=== PATIENT | female | born 1940 | race Two or more races ===

== ENCOUNTER 2024-11-29 17:12 | Inpatient (IN) | payer MEDICARE, MEDICAID, SELFPAY ==
[2024-11-29] VITALS (10 sets, daily range): BP systolic 155–179; BP diastolic 71–113; PULSE 87–95; RESP 18–97; TEMP 36.7–37; O2SAT 98–100; BMI 23.0; BMI 24.7
--- NOTE | 2024-11-29 17:26 | XR_ITS ---
Examination: Shoulder,right, 3 views Technique: Shoulder AP internal rotation, AP external rotation, Y view shoulder, 3 views Exam date and time :November 29, 2024 at 1801 hours INDICATIONS: Ground-level fall today with injury to the shoulder, shoulder pain. FINDINGS: Acute mildly impacted fracture fracture humeral neck Fractures, comminuted through the humeral head greater tuberosity No shoulder dislocation IMPRESSION: Acute fractures humeral head and neck
--- NOTE | 2024-11-29 17:26 | XR_ITS ---
Examination: CT brain head without contrast. 2-D sagittal coronal reconstructions Date and time of exam:November 29, 2024 1845 hours COMPARISON: September 04, 2019 INDICATIONS: Ground-level fall today images of the head, patient is anticoagulated CTDI: vol (mGy):48.8 DLP: (mGycm):896 Technique: Multiple CT axial sections of the brain have been obtained, 5 mm slice thickness. Contrast has not been administered. 2-D sagittal, coronal reconstructions have been obtained Low dose protocols were performed. One or more of the following dose reduction techniques were used; automated exposure control, adjustment of the mA and/or KV according to patient size, use of iterative reconstruction technique. Findings: No significant ventricular enlargement. Intra-axial or extra-axial hemorrhage density is not seen. No mass effect or midline shift Basal cisterns are not remarkable. Fourth ventricle is midline. Cranial vault intact. Impression: Negative for acute hemorrhage, mass effect or midline shift
--- NOTE | 2024-11-29 17:26 | XR_ITS ---
Examination: CT cervical spine without contrast 2-D sagittal reconstructions 2-D coronal reconstructions 3-D reconstructions. Exam date and time:November 29, 2024 1845 hours INDICATIONS: Ground-level fall today with injury to the neck, neck pain CTDI:vol (mGy) 7.6 DLP: (mGycm) 152 Technique: Multiple 2 mm axial sections of the cervical spine have been obtained. The coronal and sagittal reconstructions have been obtained. 3-D reconstructions have been obtained. Low dose protocols were performed. One or more of the following dose reduction techniques were used; automated exposure control, adjustment of the mA and/or KV according to patient size, use of iterative reconstruction technique. Findings: Axial sections demonstrate intact base of the skull. C1 exhibit satisfactory relationship to the odontoid. No acute cervical vertebral body fracture seen. Alignment posterior spinous processes satisfactory. Impression: No acute cervical fracture.
--- NOTE | 2024-11-29 17:26 | XR_ITS ---
Examination: Humerus 2 views right Technique: Humerus, AP lateral 2 views Date and time of exam: November 29, 2024 1808 hours INDICATIONS: Ground-level fall today with injury to the right arm, right arm pain. FINDINGS: Acute impacted fracture right humeral neck Comminuted fracture is humeral head through the greater tuberosity Shaft of the humerus mid and distal intact IMPRESSION: Acute fractures humeral head and neck
--- NOTE | 2024-11-29 17:26 | XR_ITS ---
Examination: AP chest single view Technique one AP portable semiupright chest single view Exam date and time: November 29, 2024 1759 hours INDICATIONS: Ground-level fall today with image of the chest, chest pain FINDINGS: Mildly larger and cardiac contour. Mild elevation right hemidiaphragm. No pneumothorax. Clavicles and ribs appear intact Partial visualization right humerus fractures IMPRESSION: No pneumothorax Please see the right humerus report
--- NOTE | 2024-11-29 17:35 | PC.NURSE ---
SLIP AND FALL LANDING O RIGHT SIDE BODY. C/O PAIN TO RIGHT ARM/SHOULDER AND ALL OF RIGHT LEG
--- NOTE | 2024-11-29 17:36 | PD.EDADULT ---
ED General RME/HPI General Chief complaint: Fall Stated complaint: FALL Time Seen by Provider: 11/29/24 17:25 Arrival date/time: 11/29/24 17:12 CC: Right shoulder/upper arm, right hip pain HPI patient slipped while attempting to put on her slippers while getting up from a sofa falling directly onto a tile floor. Falling onto her right side states minor strike for her head. Patient denies LOC or ALOC. Patient presents to the ER via EMS who report pain a 10 out of 10, no loss of consciousness the fall was not witnessed. Please note patient is visiting here from [place]. Related Data Home Medications ?Medication ?Instructions ?Recorded ?Confirmed ergocalciferol (vitamin D2) 1,250 50,000 unit PO QWEEK #0 caps 11/17/13 09/04/19 mcg (50,000 unit) capsule (Vitamin D2) omega-3 fatty acids 1,000 mg 1 cap PO DAILY ##0 11/17/13 09/04/19 capsule (Fish Oil Concentrate) albuterol sulfate 90 mcg/actuation 2 puff inhalation QID PRN sob 08/01/19 09/04/19 aerosol inhaler (Ventolin HFA) alendronate 70 mg tablet (Fosamax) 70 mg PO QWEEK 08/01/19 09/04/19 hydralazine 25 mg tablet 25 mg PO TID 08/01/19 09/04/19 losartan 50 mg tablet 50 mg PO QDAY 08/01/19 09/04/19 multivitamin-ferrous 1 tab PO QDAY 08/01/19 09/04/19 fumarate-folic acid 18 mg-400 mcg tablet (Centrum) prednisone 20 mg tablet 20 mg PO DAILY 08/01/19 09/04/19 calcium ER 600 mg (as carb,cit)-D3 1 tab PO BID 08/13/19 09/04/19 12.5 mcg (500 unit) tablet, ext.rel (Citracal-D3 Slow Release) omeprazole 40 mg capsule,delayed 40 mg PO DAILY 08/13/19 09/04/19 release atorvastatin 40 mg tablet 40 mg PO QDAY 08/15/19 09/04/19 prednisone 10 mg tablet 10 mg PO HS 09/02/19 09/04/19 acetaminophen 500 mg capsule 1,000 mg PO Q6H PRN Pain 09/04/19 09/04/19 Previous Rx's ?Medication ?Instructions ?Recorded clopidogrel 75 mg tablet (Plavix) 75 mg PO QDAY #30 tabs 09/24/15 fluticasone 250 mcg-salmeterol 50 1 inh inhalation BID #0 ea 08/17/19 mcg/dose blistr powdr for inhalation (Advair Diskus) folic acid 1 mg tablet 1 mg PO QDAY #30 tabs 08/17/19 ondansetron HCl 4 mg tablet 4 mg PO Q8H PRN nausea and 09/04/19 (Zofran) vomiting #20 tabs Allergies Allergy/AdvReac Type Severity Reaction Status Date / Time shrimp Allergy Severe Wheezing Verified 09/02/19 08:54 NSAIDS (Non-Steroidal Allergy Intermediate Swelling Verified 08/13/19 09:41 Anti-Inflamma Penicillins Allergy Intermediate Rash Verified 08/13/19 09:41 Review of Systems Review of Systems Narrative Review of Systems: GEN: No fever, no chills, no weight loss EYES: No discharge, no visual changes, no pain HEENT: No ear pain, no congestion, no sore throat PULM: No shortness of breath, no cough, no congestion CV: No chest pain, no dyspnea on exertion, no palpitations GI: No nausea, no vomiting, no diarrhea, no pain, no constipation : No frequency, no urgency, no dysuria MUSC/SKEL: No joint pain, specifically right shoulder upper arm, right hip. No back pain SKIN: No rash PSYCH: No hallucinations, no depression HEME/LYMPH: No easy bleeding or bruising tendencies NEURO: No weakness, no headache ED Exam Narrative Physical exam: [General: In moderate discomfort but not in any acute distress Head normocephalic no step-offs hematomas induration ulcerations or depressions. HEENT: Eyes pupils are PERRLA EOMs intact mouth pink moist membranes uvula is midline swallow symmetrical phonation is normal. Patient has dentures therefore there is unable to assess where there is a step-off but no tenderness to palpation of the upper and lower mandible. No pops or clicks with palpation of the TMJ with mastication. Swallow symmetrical phonation is normal. No otorrhea no rhinorrhea no raccoon's eyes or Colmenares sign. Neck is supple nontender, full range of motion flexion extension rotation limited to in a semi-Fowlers position with a high bed back. Chest equal chest rise nontender to palpation Respiratory: Clear to auscultation no wheezes crackles or rubs CV: Rate rhythm is regular no murmurs rubs or clicks Abdomen is distended secondary to body habitus soft nontender no masses positive bowel sounds all 4 quadrants Skin: Intact no petechiae rash induration ulceration or crepitus Extremities: Decreased range of motion of the right shoulder secondary to pain. Decreased range of motion of the right elbow secondary to pain in the shoulder. Full range of motion of the wrist and digits cap refill less than 2 seconds neurosensory intact. Significant pain with lateral or medial rotation of the right lower extremity pain elicited in the upper thigh. Unable to flex or extend knee. Left lower extremity full range of motion including flexion extension of the knee ankle and digits. Cap refill in the lower digits less than 2 seconds neurosensory intact Neuro: Awake alert oriented x3 Glascow coma 15 no focal deficits] Course Quality Measures none Orders Category Date Time Status EKG (ED ONLY) *Do not use* NOW Care 11/29/24 17:27 Completed Saline [Insert IV] NOW Care 11/29/24 17:26 Active Consult to Cardiology Stat Cons 11/29/24 18:53 Ordered Consult to Nephrology Stat Cons 11/29/24 18:52 Ordered CA echo doppler complete Stat Exams 11/29/24 19:[address] cervical spine wo con Stat Exams 11/29/24 17:[address] head/brain wo con Stat Exams 11/29/24 17:[address] pelvis wo con Stat Exams 11/29/24 18:29 Completed EKG (ED Only) Stat Exams 11/29/24 17:27 Ordered XR chest 1V Stat Exams 11/29/24 17:26 Completed XR hip LT w pelvis 2-3V Stat Exams 11/29/24 17:26 Taken XR hip RT w pelvis 2-3V Stat Exams 11/29/24 18:06 Completed XR humerus RT min 2V Stat Exams 11/29/24 17:26 Completed XR shoulder RT min 2V Stat Exams 11/29/24 17:26 Completed B-Type Natriuretic Peptide Stat Lab 11/29/24 17:47 Completed CBC Stat Lab 11/29/24 17:47 Completed Comprehensive Metabolic Panel Stat Lab 11/29/24 17:47 Completed Drug Screen,Urine Stat Lab 11/29/24 17:27 Ordered LDH (Lactate Dehydrogenase) Stat Lab 11/29/24 17:47 Completed Magnesium Stat Lab 11/29/24 17:47 Completed Partial Thromboplastin Time Stat Lab 11/29/24 17:47 Completed Prothrombin Time with INR Stat Lab 11/29/24 17:47 Completed Troponin I Stat Lab 11/29/24 17:47 Completed Urinalysis Stat Lab 11/29/24 17:27 Ordered Morphine Inj Med 11/29/24 18:28 Discontinued 2 mg IVP X1 ONE Morphine Inj Med 11/29/24 18:26 Discontinued 4 mg IVP X1 ONE Ondansetron Inj [Zofran Inj] Med 11/29/24 17:26 Discontinued 4 mg IV X1 ONE Sodium Chloride 0.9% 1000 ml [Ns] 1,000 ml Med 11/29/24 17:28 Active IV 85 mls/hr fentaNYL INJ [Sublimaze Inj] Med 11/29/24 17:26 Discontinued 50 mcg IV X1 ONE fentaNYL INJ [Sublimaze Inj] Med 11/29/24 18:11 Discontinued 50 mcg IV X1 ONE Vital Signs Vital signs: Vital Signs Temperature 98.0 F 11/29/24 17:16 Pulse Rate 94 11/29/24 17:16 Respiratory Rate 18 11/29/24 17:16 Blood Pressure 179/81 H 11/29/24 17:16 Pulse Oximetry (%) 100 11/29/24 17:16 Oxygen Delivery Method Room Air 11/29/24 17:16 [facility] Patient data External records reviewed:: [facility] previous records and EMS form Clinical information provided by:: patient and EMS Social determinants that could affect healthcare access:: none Patient has the following chronic illnesses:: Peritoneal dialysis How is presenting disease/condition affected by chronic disease/condition?: uneffected by Evaluation data The following diagnostics were reviewed and interpreted by me:: lab results, radiology exam(s) and EKG tracing(s) Lab and/or radiology exams considered but not ordered:: CBC shows a leukocytosis of 16.1 H&H of 9.3 and 27.2 no there are no recent old labs to compare to. Coags within acceptable limits CMP shows sodium 133 potassium 3.6 chloride 93 CO2 23.6 gap of 16 BUN of 28 creatinine of 7.0 GFR of 5 glucose of 113. No T. bili elevation, AST at 48 ALT at 58 LDH of 291 Troponin at 0.[address] and x-ray of the pelvis show an impacted subcapital fracture of the right femoral neck X-ray of the arm shows an humeral neck fracture as well. CT head and C-spine is interpreted by me read by radiology as negative for any acute finding Interpretation Summary: Minimally displaced right humeral neck fracture, right femoral neck fracture. Patient's case discussed with Dr.'s Sally Vargas who agrees to accept the patient for orthopedics, Dr. Womack, tungsten refiner, was consulted regarding peritoneal dialysis and laboratory findings. Dr. Olivares was consulted for cardiac consult. Medications Medications considered but not ordered:: None Medication administrations:: Medication Administration History Sodium Chloride (Ns) 1,000 mls @ 85 mls/hr IV .[id number] SABRINA Stop: 12/29/24 17:27 Last Admin: 11/29/24 17:47 Dose: 85 mls/hr Documented By: JUAN RAMON Discontinued Medications Fentanyl Citrate (Fentanyl Cit Inj 50 Mcg/Ml Amp 2ml) 50 mcg IV X1 ONE Stop: 11/29/24 17:27 Last Admin: 11/29/24 17:49 Dose: 50 mcg Documented By: JUAN RAMON Fentanyl Citrate (Fentanyl Cit Inj 50 Mcg/Ml Amp 2ml) 50 mcg IV X1 ONE Stop: 11/29/24 18:12 Last Admin: 11/29/24 18:18 Dose: 50 mcg Documented By: JUAN RAMON Morphine Sulfate (Morphine Sulf Inj 10 Mg/Ml Vial) 4 mg IVP X1 ONE Stop: 11/29/24 18:27 Last Admin: 11/29/24 19:23 Dose: Not Given Documented By: BATSHEVA Non-Admin Reason: Discontinued Morphine Sulfate (Morphine Sulf Inj 10 Mg/Ml Vial) 2 mg IVP X1 ONE Stop: 11/29/24 18:29 Last Admin: 11/29/24 19:20 Dose: 2 mg Documented By: BATSHEVA Ondansetron HCl (Ondansetron Inj 2 Mg/Ml Inj 2 Ml) 4 mg IV X1 ONE; Protocol Stop: 11/29/24 17:27 Last Admin: 11/29/24 17:47 Dose: 4 mg Documented By: JUAN RAMON None Consultations Consultation(s) initiated? (list below): Yes Consultation #1 (Physician, Specialty, Details): Luna Time: 19:00 Consultation #2 (Physician, Specialty, Details): Anumandla Time: 19:30 Diagnosis Differential Diagnosis ED Complaint MDM: Arm fracture hip fracture leg fracture Most likely diagnosis given after review of the tests above:: Humerus fracture femoral neck fracture Admission Indicated Admission indicated?: indicated Explain why admission is indicated or not indicated:: Require surgical management Admission Request Was there a request for admission?: No Disposition Plan Disposition Plan: Admit Medical Decision Making Differential Diagnosis Differential Diagnosis: Arm fracture hip fracture leg fracture Lab Data 11/29/24 17:47 11/29/24 17:47 Labs: Lab Results 11/29/24 Range/Units 17:47 WBC 16.1 H (3.6-11.0) Thou/mm3 RBC 3.03 L (4.00-5.20) Miln/mm3 Hgb 9.3 L (12.0-16.0) g/dL Hct 27.2 L (36.0-46.0) % MCV 90 (80-100) fL MCH 30.7 (25.0-35.0) pg MCHC 34.2 (31.0-37.0) g/dl RDW Std Deviation 48.1 H (36.4-46.3) fL Plt Count 390 (140-440) Thou/mm3 Neut % (Auto) 76 (37-80) % Lymph % (Auto) 16 (10-50) % [place] % (Auto) 6 (0-12) % Eos % (Auto) 1 (0-10) % Baso % (Auto) 0 (0-2.5) % Neut # (Auto) 12.2 H (1.8-7.7) Thou/mm3 Lymph # (Auto) 2.5 (1.0-4.8) Thou/mm3 [place] # (Auto) 1.0 H (0.0-0.8) Thou/mm3 Eos # (Auto) 0.2 (0.0-0.5) Thou/mm3 Baso # (Auto) 0.1 (0.0-0.2) Thou/mm3 Immature Gran # (Auto) 0.11 H (0.00-0.00) Thou/mm3 Absolute Nucleated RBC 0.00 (0.00-0.00) Thou/mm3 Immature Gran % 1 H (0-0) % Nucleated RBC % 0 (0) /100 WBC PT 11.1 (9.0-12.2) Seconds INR 1.0 (0.9-1.3) APTT 28.7 (22.0-36.0) Seconds Sodium 133 L (136-145) mMol/L Potassium 3.6 (3.4-5.1) mMol/L Chloride 93 L (98-107) mMol/L Carbon Dioxide 23.6 (20.0-31.0) mMol/L Anion Gap 16 (7-16) BUN 28 H (9-23) mg/dL Creatinine 7.0 H* (0.6-1.3) mg/dL Estim Creat Clear Calc 4.2 L (>60) mL/min eGFR 5 L* (60 - ) See Note BUN/Creatinine Ratio 4 L (12-20) Ratio Glucose 113 H (74-106) mg/dL Calculated Osmolality 272 L (275-295) Calcium 9.0 (8.3-10.6) mg/dL Corrected Calcium 9.4 (8.5-10.1) mg/dL Magnesium 1.6 (1.6-2.6) mg/dL Total Bilirubin 0.3 (0.3-1.2) mg/dL AST 48 H (0-34) U/L ALT 58 H (10-49) U/L Alkaline Phosphatase 83 (46-116) U/L Lactate Dehydrogenase 291 H (120-246) U/L Troponin I 0.039 (0.0-0.045) ng/mL B-Natriuretic Peptide 653 H* (0-100) pg/mL Total Protein 6.4 (5.7-8.2) gm/dL Albumin 3.5 (3.4-4.8) gm/dL Globulin 2.9 (2.3-3.5) gm/dL Albumin/Globulin Ratio 1.2 (1.2-2.2) Discharge Plan Plan Patient Disposition: Other Care w/in Hosp ([facility]) Patient condition on transfer: Stable Prescriptions/Referrals Prescriptions/Med Rec: No Action omega-3 fatty acids [Fish Oil Concentrate] 1 CAP capsule 1 cap PO DAILY Qty: 0 ergocalciferol (vitamin D2) [Vitamin D2] 50,000 UNIT capsule 50,000 unit PO QWEEK Qty: 0 Rx Instructions: MONDAYS clopidogrel [Plavix] 75 MG tablet 75 mg PO QDAY Qty: 30 0RF losartan 50 mg Tablet 50 mg PO QDAY alendronate [Fosamax] 70 mg Tablet 70 mg PO QWEEK Rx Instructions: MONDAYS prednisone 20 mg Tablet 20 mg PO DAILY hydralazine 25 mg Tablet 25 mg PO TID Centrum 18-400 mg-mcg Tablet 1 tab PO QDAY albuterol sulfate [Ventolin HFA] 90 mcg/actuation Hfa Aerosol Inhaler 2 puff INHALATION QID PRN (Reason: sob) prednisone 10 mg Tablet 10 mg PO HS ondansetron HCl [Zofran] 4 mg tablet 4 mg PO Q8H PRN (Reason: nausea and vomiting) Qty: 20 0RF acetaminophen 500 mg Capsule 1,000 mg PO Q6H PRN (Reason: Pain) omeprazole 40 mg Capsule,Delayed Release(Dr/Ec) 40 mg PO DAILY calcium carb, citrate-vit D3 [Citracal-D3 Slow Release] 600 mg calcium- 500 unit Tablet Extended Release 1 tab PO BID atorvastatin 40 mg Tablet 40 mg PO QDAY folic acid 1 mg Tablet 1 mg PO QDAY Qty: 30 0RF fluticasone propion-salmeterol [Advair Diskus] 250-50 mcg/dose Blister With Device 1 inh INHALATION BID Qty: 0 0RF Referrals: No Primary/Family,Physician [Primary Care Provider] - In 1 week Problem List Clinical Impression: Closed fracture of neck of right femur, Closed fracture of neck of right humerus, Fall from ground level Patient/Caregiver Discharge Instructions Print Language: Greenlandic Stand Alone Forms: Saranya Award Info., Patient Portal Info Letter PA/LIVE HANGER Supervising Physician PA/LIVE HANGER Supervising Physician: George Obrien ENP
[2024-11-29] MEDS: ONDANSETRON INJ 2 MG/ML INJ 2 ML 4 MG IV ×2 (17:47→22:09)
[2024-11-29] MEDS: SODIUM CHLORIDE 0.9% 1000 ML 1,000 ML 85 ML IV (17:47)
[2024-11-29] MEDS: fentaNYL CIT INJ 50 mCg/ML AMP 2ML IV ×2 (17:49→18:18)
[2024-11-29 17:59] LABS: Basophils # (Auto) 0.1 Thou/mm3 (0.0-0.2); Basophils % (Auto) 0 % (0-2.5); Eosinophils # (Auto) 0.2 Thou/mm3 (0.0-0.5); Eosinophils % (Auto) 1 % (0-10); Hematocrit 27.2 % (36.0-46.0); Hemoglobin 9.3 g/dL (12.0-16.0); Immature Granulocytes % (Auto) 1 % (0-0); Immature Granulocytes Auto 0.11 Thou/mm3 (0.00-0.00); Lymphocytes # (Auto) 2.5 Thou/mm3 (1.0-4.8); Lymphocytes % (Auto) 16 % (10-50); Mean Corpuscular HGB Conc 34.2 g/dl (31.0-37.0); Mean Corpuscular Hemoglobin 30.7 pg (25.0-35.0); Mean Corpuscular Volume 90 fL (80-100); Monocytes % (Auto) 6 % (0-12); Neutrophils # (Auto) 12.2 Thou/mm3 (1.8-7.7); Neutrophils % (Auto) 76 % (37-80); Nucleated Red Blood Cell % 0 /100 WBC (0); Platelet Count 390 Thou/mm3 (140-440); RDW Standard Deviation 48.1 fL (36.4-46.3); Red Blood Count 3.03 Miln/mm3 (4.00-5.20); White Blood Count 16.1 Thou/mm3 (3.6-11.0)
--- NOTE | 2024-11-29 18:06 | XR_ITS ---
Examination:Right hip AP, lateral, AP pelvis 3 views Technique: Hip AP lateral, AP pelvis, 3 views Exam date and time:November 29, 2024 1809 hours INDICATIONS: Patient fell today with injury the right hip, right hip pain. FINDINGS: Acute impacted right subcapital hip fracture Left hip bones of the pelvis is intact IMPRESSION: Acute impacted right subcapital fracture.
[2024-11-29 18:20] LABS: Alanine Aminotransferase 58 U/L (10-49); Albumin, Serum 3.5 gm/dL (3.4-4.8); Albumin/Globulin Ratio 1.2 (1.2-2.2); Alkaline Phosphatase 83 U/L (46-116); Anion Gap 16 (7-16); Aspartate Amino Transferase 48 U/L (0-34); BUN/Creatinine Ratio 4 Ratio (12-20); Bilirubin,Total 0.3 mg/dL (0.3-1.2); Blood Urea Nitrogen 28 mg/dL (9-23); Calcium (Corrected) 9.4 mg/dL (8.5-10.1); Carbon Dioxide 23.6 mMol/L (20.0-31.0); Chloride 93 mMol/L (98-107); Estimated Creatinine Clearance 4.2 mL/min (>60); Globulin 2.9 gm/dL (2.3-3.5); Glucose 113 mg/dL (74-106); LDH (Lactate Dehydrogenase) 291 U/L (120-246); Magnesium 1.6 mg/dL (1.6-2.6); Osmolality,Calculated 272 (275-295); Potassium 3.6 mMol/L (3.4-5.1); Sodium 133 mMol/L (136-145); Total Protein 6.4 gm/dL (5.7-8.2); Troponin I 0.039 ng/mL (0.0-0.045); eGFR 5 See Note
[2024-11-29 18:27] LABS: Partial Thromboplastin Time 28.7 Seconds (22.0-36.0); Prothrombin Time 11.1 Seconds (9.0-12.2)
[2024-11-29 18:28] LABS: B-Type Natriuretic Peptide 653 pg/mL (0-100)
--- NOTE | 2024-11-29 18:29 | XR_ITS ---
Examination: CT pelvis without intravenous contrast. 2-D sagittal and coronal reconstructions. Date and time of exam:November 29, 2024 at 1849 hours INDICATIONS: Patient fell today with injury to the right hip, right hip pain CTDI: vol (mGy) :5.18 DLP: (mGycm) : 161 Technique: Multiple 3 mm axial sections of the pelvis have been obtained with the 64 slice high resolution scanner. 2-D sagittal and coronal reconstructions. Low dose protocols were performed. One or more of the following dose reduction techniques were used; automated exposure control, adjustment of the mA and/or KV according to patient size, use of iterative reconstruction technique. Findings: Moderate osteopenia Sacral segments, iliac bones, acetabular regions appear intact Acute impacted right subcapital hip fracture No active dislocation IMPRESSION: Acute impacted right subcapital hip fracture
[2024-11-29] MEDS: MORPHINE SULF INJ 10 MG/ML VIAL 2 MG IVP (19:20)
--- NOTE | 2024-11-29 20:02 | EVENTNT_ITS ---
Documentation for date of: 11/29/24 Event Note Event Note: An 84-year-old female presented to the ER with the chief complaint of right- sided hip and shoulder pain following a mechanical fall. The patient reports that while sitting on the sofa holding a cup of tea, she attempted to stand to get something to eat. As she tried to slip her feet into her home slippers on the tile yovani, her feet became entangled, resulting in a fall onto her right side. She did not lose consciousness but did hit her head. She experienced significant pain on her right side, particularly in the shoulder, and was unable to get up. Her grandson, who had just returned from school, heard her cries and alerted her daughter, who returned home shortly after and called EMS. The patient was transported to the hospital via ambulance. She reports decreased appetite over several days preceding the fall. The patient has a history of HTN, CKD on peritoneal dialysis for 3?4 years, HLD, CVA, and asthma. Current medications include Calcitriol, Metoprolol, Atorvastatin, Plavix, Pantoprazole, and Lorazepam. Social history is negative for smoking, alcohol, and recreational drug use. She resides in [place] but is currently staying with her daughter temporarily due to her son's travel. She is non-ambulatory and dependent for care. In the ER, vital signs recorded as temp 98.0 F, HR 94, RR 18, BP 179/81 mmHg. Labs revealed WBC 16.1 , Hb 9.3 , Plt 390, Na 130 , K 3.6, BUN 28, Cr 7, Glucose 113, BNP [address] demonstrated an acute impacted right subcapital hip fracture. X-ray revealed acute fractures of the right humeral head and neck. Head CT was negative for acute hemorrhage, mass effect, or midline shift. Ortho was consulted; cardiology clearance is needed. Patient was admitted. Right Hip Fracture (Acute impacted right subcapital fracture) Right Shoulder Fracture (Acute humeral head and neck fracture) #Assessment: - Mechanical fall, inability to ambulate, localized right hip pain - Imaging: CT confirming acute impacted right subcapital fracture, X-ray confirming acute humeral head and neck fracture - Elderly, non-ambulatory, multiple comorbidities #Plan: - Ortho consult obtained; awaiting cardiology clearance - Pain management with scheduled acetaminophen and opioids as needed - Immobilization with sling or shoulder immobilizer - DVT prophylaxis - Fall risk precautions, initiate PT/OT post-operatively - Hold plavix now Hypertension #Assessment: - Elevated BP on admission (179/81 mmHg), chronic history of HTN - On Metoprolol #Plan: - Continue home antihypertensive regimen - Monitor BP Chronic Kidney Disease on Peritoneal Dialysis #Assessment: - ESRD on peritoneal dialysis x 3?4 years - Labs: Cr 7, BUN 28, Na 130, K 3.6 #Plan: - Coordinate with nephrology for dialysis schedule around surgery - Monitor electrolytes and volume status - Avoid nephrotoxic medications; dose-adjust meds as needed - Renal-safe pain control plan Anemia #Assessment: - Hb 9.3 g/dL, likely multifactorial #Plan: - Monitor CBC daily - Evaluate for iron studies, B12, folate Leukocytosis #Assessment: - WBC 16.1; unclear if stress response, occult infection, or other etiology - No fever; no localizing signs of infection #Plan: - Monitor WBC trend - Check procalcitonin
--- NOTE | 2024-11-29 21:54 | PD.RESHP ---
Documentation for date of: 11/29/24 HPI History of Present Illness Chief complaint: Fall down History of present illness: HPI:An 84-year-old female patient with past medical history of ESRD and peritoneal dialysis following up with a machinist supervisor outside in [place]'s name is Dr. Virk, hypertension, hyperlipidemia, asthma presented to the ED after she fell down at her home. Patient reported that she was attempting to stand up from a sofa however she lost her balance and slipped and hit the right side of her body. She denied any loss of consciousness, and she mentions that she remember the incidents clearly. Patient reported mild trauma to her head however denied any loss of consciousness or abnormal movement. She called her daughter who came and picked her up and called EMS. Patient reported that she originally lives in [place] however she come to visit her son here in [place]. She has been here for the past 1 month and a half and she has not established a care with machinist supervisor outside in [facility] so far. ED course:In the ER, vital signs recorded as temp 98.0 F, HR 94, RR 18, BP 179/81 mmHg. Labs revealed WBC 16.1 , Hb 9.3 , Plt 390, Na 130 , K 3.6, BUN 28, Cr 7, Glucose 113, BNP 6[address] demonstrated an acute impacted right subcapital hip fracture. X-ray revealed acute fractures of the right humeral head and neck. Head CT was negative for acute hemorrhage, mass effect, or midline shift. Ortho was consulted; cardiology clearance is needed. Patient was admitted. PMH: As above Social hx: Alcohol: Denied Tobacco: Denied Illicit drugs: Denied Allergies: NSAIDs, penicillins Review of Systems Review of Systems Systems Reviewed: All systems reviewed, normal except as documented Exam Vital Signs Temp Pulse Resp BP Pulse Ox O2 Del Method 98.1 F 94 18 172/109 H 100 Room Air 11/29/24 20:05 11/29/24 20:05 11/29/24 20:05 11/29/24 20:05 11/29/24 20:05 11/29/24 20:05 Narrative Exam GEN: AOx3, able to speak full sentences however patient was in pain, HEENT: NC/AC, oral mucosa moist, neck supple CVS: RRR, S1-S2 present, no murmurs appreciated RESP: CTAB GI: soft,non distended, non tender, NBS MSK: Right shoulder and right hip has limited mobility, severe tenderness. SKIN: warm and dry CAR SALTER: CN II-XII and Sensation grossly intact. Results: Labs 11/30/24 07:05 11/30/24 04:46 Labs: Short CBC 11/29/24 Range/Units 17:47 WBC 16.1 H (3.6-11.0) Thou/mm3 Hgb 9.3 L (12.0-16.0) g/dL Hct 27.2 L (36.0-46.0) % Plt Count 390 (140-440) Thou/mm3 BMP 11/29/24 17:47 Sodium 133 L Potassium 3.6 Chloride 93 L Carbon Dioxide 23.6 BUN 28 H Creatinine 7.0 H* Glucose 113 H Calcium 9.0 Cardiac Enzymes 11/29/24 Range/Units 17:47 Troponin I 0.039 (0.0-0.045) ng/mL Liver Function 11/29/24 Range/Units 17:47 Total Bilirubin 0.3 (0.3-1.2) mg/dL AST 48 H (0-34) U/L ALT 58 H (10-49) U/L Alkaline Phosphatase 83 (46-116) U/L Albumin 3.5 (3.4-4.8) gm/dL Quality Measures Quality Measures none Advance care planning discussed with:: patient Medications Home Medications and Allergies Home Medications ?Medication ?Instructions ?Recorded ?Confirmed ?Type ergocalciferol (vitamin D2) 1,250 50,000 unit PO QWEEK #0 caps 11/17/13 11/30/24 History mcg (50,000 unit) capsule (Vitamin D2) omega-3 fatty acids 1,000 mg 1 cap PO DAILY ##0 11/17/13 11/30/24 History capsule (Fish Oil Concentrate) albuterol sulfate 90 mcg/actuation 2 puff inhalation QID PRN sob 08/01/19 11/30/24 History aerosol inhaler (Ventolin HFA) alendronate 70 mg tablet (Fosamax) 70 mg PO QWEEK 08/01/19 11/30/24 History hydralazine 25 mg tablet 25 mg PO TID 08/01/19 11/30/24 History losartan 50 mg tablet 50 mg PO QDAY 08/01/19 11/30/24 History multivitamin-ferrous 1 tab PO QDAY 08/01/19 11/30/24 History fumarate-folic acid 18 mg-400 mcg tablet (Centrum) prednisone 20 mg tablet 20 mg PO DAILY 08/01/19 11/30/24 History calcium ER 600 mg (as carb,cit)-D3 1 tab PO BID 08/13/19 11/30/24 History 12.5 mcg (500 unit) tablet, ext.rel (Citracal-D3 Slow Release) omeprazole 40 mg capsule,delayed 40 mg PO DAILY 08/13/19 11/30/24 History release atorvastatin 40 mg tablet 40 mg PO QDAY 08/15/19 11/30/24 History prednisone 10 mg tablet 10 mg PO HS 09/02/19 11/30/24 History acetaminophen 500 mg capsule 1,000 mg PO Q6H PRN Pain 09/04/19 11/30/24 History calcitriol 0.25 mcg capsule 0.25 mcg PO QDAY 11/30/24 11/30/24 History metoprolol tartrate 25 mg tablet mg 11/30/24 History pantoprazole 40 mg tablet,delayed mg PO 11/30/24 History release Allergies Allergy/AdvReac Type Severity Reaction Status Date / Time shrimp Allergy Severe Wheezing Verified 09/02/19 08:54 NSAIDS (Non-Steroidal Allergy Intermediate Swelling Verified 08/13/19 09:41 Anti-Inflamma Penicillins Allergy Intermediate Rash Verified 08/13/19 09:41 Visit Medications Acetaminophen (Acetaminophen 325 Mg Tablet) 650 mg PO Q6H PRN PRN Reason: Fever >100.5 and mild pain 1-3 Stop: 12/29/24 21:27 Albuterol/Ipratropium (Albuterol/Ipratropium (Duoneb) Rt Annika 3 Ml Nebu) 3 ml INH Q6HRRT SABRINA Stop: 12/30/24 00:59 Budesonide (Budesonide Rt 0.25 Mg/2 Ml Nebu) 0.25 mg INH BIDRT SABRINA Stop: 12/29/24 21:44 Hydromorphone HCl (Hydromorphone Inj 2 Mg/Ml Vial) 0.5 mg IVP Q3H PRN PRN Reason: Pain 7-10 Stop: 12/04/24 21:32 Sodium Chloride (Ns) 1,000 mls @ 40 mls/hr IV .Q24H SABRINA Stop: 12/29/24 21:36 Labetalol HCl (Labetalol Inj 5 Mg/Ml Vial 20 Ml) 10 mg IVP Q3H PRN PRN Reason: SBP >180mmHg Stop: 12/29/24 21:41 Metoprolol Tartrate (Metoprolol Tartrate 25 Mg Tablet) 12.5 mg PO BID [facility] Stop: 12/29/24 21:44 Ondansetron HCl (Ondansetron Inj 2 Mg/Ml Inj 2 Ml) 4 mg IV Q6H PRN; Protocol PRN Reason: NAUSEA OR VOMITING Stop: 12/29/24 21:32 Oxycodone/Acetaminophen (Oxycodone/Apap 5/325 Tablet) 1 tab PO Q6H PRN PRN Reason: PAIN SCALE 4-6 (Moderate Stop: 12/04/24 21:32 Pantoprazole Sodium (Pantoprazole 40 Mg Tablet) 40 mg PO QDAY [facility] Stop: 12/30/24 08:59 Pharmacy Consult (Pharmacy Renal Dose Adjustment 1 Ea) 1 each XX PRN PRN PRN Reason: CONSULT Stop: 12/29/24 21:46 Discontinued Medications Cyclobenzaprine HCl (Cyclobenzaprine 5 Mg Tablet) 2.5 mg PO X1 ONE Stop: 11/29/24 21:48 Fentanyl Citrate (Fentanyl Cit Inj 50 Mcg/Ml Amp 2ml) 50 mcg IV X1 ONE Stop: 11/29/24 17:27 Last Admin: 11/29/24 17:49 Dose: 50 mcg Fentanyl Citrate (Fentanyl Cit Inj 50 Mcg/Ml Amp 2ml) 50 mcg IV X1 ONE Stop: 11/29/24 18:12 Last Admin: 11/29/24 18:18 Dose: 50 mcg Sodium Chloride (Ns) 1,000 mls @ 85 mls/hr IV .[id number] [facility] Stop: 12/29/24 17:27 Last Admin: 11/29/24 17:47 Dose: 85 mls/hr Labetalol HCl (Labetalol Inj 5 Mg/Ml Vial 20 Ml) 10 mg IVP Q3H PRN PRN Reason: SBP >180mmHg Stop: 12/29/24 21:41 Morphine Sulfate (Morphine Sulf Inj 10 Mg/Ml Vial) 4 mg IVP X1 ONE Stop: 11/29/24 18:27 Last Admin: 11/29/24 19:23 Dose: Not Given Morphine Sulfate (Morphine Sulf Inj 10 Mg/Ml Vial) 2 mg IVP X1 ONE Stop: 11/29/24 18:29 Last Admin: 11/29/24 19:20 Dose: 2 mg Ondansetron HCl (Ondansetron Inj 2 Mg/Ml Inj 2 Ml) 4 mg IV X1 ONE; Protocol Stop: 11/29/24 17:27 Last Admin: 11/29/24 17:47 Dose: 4 mg Assessment & Plan Plan Summary:An 84-year-old female patient with past medical history of ESRD and peritoneal dialysis following up with a machinist supervisor outside in [place]'s name is Dr. Virk, hypertension, hyperlipidemia, asthma presented to the ED after she fell down at her home. Patient reported that she was attempting to stand up from a sofa however she lost her balance and slipped and hit the right side of her body. Patient was admitted for management of acute hip and shoulder fractures. #Right Hip Fracture (Acute impacted right subcapital fracture) #Right Shoulder Fracture (Acute humeral head and neck fracture) - Mechanical fall, inability to ambulate, localized right hip pain - Imaging: CT confirming acute impacted right subcapital fracture, X-ray confirming acute humeral head and neck fracture - Elderly, non-ambulatory, multiple comorbidities Plan: - Ortho consult obtained to Dr. Lee; awaiting cardiology clearance - Pain management with acetaminophen and opioids as needed - Immobilization with sling or shoulder immobilizer - DVT prophylaxis with SCDs - Fall risk precautions, initiate PT/OT post-operatively - Hold plavix now ? Muscle relaxant Flexeril 2.5 mg p.o. x 1 #Hypertension - Elevated BP on admission (179/81 mmHg), chronic history of HTN, at home on Metoprolol Plan: -Resume metoprolol tartrate 12.5 mg p.o. twice daily - Monitor BP #Chronic Kidney Disease on Peritoneal Dialysis - ESRD on peritoneal dialysis x 3?4 years - Labs: Cr 7, BUN 28, Na 130, K 3.6 ?Patient is following up with a machinist supervisor outside Dr. Virk in [place] ? Has not established care with a machinist supervisor outside in [facility] as the patient is only visiting her son for the past 1 month and a half Plan: -Nephrology was consulted, follow-up with recommendations - Monitor electrolytes and volume status - Avoid nephrotoxic medications; dose-adjust meds as needed - Renal-safe pain control plan #Anemia - Hb 9.3 g/dL, likely multifactorial Plan: - Monitor CBC daily - Evaluate for iron studies, B12, folate if needed ? Consider blood transfusion before surgery if needed #Leukocytosis most likely reactive - WBC 16.1; unclear if stress response, occult infection, or other etiology, - No fever; no localizing signs of infection Plan: - Monitor WBC trend - Check procalcitonin Hospital Maintenance: FEN: Renal diet DVT ppx: SCD GI ppx: Protonix IV lines: PIV Valdovinos: Pure wick Code status: Full code Dispo: Med/tele Patient's plan and care discussed with my attending, Dr. Teddy Salcido MD Internal Medicine PGY-2 Attending Provider Attestation/Addendum Pt was evaluated and plan formulated together with the housestaff team. I have reviewed the residents note above and agree with most of its content. Please refer to the residents note for additional details.
[2024-11-29] MEDS: CYCLObenzaPRINE 5 MG TABLET 2.5 MG PO (22:07)
[2024-11-29] MEDS: METOPROLOL TARTRATE 25 MG TABLET 12.5 MG PO (22:07)
[2024-11-29] MEDS: HYDROmorphone INJ 2 MG/ML VIAL 0.5 MG IVP (22:08)
[2024-11-29] MEDS: BUDESONIDE RT 0.25 MG/2 ML NEBU INH (22:17)
[2024-11-29] MEDS: SODIUM CHLORIDE 0.9% 1000 ML 1,000 ML 40 ML IV (22:24)
[2024-11-29 22:33] LABS: Procalcitonin 0.31 ng/ml (0.0-0.49)
[2024-11-30] VITALS (14 sets, daily range): BP systolic 130–162; BP diastolic 68–103; PULSE 77–120; RESP 11–22; TEMP 36.1–36.9; O2SAT 88–100
[2024-11-30] MEDS: ALBUTEROL/IPRATROPIUM (Duoneb) RT SOL 3 ML NEBU INH ×4 (00:57→19:09)
[2024-11-30] MEDS: HYDROmorphone INJ 2 MG/ML VIAL 0.5 MG IVP ×4 (03:47→20:12)
[2024-11-30 06:14] LABS: Alanine Aminotransferase 51 U/L (10-49); Albumin, Serum 3.6 gm/dL (3.4-4.8); Albumin/Globulin Ratio 1.2 (1.2-2.2); Alkaline Phosphatase 90 U/L (46-116); Anion Gap 16 (7-16); Aspartate Amino Transferase 37 U/L (0-34); BUN/Creatinine Ratio 4 Ratio (12-20); Bilirubin,Total 0.3 mg/dL (0.3-1.2); Blood Urea Nitrogen 31 mg/dL (9-23); Calcium (Corrected) 9.3 mg/dL (8.5-10.1); Carbon Dioxide 23.5 mMol/L (20.0-31.0); Chloride 94 mMol/L (98-107); Creatinine (Component) 7.6 mg/dL (0.6-1.3); Estimated Creatinine Clearance 4.3 mL/min (>60); Globulin 2.9 gm/dL (2.3-3.5); Glucose 124 mg/dL (74-106); Magnesium 1.7 mg/dL (1.6-2.6); Osmolality,Calculated 273 (275-295); Phosphorous 6.3 mg/dL (2.4-5.1); Potassium 4.4 mMol/L (3.4-5.1); Sodium 133 mMol/L (136-145); Total Protein 6.5 gm/dL (5.7-8.2); eGFR 5 See Note
[2024-11-30] MEDS: BUDESONIDE RT 0.25 MG/2 ML NEBU INH ×2 (06:22→19:09)
[2024-11-30 07:56] LABS: Thyroid Stimulating Hormone 0.41 uIU/mL (0.55-4.78)
[2024-11-30 08:03] LABS: Basophils % (Auto) 0 % (0-2.5); Eosinophils % (Auto) 0 % (0-10); Hematocrit 25.5 % (36.0-46.0); Immature Granulocytes % (Auto) 1 % (0-0); Immature Granulocytes Auto 0.08 Thou/mm3 (0.00-0.00); Lymphocytes # (Auto) 1.3 Thou/mm3 (1.0-4.8); Lymphocytes % (Auto) 8 % (10-50); Mean Corpuscular HGB Conc 33.7 g/dl (31.0-37.0); Mean Corpuscular Hemoglobin 30.7 pg (25.0-35.0); Mean Corpuscular Volume 91 fL (80-100); Monocytes # (Auto) 0.7 Thou/mm3 (0.0-0.8); Monocytes % (Auto) 4 % (0-12); Neutrophils % (Auto) 87 % (37-80); Nucleated Red Blood Cell % 0 /100 WBC (0); Platelet Count 341 Thou/mm3 (140-440); RDW Standard Deviation 49.1 fL (36.4-46.3); White Blood Count 16.1 Thou/mm3 (3.6-11.0)
[2024-11-30] MEDS: METOPROLOL TARTRATE 25 MG TABLET 12.5 MG PO ×2 (08:09→20:15)
[2024-11-30] MEDS: PANTOPRAZOLE 40 MG TABLET PO (08:09)
[2024-11-30 09:02] LABS: Hepatitis A Antibody IgM Non Reactive (Non React); Hepatitis B Core Antibody IgM Non Reactive (Non React); Hepatitis B Surface Ab NonReact(Not Immune) (Immune); Hepatitis B Surface Antigen Non Reactive (Non React); Hepatitis C Antibody Non Reactive (Non React)
--- NOTE | 2024-11-30 09:22 | PD.RESCONSUL ---
HPI Data of Consult Patient: new to practice Consult date: 11/30/24 Requesting Physician: Joseph Hernandez MD Admitting Provider: Leo Espinal MD Attending Provider: Joseph Hernandez MD Primary Care Provider: Physician No Primary/Family Consult Narrative Reason for consult: Preoperative cardiac risk assessment History of present illness: Ms. Lee is a 84-year-old female with past medical history of diastolic heart failure, hyperlipidemia, hypertension, end-stage renal disease on peritoneal dialysis, CVA 15 years ago, asthma and osteoarthritis who presented to [facility] emergency department on 11/29/2024 with a chief complaint of status post mechanical fall. Patient reported that she walks using a walker at home and she tripped on her slipper causing her to fall down and hit the right side of her body. Patient denied any dizziness, presyncope, loss of consciousness and mentions that she remembers the incident clearly. Patient originally lives in [place], was visiting her daughter here in [place], reports that she has limited mobility, feels short of breath after about 50-60 steps, is independent in ADLs uses a walker but feels mildly short of breath during ADLs. Patient does report history of valve problems in the past reports was hospitalized in [place] for heart problems. ED Course: ED Vitals: On presentation in ED blood pressure 179/81, heart rate 94, respiratory 18, temp 98, O2 sat 100 on room air ED Labs: ED labs significant for WBC 16.1, hemoglobin 9.3, hematocrit 27.2, RBC 3.03, platelet 390 sodium 133, potassium 3.6, chloride 93, venous CO2 23.6, BUN 28, creatinine 7.0, GFR 5, glucose 113, calcium 9.0, magnesium 1.6, bilirubin 0.3, AST 48, ALT 58, LDH 291, BNP 653 trop rapid during the cath today onin negative 0.039 ED Imaging: Cervical spine CT showed no acute cervical fracture, Chest x-ray negative for pneumothorax, CT negative for acute hemorrhage, mass effect or midline shift, Humerus x-ray shows acute fractures humeral head and neck (comminuted fracture and humeral head through greater tuberosity) Shoulder x-ray acute fracture of humeral head and neck Pelvis CT shows acute impacted right subcapital hip fracture ED Treatment:Orthopedics was consulted, recommended cardiology clearance cc:: cc: Joseph Hernandez MD Review of Systems Review of Systems Narrative Review of Systems: ROS: -CONSTITUTIONAL: Denies weight loss, fever and chills. -HEENT: Denies changes in vision and hearing. -RESPIRATORY: Positive for SOB and denies cough. -CV: Denies palpitations and Chest Pain. -GI: Denies abdominal pain, nausea, vomiting,constipation and diarrhea. -: Denies dysuria and urinary frequency. -MSK: Positive for right hip pain, right shoulder pain. -SKIN: Denies rash and pruritus. -NEUROLOGICAL: Denies headache and syncope. -PSYCHIATRIC: Denies recent changes in mood. Denies anxiety and depression. 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 Exam Vital Signs Temp Pulse Resp BP Pulse Ox O2 Del Method O2 Flow Rate 97.1 F 88 17 131/78 H 94 L Nasal Cannula 1 11/30/24 08:00 11/30/24 08:09 11/30/24 08:00 11/30/24 08:09 11/30/24 08:00 11/30/24 08:00 11/30/24 08:00 Narrative Exam Physical Exam General: Awake and in no acute distress. Conversational and non-toxic appearing. HEENT: Normocephalic, atraumatic, mucous membranes moist. Heart: Regular rate and rhythm, positive murmur in aortic area, pulmonic area and mitral area. Lungs: Clear to auscultation with no wheezing or crackles. Abdomen: Soft, nondistended, nontender, positive bowel sounds. ?No guarding or rebound tenderness. Neurologic: Alert and oriented x3, no gross neurological deficit, and patient able to move all 4 extremities. Extremities: Right arm in sling, right leg shorter than left, externally rotated. Skin: No rash or ecchymoses. Results Labs 11/30/24 07:05 11/30/24 04:46 Labs: Short CBC 11/29/24 11/30/24 Range/Units 17:47 07:05 WBC 16.1 H 16.1 H (3.6-11.0) Thou/mm3 Hgb 9.3 L (12.0-16.0) g/dL Hct 27.2 L 25.5 L (36.0-46.0) % Plt Count 390 341 D (140-440) Thou/mm3 BMP 11/29/24 11/30/24 17:47 04:46 Sodium 133 L 133 L Potassium 3.6 4.4 D Chloride 93 L 94 L Carbon Dioxide 23.6 23.5 BUN 28 H 31 H Creatinine 7.0 H* 7.6 H* D Glucose 113 H 124 H Calcium 9.0 9.0 Cardiac Enzymes 11/29/24 Range/Units 17:47 Troponin I 0.039 (0.0-0.045) ng/mL Liver Function 11/29/24 11/30/24 Range/Units 17:47 04:46 Total Bilirubin 0.3 0.3 (0.3-1.2) mg/dL AST 48 H 37 H (0-34) U/L ALT 58 H 51 H (10-49) U/L Alkaline Phosphatase 83 90 (46-116) U/L Albumin 3.5 3.6 (3.4-4.8) gm/dL Quality Measures Quality Measures none Advance care planning discussed with:: patient Medications Home Medications and Allergies Home Medications ?Medication ?Instructions ?Recorded ?Confirmed ?Type ergocalciferol (vitamin D2) 1,250 50,000 unit PO QWEEK #0 caps 11/17/13 11/30/24 History mcg (50,000 unit) capsule (Vitamin D2) omega-3 fatty acids 1,000 mg 1 cap PO DAILY ##0 11/17/13 11/30/24 History capsule (Fish Oil Concentrate) albuterol sulfate 90 mcg/actuation 2 puff inhalation QID PRN sob 08/01/19 11/30/24 History aerosol inhaler (Ventolin HFA) alendronate 70 mg tablet (Fosamax) 70 mg PO QWEEK 08/01/19 11/30/24 History hydralazine 25 mg tablet 25 mg PO TID 08/01/19 11/30/24 History losartan 50 mg tablet 50 mg PO QDAY 08/01/19 11/30/24 History multivitamin-ferrous 1 tab PO QDAY 08/01/19 11/30/24 History fumarate-folic acid 18 mg-400 mcg tablet (Centrum) prednisone 20 mg tablet 20 mg PO DAILY 08/01/19 11/30/24 History calcium ER 600 mg (as carb,cit)-D3 1 tab PO BID 08/13/19 11/30/24 History 12.5 mcg (500 unit) tablet, ext.rel (Citracal-D3 Slow Release) omeprazole 40 mg capsule,delayed 40 mg PO DAILY 08/13/19 11/30/24 History release atorvastatin 40 mg tablet 40 mg PO QDAY 08/15/19 11/30/24 History prednisone 10 mg tablet 10 mg PO HS 09/02/19 11/30/24 History acetaminophen 500 mg capsule 1,000 mg PO Q6H PRN Pain 09/04/19 11/30/24 History calcitriol 0.25 mcg capsule 0.25 mcg PO QDAY 11/30/24 11/30/24 History metoprolol tartrate 25 mg tablet mg 11/30/24 History pantoprazole 40 mg tablet,delayed mg PO 11/30/24 History release Allergies Allergy/AdvReac Type Severity Reaction Status Date / Time shrimp Allergy Severe Wheezing Verified 09/02/19 08:54 NSAIDS (Non-Steroidal Allergy Intermediate Swelling Verified 08/13/19 09:41 Anti-Inflamma Penicillins Allergy Intermediate Rash Verified 08/13/19 09:41 Visit Medications Acetaminophen (Acetaminophen 325 Mg Tablet) 650 mg PO Q6H PRN PRN Reason: Fever >100.5 and mild pain 1-3 Stop: 12/29/24 21:27 Albuterol/Ipratropium (Albuterol/Ipratropium (Duoneb) Rt Annika 3 Ml Nebu) 3 ml INH Q6HRRT SABRINA Stop: 12/30/24 00:59 Last Admin: 11/30/24 06:22 Dose: 3 ml Budesonide (Budesonide Rt 0.25 Mg/2 Ml Nebu) 0.25 mg INH BIDRT SABRINA Stop: 12/29/24 21:44 Last Admin: 11/30/24 06:22 Dose: 0.25 mg Hydromorphone HCl (Hydromorphone Inj 2 Mg/Ml Vial) 0.5 mg IVP Q3H PRN PRN Reason: Pain 7-10 Stop: 12/04/24 21:32 Last Admin: 11/30/24 08:12 Dose: 0.5 mg Sodium Chloride (Ns) 1,000 mls @ 40 mls/hr IV .Q24H [facility] Stop: 12/29/24 21:36 Last Admin: 11/29/24 22:24 Dose: 40 mls/hr Magnesium Sulfate (Magnesium Sulfate Ivpb) 4 gm in 50 mls @ 12.5 mls/hr IV X1 ONE Stop: 11/30/24 13:03 Labetalol HCl (Labetalol Inj 5 Mg/Ml Vial 20 Ml) 10 mg IVP Q3H PRN PRN Reason: SBP >180mmHg Stop: 12/29/24 21:41 Metoprolol Tartrate (Metoprolol Tartrate 25 Mg Tablet) 12.5 mg PO BID [facility] Stop: 12/29/24 21:44 Last Admin: 11/30/24 08:09 Dose: 12.5 mg Ondansetron HCl (Ondansetron Inj 2 Mg/Ml Inj 2 Ml) 4 mg IV Q6H PRN; Protocol PRN Reason: NAUSEA OR VOMITING Stop: 12/29/24 21:32 Last Admin: 11/29/24 22:09 Dose: 4 mg Oxycodone/Acetaminophen (Oxycodone/Apap 5/325 Tablet) 1 tab PO Q6H PRN PRN Reason: PAIN SCALE 4-6 (Moderate Stop: 12/04/24 21:32 Pantoprazole Sodium (Pantoprazole 40 Mg Tablet) 40 mg PO QDAY [facility] Stop: 12/30/24 08:59 Last Admin: 11/30/24 08:09 Dose: 40 mg Pharmacy Consult (Pharmacy Renal Dose Adjustment 1 Ea) 1 each XX PRN PRN PRN Reason: CONSULT Stop: 12/29/24 21:46 Discontinued Medications Cyclobenzaprine HCl (Cyclobenzaprine 5 Mg Tablet) 2.5 mg PO X1 ONE Stop: 11/29/24 21:48 Last Admin: 11/29/24 22:07 Dose: 2.5 mg Fentanyl Citrate (Fentanyl Cit Inj 50 Mcg/Ml Amp 2ml) 50 mcg IV X1 ONE Stop: 11/29/24 17:27 Last Admin: 11/29/24 17:49 Dose: 50 mcg Fentanyl Citrate (Fentanyl Cit Inj 50 Mcg/Ml Amp 2ml) 50 mcg IV X1 ONE Stop: 11/29/24 18:12 Last Admin: 11/29/24 18:18 Dose: 50 mcg Sodium Chloride (Ns) 1,000 mls @ 85 mls/hr IV .[id number] SABRINA Stop: 12/29/24 17:27 Last Infusion: 11/29/24 22:24 Dose: 0 mls/hr Labetalol HCl (Labetalol Inj 5 Mg/Ml Vial 20 Ml) 10 mg IVP Q3H PRN PRN Reason: SBP >180mmHg Stop: 12/29/24 21:41 Morphine Sulfate (Morphine Sulf Inj 10 Mg/Ml Vial) 4 mg IVP X1 ONE Stop: 11/29/24 18:27 Last Admin: 11/29/24 19:23 Dose: Not Given Morphine Sulfate (Morphine Sulf Inj 10 Mg/Ml Vial) 2 mg IVP X1 ONE Stop: 11/29/24 18:29 Last Admin: 11/29/24 19:20 Dose: 2 mg Ondansetron HCl (Ondansetron Inj 2 Mg/Ml Inj 2 Ml) 4 mg IV X1 ONE; Protocol Stop: 11/29/24 17:27 Last Admin: 11/29/24 17:47 Dose: 4 mg Assessment & Plan Plan Assessment and plan: Summary: Ms. Lee is a 84-year-old female with past medical history of diastolic heart failure, hyperlipidemia, hypertension, end-stage renal disease on peritoneal dialysis, CVA 15 years ago, asthma and osteoarthritis who presented to [facility] emergency department on 11/29/2024 with a chief complaint of status post mechanical fall. #Preoperative cardiac risk assessment #Diastolic heart failure, EF 60%, 2019, NHYA class III Patient presented status post ground-level mechanical fall, has right hip and right shoulder fracture, orthopedics consulted for cardiology clearance. Patient denied any dizziness, presyncope, loss of consciousness and mentions that she remembers the incident clearly. Patient does have murmur in aortic area, mitral area. Otherwise patient is on peritoneal dialysis, does have history of diastolic heart failure, was admitted to the hospital previously for CHF exacerbation. Patient does have shortness of breath on mild exertion, independent ADLs, walks using a walker at baseline, does have shortness of breath on activities of daily living, reports is able to walk about 50-60 steps without shortness of breath. Patient METS less than 4, RCRI Score 2 points, 10.1% risk of major cardiac event Patient is high risk for surgery, pending echocardiogram Echo 2019: Normal left ventricular size and function.Approximate ejection fraction is 60%. Mild to moderate aortic regurgitation with mild aortic stenosis. Moderate mitral regurgitation with mild posterior MAC. Moderate tricuspid regurgitation Mild PHTN. Recommendations: -Patient is high risk for surgery, cleared for surgery. -Will follow echocardiogram -Patient is euvolemic currently, continue peritoneal dialysis. -Will need close outpatient follow-up, follow-up in clinic 1 to 2 weeks after discharge #Status post ground-level mechanical fall #Right Hip Fracture (Acute impacted right subcapital fracture) #Right Shoulder Fracture (Acute humeral head and neck fracture) Patient presented status post ground-level mechanical fall, has right hip and right shoulder fracture, orthopedics consulted for cardiology clearance. Patient denied any dizziness, presyncope, loss of consciousness and mentions that she remembers the incident clearly. Humerus x-ray shows acute fractures humeral head and neck (comminuted fracture and humeral head through greater tuberosity) Shoulder x-ray acute fracture of humeral head and neck Pelvis CT shows acute impacted right subcapital hip fracture -Orthopedic surgery consulted following case #Hyperlipidemia Follow lipid panel #Hypertension Patient on metoprolol tartrate at home for blood pressure management, resumed by primary team #Asthma On DuoNeb breathing treatment, resumed budesonide #End-stage renal disease on peritoneal dialysis Nephrology consult following patient closely #History of CVA, 15 years ago #Osteoarthritis Thank you for the consult and allowing to participate in the care of the patient. Cardiology will continue to follow. Case discussed with Attending Dr. Olivares. Misha Mcgowan PGY1 Disclaimer: This note was dictated by speech recognition. Minor errors in security screener may be present due to voice recognition software. Attending Provider Attestation/Addendum I have personally seen and examined the patient separately on the above date of service and discussed the plan of care with the resident. I reviewed the resident Dr. Misha Mcgowan consultation progress note and agree with the resident findings and plan in the note above and have also edited the documentation to reflect my findings and plan. Mrs. 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 Patient was apparently using a walker at home and was trying to get on to her slippers and fell down. Mechanical fall and no evidence of any syncope or dizziness prior to the fall. Patient fell to her right side and then hurt her right hip as well as her right shoulder. Otherwise denies any chest pain chest pressure or leg swelling or PAD or palpitations dizziness or lightheadedness or syncope. Patient does complain of shortness of breath even with walking up to 50-60 steps at home. She walks with the help of walker and able to move around the house but cannot walk much outside. The shortness of breath has been worsening over the last year or so. Patient denies any other previous cardiac history and other cardiac procedures and she did not have any major surgeries except for dental procedures as well as some peritoneal dialysis catheter placement. She did not have any other orthopedic surgeries to she does complain of some pain in her joints. Patient is mildly dependent on the ADLs but completely dependent on IADLs. Lives in [facility] partly and along with her son in [place] and her daughter and Dr. Patel here in [place]. Patient has been followed up with sales service executive in [facility] and also in [place] and was told that she had valve leakage which patient is unsure at the present point of time we did tease any valvular stenosis or tight valve. Orthopedic surgery requested cardiology consultation for further preoperative cardiac risk evaluation. Assessment and plan: 1. Preoperative cardiac risk evaluation 2. Status post mechanical fall 3. Right hip fracture and acute impacted right subcapital fracture 4. Acute humeral head and neck fracture 5. Antonia's granulomatosis diagnosed 25 years ago 6. End-stage renal disease on peritoneal dialysis secondary to Antonia's for the past 3 to 4 years 7. 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 Diastolic congestive heart failure 9. HTN 10. chronic asthma on inhalers, hyperlipidemia, osteoarthritis, osteoporosis, GERD Patient scheduled for surgery for acute impacted right subcapital fracture of the right femoral neck which is intermediate risk surgery. Will require general anesthesia for the procedure. Baseline functional status presently since recent injury is less than 4 METS Patient does not have any unstable or active arrhythmias. Patient does not have any history of any CAD does not have any acute ischemic heart disease symptoms or signs at the present point of time.? Patient does not have any history of diastoic heart failure and is not in overt heart failure at the present point of time No history of any diabetes mellitus requiring insulin Patient does have history of ESRD on PD with baseline creatinine greater than 2. Patient also has history of stroke with remote more than 15 years. As noted above, patient does not have any active cardiac conditions and his RCRI risk score is 0 with with a low risk of 3.9% risk of major adverse cardiac events EKG done today showed NSR with acute ST-T changes history of ischemia. Echocardiogram performed 11/30/2024 showed Normal LV size and function. EF 55-60%. Diastolic dysfunction present but cannot be graded. Normal RV size and function. Estimated RVSP moderately elevated RVSP 55 mm hg. Moderate to Severe . AV vmax 3.8 m/s, Mean PG 38 mm hg. LATRICE 0.5 sq cm. Severe posterior mac AND moderate anterior MAC with mild mitral stenosis mean PG 5 mm hg. Moderate to sevre MR. moderate TR and mild to moderate AI. As noted above patient has moderate to severe aortic stenosis with a valve area of 0.5 cm? by the V-max is only 3.8 m/s and mean PG 38 mmHg along with a history of moderate PAH, mild mitral stenosis, moderate to severe MR, moderate TR which makes her high risk for the above surgery but not a primary diuresis as patient does not have critical aortic stenosis and the V-max is still 4 m/s with normal LVEF. Her overall EF is normal at 55 to 60% with normal RV function RVSP is only estimated to be in moderately increased at 55 mmHg. Discussed with orthopedic surgeon Dr. Ramirez as well as the anesthesiologist Dr. Mendes and the patient's daughter Dr. Patel about the high cardiac risk for the surgery and the she will need further evaluation of her valvular heart disease but cannot be done in emergently as she is not a surgical AVR candidate and will need complete evaluation for TAVR as outpatient, The patient needs an orthopedic surgery which is considered urgent and emergent for her at present point of time -should proceed with surgery as long as the patient, family as well as the surgeon agreed that she is at high risk of the surgery with higher incidence of complications given her age and comorbidities including end-stage renal disease and heart disease, diastolic heart failure Reviewed all vital signs and labs which appears to be stable except for mildly elevated blood pressures which is most likely secondary to the pain from the fracture. Recommend to proceed to the surgery without any further cardiac work-up. Recommend to avoid severe hypoxemia or hypercapnia or acidosis or hypothermia during the procedure. Recommend goal-directed fluid and volume therapy with hemodynamic monitoring intraoperatively given her history of severe . Recommend euvolemia as both hypovolemic and hypervolemic states should be avoided for the patient intraoperatively. Fall is mechanical and no evidence of any prodromal symptoms or any dizziness or syncope. Management of rest of the medical conditions as per primary team and other consultants. Thank you for the consult and allowing me to participate in the care of the patient. Cardiology will continue to follow. Jori Olivares M.D. Interventional Cardiology
[2024-11-30] MEDS: Magnesium Sulfate 4 GM Ivpb 4 GM/50 ML BAG IV (10:15)
[2024-11-30 10:50] LABS: Hemoglobin 8.6 g/dL (12.0-16.0)
[2024-11-30] MEDS: SEVELAMER CARBONATE 800 MG TABLET PO ×2 (12:24→17:51)
--- NOTE | 2024-11-30 13:10 | PD.RESCONSUL ---
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 Patient [place] been in [place] for about month and half visiting family. She stated that while trying to get up from [employer], she lost her balance and fell on her right side. Patient denies any dizziness, no history of recurrent falls. No major trauma to head. Family arrived to assist patient up. Patient reports severe pain in hip and shoulder with minor movement. Work up in ED confirmed fractures of the right humeral head and neck. CT demonstrated an acute impacted right subcapital hip fracture. Hb 9.3, sodium 130, potassium 3.6, Cr 7, GFR 5. Nephrology consulted for ESRD. PMH: as above Social: denies drinking, smoking, lives in [place] Allergies: shrimp, NSAIDS, penicillin Meds: albuterol, alendronate, atorvastatin, calcitriol, calcium carb, Plavix, hydralazine, losartan, omeprazole (med rec pending) cc:: cc: Joseph Hernandez MD Review of Systems Review of Systems Systems Reviewed: All systems reviewed, normal except as documented Exam Vital Signs Temp Pulse Resp BP Pulse Ox O2 Del Method O2 Flow Rate 97.0 F 89 18 130/68 99 Nasal Cannula 1 11/30/24 12:11/30/24 12:11/30/24 12:11/30/24 12:11/30/24 12:11/30/24 12:11/30/24 12:00 Narrative Exam GEN: AOx3, able to speak full sentences however patient was in pain, HEENT: NC/AC, oral mucosa moist, neck supple CVS: RRR, S1-S2 present, no murmurs appreciated RESP: CTAB GI: soft,non distended, non tender, NBS MSK: Right shoulder and right hip has limited mobility, severe tenderness, right arm sling SKIN: warm and dry 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 Results Labs 11/30/24 07:05 11/30/24 04:46 Labs: Short CBC 11/29/24 11/30/24 Range/Units 17:47 07:05 WBC 16.1 H 16.1 H (3.6-11.0) Thou/mm3 Hgb 9.3 L 8.6 L (12.0-16.0) g/dL Hct 27.2 L 25.5 L (36.0-46.0) % Plt Count 390 341 D (140-440) Thou/mm3 BMP 11/29/24 11/30/24 17:47 04:46 Sodium 133 L 133 L Potassium 3.6 4.4 D Chloride 93 L 94 L Carbon Dioxide 23.6 23.5 BUN 28 H 31 H Creatinine 7.0 H* 7.6 H* D Glucose 113 H 124 H Calcium 9.0 9.0 Cardiac Enzymes 11/29/24 Range/Units 17:47 Troponin I 0.039 (0.0-0.045) ng/mL Liver Function 11/29/24 11/30/24 Range/Units 17:47 04:46 Total Bilirubin 0.3 0.3 (0.3-1.2) mg/dL AST 48 H 37 H (0-34) U/L ALT 58 H 51 H (10-49) U/L Alkaline Phosphatase 83 90 (46-116) U/L Albumin 3.5 3.6 (3.4-4.8) gm/dL Quality Measures Quality Measures none Advance care planning discussed with:: other Medications Home Medications and Allergies Home Medications ?Medication ?Instructions ?Recorded ?Confirmed ?Type ergocalciferol (vitamin D2) 1,250 50,000 unit PO QWEEK #0 caps 11/17/13 11/30/24 History mcg (50,000 unit) capsule (Vitamin D2) omega-3 fatty acids 1,000 mg 1 cap PO DAILY ##0 11/17/13 11/30/24 History capsule (Fish Oil Concentrate) albuterol sulfate 90 mcg/actuation 2 puff inhalation QID PRN sob 08/01/19 11/30/24 History aerosol inhaler (Ventolin HFA) alendronate 70 mg tablet (Fosamax) 70 mg PO QWEEK 08/01/19 11/30/24 History hydralazine 25 mg tablet 25 mg PO TID 08/01/19 11/30/24 History losartan 50 mg tablet 50 mg PO QDAY 08/01/19 11/30/24 History multivitamin-ferrous 1 tab PO QDAY 08/01/19 11/30/24 History fumarate-folic acid 18 mg-400 mcg tablet (Centrum) prednisone 20 mg tablet 20 mg PO DAILY 08/01/19 11/30/24 History calcium ER 600 mg (as carb,cit)-D3 1 tab PO BID 08/13/19 11/30/24 History 12.5 mcg (500 unit) tablet, ext.rel (Citracal-D3 Slow Release) omeprazole 40 mg capsule,delayed 40 mg PO DAILY 08/13/19 11/30/24 History release atorvastatin 40 mg tablet 40 mg PO QDAY 08/15/19 11/30/24 History prednisone 10 mg tablet 10 mg PO HS 09/02/19 11/30/24 History acetaminophen 500 mg capsule 1,000 mg PO Q6H PRN Pain 09/04/19 11/30/24 History calcitriol 0.25 mcg capsule 0.25 mcg PO QDAY 11/30/24 11/30/24 History metoprolol tartrate 25 mg tablet mg 11/30/24 History pantoprazole 40 mg tablet,delayed mg PO 11/30/24 History release Allergies Allergy/AdvReac Type Severity Reaction Status Date / Time shrimp Allergy Severe Wheezing Verified 09/02/19 08:54 NSAIDS (Non-Steroidal Allergy Intermediate Swelling Verified 08/13/19 09:41 Anti-Inflamma Penicillins Allergy Intermediate Rash Verified 08/13/19 09:41 Visit Medications Acetaminophen (Acetaminophen 325 Mg Tablet) 650 mg PO Q6H PRN PRN Reason: Fever >100.5 and mild pain 1-3 Stop: 12/29/24 21:27 Albuterol/Ipratropium (Albuterol/Ipratropium (Duoneb) Rt Annika 3 Ml Nebu) 3 ml INH Q6HRRT [facility] Stop: 12/30/24 00:59 Last Admin: 11/30/24 12:21 Dose: 3 ml Budesonide (Budesonide Rt 0.25 Mg/2 Ml Nebu) 0.25 mg INH BIDRT SABRINA Stop: 12/29/24 21:44 Last Admin: 11/30/24 06:22 Dose: 0.25 mg Hydromorphone HCl (Hydromorphone Inj 2 Mg/Ml Vial) 0.5 mg IVP Q3H PRN PRN Reason: Pain 7-10 Stop: 12/04/24 21:32 Last Admin: 11/30/24 08:12 Dose: 0.5 mg Sodium Chloride (Ns) 1,000 mls @ 40 mls/hr IV .Q24H [facility] Stop: 12/29/24 21:36 Last Admin: 11/29/24 22:24 Dose: 40 mls/hr Labetalol HCl (Labetalol Inj 5 Mg/Ml Vial 20 Ml) 10 mg IVP Q3H PRN PRN Reason: SBP >180mmHg Stop: 12/29/24 21:41 Lidocaine (Lidocaine 5% 1 Patch) 1 patch TOP UD PRN; Protocol PRN Reason: PAIN Stop: 12/31/24 08:59 Metoprolol Tartrate (Metoprolol Tartrate 25 Mg Tablet) 12.5 mg PO BID [facility] Stop: 12/29/24 21:44 Last Admin: 11/30/24 08:09 Dose: 12.5 mg Ondansetron HCl (Ondansetron Inj 2 Mg/Ml Inj 2 Ml) 4 mg IV Q6H PRN; Protocol PRN Reason: NAUSEA OR VOMITING Stop: 12/29/24 21:32 Last Admin: 11/29/24 22:09 Dose: 4 mg Oxycodone/Acetaminophen (Oxycodone/Apap 5/325 Tablet) 1 tab PO Q6H PRN PRN Reason: PAIN SCALE 4-6 (Moderate Stop: 12/04/24 21:32 Pantoprazole Sodium (Pantoprazole 40 Mg Tablet) 40 mg PO QDAY [facility] Stop: 12/30/24 08:59 Last Admin: 11/30/24 08:09 Dose: 40 mg Pharmacy Consult (Pharmacy Renal Dose Adjustment 1 Ea) 1 each XX PRN PRN PRN Reason: CONSULT Stop: 12/29/24 21:46 Sevelamer Carbonate (Sevelamer Carbonate 800 Mg Tablet) 800 mg PO TIDWM [facility] Stop: 12/30/24 17:29 Discontinued Medications Cyclobenzaprine HCl (Cyclobenzaprine 5 Mg Tablet) 2.5 mg PO X1 ONE Stop: 11/29/24 21:48 Last Admin: 11/29/24 22:07 Dose: 2.5 mg Fentanyl Citrate (Fentanyl Cit Inj 50 Mcg/Ml Amp 2ml) 50 mcg IV X1 ONE Stop: 11/29/24 17:27 Last Admin: 11/29/24 17:49 Dose: 50 mcg Fentanyl Citrate (Fentanyl Cit Inj 50 Mcg/Ml Amp 2ml) 50 mcg IV X1 ONE Stop: 11/29/24 18:12 Last Admin: 11/29/24 18:18 Dose: 50 mcg Sodium Chloride (Ns) 1,000 mls @ 85 mls/hr IV .[id number] SABRINA Stop: 12/29/24 17:27 Last Infusion: 11/29/24 22:24 Dose: 0 mls/hr Magnesium Sulfate (Magnesium Sulfate Ivpb) 4 gm in 50 mls @ 12.5 mls/hr IV X1 ONE Stop: 11/30/24 13:03 Last Admin: 11/30/24 10:15 Dose: 12.5 mls/hr Labetalol HCl (Labetalol Inj 5 Mg/Ml Vial 20 Ml) 10 mg IVP Q3H PRN PRN Reason: SBP >180mmHg Stop: 12/29/24 21:41 Lidocaine (Lidocaine 5% 1 Patch) 1 patch TOP X1 ONE Stop: 11/30/24 11:03 Morphine Sulfate (Morphine Sulf Inj 10 Mg/Ml Vial) 4 mg IVP X1 ONE Stop: 11/29/24 18:27 Last Admin: 11/29/24 19:23 Dose: Not Given Morphine Sulfate (Morphine Sulf Inj 10 Mg/Ml Vial) 2 mg IVP X1 ONE Stop: 11/29/24 18:29 Last Admin: 11/29/24 19:20 Dose: 2 mg Ondansetron HCl (Ondansetron Inj 2 Mg/Ml Inj 2 Ml) 4 mg IV X1 ONE; Protocol Stop: 11/29/24 17:27 Last Admin: 11/29/24 17:47 Dose: 4 mg Sevelamer Carbonate (Sevelamer Carbonate 800 Mg Tablet) 800 mg PO X1 ONE Stop: 11/30/24 10:04 Last Admin: 11/30/24 12:24 Dose: 800 mg Assessment & Plan Plan Tho Lee is 84 yr female with PMH of hypertension, ESRD on peritoneal dialysis, hyperlipidemia, previous stroke, asthma, suspected diastolic dysfunction with ejection fraction 60%, 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 Nephrology consulted for ESRD. #ESRD on Peritoneal Dialysis ESRD on peritoneal dialysis since past ~ 3?4 years. Admission labs Cr 7, BUN 28, GFR 5, Na 130, K 3., Po4 6.3.. 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 -sevelemer 800mg TID -plan for peritoneal dialysis session tonight - Monitor electrolytes and volume status - Avoid nephrotoxic medications; dose-adjust meds as needed -dilaudid for pain control #Right Hip Fracture (Acute impacted right subcapital fracture) #Right Shoulder Fracture (Acute humeral head and neck fracture) #Hypertension #Anemia #Leukocytosis most likely reactive The patient's management plan was discussed with my attending physician Dr. Amezcua. Edna Hsu, PGY-1 Attending Provider Attestation/Addendum Pt seen and examined. Labs and radiology reviewed. Agree with assessment and plan and findings by resident. Temo Amezcua MD
--- NOTE | 2024-11-30 14:38 | PC.SS ---
Addendum entered by TASNEEM Ruiz 11/30/24 14:40: Rounding note: patient scheduled for surgery tomorrow. Pending cardiology consult. Original Note: Late entry: attempted to complete initial assessment. Left a voicemail for patient's daughter requesting call back.
--- NOTE | 2024-11-30 16:43 | PC.SS ---
Addendum entered by Jo Junior 12/06/24 12:46: SS Original Note: Initial assessment: this is 84 year old female admitted for hip fracture. Patient resides with her daughter, Ame. Patient uses a walker to assist with ambulation. Patient followed by Dr. Amezcua. Patient comes from out of [facility] and has insurance in different county.. Patient's daughter is requesting SNF placement for the patient. Primarily in the [facility], not [place]. Patient's daughter informs no history of mental health or psych medications being taken by the patient. Discharge plan is SNF. D/c plan: SNF Next of kin: daughterAme
--- NOTE | 2024-11-30 16:50 | PD.RESPRO ---
Documentation for date of: 11/30/24 Subjective Subjective Interval history: Patient seen and examined this morning. Admitted overnight for right hip fracture and right shoulder fracture, pending cardiac clearance for surgical repair with ortho. She is having severe pain in right hip that is responsive to dilaudid. Her back is also aching, will try lidocaine patch for that. Vitals stable, chem panel consistent with ESRD. Appreciate nephro recommendations. Exam Vital Signs Temp Pulse Resp BP Pulse Ox O2 Del Method O2 Flow Rate 97.0 F 81 18 130/68 99 Nasal Cannula 1 11/30/24 12:00 11/30/24 16:45 11/30/24 12:24 11/30/24 12:00 11/30/24 12:24 11/30/24 12:00 11/30/24 12:00 Narrative Exam Gen: AAOx3, in significant distress due to pain HEENT: NCAT, PERRLA, EOMI, MMM, no LAD appreciated CVS: normal S1, S2. RRR. Systolic murmur at R 2nd ICS Resp: CTA B/L. No rhonchi, rales, crackles or wheezing Abd: soft, non-tender, non-distended. BS+ in all 4 quadrants MSK: Dec ROM in R extremities; R leg TTP at hip; R arm in sling Neuro: CN II-XII grossly intact but not formally tested Objective Labs 12/01/24 07:10 12/01/24 07:10 Labs: Laboratory Results - last 24 hr 11/29/24 11/30/24 11/30/24 17:47 04:46 07:05 WBC 16.1 H 16.1 H RBC 3.03 L 2.80 L Hgb 9.3 L 8.6 L Hct 27.2 L 25.5 L MCV 90 91 MCH 30.7 30.7 MCHC 34.2 33.7 RDW Std Deviation 48.1 H 49.1 H Plt Count 390 341 D Neut % (Auto) 76 87 H Lymph % (Auto) 16 8 L [place] % (Auto) 6 4 Eos % (Auto) 1 0 Baso % (Auto) 0 0 Neut # (Auto) 12.2 H 14.0 H Lymph # (Auto) 2.5 1.3 [place] # (Auto) 1.0 H 0.7 Eos # (Auto) 0.2 0.0 Baso # (Auto) 0.1 0.0 Immature Gran # (Auto) 0.11 H 0.08 H Absolute Nucleated RBC 0.00 0.00 Immature Gran % 1 H 1 H Nucleated RBC % 0 0 PT 11.1 INR 1.0 APTT 28.7 Sodium 133 L 133 L Potassium 3.6 4.4 D Chloride 93 L 94 L Carbon Dioxide 23.6 23.5 Anion Gap 16 16 BUN 28 H 31 H Creatinine 7.0 H* 7.6 H* D Estim Creat Clear Calc 4.2 L 4.3 L eGFR 5 L* 5 L* BUN/Creatinine Ratio 4 L 4 L Glucose 113 H 124 H Calculated Osmolality 272 L 273 L Calcium 9.0 9.0 Corrected Calcium 9.4 9.3 Phosphorus 6.3 H Magnesium 1.6 1.7 Total Bilirubin 0.3 0.3 AST 48 H 37 H ALT 58 H 51 H Alkaline Phosphatase 83 90 Lactate Dehydrogenase 291 H Troponin I 0.039 B-Natriuretic Peptide 653 H* Total Protein 6.4 6.5 Albumin 3.5 3.6 Globulin 2.9 2.9 Albumin/Globulin Ratio 1.2 1.2 Procalcitonin 0.31 TSH 0.41 L Hepatitis A IgM Ab Non Reactive Hep Bs Antigen Non Reactive Hep Bs Antibody NonReact(Not Immune) L Hep B Core IgM Ab Non Reactive Hepatitis C Antibody Non Reactive Blood Type Antibody Screen Crossmatch Blood Bank Wristband ID 11/30/24 14:55 WBC RBC Hgb Hct MCV MCH MCHC RDW Std Deviation Plt Count Neut % (Auto) Lymph % (Auto) [place] % (Auto) Eos % (Auto) Baso % (Auto) Neut # (Auto) Lymph # (Auto) [place] # (Auto) Eos # (Auto) Baso # (Auto) Immature Gran # (Auto) Absolute Nucleated RBC Immature Gran % Nucleated RBC % PT INR APTT Sodium Potassium Chloride Carbon Dioxide Anion Gap BUN Creatinine Estim Creat Clear Calc eGFR BUN/Creatinine Ratio Glucose Calculated Osmolality Calcium Corrected Calcium Phosphorus Magnesium Total Bilirubin AST ALT Alkaline Phosphatase Lactate Dehydrogenase Troponin I B-Natriuretic Peptide Total Protein Albumin Globulin Albumin/Globulin Ratio Procalcitonin TSH Hepatitis A IgM Ab Hep Bs Antigen Hep Bs Antibody Hep B Core IgM Ab Hepatitis C Antibody Blood Type AB Positive Antibody Screen POSITIVE Crossmatch See Detail Blood Bank Wristband ID Yes Quality Measures Quality Measures VTE prophylaxis (SCDs) Advance care planning discussed with:: patient Assessment & Plan Assessment Current Active Medications: Generic Name Dose Route Start Last Admin Trade Name Koleq PRN Reason Stop Dose Admin Acetaminophen 650 mg 11/29/24 21:28 Acetaminophen 325 Mg Tablet PO 12/29/24 21:27 Q6H PRN Fever >100.5 and mild pain 1-3 Albuterol/Ipratropium 3 ml 11/30/24 01:00 11/30/24 12:21 Albuterol/Ipratropium (Duoneb) Rt Annika 3 Ml Nebu INH 12/30/24 00:59 3 ml Q6HRRT SABRINA Administration Budesonide 0.25 mg 11/29/24 21:45 11/30/24 06:22 Budesonide Rt 0.25 Mg/2 Ml Nebu INH 12/29/24 21:44 0.25 mg BIDRT SABRINA Administration Hydromorphone HCl 0.5 mg 11/29/24 21:33 11/30/24 13:24 Hydromorphone Inj 2 Mg/Ml Vial IVP 12/04/24 21:32 0.5 mg Q3H PRN Administration Pain 7-10 Sodium Chloride 1,000 mls @ 40 mls/hr 11/29/24 21:38 11/29/24 22:24 Ns IV 12/29/24 21:36 40 mls/hr .Q24H SABRINA Administration Labetalol HCl 10 mg 11/29/24 21:46 Labetalol Inj 5 Mg/Ml Vial 20 Ml IVP 12/29/24 21:41 Q3H PRN SBP >180mmHg Lidocaine 1 patch 12/01/24 09:00 Lidocaine 5% 1 Patch TOP 12/31/24 08:59 UD PRN PAIN Protocol Metoprolol Tartrate 12.5 mg 11/29/24 21:45 11/30/24 08:09 Metoprolol Tartrate 25 Mg Tablet PO 12/29/24 21:44 12.5 mg BID SABRINA Administration Ondansetron HCl 4 mg 11/29/24 21:33 11/29/24 22:09 Ondansetron Inj 2 Mg/Ml Inj 2 Ml IV 12/29/24 21:32 4 mg Q6H PRN Administration NAUSEA OR VOMITING Protocol Oxycodone/Acetaminophen 1 tab 11/29/24 21:33 Oxycodone/Apap 5/325 Tablet PO 12/04/24 21:32 Q6H PRN PAIN SCALE 4-6 (Moderate Pantoprazole Sodium 40 mg 11/30/24 09:00 11/30/24 08:09 Pantoprazole 40 Mg Tablet PO 12/30/24 08:59 40 mg QDAY SABRINA Administration Pharmacy Consult 1 each 11/29/24 21:47 Pharmacy Renal Dose Adjustment 1 Ea XX 12/29/24 21:46 PRN PRN CONSULT Sevelamer Carbonate 800 mg 11/30/24 17:30 Sevelamer Carbonate 800 Mg Tablet PO 12/30/24 17:29 TIDWM SABRINA Plan Patient is an 84-year-old female with HTN, HLD, HFpEF (EF 60% in 2019), ESRD on peritoneal dialysis, history of CVA who was admitted after a GLF in which she sustained a right hip fracture and right shoulder fracture. She is pending surgical repair with orthopedics for right hip fracture, and requires cardiac clearance. Nephrology consulted for inpatient peritoneal dialysis. #Right hip fracture #Right shoulder fracture GLF after tripping on her slippers while at daughter's home. No LOC. Patient is visiting from [place]. Head CT was negative for acute pathology. Hip x-ray & pelvis CT revealed acute impacted right subcapital hip fracture Shoulder and humerus x-ray revealed acute fractures of the humeral head and neck Shoulder fracture placed in sling Orthopedics consulted for surgical repair of right hip fracture; n.p.o. at midnight Cardiology consulted for clearance: METS <4, RCRI 2 points Echo: Normal LV & RV size and function. EF 55-60%. Diastolic dysfunction present but cannot be graded. Moderately elevated RVSP 55 mmHg. Moderate to severe aortic stenosis with a V-max 3.8 m/s. Severe posterior MAC and moderate anterior MAC with mild mitral stenosis. Moderate to severe MR. Moderate TR. Mild to moderate AI. Moderately dilated LA LA and mildly dilated RA Pain control with Dilaudid 0.5 mg every 3 hours as needed Percocet 5 every 6 hours as needed PT referral postop Will start DVT prophylaxis postop #HTN #HFpEF (EF 55-60%), not in acute exacerbation SBP fairly normal for patient's age, with pain likely contributing to elevation Continue with pain management Resumed patient's home metoprolol to prevent rebound tachycardia See echo results above Cardiology following, appreciate recs #ESRD on PD Labs consistent with ESRD Nephro consulted, appreciate recommendations: Peritoneal dialysis session tonight Sevelamer 800 mg 3 times daily for hyperphosphatemia Avoid nephrotoxic medications when possible and renally dose medication #History of CVA #HLD Will resume home atorvastatin Dispo: Admitted for surgical repair of right hip fracture; needs inpatient peritoneal dialysis GI PPx: Protonix DVT PPx: SCDs. Will start DVT PPx approximately 6 to 12 hours after surgical procedure Diet: Renal. N.p.o. after midnight CODE STATUS: Full code Patient seen and care discussed with my attending Dr. Hernandez. Leandra Burgess MD PGY-3 Attending Provider Attestation/Addendum I reviewed labs, imaging, EKG, home medications and prior available records. Face to face evaluation was performed by me. I have personally examined the patient and discussed assessment and plan with the IM team. I reviewed the resident note and agree with the plan with exceptions as below. Impacted right subcapital hip fracture ESRD on peritoneal dialysis Essential hypertension Leukocytosis Consulted orthopedic surgery. N.p.o. after midnight 4 OR on 12/01 Management of pain as needed PT evaluation after OR Trend WBC Consulted nephrology for dialysis recommendations Resumed home metoprolol. Monitor BP
--- NOTE | 2024-11-30 17:03 | PC.SS ---
SS follow up: left a voicemail for financial counselor Gloria about reaching out to the family regarding county insurance.
--- NOTE | 2024-11-30 19:19 | ECHO_ITS ---
Transthoracic Echo Report Ht (in): 59 Wt (lb): 122 Exam Location: Portable Status: Inpatient Librarian Specialist: GUNJAN Pryor^^^^ Indications: Procedure Performed: BP: 119 / 78 HR: 92 Rhythm: PACs Technical Quality: Fair MEASUREMENTS (Male / Female) Normal Values 2D ECHO LV Diastolic Diameter PLAX 4.4 cm 4.2 - 5.9 / 3.9 - 5.3 cm LV Systolic Diameter PLAX 3.0 cm IVS Diastolic Thickness 1.0 cm 0.6 - 1.0 / 0.6 - 0.9 cm LVPW Diastolic Thickness 0.8 cm 0.6 - 1.0 / 0.6 - 0.9 cm LV Relative Wall Thickness 0.4 LVOT Diameter 1.4 cm Aortic Root Diameter 2.5 cm LA Systolic Diameter LX 4.4 cm 3.0 - 4.0 / 2.7 - 3.8 cm LA Volume Index 53.7 cm?/m? 16 - 28 cm?/m? Ascending Aorta Diameter 2.6 cm DOPPLER AV Peak Velocity 365.0 cm/s AV Peak Gradient 53.3 mmHg AV Mean Gradient 36.0 mmHg AV Velocity Time Integral 84.6 cm AI Peak Velocity 451.0 cm/s AI Peak Gradient 81.4 mmHg AI Pressure Half Time 301.0 ms LVOT Peak Velocity 99.7 cm/s LVOT Peak Gradient 4.0 mmHg LVOT Velocity Time Integral 22.6 cm LVOT Cardiac Index 2091.3 cm?/min?m? AV Area Cont Eq vti 0.4 cm? AV Area Cont Eq pk 0.4 cm? MV Peak Velocity 155.0 cm/s MV Peak Gradient 9.6 mmHg MV Mean Velocity 119.0 cm/s MV Mean Gradient 6.0 mmHg MV Area PHT 5.5 cm? MR Peak Velocity 646.3 cm/s MR Peak Gradient 167.1 mmHg Mitral E Point Velocity 182.0 cm/s Mitral A Point Velocity 156.0 cm/s Mitral E to A Ratio 1.2 TR Peak Velocity 362.0 cm/s TR Peak Gradient 52.4 mmHg PV Peak Velocity 71.0 cm/s PV Peak Gradient 2.0 mmHg RVOT Peak Velocity 44.3 cm/s FINDINGS Left Ventricle Normal left ventricular size, wall thickness, systolic function with no obvious regional wall motion abnormalities. There is grade III diastolic dysfunction of the left ventricle (restrictive filling pattern). The left ventricular ejection fraction is normal, estimated at 55-60%. Right Ventricle The right ventricle is normal in size and systolic function. The estimated right ventricular systolic pressureis moderately elevated, 53 mmHg. Left Atrium Moderately increased left atrial volume 53.7 mL/m?. Right Atrium The right atrial cavity size is mildly increased. Atrial Septum The interatrial septum appears normal with no evidence of a shunt. Aorta The aorta is normal by two-dimensional, color flow and Doppler interrogation. Mitral Valve Severe mitral regurgitation. Severe thickening of the mitral valve leaflets. Severe mitral annular calcification. Aortic Valve Severe aortic valve stenosis, mean gradient 36 mmHg, LATRICE 0.41 cm?. [id number] aortic valve regurgitation. Tricuspid Valve There is moderate to severe tricuspid valve regurgitation. Pulmonic Valve Trivial pulmonic valve regurgitation. Vessels The pulmonary artery appears normal. The inferior vena cava pulmonary and hepatic veins appear normal. Pericardium The pericardium is normal by two-dimensional imaging. There is no significant pericardial effusion. CONCLUSIONS Indication: Preop cardiac risk assessment Normal LV size and function. EF 55-60%. Diastolic dysfunction present but cannot be graded. Normal RV size and function. Estimated RVSP moderately elevated RVSP 55 mm hg. Moderate to Severe . AV vmax 3.8 m/s, Mean PG 38 mm hg. LATRICE 0.5 sq cm. Severe posterior mac AND moderate anterior MAC with mild mitral stenosis mean PG 5 mm hg. Moderate to sevre MR. moderate TR and mild to moderate AI. Moderately dilated LA and mildly dilated RA. Jori Olivares (Electronically Signed) Final Date: 30 November 2024 16:41
--- NOTE | 2024-11-30 20:13 | XR_ITS ---
Examination: AP chest single view Technique an AP portable upright chest single view Exam date and time: November 30, 2024 at 2027 hours INDICATIONS: Shortness of breath today. FINDINGS: Mild heart failure. Mild enlargement left ventricle Mitral valvular calcification. Prominent vascular congestion. No lobar pneumonia IMPRESSION: Early heart failure Fracture deformity right shoulder, please see the shoulder report November 29, 2024
[2024-11-30] MEDS: ONDANSETRON INJ 2 MG/ML INJ 2 ML 4 MG IV (20:15)
[2024-12-01] VITALS (21 sets, daily range): BP systolic 116–167; BP diastolic 64–101; PULSE 70–112; RESP 15–28; TEMP 36–37; O2SAT 94–100; BMI 24.6
[2024-12-01] MEDS: ALBUTEROL/IPRATROPIUM (Duoneb) RT SOL 3 ML NEBU INH ×3 (00:47→15:45)
--- NOTE | 2024-12-01 03:42 | PC.NURSE ---
Patient's daughter was concerned regarding patient's increase of breathing. Nurse contacted Dr. Logan regarding daughters concern and per Dr. Logan he would come up to come see the patient. Patient's daughter also wanted nurse to contact the corn lab technician due to the dialysis machine beeping and the daughter thinking that the machine is not working. Nurse called charge nurse and have her notified regarding patient's daughter concern. Per charge nurse, nurse would have to call supervisor [place] to contact the religious education teacher corn lab technician regarding the machine. Per house detective, nurse would have to contact the hospitalist in order to contact the corn lab technician. Nurse was able to obtain the dialysis techs contact information and notified corn lab technician regarding the patient's daughter concerns. [employer] tech arrived and checked the machine. residential gas heat technician educated patient's daugther regarding the machine.
[2024-12-01] MEDS: BUDESONIDE RT 0.25 MG/2 ML NEBU INH ×2 (06:36→18:21)
[2024-12-01] MEDS: HYDROmorphone INJ 2 MG/ML VIAL 0.5 MG IVP ×2 (06:43→19:22)
[2024-12-01 07:40] LABS: Basophils % (Auto) 0 % (0-2.5); Eosinophils % (Auto) 0 % (0-10); Hematocrit 23.5 % (36.0-46.0); Immature Granulocytes % (Auto) 1 % (0-0); Immature Granulocytes Auto 0.15 Thou/mm3 (0.00-0.00); Lymphocytes # (Auto) 2.2 Thou/mm3 (1.0-4.8); Lymphocytes % (Auto) 12 % (10-50); Mean Corpuscular HGB Conc 33.6 g/dl (31.0-37.0); Mean Corpuscular Hemoglobin 30.4 pg (25.0-35.0); Mean Corpuscular Volume 90 fL (80-100); Monocytes # (Auto) 1.5 Thou/mm3 (0.0-0.8); Monocytes % (Auto) 8 % (0-12); Neutrophils # (Auto) 14.5 Thou/mm3 (1.8-7.7); Neutrophils % (Auto) 79 % (37-80); Nucleated Red Blood Cell % 0 /100 WBC (0); Platelet Count 365 Thou/mm3 (140-440); RDW Standard Deviation 48.6 fL (36.4-46.3); White Blood Count 18.3 Thou/mm3 (3.6-11.0)
[2024-12-01 07:47] LABS: Hemoglobin 7.9 g/dL (12.0-16.0)
--- NOTE | 2024-12-01 07:58 | PC.NURSE ---
RN called MD to ask if they want the Am PO meds given. Pt is scheduled for surgery today, surgery time is unknown as of now. MD ordered to hold AM meds
[2024-12-01 08:00] LABS: Alanine Aminotransferase 33 U/L (10-49); Albumin, Serum 3.4 gm/dL (3.4-4.8); Albumin/Globulin Ratio 1.2 (1.2-2.2); Alkaline Phosphatase 78 U/L (46-116); Anion Gap 14 (7-16); Aspartate Amino Transferase 23 U/L (0-34); BUN/Creatinine Ratio 5 Ratio (12-20); Bilirubin,Total 0.2 mg/dL (0.3-1.2); Blood Urea Nitrogen 34 mg/dL (9-23); Calcium 9.1 mg/dL (8.3-10.6); Calcium (Corrected) 9.6 mg/dL (8.5-10.1); Carbon Dioxide 24.6 mMol/L (20.0-31.0); Chloride 93 mMol/L (98-107); Creatinine (Component) 7.2 mg/dL (0.6-1.3); Estimated Creatinine Clearance 4.5 mL/min (>60); Globulin 2.8 gm/dL (2.3-3.5); Glucose 122 mg/dL (74-106); Magnesium 2.8 mg/dL (1.6-2.6); Osmolality,Calculated 273 (275-295); Phosphorous 5.6 mg/dL (2.4-5.1); Potassium 3.7 mMol/L (3.4-5.1); Prothrombin Time 11.3 Seconds (9.0-12.2); Sodium 132 mMol/L (136-145); Total Protein 6.2 gm/dL (5.7-8.2); eGFR 5 See Note
[2024-12-01 08:26] LABS: Free T4 (Free Thyroxine) 1.29 ng/dL (0.89-1.76)
--- NOTE | 2024-12-01 08:46 | PD.RESPRO ---
Documentation for date of: 12/01/24 Subjective Subjective Interval history: Patient seen and examined at bedside, vitals and labs reviewed. Patient received dialysis yesterday, is n.p.o. currently. Patient is scheduled for surgery today. Echocardiogram yesterday showed: Normal LV size and function. EF 55-60%. Diastolic dysfunction present but cannot be graded. Normal RV size and function. Estimated RVSP moderately elevated RVSP 55 mm hg. Moderate to Severe . AV vmax 3.8 m/s, Mean PG 38 mm hg. LATRICE 0.5 sq cm. Severe posterior mac AND moderate anterior MAC with mild mitral stenosis mean PG 5 mm hg. Moderate to sevre MR. moderate TR and mild to moderate AI. Moderately dilated LA and mildly dilated RA. Considering patient's moderate to severe aortic stenosis, case was discussed with orthopedics and anesthesia regarding her high risk for surgery. Exam Vital Signs Temp Pulse Resp BP Pulse Ox O2 Del Method O2 Flow Rate 98.1 F 112 H 20 116/76 100 Nasal Cannula 2 12/01/24 04:00 12/01/24 08:00 12/01/24 06:40 12/01/24 04:00 12/01/24 06:40 11/30/24 16:00 11/30/24 19:09 Narrative Exam Physical Exam General: Awake and in no acute distress. Conversational and non-toxic appearing. HEENT: Normocephalic, atraumatic, mucous membranes moist. Heart: Regular rate and rhythm, positive murmur in aortic area, pulmonic area and mitral area. Lungs: Clear to auscultation with no wheezing or crackles. Abdomen: Soft, nondistended, nontender, positive bowel sounds. ?No guarding or rebound tenderness. Neurologic: Alert and oriented x3, no gross neurological deficit, and patient able to move all 4 extremities. Extremities: Right arm in sling, right leg shorter than left, externally rotated. Skin: No rash or ecchymoses. Objective Labs 12/02/24 05:20 12/02/24 05:20 Labs: Laboratory Results - last 24 hr 11/30/24 11/30/24 12/01/24 07:05 14:55 07:10 WBC 18.3 H RBC 2.60 L Hgb 8.6 L 7.9 L Hct 23.5 L MCV 90 MCH 30.4 MCHC 33.6 RDW Std Deviation 48.6 H Plt Count 365 Neut % (Auto) 79 Lymph % (Auto) 12 [place] % (Auto) 8 Eos % (Auto) 0 Baso % (Auto) 0 Neut # (Auto) 14.5 H Lymph # (Auto) 2.2 [place] # (Auto) 1.5 H Eos # (Auto) 0.0 Baso # (Auto) 0.0 Immature Gran # (Auto) 0.15 H Absolute Nucleated RBC 0.00 Immature Gran % 1 H Nucleated RBC % 0 PT 11.3 INR 1.0 Sodium 132 L Potassium 3.7 D Chloride 93 L Carbon Dioxide 24.6 Anion Gap 14 BUN 34 H Creatinine 7.2 H* Estim Creat Clear Calc 4.5 L eGFR 5 L* BUN/Creatinine Ratio 5 L Glucose 122 H Calculated Osmolality 273 L Calcium 9.1 Corrected Calcium 9.6 Phosphorus 5.6 H Magnesium 2.8 H Total Bilirubin 0.2 L AST 23 ALT 33 Alkaline Phosphatase 78 Total Protein 6.2 Albumin 3.4 Globulin 2.8 Albumin/Globulin Ratio 1.2 Free T4 1.29 Hepatitis A IgM Ab Non Reactive Hep Bs Antigen Non Reactive Hep Bs Antibody NonReact(Not Immune) L Hep B Core IgM Ab Non Reactive Hepatitis C Antibody Non Reactive Blood Type AB Positive Antibody Screen NEGATIVE Antibody Identification Cancelled Crossmatch See Detail Blood Bank Wristband ID Yes Quality Measures Quality Measures VTE prophylaxis (SCDs) Advance care planning discussed with:: patient and child Assessment & Plan Assessment Current Active Medications: Generic Name Dose Route Start Last Admin Trade Name Freq PRN Reason Stop Dose Admin Acetaminophen 650 mg 11/29/24 21:28 Acetaminophen 325 Mg Tablet PO 12/29/24 21:27 Q6H PRN Fever >100.5 and mild pain 1-3 Albuterol/Ipratropium 3 ml 11/30/24 01:00 12/01/24 06:36 Albuterol/Ipratropium (Duoneb) Rt Annika 3 Ml Nebu INH 12/30/24 00:59 3 ml Q6HRRT SABRINA Administration Budesonide 0.25 mg 11/29/24 21:45 12/01/24 06:36 Budesonide Rt 0.25 Mg/2 Ml Nebu INH 12/29/24 21:44 0.25 mg BIDRT SABRINA Administration Hydromorphone HCl 0.5 mg 11/29/24 21:33 12/01/24 06:43 Hydromorphone Inj 2 Mg/Ml Vial IVP 12/04/24 21:32 0.5 mg Q3H PRN Administration Pain 7-10 Labetalol HCl 10 mg 11/29/24 21:46 Labetalol Inj 5 Mg/Ml Vial 20 Ml IVP 12/29/24 21:41 Q3H PRN SBP >180mmHg Lidocaine 1 patch 12/01/24 09:00 Lidocaine 5% 1 Patch TOP 12/31/24 08:59 UD PRN PAIN Protocol Metoprolol Tartrate 12.5 mg 11/29/24 21:45 12/01/24 08:05 Metoprolol Tartrate 25 Mg Tablet PO 12/29/24 21:44 Not Given BID [facility] Ondansetron HCl 4 mg 11/29/24 21:33 11/30/24 20:15 Ondansetron Inj 2 Mg/Ml Inj 2 Ml IV 12/29/24 21:32 4 mg Q6H PRN Administration NAUSEA OR VOMITING Protocol Oxycodone/Acetaminophen 1 tab 11/29/24 21:33 Oxycodone/Apap 5/325 Tablet PO 12/04/24 21:32 Q6H PRN PAIN SCALE 4-6 (Moderate Pantoprazole Sodium 40 mg 11/30/24 09:00 12/01/24 08:05 Pantoprazole 40 Mg Tablet PO 12/30/24 08:59 Not Given QDAY [facility] Pharmacy Consult 1 each 11/29/24 21:47 Pharmacy Renal Dose Adjustment 1 Ea XX 12/29/24 21:46 PRN PRN CONSULT Sevelamer Carbonate 800 mg 11/30/24 17:30 12/01/24 08:05 Sevelamer Carbonate 800 Mg Tablet PO 12/30/24 17:29 Not Given TIDWM [facility] Plan Assessment and plan: Summary: Ms. 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 #Preoperative cardiac risk assessment #Diastolic heart failure, EF 60%, 2019, NHYA class III Patient presented status post ground-level mechanical fall, has right hip and right shoulder fracture, orthopedics consulted for cardiology clearance. Patient denied any dizziness, presyncope, loss of consciousness and mentions that she remembers the incident clearly. Patient does have murmur in aortic area, mitral area. Otherwise patient is on peritoneal dialysis, does have history of diastolic heart failure, was admitted to the hospital previously for CHF exacerbation. Patient does have shortness of breath on mild exertion, independent ADLs, walks using a walker at baseline, does have shortness of breath on activities of daily living, reports is able to walk about 50-60 steps without shortness of breath. Patient baseline METS less than 4 per history. EKG showed NSR with acute ST-T changes history of ischemia. Patient does not have any unstable or active arrhythmias. Patient does not have any history of any CAD does not have any acute ischemic heart disease symptoms or signs at the present point of time.? Patient does have history of diastoic heart failure and is not in overt heart failure at the present point of time No history of any diabetes mellitus requiring insulin Patient does have history of ESRD on PD with baseline creatinine greater than 2. Patient also has history of stroke with remote more than 15 years. As noted above, patient does not have any active cardiac conditions and his RCRI risk score is 0 with with a low risk of 3.9% risk of major adverse cardiac events Echo 11/30/2024: Normal LV size and function. EF 55-60%. Diastolic dysfunction present but cannot be graded. Normal RV size and function. Estimated RVSP moderately elevated RVSP 55 mm hg. Moderate to Severe . AV vmax 3.8 m/s, Mean PG 38 mm hg. LATRICE 0.5 sq cm. Severe posterior mac AND moderate anterior MAC with mild mitral stenosis mean PG 5 mm hg. Moderate to sevre MR. moderate TR and mild to moderate AI. Moderately dilated LA and mildly dilated RA. As noted above patient has moderate to severe aortic stenosis with a valve area of 0.5 cm? by the V-max is only 3.8 m/s and mean PG 38 mmHg along with a history of moderate PAH, mild mitral stenosis, moderate to severe MR, moderate TR which makes her high risk for the above surgery but not a primary diuresis as patient does not have critical aortic stenosis and the V-max is still 4 m/s with normal LVEF. Her overall EF is normal at 55 to 60% with normal RV function RVSP is only estimated to be in moderately increased at 55 mmHg. Discussed with orthopedic surgeon Dr. Ramirez as well as the anesthesiologist Dr. Mendes and the patient's daughter Jorge about the high cardiac risk for the surgery and the she will need further evaluation of her valvular heart disease but cannot be done in emergently as she is not a surgical AVR candidate and will need complete evaluation for TAVR as outpatient, The patient needs an orthopedic surgery which is considered urgent and emergent for her at present point of time -should proceed with surgery as long as the patient, family as well as the surgeon agreed that she is at high risk of the surgery with higher incidence of complications given her age and comorbidities including end-stage renal disease and heart disease, diastolic heart failure Recommendations: -Scheduled for surgery later today in afternoon. -Avoid severe hypoxemia or hypercapnia or acidosis or hypothermia during the procedure. -Goal-directed fluid and volume therapy with hemodynamic monitoring intraoperatively given her history of severe , nephrology following, continue dialysis per recs. -Recommend euvolemia as both hypovolemic and hypervolemic states should be avoided for the patient intraoperatively. -Will need close outpatient follow-up, follow-up in clinic 1 to 2 weeks after discharge #Status post ground-level mechanical fall #Right Hip Fracture (Acute impacted right subcapital fracture) #Right Shoulder Fracture (Acute humeral head and neck fracture) Patient presented status post ground-level mechanical fall, has right hip and right shoulder fracture, orthopedics consulted for cardiology clearance. Patient denied any dizziness, presyncope, loss of consciousness and mentions that she remembers the incident clearly. Humerus x-ray shows acute fractures humeral head and neck (comminuted fracture and humeral head through greater tuberosity) Shoulder x-ray acute fracture of humeral head and neck Pelvis CT shows acute impacted right subcapital hip fracture -Orthopedic surgery consulted following case #Hyperlipidemia Follow lipid panel #Hypertension Patient on metoprolol tartrate at home for blood pressure management, resumed by primary team #Asthma On DuoNeb breathing treatment, resumed budesonide #End-stage renal disease on peritoneal dialysis #Donna's Granulomatosis, diagnosed 25 years ago End-stage renal disease on peritoneal dialysis secondary to Antonia's for the past 3 to 4 years Nephrology consult following patient closely #History of CVA, 15 years ago #Osteoarthritis, Osteoporosis #GERD Thank you for the consult and allowing to participate in the care of the patient. Cardiology will continue to follow. Case discussed with Attending Dr. Olivares. Misha Mcgowan PGY1 Disclaimer: This note was dictated by speech recognition. Minor errors in conservation science teacher may be present due to voice recognition software. Attending Provider Attestation/Addendum I have personally seen and examined the patient separately on the above date of service and discussed the plan of care with the resident. I reviewed the resident Dr. Misha Mcgowan consultation progress note and agree with the resident findings and plan in the note above and have also edited the documentation to reflect my findings and plan. Jori Olivares M.D. Interventional Cardiology
--- NOTE | 2024-12-01 11:37 | ESPR_ITS ---
Documentation for date of: 12/01/24 Subjective Subjective Interval history: Patient seen and examined this morning with daughter at bedside. Overnight there was concern for shortness of breath as patient desaturated to 80s and required oxygen. This may have been due to fluid overload state as patient was on IV fluids at 40 cc/h, versus receiving 2 L peritoneal dialysis via cycler, as patient's daughter states they do about 1.5 L at home. Will discuss with nephro. CXR was obtained which does show vascular congestion and decreased lung volumes, possible atelectasis from shallow breathing secondary to pain & positioning. IS ordered, and will encourage to use post-procedure as well. Per daughter, patient had CT chest & labwork (+ANCA) done in [place], and will try to get reports, as SOB has been worsening over several months without relief from ventolin. She is pending surgical repair with Ortho for hip fracture. Right arm remains in sling. Her pain is controlled with dilaudid however it leads to nausea/vomiting; will discuss with RN to give Zofran approximate 30 minutes prior to Dilaudid. Will follow-up with Ortho for further recs, and start diet/AC postprocedure. PT eval ordered. Exam Vital Signs Temp Pulse Resp BP Pulse Ox O2 Del Method O2 Flow Rate 98.4 F 112 H 17 149/64 H 94 L Room Air 2 12/01/24 08:00 12/01/24 08:00 12/01/24 08:00 12/01/24 08:00 12/01/24 08:00 12/01/24 08:00 11/30/24 19:09 Narrative Exam Gen: AAOx3, in significant distress due to pain HEENT: NCAT, PERRLA, EOMI, MMM, no LAD appreciated CVS: normal S1, S2. RRR. Systolic murmur at R 2nd ICS Resp: CTA B/L. No rhonchi, rales, crackles or wheezing Abd: soft, non-tender, non-distended. BS+ in all 4 quadrants MSK: Dec ROM in R extremities; R leg TTP at hip; R arm in sling Neuro: CN II-XII grossly intact but not formally tested Objective Labs 12/02/24 05:20 12/02/24 05:20 Labs: Laboratory Results - last 24 hr 11/30/24 12/01/24 14:55 07:10 WBC 18.3 H RBC 2.60 L Hgb 7.9 L Hct 23.5 L MCV 90 MCH 30.4 MCHC 33.6 RDW Std Deviation 48.6 H Plt Count 365 Neut % (Auto) 79 Lymph % (Auto) 12 [place] % (Auto) 8 Eos % (Auto) 0 Baso % (Auto) 0 Neut # (Auto) 14.5 H Lymph # (Auto) 2.2 [place] # (Auto) 1.5 H Eos # (Auto) 0.0 Baso # (Auto) 0.0 Immature Gran # (Auto) 0.15 H Absolute Nucleated RBC 0.00 Immature Gran % 1 H Nucleated RBC % 0 PT 11.3 INR 1.0 Sodium 132 L Potassium 3.7 D Chloride 93 L Carbon Dioxide 24.6 Anion Gap 14 BUN 34 H Creatinine 7.2 H* Estim Creat Clear Calc 4.5 L eGFR 5 L* BUN/Creatinine Ratio 5 L Glucose 122 H Calculated Osmolality 273 L Calcium 9.1 Corrected Calcium 9.6 Phosphorus 5.6 H Magnesium 2.8 H Total Bilirubin 0.2 L AST 23 ALT 33 Alkaline Phosphatase 78 Total Protein 6.2 Albumin 3.4 Globulin 2.8 Albumin/Globulin Ratio 1.2 Free T4 1.29 Blood Type AB Positive Antibody Screen NEGATIVE Antibody Identification Cancelled Crossmatch See Detail Blood Bank Wristband ID Yes Quality Measures Quality Measures VTE prophylaxis (SCDs) Advance care planning discussed with:: patient and child Assessment & Plan Assessment Current Active Medications: Generic Name Dose Route Start Last Admin Trade Name Freq PRN Reason Stop Dose Admin Acetaminophen 650 mg 11/29/24 21:28 Acetaminophen 325 Mg Tablet PO 12/29/24 21:27 Q6H PRN Fever >100.5 and mild pain 1-3 Albuterol/Ipratropium 3 ml 11/30/24 01:00 12/01/24 06:36 Albuterol/Ipratropium (Duoneb) Rt Annika 3 Ml Nebu INH 12/30/24 00:59 3 ml Q6HRRT SABRINA Administration Budesonide 0.25 mg 11/29/24 21:45 12/01/24 06:36 Budesonide Rt 0.25 Mg/2 Ml Nebu INH 12/29/24 21:44 0.25 mg BIDRT SABRINA Administration Hydromorphone HCl 0.5 mg 11/29/24 21:33 12/01/24 06:43 Hydromorphone Inj 2 Mg/Ml Vial IVP 12/04/24 21:32 0.5 mg Q3H PRN Administration Pain 7-10 Labetalol HCl 10 mg 11/29/24 21:46 Labetalol Inj 5 Mg/Ml Vial 20 Ml IVP 12/29/24 21:41 Q3H PRN SBP >180mmHg Lidocaine 1 patch 12/01/24 09:00 Lidocaine 5% 1 Patch TOP 12/31/24 08:59 UD PRN PAIN Protocol Metoprolol Tartrate 12.5 mg 11/29/24 21:45 12/01/24 08:05 Metoprolol Tartrate 25 Mg Tablet PO 12/29/24 21:44 Not Given BID [facility] Ondansetron HCl 4 mg 11/29/24 21:33 11/30/24 20:15 Ondansetron Inj 2 Mg/Ml Inj 2 Ml IV 12/29/24 21:32 4 mg Q6H PRN Administration NAUSEA OR VOMITING Protocol Oxycodone/Acetaminophen 1 tab 11/29/24 21:33 Oxycodone/Apap 5/325 Tablet PO 12/04/24 21:32 Q6H PRN PAIN SCALE 4-6 (Moderate Pantoprazole Sodium 40 mg 11/30/24 09:00 12/01/24 08:05 Pantoprazole 40 Mg Tablet PO 12/30/24 08:59 Not Given QDAY [facility] Pharmacy Consult 1 each 11/29/24 21:47 Pharmacy Renal Dose Adjustment 1 Ea XX 12/29/24 21:46 PRN PRN CONSULT Sevelamer Carbonate 800 mg 11/30/24 17:30 12/01/24 08:05 Sevelamer Carbonate 800 Mg Tablet PO 12/30/24 17:29 Not Given TIDWM [facility] Plan Patient is an 84-year-old female with HTN, HLD, HFpEF (EF 60% in 2019), ESRD on peritoneal dialysis, history of CVA who was admitted after a GLF in which she sustained a right hip fracture and right shoulder fracture. She is pending surgical repair with orthopedics for right hip fracture, and requires cardiac clearance. Nephrology consulted for inpatient peritoneal dialysis. #Right hip fracture #Right shoulder fracture GLF after tripping on her slippers while at daughter's home. No LOC. Patient is visiting from [place]. Head CT was negative for acute pathology. Hip x-ray & pelvis CT revealed acute impacted right subcapital hip fracture Shoulder and humerus x-ray revealed acute fractures of the humeral head and neck Shoulder fracture placed in sling Orthopedics consulted for surgical repair of right hip fracture Cardiology consulted for clearance: METS <4, RCRI 0 points => high risk surgery with cardiology follow up Echo: Normal LV & RV size and function. EF 55-60%. Diastolic dysfunction present but cannot be graded. Moderately elevated RVSP 55 mmHg. Moderate to severe aortic stenosis with a V-max 3.8 m/s. Severe posterior MAC and moderate anterior MAC with mild mitral stenosis. Moderate to severe MR. Moderate TR. Mild to moderate AI. Moderately dilated LA LA and mildly dilated RA -Pain control with Dilaudid 0.5 mg every 3 hours as needed Percocet 5 every 6 hours as needed; zofran 30mins prior to dilaudid to prevent opioid-associated nausea -PT referral postop -Will start DVT prophylaxis postop #SOB, improved Overnight became SOB, desatted into 80s with improvement on NC and after PD CXR consistent with vascular congestion, mild CHF picture. DDx: Fluid overload state from IV fluids vs 2L PD cycler (family uses 1.5L at home) vs progression of Antonia's CT chest & ANCA+ in [place]; will see if we can get the results via patient portal from patient's son -Will likely need outpatient pulm follow up #HTN #?HFpEF (EF 55-60%), not in acute exacerbation SBP fairly normal for patient's age, with pain likely contributing to elevation Continue with pain management See echo results above Cardiology following, appreciate recs -Resumed patient's home metoprolol to prevent rebound tachycardia; prn labetalol #Aortic stenosis, moderate-severe Murmur appreciated; and seen on echo Cardiology following; maintain euvolemic state Recomend to have cardiology follow up outpatient #ESRD on PD #Antonia's granulomatosis Labs consistent with ESRD Nephro consulted, appreciate recommendations: Peritoneal dialysis session - 1.5L wash via cycler Sevelamer 800 mg 3 times daily for hyperphosphatemia Avoid nephrotoxic medications when possible and renally dose medication #History of CVA #HLD Will resume home atorvastatin Dispo: Admitted for surgical repair of right hip fracture; needs inpatient peritoneal dialysis; likely Home health with PT on discharge when stable GI PPx: Protonix DVT PPx: SCDs. Will start DVT PPx approximately 6 to 12 hours after surgical procedure Diet: NPO for surgical procedure; Renal diet when able to tolerate CODE STATUS: Full code Patient seen and care discussed with my attending Dr. Hernandez. Leandra Burgess MD PGY-3 Attending Provider Attestation/Addendum I reviewed labs, imaging, EKG, home medications and prior available records. Face to face evaluation was performed by me. I have personally examined the patient and discussed assessment and plan with the IM team. I reviewed the resident note and agree with the plan with exceptions as below. Impacted right subcapital hip fracture Right shoulder fracture ESRD on peritoneal dialysis Essential hypertension Leukocytosis Consulted orthopedic surgery. N.p.o. after midnight for OR on 12/01 Management of pain as needed PT evaluation after OR Right shoulder sling. No surgical intervention needed Trend WBC: Downtrending Consulted nephrology for dialysis recommendations: Start peritoneal dialysis Resumed home metoprolol. Monitor BP
--- NOTE | 2024-12-01 12:31 | XR_ITS ---
Examination: Right hip 2 views Fluoroscopy Examination date and time: December 01, 2024 1443 hours INDICATIONS: Acute right subcapital hip fracture November 29, 2024, postop reduction internal fixation hip fracture today TECHNIQUE AND FINDINGS: Operative reduction internal fixation right subcapital hip fracture Satisfactory alignment Orthopedic hardware satisfactory position Fluoroscopy 77 seconds 2 spot fluoroscopic films radiation dose 3.83 milligray IMPRESSION: Operative reduction internal fixation right hip fracture with satisfactory alignment
--- NOTE | 2024-12-01 12:56 | PC.SS ---
SS contacted Gloria the financial counselor patient is establish with medicare. Gloria will follow up with patient's daughter in regards to applying for medical.
--- NOTE | 2024-12-01 14:51 | XR_ITS ---
Examination:Right hip AP, lateral, AP pelvis 3 views Technique: Hip AP lateral, AP pelvis, 3 views Exam date and time:November 23, 2024 1519 hours Comparison November 29, 2024 INDICATIONS: Acute right subcapital hip fracture November 29, 2024, postop reduction internal fixation hip fracture today FINDINGS: Postop reduction internal fixation right subcapital hip fracture Satisfactory alignment Orthopedic hardware satisfactory position IMPRESSION: Postop reduction internal fixation right subcapital hip fracture with satisfactory alignment.
--- NOTE | 2024-12-01 15:02 | PC.SS ---
SS follow up note; SS followed up with patient's daughter, Rosa in regards to SNF choices, she reported that they want to hold off on discharge plan at the time, patient might possibly discharge home with HH. Daughter would like for SS to follow up when it gets closer to discharge. SS will stand by for further needs.
--- NOTE | 2024-12-01 15:19 | PD.SUROPNT ---
Date of Procedure 12/01/24 Pre Op Diagnosis 1.Very minimally displaced subcapital fracture right hip 2. Fracture neck and head of the right humerus Post Op Diagnosis Same Procedure 1. Femoral neck system for right hip fracture. Synthes implant. Size 85 mm with 2 hole plates 2 closed treatment of the fracture of the neck and the head of the right humerus Findings Refer dictation Procedure Description Patient was given a spinal anesthesia. Patient was also given a right shoulder block. Once satisfactory anesthesia achieved patient was put on fracture table. The fracture was checked under C arm in both AP and lateral position and found to be good Part was thoroughly prepped and draped. Intravenous antibiotics was given at the time of anesthesia. Under C-arm guidance a skin incision was made over the lateral aspect of the upper thigh. Deeper dissection was carried out. The tensor fascia ana was incised in the line of his skin incision. The muscle was reflected from the bone. C-arm guidance a guidepin was passed into the neck of the femur up to the subchondral portion of the head of the femur Length of the screw to be used was measured. Decision was made to use size 85 mm long screw. The above size screw was mounted over the plate and then was advanced after drilling the neck of the femur and the subchondral portion of the head of the femur Following that the screw and the plate was mounted over the lateral aspect of the femur. Once satisfactory position was achieved then a guidewire was passed through the anterior rotation hole. The length was measured and another 85 mm long screw was placed. Following that the jig was placed onto the lateral side for the placement of the 2 screws. After drilling appropriate size screws were placed. Position was repeatedly checked under C arm in both AP and lateral Wound was irrigated with antibiotic solution every 4 to 5 minutes Closure was done with the help of 2-0 Vicryl in an interrupted fashion. The skin was closed with kris Patient tolerated procedure well. Estimated blood loss 50 mL Prognosis in this case is fair to good. Further management patient is allowed to be full weight-bear. Anesthesia spinal and other Pathology / specimen None Estimated Blood Loss 50 Surgeon Kian Lee MD Surgical Staff Operation Date: 12/01/24 12:00 Case Staff Anesthesiologist: Vasu Mendes RNit applications developer: Alison Broderick
--- NOTE | 2024-12-01 16:37 | ESCONSULT_ITS ---
RE: WHIT TITUS : 1940 DATE OF CONSULTATION: 11/30/2024 Thank you, for asking me to consult the patient whom I saw on 11/30/2024. HISTORY OF PRESENT ILLNESS: As per history available, the patient fell at home and injured her right side of the body. The patient was unable to get up. The patient called her daughter, who brought her to the emergency room. X-ray of the right hip revealed subcapital fracture of the right hip, which was very, very minimally displaced. The patient also sustained fracture of the neck and head of the humerus. The patient was admitted for further management. PAST MEDICAL HISTORY: The patient has end-stage renal disease and is on peritoneal dialysis. Besides that, the patient has a history of high blood pressure. The patient also has kidney disease for which she is being treated. No history of diabetes mellitus, asthma, or seizure. The patient has had a stroke about 18 years back on the right side. PAST SURGICAL HISTORY: Nil available. DRUG HISTORY: The patient is on metoprolol, pantoprazole. The patient is also on peritoneal dialysis. The patient also has past medical history of diastolic heart failure. PHYSICAL EXAMINATION: GENERAL: Alert and oriented lady. When I was seeing the patient, her daughter was present and it was okay with the patient. VITAL SIGNS: Pulse was 88 per minute. Blood pressure 122/78. NECK: Soft, supple. No mass felt. Trachea is centrally placed. CARDIOVASCULAR SYSTEM: First and second heart sounds normal. RESPIRATORY SYSTEM: Bilateral vascular breath sounds, chest clear. EXTREMITIES: Right lower limb examination revealed tenderness. Dorsalis pedis artery is palpable. Right shoulder examination reveals swelling. There is ecchymosis and bruise. There is tenderness. Range of motion last tested. DIAGNOSTIC DATA: X-ray of the right hip confirmed subscapular fracture of the right hip. X-ray of the right shoulder revealed head and neck fracture of the right humerus. The patient was explained the diagnosis and prognosis. I explained that the patient needs surgical fixation. Plate and screws will be put on. The other option is to go ahead with the 3 cannulated screws. However, after discussing at length with the patient and the daughter, the patient wanted to proceed with plate and screws. Risks with anesthesia was explained and that includes, but not limited to reaction to anesthetic agents, cardiac arrest, or rarely it might be fatal. The risks with operations include infection and if that happens the patient may need further surgical procedure. Other risks include delayed healing with dehiscence etc. I also explained the risk of avascular necrosis of the head of the femur. Detailed discussion took place. I also explained that if she does end up with avascular necrosis of the head of the femur, then she may need further surgical procedure. That includes removal of the plate and screw and converting it into bipolar hip or total hip. Since the patient has too many medical problems, bipolar hip may be preferred in case the patient ends with avascular necrosis of the head of the right femur. Detailed discussion took place. I also talked to Dr. Jori Gutierrez, the crystalizer operator, and he explained to me that the patient is high risk. I believe Dr. Gutierrez also talked to Dr. Patel, the patient's daughter, and explained the risks, benefits, etc. I also talked to Dr. Mendes, the anesthesiologist. Detailed discussion took place with crystalizer operator and anesthesiologist. I believe crystalizer operator and anesthesiologist also talked to the patient's daughter in detail. Accordingly, the surgery is booked for 12/01/2024. Appropriate lab work is being done. DT: 15:19:25 TT: 16:00:00 Ref: [id number] - TID: [id number]
[2024-12-01] MEDS: ONDANSETRON INJ 2 MG/ML INJ 2 ML 4 MG IV (17:11)
[2024-12-01] MEDS: SEVELAMER CARBONATE 800 MG TABLET PO (17:12)
[2024-12-01] MEDS: ceFAZolin/D5W 1 GM IVPB 1 GM/50 ML BAG IV (17:19)
--- NOTE | 2024-12-01 17:23 | SUR.PHASEI ---
1453: Pt received in [facility] via hospital bed with trapeze attached. Report from Sam JOSÉ and Dr. Mendes. Pt groggy but awake. Resp even, unlabored, but pt has exaggerated exspiratory grunt. Lung sound clear bilaterally. Anesthesia stated to just continue 02 at 6L/min. VS stable. Dressing to right lateral hip dry, clean, intact. Bilateral pedal pulses strong, regular. Pt has sensation to entire right leg/foot. No c/o pain, discomfort. PRBC infusing. 1514: [facility] here to do ordered x-rays. Pt tolerated procedure with no compliants voiced. 1545: Pt very anxious and is requesting her albuterol nebulizer treatment. Spoke with Dr. Mendes and he stated to give her the treatment. 1600: Albuterol nebulizer treatment complete. Pt more relaxed and expiratory grunt has stopped. 1615: PRBC infusion complete. Pt tolerated infusion with no untoward effects. 1630: Report to 3rd floor. 1645: [facility].
--- NOTE | 2024-12-01 18:48 | ESPR_ITS ---
Documentation for date of: 12/01/24 Subjective Subjective Interval history: Patient examined at bedside. She is having nausea with the dilaudid. Therefore experiencing poor pain control. She had periteoneal dialysis session yesterday. Daughter was at bedside who stated that patient started experiencing SOB while undergoing dialysis. Daughter failed to previously mention that peritoneal fill volume at home is 1500mL. Patient ended up receiving 2000mL yesterday. Dialysis nurse was contacted to change fill volume to 1500mL for session today. Cr today downtrended to 7.2, GFR 5. Will continue to closely monitor. Exam Vital Signs Temp Pulse Resp BP Pulse Ox O2 Del Method O2 Flow Rate 98.6 F 95 20 154/81 H 99 Room Air 1 12/01/24 16:15 12/01/24 18:26 12/01/24 18:26 12/01/24 16:15 12/01/24 18:26 12/01/24 12:00 12/01/24 18:26 Narrative Exam GEN: AOx3, able to speak full sentences however patient was in pain, HEENT: NC/AC, oral mucosa moist, neck supple CVS: RRR, S1-S2 present, no murmurs appreciated RESP: CTAB GI: soft,non distended, non tender, NBS MSK: Right shoulder and right hip has limited mobility, severe tenderness, right arm sling SKIN: warm and dry COMMERCIAL GLAZIER: CN II-XII and Sensation grossly intact. Objective Labs 12/02/24 05:20 12/02/24 05:20 Labs: Laboratory Results - last 24 hr 11/30/24 12/01/24 14:55 07:10 WBC 18.3 H RBC 2.60 L Hgb 7.9 L Hct 23.5 L MCV 90 MCH 30.4 MCHC 33.6 RDW Std Deviation 48.6 H Plt Count 365 Neut % (Auto) 79 Lymph % (Auto) 12 Lagrange % (Auto) 8 Eos % (Auto) 0 Baso % (Auto) 0 Neut # (Auto) 14.5 H Lymph # (Auto) 2.2 Lagrange # (Auto) 1.5 H Eos # (Auto) 0.0 Baso # (Auto) 0.0 Immature Gran # (Auto) 0.15 H Absolute Nucleated RBC 0.00 Immature Gran % 1 H Nucleated RBC % 0 PT 11.3 INR 1.0 Sodium 132 L Potassium 3.7 D Chloride 93 L Carbon Dioxide 24.6 Anion Gap 14 BUN 34 H Creatinine 7.2 H* Estim Creat Clear Calc 4.5 L eGFR 5 L* BUN/Creatinine Ratio 5 L Glucose 122 H Calculated Osmolality 273 L Calcium 9.1 Corrected Calcium 9.6 Phosphorus 5.6 H Magnesium 2.8 H Total Bilirubin 0.2 L AST 23 ALT 33 Alkaline Phosphatase 78 Total Protein 6.2 Albumin 3.4 Globulin 2.8 Albumin/Globulin Ratio 1.2 Free T4 1.29 Blood Type AB Positive Antibody Screen NEGATIVE Antibody Identification Cancelled Crossmatch See Detail Blood Bank Wristband ID Yes Quality Measures Quality Measures VTE prophylaxis (SCDs) Advance care planning discussed with:: other Assessment & Plan Assessment Current Active Medications: Generic Name Dose Route Start Last Admin Trade Name Freq PRN Reason Stop Dose Admin Acetaminophen 650 mg 11/29/24 21:28 Acetaminophen 325 Mg Tablet PO 12/29/24 21:27 Q6H PRN Fever >100.5 and mild pain 1-3 Albuterol/Ipratropium 3 ml 11/30/24 01:00 12/01/24 15:45 Albuterol/Ipratropium (Duoneb) Rt Annika 3 Ml Nebu INH 12/30/24 00:59 3 ml Q6HRRT SABRINA Administration Budesonide 0.25 mg 11/29/24 21:45 12/01/24 18:21 Budesonide Rt 0.25 Mg/2 Ml Nebu INH 12/29/24 21:44 0.25 mg BIDRT SABRINA Administration Hydromorphone HCl 0.5 mg 11/29/24 21:33 12/01/24 06:43 Hydromorphone Inj 2 Mg/Ml Vial IVP 12/04/24 21:32 0.5 mg Q3H PRN Administration Pain 7-10 Cefazolin Sodium/Dextrose 1 gm in 50 mls @ 50 mls/hr 12/01/24 17:07 12/01/24 17:19 Ancef Ivpb IV 12/02/24 02:06 50 mls/hr Q8H SABRINA Administration Labetalol HCl 10 mg 11/29/24 21:46 Labetalol Inj 5 Mg/Ml Vial 20 Ml IVP 12/29/24 21:41 Q3H PRN SBP >180mmHg Lidocaine 1 patch 12/01/24 09:00 Lidocaine 5% 1 Patch TOP 12/31/24 08:59 UD PRN PAIN Protocol Metoprolol Tartrate 12.5 mg 11/29/24 21:45 12/01/24 08:05 Metoprolol Tartrate 25 Mg Tablet PO 12/29/24 21:44 Not Given BID COUNT INCLUDES THE [facility] Metoprolol Tartrate 1 mg 12/01/24 14:41 Metoprolol Tartrate Inj 1 Mg/Ml Amp 5 Ml IVP Q5MIN PRN TACHYCARDIA Midazolam HCl 1 mg 12/01/24 14:39 Midazolam Inj 1 Mg/Ml Vial 2 Ml IV 12/02/24 14:38 Q5MIN PRN ANXIETY Ondansetron HCl 4 mg 11/29/24 21:33 12/01/24 17:11 Ondansetron Inj 2 Mg/Ml Inj 2 Ml IV 12/29/24 21:32 4 mg Q6H PRN Administration NAUSEA OR VOMITING Protocol Ondansetron HCl 4 mg 12/01/24 17:07 Ondansetron Inj 2 Mg/Ml Inj 2 Ml IV 12/31/24 17:06 Q6HR PRN NAUSEA OR VOMITING Oxycodone/Acetaminophen 1 tab 11/29/24 21:33 Oxycodone/Apap 5/325 Tablet PO 12/04/24 21:32 Q6H PRN PAIN SCALE 4-6 (Moderate Pantoprazole Sodium 40 mg 11/30/24 09:00 12/01/24 08:05 Pantoprazole 40 Mg Tablet PO 12/30/24 08:59 Not Given QDAY COUNT INCLUDES THE [facility] Pharmacy Consult 1 each 11/29/24 21:47 Pharmacy Renal Dose Adjustment 1 Ea XX 12/29/24 21:46 PRN PRN CONSULT Sevelamer Carbonate 800 mg 11/30/24 17:30 12/01/24 17:12 Sevelamer Carbonate 800 Mg Tablet PO 12/30/24 17:29 800 mg TIDWM COUNT INCLUDES THE [facility] Administration Plan Tho Lee is 84 yr female with PMH of hypertension, ESRD on peritoneal dialysis, hyperlipidemia, previous stroke, asthma, suspected diastolic dysfunction with ejection fraction 60%, 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 Nephrology consulted for ESRD. #ESRD on Peritoneal Dialysis ESRD on peritoneal dialysis since past ~ 3?4 years. Admission labs Cr 7, BUN 28, GFR 5, Na 130, K 3., Po4 6.3.. Patient follows with a instructional developer Dr. Virk in [place]. -sevelemer 800mg TID -plan for another peritoneal dialysis session tonight with 1500mL - Monitor electrolytes and volume status - Avoid nephrotoxic medications; dose-adjust meds as needed -dilaudid for pain control and zofran #Right Hip Fracture (Acute impacted right subcapital fracture) #Right Shoulder Fracture (Acute humeral head and neck fracture) #Hypertension #Anemia #Leukocytosis most likely reactive The patient's management plan was discussed with my attending physician Dr. Amezcua. Edna Hsu, PGY-1 Attending Provider Attestation/Addendum Pt seen and examined. Labs and radiology reviewed. Agree with assessment and plan and findings by resident. Temo Amezcua MD
--- NOTE | 2024-12-01 19:16 | PC.NURSE ---
MD moreira made aware of pt having 6 beats of PVC, no new order made at this time.
--- NOTE | 2024-12-01 20:28 | ESPR_ITS ---
Documentation for date of: 12/01/24 ANESTHESIA NOTE: Patient had spinal anesthesia (without intrathecal Duramorph) and R interscalene nerve block for R hip repair earlier today. Pre-op, I saw her with her family including Dr Patel and Mr [place] Patel. She was alert, c/o R UE and hip pain as she has R humerus and hip Fxs that the s urgeon was aware. She has significant hx including ESRD on PD, HTN, Antonia's granulomatosis, h/o chronic back pain. Her echo showed significant valvular abnormalities and elevated pulmonary pressure and her case and high risk was discussed with the surgeon, the grinder operator automatic, the patient and the family and all agreed to proceed. Per family, her last dose of Plavix was two days ago and we discussed risk of spinal hematoma, but decided to proceed with it to avoid GETA give her cardiac valvular abnormalities. Her pre-op CXR showed vascular congestion. She did well intra-op under spinal and mild sedation; spinal was placed easily, and I gave her the R UE nerve block for analgesia. She was started on 1 unit of RBC intra-op slowly and she received about 100 cc from the bag and the rest was continued post op. And she received about 250 cc of NS intra-op. She is anuric per family. At the end, she did well in PACU, vitals were stable, O2 sat was 99-100% throughout intra-op and in PACU. She did feel short of breath and I discussed with her and the daughter that interscalene block can sometimes make patient feel short of breath (due to ipsilateral phrenic nerve involvement and diaphragmatic paresis) but it's temporary and usually self resolves as the block wears off and she can be provided supportive treatment including supplemental O2, re-assurance and even mild sedation if needed. However, given her condition, other etiology of shortness of breath should also be considered especially pulmonary edema in her. I also educated the daughter about to watch for symptoms of spinal hematoma including LE numbness, weakness and incontinence. She was later transferred to the floor, where I just saw her briefly in 366 around 20:25 and she was alert in bed, head elevated, on 1 l/min NC O2. She c/o shortness of breath as before and I educated and re-assured her. Otherwise she denied pain and was comfortable and thankful. Will defer further management to the floor team. Vasu Mendes MD Anesthesia Progress Note Progress Note Most recent Vital Signs: Last Vital Signs Temp 98.2 F 12/01/24 20:00 Pulse 106 H 12/01/24 20:00 Resp 19 12/01/24 20:00 BP 163/77 H 12/01/24 20:00 Pulse Ox 97 12/01/24 20:00 O2 Del Method Room Air 12/01/24 20:00 O2 Flow Rate 1 12/01/24 18:26
[2024-12-01] MEDS: METOPROLOL TARTRATE 25 MG TABLET 12.5 MG PO (20:46)
[2024-12-01] MEDS: oxyCODONE/APAP 5/325 TABLET 1 TAB PO (22:48)
[2024-12-02] VITALS (14 sets, daily range): BP systolic 127–166; BP diastolic 60–79; PULSE 83–98; RESP 18–25; TEMP 36.2–36.9; O2SAT 94–100; BMI 12.0
[2024-12-02] MEDS: ALBUTEROL/IPRATROPIUM (Duoneb) RT SOL 3 ML NEBU INH ×4 (00:10→18:26)
[2024-12-02] MEDS: ceFAZolin/D5W 1 GM IVPB 1 GM/50 ML BAG IV (01:05)
[2024-12-02] MEDS: ONDANSETRON INJ 2 MG/ML INJ 2 ML 4 MG IV ×2 (02:37→20:42)
[2024-12-02 05:54] LABS: Basophils % (Auto) 0 % (0-2.5); Eosinophils % (Auto) 0 % (0-10); Hematocrit 28.3 % (36.0-46.0); Hemoglobin 9.3 g/dL (12.0-16.0); Immature Granulocytes % (Auto) 1 % (0-0); Immature Granulocytes Auto 0.11 Thou/mm3 (0.00-0.00); Lymphocytes # (Auto) 0.9 Thou/mm3 (1.0-4.8); Lymphocytes % (Auto) 6 % (10-50); Mean Corpuscular HGB Conc 32.9 g/dl (31.0-37.0); Mean Corpuscular Hemoglobin 29.9 pg (25.0-35.0); Mean Corpuscular Volume 91 fL (80-100); Monocytes # (Auto) 0.8 Thou/mm3 (0.0-0.8); Monocytes % (Auto) 5 % (0-12); Neutrophils # (Auto) 13.6 Thou/mm3 (1.8-7.7); Neutrophils % (Auto) 88 % (37-80); Nucleated Red Blood Cell % 0 /100 WBC (0); Platelet Count 335 Thou/mm3 (140-440); RDW Standard Deviation 54.1 fL (36.4-46.3); Red Blood Count 3.11 Miln/mm3 (4.00-5.20); White Blood Count 15.4 Thou/mm3 (3.6-11.0)
[2024-12-02 06:32] LABS: Glucose Estimated Average 103 mg/dL (80-131); Hemoglobin A1C 5.2 % Hgb (4.8-6.0)
[2024-12-02] MEDS: BUDESONIDE RT 0.25 MG/2 ML NEBU INH ×2 (06:37→18:26)
[2024-12-02 06:49] LABS: Alanine Aminotransferase 17 U/L (10-49); Albumin, Serum 3.6 gm/dL (3.4-4.8); Albumin/Globulin Ratio 1.2 (1.2-2.2); Alkaline Phosphatase 81 U/L (46-116); Anion Gap 15 (7-16); Aspartate Amino Transferase 22 U/L (0-34); BUN/Creatinine Ratio 5 Ratio (12-20); Bilirubin,Total 0.2 mg/dL (0.3-1.2); Blood Urea Nitrogen 39 mg/dL (9-23); Calcium 9.3 mg/dL (8.3-10.6); Calcium (Corrected) 9.6 mg/dL (8.5-10.1); Carbon Dioxide 25.7 mMol/L (20.0-31.0); Cardiac Risk Estimate 3.2 RATIO (3.7-5.6); Chloride 95 mMol/L (98-107); Cholesterol 138 mg/dL (132-200); Creatinine (Component) 7.4 mg/dL (0.6-1.3); Estimated Creatinine Clearance 4.4 mL/min (>60); Glucose 160 mg/dL (74-106); HDL Cholesterol 43 mg/dL (40-60); LDL Cholesterol,Calculated 83 mg/dL (0-130); Magnesium 2.8 mg/dL (1.6-2.6); Osmolality,Calculated 284 (275-295); Phosphorous 6.3 mg/dL (2.4-5.1); Potassium 3.7 mMol/L (3.4-5.1); Sodium 136 mMol/L (136-145); Total Protein 6.6 gm/dL (5.7-8.2); Triglycerides 58 mg/dL (30-150); eGFR 5 See Note
--- NOTE | 2024-12-02 08:14 | PD.RESPRO ---
Documentation for date of: 12/02/24 Subjective Subjective Interval history: Patient seen and examined at bedside this morning. POD1. No acute overnight events. She is s/p femoral neck system for hip fracture & closed reduction and internal fixation of shoulder with orthopedics. Patient will be started on Eliquis 2.5 mg twice daily for DVT prophylaxis. Vitals are stable, she is off oxygen and denies SOB. Labs reviewed and leukocytosis downtrending; CHEM panel consistent with ESRD labs. At bedside, patient complains of pain in hip and shoulder when touched/repositioned, and Dilaudid has been giving her nausea. We will adjust pain regimen and give oxycodone for pain control 4?10, with Dilaudid as breakthrough pain, or prior to physical therapy. Will ask RN to give Zofran 30 minutes prior to Dilaudid. There was consideration of starting an NSAID, however we will hold off due to patient's allergies/ESRD/poor clearance, and the increased risk of bleeding while simultaneously receiving Eliquis. Additionally, patient has not had a bowel movement and typically has an aggressive bowel regimen at home, therefore will add scheduled senna twice daily, MiraLAX, and Maalox for gastritis. Exam Vital Signs Temp Pulse Resp BP Pulse Ox O2 Del Method O2 Flow Rate 97.9 F 98 24 H 166/79 H 100 Room Air 1 12/02/24 04:00 12/02/24 06:37 12/02/24 06:37 12/02/24 04:00 12/02/24 06:37 12/02/24 04:00 12/02/24 06:37 Narrative Exam Gen: AAOx3, in significant distress due to pain; pleasant to speak with and answers all questions appropriately HEENT: NCAT, MMM, no LAD appreciated CVS: normal S1, S2. RRR. Systolic murmur at R 2nd ICS Resp: CTA B/L. No rhonchi, rales, crackles or wheezing Abd: soft, non-tender, non-distended. BS+ in all 4 quadrants MSK: Dec ROM in R extremities; R leg TTP at hip; R arm in sling Neuro: CN II-XII grossly intact but not formally tested Objective Labs 12/03/24 05:34 12/03/24 05:34 Labs: Laboratory Results - last 24 hr 11/30/24 12/01/2425 14:55 07:10 05:20 WBC 15.4 H RBC 3.11 L Hgb 9.3 L Hct 28.3 L MCV 91 MCH 29.9 MCHC 32.9 RDW Std Deviation 54.1 H Plt Count 335 D Neut % (Auto) 88 H Lymph % (Auto) 6 L [place] % (Auto) 5 Eos % (Auto) 0 Baso % (Auto) 0 Neut # (Auto) 13.6 H Lymph # (Auto) 0.9 L [place] # (Auto) 0.8 Eos # (Auto) 0.0 Baso # (Auto) 0.0 Immature Gran # (Auto) 0.11 H Absolute Nucleated RBC 0.00 Immature Gran % 1 H Nucleated RBC % 0 Sodium 132 L 136 Potassium 3.7 D 3.7 Chloride 93 L 95 L Carbon Dioxide 24.6 25.7 Anion Gap 14 15 BUN 34 H 39 H Creatinine 7.2 H* 7.4 H* Estim Creat Clear Calc 4.5 L 4.4 L eGFR 5 L* 5 L* BUN/Creatinine Ratio 5 L 5 L Glucose [address] Glu mg/dL 103 Hemoglobin A1c 5.2 Calculated Osmolality 273 L 284 Calcium 9.1 9.3 Corrected Calcium 9.6 9.6 Phosphorus 5.6 H 6.3 H Magnesium 2.8 H 2.8 H Total Bilirubin 0.2 L 0.2 L AST 23 22 ALT 33 17 Alkaline Phosphatase 78 81 Total Protein 6.2 6.6 Albumin 3.4 3.6 Globulin 2.8 3.0 Albumin/Globulin Ratio 1.2 1.2 Triglycerides 58 Cholesterol 138 LDL Cholesterol, Calc 83 HDL Cholesterol 43 Cholesterol/HDL Ratio 3.2 L Free T4 1.29 Blood Type AB Positive Antibody Screen NEGATIVE Antibody Identification Cancelled Crossmatch See Detail Blood Bank Wristband ID Yes Quality Measures Quality Measures VTE prophylaxis Advance care planning discussed with:: patient and child Assessment & Plan Assessment Current Active Medications: Generic Name Dose Route Start Last Admin Trade Name Freq PRN Reason Stop Dose Admin Acetaminophen 650 mg 11/29/24 21:28 Acetaminophen 325 Mg Tablet PO 12/29/24 21:27 Q6H PRN Fever >100.5 and mild pain 1-3 Albuterol/Ipratropium 3 ml 11/30/24 01:00 12/02/24 06:37 Albuterol/Ipratropium (Duoneb) Rt Annika 3 Ml Nebu INH 12/30/24 00:59 3 ml Q6HRRT SABRINA Administration Apixaban 2.5 mg 12/02/24 09:00 Apixaban 2.5 Mg Tablet PO 01/01/25 08:59 BID SABRINA Budesonide 0.25 mg 11/29/24 21:45 12/02/24 06:37 Budesonide Rt 0.25 Mg/2 Ml Nebu INH 12/29/24 21:44 0.25 mg BIDRT SABRINA Administration Hydromorphone HCl 0.5 mg 11/29/24 21:33 12/01/24 19:22 Hydromorphone Inj 2 Mg/Ml Vial IVP 12/04/24 21:32 0.5 mg Q3H PRN Administration Pain 7-10 Labetalol HCl 10 mg 11/29/24 21:46 Labetalol Inj 5 Mg/Ml Vial 20 Ml IVP 12/29/24 21:41 Q3H PRN SBP >180mmHg Lidocaine 1 patch 12/01/24 09:00 Lidocaine 5% 1 Patch TOP 12/31/24 08:59 UD PRN PAIN Protocol Metoprolol Tartrate 12.5 mg 11/29/24 21:45 12/01/24 20:46 Metoprolol Tartrate 25 Mg Tablet PO 12/29/24 21:44 12.5 mg BID SABRINA Administration Metoprolol Tartrate 1 mg 12/01/24 14:41 Metoprolol Tartrate Inj 1 Mg/Ml Amp 5 Ml IVP Q5MIN PRN TACHYCARDIA Midazolam HCl 1 mg 12/01/24 14:39 Midazolam Inj 1 Mg/Ml Vial 2 Ml IV 12/02/24 14:38 Q5MIN PRN ANXIETY Ondansetron HCl 4 mg 12/01/24 17:07 Ondansetron Inj 2 Mg/Ml Inj 2 Ml IV 12/31/24 17:06 Q6HR PRN NAUSEA OR VOMITING Oxycodone/Acetaminophen 1 tab 11/29/24 21:33 12/01/24 22:48 Oxycodone/Apap 5/325 Tablet PO 12/04/24 21:32 1 tab Q6H PRN Administration PAIN SCALE 4-6 (Moderate Pantoprazole Sodium 40 mg 11/30/24 09:00 12/01/24 08:05 Pantoprazole 40 Mg Tablet PO 12/30/24 08:59 Not Given QDAY [facility] Pharmacy Consult 1 each 11/29/24 21:47 Pharmacy Renal Dose Adjustment 1 Ea XX 12/29/24 21:46 PRN PRN CONSULT Sevelamer Carbonate 800 mg 11/30/24 17:30 12/01/24 17:12 Sevelamer Carbonate 800 Mg Tablet PO 12/30/24 17:29 800 mg TIDWM [facility] Administration Plan Patient is an 84-year-old female with HTN, HLD, HFpEF (EF 60% in 2019), ESRD on peritoneal dialysis, history of CVA who was admitted after a GLF in which she sustained a right hip fracture and right shoulder fracture. She is pending surgical repair with orthopedics for right hip fracture, and requires cardiac clearance. Nephrology consulted for inpatient peritoneal dialysis. #Right hip fracture, s/p FNS on 12/01, POD1 #Right shoulder fracture, s/p CRIF on 12/01 GLF after tripping on her slippers while at daughter's home. No LOC. Patient is visiting from [place]. Head CT was negative for acute pathology. Hip x-ray & pelvis CT revealed acute impacted right subcapital hip fracture Shoulder and humerus x-ray revealed acute fractures of the humeral head and neck Shoulder fracture placed in sling Orthopedics consulted for surgical repair of right hip fracture Cardiology consulted for clearance: METS <4, RCRI 0 points => high risk surgery with cardiology follow up Echo: Normal LV & RV size and function. EF 55-60%. Diastolic dysfunction present but cannot be graded. Moderately elevated RVSP 55 mmHg. Moderate to severe aortic stenosis with a V-max 3.8 m/s. Severe posterior MAC and moderate anterior MAC with mild mitral stenosis. Moderate to severe MR. Moderate TR. Mild to moderate AI. Moderately dilated LA LA and mildly dilated RA -Pain control with acetaminophen and oxycodone; Dilaudid for breakthrough pain or prior to physical therapy?will give Zofran prior to Dilaudid -Physical therapy ordered -Eliquis 2.5 mg twice daily for DVT prophylaxis -Encouraged to use IS to prevent post-op atelectasis #Constipation #Gastritis Started aggressive bowel regimen with scheduled senna twice daily, MiraLAX daily Maalox as needed 4 times daily for gastritis #SOB, resolved, off oxygen Overnight (11/30) patient became SOB, desatted into 80s with improvement on NC and after PD CXR consistent with vascular congestion, mild CHF picture. DDx: Fluid overload state from IV fluids vs 2L PD cycler (family uses 1.5L at home) vs progression of Antonia's CT chest & ANCA+ in [place]; will see if we can get the results via patient portal from patient's son -Will likely need outpatient pulm follow up #HTN #?HFpEF (EF 55-60%), not in acute exacerbation SBP fairly normal for patient's age, with pain likely contributing to elevation Continue with pain management See echo results above Cardiology following, appreciate recs -Resumed patient's home metoprolol to prevent rebound tachycardia; prn labetalol #Aortic stenosis, moderate-severe Murmur appreciated; and seen on echo Cardiology following; maintain euvolemic state Recomend to have cardiology follow up outpatient #ESRD on PD #Antonia's granulomatosis Labs consistent with ESRD Nephro consulted, appreciate recommendations: Peritoneal dialysis session - 1.5L wash via cycler Sevelamer 800 mg 3 times daily for hyperphosphatemia Avoid nephrotoxic medications when possible and renally dose medication #History of CVA #HLD Will resume home atorvastatin Dispo: S/p hip fracture repair/reduction of shoulder fracture; starting physical therapy; continue PD per nephro; likely Home health with PT on discharge when stable GI PPx: Protonix, as needed Maalox DVT PPx: Eliquis 2.5 mg twice daily Diet: Renal, Nepro CODE STATUS: Full code Patient seen and care discussed with my attending Dr. Hernandez. Leandra Burgess MD PGY-3 Attending Provider Attestation/Addendum I reviewed labs, imaging, EKG, home medications and prior available records. Face to face evaluation was performed by me. I have personally examined the patient and discussed assessment and plan with the IM team. I reviewed the resident note and agree with the plan with exceptions as below. Impacted right subcapital hip fracture Right shoulder fracture ESRD on peritoneal dialysis Essential hypertension Leukocytosis Consulted orthopedic surgery. N.p.o. after midnight for OR on 12/01 Management of pain as needed Started Eliquis 2.5 mg twice daily PT evaluation after OR: Recommended home with home health Right shoulder sling. No surgical intervention needed Trend WBC: Downtrending Consulted nephrology for dialysis recommendations: Start closeed peritoneal dialysis Resumed home metoprolol. Monitor BP
[2024-12-02] MEDS: SEVELAMER CARBONATE 800 MG TABLET PO ×3 (09:05→17:00)
[2024-12-02] MEDS: METOPROLOL TARTRATE 25 MG TABLET 12.5 MG PO ×2 (09:05→20:24)
[2024-12-02] MEDS: APIXABAN 2.5 MG TABLET PO ×2 (09:05→20:24)
[2024-12-02] MEDS: PANTOPRAZOLE 40 MG TABLET PO (09:05)
[2024-12-02] MEDS: oxyCODONE/APAP 5/325 TABLET 1 TAB PO (09:25)
--- NOTE | 2024-12-02 09:42 | PD.RESPRO ---
Documentation for date of: 12/02/24 Subjective Subjective Interval history: Patient seen and examined at bedside. Patient's labs and vitals reviewed Patient is postop day 1 status post Synthes implant femoral neck right hip fracture with 2 hole plate and closed treatment of fracture of neck and head of right humerus by orthopedics. Patient had the procedure without any complications. Patient's dialysis fill volume was changed to 1500 cc by managing editor. Patient started on Eliquis 2.5 twice daily for DVT prophylaxis postop. Patient starting physical therapy today, complains of some nausea on and off due to pain medication. Has no chest pain, improved shortness of breath, dizziness, stable from cardiac perspective Exam Vital Signs Temp Pulse Resp BP Pulse Ox O2 Del Method O2 Flow Rate 97.3 F 92 20 143/68 H 100 Nasal Cannula 1 12/02/24 08:00 12/02/24 09:05 12/02/24 08:00 12/02/24 09:05 12/02/24 08:00 12/02/24 08:00 12/02/24 08:00 Narrative Exam Physical Exam General: Awake and in no acute distress. Conversational and non-toxic appearing. HEENT: Normocephalic, atraumatic, mucous membranes moist. Heart: Regular rate and rhythm, positive murmur in aortic area, pulmonic area and mitral area. Lungs: Clear to auscultation with no wheezing or crackles. Abdomen: Soft, nondistended, nontender, positive bowel sounds. ?No guarding or rebound tenderness. Neurologic: Alert and oriented x3, no gross neurological deficit, and patient able to move all 4 extremities. Extremities: Right arm in sling, right leg shorter than left, externally rotated. Skin: No rash or ecchymoses. Objective Labs 12/02/24 05:20 12/02/24 05:20 Labs: Laboratory Results - last 24 hr 11/30/24 12/02/24 14:55 05:20 WBC 15.4 H RBC 3.11 L Hgb 9.3 L Hct 28.3 L MCV 91 MCH 29.9 MCHC 32.9 RDW Std Deviation 54.1 H Plt Count 335 D Neut % (Auto) 88 H Lymph % (Auto) 6 L [place] % (Auto) 5 Eos % (Auto) 0 Baso % (Auto) 0 Neut # (Auto) 13.6 H Lymph # (Auto) 0.9 L [place] # (Auto) 0.8 Eos # (Auto) 0.0 Baso # (Auto) 0.0 Immature Gran # (Auto) 0.11 H Absolute Nucleated RBC 0.00 Immature Gran % 1 H Nucleated RBC % 0 Sodium 136 Potassium 3.7 Chloride 95 L Carbon Dioxide 25.7 Anion Gap 15 BUN 39 H Creatinine 7.4 H* Estim Creat Clear Calc 4.4 L eGFR 5 L* BUN/Creatinine Ratio 5 L Glucose [address] Glu mg/dL 103 Hemoglobin A1c 5.2 Calculated Osmolality 284 Calcium 9.3 Corrected Calcium 9.6 Phosphorus 6.3 H Magnesium 2.8 H Total Bilirubin 0.2 L AST 22 ALT 17 Alkaline Phosphatase 81 Total Protein 6.6 Albumin 3.6 Globulin 3.0 Albumin/Globulin Ratio 1.2 Triglycerides 58 Cholesterol 138 LDL Cholesterol, Calc 83 HDL Cholesterol 43 Cholesterol/HDL Ratio 3.2 L Blood Type AB Positive Antibody Screen NEGATIVE Antibody Identification Cancelled Crossmatch See Detail Blood Bank Wristband ID Yes Quality Measures Quality Measures VTE prophylaxis (SCDs) Advance care planning discussed with:: patient Assessment & Plan Assessment Current Active Medications: Generic Name Dose Route Start Last Admin Trade Name Freq PRN Reason Stop Dose Admin Acetaminophen 650 mg 11/29/24 21:28 Acetaminophen 325 Mg Tablet PO 12/29/24 21:27 Q6H PRN Fever >100.5 and mild pain 1-3 Albuterol/Ipratropium 3 ml 11/30/24 01:00 12/02/24 06:37 Albuterol/Ipratropium (Duoneb) Rt Annika 3 Ml Nebu INH 12/30/24 00:59 3 ml Q6HRRT SABRINA Administration Apixaban 2.5 mg 12/02/24 09:00 12/02/24 09:05 Apixaban 2.5 Mg Tablet PO 01/01/25 08:59 2.5 mg BID SABRINA Administration Budesonide 0.25 mg 11/29/24 21:45 12/02/24 06:37 Budesonide Rt 0.25 Mg/2 Ml Nebu INH 12/29/24 21:44 0.25 mg BIDRT SABRINA Administration Hydromorphone HCl 0.5 mg 11/29/24 21:33 12/01/24 19:22 Hydromorphone Inj 2 Mg/Ml Vial IVP 12/04/24 21:32 0.5 mg Q3H PRN Administration Pain 7-10 Labetalol HCl 10 mg 11/29/24 21:46 Labetalol Inj 5 Mg/Ml Vial 20 Ml IVP 12/29/24 21:41 Q3H PRN SBP >180mmHg Lidocaine 1 patch 12/01/24 09:00 Lidocaine 5% 1 Patch TOP 12/31/24 08:59 UD PRN PAIN Protocol Metoprolol Tartrate 12.5 mg 11/29/24 21:45 12/02/24 09:05 Metoprolol Tartrate 25 Mg Tablet PO 12/29/24 21:44 12.5 mg BID SABRINA Administration Metoprolol Tartrate 1 mg 12/01/24 14:41 Metoprolol Tartrate Inj 1 Mg/Ml Amp 5 Ml IVP Q5MIN PRN TACHYCARDIA Midazolam HCl 1 mg 12/01/24 14:39 Midazolam Inj 1 Mg/Ml Vial 2 Ml IV 12/02/24 14:38 Q5MIN PRN ANXIETY Ondansetron HCl 4 mg 12/01/24 17:07 Ondansetron Inj 2 Mg/Ml Inj 2 Ml IV 12/31/24 17:06 Q6HR PRN NAUSEA OR VOMITING Oxycodone/Acetaminophen 1 tab 11/29/24 21:33 12/02/24 09:25 Oxycodone/Apap 5/325 Tablet PO 12/04/24 21:32 1 tab Q6H PRN Administration PAIN SCALE 4-6 (Moderate Pantoprazole Sodium 40 mg 11/30/24 09:00 12/02/24 09:05 Pantoprazole 40 Mg Tablet PO 12/30/24 08:59 40 mg QDAY SABRINA Administration Pharmacy Consult 1 each 11/29/24 21:47 Pharmacy Renal Dose Adjustment 1 Ea XX 12/29/24 21:46 PRN PRN CONSULT Sevelamer Carbonate 800 mg 11/30/24 17:30 12/02/24 09:05 Sevelamer Carbonate 800 Mg Tablet PO 12/30/24 17:29 800 mg TIDWM [facility] Administration Plan Assessment and plan: Summary: Ms. 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 #Preoperative cardiac risk assessment #Diastolic heart failure, EF 60%, 2019, NHYA class III #Moderate to severe aortic stenosis Patient presented status post ground-level mechanical fall, has right hip and right shoulder fracture, orthopedics consulted for cardiology clearance. Patient denied any dizziness, presyncope, loss of consciousness and mentions that she remembers the incident clearly. Patient does have murmur in aortic area, mitral area. Otherwise patient is on peritoneal dialysis, does have history of diastolic heart failure, was admitted to the hospital previously for CHF exacerbation. Patient does have shortness of breath on mild exertion, independent ADLs, walks using a walker at baseline, does have shortness of breath on activities of daily living, reports is able to walk about 50-60 steps without shortness of breath. Patient baseline METS less than 4 per history. EKG showed NSR with acute ST-T changes history of ischemia. Cholesterol 138, LDL 83, HDL 43, Triglycerides 58; Hemoglobin A1c 5.2%; TSH 0.41, free t4 1.29 Patient does not have any unstable or active arrhythmias. Patient does not have any history of any CAD does not have any acute ischemic heart disease symptoms or signs at the present point of time.? Patient does have history of diastoic heart failure and is not in overt heart failure at the present point of time No history of any diabetes mellitus requiring insulin Patient does have history of ESRD on PD with baseline creatinine greater than 2. Patient also has history of stroke with remote more than 15 years. As noted above, patient does not have any active cardiac conditions and his RCRI risk score is 0 with with a low risk of 3.9% risk of major adverse cardiac events Echo 11/30/2024: Normal LV size and function. EF 55-60%. Diastolic dysfunction present but cannot be graded. Normal RV size and function. Estimated RVSP moderately elevated RVSP 55 mm hg. Moderate to Severe . AV vmax 3.8 m/s, Mean PG 38 mm hg. LATRICE 0.5 sq cm. Severe posterior mac AND moderate anterior MAC with mild mitral stenosis mean PG 5 mm hg. Moderate to sevre MR. moderate TR and mild to moderate AI. Moderately dilated LA and mildly dilated RA. As noted above patient has moderate to severe aortic stenosis with a valve area of 0.5 cm? by the V-max is only 3.8 m/s and mean PG 38 mmHg along with a history of moderate PAH, mild mitral stenosis, moderate to severe MR, moderate TR which makes her high risk for the above surgery but not a primary diuresis as patient does not have critical aortic stenosis and the V-max is still 4 m/s with normal LVEF. Her overall EF is normal at 55 to 60% with normal RV function RVSP is only estimated to be in moderately increased at 55 mmHg. Discussed with orthopedic surgeon Dr. Ramirez as well as the anesthesiologist Dr. Mendes and the patient's daughter Jorge about the high cardiac risk for the surgery and the she will need further evaluation of her valvular heart disease but cannot be done in emergently as she is not a surgical AVR candidate and will need complete evaluation for TAVR as outpatient, The patient needs an orthopedic surgery which is considered urgent and emergent for her at present point of time -should proceed with surgery as long as the patient, family as well as the surgeon agreed that she is at high risk of the surgery with higher incidence of complications given her age and comorbidities including end-stage renal disease and heart disease, diastolic heart failure Recommendations: -Patient is status post surgery without any cardiac applications., will continue to monitor -Will need close outpatient follow-up, follow-up in clinic 1 to 2 weeks after discharge #Right Hip Fracture (Acute impacted right subcapital fracture) status post Synthes implant, 2 hole plate 12/01/2024 #Right Shoulder Fracture (Acute humeral head and neck fracture) status post closed reduction treatment 12/01/2024 #Status post ground-level mechanical fall Patient presented status post ground-level mechanical fall, has right hip and right shoulder fracture, orthopedics consulted for cardiology clearance. Patient denied any dizziness, presyncope, loss of consciousness and mentions that she remembers the incident clearly. Humerus x-ray shows acute fractures humeral head and neck (comminuted fracture and humeral head through greater tuberosity) Shoulder x-ray acute fracture of humeral head and neck Pelvis CT shows acute impacted right subcapital hip fracture Patient is postop day 1 status post Synthes implant femoral neck right hip fracture with 2 hole plate and closed treatment of fracture of neck and head of right humerus by orthopedics. Patient had the procedure without any complications. -Patient on Eliquis 2.5 twice daily for DVT prophylaxis #Hyperlipidemia Lipid panel shows cholesterol 138, LDL 83, HDL 43, triglycerides 58 -Consider resuming home dose atorvastatin 40 mg daily #Hypertension Patient on metoprolol tartrate at home for blood pressure management, resumed by primary team. #Asthma On DuoNeb breathing treatment, resumed budesonide #End-stage renal disease on peritoneal dialysis #Donna's Granulomatosis, diagnosed 25 years ago End-stage renal disease on peritoneal dialysis secondary to Antonia's for the past 3 to 4 years Nephrology consult following patient closely #History of CVA, 15 years ago #Osteoarthritis, Osteoporosis #GERD Thank you for the consult and allowing to participate in the care of the patient. Cardiology will continue to follow. Case discussed with Attending Dr. Olivares. Misha Mcgowan PGY1 Disclaimer: This note was dictated by speech recognition. Minor errors in lmft may be present due to voice recognition software. Attending Provider Attestation/Addendum I have personally seen and examined the patient separately on the above date of service and discussed the plan of care with the resident. I reviewed the resident Dr. Misha Mcgowan consultation progress note and agree with the resident findings and plan in the note above and have also edited the documentation to reflect my findings and plan. Jori Olivares M.D. Interventional Cardiology
[2024-12-02] MEDS: SENNA TABLET 1 TAB PO ×2 (11:20→20:24)
[2024-12-02] MEDS: POLYETHYLENE GLYCOL 17 GM PACKET PO (11:21)
[2024-12-03] VITALS (14 sets, daily range): BP systolic 105–145; BP diastolic 58–69; PULSE 76–95; RESP 17–26; TEMP 36.1–36.6; O2SAT 96–100
[2024-12-03] MEDS: ALBUTEROL/IPRATROPIUM (Duoneb) RT SOL 3 ML NEBU INH ×4 (00:04→19:54)
[2024-12-03 06:02] LABS: Basophils % (Auto) 0 % (0-2.5); Eosinophils # (Auto) 0.1 Thou/mm3 (0.0-0.5); Eosinophils % (Auto) 1 % (0-10); Hematocrit 24.5 % (36.0-46.0); Immature Granulocytes % (Auto) 1 % (0-0); Immature Granulocytes Auto 0.06 Thou/mm3 (0.00-0.00); Lymphocytes # (Auto) 1.8 Thou/mm3 (1.0-4.8); Lymphocytes % (Auto) 14 % (10-50); Mean Corpuscular HGB Conc 34.7 g/dl (31.0-37.0); Mean Corpuscular Volume 87 fL (80-100); Monocytes % (Auto) 8 % (0-12); Neutrophils % (Auto) 77 % (37-80); Nucleated Red Blood Cell % 0 /100 WBC (0); Platelet Count 333 Thou/mm3 (140-440); RDW Standard Deviation 49.1 fL (36.4-46.3); Red Blood Count 2.83 Miln/mm3 (4.00-5.20)
[2024-12-03 06:21] LABS: Hemoglobin 8.5 g/dL (12.0-16.0)
[2024-12-03] MEDS: BUDESONIDE RT 0.25 MG/2 ML NEBU INH ×2 (06:23→19:54)
[2024-12-03 06:36] LABS: Albumin, Serum 3.2 gm/dL (3.4-4.8); Anion Gap 12 (7-16); BUN/Creatinine Ratio 7 Ratio (12-20); Blood Urea Nitrogen 44 mg/dL (9-23); Calcium (Corrected) 9.6 mg/dL (8.5-10.1); Carbon Dioxide 26.6 mMol/L (20.0-31.0); Chloride 95 mMol/L (98-107); Creatinine (Component) 6.7 mg/dL (0.6-1.3); Estimated Creatinine Clearance 4.8 mL/min (>60); Glucose 133 mg/dL (74-106); Osmolality,Calculated 281 (275-295); Potassium 3.2 mMol/L (3.4-5.1); Sodium 134 mMol/L (136-145); eGFR 6 See Note
[2024-12-03] MEDS: PANTOPRAZOLE 40 MG TABLET PO (08:00)
[2024-12-03] MEDS: SENNA TABLET 1 TAB PO ×2 (08:00→21:14)
[2024-12-03] MEDS: METOPROLOL TARTRATE 25 MG TABLET 12.5 MG PO ×2 (08:00→21:14)
[2024-12-03] MEDS: POLYETHYLENE GLYCOL 17 GM PACKET PO (08:00)
[2024-12-03] MEDS: APIXABAN 2.5 MG TABLET PO ×2 (08:00→21:14)
[2024-12-03] MEDS: SEVELAMER CARBONATE 800 MG TABLET PO ×3 (08:00→16:44)
[2024-12-03] MEDS: ONDANSETRON INJ 2 MG/ML INJ 2 ML 4 MG IV ×2 (09:41→16:51)
[2024-12-03] MEDS: HYDROmorphone INJ 2 MG/ML VIAL 0.5 MG IVP ×2 (09:41→16:58)
--- NOTE | 2024-12-03 10:12 | PC.SS ---
WheelChairs Patients diagnosis creates mobility limitations that significantly impairs ability to participate in the patient?s activities of daily living either in their entirety, or in a reasonable time frame in the home and the patient?s mobility limitations cannot be sufficiently resolved with an appropriately fitted cane or walker. Also the use of a manual wheelchair will sufficiently improve patient?s ability to participate in the activities of daily living in the home and the patient is willing to use the wheelchair that is provided in the home. The patient has some one in the home that is available, willing and able to provide assistance with the wheelchair. Hospital Bed Patient has (dx) a medical condition which requires positioning of the body in ways not feasible with an ordinary bed due to . Patient requires positioning of the body in ways not feasible with an ordinary bed in order to alleviate pain due to . Patient requires positioning of the head or upper body to be elevated more than 30 degrees most of the time due to? (pt dx: COPD, CHF, pulmonary disease). The use of pillows and wedges have been considered and ruled out. Patient diagnosis requires positioning of the head or upper body to be elevated more than 30 degrees. Also the diagnosis requires positioning in order to alleviate pain and if the patient requires frequent changes in the body positioning and/or has an immediate need for change in the body position. Pillows and wedges have been considered and ruled out. Bedside Commode Patient is physically incapable of utilizing regular toilet facilities because his or her diagnosis confines the patient to a single room. Patient is confined to a single level, and there is no toilet on that level; patient cannot access the toilet facilities in a timely manner due to lack of ambulation. Trapeze Bar Patient requires the use of a trapeze bar to help the patient sit up because of a respiratory condition or to change the body position or to get in and out of bed.
--- NOTE | 2024-12-03 10:22 | PC.SS ---
SS follow up note; SS spoke to patients daughter, Justin in regards to discharge plan, [facility] and is requesting, Wheelchair, hospital bed, 3 in 1 commode and trapeze, SS sent to [facility] [place] through [facility], however agency is closed today.
--- NOTE | 2024-12-03 10:27 | ESPR_ITS ---
Documentation for date of: 12/03/24 Subjective Subjective Interval history: Patient seen and examined at bedside. Vitals and labs reviewed. Patient today has no current complaints, is status postop day 2. Patient's blood pressure well-controlled on metoprolol tartrate twice daily. Patient complaining of intermittent episodes of nausea/vomiting due to pain medication. Participating in physical therapy, had first session yesterday is scheduled for physical therapy later today. Patient is stable from cardiac perspective, has no current cardiac applications. Exam Vital Signs Temp Pulse Resp BP Pulse Ox O2 Del Method O2 Flow Rate 97.6 F 82 19 131/65 H 97 Room Air 1 12/03/24 08:23 12/03/24 08:23 12/03/24 08:23 12/03/24 08:00 12/03/24 08:00 12/03/24 08:00 12/02/24 08:00 Narrative Exam Physical Exam General: Awake and in no acute distress. Conversational and non-toxic appearing. HEENT: Normocephalic, atraumatic, mucous membranes moist. Heart: Regular rate and rhythm, positive murmur in aortic area, pulmonic area and mitral area. Lungs: Clear to auscultation with no wheezing or crackles. Abdomen: Soft, nondistended, nontender, positive bowel sounds. ?No guarding or rebound tenderness. Neurologic: Alert and oriented x3, no gross neurological deficit, and patient able to move all 4 extremities. Extremities: Right arm in sling, dressing intact right leg, no redness/swelling noted. Skin: No rash or ecchymoses. Objective Labs 12/05/24 05:32 12/05/24 05:32 Labs: Laboratory Results - last 24 hr 12/03/24 05:34 WBC 13.0 H RBC 2.83 L Hgb 8.5 L Hct 24.5 L MCV 87 MCH 30.0 MCHC 34.7 RDW Std Deviation 49.1 H Plt Count 333 Neut % (Auto) 77 Lymph % (Auto) 14 [place] % (Auto) 8 Eos % (Auto) 1 Baso % (Auto) 0 Neut # (Auto) 10.0 H Lymph # (Auto) 1.8 [place] # (Auto) 1.0 H Eos # (Auto) 0.1 Baso # (Auto) 0.0 Immature Gran # (Auto) 0.06 H Absolute Nucleated RBC 0.00 Immature Gran % 1 H Nucleated RBC % 0 Sodium 134 L Potassium 3.2 L D Chloride 95 L Carbon Dioxide 26.6 Anion Gap 12 BUN 44 H Creatinine 6.7 H* D Estim Creat Clear Calc 4.8 L eGFR 6 L* BUN/Creatinine Ratio 7 L Glucose 133 H Calculated Osmolality 281 Calcium 9.0 Corrected Calcium 9.6 Phosphorus 5.0 Albumin 3.2 L Quality Measures Quality Measures VTE prophylaxis Advance care planning discussed with:: patient Assessment & Plan Assessment Current Active Medications: Generic Name Dose Route Start Last Admin Trade Name Freq PRN Reason Stop Dose Admin Acetaminophen 650 mg 11/29/24 21:28 Acetaminophen 325 Mg Tablet PO 12/29/24 21:27 Q6H PRN Fever >100.5 and mild pain 1-3 Al Hydrox/Mg Hydrox/Simethicone 30 ml 12/02/24 10:33 Mg Hyd/Al Hyd/Ramon (Maalox Reg) Susp 30 Ml Udc PO 01/01/25 10:32 Q4HR PRN UPSET STOMACH/INDIGESTION Albuterol/Ipratropium 3 ml 11/30/24 01:00 12/03/24 06:23 Albuterol/Ipratropium (Duoneb) Rt Annika 3 Ml Nebu INH 12/30/24 00:59 3 ml Q6HRRT SABRINA Administration Apixaban 2.5 mg 12/02/24 09:00 12/03/24 08:00 Apixaban 2.5 Mg Tablet PO 01/01/25 08:59 2.5 mg BID SABRINA Administration Budesonide 0.25 mg 11/29/24 21:45 12/03/24 06:23 Budesonide Rt 0.25 Mg/2 Ml Nebu INH 12/29/24 21:44 0.25 mg BIDRT SABRINA Administration Hydromorphone HCl 0.5 mg 12/02/24 11:40 12/03/24 09:41 Hydromorphone Inj 2 Mg/Ml Vial IVP 12/04/24 21:32 0.5 mg Q3H PRN Administration Breakthrough, or prior to PT Labetalol HCl 10 mg 11/29/24 21:46 Labetalol Inj 5 Mg/Ml Vial 20 Ml IVP 12/29/24 21:41 Q3H PRN SBP >180mmHg Lidocaine 1 patch 12/01/24 09:00 Lidocaine 5% 1 Patch TOP 12/31/24 08:59 UD PRN PAIN Protocol Metoprolol Tartrate 12.5 mg 11/29/24 21:45 12/03/24 08:00 Metoprolol Tartrate 25 Mg Tablet PO 12/29/24 21:44 12.5 mg BID SABRINA Administration Metoprolol Tartrate 1 mg 12/01/24 14:41 Metoprolol Tartrate Inj 1 Mg/Ml Amp 5 Ml IVP Q5MIN PRN TACHYCARDIA Ondansetron HCl 4 mg 12/01/24 17:07 12/03/24 09:41 Ondansetron Inj 2 Mg/Ml Inj 2 Ml IV 12/31/24 17:06 4 mg Q6HR PRN Administration NAUSEA OR VOMITING Oxycodone/Acetaminophen 1 tab 12/02/24 11:40 Oxycodone/Apap 5/325 Tablet PO 12/04/24 21:32 Q4H PRN PAIN SCALE 4-10(Mod-Sev Pantoprazole Sodium 40 mg 11/30/24 09:00 12/03/24 08:00 Pantoprazole 40 Mg Tablet PO 12/30/24 08:59 40 mg QDAY SABRINA Administration Pharmacy Consult 1 each 11/29/24 21:47 Pharmacy Renal Dose Adjustment 1 Ea XX 12/29/24 21:46 PRN PRN CONSULT Polyethylene Glycol 17 gm 12/02/24 10:45 12/03/24 08:00 Polyethylene Glycol 17 Gm Packet PO 01/01/25 10:44 17 gm QDAY SABRINA Administration Sennosides 1 tab 12/02/24 10:45 12/03/24 08:00 Senna Tablet PO 01/01/25 10:44 1 tab BID SABRINA Administration Protocol Sevelamer Carbonate 800 mg 11/30/24 17:30 12/03/24 08:00 Sevelamer Carbonate 800 Mg Tablet PO 12/30/24 17:29 800 mg TIDWM SABRINA Administration Plan Assessment and plan: Summary: Ms. 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 #Preoperative cardiac risk assessment #Diastolic heart failure, EF 60%, 2019, NHYA class III #Moderate to severe aortic stenosis Patient presented status post ground-level mechanical fall, has right hip and right shoulder fracture, orthopedics consulted for cardiology clearance. Patient denied any dizziness, presyncope, loss of consciousness and mentions that she remembers the incident clearly. Patient does have murmur in aortic area, mitral area. Otherwise patient is on peritoneal dialysis, does have history of diastolic heart failure, was admitted to the hospital previously for CHF exacerbation. Patient does have shortness of breath on mild exertion, independent ADLs, walks using a walker at baseline, does have shortness of breath on activities of daily living, reports is able to walk about 50-60 steps without shortness of breath. Patient baseline METS less than 4 per history. EKG showed NSR with acute ST-T changes history of ischemia. Cholesterol 138, LDL 83, HDL 43, Triglycerides 58; Hemoglobin A1c 5.2%; TSH 0.41, free t4 1.29 Patient does not have any unstable or active arrhythmias. Patient does not have any history of any CAD does not have any acute ischemic heart disease symptoms or signs at the present point of time.? Patient does have history of diastoic heart failure and is not in overt heart failure at the present point of time No history of any diabetes mellitus requiring insulin Patient does have history of ESRD on PD with baseline creatinine greater than 2. Patient also has history of stroke with remote more than 15 years. As noted above, patient does not have any active cardiac conditions and his RCRI risk score is 0 with with a low risk of 3.9% risk of major adverse cardiac events Echo 11/30/2024: Normal LV size and function. EF 55-60%. Diastolic dysfunction present but cannot be graded. Normal RV size and function. Estimated RVSP moderately elevated RVSP 55 mm hg. Moderate to Severe . AV vmax 3.8 m/s, Mean PG 38 mm hg. LATRICE 0.5 sq cm. Severe posterior mac AND moderate anterior MAC with mild mitral stenosis mean PG 5 mm hg. Moderate to sevre MR. moderate TR and mild to moderate AI. Moderately dilated LA and mildly dilated RA. As noted above patient has moderate to severe aortic stenosis with a valve area of 0.5 cm? by the V-max is only 3.8 m/s and mean PG 38 mmHg along with a history of moderate PAH, mild mitral stenosis, moderate to severe MR, moderate TR which makes her high risk for the above surgery but not a primary diuresis as patient does not have critical aortic stenosis and the V-max is still 4 m/s with normal LVEF. Her overall EF is normal at 55 to 60% with normal RV function RVSP is only estimated to be in moderately increased at 55 mmHg. Discussed with orthopedic surgeon Dr. Ramirez as well as the anesthesiologist Dr. Mendes and the patient's daughter Jorge about the high cardiac risk for the surgery and the she will need further evaluation of her valvular heart disease but cannot be done in emergently as she is not a surgical AVR candidate and will need complete evaluation for TAVR as outpatient, The patient needs an orthopedic surgery which is considered urgent and emergent for her at present point of time -should proceed with surgery as long as the patient, family as well as the surgeon agreed that she is at high risk of the surgery with higher incidence of complications given her age and comorbidities including end-stage renal disease and heart disease, diastolic heart failure Recommendations: -Patient is status post surgery without any cardiac applications., will continue to monitor -Will need close outpatient follow-up, follow-up in clinic 1 to 2 weeks after discharge #Right Hip Fracture (Acute impacted right subcapital fracture) status post Synthes implant, 2 hole plate 12/01/2024 #Right Shoulder Fracture (Acute humeral head and neck fracture) status post closed reduction treatment 12/01/2024 #Status post ground-level mechanical fall Patient presented status post ground-level mechanical fall, has right hip and right shoulder fracture, orthopedics consulted for cardiology clearance. Patient denied any dizziness, presyncope, loss of consciousness and mentions that she remembers the incident clearly. Humerus x-ray shows acute fractures humeral head and neck (comminuted fracture and humeral head through greater tuberosity) Shoulder x-ray acute fracture of humeral head and neck Pelvis CT shows acute impacted right subcapital hip fracture Patient is postop day 1 status post Synthes implant femoral neck right hip fracture with 2 hole plate and closed treatment of fracture of neck and head of right humerus by orthopedics. Patient had the procedure without any complications. -Patient on Eliquis 2.5 twice daily for DVT prophylaxis #Hyperlipidemia Lipid panel shows cholesterol 138, LDL 83, HDL 43, triglycerides 58 -Consider resuming home dose atorvastatin 40 mg daily #Hypertension Patient on metoprolol tartrate at home for blood pressure management, resumed by primary team. #Asthma On DuoNeb breathing treatment, resumed budesonide. Patient complaining of mild shortness of breath is on Ventolin and Breztri inhaler at home. #End-stage renal disease on peritoneal dialysis #Donna's Granulomatosis, diagnosed 25 years ago End-stage renal disease on peritoneal dialysis secondary to Antonia's for the past 3 to 4 years Nephrology consult following patient closely #History of CVA, 15 years ago #Osteoarthritis, Osteoporosis #GERD Thank you for the consult and allowing to participate in the care of the patient. Cardiology will continue to follow. Case discussed with Attending Dr. Olivares. Misha Mcgowan PGY1 Disclaimer: This note was dictated by speech recognition. Minor errors in motion picture set up worker may be present due to voice recognition software. Attending Provider Attestation/Addendum I have personally seen and examined the patient separately on the above date of service and discussed the plan of care with the resident. I reviewed the resident Dr. Misha Mcgowan consultation progress note and agree with the resident findings and plan in the note above and have also edited the documentation to reflect my findings and plan. Jori Olivares M.D. Interventional Cardiology
--- NOTE | 2024-12-03 10:40 | PD.RESPRO ---
Documentation for date of: 12/03/24 Subjective Subjective Interval history: Patient seen and examined at bedside this morning. She is postop day 2. No acute overnight events. Encouraging patient to participate in PT, as she continues to have significant pain at both hip and shoulder fracture sites. Discussed with PT and RN regarding adequate antinausea/pain control prior to PT. Patient also has not had a bowel movement, will add Movantik. She underwent PD with 1.5 L via cycler, which was much better tolerated. She feels occasional SOB and would like a breathing treatment regimen similar to her home Breztri. Will adjust breathing treatments and additionally add as needed treatments. Vitals, labs reviewed. Sats 99% on room air WBC downtrending, mild decrease in hemoglobin however no obvious bleed noted. CHEM panel consistent with ESRD labs. Patient will need home health PT on discharge. Exam Vital Signs Temp Pulse Resp BP Pulse Ox O2 Del Method O2 Flow Rate 97.6 F 82 19 131/65 H 97 Room Air 1 12/03/24 08:23 12/03/24 08:23 12/03/24 08:23 12/03/24 08:00 12/03/24 08:00 12/03/24 08:00 12/02/24 08:00 Narrative Exam Gen: AAOx3, in significant distress due to pain; pleasant to speak with and answers all questions appropriately HEENT: NCAT, MMM, no LAD appreciated CVS: normal S1, S2. RRR. Systolic murmur at R 2nd ICS Resp: CTA B/L. No rhonchi, rales, crackles or wheezing Abd: soft, non-tender, non-distended. BS+ in all 4 quadrants MSK: Dec ROM in R extremities; R leg TTP at hip, dressing clean without erythema or bleed; R arm in sling Neuro: CN II-XII grossly intact but not formally tested; no sensory loss in RLE, able to move toes Objective Labs 12/04/24 04:20 12/04/24 04:20 Labs: Laboratory Results - last 24 hr 12/03/24 05:34 WBC 13.0 H RBC 2.83 L Hgb 8.5 L Hct 24.5 L MCV 87 MCH 30.0 MCHC 34.7 RDW Std Deviation 49.1 H Plt Count 333 Neut % (Auto) 77 Lymph % (Auto) 14 [place] % (Auto) 8 Eos % (Auto) 1 Baso % (Auto) 0 Neut # (Auto) 10.0 H Lymph # (Auto) 1.8 [place] # (Auto) 1.0 H Eos # (Auto) 0.1 Baso # (Auto) 0.0 Immature Gran # (Auto) 0.06 H Absolute Nucleated RBC 0.00 Immature Gran % 1 H Nucleated RBC % 0 Sodium 134 L Potassium 3.2 L D Chloride 95 L Carbon Dioxide 26.6 Anion Gap 12 BUN 44 H Creatinine 6.7 H* D Estim Creat Clear Calc 4.8 L eGFR 6 L* BUN/Creatinine Ratio 7 L Glucose 133 H Calculated Osmolality 281 Calcium 9.0 Corrected Calcium 9.6 Phosphorus 5.0 Albumin 3.2 L Quality Measures Quality Measures VTE prophylaxis Advance care planning discussed with:: patient and child Assessment & Plan Assessment Current Active Medications: Generic Name Dose Route Start Last Admin Trade Name Freq PRN Reason Stop Dose Admin Acetaminophen 650 mg 11/29/24 21:28 Acetaminophen 325 Mg Tablet PO 12/29/24 21:27 Q6H PRN Fever >100.5 and mild pain 1-3 Al Hydrox/Mg Hydrox/Simethicone 30 ml 12/02/24 10:33 Mg Hyd/Al Hyd/Ramon (Maalox Reg) Susp 30 Ml Udc PO 01/01/25 10:32 Q4HR PRN UPSET STOMACH/INDIGESTION Albuterol/Ipratropium 3 ml 11/30/24 01:00 12/03/24 06:23 Albuterol/Ipratropium (Duoneb) Rt Annika 3 Ml Nebu INH 12/30/24 00:59 3 ml Q6HRRT SABRINA Administration Apixaban 2.5 mg 12/02/24 09:00 12/03/24 08:00 Apixaban 2.5 Mg Tablet PO 01/01/25 08:59 2.5 mg BID SABRINA Administration Budesonide 0.25 mg 11/29/24 21:45 12/03/24 06:23 Budesonide Rt 0.25 Mg/2 Ml Nebu INH 12/29/24 21:44 0.25 mg BIDRT SABRINA Administration Hydromorphone HCl 0.5 mg 12/02/24 11:40 12/03/24 09:41 Hydromorphone Inj 2 Mg/Ml Vial IVP 12/04/24 21:32 0.5 mg Q3H PRN Administration Breakthrough, or prior to PT Labetalol HCl 10 mg 11/29/24 21:46 Labetalol Inj 5 Mg/Ml Vial 20 Ml IVP 12/29/24 21:41 Q3H PRN SBP >180mmHg Lidocaine 1 patch 12/01/24 09:00 Lidocaine 5% 1 Patch TOP 12/31/24 08:59 UD PRN PAIN Protocol Metoprolol Tartrate 12.5 mg 11/29/24 21:45 12/03/24 08:00 Metoprolol Tartrate 25 Mg Tablet PO 12/29/24 21:44 12.5 mg BID SABRINA Administration Metoprolol Tartrate 1 mg 12/01/24 14:41 Metoprolol Tartrate Inj 1 Mg/Ml Amp 5 Ml IVP Q5MIN PRN TACHYCARDIA Ondansetron HCl 4 mg 12/01/24 17:07 12/03/24 09:41 Ondansetron Inj 2 Mg/Ml Inj 2 Ml IV 12/31/24 17:06 4 mg Q6HR PRN Administration NAUSEA OR VOMITING Oxycodone/Acetaminophen 1 tab 12/02/24 11:40 Oxycodone/Apap 5/325 Tablet PO 12/04/24 21:32 Q4H PRN PAIN SCALE 4-10(Mod-Sev Pantoprazole Sodium 40 mg 11/30/24 09:00 12/03/24 08:00 Pantoprazole 40 Mg Tablet PO 12/30/24 08:59 40 mg QDAY SABRINA Administration Pharmacy Consult 1 each 11/29/24 21:47 Pharmacy Renal Dose Adjustment 1 Ea XX 12/29/24 21:46 PRN PRN CONSULT Polyethylene Glycol 17 gm 12/02/24 10:45 12/03/24 08:00 Polyethylene Glycol 17 Gm Packet PO 01/01/25 10:44 17 gm QDAY SABRINA Administration Sennosides 1 tab 12/02/24 10:45 12/03/24 08:00 Senna Tablet PO 01/01/25 10:44 1 tab BID SABRINA Administration Protocol Sevelamer Carbonate 800 mg 11/30/24 17:30 12/03/24 08:00 Sevelamer Carbonate 800 Mg Tablet PO 12/30/24 17:29 800 mg TIDWM SABRINA Administration Plan Patient is an 84-year-old female with HTN, HLD, HFpEF (EF 60% in 2019), ESRD on peritoneal dialysis, history of CVA who was admitted after a GLF in which she sustained a right hip fracture and right shoulder fracture. She is pending surgical repair with orthopedics for right hip fracture, and requires cardiac clearance. Nephrology consulted for inpatient peritoneal dialysis. #Right hip fracture, s/p FNS on 12/01, POD2 #Right shoulder fracture, s/p CRIF on 12/01 GLF after tripping on her slippers while at daughter's home. No LOC. Patient is visiting from [place]. Head CT was negative for acute pathology. Hip x-ray & pelvis CT revealed acute impacted right subcapital hip fracture Shoulder and humerus x-ray revealed acute fractures of the humeral head and neck Shoulder fracture placed in sling; =>CRIF Orthopedics consulted for surgical repair of right hip fracture Cardiology consulted for clearance: METS <4, RCRI 0 points => high risk surgery with cardiology follow up Echo: Normal LV & RV size and function. EF 55-60%. Diastolic dysfunction present but cannot be graded. Moderately elevated RVSP 55 mmHg. Moderate to severe aortic stenosis with a V-max 3.8 m/s. Severe posterior MAC and moderate anterior MAC with mild mitral stenosis. Moderate to severe MR. Moderate TR. Mild to moderate AI. Moderately dilated LA LA and mildly dilated RA -Pain control with acetaminophen and oxycodone; Dilaudid for breakthrough pain or prior to physical therapy?will give Zofran prior to Dilaudid -Physical therapy ordered; home health with PT on DC -Eliquis 2.5 mg twice daily for DVT prophylaxis -Encouraged to use IS to prevent post-op atelectasis #Constipation #Gastritis Started aggressive bowel regimen with scheduled senna twice daily, MiraLAX daily; added Movantik to prevent opioid induced constipation Maalox as needed 4 times daily for gastritis #SOB, resolved, off oxygen Overnight (11/30-) patient became SOB, desatted into 80s with improvement on NC and after PD CXR consistent with vascular congestion, mild CHF picture. DDx: Fluid overload state from IV fluids vs 2L PD cycler (family uses 1.5L at home) vs progression of Antonia's CT chest & ANCA+ in [place]; will see if we can get the results via patient portal from patient's son -Will likely need outpatient pulm follow up -Will adjust breathing treatments to match home Breztri inhaler #HTN #?HFpEF (EF 55-60%), not in acute exacerbation SBP fairly normal for patient's age, with pain likely contributing to elevation Continue with pain management See echo results above Cardiology following, appreciate recs -Resumed patient's home metoprolol to prevent rebound tachycardia; prn labetalol #Aortic stenosis, moderate-severe Murmur appreciated; and seen on echo Cardiology following; maintain euvolemic state Recommend to have cardiology follow up outpatient #ESRD on PD #Antonia's granulomatosis Labs consistent with ESRD Nephro consulted, appreciate recommendations: Peritoneal dialysis session - 1.5L wash via cycler Sevelamer 800 mg 3 times daily for hyperphosphatemia Avoid nephrotoxic medications when possible and renally dose medication #History of CVA #HLD Will resume home atorvastatin Dispo: POD2, S/p hip fracture repair/reduction of shoulder fracture; starting physical therapy; continue PD per nephro; Home health with PT on discharge when stable GI PPx: Protonix, as needed Maalox DVT PPx: Eliquis 2.5 mg twice daily Diet: Renal, Nepro CODE STATUS: Full code Patient seen and care discussed with my attending Dr. Hernandez. Leandra Burgess MD PGY-3 Attending Provider Attestation/Addendum I reviewed labs, imaging, EKG, home medications and prior available records. Face to face evaluation was performed by me. I have personally examined the patient and discussed assessment and plan with the IM team. I reviewed the resident note and agree with the plan with exceptions as below. Impacted right subcapital hip fracture Right shoulder fracture ESRD on peritoneal dialysis Essential hypertension Leukocytosis Status post internal fixation on 12/01 Management of pain as needed: She has significant side effects (nausea/vomiting) from Dilaudid but has allergy to NSAIDs. Discussed with daughter who is a physician and was okay with trying celecoxib after discussion of risks versus benefits. See event note Started Eliquis 2.5 mg twice daily PT evaluation after OR: Recommended home with home health Ordered hospital bed, wheelchair, and bedside commode. Discussed with protective services social worker Ordered home health Right shoulder sling. No surgical intervention needed Trend WBC: Downtrending Consulted nephrology for dialysis recommendations: Started peritoneal dialysis. Will transition to [facility] in [place] Resumed home metoprolol. Monitor BP Constipation management with senna and MiraLAX
--- NOTE | 2024-12-03 11:07 | PC.SS ---
Addendum entered by Jo Junior 12/03/24 11:43: SS follow up note; Patient's daughter reported that patient will need to be established with outpatient Dialysis, however is established with [facility] and would like for [facility] to continue following patient. SS will need to contact [facility] [place] office to virify if they are able to transfer all records to [facility] in [place]. Original Note: SS follow up note; SS contacted patient's daughter in regards to patient not being established with a primary Dr. SS will contact [facility] tomorrow to schedule an appointment that way HH agency could follow patient, SS contacted Adelita and informed her that will schedule patient an appointment at the [facility]. SS will contact patient's daughter to update her.
[2024-12-03] MEDS: NALOXEGOL OXALATE 25 MG TABLET (NON-FORMULARY) 12.5 MG PO (11:25)
--- NOTE | 2024-12-03 12:37 | PC.CM ---
Patient does not have a PCP. As per SS, patient will be moving to this area to be with family. nutritional services cook will [facility] is [facility]. We should send referal to [facility] because they have worked with us in the past with patients that have not been established with a PCP. nutritional services cook is aware of discharge plan.
--- NOTE | 2024-12-03 17:52 | PD.RESEVENT ---
Documentation for date of: 12/03/24 Event Note Event Note: Updated patient's daughter on patient's condition/progress, as she was not able to leave work today and visit her mother. We also discussed multimodal pain management options, including Tylenol, Percocet and Dilaudid, especially as Dilaudid has been making the patient vomit/feel nauseous. Patient's daughter requested for a Armstrong 2 inhibitor (Celebrex) as an intermediate option, if Tylenol is not working, without having to use a controlled substance (Percocet). We discussed the risks and benefits of Celebrex, such as the risk of a bleed/hematoma in the setting of ESRD on peritoneal dialysis & using Eliquis for VTE prophylaxis post surgical repair. Additionally, patient has had swelling when receiving NSAIDs in the past. Daughter states that patient has taken NSAIDs in the past as well without any allergic reaction. We discussed the possibility of trying Celebrex while the patient is admitted under a controlled environment, with rescue options available. Discussed risks and benefits with inpatient pharmacy, and at this time, we will plan for 100 mg capsule of Celebrex on 12/04 morning. We will have epinephrine and Solu-Medrol as PRNs, in case patient develops an allergic reaction. Type/screen ordered in the event patient develops a bleed, and requires transfusion. We will also discuss risks and benefits with the patient, who ultimately will make the final decision. Patient care discussed with my attending Dr. Hernandez. Leandra Burgess MD PGY-3
--- NOTE | 2024-12-03 19:46 | PD.RESPRO ---
Documentation for date of: 12/03/24 Subjective Subjective Interval history: Patient examined at bedside. Post op day 2. She continues to have severe pain in shoulder. Hip pain is bearable. She is tolerating PD well after changing fill from 2L to 1.5L. Patient denies any SOB. Will continue with PD nightly. Labs reviwed. Sodium 134, potassium 3.2, Improvement in Cr to 6.7, GFR 6. Continue with PD nightly. Will continue to closely monitor. Exam Vital Signs Temp Pulse Resp BP Pulse Ox O2 Del Method O2 Flow Rate 97.0 F 90 18 143/64 H 97 Room Air 1 12/03/24 16:00 12/03/24 16:00 12/03/24 16:00 12/03/24 16:12/03/24 16:12/03/24 16:12/02/24 08:00 Narrative Exam GEN: AOx3, able to speak full sentences however patient was in pain, HEENT: NC/AC, oral mucosa moist, neck supple CVS: RRR, S1-S2 present, positive murmur in aortic area, pulmonic area and mitral area. RESP: cannot assess, patient not able to move GI: soft,non distended, non tender, NBS MSK: Right shoulder and right hip has limited mobility, severe tenderness, right arm sling SKIN: warm and dry OUTER DIAMETER GRINDER TOOL: CN II-XII and Sensation grossly intact. Objective Labs 12/06/24 04:35 12/06/24 04:35 Labs: Laboratory Results - last 24 hr 11/30/24 12/03/24 12/03/24 14:55 05:34 17:50 WBC 13.0 H RBC 2.83 L Hgb 8.5 L Hct 24.5 L MCV 87 MCH 30.0 MCHC 34.7 RDW Std Deviation 49.1 H Plt Count 333 Neut % (Auto) 77 Lymph % (Auto) 14 [place] % (Auto) 8 Eos % (Auto) 1 Baso % (Auto) 0 Neut # (Auto) 10.0 H Lymph # (Auto) 1.8 [place] # (Auto) 1.0 H Eos # (Auto) 0.1 Baso # (Auto) 0.0 Immature Gran # (Auto) 0.06 H Absolute Nucleated RBC 0.00 Immature Gran % 1 H Nucleated RBC % 0 Sodium 134 L Potassium 3.2 L D Chloride 95 L Carbon Dioxide 26.6 Anion Gap 12 BUN 44 H Creatinine 6.7 H* D Estim Creat Clear Calc 4.8 L eGFR 6 L* BUN/Creatinine Ratio 7 L Glucose 133 H Calculated Osmolality 281 Calcium 9.0 Corrected Calcium 9.6 Phosphorus 5.0 Albumin 3.2 L Blood Type AB Positive Antibody Screen NEGATIVE Crossmatch See Detail Blood Bank Wristband ID Yes Quality Measures Quality Measures VTE prophylaxis Advance care planning discussed with:: other Assessment & Plan Assessment Current Active Medications: Generic Name Dose Route Start Last Admin Trade Name Freq PRN Reason Stop Dose Admin Acetaminophen 650 mg 11/29/24 21:28 Acetaminophen 325 Mg Tablet PO 12/29/24 21:27 Q6H PRN Fever >100.5 and mild pain 1-3 Al Hydrox/Mg Hydrox/Simethicone 30 ml 12/02/24 10:33 Mg Hyd/Al Hyd/Ramon (Maalox Reg) Susp 30 Ml Udc PO 01/01/25 10:32 Q4HR PRN UPSET STOMACH/INDIGESTION Albuterol/Ipratropium 3 ml 11/30/24 01:00 12/03/24 12:46 Albuterol/Ipratropium (Duoneb) Rt Annika 3 Ml Nebu INH 12/30/24 00:59 3 ml Q6HRRT SABRINA Administration Apixaban 2.5 mg 12/02/24 09:00 12/03/24 08:00 Apixaban 2.5 Mg Tablet PO 01/01/25 08:59 2.5 mg BID SABRINA Administration Budesonide 0.25 mg 11/29/24 21:45 12/03/24 06:23 Budesonide Rt 0.25 Mg/2 Ml Nebu INH 12/29/24 21:44 0.25 mg BIDRT SABRINA Administration Celecoxib 100 mg 12/04/24 09:00 Celecoxib 100 Mg Capsule PO 12/05/24 08:59 X1 PRN SEE COMMENTS Hydromorphone HCl 0.5 mg 12/02/24 11:40 12/03/24 16:58 Hydromorphone Inj 2 Mg/Ml Vial IVP 12/04/24 21:32 0.5 mg Q3H PRN Administration Breakthrough, or prior to PT Labetalol HCl 10 mg 11/29/24 21:46 Labetalol Inj 5 Mg/Ml Vial 20 Ml IVP 12/29/24 21:41 Q3H PRN SBP >180mmHg Lidocaine 1 patch 12/01/24 09:00 Lidocaine 5% 1 Patch TOP 12/31/24 08:59 UD PRN PAIN Protocol Metoprolol Tartrate 12.5 mg 11/29/24 21:45 12/03/24 08:00 Metoprolol Tartrate 25 Mg Tablet PO 12/29/24 21:44 12.5 mg BID SABRINA Administration Metoprolol Tartrate 1 mg 12/01/24 14:41 Metoprolol Tartrate Inj 1 Mg/Ml Amp 5 Ml IVP Q5MIN PRN TACHYCARDIA Naloxegol 12.5 mg 12/03/24 10:45 12/03/24 11:25 Naloxegol Oxalate 25 Mg Tablet (Non-Formulary) PO 01/02/25 10:44 12.5 mg QDAY SABRINA Administration Ondansetron HCl 4 mg 12/01/24 17:07 12/03/24 16:51 Ondansetron Inj 2 Mg/Ml Inj 2 Ml IV 12/31/24 17:06 4 mg Q6HR PRN Administration NAUSEA OR VOMITING Oxycodone/Acetaminophen 1 tab 12/02/24 11:40 Oxycodone/Apap 5/325 Tablet PO 12/04/24 21:32 Q4H PRN PAIN SCALE 4-10(Mod-Sev Pantoprazole Sodium 40 mg 11/30/24 09:00 12/03/24 08:00 Pantoprazole 40 Mg Tablet PO 12/30/24 08:59 40 mg QDAY SABRINA Administration Pharmacy Consult 1 each 11/29/24 21:47 Pharmacy Renal Dose Adjustment 1 Ea XX 12/29/24 21:46 PRN PRN CONSULT Polyethylene Glycol 17 gm 12/02/24 10:45 12/03/24 08:00 Polyethylene Glycol 17 Gm Packet PO 01/01/25 10:44 17 gm QDAY SABRINA Administration Sennosides 1 tab 12/02/24 10:45 12/03/24 08:00 Senna Tablet PO 01/01/25 10:44 1 tab BID SABRINA Administration Protocol Sevelamer Carbonate 800 mg 11/30/24 17:30 12/03/24 16:44 Sevelamer Carbonate 800 Mg Tablet PO 12/30/24 17:29 800 mg TIDWM SABRINA Administration Plan Tho Lee is 84 yr female with PMH of hypertension, ESRD on peritoneal dialysis, hyperlipidemia, previous stroke, asthma, suspected diastolic dysfunction with ejection fraction 60%, 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 Nephrology consulted for ESRD. #ESRD on Peritoneal Dialysis ESRD on peritoneal dialysis since past ~ 3?4 years. Admission labs Cr 7, BUN 28, GFR 5, Na 130, K 3., Po4 6.3.. Patient follows with a campus security officer Dr. Virk in [place]. -sevelemer 800mg TID -peritoneal dialysis nightly with 1500mL - Monitor electrolytes and volume status - Avoid nephrotoxic medications; dose-adjust meds as needed -dilaudid/Tylenol for pain control with zofran #Right Hip Fracture (Acute impacted right subcapital fracture) #Right Shoulder Fracture (Acute humeral head and neck fracture) #Hypertension #Anemia #Leukocytosis most likely reactive The patient's management plan was discussed with my attending physician Dr. Amezcua. Edna Hsu, PGY-1 Attending Provider Attestation/Addendum Pt is seen and examined. Lans and other investigations reviewed. Agree with assessment and plan and finding by resident. Temo Amezcua MD
[2024-12-04] VITALS (18 sets, daily range): BP systolic 124–168; BP diastolic 69–90; PULSE 78–103; RESP 12–98; TEMP 36.1–36.7; O2SAT 95–100; BMI 12.0
[2024-12-04] MEDS: ALBUTEROL/IPRATROPIUM (Duoneb) RT SOL 3 ML NEBU INH ×4 (01:06→18:55)
[2024-12-04 05:41] LABS: Basophils % (Auto) 0 % (0-2.5); Eosinophils # (Auto) 0.3 Thou/mm3 (0.0-0.5); Eosinophils % (Auto) 2 % (0-10); Hematocrit 23.4 % (36.0-46.0); Immature Granulocytes % (Auto) 1 % (0-0); Immature Granulocytes Auto 0.09 Thou/mm3 (0.00-0.00); Lymphocytes # (Auto) 2.1 Thou/mm3 (1.0-4.8); Lymphocytes % (Auto) 18 % (10-50); Mean Corpuscular HGB Conc 33.8 g/dl (31.0-37.0); Mean Corpuscular Hemoglobin 30.2 pg (25.0-35.0); Mean Corpuscular Volume 89 fL (80-100); Monocytes % (Auto) 9 % (0-12); Neutrophils # (Auto) 8.1 Thou/mm3 (1.8-7.7); Neutrophils % (Auto) 70 % (37-80); Nucleated Red Blood Cell % 0 /100 WBC (0); Platelet Count 316 Thou/mm3 (140-440); RDW Standard Deviation 49.1 fL (36.4-46.3); Red Blood Count 2.62 Miln/mm3 (4.00-5.20); White Blood Count 11.5 Thou/mm3 (3.6-11.0)
[2024-12-04 05:51] LABS: Hemoglobin 7.9 g/dL (12.0-16.0)
[2024-12-04 06:22] LABS: Albumin, Serum 3.1 gm/dL (3.4-4.8); Anion Gap 14 (7-16); BUN/Creatinine Ratio 8 Ratio (12-20); Blood Urea Nitrogen 46 mg/dL (9-23); Calcium 9.2 mg/dL (8.3-10.6); Calcium (Corrected) 9.9 mg/dL (8.5-10.1); Carbon Dioxide 24.7 mMol/L (20.0-31.0); Chloride 92 mMol/L (98-107); Creatinine (Component) 6.1 mg/dL (0.6-1.3); Estimated Creatinine Clearance 5.3 mL/min (>60); Glucose 108 mg/dL (74-106); Osmolality,Calculated 275 (275-295); Phosphorous 3.6 mg/dL (2.4-5.1); Potassium 3.3 mMol/L (3.4-5.1); Sodium 131 mMol/L (136-145); eGFR 6 See Note
[2024-12-04] MEDS: BUDESONIDE RT 0.25 MG/2 ML NEBU INH ×2 (06:47→18:55)
--- NOTE | 2024-12-04 08:02 | ESPR_ITS ---
Documentation for date of: 12/04/24 Subjective Subjective Interval history: Patient seen and examined at bedside this morning. No acute overnight events. POD3. Vitals stable, labs reviewed. WBC downtrending. Chem panel unremarkable. Patient endorses tolerating her diet much better. She also endorses improved nausea from dilaudid, as zofran is helping. Her pain is minimal when she is not moving or being touched at R shoulder/R hip, however does have severe pain when mobilizing/PT. Will continue PT and give dilaudid/zofran prior. Encouraged her to use IS for occasional SOB, which has improved with breathing treatments. There was a discussion regarding celebrex trial while inpatient, however patient refused celebrex, therefore will DC order, and continue oxycodone on discharge for pain control. Additionally, patient has not had a BM during admission, and is on senna BID/miralax/movantik, will add mineral oil enema. Patient & son-in-law at bedside were updated on the plan, and all questions were answered to their satisfaction. Exam Vital Signs Temp Pulse Resp BP Pulse Ox O2 Del Method O2 Flow Rate 97.7 F 85 18 153/72 H 99 Room Air 1 12/04/24 07:43 12/04/24 07:43 12/04/24 07:43 12/04/24 07:43 12/04/24 07:43 12/04/24 07:43 12/02/24 08:00 Narrative Exam Gen: AAOx3, in significant distress due to pain; pleasant to speak with and answers all questions appropriately HEENT: NCAT, MMM, no LAD appreciated CVS: normal S1, S2. RRR. Systolic murmur at R 2nd ICS Resp: CTA B/L. No rhonchi, rales, crackles or wheezing Abd: soft, non-tender, non-distended. BS+ in all 4 quadrants MSK: Dec ROM in R extremities; R leg TTP at hip, dressing clean without erythema or bleed; R arm in sling Neuro: CN II-XII grossly intact but not formally tested; no sensory loss in RLE, able to move toes Objective Labs 12/05/24 05:32 12/05/24 05:32 Labs: Laboratory Results - last 24 hr 11/30/24 12/03/24 12/04/24 14:55 17:50 04:20 WBC 11.5 H RBC 2.62 L Hgb 7.9 L Hct 23.4 L MCV 89 MCH 30.2 MCHC 33.8 RDW Std Deviation 49.1 H Plt Count 316 Neut % (Auto) 70 Lymph % (Auto) 18 [place] % (Auto) 9 Eos % (Auto) 2 Baso % (Auto) 0 Neut # (Auto) 8.1 H Lymph # (Auto) 2.1 [place] # (Auto) 1.0 H Eos # (Auto) 0.3 Baso # (Auto) 0.0 Immature Gran # (Auto) 0.09 H Absolute Nucleated RBC 0.00 Immature Gran % 1 H Nucleated RBC % 0 Sodium 131 L Potassium 3.3 L Chloride 92 L Carbon Dioxide 24.7 Anion Gap 14 BUN 46 H Creatinine 6.1 H* D Estim Creat Clear Calc 5.3 L eGFR 6 L* BUN/Creatinine Ratio 8 L Glucose 108 H Calculated Osmolality 275 Calcium 9.2 Corrected Calcium 9.9 Phosphorus 3.6 Albumin 3.1 L Blood Type AB Positive Antibody Screen NEGATIVE Crossmatch See Detail Blood Bank Wristband ID Yes Quality Measures Quality Measures VTE prophylaxis Advance care planning discussed with:: patient and child Assessment & Plan Assessment Current Active Medications: Generic Name Dose Route Start Last Admin Trade Name Freq PRN Reason Stop Dose Admin Acetaminophen 650 mg 11/29/24 21:28 Acetaminophen 325 Mg Tablet PO 12/29/24 21:27 Q6H PRN Fever >100.5 and mild pain 1-3 Al Hydrox/Mg Hydrox/Simethicone 30 ml 12/02/24 10:33 Mg Hyd/Al Hyd/Ramon (Maalox Reg) Susp 30 Ml Udc PO 01/01/25 10:32 Q4HR PRN UPSET STOMACH/INDIGESTION Albuterol/Ipratropium 3 ml 11/30/24 01:00 12/04/24 06:47 Albuterol/Ipratropium (Duoneb) Rt Annika 3 Ml Nebu INH 12/30/24 00:59 3 ml Q6HRRT SABRINA Administration Apixaban 2.5 mg 12/02/24 09:00 12/03/24 21:14 Apixaban 2.5 Mg Tablet PO 01/01/25 08:59 2.5 mg BID SABRINA Administration Budesonide 0.25 mg 11/29/24 21:45 12/04/24 06:47 Budesonide Rt 0.25 Mg/2 Ml Nebu INH 12/29/24 21:44 0.25 mg BIDRT SABRINA Administration Celecoxib 100 mg 12/04/24 09:00 Celecoxib 100 Mg Capsule PO 12/05/24 08:59 X1 PRN SEE COMMENTS Diphenhydramine HCl 25 mg 12/04/24 07:53 Diphenhydramine Inj 50 Mg/Ml Vial IVP X1 PRN ALLERGY Protocol Epinephrine HCl 0.5 mg 12/04/24 07:53 Epinephrine Inj 1 Mg/Ml Amp IM Q5MIN PRN ALLERGY Protocol Hydromorphone HCl 0.5 mg 12/02/24 11:40 12/03/24 16:58 Hydromorphone Inj 2 Mg/Ml Vial IVP 12/04/24 21:32 0.5 mg Q3H PRN Administration Breakthrough, or prior to PT Labetalol HCl 10 mg 11/29/24 21:46 Labetalol Inj 5 Mg/Ml Vial 20 Ml IVP 12/29/24 21:41 Q3H PRN SBP >180mmHg Lidocaine 1 patch 12/01/24 09:00 Lidocaine 5% 1 Patch TOP 12/31/24 08:59 UD PRN PAIN Protocol Methylprednisolone Sodium Succinate 60 mg 12/04/24 07:53 Methylprednisolone Sod Succ 40 Mg Vial IVP X1 PRN ALLERGY Protocol Metoprolol Tartrate 12.5 mg 11/29/24 21:45 12/03/24 21:14 Metoprolol Tartrate 25 Mg Tablet PO 12/29/24 21:44 12.5 mg BID SABRINA Administration Metoprolol Tartrate 1 mg 12/01/24 14:41 Metoprolol Tartrate Inj 1 Mg/Ml Amp 5 Ml IVP Q5MIN PRN TACHYCARDIA Naloxegol 12.5 mg 12/03/24 10:45 12/03/24 11:25 Naloxegol Oxalate 25 Mg Tablet (Non-Formulary) PO 01/02/25 10:44 12.5 mg QDAY SABRINA Administration Ondansetron HCl 4 mg 12/01/24 17:07 12/03/24 16:51 Ondansetron Inj 2 Mg/Ml Inj 2 Ml IV 12/31/24 17:06 4 mg Q6HR PRN Administration NAUSEA OR VOMITING Oxycodone/Acetaminophen 1 tab 12/02/24 11:40 Oxycodone/Apap 5/325 Tablet PO 12/04/24 21:32 Q4H PRN PAIN SCALE 4-10(Mod-Sev Pantoprazole Sodium 40 mg 11/30/24 09:00 12/03/24 08:00 Pantoprazole 40 Mg Tablet PO 12/30/24 08:59 40 mg QDAY SABRINA Administration Pharmacy Consult 1 each 11/29/24 21:47 Pharmacy Renal Dose Adjustment 1 Ea XX 12/29/24 21:46 PRN PRN CONSULT Polyethylene Glycol 17 gm 12/02/24 10:45 12/03/24 08:00 Polyethylene Glycol 17 Gm Packet PO 01/01/25 10:44 17 gm QDAY SABRINA Administration Sennosides 1 tab 12/02/24 10:45 12/03/24 21:14 Senna Tablet PO 01/01/25 10:44 1 tab BID SABRINA Administration Protocol Sevelamer Carbonate 800 mg 11/30/24 17:30 12/03/24 16:44 Sevelamer Carbonate 800 Mg Tablet PO 12/30/24 17:29 800 mg TIDWM SABRINA Administration Plan Patient is an 84-year-old female with HTN, HLD, HFpEF (EF 60% in 2019), ESRD on peritoneal dialysis, history of CVA who was admitted after a GLF in which she sustained a right hip fracture and right shoulder fracture. She is pending surgical repair with orthopedics for right hip fracture, and requires cardiac clearance. Nephrology consulted for inpatient peritoneal dialysis. #Right hip fracture, s/p FNS on 12/01, POD3 #Right shoulder fracture, s/p CRIF on 12/01 GLF after tripping on her slippers while at daughter's home. No LOC. Patient is visiting from [place]. Head CT was negative for acute pathology. Hip x-ray & pelvis CT revealed acute impacted right subcapital hip fracture Shoulder and humerus x-ray revealed acute fractures of the humeral head and neck Shoulder fracture placed in sling; =>CRIF Orthopedics consulted for surgical repair of right hip fracture Cardiology consulted for clearance: METS <4, RCRI 0 points => high risk surgery with cardiology follow up Echo: Normal LV & RV size and function. EF 55-60%. Diastolic dysfunction present but cannot be graded. Moderately elevated RVSP 55 mmHg. Moderate to severe aortic stenosis with a V-max 3.8 m/s. Severe posterior MAC and moderate anterior MAC with mild mitral stenosis. Moderate to severe MR. Moderate TR. Mild to moderate AI. Moderately dilated LA LA and mildly dilated RA -Pain control with acetaminophen and oxycodone; Dilaudid for breakthrough pain or prior to physical therapy?will give Zofran prior to Dilaudid -Physical therapy ordered; home health with PT on DC -Eliquis 2.5 mg twice daily for DVT prophylaxis -Encouraged to use IS to prevent post-op atelectasis #Constipation #Gastritis Started aggressive bowel regimen with scheduled senna twice daily, MiraLAX daily; added Movantik to prevent opioid induced constipation Maalox as needed 4 times daily for gastritis -Added mineral oil enema #SOB, resolved, off oxygen Overnight (11/30-) patient became SOB, desatted into 80s with improvement on NC and after PD CXR consistent with vascular congestion, mild CHF picture. DDx: Fluid overload state from IV fluids vs 2L PD cycler (family uses 1.5L at home) vs progression of Antonia's CT chest & ANCA+ in [place]; will see if we can get the results via patient portal from patient's son -Will likely need outpatient pulm follow up -Will adjust breathing treatments to match home Breztri inhaler #HTN #?HFpEF (EF 55-60%), not in acute exacerbation SBP fairly normal for patient's age, with pain likely contributing to elevation Continue with pain management See echo results above Cardiology following, appreciate recs -Resumed patient's home metoprolol to prevent rebound tachycardia; prn labetalol #Aortic stenosis, moderate-severe Murmur appreciated; and seen on echo Cardiology following; maintain euvolemic state Recommend to have cardiology follow up outpatient #ESRD on PD #Antonia's granulomatosis Labs consistent with ESRD Nephro consulted, appreciate recommendations: Peritoneal dialysis session - 1.5L wash via cycler Sevelamer 800 mg 3 times daily for hyperphosphatemia Avoid nephrotoxic medications when possible and renally dose medication #History of CVA #HLD Will resume home atorvastatin Dispo: POD3, S/p hip fracture repair/reduction of shoulder fracture; starting physical therapy; continue PD per nephro; Home health with PT on discharge when stable GI PPx: Protonix, as needed Maalox DVT PPx: Eliquis 2.5 mg twice daily Diet: Renal, Nepro CODE STATUS: Full code Patient seen and care discussed with my attending Dr. Hernandez. Leandra Burgess MD PGY-3 Attending Provider Attestation/Addendum I reviewed labs, imaging, EKG, home medications and prior available records. Face to face evaluation was performed by me. I have personally examined the patient and discussed assessment and plan with the IM team. I reviewed the resident note and agree with the plan with exceptions as below. Impacted right subcapital hip fracture Right shoulder fracture ESRD on peritoneal dialysis Essential hypertension Leukocytosis Status post internal fixation on 12/01 Management of pain as needed: Will use oral oxycodone 5 mg and increase the dose to 10 mg with breakthrough pain Started Eliquis 2.5 mg twice daily PT evaluation after OR: Recommended home with home health Ordered hospital bed, wheelchair, and bedside commode. Discussed with social research assistant Ordered home health Right shoulder sling. No surgical intervention needed Trend WBC: Downtrending Consulted nephrology for dialysis recommendations: Started peritoneal dialysis. Will transition to [facility] in [place] however will need the results of the hepatitis B and TB prior to approval Resumed home metoprolol. Monitor BP Constipation management with senna and MiraLAX
[2024-12-04] MEDS: PANTOPRAZOLE 40 MG TABLET PO (08:47)
[2024-12-04] MEDS: SENNA TABLET 1 TAB PO ×2 (08:47→20:24)
[2024-12-04] MEDS: SEVELAMER CARBONATE 800 MG TABLET PO ×2 (08:47→12:53)
[2024-12-04] MEDS: METOPROLOL TARTRATE 25 MG TABLET 12.5 MG PO ×2 (08:48→20:24)
[2024-12-04] MEDS: APIXABAN 2.5 MG TABLET PO ×2 (08:48→20:24)
[2024-12-04] MEDS: NALOXEGOL OXALATE 25 MG TABLET (NON-FORMULARY) 12.5 MG PO ×2 (08:49→13:48)
[2024-12-04] MEDS: POLYETHYLENE GLYCOL 17 GM PACKET PO (08:50)
--- NOTE | 2024-12-04 09:00 | PD.RESPRO ---
Documentation for date of: 12/04/24 Subjective Subjective Interval history: Patient seen and examined at bedside. Labs and vitals reviewed. Patient reports improved pain today, reports was able to sleep well yesterday night. Patient actively participating with physical therapy. Case discussed with son-in-law at bedside, reports they prefer discharge home with home health. Primary team will obtain authorization for home health. Otherwise patient is stable from cardiac perspective, we will continue to monitor. Exam Vital Signs Temp Pulse Resp BP Pulse Ox O2 Del Method O2 Flow Rate 97.7 F 85 18 153/72 H 99 Room Air 1 12/04/24 07:43 12/04/24 08:48 12/04/24 07:43 12/04/24 08:48 12/04/24 07:43 12/04/24 07:43 12/02/24 08:00 Narrative Exam Physical Exam General: Awake and in no acute distress. Conversational and non-toxic appearing. HEENT: Normocephalic, atraumatic, mucous membranes moist. Heart: Regular rate and rhythm, positive murmur in aortic area, pulmonic area and mitral area. Lungs: Clear to auscultation with no wheezing or crackles. Abdomen: Soft, nondistended, nontender, positive bowel sounds. ?No guarding or rebound tenderness. Neurologic: Alert and oriented x3, no gross neurological deficit, and patient able to move all 4 extremities. Extremities: Right arm in sling, dressing intact right leg, no redness/swelling noted. Skin: No rash or ecchymoses. Objective Labs 12/05/24 05:32 12/05/24 05:32 Labs: Laboratory Results - last 24 hr 11/30/24 12/03/24 12/04/24 14:55 17:50 04:20 WBC 11.5 H RBC 2.62 L Hgb 7.9 L Hct 23.4 L MCV 89 MCH 30.2 MCHC 33.8 RDW Std Deviation 49.1 H Plt Count 316 Neut % (Auto) 70 Lymph % (Auto) 18 [place] % (Auto) 9 Eos % (Auto) 2 Baso % (Auto) 0 Neut # (Auto) 8.1 H Lymph # (Auto) 2.1 [place] # (Auto) 1.0 H Eos # (Auto) 0.3 Baso # (Auto) 0.0 Immature Gran # (Auto) 0.09 H Absolute Nucleated RBC 0.00 Immature Gran % 1 H Nucleated RBC % 0 Sodium 131 L Potassium 3.3 L Chloride 92 L Carbon Dioxide 24.7 Anion Gap 14 BUN 46 H Creatinine 6.1 H* D Estim Creat Clear Calc 5.3 L eGFR 6 L* BUN/Creatinine Ratio 8 L Glucose 108 H Calculated Osmolality 275 Calcium 9.2 Corrected Calcium 9.9 Phosphorus 3.6 Albumin 3.1 L Blood Type AB Positive Antibody Screen NEGATIVE Crossmatch See Detail Blood Bank Wristband ID Yes Quality Measures Quality Measures VTE prophylaxis Advance care planning discussed with:: patient Assessment & Plan Assessment Current Active Medications: Generic Name Dose Route Start Last Admin Trade Name Freq PRN Reason Stop Dose Admin Acetaminophen 650 mg 11/29/24 21:28 Acetaminophen 325 Mg Tablet PO 12/29/24 21:27 Q6H PRN Fever >100.5 and mild pain 1-3 Al Hydrox/Mg Hydrox/Simethicone 30 ml 12/02/24 10:33 Mg Hyd/Al Hyd/Ramon (Maalox Reg) Susp 30 Ml Udc PO 01/01/25 10:32 Q4HR PRN UPSET STOMACH/INDIGESTION Albuterol/Ipratropium 3 ml 11/30/24 01:00 12/04/24 06:47 Albuterol/Ipratropium (Duoneb) Rt Annika 3 Ml Nebu INH 12/30/24 00:59 3 ml Q6HRRT SABRINA Administration Apixaban 2.5 mg 12/02/24 09:00 12/04/24 08:48 Apixaban 2.5 Mg Tablet PO 01/01/25 08:59 2.5 mg BID SABRINA Administration Budesonide 0.25 mg 11/29/24 21:45 12/04/24 06:47 Budesonide Rt 0.25 Mg/2 Ml Nebu INH 12/29/24 21:44 0.25 mg BIDRT SABRINA Administration Hydromorphone HCl 0.5 mg 12/02/24 11:40 12/03/24 16:58 Hydromorphone Inj 2 Mg/Ml Vial IVP 12/04/24 21:32 0.5 mg Q3H PRN Administration Breakthrough, or prior to PT Labetalol HCl 10 mg 11/29/24 21:46 Labetalol Inj 5 Mg/Ml Vial 20 Ml IVP 12/29/24 21:41 Q3H PRN SBP >180mmHg Lidocaine 1 patch 12/01/24 09:00 Lidocaine 5% 1 Patch TOP 12/31/24 08:59 UD PRN PAIN Protocol Metoprolol Tartrate 12.5 mg 11/29/24 21:45 12/04/24 08:48 Metoprolol Tartrate 25 Mg Tablet PO 12/29/24 21:44 12.5 mg BID SABRINA Administration Metoprolol Tartrate 1 mg 12/01/24 14:41 Metoprolol Tartrate Inj 1 Mg/Ml Amp 5 Ml IVP Q5MIN PRN TACHYCARDIA Naloxegol 12.5 mg 12/03/24 10:45 12/04/24 08:49 Naloxegol Oxalate 25 Mg Tablet (Non-Formulary) PO 01/02/25 10:44 12.5 mg QDAY SABRINA Administration Ondansetron HCl 4 mg 12/01/24 17:07 12/03/24 16:51 Ondansetron Inj 2 Mg/Ml Inj 2 Ml IV 12/31/24 17:06 4 mg Q6HR PRN Administration NAUSEA OR VOMITING Oxycodone/Acetaminophen 1 tab 12/02/24 11:40 Oxycodone/Apap 5/325 Tablet PO 12/04/24 21:32 Q4H PRN PAIN SCALE 4-10(Mod-Sev Pantoprazole Sodium 40 mg 11/30/24 09:00 12/04/24 08:47 Pantoprazole 40 Mg Tablet PO 12/30/24 08:59 40 mg QDAY SABRINA Administration Pharmacy Consult 1 each 11/29/24 21:47 Pharmacy Renal Dose Adjustment 1 Ea XX 12/29/24 21:46 PRN PRN CONSULT Polyethylene Glycol 17 gm 12/02/24 10:45 12/04/24 08:50 Polyethylene Glycol 17 Gm Packet PO 01/01/25 10:44 17 gm QDAY SABRINA Administration Sennosides 1 tab 12/02/24 10:45 12/04/24 08:47 Senna Tablet PO 01/01/25 10:44 1 tab BID SABRINA Administration Protocol Sevelamer Carbonate 800 mg 11/30/24 17:30 12/04/24 08:47 Sevelamer Carbonate 800 Mg Tablet PO 12/30/24 17:29 800 mg TIDWM SABRINA Administration Plan Assessment and plan: Summary: Ms. 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 #Preoperative cardiac risk assessment #Diastolic heart failure, EF 60%, 2019, NHYA class III #Moderate to severe aortic stenosis Patient presented status post ground-level mechanical fall, has right hip and right shoulder fracture, orthopedics consulted for cardiology clearance. Patient denied any dizziness, presyncope, loss of consciousness and mentions that she remembers the incident clearly. Patient does have murmur in aortic area, mitral area. Otherwise patient is on peritoneal dialysis, does have history of diastolic heart failure, was admitted to the hospital previously for CHF exacerbation. Patient does have shortness of breath on mild exertion, independent ADLs, walks using a walker at baseline, does have shortness of breath on activities of daily living, reports is able to walk about 50-60 steps without shortness of breath. Patient baseline METS less than 4 per history. EKG showed NSR with acute ST-T changes history of ischemia. Cholesterol 138, LDL 83, HDL 43, Triglycerides 58; Hemoglobin A1c 5.2%; TSH 0.41, free t4 1.29 Patient does not have any unstable or active arrhythmias. Patient does not have any history of any CAD does not have any acute ischemic heart disease symptoms or signs at the present point of time.? Patient does have history of diastoic heart failure and is not in overt heart failure at the present point of time No history of any diabetes mellitus requiring insulin Patient does have history of ESRD on PD with baseline creatinine greater than 2. Patient also has history of stroke with remote more than 15 years. As noted above, patient does not have any active cardiac conditions and his RCRI risk score is 0 with with a low risk of 3.9% risk of major adverse cardiac events Echo 11/30/2024: Normal LV size and function. EF 55-60%. Diastolic dysfunction present but cannot be graded. Normal RV size and function. Estimated RVSP moderately elevated RVSP 55 mm hg. Moderate to Severe . AV vmax 3.8 m/s, Mean PG 38 mm hg. LATRICE 0.5 sq cm. Severe posterior mac AND moderate anterior MAC with mild mitral stenosis mean PG 5 mm hg. Moderate to sevre MR. moderate TR and mild to moderate AI. Moderately dilated LA and mildly dilated RA. As noted above patient has moderate to severe aortic stenosis with a valve area of 0.5 cm? by the V-max is only 3.8 m/s and mean PG 38 mmHg along with a history of moderate PAH, mild mitral stenosis, moderate to severe MR, moderate TR which makes her high risk for the above surgery but not a primary diuresis as patient does not have critical aortic stenosis and the V-max is still 4 m/s with normal LVEF. Her overall EF is normal at 55 to 60% with normal RV function RVSP is only estimated to be in moderately increased at 55 mmHg. Discussed with orthopedic surgeon Dr. Ramirez as well as the anesthesiologist Dr. Mendes and the patient's daughter Jorge about the high cardiac risk for the surgery and the she will need further evaluation of her valvular heart disease but cannot be done in emergently as she is not a surgical AVR candidate and will need complete evaluation for TAVR as outpatient, The patient needs an orthopedic surgery which is considered urgent and emergent for her at present point of time -should proceed with surgery as long as the patient, family as well as the surgeon agreed that she is at high risk of the surgery with higher incidence of complications given her age and comorbidities including end-stage renal disease and heart disease, diastolic heart failure Recommendations: -Patient is status post surgery without any cardiac applications., will continue to monitor -Will need close outpatient follow-up, follow-up in clinic 1 to 2 weeks after discharge #Right Hip Fracture (Acute impacted right subcapital fracture) status post Synthes implant, 2 hole plate 12/01/2024 #Right Shoulder Fracture (Acute humeral head and neck fracture) status post closed reduction treatment 12/01/2024 #Status post ground-level mechanical fall Patient presented status post ground-level mechanical fall, has right hip and right shoulder fracture, orthopedics consulted for cardiology clearance. Patient denied any dizziness, presyncope, loss of consciousness and mentions that she remembers the incident clearly. Humerus x-ray shows acute fractures humeral head and neck (comminuted fracture and humeral head through greater tuberosity) Shoulder x-ray acute fracture of humeral head and neck Pelvis CT shows acute impacted right subcapital hip fracture Patient is postop day 1 status post Synthes implant femoral neck right hip fracture with 2 hole plate and closed treatment of fracture of neck and head of right humerus by orthopedics. Patient had the procedure without any complications. -Patient on Eliquis 2.5 twice daily for DVT prophylaxis #Hyperlipidemia Lipid panel shows cholesterol 138, LDL 83, HDL 43, triglycerides 58 -Consider resuming home dose atorvastatin 40 mg daily #Hypertension Patient on metoprolol tartrate at home for blood pressure management, resumed by primary team. #Asthma On DuoNeb breathing treatment, resumed budesonide. Patient complaining of mild shortness of breath is on Ventolin and Breztri inhaler at home. #End-stage renal disease on peritoneal dialysis #Odnna's Granulomatosis, diagnosed 25 years ago End-stage renal disease on peritoneal dialysis secondary to Antonia's for the past 3 to 4 years Nephrology consult following patient closely #History of CVA, 15 years ago #Osteoarthritis, Osteoporosis #GERD Thank you for the consult and allowing to participate in the care of the patient. Cardiology will continue to follow. Case discussed with Attending Dr. Olivares. Misha Mcgowan PGY1 Disclaimer: This note was dictated by speech recognition. Minor errors in printed circuit boards plasma etcher may be present due to voice recognition software. Attending Provider Attestation/Addendum I have personally seen and examined the patient separately on the above date of service and discussed the plan of care with the resident. I reviewed the resident Dr. Misha Mcgowan consultation progress note and agree with the resident findings and plan in the note above and have also edited the documentation to reflect my findings and plan. Jori Olivares M.D. Interventional Cardiology
--- NOTE | 2024-12-04 09:29 | PC.SS ---
Addendum entered by Jo Junior 12/04/24 14:51: SS follow up note; SS confirmed with [facility]] office that patient needs new TB results abd HEP core pannels, Discharge plan is Home with HH with labs needed are established. Addendum entered by Jo Junior 12/04/24 12:47: SS contacted [facility] and they informed SS that they are pending Hep B Core Antibody and Surface antibody, Hep B Core IGM included with Hep B Core IGG core, and TB testing, SS informed DR Govea. Original Note: SS follow up note; SS Submitted transfer from [facility] to [facility] in [place]. SS Spoke to Ame and she informed SS that patient will discharge home and will follow up with [facility] that way Zuleyka could follow patient.
[2024-12-04] MEDS: ONDANSETRON INJ 2 MG/ML INJ 2 ML 4 MG IV (10:43)
[2024-12-04] MEDS: HYDROmorphone INJ 2 MG/ML VIAL 0.5 MG IVP ×2 (10:46→20:23)
[2024-12-04] MEDS: LACTULOSE SYRUP 20 GM/30 ML UDC PO (13:47)
[2024-12-04 13:48] LABS: Hepatitis A Antibody IgM Non Reactive (Non React); Hepatitis B Core Antibody IgM Non Reactive (Non React); Hepatitis B Surface Antigen Non Reactive (Non React); Hepatitis C Antibody Non Reactive (Non React)
[2024-12-04] MEDS: EPOETIN ALFA-EPBX INJ 10,000 UNIT/ML VIAL (ESRD) 10000 UNIT SC (20:33)
[2024-12-04] MEDS: TUBERCULIN PPD INJ 5 UNIT/0.1 ML DOSE ID (20:39)
[2024-12-05] VITALS (17 sets, daily range): BP systolic 120–153; BP diastolic 56–78; PULSE 68–102; RESP 17–23; TEMP 36.2–37.2; O2SAT 98–100; BMI 12.0
[2024-12-05] MEDS: ALBUTEROL/IPRATROPIUM (Duoneb) RT SOL 3 ML NEBU INH ×4 (00:40→18:46)
[2024-12-05 06:02] LABS: Quantiferon-TB* See Sep Rpt
[2024-12-05 06:26] LABS: Basophils % (Auto) 0 % (0-2.5); Eosinophils # (Auto) 0.4 Thou/mm3 (0.0-0.5); Eosinophils % (Auto) 4 % (0-10); Hematocrit 23.1 % (36.0-46.0); Immature Granulocytes % (Auto) 1 % (0-0); Immature Granulocytes Auto 0.13 Thou/mm3 (0.00-0.00); Lymphocytes # (Auto) 1.5 Thou/mm3 (1.0-4.8); Lymphocytes % (Auto) 13 % (10-50); Mean Corpuscular HGB Conc 33.3 g/dl (31.0-37.0); Mean Corpuscular Hemoglobin 30.1 pg (25.0-35.0); Mean Corpuscular Volume 90 fL (80-100); Monocytes # (Auto) 0.9 Thou/mm3 (0.0-0.8); Monocytes % (Auto) 8 % (0-12); Neutrophils # (Auto) 8.2 Thou/mm3 (1.8-7.7); Neutrophils % (Auto) 74 % (37-80); Nucleated Red Blood Cell % 0 /100 WBC (0); Platelet Count 348 Thou/mm3 (140-440); RDW Standard Deviation 49.4 fL (36.4-46.3); Red Blood Count 2.56 Miln/mm3 (4.00-5.20); White Blood Count 11.2 Thou/mm3 (3.6-11.0)
[2024-12-05] MEDS: BUDESONIDE RT 0.25 MG/2 ML NEBU INH ×2 (06:27→18:46)
[2024-12-05 06:35] LABS: Hemoglobin 7.7 g/dL (12.0-16.0)
[2024-12-05 07:04] LABS: Albumin, Serum 3.1 gm/dL (3.4-4.8); Anion Gap 11 (7-16); BUN/Creatinine Ratio 7 Ratio (12-20); Blood Urea Nitrogen 42 mg/dL (9-23); Calcium 8.8 mg/dL (8.3-10.6); Calcium (Corrected) 9.5 mg/dL (8.5-10.1); Carbon Dioxide 26.4 mMol/L (20.0-31.0); Chloride 94 mMol/L (98-107); Creatinine (Component) 6.3 mg/dL (0.6-1.3); Estimated Creatinine Clearance 5.1 mL/min (>60); Glucose 130 mg/dL (74-106); Magnesium 2.4 mg/dL (1.6-2.6); Osmolality,Calculated 275 (275-295); Phosphorous 4.1 mg/dL (2.4-5.1); Potassium 3.4 mMol/L (3.4-5.1); Sodium 131 mMol/L (136-145); eGFR 6 See Note
[2024-12-05] MEDS: oxyCODONE/APAP 5/325 TABLET 1 TAB PO (08:48)
[2024-12-05] MEDS: NALOXEGOL OXALATE 25 MG TABLET (NON-FORMULARY) PO (08:48)
[2024-12-05] MEDS: APIXABAN 2.5 MG TABLET PO ×2 (08:49→21:03)
[2024-12-05] MEDS: SEVELAMER CARBONATE 800 MG TABLET PO ×2 (08:49→17:56)
[2024-12-05] MEDS: PANTOPRAZOLE 40 MG TABLET PO (08:49)
[2024-12-05] MEDS: SENNA TABLET 1 TAB PO ×2 (08:49→21:03)
[2024-12-05] MEDS: METOPROLOL TARTRATE 25 MG TABLET 12.5 MG PO ×2 (08:50→21:03)
--- NOTE | 2024-12-05 15:18 | PC.SS ---
SS follow up note: Patient is pending TB results and Hep pannels.
--- NOTE | 2024-12-05 16:00 | PD.RESPRO ---
Documentation for date of: 12/05/24 Subjective Subjective Interval history: Patient is feeling well today, alert and talkative. She denies any chest pain, shortness of breath, dizziness, headaches, or palpitations at this time. She states that she has been trying to make herself eat more, lately does not have much appetite but had oatmeal and more chicken today. Patient shared that she was seeing a Paper Final Inspector back in [place], and that she was initially intended to have only a 1 month stay here. Due to the fracture, she anticipates delaying her trip back to [place]. Labs and vitals were reviewed. BP over last day ranged from 137/61 to 168/90.?HR in the 70-90s. No further complaints at this time. patient will be Review of systems otherwise negative except what is mentioned above. Exam Vital Signs Temp Pulse Resp BP Pulse Ox O2 Del Method O2 Flow Rate 97.3 F 81 18 144/70 H 99 Room Air 1 12/05/24 12:00 12/05/24 13:59 12/05/24 13:59 12/05/24 12:00 12/05/24 13:59 12/05/24 12:00 12/02/24 08:00 FiO2 1 12/04/24 23:18 Narrative Exam Physical Exam General: Awake and in no acute distress. Conversational and non-toxic appearing. HEENT: Normocephalic, atraumatic, mucous membranes moist. Heart: Regular rate and rhythm, positive murmur in aortic area, pulmonic area and mitral area. Lungs: Clear to auscultation with no wheezing or crackles. Abdomen: Soft, nondistended, nontender, positive bowel sounds. ?No guarding or rebound tenderness. Neurologic: Alert and oriented x3, no gross neurological deficit, and patient able to move all 4 extremities. Extremities: Right arm in sling, dressing intact right leg, no redness/swelling noted. Skin: No rash or ecchymoses. Objective Labs 12/06/24 04:35 12/06/24 04:35 Labs: Laboratory Results - last 24 hr 12/05/24 05:32 WBC 11.2 H RBC 2.56 L Hgb 7.7 L Hct 23.1 L MCV 90 MCH 30.1 MCHC 33.3 RDW Std Deviation 49.4 H Plt Count 348 D Neut % (Auto) 74 Lymph % (Auto) 13 [place] % (Auto) 8 Eos % (Auto) 4 Baso % (Auto) 0 Neut # (Auto) 8.2 H Lymph # (Auto) 1.5 [place] # (Auto) 0.9 H Eos # (Auto) 0.4 Baso # (Auto) 0.0 Immature Gran # (Auto) 0.13 H Absolute Nucleated RBC 0.00 Immature Gran % 1 H Nucleated RBC % 0 Sodium 131 L Potassium 3.4 Chloride 94 L Carbon Dioxide 26.4 Anion Gap 11 BUN 42 H Creatinine 6.3 H* Estim Creat Clear Calc 5.1 L eGFR 6 L* BUN/Creatinine Ratio 7 L Glucose 130 H Calculated Osmolality 275 Calcium 8.8 Corrected Calcium 9.5 Phosphorus 4.1 Magnesium 2.4 Albumin 3.1 L Quality Measures Quality Measures VTE prophylaxis Advance care planning discussed with:: patient Assessment & Plan Assessment Current Active Medications: Generic Name Dose Route Start Last Admin Trade Name Freq PRN Reason Stop Dose Admin Acetaminophen 650 mg 11/29/24 21:28 Acetaminophen 325 Mg Tablet PO 12/29/24 21:27 Q6H PRN Fever >100.5 and mild pain 1-3 Al Hydrox/Mg Hydrox/Simethicone 30 ml 12/02/24 10:33 Mg Hyd/Al Hyd/Ramon (Maalox Reg) Susp 30 Ml Udc PO 01/01/25 10:32 Q4HR PRN UPSET STOMACH/INDIGESTION Albuterol/Ipratropium 3 ml 11/30/24 01:00 12/05/24 13:56 Albuterol/Ipratropium (Duoneb) Rt Annika 3 Ml Nebu INH 12/30/24 00:59 3 ml Q6HRRT SABRINA Administration Apixaban 2.5 mg 12/02/24 09:00 12/05/24 08:49 Apixaban 2.5 Mg Tablet PO 01/01/25 08:59 2.5 mg BID SABRINA Administration Budesonide 0.25 mg 11/29/24 21:45 12/05/24 06:27 Budesonide Rt 0.25 Mg/2 Ml Nebu INH 12/29/24 21:44 0.25 mg BIDRT SABRINA Administration Hydromorphone HCl 0.5 mg 12/04/24 22:00 Hydromorphone Inj 2 Mg/Ml Vial IVP 12/09/24 21:59 Q3HR PRN Breakthrough pain, & before PT Labetalol HCl 10 mg 11/29/24 21:46 Labetalol Inj 5 Mg/Ml Vial 20 Ml IVP 12/29/24 21:41 Q3H PRN SBP >180mmHg Lidocaine 1 patch 12/01/24 09:00 Lidocaine 5% 1 Patch TOP 12/31/24 08:59 UD PRN PAIN Protocol Metoprolol Tartrate 12.5 mg 11/29/24 21:45 12/05/24 08:50 Metoprolol Tartrate 25 Mg Tablet PO 12/29/24 21:44 12.5 mg BID SABRINA Administration Naloxegol 25 mg 12/05/24 09:00 12/05/24 08:48 Naloxegol Oxalate 25 Mg Tablet (Non-Formulary) PO 01/04/25 08:59 25 mg QDAY SABRINA Administration Ondansetron HCl 4 mg 12/01/24 17:07 12/04/24 10:43 Ondansetron Inj 2 Mg/Ml Inj 2 Ml IV 12/31/24 17:06 4 mg Q6HR PRN Administration NAUSEA OR VOMITING Oxycodone/Acetaminophen 1 tab 12/04/24 22:00 12/05/24 08:48 Oxycodone/Apap 5/325 Tablet PO 12/09/24 21:59 1 tab Q6HR PRN Administration PAIN SCALE 4-10(Mod-Sev Pantoprazole Sodium 40 mg 11/30/24 09:00 12/05/24 08:49 Pantoprazole 40 Mg Tablet PO 12/30/24 08:59 40 mg QDAY SABRINA Administration Pharmacy Consult 1 each 11/29/24 21:47 Pharmacy Renal Dose Adjustment 1 Ea XX 12/29/24 21:46 PRN PRN CONSULT Polyethylene Glycol 17 gm 12/02/24 10:45 12/04/24 08:50 Polyethylene Glycol 17 Gm Packet PO 01/01/25 10:44 17 gm QDAY SABRINA Administration Sennosides 1 tab 12/02/24 10:45 12/05/24 08:49 Senna Tablet PO 01/01/25 10:44 1 tab BID SABRINA Administration Protocol Sevelamer Carbonate 800 mg 11/30/24 17:30 12/05/24 08:49 Sevelamer Carbonate 800 Mg Tablet PO 12/30/24 17:29 800 mg TIDWM SABRINA Administration Plan Assessment and plan: Summary: Ms. 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 #Diastolic heart failure, EF 60%, 2019, NHYA class III #Moderate to severe aortic stenosis #Preoperative cardiac risk assessment - completed Patient presented status post ground-level mechanical fall, has right hip and right shoulder fracture, orthopedics consulted for cardiology clearance. Patient denied any dizziness, presyncope, loss of consciousness and mentions that she remembers the incident clearly. Patient does have murmur in aortic area, mitral area. Otherwise patient is on peritoneal dialysis, does have history of diastolic heart failure, was admitted to the hospital previously for CHF exacerbation. Patient does have shortness of breath on mild exertion, independent ADLs, walks using a walker at baseline, does have shortness of breath on activities of daily living, reports is able to walk about 50-60 steps without shortness of breath. Patient baseline METS less than 4 per history. EKG showed NSR with acute ST-T changes history of ischemia. Cholesterol 138, LDL 83, HDL 43, Triglycerides 58; Hemoglobin A1c 5.2%; TSH 0.41, free t4 1.29 Patient does not have any unstable or active arrhythmias. Patient does not have any history of any CAD does not have any acute ischemic heart disease symptoms or signs at the present point of time.? Patient does have history of diastoic heart failure and is not in overt heart failure at the present point of time No history of any diabetes mellitus requiring insulin Patient does have history of ESRD on PD with baseline creatinine greater than 2. Patient also has history of stroke with remote more than 15 years. As noted above, patient does not have any active cardiac conditions and his RCRI risk score is 0 with with a low risk of 3.9% risk of major adverse cardiac events Echo 11/30/2024: Normal LV size and function. EF 55-60%. Diastolic dysfunction present but cannot be graded. Normal RV size and function. Estimated RVSP moderately elevated RVSP 55 mm hg. Moderate to Severe . AV vmax 3.8 m/s, Mean PG 38 mm hg. LATRICE 0.5 sq cm. Severe posterior mac AND moderate anterior MAC with mild mitral stenosis mean PG 5 mm hg. Moderate to sevre MR. moderate TR and mild to moderate AI. Moderately dilated LA and mildly dilated RA. As noted above patient has moderate to severe aortic stenosis with a valve area of 0.5 cm? by the V-max is only 3.8 m/s and mean PG 38 mmHg along with a history of moderate PAH, mild mitral stenosis, moderate to severe MR, moderate TR which makes her high risk for the above surgery but not a primary diuresis as patient does not have critical aortic stenosis and the V-max is still 4 m/s with normal LVEF. Her overall EF is normal at 55 to 60% with normal RV function RVSP is only estimated to be in moderately increased at 55 mmHg. Discussed with orthopedic surgeon Dr. Ramirez as well as the anesthesiologist Dr. Mendes and the patient's daughter Dr. Patel about the high cardiac risk for the surgery and the she will need further evaluation of her valvular heart disease but cannot be done in emergently as she is not a surgical AVR candidate and will need complete evaluation for TAVR as outpatient, The patient needs an orthopedic surgery which is considered urgent and emergent for her at present point of time -should proceed with surgery as long as the patient, family as well as the surgeon agreed that she is at high risk of the surgery with higher incidence of complications given her age and comorbidities including end-stage renal disease and heart disease, diastolic heart failure Recommendations: -Patient is status post surgery without any cardiac complications, will continue to monitor -Will need close outpatient follow-up, follow-up in clinic 1 to 2 weeks after discharge #Right Hip Fracture (Acute impacted right subcapital fracture) status post Synthes implant, 2 hole plate 12/01/2024 #Right Shoulder Fracture (Acute humeral head and neck fracture) status post closed reduction treatment 12/01/2024 #Status post ground-level mechanical fall Patient presented status post ground-level mechanical fall, has right hip and right shoulder fracture, orthopedics consulted for cardiology clearance. Patient denied any dizziness, presyncope, loss of consciousness and mentions that she remembers the incident clearly. Humerus x-ray shows acute fractures humeral head and neck (comminuted fracture and humeral head through greater tuberosity) Shoulder x-ray acute fracture of humeral head and neck Pelvis CT shows acute impacted right subcapital hip fracture Patient is postop day 1 status post Synthes implant femoral neck right hip fracture with 2 hole plate and closed treatment of fracture of neck and head of right humerus by orthopedics. Patient had the procedure without any complications. -Patient on Eliquis 2.5 twice daily for DVT prophylaxis #Hyperlipidemia Lipid panel shows cholesterol 138, LDL 83, HDL 43, triglycerides 58 -Continue home dose atorvastatin 40 mg daily #Hypertension Patient on metoprolol tartrate at home for blood pressure management, resumed by primary team. #Asthma On DuoNeb breathing treatment, resumed budesonide. Patient complaining of mild shortness of breath is on Ventolin and Breztri inhaler at home. #End-stage renal disease on peritoneal dialysis #Donna's Granulomatosis, diagnosed 25 years ago End-stage renal disease on peritoneal dialysis secondary to Antonia's for the past 3 to 4 years Nephrology consult following patient closely #History of CVA, 15 years ago #Osteoarthritis, Osteoporosis #GERD Thank you for the consult and allowing to participate in the care of the patient. Cardiology will continue to follow. Patient plan of care was discussed with the attending physician, Dr. Olivares. Lucy Holguin, PGY-2 Attending Provider Attestation/Addendum I have personally seen and examined the patient separately on the above date of service and discussed the plan of care with the resident. I reviewed the resident Dr. Lucy Holguin consultation progress note and agree with the resident findings and plan in the note above and have also edited the documentation to reflect my findings and plan. Jori Olivares M.D. Interventional Cardiology
--- NOTE | 2024-12-05 16:31 | ESPR_ITS ---
Documentation for date of: 12/05/24 Subjective Subjective Interval history: Patient is seen and examined at bedside. No acute overnight events. Still complaining of pain at the site of fractures Physical therapy is following up with the patient Vitals are stable. On physical examination, severe tenderness noted at the sites of fracture Labs showed hemoglobin of 7.7, WBC 11.2, sodium 131, BUN 42, creatinine 6.3 Hepatitis B core IgM antibody and TB QuantiFERON test is still pending Physical therapy is following the patient Patient will be discharged to home with home health once the pending results come back Exam Vital Signs Temp Pulse Resp BP Pulse Ox O2 Del Method O2 Flow Rate 97.3 F 81 18 144/70 H 99 Room Air 1 12/05/24 12:00 12/05/24 13:59 12/05/24 13:59 12/05/24 12:00 12/05/24 13:59 12/05/24 12:00 12/02/24 08:00 FiO2 1 12/04/24 23:18 Narrative Exam General: Awake. HEENT: Normocephalic, atraumatic, mucous membranes moist. Heart: Regular rate and rhythm, ejection systolic murmur heard in all areas, best heard at at the aortic area-4/6 Lungs: Clear to auscultation with no wheezing or crackles. Abdomen: Soft, nondistended, nontender, positive bowel sounds. ?No guarding or rebound tenderness. Neurologic: Alert and oriented x3, no gross neurological deficit, and patient able to move all 4 extremities. Extremities: Severe tenderness at the site of both fractures. Surgical site at the right hip looks clean Skin: No rash or ecchymoses. Objective Labs 12/06/24 04:35 12/06/24 04:35 Labs: Laboratory Results - last 24 hr 12/05/24 05:32 WBC 11.2 H RBC 2.56 L Hgb 7.7 L Hct 23.1 L MCV 90 MCH 30.1 MCHC 33.3 RDW Std Deviation 49.4 H Plt Count 348 D Neut % (Auto) 74 Lymph % (Auto) 13 [place] % (Auto) 8 Eos % (Auto) 4 Baso % (Auto) 0 Neut # (Auto) 8.2 H Lymph # (Auto) 1.5 [place] # (Auto) 0.9 H Eos # (Auto) 0.4 Baso # (Auto) 0.0 Immature Gran # (Auto) 0.13 H Absolute Nucleated RBC 0.00 Immature Gran % 1 H Nucleated RBC % 0 Sodium 131 L Potassium 3.4 Chloride 94 L Carbon Dioxide 26.4 Anion Gap 11 BUN 42 H Creatinine 6.3 H* Estim Creat Clear Calc 5.1 L eGFR 6 L* BUN/Creatinine Ratio 7 L Glucose 130 H Calculated Osmolality 275 Calcium 8.8 Corrected Calcium 9.5 Phosphorus 4.1 Magnesium 2.4 Albumin 3.1 L Quality Measures Quality Measures VTE prophylaxis Advance care planning discussed with:: patient Assessment & Plan Assessment Current Active Medications: Generic Name Dose Route Start Last Admin Trade Name Freq PRN Reason Stop Dose Admin Acetaminophen 650 mg 11/29/24 21:28 Acetaminophen 325 Mg Tablet PO 12/29/24 21:27 Q6H PRN Fever >100.5 and mild pain 1-3 Al Hydrox/Mg Hydrox/Simethicone 30 ml 12/02/24 10:33 Mg Hyd/Al Hyd/Ramon (Maalox Reg) Susp 30 Ml Udc PO 01/01/25 10:32 Q4HR PRN UPSET STOMACH/INDIGESTION Albuterol/Ipratropium 3 ml 11/30/24 01:00 12/05/24 13:56 Albuterol/Ipratropium (Duoneb) Rt Annika 3 Ml Nebu INH 12/30/24 00:59 3 ml Q6HRRT SABRINA Administration Apixaban 2.5 mg 12/02/24 09:00 12/05/24 08:49 Apixaban 2.5 Mg Tablet PO 01/01/25 08:59 2.5 mg BID SABRINA Administration Budesonide 0.25 mg 11/29/24 21:45 12/05/24 06:27 Budesonide Rt 0.25 Mg/2 Ml Nebu INH 12/29/24 21:44 0.25 mg BIDRT SABRINA Administration Hydromorphone HCl 0.5 mg 12/04/24 22:00 Hydromorphone Inj 2 Mg/Ml Vial IVP 12/09/24 21:59 Q3HR PRN Breakthrough pain, & before PT Labetalol HCl 10 mg 11/29/24 21:46 Labetalol Inj 5 Mg/Ml Vial 20 Ml IVP 12/29/24 21:41 Q3H PRN SBP >180mmHg Lidocaine 1 patch 12/01/24 09:00 Lidocaine 5% 1 Patch TOP 12/31/24 08:59 UD PRN PAIN Protocol Metoprolol Tartrate 12.5 mg 11/29/24 21:45 12/05/24 08:50 Metoprolol Tartrate 25 Mg Tablet PO 12/29/24 21:44 12.5 mg BID SABRINA Administration Naloxegol 25 mg 12/05/24 09:00 12/05/24 08:48 Naloxegol Oxalate 25 Mg Tablet (Non-Formulary) PO 01/04/25 08:59 25 mg QDAY SABRINA Administration Ondansetron HCl 4 mg 12/01/24 17:07 12/04/24 10:43 Ondansetron Inj 2 Mg/Ml Inj 2 Ml IV 12/31/24 17:06 4 mg Q6HR PRN Administration NAUSEA OR VOMITING Oxycodone/Acetaminophen 1 tab 12/04/24 22:00 12/05/24 08:48 Oxycodone/Apap 5/325 Tablet PO 12/09/24 21:59 1 tab Q6HR PRN Administration PAIN SCALE 4-10(Mod-Sev Pantoprazole Sodium 40 mg 11/30/24 09:00 12/05/24 08:49 Pantoprazole 40 Mg Tablet PO 12/30/24 08:59 40 mg QDAY SABRINA Administration Pharmacy Consult 1 each 11/29/24 21:47 Pharmacy Renal Dose Adjustment 1 Ea XX 12/29/24 21:46 PRN PRN CONSULT Polyethylene Glycol 17 gm 12/02/24 10:45 12/04/24 08:50 Polyethylene Glycol 17 Gm Packet PO 01/01/25 10:44 17 gm QDAY SABRINA Administration Sennosides 1 tab 12/02/24 10:45 12/05/24 08:49 Senna Tablet PO 01/01/25 10:44 1 tab BID SABRINA Administration Protocol Sevelamer Carbonate 800 mg 11/30/24 17:30 12/05/24 12:00 Sevelamer Carbonate 800 Mg Tablet PO 12/30/24 17:29 Not Given TIDWM SABRINA Plan Patient is an 84-year-old female with HTN, HLD, HFpEF (EF 60% in 2019), ESRD on peritoneal dialysis, history of CVA who was admitted after a GLF in which she sustained a right hip fracture and right shoulder fracture. She is pending surgical repair with orthopedics for right hip fracture, and requires cardiac clearance. Nephrology consulted for inpatient peritoneal dialysis. #Right hip fracture, s/p FNS on 12/01, POD4 #Right shoulder fracture, s/p CRIF on 12/01 GLF after tripping on her slippers while at daughter's home. No LOC. Patient is visiting from [place]. Head CT was negative for acute pathology. Hip x-ray & pelvis CT revealed acute impacted right subcapital hip fracture Shoulder and humerus x-ray revealed acute fractures of the humeral head and neck Shoulder fracture placed in sling; =>CRIF Orthopedics consulted for surgical repair of right hip fracture Cardiology consulted for clearance: METS <4, RCRI 0 points => high risk surgery with cardiology follow up Echo: Normal LV & RV size and function. EF 55-60%. Moderate to severe aortic stenosis with a V-max 3.8 m/s. Severe posterior MAC and moderate anterior MAC with mild mitral stenosis. Moderate to severe MR. Moderate TR. Mild to moderate AI. Moderately dilated LA LA and mildly dilated RA -Pain control with acetaminophen and oxycodone; Dilaudid for breakthrough pain or prior to physical therapy?will give Zofran prior to Dilaudid -Physical therapy ordered; home health with PT on DC -Eliquis 2.5 mg twice daily for DVT prophylaxis -Encouraged to use IS to prevent post-op atelectasis #Constipation #Gastritis Started aggressive bowel regimen with scheduled senna twice daily, MiraLAX daily; added Movantik to prevent opioid induced constipation Maalox as needed 4 times daily for gastritis -Added mineral oil enema #SOB, resolved, off oxygen Overnight (11/30-) patient became SOB, desatted into 80s with improvement on NC and after PD CXR consistent with vascular congestion, mild CHF picture. DDx: Fluid overload state from IV fluids vs 2L PD cycler (family uses 1.5L at home) vs progression of Antonia's CT chest & ANCA+ in [place]; will see if we can get the results via patient portal from patient's son -Will likely need outpatient pulm follow up -Will adjust breathing treatments to match home Breztri inhaler #HTN #?HFpEF (EF 55-60%), not in acute exacerbation SBP fairly normal for patient's age, with pain likely contributing to elevation Continue with pain management See echo results above Cardiology following, appreciate recs -Resumed patient's home metoprolol to prevent rebound tachycardia; prn labetalol #Aortic stenosis, moderate-severe Murmur appreciated; and seen on echo Cardiology following; maintain euvolemic state Recommend to have cardiology follow up outpatient #ESRD on PD #Antonia's granulomatosis Labs consistent with ESRD Nephro consulted, appreciate recommendations: Peritoneal dialysis session - 1.5L wash via cycler Sevelamer 800 mg 3 times daily for hyperphosphatemia Avoid nephrotoxic medications when possible and renally dose medication #History of CVA #HLD Resumed her home atorvastatin Dispo: POD4, S/p hip fracture repair/reduction of shoulder fracture; starting physical therapy; continue PD per nephro; Home health with PT on discharge when stable GI PPx: Protonix, as needed Maalox DVT PPx: Eliquis 2.5 mg twice daily Diet: Renal, Nepro CODE STATUS: Full code Patient plan of care was discussed with the attending physician, Dr. Hernandez and senior resident Dr. Damian Hsu, PGY1 Attending Provider Attestation/Addendum I reviewed labs, imaging, EKG, home medications and prior available records. Face to face evaluation was performed by me. I have personally examined the patient and discussed assessment and plan with the IM team. I reviewed the resident note and agree with the plan with exceptions as below. Impacted right subcapital hip fracture Right shoulder fracture ESRD on peritoneal dialysis Essential hypertension Leukocytosis Status post internal fixation on 12/01 Management of pain as needed: Will use oral oxycodone 5 mg and increase the dose to 10 mg with breakthrough pain Started Eliquis 2.5 mg twice daily PT evaluation after OR: Recommended home with home health Ordered hospital bed, wheelchair, and bedside commode. Discussed with hospital social worker Ordered home health Right shoulder sling. No surgical intervention needed Trend WBC: Downtrending Consulted nephrology for dialysis recommendations: Started peritoneal dialysis. Will transition to [facility] in [place] however will need the results of the hepatitis B and TB prior to approval Resumed home metoprolol. Monitor BP Constipation management with senna and MiraLAX
[2024-12-05] MEDS: ACETAMINOPHEN 325 MG TABLET 650 MG PO (18:01)
[2024-12-05] MEDS: ATORVASTATIN CALCIUM 20 MG TABLET 40 MG PO (21:02)
[2024-12-06] VITALS (15 sets, daily range): BP systolic 125–153; BP diastolic 53–83; PULSE 76–88; RESP 18–24; TEMP 36.1–36.7; O2SAT 98–100; BMI 24.6; BMI 12.0
[2024-12-06] MEDS: ALBUTEROL/IPRATROPIUM (Duoneb) RT SOL 3 ML NEBU INH ×4 (00:37→19:00)
[2024-12-06 05:22] LABS: Basophils # (Auto) 0.1 Thou/mm3 (0.0-0.2); Basophils % (Auto) 0 % (0-2.5); Eosinophils # (Auto) 0.4 Thou/mm3 (0.0-0.5); Eosinophils % (Auto) 3 % (0-10); Hematocrit 22.9 % (36.0-46.0); Immature Granulocytes % (Auto) 2 % (0-0); Immature Granulocytes Auto 0.32 Thou/mm3 (0.00-0.00); Lymphocytes # (Auto) 1.7 Thou/mm3 (1.0-4.8); Lymphocytes % (Auto) 12 % (10-50); Mean Corpuscular HGB Conc 33.2 g/dl (31.0-37.0); Mean Corpuscular Hemoglobin 29.9 pg (25.0-35.0); Mean Corpuscular Volume 90 fL (80-100); Monocytes # (Auto) 0.9 Thou/mm3 (0.0-0.8); Monocytes % (Auto) 6 % (0-12); Neutrophils # (Auto) 11.1 Thou/mm3 (1.8-7.7); Neutrophils % (Auto) 77 % (37-80); Nucleated Red Blood Cell # 0.02 Thou/mm3 (0.00-0.00); Nucleated Red Blood Cell % 0 /100 WBC (0); Platelet Count 332 Thou/mm3 (140-440); RDW Standard Deviation 49.1 fL (36.4-46.3); Red Blood Count 2.54 Miln/mm3 (4.00-5.20); White Blood Count 14.5 Thou/mm3 (3.6-11.0)
[2024-12-06 05:39] LABS: Hemoglobin 7.6 g/dL (12.0-16.0)
[2024-12-06 05:44] LABS: Albumin, Serum 3.1 gm/dL (3.4-4.8); Anion Gap 12 (7-16); BUN/Creatinine Ratio 7 Ratio (12-20); Blood Urea Nitrogen 47 mg/dL (9-23); Calcium 8.7 mg/dL (8.3-10.6); Calcium (Corrected) 9.4 mg/dL (8.5-10.1); Carbon Dioxide 25.9 mMol/L (20.0-31.0); Chloride 94 mMol/L (98-107); Creatinine (Component) 6.4 mg/dL (0.6-1.3); Estimated Creatinine Clearance 5.1 mL/min (>60); Glucose 155 mg/dL (74-106); Osmolality,Calculated 279 (275-295); Phosphorous 3.6 mg/dL (2.4-5.1); Sodium 132 mMol/L (136-145); eGFR 6 See Note
[2024-12-06] MEDS: BUDESONIDE RT 0.25 MG/2 ML NEBU INH ×2 (06:38→19:00)
[2024-12-06] MEDS: SEVELAMER CARBONATE 800 MG TABLET PO ×3 (07:29→16:55)
[2024-12-06] MEDS: APIXABAN 2.5 MG TABLET PO ×2 (09:10→20:55)
[2024-12-06] MEDS: PANTOPRAZOLE 40 MG TABLET PO (09:11)
[2024-12-06] MEDS: ACETAMINOPHEN 325 MG TABLET 650 MG PO ×2 (09:11→21:13)
[2024-12-06] MEDS: SENNA TABLET 1 TAB PO ×2 (09:11→20:55)
[2024-12-06] MEDS: METOPROLOL TARTRATE 25 MG TABLET 12.5 MG PO ×2 (09:12→20:52)
[2024-12-06] MEDS: oxyCODONE/APAP 5/325 TABLET 1 TAB PO (09:26)
--- NOTE | 2024-12-06 10:11 | PC.SS ---
Addendum entered by Jo Junior 12/06/24 14:40: SS contacted patient's daughter, Ame and provided appointment for tomorrow with [facility] at 3PM. also provided [facility]'s contact number. Daughter requested for SS to leave information at Bedside. SS will sent out TB results tomorrow morning through [employer] Portal. SS will stand by for further needs. Addendum entered by Jo Junior 12/06/24 12:53: SS has attempted to contact the [facility] for follow up appointment however could not get through to have patient scheduled, SS emailed [facility] however they have not contacted patient's daughter, in order for patient to be followed by Melina they must be seen at the [facility]. Patient's daughter also informed SS that patient would need a virtual appointment, SS informed her that SS does not have that control in regards to being seen via Virtual appointment Addendum entered by Jo Junior 12/06/24 12:00: SS follow up note; SS was contacted by patient's nurse, Kyra and she confirmed with Infection control nurse that patient has to wait until 8PM to get TB read. Original Note: SS follow up note: [facility] sent message through Portal, reporting they were able to obtain the HepBcAb from previous [facility], however TB results are still pending in order for patient to discharge, SS followed up with patient's nurse Kyra and she informed SS that Results won't be read until later this night, Kyra infomred SS she would follow up with Charge nurse, Safia in regards to getting it read sooner. SS will stand by for further needs.
--- NOTE | 2024-12-06 12:41 | PD.RESPRO ---
Documentation for date of: 12/06/24 Subjective Subjective Interval history: No acute overnight events. Seen and examined at bedside with daughter at bedside. Spoke to social work case manager and infectious disease nurse who stated that patient will require PPD skin testing read at 2048 prior to being authorized for outpatient dialysis materials. Additionally, patient will require formal PCP visit in order to get home health physical therapy and plan to follow-up at [facility] in order for this to happen. Noted that patient will require ambulance pickup given that she has a broken hip to be transported back home. Patient states that she is willing to leave tomorrow after working with physical therapy. Exam Vital Signs Temp Pulse Resp BP Pulse Ox O2 Del Method O2 Flow Rate 96.9 F 79 18 125/53 L 100 Room Air 1 12/06/24 11:53 12/06/24 12:08 12/06/24 12:08 12/06/24 11:53 12/06/24 12:08 12/06/24 11:53 12/06/24 04:00 FiO2 1 12/06/24 04:00 Narrative Exam General: AOx3, in mild distress due to pain, able to speak full sentences HEENT: NC/AT, mucous membranes moist, bilateral sclera anicteric Cardiovascular: systolic murmur appreciated in aortic and pulmonic regions, S1/S2 present, no murmurs appreciated Pulmonary: clear to auscultation bilaterally, no rales/rhonchi/wheezes Abdominal: soft, non-tender, non-distended, no rebound/guarding, normal bowel sounds present Musculoskeletal: right arm in sling with limited ROM, dressing intact right leg with limited ROM, no redness/swelling noted Skin: warm and dry, intact, no rashes Neuro: CN II-XII intact, no focal deficits Objective Labs 12/07/24 04:47 12/07/24 04:47 Labs: Laboratory Results - last 24 hr 12/06/24 04:35 WBC 14.5 H RBC 2.54 L Hgb 7.6 L Hct 22.9 L MCV 90 MCH 29.9 MCHC 33.2 RDW Std Deviation 49.1 H Plt Count 332 Neut % (Auto) 77 Lymph % (Auto) 12 Real % (Auto) 6 Eos % (Auto) 3 Baso % (Auto) 0 Neut # (Auto) 11.1 H Lymph # (Auto) 1.7 Real # (Auto) 0.9 H Eos # (Auto) 0.4 Baso # (Auto) 0.1 Immature Gran # (Auto) 0.32 H Absolute Nucleated RBC 0.02 H Immature Gran % 2 H Nucleated RBC % 0 Sodium 132 L Potassium 3.0 L Chloride 94 L Carbon Dioxide 25.9 Anion Gap 12 BUN 47 H Creatinine 6.4 H* Estim Creat Clear Calc 5.1 L eGFR 6 L* BUN/Creatinine Ratio 7 L Glucose 155 H Calculated Osmolality 279 Calcium 8.7 Corrected Calcium 9.4 Phosphorus 3.6 Albumin 3.1 L Quality Measures Quality Measures VTE prophylaxis Advance care planning discussed with:: patient and child Assessment & Plan Assessment Current Active Medications: Generic Name Dose Route Start Last Admin Trade Name Freq PRN Reason Stop Dose Admin Acetaminophen 650 mg 11/29/24 21:28 12/06/24 09:11 Acetaminophen 325 Mg Tablet PO 12/29/24 21:27 650 mg Q6H PRN Administration Fever >100.5 and mild pain 1-3 Al Hydrox/Mg Hydrox/Simethicone 30 ml 12/02/24 10:33 Mg Hyd/Al Hyd/Ramon (Maalox Reg) Susp 30 Ml Udc PO 01/01/25 10:32 Q4HR PRN UPSET STOMACH/INDIGESTION Albuterol/Ipratropium 3 ml 11/30/24 01:00 12/06/24 12:04 Albuterol/Ipratropium (Duoneb) Rt Annika 3 Ml Nebu INH 12/30/24 00:59 3 ml Q6HRRT SABRINA Administration Apixaban 2.5 mg 12/02/24 09:00 12/06/24 09:10 Apixaban 2.5 Mg Tablet PO 01/01/25 08:59 2.5 mg BID SABRINA Administration Atorvastatin Calcium 40 mg 12/05/24 21:00 12/05/24 21:02 Atorvastatin Calcium 20 Mg Tablet PO 01/04/25 20:59 40 mg HS SABRINA Administration Budesonide 0.25 mg 11/29/24 21:45 12/06/24 06:38 Budesonide Rt 0.25 Mg/2 Ml Nebu INH 12/29/24 21:44 0.25 mg BIDRT SABRINA Administration Hydromorphone HCl 0.5 mg 12/04/24 22:00 Hydromorphone Inj 2 Mg/Ml Vial IVP 12/09/24 21:59 Q3HR PRN Breakthrough pain, & before PT Labetalol HCl 10 mg 11/29/24 21:46 Labetalol Inj 5 Mg/Ml Vial 20 Ml IVP 12/29/24 21:41 Q3H PRN SBP >180mmHg Lidocaine 1 patch 12/01/24 09:00 Lidocaine 5% 1 Patch TOP 12/31/24 08:59 UD PRN PAIN Protocol Metoprolol Tartrate 12.5 mg 11/29/24 21:45 12/06/24 09:12 Metoprolol Tartrate 25 Mg Tablet PO 12/29/24 21:44 12.5 mg BID SABRINA Administration Naloxegol 25 mg 12/05/24 09:00 12/06/24 09:17 Naloxegol Oxalate 25 Mg Tablet (Non-Formulary) PO 01/04/25 08:59 Not Given QDAY SABRINA Ondansetron HCl 4 mg 12/01/24 17:07 12/04/24 10:43 Ondansetron Inj 2 Mg/Ml Inj 2 Ml IV 12/31/24 17:06 4 mg Q6HR PRN Administration NAUSEA OR VOMITING Oxycodone/Acetaminophen 1 tab 12/04/24 22:00 12/06/24 09:26 Oxycodone/Apap 5/325 Tablet PO 12/09/24 21:59 1 tab Q6HR PRN Administration PAIN SCALE 4-10(Mod-Sev Pantoprazole Sodium 40 mg 11/30/24 09:00 12/06/24 09:11 Pantoprazole 40 Mg Tablet PO 12/30/24 08:59 40 mg QDAY SABRINA Administration Pharmacy Consult 1 each 11/29/24 21:47 Pharmacy Renal Dose Adjustment 1 Ea XX 12/29/24 21:46 PRN PRN CONSULT Polyethylene Glycol 17 gm 12/02/24 10:45 12/06/24 09:27 Polyethylene Glycol 17 Gm Packet PO 01/01/25 10:44 Not Given QDAY SABRIAN Sennosides 1 tab 12/02/24 10:45 12/06/24 09:11 Senna Tablet PO 01/01/25 10:44 1 tab BID SABRINA Administration Protocol Sevelamer Carbonate 800 mg 11/30/24 17:30 12/06/24 11:38 Sevelamer Carbonate 800 Mg Tablet PO 12/30/24 17:29 800 mg TIDWM SABRINA Administration Plan Tho Lee is an 84-year-old female with HTN, HLD, HFpEF (EF 60% in 2019), ESRD on peritoneal dialysis, history of CVA who was admitted after a GLF in which she sustained a right hip fracture and right shoulder fracture. She is pending surgical repair with orthopedics for right hip fracture, and requires cardiac clearance. Nephrology consulted for inpatient peritoneal dialysis. #Right hip fracture, s/p FNS on 12/01, POD4 #Right shoulder fracture, s/p CRIF on 12/01 GLF after tripping on slippers while at daughter's home. No LOC. Patient is visiting from [place]. Head CT (-). Hip XR & CT pelvis revealed acute impacted right subcapital hip fracture. Shoulder and humerus XR revealed acute fractures of humeral head and neck. Shoulder fracture placed in sling; => CRIF Orthopedics consulted for surgical repair of right hip fracture Cardiology consulted for clearance: METS < 4, RCRI 0 points => high risk surgery with cardiology follow-up Echo: Normal LV & RV size and function. EF 55-60%. Moderate to severe with V-max 3.8 m/s. Severe posterior MAC and moderate anterior MAC with mild mitral stenosis. Moderate to severe MR. Moderate TR. Mild to moderate AI. Moderately dilated LA LA and mildly dilated RA. ? Orthopedics consulted, status post surgical repair of right hip fracture ? Physical therapy: Home health physical therapy on discharge ? Eliquis 2.5 mg twice daily for DVT prophylaxis ? Pain management: acetaminophen and oxycodone; Dilaudid for breakthrough pain or prior to PT (give Zofran prior to Dilaudid) ? Encouraged to use IS to prevent post-op atelectasis #ESRD on PD #Antonia's granulomatosis Labs consistent with ESRD Daughter states that family has materials for peritoneal dialysis for approximately 10 to 14 days as of 12/06. ? Nephro consulted, appreciate recommendations: Peritoneal dialysis session - 1.5 L wash via cycler ? Sevelamer 800 mg 3 times daily for hyperphosphatemia ? Avoid nephrotoxic medications when possible and renally dose medication ? Pending PPD read at 2048 on 12/06 ? Pending auth for [facility] for peritoneal dialysis materials #Constipation #Gastritis Started aggressive bowel regimen with scheduled senna twice daily, MiraLAX daily; added Movantik to prevent opioid induced constipation Maalox as needed 4 times daily for gastritis ? Added mineral oil enema #SOB, resolved, off oxygen Overnight (11/30-) patient became SOB, desatted into 80s with improvement on NC and after PD CXR consistent with vascular congestion, mild CHF picture. DDx: Fluid overload state from IV fluids vs 2L PD cycler (family uses 1.5L at home) vs progression of Antonia's CT chest & ANCA+ in [place]; will see if we can get the results via patient portal from patient's son ? Will likely need outpatient pulm follow up ? Will adjust breathing treatments to match home Breztri inhaler #HTN #? HFpEF (EF 55-60%), not in acute exacerbation SBP fairly normal for patient's age, with pain likely contributing to elevation ? Continue with pain management ? See echo results above ? Cardiology following, appreciate recs ? Resumed patient's home metoprolol to prevent rebound tachycardia; prn labetalol #Aortic stenosis, moderate-severe Murmur appreciated; and seen on echo ? Cardiology following; maintain euvolemic state ? Recommend to have cardiology follow up outpatient #History of CVA #HLD ? Resumed her home atorvastatin Hospital management: Disposition: POD4, s/p hip fracture repair/reduction of shoulder fracture; starting PT; continue PD per nephro; HH-PT on DC Fluids: none Diet: renal, nepro Lines: PIV DVT prophylaxis: eliquis 2.5 mg BID GI prophylaxis: protonix, as needed maalox CODE STATUS: full code ----- Plan discussed with attending physician Dr. David Brewer MD PGY-1 Internal Medicine Attending Provider Attestation/Addendum I reviewed labs, imaging, EKG, home medications and prior available records. Face to face evaluation was performed by me. I have personally examined the patient and discussed assessment and plan with the IM team. I reviewed the resident note and agree with the plan with exceptions as below. Impacted right subcapital hip fracture Right shoulder fracture ESRD on peritoneal dialysis Essential hypertension Leukocytosis Status post internal fixation on 12/01 Management of pain as needed: Will use oral oxycodone 5 mg and increase the dose to 10 mg with breakthrough pain Started Eliquis 2.5 mg twice daily PT evaluation after OR: Recommended home with home health Ordered hospital bed, wheelchair, and bedside commode. Discussed with social work case manager Ordered home health Right shoulder sling. No surgical intervention needed Trend WBC: Downtrending Consulted nephrology for dialysis recommendations: Started peritoneal dialysis. Will transition to peritoneal dialysis in [place] however will need the results of the hepatitis B and TB prior to approval Resumed home metoprolol. Monitor BP Constipation management with senna and MiraLAX. Daughter wants Movantik prescription on discharge Likely discharge tomorrow 12/07. Follow-up with social work case manager. Update daughter who is a raw mill operator
--- NOTE | 2024-12-06 14:15 | PD.RESPRO ---
Documentation for date of: 12/06/24 Subjective Subjective Interval history: No acute events overnight.?Patient seen and examined at bedside this AM.?Patient reported difficulty sleeping last night due to noise and alarms by the bed. She also reported difficulty breathing which was not relieved by the breathing treatment. Later it subsided and she denies shortness of breath this morning. Labs and vitals were reviewed. 24-hour telemetry reviewed. HR remained in the 80s, no events. BP is controlled ranging 125/53 to 153/72. Patient is saturating 100% on room air. Labs showed WBC 14.5, Hgb 7.6, Na 132, K 3.0, Cl 94, BUN 47, creatinine 6.4, GFR 6.?Daughter updated via phone and recommended to follow up in Dr. Olivares's cardiology clinic. No further complaints at this time. Awaiting discharge per primary team. Review of systems otherwise negative except what is mentioned above. Exam Vital Signs Temp Pulse Resp BP Pulse Ox O2 Del Method O2 Flow Rate 96.9 F 79 18 125/53 L 100 Room Air 1 12/06/24 11:53 12/06/24 12:08 12/06/24 12:08 12/06/24 11:53 12/06/24 12:08 12/06/24 11:53 12/06/24 04:00 FiO2 1 12/06/24 04:00 Narrative Exam Physical Exam General: Awake and in no acute distress. Conversational and non-toxic appearing. HEENT: Normocephalic, atraumatic, mucous membranes moist. Heart: Regular rate and rhythm, positive murmur in aortic area, pulmonic area and mitral area. Lungs: Clear to auscultation with no wheezing or crackles. Abdomen: Soft, nondistended, nontender, positive bowel sounds. ?No guarding or rebound tenderness. Neurologic: Alert and oriented x3, no gross neurological deficit, and patient able to move all 4 extremities. Extremities: Right arm in sling, dressing intact right leg, no redness/swelling noted. Skin: No rash or ecchymoses. Objective Labs 12/06/24 04:35 12/06/24 04:35 Labs: Laboratory Results - last 24 hr 12/06/24 04:35 WBC 14.5 H RBC 2.54 L Hgb 7.6 L Hct 22.9 L MCV 90 MCH 29.9 MCHC 33.2 RDW Std Deviation 49.1 H Plt Count 332 Neut % (Auto) 77 Lymph % (Auto) 12 [place] % (Auto) 6 Eos % (Auto) 3 Baso % (Auto) 0 Neut # (Auto) 11.1 H Lymph # (Auto) 1.7 [place] # (Auto) 0.9 H Eos # (Auto) 0.4 Baso # (Auto) 0.1 Immature Gran # (Auto) 0.32 H Absolute Nucleated RBC 0.02 H Immature Gran % 2 H Nucleated RBC % 0 Sodium 132 L Potassium 3.0 L Chloride 94 L Carbon Dioxide 25.9 Anion Gap 12 BUN 47 H Creatinine 6.4 H* Estim Creat Clear Calc 5.1 L eGFR 6 L* BUN/Creatinine Ratio 7 L Glucose 155 H Calculated Osmolality 279 Calcium 8.7 Corrected Calcium 9.4 Phosphorus 3.6 Albumin 3.1 L Quality Measures Quality Measures VTE prophylaxis Advance care planning discussed with:: patient Assessment & Plan Assessment Current Active Medications: Generic Name Dose Route Start Last Admin Trade Name Freq PRN Reason Stop Dose Admin Acetaminophen 650 mg 11/29/24 21:28 12/06/24 09:11 Acetaminophen 325 Mg Tablet PO 12/29/24 21:27 650 mg Q6H PRN Administration Fever >100.5 and mild pain 1-3 Al Hydrox/Mg Hydrox/Simethicone 30 ml 12/02/24 10:33 Mg Hyd/Al Hyd/Ramon (Maalox Reg) Susp 30 Ml Udc PO 01/01/25 10:32 Q4HR PRN UPSET STOMACH/INDIGESTION Albuterol/Ipratropium 3 ml 11/30/24 01:00 12/06/24 12:04 Albuterol/Ipratropium (Duoneb) Rt Annika 3 Ml Nebu INH 12/30/24 00:59 3 ml Q6HRRT SABRINA Administration Apixaban 2.5 mg 12/02/24 09:00 12/06/24 09:10 Apixaban 2.5 Mg Tablet PO 01/01/25 08:59 2.5 mg BID SABRINA Administration Atorvastatin Calcium 40 mg 12/05/24 21:00 12/05/24 21:02 Atorvastatin Calcium 20 Mg Tablet PO 01/04/25 20:59 40 mg HS SABRINA Administration Budesonide 0.25 mg 11/29/24 21:45 12/06/24 06:38 Budesonide Rt 0.25 Mg/2 Ml Nebu INH 12/29/24 21:44 0.25 mg BIDRT SABRINA Administration Hydromorphone HCl 0.5 mg 12/04/24 22:00 Hydromorphone Inj 2 Mg/Ml Vial IVP 12/09/24 21:59 Q3HR PRN Breakthrough pain, & before PT Labetalol HCl 10 mg 11/29/24 21:46 Labetalol Inj 5 Mg/Ml Vial 20 Ml IVP 12/29/24 21:41 Q3H PRN SBP >180mmHg Lidocaine 1 patch 12/01/24 09:00 Lidocaine 5% 1 Patch TOP 12/31/24 08:59 UD PRN PAIN Protocol Metoprolol Tartrate 12.5 mg 11/29/24 21:45 12/06/24 09:12 Metoprolol Tartrate 25 Mg Tablet PO 12/29/24 21:44 12.5 mg BID SABRINA Administration Naloxegol 25 mg 12/05/24 09:00 12/06/24 09:17 Naloxegol Oxalate 25 Mg Tablet (Non-Formulary) PO 01/04/25 08:59 Not Given QDAY SABRINA Ondansetron HCl 4 mg 12/01/24 17:07 12/04/24 10:43 Ondansetron Inj 2 Mg/Ml Inj 2 Ml IV 12/31/24 17:06 4 mg Q6HR PRN Administration NAUSEA OR VOMITING Oxycodone/Acetaminophen 1 tab 12/04/24 22:00 12/06/24 09:26 Oxycodone/Apap 5/325 Tablet PO 12/09/24 21:59 1 tab Q6HR PRN Administration PAIN SCALE 4-10(Mod-Sev Pantoprazole Sodium 40 mg 11/30/24 09:00 12/06/24 09:11 Pantoprazole 40 Mg Tablet PO 12/30/24 08:59 40 mg QDAY SABRINA Administration Pharmacy Consult 1 each 11/29/24 21:47 Pharmacy Renal Dose Adjustment 1 Ea XX 12/29/24 21:46 PRN PRN CONSULT Polyethylene Glycol 17 gm 12/02/24 10:45 12/06/24 09:27 Polyethylene Glycol 17 Gm Packet PO 01/01/25 10:44 Not Given QDAY SABRINA Sennosides 1 tab 12/02/24 10:45 12/06/24 09:11 Senna Tablet PO 01/01/25 10:44 1 tab BID SABRINA Administration Protocol Sevelamer Carbonate 800 mg 11/30/24 17:30 12/06/24 11:38 Sevelamer Carbonate 800 Mg Tablet PO 12/30/24 17:29 800 mg TIDWM SABRINA Administration Plan Assessment and plan: Summary: Ms. 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 #Diastolic heart failure, EF 60%, 2019, NHYA class III #Moderate to severe aortic stenosis #Preoperative cardiac risk assessment - completed Patient presented status post ground-level mechanical fall, has right hip and right shoulder fracture, orthopedics consulted for cardiology clearance. Patient denied any dizziness, presyncope, loss of consciousness and mentions that she remembers the incident clearly. Patient does have murmur in aortic area, mitral area. Otherwise patient is on peritoneal dialysis, does have history of diastolic heart failure, was admitted to the hospital previously for CHF exacerbation. Patient does have shortness of breath on mild exertion, independent ADLs, walks using a walker at baseline, does have shortness of breath on activities of daily living, reports is able to walk about 50-60 steps without shortness of breath. Patient baseline METS less than 4 per history. EKG showed NSR with acute ST-T changes history of ischemia. Cholesterol 138, LDL 83, HDL 43, Triglycerides 58; Hemoglobin A1c 5.2%; TSH 0.41, free t4 1.29 Patient does not have any unstable or active arrhythmias. Patient does not have any history of any CAD does not have any acute ischemic heart disease symptoms or signs at the present point of time.? Patient does have history of diastolic heart failure and is not in overt heart failure at the present point of time No history of any diabetes mellitus requiring insulin Patient does have history of ESRD on PD with baseline creatinine greater than 2. Patient also has history of stroke with remote more than 15 years. As noted above, patient does not have any active cardiac conditions and his RCRI risk score is 0 with with a low risk of 3.9% risk of major adverse cardiac events Echo 11/30/2024: Normal LV size and function. EF 55-60%. Diastolic dysfunction present but cannot be graded. Normal RV size and function. Estimated RVSP moderately elevated RVSP 55 mm hg. Moderate to Severe . AV vmax 3.8 m/s, Mean PG 38 mm hg. LATRICE 0.5 sq cm. Severe posterior mac AND moderate anterior MAC with mild mitral stenosis mean PG 5 mm hg. Moderate to sevre MR. moderate TR and mild to moderate AI. Moderately dilated LA and mildly dilated RA. As noted above patient has moderate to severe aortic stenosis with a valve area of 0.5 cm? by the V-max is only 3.8 m/s and mean PG 38 mmHg along with a history of moderate PAH, mild mitral stenosis, moderate to severe MR, moderate TR which makes her high risk for the above surgery but not a primary diuresis as patient does not have critical aortic stenosis and the V-max is still 4 m/s with normal LVEF. Her overall EF is normal at 55 to 60% with normal RV function RVSP is only estimated to be in moderately increased at 55 mmHg. Discussed with orthopedic surgeon Dr. Ramirez as well as the anesthesiologist Dr. Mendes and the patient's daughter Dr. Patel about the high cardiac risk for the surgery and the she will need further evaluation of her valvular heart disease but cannot be done in emergently as she is not a surgical AVR candidate and will need complete evaluation for TAVR as outpatient, The patient needs an orthopedic surgery which is considered urgent and emergent for her at present point of time -should proceed with surgery as long as the patient, family as well as the surgeon agreed that she is at high risk of the surgery with higher incidence of complications given her age and comorbidities including end-stage renal disease and heart disease, diastolic heart failure Recommendations: -Patient is status post surgery without any cardiac complications, will continue to monitor -Will need close outpatient follow-up for further evaluation of the severe aortic stenosis, follow-up in clinic 1 to 2 weeks after discharge #Right Hip Fracture (Acute impacted right subcapital fracture) status post Synthes implant, 2 hole plate 12/01/2024 #Right Shoulder Fracture (Acute humeral head and neck fracture) status post closed reduction treatment 12/01/2024 #Status post ground-level mechanical fall Patient presented status post ground-level mechanical fall, has right hip and right shoulder fracture, orthopedics consulted for cardiology clearance. Patient denied any dizziness, presyncope, loss of consciousness and mentions that she remembers the incident clearly. Humerus x-ray shows acute fractures humeral head and neck (comminuted fracture and humeral head through greater tuberosity) Shoulder x-ray acute fracture of humeral head and neck Pelvis CT shows acute impacted right subcapital hip fracture Patient is postop day 1 status post Synthes implant femoral neck right hip fracture with 2 hole plate and closed treatment of fracture of neck and head of right humerus by orthopedics. Patient had the procedure without any complications. -Patient on Eliquis 2.5 twice daily for DVT prophylaxis #Hyperlipidemia Lipid panel shows cholesterol 138, LDL 83, HDL 43, triglycerides 58 -Continue home dose atorvastatin 40 mg daily #Hypertension Patient on metoprolol tartrate at home for blood pressure management, resumed by primary team. #Asthma On DuoNeb breathing treatment, resumed budesonide. Patient complaining of mild shortness of breath is on Ventolin and Breztri inhaler at home. #End-stage renal disease on peritoneal dialysis #Donna's Granulomatosis, diagnosed 25 years ago End-stage renal disease on peritoneal dialysis secondary to Antonia's for the past 3 to 4 years Nephrology consult following patient closely #History of CVA, 15 years ago #Osteoarthritis, Osteoporosis #GERD Thank you for the consult and allowing to participate in the care of the patient. Cardiology will continue to follow. Patient plan of care was discussed with the attending physician, Dr. Olivares. Lucy Holguin, PGY-2 Attending Provider Attestation/Addendum I have personally seen and examined the patient separately on the above date of service and discussed the plan of care with the resident. I reviewed the resident Dr. Jeannie Holguin consultation progress note and agree with the resident findings and plan in the note above and have also edited the documentation to reflect my findings and plan. Patient to be discharged today and recommended to follow-up with me in the office in the next 1 to 2 weeks to continue further evaluation of the severe aortic stenosis as outpatient. Patient will be going home with home PT. Patient right now on metoprolol tartrate 12.5 mg twice daily and will need to be on afterload reducing agents like losartan if the blood pressure continues to be high. Discussed with the patient's daughter Dr. Patel in detail regarding the plan of care Jori Olivares M.D. Interventional Cardiology
--- NOTE | 2024-12-06 14:40 | PC.CC ---
Jo informed me that pt will have virtual appointment tomorrow at 1500 with [facility] for establishing PCP. Possible dc tomorrow.
--- NOTE | 2024-12-06 15:10 | PC.SS ---
SS update: patient is pending TB test to fax to [facility]. patient to return home upon d/c and follow up with the [facility], to get established with [facility] as [place] and does not have current local PCP.
[2024-12-06] MEDS: ATORVASTATIN CALCIUM 20 MG TABLET 40 MG PO (20:54)
[2024-12-07] VITALS (12 sets, daily range): BP systolic 115–142; BP diastolic 54–69; PULSE 73–97; RESP 17–99; TEMP 36.5–37.2; O2SAT 96–100; BMI 12.0
[2024-12-07] MEDS: ALBUTEROL/IPRATROPIUM (Duoneb) RT SOL 3 ML NEBU INH ×4 (04:02→18:08)
--- NOTE | 2024-12-07 04:02 | PC.RT ---
pt called for tx c/o sob. 0100 tx given now. see notes for more info.
[2024-12-07 05:57] LABS: Basophils % (Auto) 0 % (0-2.5); Eosinophils # (Auto) 0.5 Thou/mm3 (0.0-0.5); Eosinophils % (Auto) 3 % (0-10); Hematocrit 25.2 % (36.0-46.0); Immature Granulocytes % (Auto) 3 % (0-0); Immature Granulocytes Auto 0.44 Thou/mm3 (0.00-0.00); Lymphocytes # (Auto) 2.2 Thou/mm3 (1.0-4.8); Lymphocytes % (Auto) 13 % (10-50); Mean Corpuscular HGB Conc 32.9 g/dl (31.0-37.0); Mean Corpuscular Hemoglobin 30.2 pg (25.0-35.0); Mean Corpuscular Volume 92 fL (80-100); Monocytes # (Auto) 1.1 Thou/mm3 (0.0-0.8); Monocytes % (Auto) 6 % (0-12); Neutrophils % (Auto) 75 % (37-80); Nucleated Red Blood Cell # 0.05 Thou/mm3 (0.00-0.00); Nucleated Red Blood Cell % 0 /100 WBC (0); Platelet Count 363 Thou/mm3 (140-440); RDW Standard Deviation 49.6 fL (36.4-46.3); Red Blood Count 2.75 Miln/mm3 (4.00-5.20); White Blood Count 17.3 Thou/mm3 (3.6-11.0)
[2024-12-07 06:04] LABS: Hemoglobin 8.3 g/dL (12.0-16.0)
[2024-12-07] MEDS: BUDESONIDE RT 0.25 MG/2 ML NEBU INH ×2 (06:11→18:08)
[2024-12-07 06:31] LABS: Albumin, Serum 3.4 gm/dL (3.4-4.8); Anion Gap 16 (7-16); BUN/Creatinine Ratio 9 Ratio (12-20); Blood Urea Nitrogen 57 mg/dL (9-23); Calcium 9.6 mg/dL (8.3-10.6); Calcium (Corrected) 10.1 mg/dL (8.5-10.1); Carbon Dioxide 26.1 mMol/L (20.0-31.0); Chloride 90 mMol/L (98-107); Creatinine (Component) 6.4 mg/dL (0.6-1.3); Estimated Creatinine Clearance 5.1 mL/min (>60); Glucose 121 mg/dL (74-106); Osmolality,Calculated 281 (275-295); Phosphorous 2.8 mg/dL (2.4-5.1); Potassium 3.5 mMol/L (3.4-5.1); Sodium 132 mMol/L (136-145); eGFR 6 See Note
--- NOTE | 2024-12-07 08:45 | PC.NURSE ---
Updated dr Patel (pts daughter) in regards to plan for first dressing change today and physical therapy to forward with DC orders. Contacted Dr Avery for a possibility to contact Dr Ramirez in regards to dressing order change.
--- NOTE | 2024-12-07 09:07 | PC.SS ---
Addendum entered by TASNEEM Ruiz 12/07/24 16:38: bed side nurse informs ETA with [facility] 6:15pm. Addendum entered by TASNEEM Ruiz 12/07/24 15:24: Patient's daughter Ame aware of financial responsibility and was provided with contact number to [facility] to provide payment over the phone for gurney transportation. Addendum entered by TASNEEM Ruiz 12/07/24 15:12: Spoke with patient's daughter Ame who is informs patient has medical coverage; verified with Gloria pablo financial counselor who confirms patient does not possess medical coverage. Left a voicemail for daughter to return call back to present transportation choices. Addendum entered by TASNEEM Ruiz 12/07/24 14:58: Attempted contact with patient's daughter, Ame regarding her request for transport. Left a voicemail for her to return call as patient does not possess coverage for transportation. Addendum entered by TASNEEM Ruiz 12/07/24 13:29: Notified patient's daughter Ame about patient's appointments with dialysis and [facility]. She is aware she has to follow up with [facility] to get established for services. Daughter informs she will assist with transporting patient home today. Addendum entered by TASNEEM Ruiz 12/07/24 13:19: ?[facility] has provided clinical clearance and gave HD establishment with [facility] for PD services. First appointment is 12/11 at 1:00 PM. Notified medical team, informed them to input Home health orders. Patient to follow up with [facility] follow up appointment and contact [facility] home health services to get established. Addendum entered by TASNEEM Ruiz 12/07/24 10:40: [facility] confirms records for PPD test were received. They inform they will forward them over to the clinic to confirm clinical clearance. Pending response. Original Note: SS follow up: sent out TB results through [facility]. Pending response from [facility]. Patient to follow up with [facility] to get established with [facility] home health services upon discharge home.
[2024-12-07] MEDS: POLYETHYLENE GLYCOL 17 GM PACKET PO (09:15)
[2024-12-07] MEDS: SEVELAMER CARBONATE 800 MG TABLET PO ×2 (09:15→13:01)
[2024-12-07] MEDS: SENNA TABLET 1 TAB PO (09:16)
[2024-12-07] MEDS: METOPROLOL TARTRATE 25 MG TABLET 12.5 MG PO (09:16)
[2024-12-07] MEDS: NALOXEGOL OXALATE 25 MG TABLET (NON-FORMULARY) PO (09:16)
[2024-12-07] MEDS: PANTOPRAZOLE 40 MG TABLET PO (09:16)
[2024-12-07] MEDS: APIXABAN 2.5 MG TABLET PO (09:16)
[2024-12-07] MEDS: HYDROmorphone INJ 2 MG/ML VIAL 0.5 MG IVP ×2 (09:17→15:20)
--- NOTE | 2024-12-07 10:00 | PD.IMPROG ---
Documentation for date of: 12/07/24 Subjective Subjective Interval history: Patient seen and examined at the bedside. No new complaints including any cardiac complaints. Patient is still mildly short of breath which is her baseline. Patient does have severe aortic stenosis and discussed with the daughter to follow-up in my clinic in 7 days and will continue to follow workup for the severe including TAVR evaluation as outpatient. Only on metoprolol tartrate 12.5 mg twice daily for now for hypertension. Will need afterload reduction with losartan if blood pressure is high Rest of the labs and vitals were stable except that the WBC 17.3 and elevated mostly reactive leukocytosis. Hemoglobin is stable around 8.3. Patient should be iron replacement if she is not too constipated. Patient will continue peritoneal dialysis and BUN is 57 creatinine 6.4. Primary team to plan to discharge patient with home with home physical therapy Exam Vital Signs Temp Pulse Resp BP Pulse Ox O2 Del Method O2 Flow Rate 98.9 F 88 18 115/67 100 Room Air 1 12/07/24 16:00 12/07/24 18:08 12/07/24 18:08 12/07/24 16:00 12/07/24 18:08 12/07/24 16:00 12/06/24 04:00 FiO2 1 12/06/24 04:00 Narrative Exam General: Awake and in no acute distress. Conversational and non-toxic appearing. HEENT: Normocephalic, atraumatic, mucous membranes moist. Heart: Regular rate and rhythm,4/6 ESM in aortic area raditing to carotids, PSM mitral area. Lungs: Clear to auscultation with no wheezing or crackles. Abdomen: Soft, nondistended, nontender, positive bowel sounds. ?No guarding or rebound tenderness. Neurologic: Alert and oriented x3, no gross neurological deficit, and patient able to move all 4 extremities. Extremities: Right arm in sling, dressing intact right leg, no redness/swelling noted. Skin: No rash or ecchymoses. Objective Labs 12/07/24 04:47 12/07/24 04:47 Labs: Laboratory Results - last 24 hr 12/05/24 12/07/24 05:32 04:47 WBC 17.3 H RBC 2.75 L Hgb 8.3 L Hct 25.2 L MCV 92 MCH 30.2 MCHC 32.9 RDW Std Deviation 49.6 H Plt Count 363 D Neut % (Auto) 75 Lymph % (Auto) 13 [place] % (Auto) 6 Eos % (Auto) 3 Baso % (Auto) 0 Neut # (Auto) 13.0 H Lymph # (Auto) 2.2 [place] # (Auto) 1.1 H Eos # (Auto) 0.5 Baso # (Auto) 0.0 Immature Gran # (Auto) 0.44 H Absolute Nucleated RBC 0.05 H Immature Gran % 3 H Nucleated RBC % 0 Sodium 132 L Potassium 3.5 D Chloride 90 L Carbon Dioxide 26.1 Anion Gap 16 BUN 57 H Creatinine 6.4 H* Estim Creat Clear Calc 5.1 L eGFR 6 L* BUN/Creatinine Ratio 9 L Glucose 121 H Calculated Osmolality 281 Calcium 9.6 Corrected Calcium 10.1 Phosphorus 2.8 Albumin 3.4 TB Test (QFT) See May Rpt Assessment & Plan A&P Narrative Ms. 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 #Diastolic heart failure, EF 60%, 2019, NHYA class III #Moderate to severe aortic stenosis #Preoperative cardiac risk assessment - completed 12/01/2024 Patient presented status post ground-level mechanical fall, has right hip and right shoulder fracture, orthopedics consulted for cardiology clearance. Patient denied any dizziness, presyncope, loss of consciousness and mentions that she remembers the incident clearly. Patient does have murmur in aortic area, mitral area. Otherwise patient is on peritoneal dialysis, does have history of diastolic heart failure, was admitted to the hospital previously for CHF exacerbation. Patient does have shortness of breath on mild exertion, independent ADLs, walks using a walker at baseline, does have shortness of breath on activities of daily living, reports is able to walk about 50-60 steps without shortness of breath. Patient baseline METS less than 4 per history. EKG showed NSR with acute ST-T changes history of ischemia. Cholesterol 138, LDL 83, HDL 43, Triglycerides 58; Hemoglobin A1c 5.2%; TSH 0.41, free t4 1.29 Echo 11/30/2024: Normal LV size and function. EF 55-60%. Diastolic dysfunction present but cannot be graded. Normal RV size and function. Estimated RVSP moderately elevated RVSP 55 mm hg. Moderate to Severe . AV vmax 3.8 m/s, Mean PG 38 mm hg. LATRICE 0.5 sq cm. Severe posterior mac AND moderate anterior MAC with mild mitral stenosis mean PG 5 mm hg. Moderate to sevre MR. moderate TR and mild to moderate AI. Moderately dilated LA and mildly dilated RA. As noted above patient has moderate to severe aortic stenosis with a valve area of 0.5 cm? by the V-max is only 3.8 m/s and mean PG 38 mmHg along with a history of moderate PAH, mild mitral stenosis, moderate to severe MR, moderate TR which makes her high risk for the above surgery but not a primary diuresis as patient does not have critical aortic stenosis and the V-max is still 4 m/s with normal LVEF. Her overall EF is normal at 55 to 60% with normal RV function RVSP is only estimated to be in moderately increased at 55 mmHg. Discussed with orthopedic surgeon Dr. Ramirez as well as the anesthesiologist Dr. Mendes and the patient's daughter Dr. Patel about the high cardiac risk for the surgery and the she will need further evaluation of her valvular heart disease but cannot be done in emergently as she is not a surgical AVR candidate and will need complete evaluation for TAVR as outpatient, The patient needs an orthopedic surgery which is considered urgent and emergent for her at present point of time -should proceed with surgery as long as the patient, family as well as the surgeon agreed that she is at high risk of the surgery with higher incidence of complications given her age and comorbidities including end-stage renal disease and heart disease, diastolic heart failure Recommendations: -Patient is status post surgery without any cardiac complications, will continue to monitor -Will need close outpatient follow-up for further evaluation of the severe aortic stenosis, follow-up in clinic 1 to 2 weeks after discharge Patient is still mildly short of breath which is her baseline. Patient does have severe aortic stenosis and discussed with the daughter to follow-up in my clinic in 7 days and will continue to follow workup for the severe including TAVR evaluation as outpatient. Only on metoprolol tartrate 12.5 mg twice daily for now for hypertension. Will need afterload reduction with losartan if blood pressure is high Rest of the labs and vitals were stable except that the WBC 17.3 and elevated mostly reactive leukocytosis. Hemoglobin is stable around 8.3. Patient should be iron replacement if she is not too constipated. Patient will continue peritoneal dialysis and BUN is 57 creatinine 6.4. Primary team to plan to discharge patient with home with home physical therapy #Right Hip Fracture (Acute impacted right subcapital fracture) status post Synthes implant, 2 hole plate 12/01/2024 #Right Shoulder Fracture (Acute humeral head and neck fracture) status post closed reduction treatment 12/01/2024 #Status post ground-level mechanical fall Patient presented status post ground-level mechanical fall, has right hip and right shoulder fracture, orthopedics consulted for cardiology clearance. Patient denied any dizziness, presyncope, loss of consciousness and mentions that she remembers the incident clearly. Humerus x-ray shows acute fractures humeral head and neck (comminuted fracture and humeral head through greater tuberosity) Shoulder x-ray acute fracture of humeral head and neck Pelvis CT shows acute impacted right subcapital hip fracture Patient is postop day 1 status post Synthes implant femoral neck right hip fracture with 2 hole plate and closed treatment of fracture of neck and head of right humerus by orthopedics. Patient had the procedure without any complications. -Patient on Eliquis 2.5 twice daily for DVT prophylaxis #Hyperlipidemia Lipid panel shows cholesterol 138, LDL 83, HDL 43, triglycerides 58 -Continue home dose atorvastatin 40 mg daily #Hypertension Patient on metoprolol tartrate at home for blood pressure management, resumed by primary team. #Asthma On DuoNeb breathing treatment, resumed budesonide. Patient complaining of mild shortness of breath is on Ventolin and Breztri inhaler at home. #End-stage renal disease on peritoneal dialysis #Donna's Granulomatosis, diagnosed 25 years ago End-stage renal disease on peritoneal dialysis secondary to Antonia's for the past 3 to 4 years Nephrology consult following patient closely #History of CVA, 15 years ago #Osteoarthritis, Osteoporosis #GERD Management of rest of the medical conditions as per primary team and other consultants. Thank you for the consult and allowing me to participate in the care of the patient. Cardiology will continue to follow. Jori Olivares M.D. Interventional Cardiology Time Spent With Patient Time: Total time spent is greater than 50% in coordination of care (as documented) at patient's floor/unit and/or counseling patient:
--- NOTE | 2024-12-07 13:16 | PC.CM ---
Addendum entered by Adelita Cordova RN 12/08/24 08:32: [facility] accepted patient and start of care date set for 12/09. Original Note: I spoke to Kriss and I let her know to make sure patient understands [facility] can see her once she is established with the [facility]. Kriss states she will let know to put in orders and she will give the information to patient .
--- NOTE | 2024-12-07 14:47 | PC.NURSE ---
Made MD sanchez aware of pts daughter ( Jorge) wish to set up DC transport via [facility] and update on dressing change to forward with DC. MD wise on the floor attempting to obtain a wound order. Also attempt to contact Dr Ramirez no answer voicemail left.
--- NOTE | 2024-12-07 14:53 | PD.RESDS ---
Planned Discharge Date 12/07/24 DS: Providers Provider Date of admission: 11/29/24 20:25 Primary care physician: Physician No Primary/Family Admitting Provider: Kian Lee MD Attending Provider on Admission: Pasquale Hoyos MD Consults: 11/29/24 18:52 Consult to Nephrology Stat Comment: Consulting Provider: Temo Amezcua 11/29/24 18:53 Consult to Cardiology Stat Comment: Consulting Provider: Jori Olivares 11/29/24 21:40 Consult to Orthopedic Stat Comment: Shoulder and Hip fracture of the right side Consulting Provider: Kian Lee 11/29/24 21:43 Referral Physical Therapy Routine Comment: Physician Instructions: 12/01/24 17:07 Referral Physical Therapy Routine Comment: Gait Training. Both legs full weight bear Physician Instructions: Attending Provider on DC: Kevin Brewer MD Discharging Provider: Kevin Brewer MD DS: Diagnosis Problem List Completed Was Problem List Reviewed/Reconciled?: Yes Hospital Course Hospital Course Hospital course: Tho Lee is an 84-year-old female with PMHx of ESRD on peritoneal dialysis, hypertension, hyperlipidemia, and asthma who presented to the ED after she fell down at her home. Patient reported that she was attempting to stand up from a sofa, lost her balance, slipped and fell onto the right side of her body. She denied any loss of consciousness, stating that she remembers the incidents clearly. Patient reported mild trauma to her head, but denied any loss of consciousness thereafter. She called her daughter who came and picked her up and called EMS. Of note, she comes from [place] to visit her children here in [place]. She has been here for the past 1.5 months and has not established care with drain tile machine operator. Imaging revealed acute right subcapital hip fracture, as well as humeral head and neck fracture. Ortho consulted and recommended cardiac clearance. Echo showed moderate to severe aortic stenosis, which was discussed with orthopedics and anesthesia regarding high risk for surgery. Cardio recommended to maintain euvolemic state intraoperatively for but clearance granted. On 12/01, underwent successful femoral neck system for hip fracture and closed reduction and internal fixation of shoulder and started Eliquis 2.5 mg twice daily for DVT prophylaxis. Physical therapy ordered and worked with patient daily. Nephrology also consulted given the patient is on peritoneal dialysis and underwent PD nightly. Otherwise, patient medically cleared for discharge but given that patient is visiting from [place] and undergoes peritoneal dialysis, she will require establishment with dialysis center here. Eventually was able to get accepted at [facility] [place] with first appointment on 12/11. Additionally, patient will not be discharging to SNF and and instead will be discharged with home health physical therapy. However, patient has not been established with PCP so appointment was set up at [facility] for HH-PT referral, which was completed on 12/07. Family states that they have enough dialysate for another ~10 days, which will suffice until their first appointment in 4 days time. She is to follow-up with both cardiology and orthopedics within two weeks of discharge, complete one more week of eliquis 2.5 mg BID for DVT prophylaxis and resume physical therapy via home health. Diagnoses during admission: #Right hip fracture, s/p FNS on 12/01 #Right shoulder fracture, s/p CRIF on 12/01 #ESRD on PD #Antonia's granulomatosis #Constipation #Gastritis #SOB, resolved, off oxygen #HTN #? HFpEF (EF 55-60%), not in acute exacerbation #Aortic stenosis, moderate-severe #History of CVA #HLD Discharge instructions: - Continue Movantik 12.5 mg as needed for opioid-related constipation - Continue eliquis 2.5 mg twice daily for one more week for DVT prophylaxis - Take percocet 5-325 mg as needed every 6 hours for pain - Follow-up at [facility] to establish care and obtain home health referral for physical therapy - Follow-up at [facility] [place] in [place] regarding needs for peritoneal dialysis, with first appointment on 12/11 - Follow-up with day haul or farm charter bus driver, Dr. Olivares, outpatient within 2 weeks of discharge - Follow-up with orthopedic surgeon, Dr. Lee, outpatient within 2 weeks of discharge - Continue all other home medications as prescribed - Return to the ED if symptoms worsen or recur ----- Plan discussed with attending physician Dr. Romain Brewer MD PGY-1 Internal Medicine Time Spent with Patient Time attestation: Total time spent providing and/or coordinating discharge services: Quality: Stroke Pt Provided Written Stroke Discharge Instructions: No Home Health Home Health Referral Orders: 12/06/24 10:28 Home Health Referral Routine Reason For Exam: Home PT Home-Bound The patient must either because of illness or injury, need the aid of supportive devices such as crutches, canes, wheelchairs, and walkers; the use of special transportation; or the assistance of another person in order to leave their place of residence; OR have a condition such that leaving his or her home is medically contraindicated. In addition, the patient also meets the following criteria: patient is normally unable to leave the home and leaving home requires considerable taxing effort. Addendum to Home Health Certification Practitioner's Certification: I certify that the patient has been under my care in the hospital and the care of attending physician (see below). We had a mqlu-oq-adxf encounter on (see date below). My clinical findings indicate that the patient is home bound per the above criteria and the Home Health Services noted in these orders are medically necessary. The primary reason for the arcn-tw-gzgf encounter is related to the fact that the patient requires home health services. Date Certifying Qiqv-rb-Latx Physician Encounter: 12/03/24 Physician's Name who will Assume Oversight for HH Services: Physician No Primary/Family FIELD SERVICER - Community Resources: Yes PT to Evaluate: Yes PT to evaluate and provide a treatmnet plan to increase patient's mobility and strength. Wound Care: No IV Therapy: No RN Safety Evaluation: Yes RN to evaluate and create a plan of care that will produce positive outcomes. Palliative Treatment: No Palliative treatment and evaluate the need for hospice. Home Health Aide - Personal Care: Yes Home Health Aide to assist with any ADL's. 12/07/24 13:39 Home Health Referral Routine Reason For Exam: Right hip arthroplasty- dressing changes, PT, RN Home-Bound The patient must either because of illness or injury, need the aid of supportive devices such as crutches, canes, wheelchairs, and walkers; the use of special transportation; or the assistance of another person in order to leave their place of residence; OR have a condition such that leaving his or her home is medically contraindicated. In addition, the patient also meets the following criteria: patient is normally unable to leave the home and leaving home requires considerable taxing effort. Addendum to Home Health Certification Practitioner's Certification: I certify that the patient has been under my care in the hospital and the care of attending physician (see below). We had a hilm-hz-tzve encounter on (see date below). My clinical findings indicate that the patient is home bound per the above criteria and the Home Health Services noted in these orders are medically necessary. The primary reason for the agio-gh-sufu encounter is related to the fact that the patient requires home health services. Date Certifying Cqhu-yn-Orch Physician Encounter: 12/03/24 Physician's Name who will Assume Oversight for HH Services: Physician No Primary/Family FIELD SERVICER - Community Resources: No PT to Evaluate: Yes PT to evaluate and provide a treatmnet plan to increase patient's mobility and strength. Wound Care: No IV Therapy: No RN Safety Evaluation: Yes RN to evaluate and create a plan of care that will produce positive outcomes. Palliative Treatment: No Palliative treatment and evaluate the need for hospice. Home Health Aide - Personal Care: Yes Home Health Aide to assist with any ADL's. Exam Vital Signs Temp Pulse Resp BP Pulse Ox O2 Del Method O2 Flow Rate 97.7 F 73 18 116/54 L 99 Room Air 1 12/07/24 11:44 12/07/24 13:18 12/07/24 13:18 12/07/24 11:44 12/07/24 13:18 12/07/24 11:44 12/06/24 04:00 FiO2 1 12/06/24 04:00 Narrative Exam General: AOx3, in mild distress due to pain, able to speak full sentences HEENT: NC/AT, mucous membranes moist, bilateral sclera anicteric Cardiovascular: systolic murmur appreciated in aortic and pulmonic regions, regular rate and rhythm, S1/S2 present Pulmonary: clear to auscultation bilaterally, no rales/rhonchi/wheezes Abdominal: soft, non-tender, non-distended, no rebound/guarding, normal bowel sounds present Musculoskeletal: right arm in sling with limited ROM, dressing intact right leg with limited ROM, no redness/swelling noted Skin: warm and dry, intact, no rashes Neuro: CN II-XII intact, no focal deficits Discharge Plan Plan Patient Disposition: Home w/HOME HEALTH Patient condition on transfer: Stable Care Plan Goals: - Continue Movantik 12.5 mg as needed for opioid-related constipation - Continue eliquis 2.5 mg twice daily for one more week for DVT prophylaxis - Take percocet 5-325 mg as needed every 6 hours for pain - Follow-up at [facility] to establish care and obtain home health referral for physical therapy - Follow-up at [facility] [place] in [place] regarding needs for peritoneal dialysis, with first appointment on 12/11 - Follow-up with day haul or farm charter bus driver, Dr. Olivares, outpatient within 2 weeks of discharge - Follow-up with orthopedic surgeon, Dr. Lee, outpatient within 2 weeks of discharge - Continue all other home medications as prescribed - Return to the ED if symptoms worsen or recur Prescriptions/Referrals Prescriptions/Med Rec: New Movantik 12.5 mg tablet 12.5 mg PO QAM PRN (Reason: constipation) Qty: 20 0RF Rx Instructions: must be taken on empty stomach; no food 1 hr after or 2-3 hrs before dose oxycodone-acetaminophen 5-325 mg tablet 1 tab PO Q6H MDD 4 PRN (Reason: pain) Qty: 14 0RF Eliquis 2.5 mg Tablet 2.5 mg PO BID 7 Days Qty: 14 0RF Continued omega-3 fatty acids [Fish Oil Concentrate] 1 CAP capsule 1 cap PO DAILY Qty: 0 ergocalciferol (vitamin D2) [Vitamin D2] 50,000 UNIT capsule 50,000 unit PO QWEEK Qty: 0 Rx Instructions: MONDAYS clopidogrel [Plavix] 75 MG tablet 75 mg PO QDAY Qty: 30 0RF alendronate [Fosamax] 70 mg Tablet 70 mg PO QWEEK Rx Instructions: MONDAYS albuterol sulfate [Ventolin HFA] 90 mcg/actuation Hfa Aerosol Inhaler 2 puff INHALATION QID PRN (Reason: sob) ondansetron HCl [Zofran] 4 mg tablet 4 mg PO Q8H PRN (Reason: nausea and vomiting) Qty: 20 0RF acetaminophen 500 mg Capsule 1,000 mg PO Q6H PRN (Reason: Pain) omeprazole 40 mg Capsule,Delayed Release(Dr/Ec) 40 mg PO DAILY calcium carb, citrate-vit D3 [Citracal-D3 Slow Release] 600 mg calcium- 500 unit Tablet Extended Release 1 tab PO BID atorvastatin 40 mg Tablet 40 mg PO QDAY folic acid 1 mg Tablet 1 mg PO QDAY Qty: 30 0RF fluticasone propion-salmeterol [Advair Diskus] 250-50 mcg/dose Blister With Device 1 inh INHALATION BID Qty: 0 0RF pantoprazole 40 mg tablet,delayed release (DR/EC) PO calcitriol 0.25 mcg capsule 0.25 mcg PO QDAY metoprolol tartrate 25 mg tablet Patient Comments: TAKE 1/2 TABLET WITH FOOD ORALLY TWICE A DAY 90 DAYS Discontinued losartan 50 mg Tablet 50 mg PO QDAY prednisone 20 mg Tablet 20 mg PO DAILY hydralazine 25 mg Tablet 25 mg PO TID Centrum 18-400 mg-mcg Tablet 1 tab PO QDAY prednisone 10 mg Tablet 10 mg PO HS Referrals: Jori Olivares MD [Physician] - (New Address [address] [place] [address]) No Primary/Family,Physician [Primary Care Provider] - Patient/Caregiver Discharge Instructions Education Materials: Understanding Hip Fractures, Fx Hip Surg Hospital After, Fx Hip Surg Home Recovery Print Language: [place] Stand Alone Forms: Saranya Award Info., Patient Portal Info Letter Discharge Order Discharge Orders: Discharge (Routine); Ordered 12/07/24 Ordered By: Kevin Brewer Quality Discharge Quality Measures VTE prophylaxis Attestestation Attestation Face to face evaluation was performed by me. I have personally seen and examined the patient. I discussed the assessment and plan with the entire medicine team. I reviewed available medical records, imaging studies, laboratory results. I agree with the above subjective data, objective findings, assessment and plan except as corrected by me or noted below R hip fr R shoulder fx leukocytosis R hip pain due to above ESRD on PD Antonia's granulomatosis -Patient improved, plan to discharge home with home health, mild leukocytosis could be atelectasis. Right hip wound dressing to be changed our team reached out to surgeon He was out of town, but permission for nurse to change the dressing, patient to follow-up with surgery and PCP after discharge.Sri- More than > 30 minutes spent on the encounter
--- NOTE | 2024-12-07 16:01 | PC.NURSE ---
Dressing change done st per shannon Ramirez's order entered by dr BREWER. Dressing done at bedside with dr Brewer for incision assessment. Gilby intact no s/s of infection. pt tolerated fairy..
--- NOTE | 2024-12-07 16:04 | PC.NURSE ---
Transportation time pending to be set up by dr Patel pts daughter.
--- NOTE | 2024-12-07 17:31 | PC.NURSE ---
Discharge instructions given to Dr Patel (daughter) via telephone.
[2024-12-08 06:38] LABS: Hepatitis B Core Ab,Total* NONREACTIVE
--- NOTE | 2024-12-11 13:15 | PC.NURSE ---
HEMODIALYSIS PRE ASSESSMENT UNDONE D/T ERROR IN SELECTING THIS ITEM ADDED TO THE WORKLIST, THIS PATIENT IS A PERITONEAL DIALYSIS PATIENT.
== END 2024-12-07 18:25 | disposition home health service (06) | DRG 480 ==
LOC: SERX 20:01 → SERHOLD 20:48 → S3NX 23:02
PROVIDERS: Internal Medicine; Registered Nurse General Practice; Student in an Organized Health Care Education/Training Program; Admitting Provider Orthopaedic Surgery; Emergency Provider Emergency Medicine; Visit Provider Internal Medicine
DX: S72.011A Unspecified intracapsular fracture of right femur, initial encounter for closed fracture (principal); N18.6 End stage renal disease; S42.211A Unspecified displaced fracture of surgical neck of right humerus, initial encounter for closed fracture; I50.32 Chronic diastolic (congestive) heart failure; I13.2 Hypertensive heart and chronic kidney disease with heart failure and with stage 5 chronic kidney disease, or end stage renal disease; I69.351 Hemiplegia and hemiparesis following cerebral infarction affecting right dominant side; M31.30 Wegener's granulomatosis without renal involvement; J45.909 Unspecified asthma, uncomplicated; E78.5 Hyperlipidemia, unspecified; Z99.2 Dependence on renal dialysis; K29.70 Gastritis, unspecified, without bleeding; D63.1 Anemia in chronic kidney disease; S72.001A Fracture of unspecified part of neck of right femur, initial encounter for closed fracture; K21.9 Gastro-esophageal reflux disease without esophagitis; K59.03 Drug induced constipation; T40.2X5A Adverse effect of other opioids, initial encounter; E83.39 Other disorders of phosphorus metabolism; W01.0XXA Fall on same level from slipping, tripping and stumbling without subsequent striking against object, initial encounter; Y92.009 Unspecified place in unspecified non-institutional (private) residence as the place of occurrence of the external cause; Z79.899 Other long term (current) drug therapy; Z79.83 Long term (current) use of bisphosphonates; I08.3 Combined rheumatic disorders of mitral, aortic and tricuspid valves; D72.829 Elevated white blood cell count, unspecified; M81.0 Age-related osteoporosis without current pathological fracture
CPT/HCPCS: 36415; 70450; 71045; 72125; 72192; 73030; 73060; 73502; 76000; 80053; 80061; 80069; 80074; 83036; 83615; 83735; 83880; 84100; 84145; 84439; 84443; 84484; 85025; 85610; 85730; 86480; 86580; 86704; 86706; 86850; 86870; 86900; 86901; 86923; 87081; 93005; 93225; 93306; 94640; 96361; 96374; 97162; 97163; 99285; A4217; A4565; A4649; A9270; C1713; J0689; J0690; J1100; J2250; J2270; J2405; J2704; J2795; J3010; J3371; J3475; J3490; J7030; P9016; Q5105; J2598

== ENCOUNTER 2024-12-07 15:25 | Outpatient (AMB) | payer MEDICARE, MEDICAID, SELFPAY ==
--- NOTE | 2024-12-07 13:41 | PD.RESCLINIC ---
Allergies/Meds Allergies & Medications Allergies shrimp Allergy (Severe, Verified 12/07/24 15:31) Wheezing NSAIDS (Non-Steroidal Anti-Inflamma Allergy (Intermediate, Verified 12/07/24 15:31) Swelling Penicillins Allergy (Intermediate, Verified 12/07/24 15:31) Rash Medication Reconciliation ergocalciferol (vitamin D2) 1,250 mcg (50,000 unit) capsule (Vitamin D2) 50,000 unit PO QWEEK #0 caps 11/17/13 [History Confirmed 12/07/24] omega-3 fatty acids 1,000 mg capsule (Fish Oil Concentrate) 1 cap PO DAILY ##0 11/17/13 [History Confirmed 12/07/24] clopidogrel 75 mg tablet (Plavix) 75 mg PO QDAY #30 tabs 09/24/15 [Rx Confirmed 12/07/24] albuterol sulfate 90 mcg/actuation aerosol inhaler (Ventolin HFA) 2 puff inhalation QID PRN sob 08/01/19 [History Confirmed 12/07/24] alendronate 70 mg tablet (Fosamax) 70 mg PO QWEEK 08/01/19 [History Confirmed 12/07/24] calcium ER 600 mg (as carb,cit)-D3 12.5 mcg (500 unit) tablet, ext.rel (Citracal-D3 Slow Release) 1 tab PO BID 08/13/19 [History Confirmed 12/07/24] omeprazole 40 mg capsule,delayed release 40 mg PO DAILY 08/13/19 [History Confirmed 12/07/24] atorvastatin 40 mg tablet 40 mg PO QDAY 08/15/19 [History Confirmed 12/07/24] fluticasone 250 mcg-salmeterol 50 mcg/dose blistr powdr for inhalation (Advair Diskus) 1 inh inhalation BID #0 ea 08/17/19 [Rx Confirmed 12/07/24] folic acid 1 mg tablet 1 mg PO QDAY #30 tabs 08/17/19 [Rx Confirmed 12/07/24] acetaminophen 500 mg capsule 1,000 mg PO Q6H PRN Pain 09/04/19 [History Confirmed 12/07/24] ondansetron HCl 4 mg tablet (Zofran) 4 mg PO Q8H PRN nausea and vomiting #20 tabs 09/04/19 [Rx Confirmed 12/07/24] calcitriol 0.25 mcg capsule 0.25 mcg PO QDAY 11/30/24 [History Confirmed 12/07/24] metoprolol tartrate 25 mg tablet mg 11/30/24 [History Confirmed 12/07/24] pantoprazole 40 mg tablet,delayed release mg PO 11/30/24 [History Confirmed 12/07/24] apixaban 2.5 mg tablet (Eliquis) 2.5 mg PO BID 7 days #14 tabs 12/07/24 [Rx Confirmed 12/07/24] naloxegol 12.5 mg tablet (Movantik) 12.5 mg PO QAM PRN constipation #20 tabs 12/07/24 [Rx Confirmed 12/07/24] oxycodone-acetaminophen 5 mg-325 mg tablet 1 tab PO Q6H PRN pain #14 tabs 12/07/24 [Rx Confirmed 12/07/24] RAZIA Intake Visit Data Collection New Patient or Established: Established Patient (seen at [facility] within 3 years) Seen by Clinical Staff ONLY (RN/RAZIA): No Pain Present Currently: No Pain scale:: 0 Pain Scale Used: [place] D[employer] Required: No PCP or OBGYN visit in last 3 months: No Hx Now: No Do You Feel Safe at Home: Yes Authorities Contacted: N/A Smoking Status Smoking Status: Never smoker For Televisit only Telemed Video/Phone Visit: Yes Verbal consent obtained for Telemed visit?: Yes Verbal Consent witness name: andre murguia ma Telemed Video/Phone visit w/Clinical Staff: 21-30 min Immunization / Flu Flu Vaccine in the Last 12 Months: No Flu Vaccine Exclusion Criteria: No Exclusion Criteria Past Medical History Past Medical History NEUROLOGIC: Positive Neurological Disorders and Cerebrovascular Accident CARDIAC: Positive Cardiac Disorders, Hypercholesterolemia, Edema and Hypertension; Negative Congestive Heart Failure RESPIRATORY: Positive Asthma; Negative Chronic Obstructive Pulmonary Disease (COPD) GASTROINTESTINAL: Positive Gastrointestinal Disorders and Gastroesophageal Reflux Disease GENITOURINARY: Positive Genitourinary Disorders, Renal Disease and Dialysis REPRODUCTIVE: Positive Previous Pregnancies MUSCULOSKELETAL: Positive Osteoporosis ENT: Positive Cataracts (aaron.) ENDOCRINE: Negative Diabetes Mellitus Type 1 or Diabetes Mellitus Type 2 HEMATOLOGIC: Positive Anemia OTHER HISTORY: Positive Hospitalization, Shingles and Chicken Pox; Negative Autoimmune Disease Family History FAMILY HISTORY: Positive Family Respiratory Disorders, Family Cardiac Disorders, Family Cancer and Family Surgery; Negative Family Psychiatric Problems, Family Gastrointestinal Problems or Family Anesthesia Reaction Social History SMOKING STATUS: Smoking status: Never smoker ALCOHOL: Alcohol Intake: Never HOUSING: Housing: House LIVES WITH: Lives With: Children Patient Portal Questionaires Social History Living Situation History Housing: House Tobacco History Smoking Status: Never smoker Alcohol History Alcohol Intake: Never Domestic Abuse History Do You Feel Safe at Home: Yes Review of Systems Report any current symptoms Only answer those that you have currently: Past Medical History Past Medical History Have you ever been diagnosed with any of the following: Neurological Problems Cerebrovascular Accident (CVA): Yes Cardiology Problems Hypercholesterolemia: Yes Congestive Heart Failure: No Edema: Yes Hypertension: Yes Respiratory Problems Chronic Obstructive Pulmonary Disease (COPD): No Asthma: Yes Stomache/Intestinal Problems Gastroesophageal Reflux Disease: Yes Genital/Urinary Problems Renal Disease: Yes Dialysis: Yes Reproductive Problems Previous Pregnancies: Yes Musculoskeletal Problems Osteoporosis: Yes Head,Eye,Nose,Throat Problems Cataracts: Yes (aaron.) Endocrine Problems Diabetes Mellitus Type 1: No Diabetes Mellitus Type 2: No Blood Problems Anemia: Yes Other Problems Hospitalization: Yes Autoimmune Disease: No Shingles: Yes Chicken Pox: Yes History of Present Illness HPI Narrative Patient is a 84 years old female with past medical history of ESRD on peritoneal dialysis following up with a presidential support specialist in [place]'s name is Dr. Virk, hypertension, hyperlipidemia, asthma had tele-medicine appointment to establish primary care. Kay is being discharged today after admission for right hip and humerus fractures after ground level fall. Visit was conducted via telemedicine however patient is followed by me in hospital and was evaluated today. She continues to have moderate pain in her right hip. She is otherwise fine, denies any fever, chills, SOB, chest pain, abdominal pain, nausea, vomiting, diarrhea. She reports constipation likely due to opioid analgesics. Review of Systems Review of Systems Systems Reviewed: All systems reviewed, normal except as documented Objective/Exam Narrative Physical exam: *Physical exam was performed by me in hospital. Gen: Well-developed and well-nourished elderly female. HEENT: NCAT, PERRLA, EOMI, MMM, anicteric conjunctivae. CVS: normal S1 and S2. RRR. No M/R/G. Resp: CTA B/L. No rhonchi, rales, crackles or wheezing. Abd: soft, non-tender, non-distended. BS+ in all 4 quadrants. MSK: RUE in sling, dressing is clean, mildly tender to touch; right hip dressing is clean, tender to touch and ROM. No edema or rash. Neuro: CN II-XII grossly intact. Alert and oriented x3. Psych: appropriate mood and affect. Assessment & Plan Diagnosis / Problem List (1) Closed fracture of neck of right femur: Status: Acute Assessment & Plan: Patient underwent FNS on 12/01. Plan: Follow up with orthopedic surgery as scheduled. Follow instructions provided by orthopedic team. Pain control as needed ordered by hospital team. Take percocet 5-325 mg as needed every 6 hours for pain. Home health referral sent today for wound care. (2) Closed fracture of neck of right humerus: Status: Acute Assessment & Plan: Patient underwent CRIF on 12/01. Plan: Follow up with orthopedic surgery Dr. Lee as scheduled. Follow instructions provided by orthopedic team. Pain control as needed ordered by hospital team. Take percocet 5-325 mg as needed every 6 hours for pain. Home health referral sent today for home physical therapy. Continue Eliquis 2.5 mg twice daily for DVT prophylaxis. (3) Chronic kidney insufficiency: Status: Acute Assessment & Plan: Patient has ESRD and is PD, has enough supplies for 1 month. She is followed by presidential support specialist in [place] Dr. Virk. Plan: Follow-up at [facility] regarding needs for peritoneal dialysis, with first appointment on 12/11. (4) CHF (congestive heart failure): Status: Acute Assessment & Plan: Echo from 11/30 showed EF 55-60% with diastolic dysfunction. Plan: Follow-up with grain roaster, Dr. Olivares, outpatient within 2 weeks of discharge. Continue home medications as prescribed. (5) Constipation due to opioid therapy: Status: Acute Assessment & Plan: Patient is on Percocet for pain control. Plan: Continue Movantik 12.5 mg as needed for opioid-related constipation. Plan Plan of care discussed with attending Dr. Mcqueen. Pedro Salgado MD, PGY 2. Disclaimer: This note was dictated by speech recognition. Minor errors in brassiere cup mold cutter may be present due to voice recognition software. Advanced Care Planning Advance care planning discussed with:: patient and child Office Procedures [facility] Level of Care Nursing/Assessment Patient Status: Established Patient Nursing Assessment/Reassessment: Medication Reconciliation and Update PMH in EMR Coordination of Care: Complex Care and Chronic Disease 1-5, Consent,records obtained, informed consent, Education Simp Pt/Fam, Ref for ancillary service and Staff clarify orders Established Patient Charge Established Patient Point Assignment: 90 Established Patient Point Charge: EP Level 3 (80-115)
--- NOTE | 2024-12-11 16:23 | AM.PHNO ---
Nursing Note I have received a call from patient's daughter stating that patient developed vomiting while on Percocet. Decision was made to switch Percocet to [place] to try different pain control. She also requested of Zofran refill and Protonix to change it to twice daily. I was asked about weightbearing physical therapy for the patient and discussed it with orthopedic surgeon Dr. Lee who will provide this information to home health staff. The daughter also mentioned that patient had some bloody streaks in the emesis but no major bleeding and was recommended to continue Eliquis, she was counseled on possible GI bleeding symptoms, was recommended to stop Eliquis immediately and take patient to ER if major bleeding develops. Plan of care discussed with attending Dr. Orr. Pedro Salgado MD, PGY 2. Disclaimer: This note was dictated by speech recognition. Minor errors in medical instrument technician may be present due to voice recognition software. *[facility] Office Visit complete [facility] Offive Visit Complete [facility] Visit Complete?: No
--- NOTE | 2024-12-13 08:24 | AM.PHNO ---
Nursing Note I have received phone call from patient's daughter requesting new antinausea medication and changing her Zofran to disintegrating tablets. Daughter also reported that patient is having poor appetite and asked if I can give her appetite stimulant. Daughter reported no bloody emesis but patient continues to vomit especially after pain control medications, her pain is mild to moderate and she does not want to try of her pain control medications at this moment. Will prescribe her promethazine in addition to Zofran and monitor patient. Plan of care discussed with attending Dr. Orr. Pedro Salgado MD, PGY 2. Disclaimer: This note was dictated by speech recognition. Minor errors in landfill attendant may be present due to voice recognition software. *[facility] Office Visit complete [facility] Offive Visit Complete [facility] Visit Complete?: No
== END 2024-12-07 16:00 | disposition home or self-care (01) ==
LOC: HODAHC 15:25
PROVIDERS: Supervising Provider Internal Medicine; Visit Provider Student in an Organized Health Care Education/Training Program
DX: S72.001D Fracture of unspecified part of neck of right femur, subsequent encounter for closed fracture with routine healing (principal); W18.30XD Fall on same level, unspecified, subsequent encounter; I12.0 Hypertensive chronic kidney disease with stage 5 chronic kidney disease or end stage renal disease; N18.6 End stage renal disease; I50.9 Heart failure, unspecified; K59.03 Drug induced constipation; T40.2X5D Adverse effect of other opioids, subsequent encounter; Z99.2 Dependence on renal dialysis
CPT/HCPCS: 99213; G0463

== ENCOUNTER 2024-12-24 10:07 | Inpatient (IN) | payer MEDICARE, MEDICAID, SELFPAY ==
[2024-12-24] VITALS (26 sets, daily range): BP systolic 127–172; BP diastolic 65–107; PULSE 86–124; RESP 16–100; TEMP 36.7–37.4; O2SAT 2–100; BMI 24.2; BMI 25.0
--- NOTE | 2024-12-24 10:15 | EDNOTE_ITS ---
ED SOB =RME/HPI General Chief Complaint: Shortness of Breath/Dyspnea Stated Complaint: SOB XWK Time Seen by Provider: 12/24/24 10:12 Arrival date/time: 12/24/24 10:07 Limitations: no limitations RME / HPI RME / HPI Narrative: DR. HOLLINS MAIN ED EVALUATION: 84 year old female presents to the Emergency Department with complaint of shortness of breath. Per daughter, who is a pediatrist, thinks it could be related to fluid overload. Movement and laying flat exacerbate her shortness of breath. Per daughter, patient was on Plavix after her surgery and discontinued it after she had streaks of blood in her vomit 1-2 weeks ago, but not back on it. Patient had nausea and vomiting after discharge but not anymore. Patient was recently admitted for a closed fracture of neck of right femur and discharged on 12/07/24; had a surgical fixation of the right hip on 12/01/24 due to subcapital fracture of the right hip by Dr. Lee. 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 Leo, hypertension, hyperlipidemia, diastolic heart failure, diastolic heart failure, CVA 15 years ago, asthma, and osteoarthritis. Social Hx: No tobacco, alcohol, or substance use. Related Data Home Medications ?Medication ?Instructions ?Recorded ?Confirmed ergocalciferol (vitamin D2) 1,250 50,000 unit PO QWEEK #0 caps 11/17/13 12/07/24 mcg (50,000 unit) capsule (Vitamin D2) omega-3 fatty acids 1,000 mg 1 cap PO DAILY ##0 12/07/24 capsule (Fish Oil Concentrate) albuterol sulfate 90 mcg/actuation 2 puff inhalation Q ID PRN sob 08/01/19 12/07/24 aerosol inhaler (Ventolin HFA) alendronate 70 mg tablet (Fosamax) 70 mg PO QWEEK 07/0812/07/24 calcium ER 600 mg (as carb,cit)-D3 1 tab PO BID 12/07/24 12.5 mcg (500 unit) tablet, ext.rel (Citracal-D3 Slow Release) atorvastatin 40 mg tablet 40 mg PO QDAY 08/15/1912/07 acetaminophen 500 mg capsule 1,000 mg PO Q6H PRN Pain 09/04/19 12/07/24 calcitriol 0.25 mcg capsule 0.25 mcg PO QDAY 11/30/24 12/07/24 metoprolol tartrate 25 mg tablet mg 11/30/24 12/07/24 Previous Rx's ?Medication ?Instructions ?Recorded clopidogrel 75 mg tablet (Plavix) 75 mg PO QDAY #30 ta bs 09/24/15 fluticasone 250 mcg-salmeterol 50 1 inh inhalation BID #0 ea 08/17/19 mcg/dose blistr powdr for inhalation (Advair Diskus) folic acid 1 mg tablet 1 mg PO QDAY #30 tabs naloxegol 12.5 mg tablet (Movantik) 12.5 mg PO QAM PRN constipation 12/07/24 #20 tabs hydrocodone 5 mg-acetaminophen 325 1 tab PO Q6H PRN pa in #20 tabs 12/11/24 mg tablet megestrol 400 mg/10 mL (40 mg/mL) 40 mg PO QDAY #240 m L 12/13/24 oral suspension ondansetron 4 mg disintegrating 4 mg PO Q6H PRN nausea and 12/13/24 tablet vomiting #30 tabs pantoprazole 20 mg tablet,delayed 20 mg PO BID #60 tab s 12/13/24 release (Protonix) promethazine 25 mg tablet 25 mg PO TID PRN nausea and 12/13/24 vomiting #60 tabs Allergies Allergy/AdvReac Type Severity Reaction Status Date / Time shrimp Allergy Severe Wheezing Verified 12/24/24 10:09 NSAIDS (Non-Steroidal Allergy Intermediate Swelling Verified 12/24/24 10:09 Anti-Inflamma Penicillins Allergy Intermediate Rash Verified 12/24/24 10:09 Review of Systems Review of Systems Systems Reviewed: All systems reviewed, normal except as documented Narrative Review of Systems: GEN: No fever, no chills, no weight loss EYES: No discharge, no visual changes, no pain HEENT: No ear pain, no congestion, no sore throat PULM: + shortness of breath, no cough, no congestion CV: No chest pain, no dyspnea on exertion, no palpitations GI: No nausea, no vomiting, no diarrhea, no pain, no constipation : No frequency, no urgency and no dysuria MUSC/SKEL: No joint pain, no back pain SKIN: No rash PSYCH: No hallucinations, no depression HEME/LYMPH: No easy bleeding or bruising tendencies NEURO: No weakness, no headache Past Medical History Past Medical History NEUROLOGIC: Positive Neurological Disorders and Cerebrovascular Accident CARDIAC: Positive Cardiac Disorders, Hypercholesterolemia, Edema and Hypertension RESPIRATORY: Positive Asthma GASTROINTESTINAL: Positive Gastrointestinal Disorders and Gastroesophageal Reflux Disease GENITOURINARY: Positive Genitourinary Disorders, Renal Disease and Dialysis REPRODUCTIVE: Positive Previous Pregnancies MUSCULOSKELETAL: Positive Musculoskeletal Disorders and Osteoporosis ENT: Positive Cataracts (aaron.) HEMATOLOGIC: Positive Anemia OTHER HISTORY: Positive Hospitalization, Shingles and Chicken Pox Family History FAMILY HISTORY: Positive Family Respiratory Disorders, Family Cardiac Disorders, Family Cancer and Family Surgery Social History SMOKING STATUS: Never smoker SUBSTANCE USE: does not use ALCOHOL: Never ED Exam General Limitations: Present no limitations General appearance: Present alert, anxious and other (tachypneic) Head Head exam: Present atraumatic, normocephalic and normal inspection Eye Eye exam: Present normal appearance, PERRL and EOMI ENT ENT exam: Present normal exam, normal oropharynx and mucous membranes moist Neck Neck exam: Present full ROM and trachea midline Expanded Neck Exam Neck exam focused ED: Present JVD (1-2 cm JVD at 30 degrees) Chest Chest inspection: Present normal inspection (anterior is clear) and symmetric chest wall rise Respiratory Respiratory exam: Present normal lung sounds bilaterally and respiratory distress (tachypneic) Cardiovascular Cardiovascular exam: Present other (3-4 murmur aortic stenosis auscultated at left lower chest) Abdominal Exam Abdominal exam: Present soft, distention (slight distention) and normal bowel sounds; Absent mass, pulsatile mass or hernia Extremities Exam Extremities exam: Present full ROM and pedal edema (1-2+ pitting edema bilaterally) Back Exam Back exam: Present normal inspection and full ROM Neurological Exam Neurological exam: Present alert, oriented X3, CN II-XII intact, normal gait and reflexes normal; Absent motor sensory deficit Psychiatric Psychiatric exam: Present normal affect and normal mood Skin Skin exam: Present warm, dry, intact and normal color Course Quality Measures none Orders Category Date Time Status COVID-19 Screening Questionnaire NOW Care 12/24/24 13:[address] Screening NOW [facility] 12/24/24 10:54 Active Absorber Operator NOW [facility] 12/24/24 10:44 Active Continuous Pulse Oximetry NOW Care 12/24/24 10:44 Completed Decision to Admit X1 Care 12/24/24 13:32 Active EKG (ED ONLY) *Do not use* NOW [facility] 12/24/24 10:23 Completed Insert IV NOW [facility] 12/24/24 10:44 Active Intake and Output Routine Care 12/24/24 10:44 Ordered Transfuse,blood/blood products NOW Care 12/24/24 11:39 Active Consult to Nephrology Stat Cons 12/24/24 13:[address] angio chest Stat Exams 12/24/24 10:53 Completed CXRP [XR chest 1V portable] Stat Exams 12/24/24 10:53 Completed EKG (ED Only) Stat Exams 12/24/24 10:23 Draft B-Type Natriuretic Peptide Stat Lab 12/24/24 10:58 Completed BMP [Basic Metabolic Panel] Stat Lab 12/24/24 13:15 Completed CBC Stat Lab 12/24/24 10:58 Completed Comprehensive Metabolic Panel Stat Lab 12/24/24 10:58 Completed INR [Prothrombin Time with INR] Stat Lab 12/24/24 10:58 Completed PTT [Partial Thromboplastin Time] Stat Lab 12/24/24 10:58 Completed Troponin I Stat Lab 12/24/24 10:58 Completed Troponin I Stat Lab 12/24/24 13:15 Completed Type and Screen Stat Lab 12/24/24 12:00 Results prbc [Red Blood Cells] Stat Lab 12/24/24 12:00 Results Diltiazem Inj [Cardizem Inj] Med 12/24/24 10:55 Discontinued 15 mg IV X1 ONE DiphenhydrAMINE INJ [Benadryl Inj] Med 12/24/24 12:13 Discontinued 25 mg IVP X1 ONE Famotidine Inj [Pepcid Inj] Med 12/24/24 12:13 Discontinued 20 mg IVP X1 ONE MethylPREDNISolone.* [SoluMEDROL Inj] Med 12/24/24 12:13 Discontinued 125 mg IVP X1 ONE Sodium Chloride 0.9% 1000 ml [Ns] 1,000 ml Med 12/24/24 10:44 Active IV 100 mls/hr Oxygen Delivery NOW RT 12/24/24 10:44 Active Vital Signs Vital signs: Vital Signs Pulse Rate 124 H 12/24/24 10:15 Respiratory Rate 24 H 12/24/24 10:15 Blood Pressure 164/86 H 04/20/25 10:15 Pulse Oximetry (%) 97 12/24/24 10:15 Oxygen Delivery Method Room Air 12/24/24 10:15 Shortness of Breath / Dyspnea MDM Narrative MDM Narrative:: I, Leonora Shepherd, am scribing for and in the presence of Dr. Hollins. 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 Leo, hypertension, hyperlipidemia, diastolic heart failure, diastolic heart failure, CVA 15 years ago, asthma, and osteoarthritis. Patient was recently admitted for a closed fracture of neck of right femur and discharged on 12/07/24; had a surgical fixation of the right hip on 12/01/24 due to subcapital fracture of the right hip by Dr. Lee. How is presenting disease/condition affected by chronic disease/condition?: exacerbated by Evaluation data The following diagnostics were reviewed and interpreted by me:: lab results, radiology exam(s) and EKG tracing(s) Lab and/or radiology exams considered but not ordered:: none Interpretation Summary: EKG#1: EKG at 1026 hours. Interpreted by me: atrial fibrillation with RVR, 131 BMP, incomplete right bundle branch block, left anterior fascicular block, LVH, nonspecific ST-T wave changes, WA interval blank ms, QRS 117 ms, QT/QTc 354/431, P-R-T axis blank, -45, and 75 Chest x-ray: my interpretation shows mild CHF, prominent vascular congestion Hgb 6.6, anemic. Will transfuse 2 units of blood. Potassium is 3.0, hypokalemia. RADIOLOGY Procedure(s): XR chest 1V portable Accession Number(s): [id number] cc: Iglesia Hollins MD; Henok Mary MD; MIKE OLIVA~ Examination: AP chest single view Technique: AP portable semiupright chest single view Exam date and time: December 24, 2024, 11:10 AM Comparison November 30, 2024 Indications: Shortness of breath today Findings: Mild CHF Mild to moderate enlargement left ventricle. Prominent vascular congestion including central vascular engorgement Early septal edema Prominent osteopenia Acute/subacute fractures humeral neck on the right Impression: Mild CHF Dictated By: Henok Mary MD Procedure(s): CT angio chest Accession Number(s): [id number] cc: Iglesia Hollins MD; Henok Mary MD; MIKE OLIVA~ Examination: CTA chest with intravenous contrast 2-D reconstructions 3-D reconstructions, vascular Date and time of exam: December 24, 2024 1202 hours Indications: Chest pain shortness of breath today CTDI: vol (mGy) 11.8 DLP: (mGycm) 404 Technique: Multiple axial sections of the thorax have been obtained. 3 mm slice thickness, from below the hemidiaphragms to above the apices of the lungs. Mediastinal and lung density settings have been obtained. 2-D sagittal and coronal reconstructions. 3-D angiographic renderings, 3-D volume renderings, 3D post processing, vascular maximum intensity projections obtained. Contrast administered is 100 cc Isovue-370. Low dose protocols were performed. One or more of the following dose reduction techniques were used; automated exposure control, adjustment of the mA and/or KV according to patient size, use of iterative reconstruction technique. Findings: No thoracic aortic aneurysm dilatation or dissection No pulmonary artery emboli 8mm pulmonary nodule right upper lobe 12 mm pulmonary nodule lingular segment Prominent vascular congestion Septal pulmonary edema Enlarged thyroid lobes with poorly defined nodules Tiny air droplets beneath right hemidiaphragm coronal image 30 axial image 93 Significant osteopenia Impression: Negative for pulmonary artery emboli Noncalcified pulmonary nodules as above, with this study as baseline recommend 6 month follow-up CT chest without contrast Suspicious for tiny air droplet beneath right hemidiaphragm, recommend CT scan abdomen pelvis follow-up Dictated By: Henok Mayr MD Medications / Prescriptions Medications or Prescriptions considered but not ordered:: none Medication administrations:: Medication Administration History Sodium Chloride (Ns) 1,000 mls @ 100 mls/hr IV .Q10H ONE Stop: 12/24/24 20:43 Discontinued Medications Diltiazem HCl (Diltiazem Inj 5 Mg/Ml Vial 5 Ml) 15 mg IV X1 ONE Stop: 12/24/24 10:56 Last Admin: 12/24/24 13:26 Dose: 15 mg Documented By: LEODAN Diphenhydramine HCl (Diphenhydramine Inj 50 Mg/Ml Vial) 25 mg IVP X1 ONE Stop: 12/24/24 12:14 Last Admin: 12/24/24 12:29 Dose: 25 mg Documented By: LEODAN Famotidine (Famotidine Inj 10 Mg/Ml Vial 2 Ml) 20 mg IVP X1 ONE Stop: 12/24/24 12:14 Last Admin: 12/24/24 12:29 Dose: 20 mg Documented By: LEODAN Methylprednisolone Sodium Succinate (Methylprednisolone Sod Succ 62.5 Mg/Ml 2ml Vial) 125 mg IVP X1 ONE Stop: 12/24/24 12:14 Last Admin: 12/24/24 12:29 Dose: 125 mg Documented By: see above Consultations Consultation(s) initiated? (list below): Yes Consultation #1 (Physician, Specialty, Details): Discussed test HPI, PMHx, lab, radiology results and/or management with hospital ist. Will admit for further evaluation and management. Accepts patient for admission. Time: 13:27 Diagnosis Shortness of Breath Differential Diagnosis: acute exacerbation of chronic obstructive airways disease, congestive heart failure, community acquired pneumonia, asthma with exacerbation and pulmonary embolism Most likely diagnosis given after review of the tests above:: New onset atrial fibrillation CHF Renal disease Peritoneal dialysis Tachypnea Anemia Hypokalemia Admission Indicated Admission indicated?: indicated Admission Request Was there a request for admission?: Yes Admission Attestation Admission request attestation: Discussed case with [] from Hospitalist service regarding admission. Discussed patients ED course, exam findings, labs, and radiology results. The Hospitalist [agrees,declines] to accept the patient for admission. Disposition Plan Disposition Plan: Admit Discharge Plan Plan Patient Disposition: Admit Acute Care w/in Hospital Prescriptions/Referrals Prescriptions/Med Rec: No Action hydrocodone-acetaminophen 5-325 mg tablet 1 tab PO Q6H MDD 20 mg PRN (Reason: pain) Qty: 20 0RF pantoprazole [Protonix] 20 mg tablet,delayed release (DR/EC) 20 mg PO BID Qty: 60 0RF megestrol 400 mg/10 mL (40 mg/mL) suspension 40 mg PO QDAY Qty: 240 0RF promethazine 25 mg tablet 25 mg PO TID PRN (Reason: nausea and vomiting) Qty: 60 0RF ondansetron 4 mg tablet,disintegrating 4 mg PO Q6H PRN (Reason: nausea and vomiting) Qty: 30 0RF Rx Instructions: disintegrating tablet omega-3 fatty acids [Fish Oil Concentrate] 1 CAP capsule 1 cap PO DAILY Qty: 0 ergocalciferol (vitamin D2) [Vitamin D2] 50,000 UNIT capsule 50,000 unit PO QWEEK Qty: 0 Rx Instructions: MONDAYS clopidogrel [Plavix] 75 MG tablet 75 mg PO QDAY Qty: 30 0RF alendronate [Fosamax] 70 mg Tablet 70 mg PO QWEEK Rx Instructions: MONDAYS albuterol sulfate [Ventolin HFA] 90 mcg/actuation Hfa Aerosol Inhaler 2 puff INHALATION QID PRN (Reason: sob) acetaminophen 500 mg Capsule 1,000 mg PO Q6H PRN (Reason: Pain) calcium carb, citrate-vit D3 [Citracal-D3 Slow Release] 600 mg calcium- 500 unit Tablet Extended Release 1 tab PO BID atorvastatin 40 mg Tablet 40 mg PO QDAY folic acid 1 mg Tablet 1 mg PO QDAY Qty: 30 0RF fluticasone propion-salmeterol [Advair Diskus] 250-50 mcg/dose Blister With Device 1 inh INHALATION BID Qty: 0 0RF calcitriol 0.25 mcg capsule 0.25 mcg PO QDAY metoprolol tartrate 25 mg tablet Patient Comments: TAKE 1/2 TABLET WITH FOOD ORALLY TWICE A DAY 90 DAYS Movantik 12.5 mg tablet 12.5 mg PO QAM PRN (Reason: constipation) Qty: 20 0RF Rx Instructions: must be taken on empty stomach; no food 1 hr after or 2-3 hrs before dose Problem List Clinical Impression: New onset atrial fibrillation, CHF (congestive heart failure), Renal disease, Peritoneal dialysis catheter in place, Tachypnea, Anemia, Hypokalemia Patient/Caregiver Discharge Instructions Print Language: Trinidadian Stand Alone Forms: Saranya Award Info., Patient Portal Info Letter
--- NOTE | 2024-12-24 10:23 | EKG_ITS ---
[facility] Test Date: 2024-12-24 Pat Name: WHIT TITUS Department: Room: - Gender: Female Manager Willow: : 1940 Requested By: Hank Beckett (TECHNICIAN [employer]) Order Number: [id number] Reading MD: Hank Beckett (TECHNIC[employer]) Measurements Intervals [place] Rate: 131 P: MA: QRS: -45 QRSD: 117 T: 75 QT: 354 QTc: 523 Interpretive Statements ATRIAL FIBRILLATION WITH RAPID VENTRICULAR RESPONSE INCOMPLETE RIGHT BUNDLE BRANCH BLOCK [90+ ms QRS DURATION, TERMINAL R IN V1/V2, 40+ ms S IN I/aVL/V4/V5/V6] LEFT ANTERIOR FASCICULAR BLOCK [QRS AXIS <= -45, QR IN I, RS IN II] POSSIBLE LEFT VENTRICULAR HYPERTROPHY [VOLTAGE CRITERIA PLUS LAE OR QRS WIDENING] NONSPECIFIC ST & T-WAVE ABNORMALITY Compared to ECG 09/02/2019 23:01:54 Left anterior fascicular block now present T-wave abnormality now present Sinus rhythm no longer present /store/S0/[id number].pdf
--- NOTE | 2024-12-24 10:53 | XR_ITS ---
Examination: AP chest single view Technique: AP portable semiupright chest single view Exam date and time: December 24, 2024, 11:10 AM Comparison November 30, 2024 Indications: Shortness of breath today Findings: Mild CHF Mild to moderate enlargement left ventricle. Prominent vascular congestion including central vascular engorgement Early septal edema Prominent osteopenia Acute/subacute fractures humeral neck on the right Impression: Mild CHF
--- NOTE | 2024-12-24 10:53 | XR_ITS ---
Examination: CTA chest with intravenous contrast 2-D reconstructions 3-D reconstructions, vascular Date and time of exam: December 24, 2024 1202 hours Indications: Chest pain shortness of breath today CTDI: vol (mGy) 11.8 DLP: (mGycm) 404 Technique: Multiple axial sections of the thorax have been obtained. 3 mm slice thickness, from below the hemidiaphragms to above the apices of the lungs. Mediastinal and lung density settings have been obtained. 2-D sagittal and coronal reconstructions. 3-D angiographic renderings, 3-D volume renderings, 3D post processing, vascular maximum intensity projections obtained. Contrast administered is 100 cc Isovue-370. Low dose protocols were performed. One or more of the following dose reduction techniques were used; automated exposure control, adjustment of the mA and/or KV according to patient size, use of iterative reconstruction technique. Findings: No thoracic aortic aneurysm dilatation or dissection No pulmonary artery emboli 8mm pulmonary nodule right upper lobe 12 mm pulmonary nodule lingular segment Prominent vascular congestion Septal pulmonary edema Enlarged thyroid lobes with poorly defined nodules Tiny air droplets beneath right hemidiaphragm coronal image 30 axial image 93 Significant osteopenia Impression: Negative for pulmonary artery emboli Noncalcified pulmonary nodules as above, with this study as baseline recommend 6 month follow-up CT chest without contrast Suspicious for tiny air droplet beneath right hemidiaphragm, recommend CT scan abdomen pelvis follow-up
[2024-12-24 11:08] LABS: Basophils % (Auto) 0 % (0-2.5); Eosinophils # (Auto) 0.2 Thou/mm3 (0.0-0.5); Eosinophils % (Auto) 2 % (0-10); Immature Granulocytes % (Auto) 1 % (0-0); Immature Granulocytes Auto 0.14 Thou/mm3 (0.00-0.00); Lymphocytes # (Auto) 1.6 Thou/mm3 (1.0-4.8); Lymphocytes % (Auto) 15 % (10-50); Mean Corpuscular Hemoglobin 29.9 pg (25.0-35.0); Mean Corpuscular Volume 91 fL (80-100); Monocytes # (Auto) 1.1 Thou/mm3 (0.0-0.8); Monocytes % (Auto) 11 % (0-12); Neutrophils # (Auto) 7.5 Thou/mm3 (1.8-7.7); Neutrophils % (Auto) 71 % (37-80); Nucleated Red Blood Cell # 0.02 Thou/mm3 (0.00-0.00); Nucleated Red Blood Cell % 0 /100 WBC (0); Platelet Count 486 Thou/mm3 (140-440); RDW Standard Deviation 52.1 fL (36.4-46.3); Red Blood Count 2.21 Miln/mm3 (4.00-5.20); White Blood Count 10.5 Thou/mm3 (3.6-11.0)
[2024-12-24 11:31] LABS: Hemoglobin 6.6 g/dL (12.0-16.0)
[2024-12-24 11:34] LABS: B-Type Natriuretic Peptide 1691 pg/mL (0-100)
[2024-12-24 11:37] LABS: Alanine Aminotransferase 28 U/L (10-49); Albumin, Serum 3.2 gm/dL (3.4-4.8); Albumin/Globulin Ratio 1.2 (1.2-2.2); Alkaline Phosphatase 88 U/L (46-116); Anion Gap 11 (7-16); Aspartate Amino Transferase 45 U/L (0-34); BUN/Creatinine Ratio 9 Ratio (12-20); Bilirubin,Total 0.6 mg/dL (0.3-1.2); Blood Urea Nitrogen 61 mg/dL (9-23); Calcium 8.5 mg/dL (8.3-10.6); Calcium (Corrected) 9.1 mg/dL (8.5-10.1); Carbon Dioxide 30.4 mMol/L (20.0-31.0); Chloride 96 mMol/L (98-107); Creatinine (Component) 6.6 mg/dL (0.6-1.3); Estimated Creatinine Clearance 4.9 mL/min (>60); Globulin 2.7 gm/dL (2.3-3.5); Glucose 104 mg/dL (74-106); Osmolality,Calculated 291 (275-295); Sodium 137 mMol/L (136-145); Total Protein 5.9 gm/dL (5.7-8.2); eGFR 6 See Note
[2024-12-24 11:40] LABS: Troponin I 0.144 ng/mL (0.0-0.045)
[2024-12-24 11:45] LABS: INR 1.1 (0.9-1.3); Partial Thromboplastin Time 26.5 Seconds (22.0-36.0); Prothrombin Time 11.9 Seconds (9.0-12.2)
[2024-12-24] MEDS: DiphenhydrAMINE INJ 50 MG/ML VIAL 25 MG IVP (12:29)
[2024-12-24] MEDS: FAMOTIDINE INJ 10 MG/ML VIAL 2 ML 20 MG IVP (12:29)
[2024-12-24] MEDS: MethylPREDNISolone SOD SUCC 62.5 MG/ML 2ML VIAL 125 MG IVP (12:29)
[2024-12-24] MEDS: DILTIAZEM INJ 5 MG/ML VIAL 5 ML 15 MG IV (13:26)
[2024-12-24 14:18] LABS: Anion Gap 11 (7-16); BUN/Creatinine Ratio 9 Ratio (12-20); Blood Urea Nitrogen 62 mg/dL (9-23); Calcium 8.2 mg/dL (8.3-10.6); Carbon Dioxide 30.2 mMol/L (20.0-31.0); Chloride 94 mMol/L (98-107); Creatinine (Component) 6.6 mg/dL (0.6-1.3); Estimated Creatinine Clearance 4.9 mL/min (>60); Glucose 98 mg/dL (74-106); Osmolality,Calculated 287 (275-295); Potassium 3.1 mMol/L (3.4-5.1); Sodium 135 mMol/L (136-145); eGFR 6 See Note
[2024-12-24 14:19] LABS: Troponin I 0.139 ng/mL (0.0-0.045)
--- NOTE | 2024-12-24 15:55 | ESHP_ITS ---
Documentation for date of: 12/24/24 [facility] History of Present Illness Chief complaint: Shortness of breath History of present illness: Mr. 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 Patient is significantly short of breath, unable to talk in complete sentences, unable to provide most of the history. Patient's daughter was able to provide history, patient was recently discharged from the hospital on December 07, 2024 status post hip fracture repair. Per daughter patient has been getting increasingly short of breath, does report having difficulty with peritoneal dialysis at home, reported that patient is unable to tolerate dialysis while lying flat, hence was tolerating dialysis while sitting. Patient was discharged on Eliquis 2.5 twice daily, which the patient took for about 12 to 14 days post discharge, did have an episode of bloody emesis and transition to Plavix. Patient was unable to follow-up with cardiology outpatient, has been working with physical therapy, unable to mobilize much due to significant pain and shortness of breath. Patient also does have significant underlying moderate to severe aortic stenosis as evidenced on previous echocardiogram and follows cardiology outpatient. Patient is established with Dr. Leo corporate controller in [place]. Patient otherwise denies any blood in stool or any other episodes of blood in vomit, denies any chest pain headache, syncope, dizziness or presyncopal episodes. ED course: On presentation in ED blood pressure 164/86, heart rate 124, respiratory 24, temp 98.9, O2 sat 97 on room air. ED labs significant for hemoglobin 6.6, RBC 2.21, platelet count 486, sodium 135, potassium 3.1, chloride 94, BUN 62, creatinine 6.6, GFR 6, calcium 9.1, AST 45, troponin 0.144, BNP 1691. Chest CTA in ED was negative for pulmonary embolism and chest x-ray showed mild congestive heart failure Patient was given methylprednisolone 125 x 1, famotidine 20 g IV x 1, Benadryl 25 IV x 1, Dilt 15 mg IV x 1 in the emergency department. Review of Systems Review of Systems Narrative Review of Systems: ROS: -CONSTITUTIONAL: Denies weight loss, fever and chills. -HEENT: Denies changes in vision and hearing. -RESPIRATORY: Positive for SOB and denies cough. -CV: Denies palpitations and Chest Pain. -GI: Denies abdominal pain, nausea, vomiting,constipation and diarrhea. -: Denies dysuria and urinary frequency. -MSK: Denies myalgia and joint pain. -SKIN: Denies rash and pruritus. -NEUROLOGICAL: Denies headache and syncope. -PSYCHIATRIC: Denies recent changes in mood. Denies anxiety and depression. 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 Exam Vital Signs Temp Pulse Resp BP Pulse Ox O2 Del Method O2 Flow Rate 98.1 F 87 22 H 164/90 H 2 L Nasal Cannula 3 12/24/24 15:40 12/24/24 15:40 12/24/24 15:40 12/24/24 15:40 12/24/24 15:26 12/24/24 15:26 12/24/24 15:06 Narrative Exam General: AOx3, moderate respiratory distress, speaks in 2-3 word sentences HEENT: NC/AT, mucous membranes moist Cardiovascular: irregular rhythm,,4/6 ESM in aortic area raditing to carotids, PSM mitral area. Pulmonary: on 2 L NC, moderate respiratory distress, crackles auscultated bilaterally, speaks in short sentences, accessory muscle use noted Abdominal: soft, non-tender, non-distended, no rebound/guarding, normal bowel sounds present Musculoskeletal: 3+ pitting bilateral lower extremity edema Skin: warm and dry, intact, no rashes Neuro: CN II-XII intact, no focal deficits Results: Labs 12/25/24 05:15 12/25/24 05:15 Labs: Short CBC 12/24/24 Range/Units 10:58 WBC 10.5 (3.6-11.0) Thou/mm3 Hgb 6.6 L* (12.0-16.0) g/dL Hct 20.0 L* (36.0-46.0) % Plt Count 486 H D (140-440) Thou/mm3 BMP 12/24/24 12/24/24 10:58 13:15 Sodium 137 135 L Potassium 3.0 L 3.1 L Chloride 96 L 94 L Carbon Dioxide 30.4 30.2 BUN 61 H 62 H Creatinine 6.6 H* 6.6 H* Glucose 104 98 Calcium 8.5 8.2 L Cardiac Enzymes 12/24/24 12/24/24 Range/Units 10:58 13:15 Troponin I 0.144 H* 0.139 H* (0.0-0.045) ng/mL Liver Function 12/24/24 Range/Units 10:58 Total Bilirubin 0.6 (0.3-1.2) mg/dL AST 45 H (0-34) U/L ALT 28 (10-49) U/L Alkaline Phosphatase 88 (46-116) U/L Albumin 3.2 L (3.4-4.8) gm/dL Quality Measures Quality Measures none Advance care planning discussed with:: patient and child Medications Home Medications and Allergies Home Medications ?Medication ?Instructions ?Recorded ?Confirmed ?Type ergocalciferol (vitamin D2) 1,250 50,000 unit PO QWEEK #0 caps 11/17/13 12/07/24 History mcg (50,000 unit) capsule (Vitamin D2) omega-3 fatty acids 1,000 mg 1 cap PO DAILY ##0 12/07/24 History capsule (Fish Oil Concentrate) albuterol sulfate 90 mcg/actuation 2 puff inhalation Q ID PRN sob 08/01/19 12/07/24 History aerosol inhaler (Ventolin HFA) alendronate 70 mg tablet (Fosamax) 70 mg PO QWEEK 07/0812/07/24 History calcium ER 600 mg (as carb,cit)-D3 1 tab PO BID 12/07/24 History 12.5 mcg (500 unit) tablet, ext.rel (Citracal-D3 Slow Release) atorvastatin 40 mg tablet 40 mg PO QDAY 12/10/19 04/03 /25 History acetaminophen 500 mg capsule 1,000 mg PO Q6H PRN Pain 09/04/19 12/07/24 History calcitriol 0.25 mcg capsule 0.25 mcg PO QDAY 11/30/24 12/07/24 History metoprolol tartrate 25 mg tablet mg 11/30/24 12/07/24 History Allergies Allergy/AdvReac Type Severity Reaction Status Date / Time shrimp Allergy Severe Wheezing Verified 12/24/24 10:09 NSAIDS (Non-Steroidal Allergy Intermediate Swelling Verified 12/24/24 10:09 Anti-Inflamma Penicillins Allergy Intermediate Rash Verified 12/24/24 10:09 Visit Medications Acetaminophen (Acetaminophen 325 Mg Tablet) 650 mg PO Q6H PRN PRN Reason: Pain (1-3) & Fever >100.3 Stop: 01/23/25 14:40 Hydromorphone HCl (Hydromorphone Inj 2 Mg/Ml Vial) 0.25 mg IVP Q2H PRN PRN Reason: PAIN SCALE 7-10 (Severe Stop: 12/29/24 14:40 Sodium Chloride (Ns) 1,000 mls @ 100 mls/hr IV .Q10H ONE Stop: 12/24/24 20:43 Ondansetron HCl (Ondansetron Inj 2 Mg/Ml Inj 2 Ml) 4 mg IV Q6H PRN; Protocol PRN Reason: NAUSEA OR VOMITING Stop: 01/23/25 14:40 Oxycodone/Acetaminophen (Oxycodone/Apap 5/325 Tablet) 1 tab PO Q6H PRN PRN Reason: PAIN SCALE 4-6 (Moderate Stop: 12/29/24 14:40 Pantoprazole Sodium (Pantoprazole Inj 40 Mg Vial) 40 mg IVP Q12HR SABRINA Stop: 01/23/25 20:59 Sennosides (Senna Tablet) 1 tab PO BID SABRINA; Protocol Stop: 01/23/25 20:59 Discontinued Medications Albuterol/Ipratropium (Albuterol/Ipratropium (Duoneb) Rt Annika 3 Ml Nebu) 3 ml INH Q2HR PRN PRN Reason: SHORTNESS OF BREATH OR WHEEZE Stop: 01/23/25 14:40 Albuterol/Ipratropium (Albuterol/Ipratropium (Duoneb) Rt Annika 3 Ml Nebu) 3 ml INH X1 ONE Stop: 12/24/24 15:53 Diltiazem HCl (Diltiazem Inj 5 Mg/Ml Vial 5 Ml) 15 mg IV X1 ONE Stop: 12/24/24 10:56 Last Admin: 12/24/24 13:26 Dose: 15 mg Diphenhydramine HCl (Diphenhydramine Inj 50 Mg/Ml Vial) 25 mg IVP X1 ONE Stop: 12/24/24 12:14 Last Admin: 12/24/24 12:29 Dose: 25 mg Famotidine (Famotidine Inj 10 Mg/Ml Vial 2 Ml) 20 mg IVP X1 ONE Stop: 12/24/24 12:14 Last Admin: 12/24/24 12:29 Dose: 20 mg Iron Sucrose (Iron Sucrose Cplx Inj 20 Mg/Ml Vial 5 Ml) 100 mg IVP X1 ONE Stop: 12/24/24 15:17 Methylprednisolone Sodium Succinate (Methylprednisolone Sod Succ 62.5 Mg/Ml 2ml Vial) 125 mg IVP X1 ONE Stop: 12/24/24 12:14 Last Admin: 12/24/24 12:29 Dose: 125 mg Assessment & Plan Plan Assessment and plan: Summary: Mr. 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 Patient admitted to the hospital for fluid overload, CHF exacerbation management. 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 On presentation was satting well on room air, eventually needed supplemental oxygen to maintain saturation more than 92, BNP on presentation 1691, CTA negative for PE chest x-ray showed mild CHF. Bilateral crackles heard on physical exam, 3+ bilateral lower extremity pitting edema. Echocardiogram on 11/30/2024: Normal LV size and function. EF 55-60%. Diastolic dysfunction present but cannot be graded. Normal RV size and function. Estimated RVSP moderately elevated RVSP 55 mmHg. Moderate-severe . AV Vmax 3.8 m/s, mean PG 38 mmHg. LATRICE 0.5 cm^2. Severe posterior MAC and moderate anterior MAC with mild mitral stenosis. Mean PG 5 mmHg. Moderate-severe MR. Moderate TR and mild to moderate AI. Moderately dilated LA and mildly dilated RA. Plan: - Nephrology consulted, patient will be scheduled for emergent peritoneal dialysis. - Strict intake and output - Fluid restriction - Monitor daily weights - Cardiology consulted, appreciate recommendations #Acute on chronic normocytic normochromic anemia Multifactorial reason, does have CKD, transfused 1 unit PRBC in ED Plan: - Follow iron panel, B12 folate and LDH - Follow reticulocyte count - Transfuse 1 unit PRBC post dialysis #? MAT vs new onset atrial fibrillation with RVR vs frequent PACs Patient presents with shortness of breath and found to have abnormal EKG that showed irregular, sinus rhythm with multiple PACs, incomplete RBBB, and QTc 523. EKG also showing multiple different P wave morphologies. Of note, patient has moderately dilated LA as seen on echo on 11/30/2024 in setting of moderate-severe aortic stenosis. Thus, with multiple P wave morphologies, likely patient has MAT rather than new onset atrial fibrillation with RVR. Additionally, K noted to be low at 3.1 and hemoglobin also low at 6.6 that may be contributing/aggravating factors. [id number] score of 7 and HAS-BLED score of 5. Given recent history of blood- tinged emesis as well as hemoglobin of 6.6, recommend to hold off on AC if A- fib. Of note, patient noted to have home Rx of clopidogrel 75 mg, recommend to hold as well. ? Started on metoprolol succinate 25 mg daily ? Elevated monitoring #GERD #Gastritis #? GI bleed Patient did have an episode of hematemesis outpatient, 14 days postdischarge from hospital, was switched from Eliquis to Plavix. Hemoglobin on presentation was 6.6, was transfused 1 unit PRBC. Patient on Tums 4 times a day at home - Started on Protonix 40 IV twice daily #Hyperlipidemia Lipid panel from previous admission: cholesterol 138, LDL 83, HDL 43, triglycerides 58 ? Continue home dose atorvastatin 40 mg daily #Hypertension Patient on metoprolol tartrate at home for blood pressure management ? Recommend metoprolol succinate 25 mg daily as above #Asthma Longstanding history of asthma, uses inhalers at home - DuoNeb as needed #History of CVA Hold Plavix, suspicion of GI bleed #Right hip fracture, s/p FNS on 12/01 #Right shoulder fracture, s/p CRIF on 12/01 #Osteoarthritis Consulted physical therapy #Antonia's granulomatosis Stable currently, was on rituximab in the past DVT prophylaxis: No DVT prophylaxis in setting of suspected GI bleed and anemia GI prophylaxis: IV Protonix twice daily Diet: Clear liquid diet Lines: Peripheral IV Code status: Full code Case discussed with Attending Dr. Samm Mcgowan PGY1 Disclaimer: This note was dictated by speech recognition. 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 Attending Provider Attestation/Addendum I have discussed and was present for the essential components of the history, physical examination, diagnosis, and treatment plan with the resident. I agree with the patient's care as documented by the resident and amended herein by me. Messi Quijano DO. Patient seen and evaluated in the emergency department. In short, 84-year-old female with a significant past medical history of ESRD on peritoneal dialysis, heart failure, granulomatosis with polyangiitis diagnosed 25 years ago, previously treated on rituximab, hypertension, hyperlipidemia, CVA approximately 15 years ago, asthma and osteoarthritis, presented to the ED for worsening shortness of breath since her last discharge. Patient subsequently admitted for fluid overload in setting of ESRD on PD. Of note, the patient was recently discharged from the hospital on 07 December 2024 status post hip fracture repair. Parent was discharged on Eliquis 2.5 twice daily at that time however was discontinued approximately 2 weeks later due to an episode of hematemesis. Patient denies any hematochezia. Patient was also on Plavix for stroke prophylaxis which was also held. On arrival, patient was visibly short of breath, BP 137/67 mmHg, patient was on 2 L nasal cannula, SpO2 94% at time of arrival, respiratory rate 27. Significant labs included a WBC of 10.5, hemoglobin 6.6, platelet count 46, potassium 3.1, sodium 135, chloride 94, bicarb 30, normal BUN/creatinine. Troponin slightly elevated however down trended to 0.136 however patient is ESRD. BNP elevated at 1691. EKG demonstrated what appeared to be multifocal atrial tachycardia with PVCs. Chest x-ray demonstrated mild CHF. Of note, the patient did have an echocardiogram performed on 11/30/2024 which demonstrated normal LV size and function, EF 55%, diastolic function was present but could not be graded, RVSP 55, moderate to severe AAS, moderate to severe MR and moderate TR and mild to moderate AI. Moderate LA dilated LA and moderately dilated RA was also noted. A CTA chest was performed which demonstrated no pulmonary emboli, it was suspicious for tiny air droplet beneath right hemidiaphragm and which we will follow-up with additional imaging. Patient will be admitted to acute telemetry, nephrology consulted, will restart peritoneal dialysis today. Optimally, a temporary dialysis catheter will be placed however the family refused placement as we did not have IR at the time and they did not want any other staff to perform the procedure. Cardiology is also been consulted, Dr. Leisa Ortega who the patient had follow-up with in the past. Will hold anticoagulations at this time in setting of possible GI bleed, FOBT was ordered and is pending. Will also order iron studies for anemia workup, appreciate specialist recommendations. Although this document has been carefully reviewed, there may still be some phonetic and other typographical errors. These errors are purely grammatical due to imperfections in the software program and should not be construed in any way to compromise the substance of the patient's medical care during this visit.
[2024-12-24] MEDS: ALBUTEROL/IPRATROPIUM (Duoneb) RT SOL 3 ML NEBU INH ×3 (16:08→22:07)
--- NOTE | 2024-12-24 16:52 | PD.RESCONSUL ---
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 Of note, she was recently discharged from [facility] on 12/07/2024 after GLF causing right hip and humoral head and neck fracture and is s/p FNS on 12/01/2024. At that time she was discharged with home health PT and was to follow-up with Dr. Olivares outpatient as echo revealed moderate-seveve aortic stenosis as well as moderate-severe mitral regurgitation. Patient states that she has been feeling short of breath for the last few months but has started to progress and prompted visit to ED. Endorses associated orthopnea, paroxysmal nocturnal dyspnea, and bilateral lower extremity edema but denies any chest pain. Of note, patient was also discharged with eliquis 2.5 mg PO BID as part of post-surgical DVT prophylaxis for two weeks but was found to have streaks of blood in emesis and has since been stopped. She denies having dark stools or hematochezia. In the ED, initial vitals showed BP 164/86, HR 124, RR 24, saturating 97% on 2 L NC. CBC showed hemoglobin 6.6 (baseline 8.5-9.0), hematocrit 20, platelet 486. BNP 1690, troponin 0.144 -> 0.139, sodium 135, K 3.1, BUN 62, creatinine 6.6, GFR 6. EKG showed irregular, sinus rhythm with multiple PACs, incomplete RBBB, QTc 523. CTA chest: Prominent vascular congestion/pulmonary edema, negative for PE, 8 mm pulmonary nodule in RUL, 12 mm in pulmonary nodule in lingula. CXR showed vascular congestion. Given methylprednisolone 125 mg x 1, famotidine, diphenhydramine, diltiazem, DuoNebs, and 1 unit pRBC. Cardiology consulted due to history of aortic stenosis, new onset afib, and CHF exacerbation. 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 Patel) PSHx: FNS of femur on 11/23/2024, CRIF humoral neck fracture 11/23/2024 cc:: cc: Hansel Quijano DO Review of Systems Review of Systems Systems Reviewed: All systems reviewed, normal except as documented Exam Vital Signs Temp Pulse Resp BP Pulse Ox O2 Del Method O2 Flow Rate 98.6 F 89 16 168/98 H 97 Nasal Cannula 3 12/24/24 16:23 12/24/24 16:23 12/24/24 16:23 12/24/24 16:23 12/24/24 16:23 12/24/24 15:26 12/24/24 16:08 Narrative Exam General: AOx3, moderate respiratory distress, speaks in 2-3 word sentences HEENT: NC/AT, mucous membranes moist Cardiovascular: irregular rhythm, systolic murmur along left sternal border, S1/S2 present Pulmonary: on 2 L NC, moderate respiratory distress, clear to auscultation bilaterally (s/p breathing treatment) Abdominal: soft, non-tender, non-distended, no rebound/guarding, normal bowel sounds present Musculoskeletal: 2+ pitting bilateral lower extremity edema Skin: warm and dry, intact, no rashes Neuro: CN II-XII intact, no focal deficits Results Labs 12/24/24 17:45 12/24/24 13:15 Labs: Short CBC 12/24/24 Range/Units 10:58 WBC 10.5 (3.6-11.0) Thou/mm3 Hgb 6.6 L* (12.0-16.0) g/dL Hct 20.0 L* (36.0-46.0) % Plt Count 486 H D (140-440) Thou/mm3 BMP 12/24/24 12/24/24 10:58 13:15 Sodium 137 135 L Potassium 3.0 L 3.1 L Chloride 96 L 94 L Carbon Dioxide 30.4 30.2 BUN 61 H 62 H Creatinine 6.6 H* 6.6 H* Glucose 104 98 Calcium 8.5 8.2 L Cardiac Enzymes 12/24/24 12/24/24 Range/Units 10:58 13:15 Troponin I 0.144 H* 0.139 H* (0.0-0.045) ng/mL Liver Function 12/24/24 Range/Units 10:58 Total Bilirubin 0.6 (0.3-1.2) mg/dL AST 45 H (0-34) U/L ALT 28 (10-49) U/L Alkaline Phosphatase 88 (46-116) U/L Albumin 3.2 L (3.4-4.8) gm/dL Quality Measures Quality Measures none Advance care planning discussed with:: patient Medications Home Medications and Allergies Home Medications ?Medication ?Instructions ?Recorded ?Confirmed ?Type ergocalciferol (vitamin D2) 1,250 50,000 unit PO QWEEK #0 caps 11/17/13 12/07/24 History mcg (50,000 unit) capsule (Vitamin D2) omega-3 fatty acids 1,000 mg 1 cap PO DAILY ##0 11/17/13 12/07/24 History capsule (Fish Oil Concentrate) albuterol sulfate 90 mcg/actuation 2 puff inhalation QID PRN sob 08/01/19 12/07/24 History aerosol inhaler (Ventolin HFA) alendronate 70 mg tablet (Fosamax) 70 mg PO QWEEK 08/01/19 12/07/24 History calcium ER 600 mg (as carb,cit)-D3 1 tab PO BID 08/13/19 12/07/24 History 12.5 mcg (500 unit) tablet, ext.rel (Citracal-D3 Slow Release) atorvastatin 40 mg tablet 40 mg PO QDAY 08/15/19 12/07/24 History acetaminophen 500 mg capsule 1,000 mg PO Q6H PRN Pain 09/04/19 12/07/24 History calcitriol 0.25 mcg capsule 0.25 mcg PO QDAY 11/30/24 12/07/24 History metoprolol tartrate 25 mg tablet mg 11/30/24 12/07/24 History Allergies Allergy/AdvReac Type Severity Reaction Status Date / Time shrimp Allergy Severe Wheezing Verified 12/24/24 10:09 NSAIDS (Non-Steroidal Allergy Intermediate Swelling Verified 12/24/24 10:09 Anti-Inflamma Penicillins Allergy Intermediate Rash Verified 12/24/24 10:09 Visit Medications Acetaminophen (Acetaminophen 325 Mg Tablet) 650 mg PO Q6H PRN PRN Reason: Pain (1-3) & Fever >100.3 Stop: 01/23/25 14:40 Sodium Chloride (Ns) 1,000 mls @ 100 mls/hr IV .Q10H ONE Stop: 12/24/24 20:43 Last Admin: 12/24/24 16:19 Dose: Not Given Ondansetron HCl (Ondansetron Inj 2 Mg/Ml Inj 2 Ml) 4 mg IV Q6H PRN; Protocol PRN Reason: NAUSEA OR VOMITING Stop: 01/23/25 14:40 Pantoprazole Sodium (Pantoprazole Inj 40 Mg Vial) 40 mg IVP Q12HR SABRINA Stop: 01/23/25 20:59 Sennosides (Senna Tablet) 1 tab PO BID SABRINA; Protocol Stop: 01/23/25 20:59 Discontinued Medications Albuterol/Ipratropium (Albuterol/Ipratropium (Duoneb) Rt Annika 3 Ml Nebu) 3 ml INH Q2HR PRN PRN Reason: SHORTNESS OF BREATH OR WHEEZE Stop: 01/23/25 14:40 Albuterol/Ipratropium (Albuterol/Ipratropium (Duoneb) Rt Annika 3 Ml Nebu) 3 ml INH X1 ONE Stop: 12/24/24 15:53 Last Admin: 12/24/24 16:08 Dose: 3 ml Diltiazem HCl (Diltiazem Inj 5 Mg/Ml Vial 5 Ml) 15 mg IV X1 ONE Stop: 12/24/24 10:56 Last Admin: 12/24/24 13:26 Dose: 15 mg Diphenhydramine HCl (Diphenhydramine Inj 50 Mg/Ml Vial) 25 mg IVP X1 ONE Stop: 12/24/24 12:14 Last Admin: 12/24/24 12:29 Dose: 25 mg Famotidine (Famotidine Inj 10 Mg/Ml Vial 2 Ml) 20 mg IVP X1 ONE Stop: 12/24/24 12:14 Last Admin: 12/24/24 12:29 Dose: 20 mg Hydromorphone HCl (Hydromorphone Inj 2 Mg/Ml Vial) 0.25 mg IVP Q2H PRN PRN Reason: PAIN SCALE 7-10 (Severe Stop: 12/29/24 14:40 Iron Sucrose (Iron Sucrose Cplx Inj 20 Mg/Ml Vial 5 Ml) 100 mg IVP X1 ONE Stop: 12/24/24 15:17 Last Admin: 12/24/24 16:26 Dose: Not Given Methylprednisolone Sodium Succinate (Methylprednisolone Sod Succ 62.5 Mg/Ml 2ml Vial) 125 mg IVP X1 ONE Stop: 12/24/24 12:14 Last Admin: 12/24/24 12:29 Dose: 125 mg Oxycodone/Acetaminophen (Oxycodone/Apap 5/325 Tablet) 1 tab PO Q6H PRN PRN Reason: PAIN SCALE 4-6 (Moderate Stop: 12/29/24 14:40 Assessment & Plan Plan Tho Lee is an 84-year-old female with a past medical history of Antonia's granulomatosis diagnosed 25 years ago, 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 Cardiology consulted due to history of aortic stenosis, new onset afib, and CHF exacerbation. #Acute hypoxic respiratory failure Presents with shortness of breath, orthopnea, PND, and bilateral lower extremity edema. Suspect that AHRF is multifactorial, with acute CHF exacerbation being a component but patient also noted to have irregular EKG, anemia of 6.6, and history of moderate-severe aortic stenosis. CTA chest showed pulmonary edema and vascular congestion, consistent with acute CHF exacerbation and negative for PE. See rest of A&P below for further assessment and recommendations. #? MAT vs new onset atrial fibrillation with RVR vs frequent PACs Patient presents with shortness of breath and found to have abnormal EKG that showed irregular, sinus rhythm with multiple PACs, incomplete RBBB, and QTc 523. EKG also showing multiple different P wave morphologies. Of note, patient has moderately dilated LA as seen on echo on 11/30/2024 in setting of moderate-severe aortic stenosis. Thus, with multiple P wave morphologies, likely patient has MAT rather than new onset atrial fibrillation with RVR. Additionally, K noted to be low at 3.1 and hemoglobin also low at 6.6 that may be contributing/aggravating factors. [id number] score of 7 and HAS-BLED score of 5. Given recent history of blood-tinged emesis as well as hemoglobin of 6.6, recommend to hold off on AC if A-fib. Of note, patient noted to have home Rx of clopidogrel 75 mg, recommend to hold as well. ? Recommend metoprolol succinate 25 mg daily ? Treat underlying cause, aortic stenosis vs hypokalemia vs anemia #Acute CHF exacerbation #History of HFpEF (EF 55-60% 11/2024) #NSTEMI type II/demand ischemia In addition to shortness of breath patient also endorses orthopnea, PND, and bilateral lower extremity edema. BNP 1691 and troponin peaked at 0.144. Suspect demand ischemia secondary to acute CHF exacerbation in addition to history of moderate-severe aortic stenosis and low intravascular volume (acute on chronic anemia with initial hemoglobin of 6.6), leading to decreased tissue oxygenation/perfusion. ? Given that patient is anuric, will not be able to diurese and Sette will have to remove fluid via peritoneal dialysis ? Nephrology following, appreciate recommendations ? Strict I's and O's ? Fluid restrictions ? Daily weights #Acute on chronic normocytic anemia Has baseline anemia with hemoglobin of 8.5-9.0, but presents with hemoglobin 6.6. Was noted to be on eliquis 2.5 mg PO BID for post-surgical DVT prophylaxis as well as home rx of clopidogrel. Apparently, patient also had blood-tinged emesis but denies melena and hematochezia. Recommend full anemia work-up and transfusion of total of 2 units pRBC. #Moderate-severe aortic stenosis #Moderate-severe mitral regurgitation Echo on 11/30/2024: Normal LV size and function. EF 55-60%. Diastolic dysfunction present but cannot be graded. Normal RV size and function. Estimated RVSP moderately elevated RVSP 55 mmHg. Moderate-severe . AV Vmax 3.8 m/s, mean PG 38 mmHg. LATRICE 0.5 cm^2. Severe posterior MAC and moderate anterior MAC with mild mitral stenosis. Mean PG 5 mmHg. Moderate-severe MR. Moderate TR and mild to moderate AI. Moderately dilated LA and mildly dilated RA. ? Follow-up outpatient for further TAVR evaluation #Hyperlipidemia Lipid panel from previous admission: cholesterol 138, LDL 83, HDL 43, triglycerides 58 ? Continue home dose atorvastatin 40 mg daily #Hypertension Patient on metoprolol tartrate at home for blood pressure management ? Recommend metoprolol succinate 25 mg daily as above #Right hip fracture, s/p FNS on 12/01 #Right shoulder fracture, s/p CRIF on 12/01 #ESRD on PD #Antonia's granulomatosis #GERD #Gastritis #History of CVA #Asthma #Osteoarthritis ? Management of above conditions per primary team and other consultants ----- Plan discussed with attending physician Dr. Elise Brewer MD PGY-1 Internal Medicine Attending Provider Attestation/Addendum Mrs. 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 Patient was recently discharged from the hospital after recent fall status post right femur fracture and repair in November 2024. During this admission patient was diagnosed with moderate to severe moderate to severe MR and mild MS on diastolic dysfunction by the echo. Patient was discharged home with home PT and also on Eliquis 2.5 mg twice daily for anticoagulation for DVT prophylaxis. Patient apparently developed some streaks of blood in the cough and the Eliquis was stopped. Patient continued to have worsening shortness of breath since the time of discharge and only progressed to the level that now she has orthopnea PND as well as significant shortness of breath at rest. Patient not able to speak in full sentences. On examination patient also does have at least 2+ edema more on the dependent areas. Denies any Fever or chills or cough or sputum production. Denies any chest pain chest pressure or palpitations or dizziness or syncope or fall. Has not been ambulating much since her discharge. Initial EKG showed atrial fibrillation with RVR at around 131 bpm. Review of the telemetry now shows normal sinus rhythm with frequent PACs. Chest CTA was performed which showed significant vascular congestion along with septal pulmonary edema and no evidence of any PE and 8 mm, 12 known pulmonary nodules. Chest x-ray showed recent subacute fracture of the right humerus. Labs showed severe anemia with hemoglobin of 6.6 and platelets of 486 and WBC of 10.5 INR was 1.1. Sodium 137, potassium was 3.0 and chloride of 96 and BUN of 61 creatinine of 6.6 initial troponin was 0.144 and repeat was 0.139. BNP was 1691 and previous was only in the 300s LFTs were normal albumin was low at 3.2. Blood pressure was elevated on arrival at around 150-160 mmHg. Heart rate was 131 and now better controlled around 96 bpm. She is tachypneic around 25 to 30/min and saturations are 96% on 2 L oxygen via nasal cannula Assessment and plan: 1. Shortness of breath with orthopnea and PND - multifactorial mostly secondary to fluid overload from inadequate dialysis as well as moderate severe aortic stenosis, MR and severe anemia at 6.6 with component of pulmonary hypertension 2. End-stage renal disease on peritoneal dialysis secondary to Antonia's granulomatosis for the past 4 years 3. Moderate to severe carotid stenosis but valve area less than 1 cm? 4. Moderate to severe MR 5. Antonia's granulomatosis diagnosed 25 years ago 6. History of CVA or stroke 15 years ago with residual right hemiparesis 7. Diastolic congestive heart failure 8. Essential hypertension 9. Recent fall status post right femur fracture and repair, right humeral fracture with conservative treatment 10. Pulmonary hypertension-mild to moderate 11. hyperlipidemia 12. Chronic asthma on inhalers, chronic anemia osteoarthritis, osteoporosis, GERD Patient presented with acute hypoxic respiratory failure mostly secondary to fluid overload which is multifactorial secondary to inadequate dialysis from the peritoneal dialysis, moderate to severe aortic stenosis, moderate to severe MR, severe anemia with hemoglobin of 6.6 as well as a component of mild to moderate PAH. Recommend to transfuse 2 units of PRBC first unit now and second unit after the dialysis session. Urgent peritoneal dialysis as patient cannot be transitioned to hemodialysis catheter is no tunnel dialysis catheter could be placed today. Nephrology consulted by primary team. Recommend daily dialysis for the next couple of days as patient is fluid overloaded with a BNP elevated 6091 and previously was in the 300s. CTA was negative for PE and also any kind of pneumonia. Also recommended she had complete anemia workup from the labs sent earlier this morning and not the labs after the transfusion. Recommend to give iron transfusions if the patient has low or iron deficiency anemia. Patient presented with tachycardia and questionable atrial fibrillation. Patient does show significant P waves and patient possibly has multifocal atrial tachycardia versus atrial fibrillation but now already in the telemetry patient is in normal sinus rhythm with only PACs. Recommend only beta-pratik metoprolol XL 25 mg for now and hold off on anticoagulation given the severe anemia and also recent blood-tinged hemoptysis versus emesis. Will restart anticoagulation at a later date if atrial fibrillation is confirmed. Continue to monitor telemetry. Keep potassium between 4-5 and magnesium greater than 2.0 at all times. Her most recent echo as noted below and has moderate to severe aortic stenosis with a V-max of 3.8 m/s and mean PG of 38 mmHg and aortic valve area of 0.5 cm?, moderate to severe MR, mild mitral stenosis with mean PG of 5 mmHg, moderate TR as well as diastolic dysfunction. Patient needs to continue to workup further at SAVR versus TAVR as outpatient For which she was scheduled to see me in the office next week but will await for her to recover from the recent fall and the hip fracture s/p repair. Will expect the MR to improve after the aortic valve replacement for but overall given her age and dialysis and it is not ideal to do any repair for her mitral valve regurgitation or the mild MS. Management of rest of the medical conditions as per primary team and other consultants. Thank you for the consult and allowing me to participate in the care of the patient. Cardiology will continue to follow. Jori Olivares M.D. Interventional Cardiology
[2024-12-24 17:09] LABS: Path Review Blood Smear Sent to Pathologist
--- NOTE | 2024-12-24 18:00 | PC.NURSE ---
UNABLE TO COMPLETE ADMISSION ASSESSMENT. PT REFUSING TO ANSWER QUESTIONS DUE TO SOB AND NEED FOR NEBULIZER. RT NOTIFIED AND WILL COME ADMINSTER NEBULIZER.
[2024-12-24 18:16] LABS: Hemoglobin 8.8 g/dL (12.0-16.0)
[2024-12-24] MEDS: BUDESONIDE RT 0.5 MG/2 ML NEBU INH (18:24)
[2024-12-24 20:19] LABS: Iron 47 mcg/dL (50-170); LDH (Lactate Dehydrogenase) 453 U/L (120-246); Percent Iron Saturation 20 % (20-55); Total Iron Binding Capacity 225 mcg/dL (250-425); Unsaturated Iron Binding 178 (225-295)
[2024-12-24] MEDS: METOPROLOL SUCCINATE XL 25 MG TABCR PO (21:28)
[2024-12-24] MEDS: PANTOPRAZOLE INJ 40 MG VIAL IVP (21:29)
[2024-12-24] MEDS: SENNA TABLET 1 TAB PO (21:29)
[2024-12-24 22:19] LABS: Folate 10.05 ng/mL (>5.38); Vitamin B12 347 pg/mL (211-911)
[2024-12-24] MEDS: ALBUTEROL RT 2.5 MG/0.5 ML NEBU 10 MG INH (22:49)
[2024-12-24] MEDS: SODIUM CHLORIDE RT SOL 0.9% 3 ML NEBU INH (22:49)
[2024-12-25] VITALS (25 sets, daily range): BP systolic 129–188; BP diastolic 64–107; PULSE 24–134; RESP 12–100; TEMP 36.2–37.4; O2SAT 96–100; BMI 25.0
--- NOTE | 2024-12-25 00:39 | PD.EVENT ---
Documentation for date of: 12/25/24 Event Note Event Note: I was called to patient's bedside by ICU nurse. Patient noted to have respiratory rate in the high 30s, unable to speak in full sentences, and appears in distress. She states breathing treatments are not helping. Chest x-ray reviewed showing prominent vascular congestion including central vascular engorgement and early septal edema. We will give a trial of BiPAP and monitor patient's response closely. Continue peritoneal dialysis for fluid removal. Patient in agreement with the plan. Dr. Desmond MD
[2024-12-25] MEDS: hydrOXYzine HCL 25 MG TABLET 12.5 MG PO (01:32)
[2024-12-25] MEDS: ALBUTEROL/IPRATROPIUM (Duoneb) RT SOL 3 ML NEBU INH ×7 (02:52→22:10)
[2024-12-25] MEDS: MELATONIN 3 MG TABLET PO (04:52)
[2024-12-25] MEDS: BUDESONIDE RT 0.5 MG/2 ML NEBU INH (06:02)
[2024-12-25 06:26] LABS: Basophils % (Auto) 0 % (0-2.5); Eosinophils % (Auto) 0 % (0-10); Hematocrit 28.2 % (36.0-46.0); Hemoglobin 9.5 g/dL (12.0-16.0); Immature Granulocytes % (Auto) 2 % (0-0); Immature Granulocytes Auto 0.18 Thou/mm3 (0.00-0.00); Immature Reticulocyte Fraction 44.7 % (3.0-15.9); Lymphocytes # (Auto) 0.5 Thou/mm3 (1.0-4.8); Lymphocytes % (Auto) 5 % (10-50); Mean Corpuscular HGB Conc 33.7 g/dl (31.0-37.0); Mean Corpuscular Hemoglobin 29.3 pg (25.0-35.0); Mean Corpuscular Volume 87 fL (80-100); Monocytes # (Auto) 0.4 Thou/mm3 (0.0-0.8); Monocytes % (Auto) 4 % (0-12); Neutrophils # (Auto) 8.5 Thou/mm3 (1.8-7.7); Neutrophils % (Auto) 88 % (37-80); Nucleated Red Blood Cell # 0.03 Thou/mm3 (0.00-0.00); Nucleated Red Blood Cell % 0 /100 WBC (0); Platelet Count 417 Thou/mm3 (140-440); RDW Standard Deviation 56.9 fL (36.4-46.3); Red Blood Count 3.24 Miln/mm3 (4.00-5.20); Reticulocyte % (Auto) 4.1 % (0.5-1.5); Reticulocyte Absolute Auto 132.2 Biln/L (25.0-75.0); Reticulocyte Hgb Content 30.4 pg (28.0-35.0); White Blood Count 9.6 Thou/mm3 (3.6-11.0)
[2024-12-25 06:46] LABS: Alanine Aminotransferase 31 U/L (10-49); Albumin, Serum 3.9 gm/dL (3.4-4.8); Albumin/Globulin Ratio 1.1 (1.2-2.2); Alkaline Phosphatase 99 U/L (46-116); Anion Gap 18 (7-16); Aspartate Amino Transferase 45 U/L (0-34); BUN/Creatinine Ratio 10 Ratio (12-20); Bilirubin,Total 0.4 mg/dL (0.3-1.2); Blood Urea Nitrogen 59 mg/dL (9-23); Calcium 8.9 mg/dL (8.3-10.6); Carbon Dioxide 25.4 mMol/L (20.0-31.0); Chloride 91 mMol/L (98-107); Creatinine (Component) 6.2 mg/dL (0.6-1.3); Estimated Creatinine Clearance 4.9 mL/min (>60); Globulin 3.4 gm/dL (2.3-3.5); Glucose 183 mg/dL (74-106); Magnesium 1.8 mg/dL (1.6-2.6); Osmolality,Calculated 289 (275-295); Phosphorous 3.4 mg/dL (2.4-5.1); Potassium 2.8 mMol/L (3.4-5.1); Sodium 134 mMol/L (136-145); Total Protein 7.3 gm/dL (5.7-8.2); eGFR 6 See Note
[2024-12-25 07:00] LABS: INR 1.1 (0.9-1.3); Prothrombin Time 11.9 Seconds (9.0-12.2)
[2024-12-25] MEDS: METOPROLOL SUCCINATE XL 25 MG TABCR PO (08:42)
[2024-12-25] MEDS: PANTOPRAZOLE INJ 40 MG VIAL IVP ×2 (08:42→20:37)
[2024-12-25] MEDS: SENNA TABLET 1 TAB PO (08:42)
[2024-12-25] MEDS: POTASSIUM CHLORIDE 10% 20 MEQ/15 ML UDC 40 MEQ PO ×2 (08:45→11:31)
--- NOTE | 2024-12-25 09:59 | XR_ITS ---
Examination: Abdomen AP single view Technique: AP portable supine abdomen, single view Exam date and time: December 25, 2024 1054 hours INDICATIONS: Abdominal pain today FINDINGS: Peritoneal dialysis catheter coiled in the pelvis Nonobstructive bowel gas pattern No free air detected Severe osteopenia IMPRESSION: Nonobstructive bowel gas pattern
--- NOTE | 2024-12-25 13:01 | ESPR_ITS ---
<Statement entered by Kem Seay MD - 12/26/24 08:05> I discussed with and supervised the inclusion intern physician involved in the care of this patient. Patient assessment and plan was discussed with entire medicine team, including my attending. I agree with the assessment and plan as documented by inclusion intern doctor. Patient care was discussed with my attending physician Dr. Samm Seay, PGY-2 Documentation for date of: 12/25/24 Subjective Subjective Interval history: Patient seen and examined at bedside. Patient received peritoneal dialysis overnight, nephrology was consulted, about 1.4 L. Patient continues to have tachycardia, cardiology is following, potassium was low in a.m. was replaced. Will hold off on second unit of PRBC, hemoglobin stable this morning. Patient will receive another session of peritoneal dialysis later today. Ordered KUB, CTA chest showed concern of free air under diaphragm Will continue to monitor the patient. Exam Vital Signs Temp Pulse Resp BP Pulse Ox O2 Del Method O2 Flow Rate 99.4 F 103 H 22 H 156/88 H 100 Nasal Cannula 2 12/25/24 07:35 12/25/24 10:28 12/25/24 10:28 12/25/24 08:42 12/25/24 10:28 12/24/24 18:00 12/25/24 10:28 FiO2 30 12/25/24 02:53 Narrative Exam General: AOx3, moderate respiratory distress, speaks in 2-3 word sentences HEENT: NC/AT, mucous membranes moist Cardiovascular: irregular rhythm,,4/6 ESM in aortic area raditing to carotids, PSM mitral area. Pulmonary: on 2 L NC, mild respiratory distress, crackles auscultated bilaterally, speaks in short sentences, accessory muscle use noted Abdominal: soft, non-tender, non-distended, no rebound/guarding, normal bowel sounds present Musculoskeletal: 3+ pitting bilateral lower extremity edema Skin: warm and dry, intact, no rashes Neuro: CN II-XII intact, no focal deficits Objective Labs 12/25/24 05:15 12/25/24 05:15 Labs: Laboratory Results - last 24 hr 12/24/24 12/24/24 12/24/24 10:58 12:00 13:15 WBC RBC Hgb Hct MCV MCH MCHC RDW Std Deviation Plt Count Neut % (Auto) Lymph % (Auto) [place] % (Auto) Eos % (Auto) Baso % (Auto) Neut # (Auto) Lymph # (Auto) [place] # (Auto) Eos # (Auto) Baso # (Auto) Immature Gran # (Auto) Absolute Nucleated RBC Immature Gran % Nucleated RBC % Smear Path Review Sent to Pathologist Retic Count (auto) Absolute Retic Immature Retic Fraction Retic Hgb Content CHr PT INR APTT Sodium 135 L Potassium 3.1 L Chloride 94 L Carbon Dioxide 30.2 Anion Gap 11 BUN 62 H Creatinine 6.6 H* Estim Creat Clear Calc 4.9 L eGFR 6 L* BUN/Creatinine Ratio 9 L Glucose 98 Calculated Osmolality 287 Calcium 8.2 L Corrected Calcium Phosphorus Magnesium Iron TIBC Iron Saturation Unsat Iron Binding Total Bilirubin AST ALT Alkaline Phosphatase Lactate Dehydrogenase Troponin I 0.139 H* Total Protein Albumin Globulin Albumin/Globulin Ratio Vitamin B12 Folate Blood Type AB Positive Antibody Screen NEGATIVE Crossmatch See Detail Blood Bank Wristband ID Yes 12/24/24 12/25/24 17:45 05:15 WBC 9.6 RBC 3.24 L Hgb 8.8 L D 9.5 L Hct 26.0 L 28.2 L MCV 87 MCH 29.3 MCHC 33.7 RDW Std Deviation 56.9 H Plt Count 417 D Neut % (Auto) 88 H Lymph % (Auto) 5 L [place] % (Auto) 4 Eos % (Auto) 0 Baso % (Auto) 0 Neut # (Auto) 8.5 H Lymph # (Auto) 0.5 L [place] # (Auto) 0.4 Eos # (Auto) 0.0 Baso # (Auto) 0.0 Immature Gran # (Auto) 0.18 H Absolute Nucleated RBC 0.03 H Immature Gran % 2 H Nucleated RBC % 0 Smear Path Review Cancelled Retic Count (auto) 4.1 H Absolute Retic 132.2 H Immature Retic Fraction 44.7 H Retic Hgb Content CHr 30.4 PT 11.9 INR 1.1 APTT 20.0 L Sodium 134 L Potassium 2.8 L Chloride 91 L Carbon Dioxide 25.4 Anion Gap 18 H BUN 59 H Creatinine 6.2 H* Estim Creat Clear Calc 4.9 L eGFR 6 L* BUN/Creatinine Ratio 10 L Glucose 183 H D Calculated Osmolality 289 Calcium 8.9 Corrected Calcium 9.0 Phosphorus 3.4 Magnesium 1.8 Iron 47 L TIBC 225 L Iron Saturation 20 Unsat Iron Binding 178 L Total Bilirubin 0.4 AST 45 H ALT 31 Alkaline Phosphatase 99 Lactate Dehydrogenase 453 H Troponin I Total Protein 7.3 Albumin 3.9 D Globulin 3.4 Albumin/Globulin Ratio 1.1 L Vitamin B12 347 Folate 10.05 Blood Type Antibody Screen Crossmatch Blood Bank Wristband ID Quality Measures Quality Measures none Advance care planning discussed with:: patient and child Assessment & Plan Assessment Current Active Medications: Generic Name Dose Route Start Last Admin Trade Name Freq PRN Reason Stop Dose Admin Acetaminophen 650 mg 12/24/24 14:41 Acetaminophen 325 Mg Tablet PO 01/23/25 14:40 Q6H PRN Pain (1-3) & Fever >100.3 Albuterol/Ipratropium 3 ml 12/24/24 19:00 12/25/24 10:26 Albuterol/Ipratropium (Duoneb) Rt Annika 3 Ml Nebu INH 01/23/25 18:59 3 ml Q4HRRT SABRINA Administration Albuterol/Ipratropium 3 ml 12/24/24 22:36 12/25/24 05:11 Albuterol/Ipratropium (Duoneb) Rt Annika 3 Ml Nebu INH 01/23/25 22:35 3 ml Q2HR PRN Administration SHORTNESS OF BREATH OR WHEEZE Budesonide 0.5 mg 12/24/24 19:00 12/25/24 06:02 Budesonide Rt 0.5 Mg/2 Ml Nebu INH 01/23/25 18:59 0.5 mg BIDRT SABRINA Administration Metoprolol Succinate 25 mg 12/24/24 18:30 12/25/24 08:42 Metoprolol Succinate Xl 25 Mg Tabcr PO 01/23/25 18:29 25 mg QDAY SABRINA Administration Ondansetron HCl 4 mg 12/24/24 14:41 Ondansetron Inj 2 Mg/Ml Inj 2 Ml IV 01/23/25 14:40 Q6H PRN NAUSEA OR VOMITING Protocol Pantoprazole Sodium 40 mg 12/24/24 21:00 12/25/24 08:42 Pantoprazole Inj 40 Mg Vial IVP 01/23/25 20:59 40 mg Q12HR SABRINA Administration Sennosides 1 tab 12/24/24 21:00 12/25/24 08:42 Senna Tablet PO 01/23/25 20:59 1 tab BID SABRINA Administration Protocol Sodium Chloride 3 ml 12/24/24 22:40 12/24/24 22:49 Sodium Chloride Rt Annika 0.9% 3 Ml Nebu INH 01/23/25 22:39 3 ml PRN PRN Administration SOLN Plan Assessment and plan: Summary: Mr. 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 emergency department on with a chief complaint of shortness of breath. Patient admitted to the hospital for fluid overload, CHF exacerbation management. 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 On presentation was satting well on room air, eventually needed supplemental oxygen to maintain saturation more than 92, BNP on presentation 1691, CTA negative for PE chest x-ray showed mild CHF. Bilateral crackles heard on physical exam, 3+ bilateral lower extremity pitting edema. Echocardiogram on 11/30/2024: Normal LV size and function. EF 55-60%. Diastolic dysfunction present but cannot be graded. Normal RV size and function. Estimated RVSP moderately elevated RVSP 55 mmHg. Moderate-severe . AV Vmax 3.8 m/s, mean PG 38 mmHg. LATRICE 0.5 cm^2. Severe posterior MAC and moderate anterior MAC with mild mitral stenosis. Mean PG 5 mmHg. Moderate-severe MR. Moderate TR and mild to moderate AI. Moderately dilated LA and mildly dilated RA. Plan: - Nephrology consulted, patient will be scheduled for emergent peritoneal dialysis. - Strict intake and output - Fluid restriction - Monitor daily weights - Cardiology consulted, appreciate recommendations #Acute on chronic normocytic normochromic anemia Multifactorial reason, does have CKD, transfused 1 unit PRBC in ED Iron 47, TIBC 295, iron sat 20%, unsaturated iron binding 178, LDH 453, vitamin B12 347, folate 10.05 Reticulocyte count 4.1%, absolute reticulocyte 132.2, immature reticulocyte fraction 44.7 Plan: - Follow peripheral blood film - Follow fecal occult blood - Hold 1 unit PRBC, will transfuse if hemoglobin around 8 #? MAT vs new onset atrial fibrillation with RVR vs frequent PACs Patient presents with shortness of breath and found to have abnormal EKG that showed irregular, sinus rhythm with multiple PACs, incomplete RBBB, and QTc 523. EKG also showing multiple different P wave morphologies. Of note, patient has moderately dilated LA as seen on echo on 11/30/2024 in setting of moderate-severe aortic stenosis. Thus, with multiple P wave morphologies, likely patient has MAT rather than new onset atrial fibrillation with RVR. Additionally, K noted to be low at 3.1 and hemoglobin also low at 6.6 that may be contributing/aggravating factors. [id number] score of 7 and HAS-BLED score of 5. Given recent history of blood- tinged emesis as well as hemoglobin of 6.6, recommend to hold off on AC if A- fib. Of note, patient noted to have home Rx of clopidogrel 75 mg, recommend to hold as well. Plan: ? Started on metoprolol succinate 25 mg daily ? Telemetry monitoring #GERD #Gastritis #? GI bleed Patient did have an episode of hematemesis outpatient, 14 days postdischarge from hospital, was switched from Eliquis to Plavix. Hemoglobin on presentation was 6.6, was transfused 1 unit PRBC. Patient on Tums 4 times a day at home CTA chest showed suspicious finding of free air under diaphragm, will order KUB - Started on Protonix 40 IV twice daily - Follow fecal occult blood test - Follow KUB #Hyperlipidemia Lipid panel from previous admission: cholesterol 138, LDL 83, HDL 43, triglycerides 58 ? Continue home dose atorvastatin 40 mg daily #Hypertension Patient on metoprolol tartrate at home for blood pressure management ? Recommend metoprolol succinate 25 mg daily as above #Asthma Longstanding history of asthma, uses inhalers at home - DuoNeb as needed #History of CVA Hold Plavix, suspicion of GI bleed #Right hip fracture, s/p FNS on 12/01 #Right shoulder fracture, s/p CRIF on 12/01 #Osteoarthritis Consulted physical therapy #Antonia's granulomatosis Stable currently, was on rituximab in the past DVT prophylaxis: No DVT prophylaxis in setting of suspected GI bleed and anemia GI prophylaxis: IV Protonix twice daily Diet: Clear liquid diet Lines: Peripheral IV Code status: Full code Case discussed with Attending Dr. Quijano and my senior Dr Seay PGY2 Misha Mcgowan PGY1 Attending Provider Attestation/Addendum I have discussed and was present for the essential components of the history, physical examination, diagnosis, and treatment plan with the resident. I agree with the patient's care as documented by the resident and amended herein by me. Messi Quijano, DO. Patient seen and evaluated this AM. Vital signs stable, patient afebrile overnight, pulse 104, respiratory rate 31, patient on NC 1 L, SpO2 100%. Patient visibly improved today, smiling, in no respiratory distress. Blood glucose slightly elevated 183. Significant labs include a stable hemoglobin 9.5, potassium 2.8, chloride 91, creatinine 62 and BUN 59. Will continue peritoneal dialysis today, 1.4 L removed last night. FOBT has also been ordered for possible GI bleed although no visible blood present. KUB also ordered to determine any free air under the diaphragm however was negative. Will consider IV iron prior to discharge however will discuss with nephrology, cardiology also consulted, appreciate recommendations. Will continue metoprolol succinate 25 mg daily per their recommendations. Will continue to monitor closely while she is here, family was at bedside they were updated for the plan. Although this document has been carefully reviewed, there may still be some phonetic and other typographical errors. These errors are purely grammatical due to imperfections in the software program and should not be construed in any way to compromise the substance of the patient's medical care during this visit.
--- NOTE | 2024-12-25 14:30 | PD.RESPRO ---
Documentation for date of: 12/25/24 Subjective Subjective Interval history: No acute events overnight.?Patient seen and examined at bedside this AM in ICU as tele overflow.?Patient continues to feel significant shortness of breath. She reports that she is trying to eat more proteins to gain back her strength, despite having little appetite. Labs and vitals were reviewed.?BP ranged 137/64-164/87, HR 90-130s. She is saturating 98% on 1L NC but tachypneic in the 20-30s. Labs showed electrolyte imbalance with Na 134, K 2.8, Cl 91. Otherwise denies chest pain, palpitations, or dizziness. No further complaints at this time. Patient will continue to receive fluid removal through peritoneal dialysis. Review of systems otherwise negative except what is mentioned above. Exam Vital Signs Temp Pulse Resp BP Pulse Ox O2 Del Method O2 Flow Rate 97.6 F 96 23 H 148/77 H 100 Nasal Cannula 2 12/25/24 12:00 12/25/24 12:00 12/25/24 12:00 12/25/24 12:00 12/25/24 12:00 12/24/24 18:00 12/25/24 10:28 FiO2 30 12/25/24 02:53 Narrative Exam General: AOx3, mild respiratory distress, able to speak full sentences but breathless HEENT: NC/AT, mucous membranes moist Cardiovascular: irregular rhythm, systolic murmur along left sternal border, S1/S2 present Pulmonary: on 1L NC, moderate respiratory distress, clear to auscultation bilaterally (s/p breathing treatment) Abdominal: soft, non-tender, non-distended, no rebound/guarding, normal bowel sounds present Musculoskeletal: 1+ pitting bilateral lower extremity edema Skin: warm and dry, intact, no rashes Neuro: CN II-XII intact, no focal deficits Objective Labs 12/26/24 18:19 12/26/24 18:19 Labs: Laboratory Results - last 24 hr 12/24/24 12/24/24 12/24/24 10:58 12:00 17:45 WBC RBC Hgb 8.8 L D Hct 26.0 L MCV MCH MCHC RDW Std Deviation Plt Count Neut % (Auto) Lymph % (Auto) [place] % (Auto) Eos % (Auto) Baso % (Auto) Neut # (Auto) Lymph # (Auto) [place] # (Auto) Eos # (Auto) Baso # (Auto) Immature Gran # (Auto) Absolute Nucleated RBC Immature Gran % Nucleated RBC % Smear Path Review Sent to Pathologist Retic Count (auto) Absolute Retic Immature Retic Fraction Retic Hgb Content CHr PT INR APTT Sodium Potassium Chloride Carbon Dioxide Anion Gap BUN Creatinine Estim Creat Clear Calc eGFR BUN/Creatinine Ratio Glucose Calculated Osmolality Calcium Corrected Calcium Phosphorus Magnesium Iron 47 L TIBC 225 L Iron Saturation 20 Unsat Iron Binding 178 L Total Bilirubin AST ALT Alkaline Phosphatase Lactate Dehydrogenase 453 H Total Protein Albumin Globulin Albumin/Globulin Ratio Vitamin B12 347 Folate 10.05 Blood Type AB Positive Antibody Screen NEGATIVE Crossmatch See Detail Blood Bank Wristband ID Yes 12/25/24 05:15 WBC 9.6 RBC 3.24 L Hgb 9.5 L Hct 28.2 L MCV 87 MCH 29.3 MCHC 33.7 RDW Std Deviation 56.9 H Plt Count 417 D Neut % (Auto) 88 H Lymph % (Auto) 5 L [place] % (Auto) 4 Eos % (Auto) 0 Baso % (Auto) 0 Neut # (Auto) 8.5 H Lymph # (Auto) 0.5 L [place] # (Auto) 0.4 Eos # (Auto) 0.0 Baso # (Auto) 0.0 Immature Gran # (Auto) 0.18 H Absolute Nucleated RBC 0.03 H Immature Gran % 2 H Nucleated RBC % 0 Smear Path Review Cancelled Retic Count (auto) 4.1 H Absolute Retic 132.2 H Immature Retic Fraction 44.7 H Retic Hgb Content CHr 30.4 PT 11.9 INR 1.1 APTT 20.0 L Sodium 134 L Potassium 2.8 L Chloride 91 L Carbon Dioxide 25.4 Anion Gap 18 H BUN 59 H Creatinine 6.2 H* Estim Creat Clear Calc 4.9 L eGFR 6 L* BUN/Creatinine Ratio 10 L Glucose 183 H D Calculated Osmolality 289 Calcium 8.9 Corrected Calcium 9.0 Phosphorus 3.4 Magnesium 1.8 Iron TIBC Iron Saturation Unsat Iron Binding Total Bilirubin 0.4 AST 45 H ALT 31 Alkaline Phosphatase 99 Lactate Dehydrogenase Total Protein 7.3 Albumin 3.9 D Globulin 3.4 Albumin/Globulin Ratio 1.1 L Vitamin B12 Folate Blood Type Antibody Screen Crossmatch Blood Bank Wristband ID Quality Measures Quality Measures none Advance care planning discussed with:: patient Assessment & Plan Assessment Current Active Medications: Generic Name Dose Route Start Last Admin Trade Name Freq PRN Reason Stop Dose Admin Acetaminophen 650 mg 12/24/24 14:41 Acetaminophen 325 Mg Tablet PO 01/23/25 14:40 Q6H PRN Pain (1-3) & Fever >100.3 Albuterol/Ipratropium 3 ml 12/24/24 19:00 12/25/24 10:26 Albuterol/Ipratropium (Duoneb) Rt Annika 3 Ml Nebu INH 01/23/25 18:59 3 ml Q4HRRT SABRINA Administration Albuterol/Ipratropium 3 ml 12/24/24 22:36 12/25/24 05:11 Albuterol/Ipratropium (Duoneb) Rt Annika 3 Ml Nebu INH 01/23/25 22:35 3 ml Q2HR PRN Administration SHORTNESS OF BREATH OR WHEEZE Budesonide 0.5 mg 12/24/24 19:00 12/25/24 06:02 Budesonide Rt 0.5 Mg/2 Ml Nebu INH 01/23/25 18:59 0.5 mg BIDRT SABRINA Administration Metoprolol Succinate 25 mg 12/24/24 18:30 12/25/24 08:42 Metoprolol Succinate Xl 25 Mg Tabcr PO 01/23/25 18:29 25 mg QDAY SABRINA Administration Ondansetron HCl 4 mg 12/24/24 14:41 Ondansetron Inj 2 Mg/Ml Inj 2 Ml IV 01/23/25 14:40 Q6H PRN NAUSEA OR VOMITING Protocol Pantoprazole Sodium 40 mg 12/24/24 21:00 12/25/24 08:42 Pantoprazole Inj 40 Mg Vial IVP 01/23/25 20:59 40 mg Q12HR SABRINA Administration Sennosides 1 tab 12/24/24 21:00 12/25/24 08:42 Senna Tablet PO 01/23/25 20:59 1 tab BID SABRINA Administration Protocol Sodium Chloride 3 ml 12/24/24 22:40 12/24/24 22:49 Sodium Chloride Rt Annika 0.9% 3 Ml Nebu INH 01/23/25 22:39 3 ml PRN PRN Administration SOLN Plan Tho Lee is an 84-year-old female with a past medical history of Antonia's granulomatosis diagnosed 25 years ago, 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 Cardiology consulted due to history of aortic stenosis, new onset afib, and CHF exacerbation. #Acute hypoxic respiratory failure Presents with shortness of breath, orthopnea, PND, and bilateral lower extremity edema. Suspect that AHRF is multifactorial, with acute CHF exacerbation being a component but patient also noted to have irregular EKG, anemia of 6.6, and history of moderate-severe aortic stenosis. CTA chest showed pulmonary edema and vascular congestion, consistent with acute CHF exacerbation and negative for PE. See rest of A&P below for further assessment and recommendations. #? MAT vs new onset atrial fibrillation with RVR vs frequent PACs Patient presents with shortness of breath and found to have abnormal EKG that showed irregular, sinus rhythm with multiple PACs, incomplete RBBB, and QTc 523. EKG also showing multiple different P wave morphologies. Of note, patient has moderately dilated LA as seen on echo on 11/30/2024 in setting of moderate-severe aortic stenosis. Thus, with multiple P wave morphologies, likely patient has MAT rather than new onset atrial fibrillation with RVR. Additionally, K noted to be low at 3.1 and hemoglobin also low at 6.6 that may be contributing/aggravating factors. [id number] score of 7 and HAS-BLED score of 5. Given recent history of blood-tinged emesis as well as hemoglobin of 6.6, recommend to hold off on AC if A-fib. Of note, patient noted to have home Rx of clopidogrel 75 mg, recommend to hold as well. ? Recommend metoprolol succinate 25 mg daily ? Treat underlying cause, aortic stenosis vs hypokalemia vs anemia #Acute diastolic CHF exacerbation #History of HFpEF (EF 55-60% 11/2024) #NSTEMI type II/demand ischemia #Pulmonary hypertension, mild to moderate In addition to shortness of breath patient also endorses orthopnea, PND, and bilateral lower extremity edema. BNP 1691 and troponin peaked at 0.144. Suspect demand ischemia secondary to acute CHF exacerbation in addition to history of moderate-severe aortic stenosis and low intravascular volume (acute on chronic anemia with initial hemoglobin of 6.6), leading to decreased tissue oxygenation/perfusion. ? Given that patient is anuric, will not be able to diurese and Sette will have to remove fluid via peritoneal dialysis ? Nephrology following, appreciate recommendations ? Strict I's and O's ? Fluid restrictions ? Daily weights #Acute on chronic normocytic anemia Has baseline anemia with hemoglobin of 8.5-9.0, but presents with hemoglobin 6.6. Was noted to be on eliquis 2.5 mg PO BID for post-surgical DVT prophylaxis as well as home rx of clopidogrel. Apparently, patient also had blood-tinged emesis but denies melena and hematochezia. Recommend full anemia work-up and transfusion of total of 2 units pRBC. #Moderate-severe aortic stenosis #Moderate-severe mitral regurgitation Echo on 11/30/2024: Normal LV size and function. EF 55-60%. Diastolic dysfunction present but cannot be graded. Normal RV size and function. Estimated RVSP moderately elevated RVSP 55 mmHg. Moderate-severe . AV Vmax 3.8 m/s, mean PG 38 mmHg. LATRICE 0.5 cm^2. Severe posterior MAC and moderate anterior MAC with mild mitral stenosis. Mean PG 5 mmHg. Moderate-severe MR. Moderate TR and mild to moderate AI. Moderately dilated LA and mildly dilated RA. ? Follow-up outpatient for further TAVR evaluation #Hyperlipidemia Lipid panel from previous admission: cholesterol 138, LDL 83, HDL 43, triglycerides 58 ? Continue home dose atorvastatin 40 mg daily #Hypertension Patient on metoprolol tartrate at home for blood pressure management ? Recommend metoprolol succinate 25 mg daily as above #Right hip fracture, s/p FNS on 12/01 #Right shoulder fracture, s/p CRIF on 12/01 #ESRD on PD #Antonia's granulomatosis #GERD #Gastritis #History of CVA #Asthma #Osteoarthritis ? Management of above conditions per primary team and other consultants ----- Plan discussed with attending physician Dr. Elise Holguin PGY-2 Attending Provider Attestation/Addendum I have personally seen and examined the patient separately on the above date of service and discussed the plan of care with the resident. I reviewed the resident Dr. Jeannie Holguin consultation progress note and agree with the resident findings and plan in the note above and have also edited the documentation to reflect my findings and plan. Mrs. 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 Patient was recently discharged from the hospital after recent fall status post right femur fracture and repair in November 2024. During this admission patient was diagnosed with moderate to severe moderate to severe MR and mild MS on diastolic dysfunction by the echo. Patient was discharged home with home PT and also on Eliquis 2.5 mg twice daily for anticoagulation for DVT prophylaxis. Patient apparently developed some streaks of blood in the cough and the Eliquis was stopped. Patient continued to have worsening shortness of breath since the time of discharge and only progressed to the level that now she has orthopnea PND as well as significant shortness of breath at rest. Patient not able to speak in full sentences. On examination patient also does have at least 2+ edema more on the dependent areas. Denies any Fever or chills or cough or sputum production. Denies any chest pain chest pressure or palpitations or dizziness or syncope or fall. Has not been ambulating much since her discharge. Initial EKG showed atrial fibrillation with RVR at around 131 bpm. Review of the telemetry now shows normal sinus rhythm with frequent PACs. Chest CTA was performed which showed significant vascular congestion along with septal pulmonary edema and no evidence of any PE and 8 mm, 12 known pulmonary nodules. Chest x-ray showed recent subacute fracture of the right humerus. Labs showed severe anemia with hemoglobin of 6.6 and platelets of 486 and WBC of 10.5 INR was 1.1. Sodium 137, potassium was 3.0 and chloride of 96 and BUN of 61 creatinine of 6.6 initial troponin was 0.144 and repeat was 0.139. BNP was 1691 and previous was only in the 300s LFTs were normal albumin was low at 3.2. Blood pressure was elevated on arrival at around 150-160 mmHg. Heart rate was 131 and now better controlled around 96 bpm. She is tachypneic around 25 to 30/min and saturations are 96% on 2 L oxygen via nasal cannula Assessment and plan: 1. Shortness of breath with orthopnea and PND - multifactorial mostly secondary to fluid overload from inadequate dialysis as well as moderate severe aortic stenosis, MR and severe anemia at 6.6 with component of pulmonary hypertension 2. End-stage renal disease on peritoneal dialysis secondary to Antonia's granulomatosis for the past 4 years 3. Moderate to severe carotid stenosis but valve area less than 1 cm? 4. Moderate to severe MR 5. Antonia's granulomatosis diagnosed 25 years ago 6. History of CVA or stroke 15 years ago with residual right hemiparesis 7. Diastolic congestive heart failure 8. Essential hypertension 9. Recent fall status post right femur fracture and repair, right humeral fracture with conservative treatment 10. Pulmonary hypertension-mild to moderate 11. hyperlipidemia 12. Chronic asthma on inhalers, chronic anemia osteoarthritis, osteoporosis, GERD Patient presented with acute hypoxic respiratory failure mostly secondary to fluid overload which is multifactorial secondary to inadequate dialysis from the peritoneal dialysis, moderate to severe aortic stenosis, moderate to severe MR, severe anemia with hemoglobin of 6.6 as well as a component of mild to moderate PAH. Recommend to transfuse 2 units of PRBC first unit now and second unit after the dialysis session. Urgent peritoneal dialysis as patient cannot be transitioned to hemodialysis catheter is no tunnel dialysis catheter could be placed today. Nephrology consulted by primary team. Recommend daily dialysis for the next couple of days as patient is fluid overloaded with a BNP elevated 6091 and previously was in the 300s. CTA was negative for PE and also any kind of pneumonia. Also recommended she had complete anemia workup from the labs sent earlier this morning and not the labs after the transfusion. Recommend to give iron transfusions if the patient has low or iron deficiency anemia. Patient presented with tachycardia and questionable atrial fibrillation. Patient does show significant P waves and patient possibly has multifocal atrial tachycardia versus atrial fibrillation but now already in the telemetry patient is in normal sinus rhythm with only PACs. Recommend only beta-pratik metoprolol XL 25 mg for now and hold off on anticoagulation given the severe anemia and also recent blood-tinged hemoptysis versus emesis. Will restart anticoagulation at a later date if atrial fibrillation is confirmed. Continue to monitor telemetry. Keep potassium between 4-5 and magnesium greater than 2.0 at all times. Her most recent echo as noted below and has moderate to severe aortic stenosis with a V-max of 3.8 m/s and mean PG of 38 mmHg and aortic valve area of 0.5 cm?, moderate to severe MR, mild mitral stenosis with mean PG of 5 mmHg, moderate TR as well as diastolic dysfunction. Patient needs to continue to workup further at SAVR versus TAVR as outpatient For which she was scheduled to see me in the office next week but will await for her to recover from the recent fall and the hip fracture s/p repair. Will expect the MR to improve after the aortic valve replacement for but overall given her age and dialysis and it is not ideal to do any repair for her mitral valve regurgitation or the mild MS. 12/26/2024: Patient was seen and examined at the bedside. Patient shortness of breath is improved slightly and she is able to speak in full sentences but has some shortness of breath. Patient has been on peritoneal dialysis for more than 12 hours now and nephrology was consulted who recommended long sessions of peritoneal dialysis to remove additional fluid for the patient. Patient's oxygen requirements have been decreasing and has saturations at 98% on 1 to 2 L oxygen via nasal cannula. Overall rest of the labs and vitals appear to be stable at baseline. Beta-pratik can be started for MAT and frequent PACs if blood pressure is permissible. Discussed with the family at bedside in detail and they not want any hemodialysis at the present point of time and want to continue longer sessions of the PD dialysis for removal of the extra fluid. She will need to follow-up patient to continue the TAVR workup. Management of rest of the medical conditions as per primary team and other consultants. Thank you for the consult and allowing me to participate in the care of the patient. Cardiology will continue to follow. Jori Olivares M.D. Interventional Cardiology Jori Olivares M.D. Interventional Cardiology
--- NOTE | 2024-12-25 17:30 | PC.SS ---
SS update: pending cardiology consult.
[2024-12-25] MEDS: EPOETIN ALFA INJ 1,000 UNIT/0.05 ML UNIT 10000 UNIT SC (20:41)
--- NOTE | 2024-12-25 20:54 | ESCONSULT_ITS ---
RE: WHIT TITUS : 1940 DATE OF CONSULTATION: 12/25/2024 REASON FOR REFERRAL: ESRD management. REFERRING PHYSICIAN: Dr. Mcgowan. HISTORY OF PRESENT ILLNESS: This patient is an 84-year-old -[place] woman with past medical history significant for Antonia's granulomatosis 25 years ago, status post CVA, heart failure with preserved EF of 55%-60%, severe aortic stenosis, atrial fibrillation, ESRD, on peritoneal dialysis in the past 3-4 years in [place], who presented to emergency room on 12/24/2024 with increasing shortness of breath. The patient was also found volume overloaded with leg edema and chest x-ray showing vascular congestion. The patient was eventually admitted to ICU where we started doing CCPD with rapid exchanges using two 4.25% bags with 7 exchanges, 1.5 L per exchange for a total of 9 hours. This morning, patient has UF of around 1400 mL. However, patient continues to be short of breath, hypoxic, and still has some edema in both upper and lower extremities. According to her son, who is her caregiver, they only use red bags with rapid exchanges while in [place]. [employer] was able to deliver a sufficient amount of bags for their use while vacationing here in [place]. The patient not too long ago had a ground level fall and sustained a right hip fracture. She underwent a femoral neck system implant and CRIF on 11/23/2024. Her son told me that she can only use 4.25% to successfully remove fluids off her. It seems like the patient has ultrafiltration failure even before she arrived in [place]. Hemodialysis treatment was offered to the family; however, they would like me to try to do PD while she is in the hospital. The patient this morning has been feeling much better compared to how she was last night. Cardiology also saw her last night and it was deemed secondary to inability to remove fluids due to CCPD as a cause of her vascular congestion. The patient will be allowed to eat for the time being. Then, we will start CCPD again to remove as much fluid as possible. She denies chest pain and has less shortness of breath compared to yesterday. She continues to have some swelling, but less according to her. PAST MEDICAL HISTORY: As previously mentioned, Antonia's granulomatosis 25 years ago, CVA 15 years ago, asthma, osteoarthritis, GERD, heart failure with preserved ejection fraction, hyperlipidemia, and hypertension. SURGICAL HISTORY: Femoral neck system implant and CRIF of femoral neck fracture on 11/23/2024. CURRENT MEDICATIONS: 1. Acetaminophen 650 mg p.o. q.6. 2. Albuterol inhaler. 3. Budesonide. 4. Diltiazem 15 mg IV x1. 5. Diphenhydramine. 6. Famotidine 20 mg IV x1. 7. Hydroxyzine. 8. Iron. 9. Melatonin. 10. Methylprednisolone 1.5 mg p.o. x1. 11. Zofran. 12. Protonix 40 mg IV q.12. 13. Senokot. PHYSICAL EXAMINATION: GENERAL: She is awake, alert, and oriented. VITAL SIGNS: Heart rate of 97, temperature 98.1, blood pressure of 137/64, respiratory rate of 30, and O2 saturation of 99% on 2 L. HEENT: Anicteric sclerae. Normocephalic. NECK: Supple. No JVD. CHEST AND LUNGS: Symmetric expansion. Decreased breath sounds bilaterally. CARDIAC: Without murmur. ABDOMEN: Soft and nontender. EXTREMITIES: 2+ pedal pitting edema. LABORATORY DATA: Hemoglobin 9.5, WBC 9600, and platelet count 417,000. Sodium 134, potassium 2.8, chloride 91, BUN 59, creatinine 6.2, calcium 8.9, phosphorus 3.4, and magnesium 1.8. ASSESSMENT: 1. End-stage renal disease, secondary to Antonia's granulomatosis, currently on continuous cycling peritoneal dialysis. 2. Volume overload, secondary to ultrafiltration failure. 3. Anemia of chronic kidney disease. 4. History of hypertension. 5. History of right hip fracture, status post femoral neck system and closed reduction internal fixation. 6. Hypoxia, secondary to fluid overload. 7. Hypokalemia, secondary to intense peritoneal dialysis and poor intake. PLAN: At this point with the family consent, we will do 18 hours of peritoneal dialysis to remove fluids. I believe that the patient already has ultrafiltration failure given that even after using 2 bags of 4.25% solution, the patient only ultrafiltered 1400 mL. Hopefully, we will be able to augment peritoneal dialysis with icodextrin once in the outpatient setting. Family is not keen on doing hemodialysis at this point and would like to go back to [place] to talk it over with their laundry clerk. I will also start the patient on Retacrit 10,000 units 3 times a week. I will also check the potassium level as she has poor intake and is getting rapid exchanges of peritoneal dialysis, which may also cause hypokalemia. DT: 19:21:52 TT: 20:52:00 Ref: [id number] - TID: [id number] MTDD
[2024-12-25 21:12] LABS: Potassium 3.9 mMol/L (3.4-5.1)
[2024-12-25] MEDS: LORazepam 2 MG/ML VIAL 0.5 MG IVP (21:42)
[2024-12-26] VITALS (18 sets, daily range): BP systolic 115–161; BP diastolic 57–91; PULSE 32–121; RESP 12–37; TEMP 36.2–37.1; O2SAT 96–100; BMI 26.5
[2024-12-26] MEDS: ALBUTEROL/IPRATROPIUM (Duoneb) RT SOL 3 ML NEBU INH (02:14)
--- NOTE | 2024-12-26 02:40 | PC.NURSE ---
Called hospitalist, spoke to resident Dr. Clarke, made aware pt currently on Bipap due to increase work of breathing; however pt is anxious and does not want to keep Bipap on. No new orders received at this time. Per MD, will come see pt.
--- NOTE | 2024-12-26 02:40 | PC.NURSE ---
Called hospitalist, spoke to resident Dr. Clarke, made aware pt is anxious with increase rate of breathing 30-40s. No new orders received at this time. Per MD, will come see pt.
--- NOTE | 2024-12-26 02:55 | PC.NURSE ---
Dr. Copeland and Caroline RT at bedside, discuss the importance of the Bipap, pt agreed to leave Bipap on for now.
[2024-12-26] MEDS: ACETAMINOPHEN 325 MG TABLET 650 MG PO (03:15)
--- NOTE | 2024-12-26 03:45 | PC.NURSE ---
Pt removed Bipap, pt placed on 3L NC. Pt currently sitting on side of bed. RT Mamadou and Dr. Clarke aware.
--- NOTE | 2024-12-26 03:55 | PC.NURSE ---
Dr. Clarke and Mamadou RT at bedside. Pt now c/o nausea. Per Mamadou RT, hold off on Bipap due to nausea, pt at risk for aspiration if pt vomits. Per Mamadou RT, HiFlow may help pt, agreed.
[2024-12-26] MEDS: ONDANSETRON INJ 2 MG/ML INJ 2 ML 4 MG IV (03:58)
--- NOTE | 2024-12-26 04:18 | PC.NURSE ---
0415 Received call from daughter at this time. Per daughter, she spoke to day shift hospitalist regarding breathing treatments; requested to have albuterol to be changed to Xopenex. Per daughter, Albuterol makes pt anxious and makes HR increase. Noted albuterol is still active on NOV, no order for Xopenex. [id number] Called hospitalist, spoke to resident Dr. Marshall, made aware of pts daughter request. Per MD, will change breathing tx order to Xopenex.
[2024-12-26 06:13] LABS: Basophils % (Auto) 0 % (0-2.5); Eosinophils % (Auto) 0 % (0-10); Hematocrit 27.5 % (36.0-46.0); Hemoglobin 9.2 g/dL (12.0-16.0); Immature Granulocytes % (Auto) 1 % (0-0); Immature Granulocytes Auto 0.18 Thou/mm3 (0.00-0.00); Lymphocytes # (Auto) 0.9 Thou/mm3 (1.0-4.8); Lymphocytes % (Auto) 5 % (10-50); Mean Corpuscular HGB Conc 33.5 g/dl (31.0-37.0); Mean Corpuscular Hemoglobin 29.2 pg (25.0-35.0); Mean Corpuscular Volume 87 fL (80-100); Monocytes # (Auto) 1.6 Thou/mm3 (0.0-0.8); Monocytes % (Auto) 9 % (0-12); Neutrophils # (Auto) 14.5 Thou/mm3 (1.8-7.7); Neutrophils % (Auto) 84 % (37-80); Nucleated Red Blood Cell % 0 /100 WBC (0); Platelet Count 488 Thou/mm3 (140-440); RDW Standard Deviation 58.3 fL (36.4-46.3); Red Blood Count 3.15 Miln/mm3 (4.00-5.20); White Blood Count 17.2 Thou/mm3 (3.6-11.0)
[2024-12-26] MEDS: BUDESONIDE RT 0.5 MG/2 ML NEBU INH ×2 (06:32→19:16)
[2024-12-26 06:33] LABS: INR 1.1 (0.9-1.3); Prothrombin Time 12.2 Seconds (9.0-12.2)
[2024-12-26 07:03] LABS: Alanine Aminotransferase 25 U/L (10-49); Albumin, Serum 3.9 gm/dL (3.4-4.8); Albumin/Globulin Ratio 1.3 (1.2-2.2); Alkaline Phosphatase 100 U/L (46-116); Anion Gap 13 (7-16); Aspartate Amino Transferase 48 U/L (0-34); BUN/Creatinine Ratio 8 Ratio (12-20); Bilirubin,Total 0.4 mg/dL (0.3-1.2); Blood Urea Nitrogen 44 mg/dL (9-23); Calcium 9.2 mg/dL (8.3-10.6); Calcium (Corrected) 9.3 mg/dL (8.5-10.1); Carbon Dioxide 28.2 mMol/L (20.0-31.0); Chloride 100 mMol/L (98-107); Creatinine (Component) 5.4 mg/dL (0.6-1.3); Estimated Creatinine Clearance 5.7 mL/min (>60); Globulin 3.1 gm/dL (2.3-3.5); Glucose 196 mg/dL (74-106); Magnesium 1.7 mg/dL (1.6-2.6); Osmolality,Calculated 297 (275-295); Phosphorous 3.4 mg/dL (2.4-5.1); Sodium 141 mMol/L (136-145); eGFR 7 See Note
[2024-12-26] MEDS: LEVALBUTEROL RT 0.31 MG/3 ML NEBU INH ×2 (08:09→19:16)
[2024-12-26] MEDS: SODIUM CHLORIDE RT SOL 0.9% 3 ML NEBU INH (08:09)
--- NOTE | 2024-12-26 08:31 | XR_ITS ---
Examination: AP chest single view Technique one AP portable upright chest single view Exam date and time: December 26, 2024 0925 hours Comparison December 24, 2024 INDICATIONS: Shortness of breath today. FINDINGS: Mild heart failure Mild to moderate enlargement left ventricle Prominent vascular congestion with early septal edema Prominent osteopenia IMPRESSION: Mild heart failure
[2024-12-26] MEDS: SENNA TABLET 1 TAB PO (08:39)
[2024-12-26] MEDS: METOPROLOL SUCCINATE XL 25 MG TABCR PO (08:39)
[2024-12-26] MEDS: PANTOPRAZOLE INJ 40 MG VIAL IVP (08:39)
--- NOTE | 2024-12-26 08:43 | PC.SS ---
[employer] DEVELOPER fielded phone call from [facility] staff, Yesica; confirming that patient is aligned with [facility] (nursing and PT).
--- NOTE | 2024-12-26 08:44 | PC.SS ---
Update: Patient to receive dialysis today.
[2024-12-26 08:53] LABS: Base Excess 4 (-3-3); HCO3 29 mEq/L (20-26); Inspired Oxygen, FIO2 21 %; O2 Saturation 97 % (91-98); PCO2 44 mmHg (32.0-48.0); PO2 80 mmHg (83-108); pH, Arterial 7.42 (7.35-7.45)
[2024-12-26 08:56] LABS: Allen Test Performed/OK; Puncture Site Left Radial
--- NOTE | 2024-12-26 13:48 | ESPR_ITS ---
<Statement entered by Kem Seay MD - 12/27/24 08:56> I discussed with and supervised the wireless internet installer physician involved in the care of this patient. Patient assessment and plan was discussed with entire medicine team, including my attending. I agree with the assessment and plan as documented by wireless internet installer doctor. Patient care was discussed with my attending physician Dr. Jona Seay, PGY-2 Documentation for date of: 12/26/24 Subjective Subjective Interval history: Patient seen and examined at bedside. Patient has increased work of breathing, SpO2 within normal limits, was started on high flow nasal cannula to provide some positive pressure, ordered ABG which showed pH 7.42, pCO2 44. Repeat chest x-ray does show mild congestive heart failure, compared to chest x- ray from 2 days ago there is slight improvement. Patient's breathing treatments were changed to Xopenex and Pulmicort, will continue. Patient was seen by pigment making supervisor Dr. Coley, patient has about 4 L fluid removed throughout the hospitalization Patient's family at bedside, requesting further workup for granulomatosis with polyangiitis ordered ANCA screen, ESR CRP Patient's potassium 3.0, will give p.o. potassium. Cardiology is following the case closely Patient will be started on promethazine for insomnia and melatonin at 6 PM daily Exam Vital Signs Temp Pulse Resp BP Pulse Ox O2 Del Method O2 Flow Rate 97.2 F 98 24 H 115/91 H 100 Nasal Cannula 2 12/26/24 12:00 12/26/24 12:00 12/26/24 12:00 12/26/24 12:00 12/26/24 12:00 12/26/24 12:00 12/26/24 12:00 FiO2 24 12/26/24 12:00 Narrative Exam General: AOx3, moderate respiratory distress, speaks in 2-3 word sentences HEENT: NC/AT, mucous membranes moist Cardiovascular: irregular rhythm,,4/6 ESM in aortic area raditing to carotids, PSM mitral area. Pulmonary: on 2 L NC, mild respiratory distress, crackles auscultated bilaterally, speaks in short sentences, accessory muscle use noted Abdominal: soft, non-tender, non-distended, no rebound/guarding, normal bowel sounds present Musculoskeletal: 3+ pitting bilateral lower extremity edema Skin: warm and dry, intact, no rashes Neuro: CN II-XII intact, no focal deficits Objective Labs 12/26/24 05:31 12/26/24 05:31 Labs: Laboratory Results - last 24 hr 12/25/24 12/26/24 12/26/24 20:22 05:31 08:44 WBC 17.2 H D RBC 3.15 L Hgb 9.2 L Hct 27.5 L MCV 87 MCH 29.2 MCHC 33.5 RDW Std Deviation 58.3 H Plt Count 488 H D Neut % (Auto) 84 H Lymph % (Auto) 5 L [place] % (Auto) 9 Eos % (Auto) 0 Baso % (Auto) 0 Neut # (Auto) 14.5 H Lymph # (Auto) 0.9 L [place] # (Auto) 1.6 H Eos # (Auto) 0.0 Baso # (Auto) 0.0 Immature Gran # (Auto) 0.18 H Absolute Nucleated RBC 0.00 Immature Gran % 1 H Nucleated RBC % 0 PT 12.2 INR 1.1 Puncture Site Left Radial ABG pH 7.42 ABG pCO2 44 ABG pO2 80 L ABG HCO3 29 H ABG O2 Saturation 97 ABG Base Excess 4 H FiO2 21 Sodium 141 Potassium 3.9 D 3.0 L D Chloride 100 Carbon Dioxide 28.2 Anion Gap 13 BUN 44 H Creatinine 5.4 H* D Estim Creat Clear Calc 5.7 L eGFR 7 L* BUN/Creatinine Ratio 8 L Glucose 196 H Calculated Osmolality 297 H Calcium 9.2 Corrected Calcium 9.3 Phosphorus 3.4 Magnesium 1.7 Total Bilirubin 0.4 AST 48 H ALT 25 Alkaline Phosphatase 100 Total Protein 7.0 Albumin 3.9 Globulin 3.1 Albumin/Globulin Ratio 1.3 ABG Interpretation ABG results: 12/26/24 08:44 ABG pH 7.42 ABG pCO2 44 ABG pO2 80 L ABG HCO3 29 H ABG O2 Saturation 97 ABG Base Excess 4 H Quality Measures Quality Measures none Advance care planning discussed with:: patient and child Assessment & Plan Assessment Current Active Medications: Generic Name Dose Route Start Last Admin Trade Name Freq PRN Reason Stop Dose Admin Acetaminophen 650 mg 12/24/24 14:41 12/26/24 03:15 Acetaminophen 325 Mg Tablet PO 01/23/25 14:40 650 mg Q6H PRN Administration Pain (1-3) & Fever >100.3 Budesonide 0.5 mg 12/24/24 19:00 12/26/24 06:32 Budesonide Rt 0.5 Mg/2 Ml Nebu INH 01/23/25 18:59 0.5 mg BIDRT SABRINA Administration Levalbuterol HCl 0.31 mg 12/26/24 04:19 12/26/24 08:09 Levalbuterol Rt 0.31 Mg/3 Ml Nebu INH 01/25/25 04:18 0.31 mg Q4HR PRN Administration WHEEZING Metoprolol Succinate 25 mg 12/24/24 18:30 12/26/24 08:39 Metoprolol Succinate Xl 25 Mg Tabcr PO 01/23/25 18:29 25 mg QDAY SABRINA Administration Ondansetron HCl 4 mg 12/24/24 14:41 12/26/24 03:58 Ondansetron Inj 2 Mg/Ml Inj 2 Ml IV 01/23/25 14:40 4 mg Q6H PRN Administration NAUSEA OR VOMITING Protocol Pantoprazole Sodium 40 mg 12/27/24 09:00 Pantoprazole Inj 40 Mg Vial IVP 01/26/25 08:59 DAILY SABRINA Promethazine HCl 25 mg 12/26/24 13:17 Promethazine Hcl 25 Mg Tablet PO 01/25/25 13:16 HS PRN Insomia Sennosides 1 tab 12/24/24 21:00 12/26/24 08:39 Senna Tablet PO 01/23/25 20:59 1 tab BID SABRINA Administration Protocol Sodium Chloride 3 ml 12/24/24 22:40 12/26/24 08:09 Sodium Chloride Rt Annika 0.9% 3 Ml Nebu INH 01/23/25 22:39 3 ml PRN PRN Administration SOLN Plan Assessment and plan: Summary: Mr. 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 Patient admitted to the hospital for fluid overload, CHF exacerbation management. 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 On presentation was satting well on room air, eventually needed supplemental oxygen to maintain saturation more than 92, BNP on presentation 1691, CTA negative for PE chest x-ray showed mild CHF. Bilateral crackles heard on physical exam, 3+ bilateral lower extremity pitting edema. Echocardiogram on 11/30/2024: Normal LV size and function. EF 55-60%. Diastolic dysfunction present but cannot be graded. Normal RV size and function. Estimated RVSP moderately elevated RVSP 55 mmHg. Moderate-severe . AV Vmax 3.8 m/s, mean PG 38 mmHg. LATRICE 0.5 cm^2. Severe posterior MAC and moderate anterior MAC with mild mitral stenosis. Mean PG 5 mmHg. Moderate-severe MR. Moderate TR and mild to moderate AI. Moderately dilated LA and mildly dilated RA. Patient has had about 4 L removed net throughout hospitalization per nephrology. There is suspicion of ultrafiltration failure. Plan: - Nephrology consulted, continue peritoneal dialysis per nephrology. - Strict intake and output - Fluid restriction - Monitor daily weights - Cardiology consulted, appreciate recommendations - Patient has some insomnia, anxiety started on melatonin 3 mg at 6 PM and promethazine at bedtime as needed #Acute on chronic normocytic normochromic anemia Multifactorial reason, does have CKD, transfused 1 unit PRBC in ED Iron 47, TIBC 295, iron sat 20%, unsaturated iron binding 178, LDH 453, vitamin B12 347, folate 10.05 Reticulocyte count 4.1%, absolute reticulocyte 132.2, immature reticulocyte fraction 44.7 PBS shows severe normocytic normochromic anemia with anisocytosis. Mild thrombocytosis, unremarkable granulocytes. Pathology recommends ruling out acute/subacute bleed. Plan: - Follow fecal occult blood - Hold 1 unit PRBC, will transfuse if hemoglobin around 8 #? MAT vs new onset atrial fibrillation with RVR vs frequent PACs Patient presents with shortness of breath and found to have abnormal EKG that showed irregular, sinus rhythm with multiple PACs, incomplete RBBB, and QTc 523. EKG also showing multiple different P wave morphologies. Of note, patient has moderately dilated LA as seen on echo on 11/30/2024 in setting of moderate-severe aortic stenosis. Thus, with multiple P wave morphologies, likely patient has MAT rather than new onset atrial fibrillation with RVR. Additionally, K noted to be low at 3.1 and hemoglobin also low at 6.6 that may be contributing/aggravating factors. [id number] score of 7 and HAS-BLED score of 5. Given recent history of blood- tinged emesis as well as hemoglobin of 6.6, recommend to hold off on AC if A- fib. Of note, patient noted to have home Rx of clopidogrel 75 mg, recommend to hold as well. Plan: ? Continue metoprolol succinate 25 mg daily ? Telemetry monitoring #GERD #Gastritis #? GI bleed Patient did have an episode of hematemesis outpatient, 14 days postdischarge from hospital, was switched from Eliquis to Plavix. Hemoglobin on presentation was 6.6, was transfused 1 unit PRBC. Patient on Tums 4 times a day at home CTA chest showed suspicious finding of free air under diaphragm, KUB unremarkable. - Continue Protonix 40 mg IV daily - Follow fecal occult blood test #Hyperlipidemia Lipid panel from previous admission: cholesterol 138, LDL 83, HDL 43, triglycerides 58 ? Continue home dose atorvastatin 40 mg daily #Hypertension Patient on metoprolol tartrate at home for blood pressure management ? Continue metoprolol succinate 25 mg daily #Asthma Longstanding history of asthma, uses inhalers at home - Pulmicort twice daily - Xopenex every 4 hours as needed #History of CVA Hold Plavix, suspicion of GI bleed #Right hip fracture, s/p FNS on 12/01 #Right shoulder fracture, s/p CRIF on 12/01 #Osteoarthritis Consulted physical therapy #Antonia's granulomatosis Stable currently, was on rituximab in the past Family requested workup, ordered ANCA screen, ESR CRP DVT prophylaxis: No DVT prophylaxis in setting of suspected GI bleed and anemia GI prophylaxis: IV Protonix daily Diet: Renal, food restriction 1500 cc Lines: Peripheral IV Code status: Full code Case discussed with Attending Dr. Tenorio and my senior Dr Seay PGY2 Misha Mcgowan PGY1 Attending Provider Attestation/Addendum 84-year-old female with end-stage renal disease on peritoneal dialysis. Patient is admitted for fluid overload. She is tachypneic. She is on oxygen supplementation. The patient has severe aortic stenosis as well. She has diastolic heart failure. Patient has been serology service. She will continue on PD for now. Sepsis alert called this afternoon. To rule out SBP. The patient was started on empiric antibiotic. Discussed with housestaff.
[2024-12-26] MEDS: POTASSIUM CHLORIDE 10% 20 MEQ/15 ML UDC 40 MEQ PO (14:27)
--- NOTE | 2024-12-26 14:30 | ESPR_ITS ---
RE: WHIT TITUS : 1940 DATE OF SERVICE: 12/26/2024 HISTORY OF PRESENT ILLNESS: This 84-year-old -[place] woman with Antonia's granulomatosis 25 years ago, status post CVA, heart failure with preserved EF of 55-60%, severe aortic stenosis, atrial fibrillation, ESRD on peritoneal dialysis for the past 4 years in [place], who presented to the emergency room on 12/24/2024 with increasing shortness of breath. The patient was dialyzed through peritoneal dialysis aggressively for the past 2 days. The patient has been tachypneic since sales and service consultant; however, O2 sat is 97-100%. Chest x-ray has improved since admission and had about 2 liters off since last night. The patient is currently asleep, daughter and son by the bedside. CURRENT MEDICATIONS: 1. Acetaminophen. 2. Budesonide. 3. Epogen 1000 units x1. 4. Hydroxyzine 12.5 mg x1. 5. Levalbuterol. 6. Melatonin. 7. Ondansetron. 8. Protonix 40 mg IV daily. 9. Promethazine. 10. Senokot. PHYSICAL EXAMINATION: General: Asleep did not bother her. Vital Signs: Blood pressure is 115/91, heart rate of 98, respiratory rate of 24, O2 saturation 100% on 2 liters of oxygen via nasal cannula. HEENT: Anicteric sclerae. Normocephalic. Chest and Lungs: Symmetric expansion. Abdomen: Soft. Extremities: No edema on both lower extremities. LABORATORY DATA: Hemoglobin 9.2, WBC 17,200, platelet count 488,000. Sodium 141, potassium 3, chloride 100, CO2 of 28.2, BUN of 44, creatinine 5.4, glucose 196, calcium 9.2, phosphorus 3.4. AST 48, ALT 25, albumin 3.9. Chest x-ray, mild heart failure, prominent vascular congestion with early septal edema much better compared to her chest x-ray on 12/24/2024. ASSESSMENT: 1. 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 2. Volume overload secondary to ultrafiltration failure, now improving. 3. Anemia of chronic kidney disease. 4. History of hypertension. 5. Severe aortic stenosis. 6. History of right hip fracture, status post femoral neck system and closed reduction internal fixation. 7. Hypoxia secondary to fluid overload, now improved. 8. Hypokalemia secondary to intense peritoneal dialysis and poor intake. PLAN: Continue to replete potassium as she is hypokalemic. We will continue regular peritoneal dialysis today using 2 red bags, 5 exchanges, 1500 mL per exchange for a total of 10 hours. I suspect that patient has anxiety reaction. Continue supportive treatment. Make sure the patient also has DVT prophylaxis. DT: 13:37:41 TT: 14:28:00 Ref: [id number] - TID: [id number] MTDD
--- NOTE | 2024-12-26 14:51 | PC.SS ---
Rounding Note: Patient on high flow nasal cannula. Patient participates with peritoneal dialysis.
--- NOTE | 2024-12-26 15:59 | ESPR_ITS ---
Documentation for date of: 12/26/24 Subjective Subjective Interval history: Patient seen and examined in the AM. Patient seemed more confused today, she said she was at the spiritism. Family was able to redirect her. Patient denies any chest pain. Currently on HFNC. On PD dialysis. Exam Vital Signs Temp Pulse Resp BP Pulse Ox O2 Del Method O2 Flow Rate 97.2 F 98 16 115/91 H 100 Nasal Cannula 25 12/26/24 12:00 12/26/24 14:00 12/26/24 14:00 12/26/24 12:00 12/26/24 14:00 12/26/24 12:00 12/26/24 14:00 FiO2 30 12/26/24 14:00 Narrative Exam General: AOx3, moderate respiratory distress, speaks in 2-3 word sentences HEENT: NC/AT, mucous membranes moist Cardiovascular: irregular rhythm,,4/6 ESM in aortic area raditing to carotids, PSM mitral area. Pulmonary: on HFNC, mild respiratory distress, crackles auscultated bilaterally, speaks in short sentences, accessory muscle use noted Abdominal: soft, non-tender, non-distended, no rebound/guarding, normal bowel sounds present Musculoskeletal: 3+ pitting bilateral lower extremity edema Skin: warm and dry, intact, no rashes Neuro: CN II-XII intact, no focal deficits Objective Labs 12/26/24 18:19 12/26/24 18:19 Labs: Laboratory Results - last 24 hr 12/25/24 12/26/24 12/26/24 20:22 05:31 08:44 WBC 17.2 H D RBC 3.15 L Hgb 9.2 L Hct 27.5 L MCV 87 MCH 29.2 MCHC 33.5 RDW Std Deviation 58.3 H Plt Count 488 H D Neut % (Auto) 84 H Lymph % (Auto) 5 L [place] % (Auto) 9 Eos % (Auto) 0 Baso % (Auto) 0 Neut # (Auto) 14.5 H Lymph # (Auto) 0.9 L [place] # (Auto) 1.6 H Eos # (Auto) 0.0 Baso # (Auto) 0.0 Immature Gran # (Auto) 0.18 H Absolute Nucleated RBC 0.00 Immature Gran % 1 H Nucleated RBC % 0 PT 12.2 INR 1.1 Puncture Site Left Radial ABG pH 7.42 ABG pCO2 44 ABG pO2 80 L ABG HCO3 29 H ABG O2 Saturation 97 ABG Base Excess 4 H FiO2 21 Sodium 141 Potassium 3.9 D 3.0 L D Chloride 100 Carbon Dioxide 28.2 Anion Gap 13 BUN 44 H Creatinine 5.4 H* D Estim Creat Clear Calc 5.7 L eGFR 7 L* BUN/Creatinine Ratio 8 L Glucose 196 H Calculated Osmolality 297 H Calcium 9.2 Corrected Calcium 9.3 Phosphorus 3.4 Magnesium 1.7 Total Bilirubin 0.4 AST 48 H ALT 25 Alkaline Phosphatase 100 Total Protein 7.0 Albumin 3.9 Globulin 3.1 Albumin/Globulin Ratio 1.3 ABG Interpretation ABG results: 12/26/24 08:44 ABG pH 7.42 ABG pCO2 44 ABG pO2 80 L ABG HCO3 29 H ABG O2 Saturation 97 ABG Base Excess 4 H Quality Measures Quality Measures none Advance care planning discussed with:: child Assessment & Plan Assessment Current Active Medications: Generic Name Dose Route Start Last Admin Trade Name Freq PRN Reason Stop Dose Admin Acetaminophen 650 mg 12/24/24 14:41 12/26/24 03:15 Acetaminophen 325 Mg Tablet PO 01/23/25 14:40 650 mg Q6H PRN Administration Pain (1-3) & Fever >100.3 Budesonide 0.5 mg 12/24/24 19:00 12/26/24 06:32 Budesonide Rt 0.5 Mg/2 Ml Nebu INH 01/23/25 18:59 0.5 mg BIDRT SABRINA Administration Levalbuterol HCl 0.31 mg 12/26/24 04:19 12/26/24 08:09 Levalbuterol Rt 0.31 Mg/3 Ml Nebu INH 01/25/25 04:18 0.31 mg Q4HR PRN Administration WHEEZING Melatonin 3 mg 12/26/24 18:00 Melatonin 3 Mg Tablet PO 01/25/25 17:59 HS SABRINA Metoprolol Succinate 25 mg 12/24/24 18:30 12/26/24 08:39 Metoprolol Succinate Xl 25 Mg Tabcr PO 01/23/25 18:29 25 mg QDAY SABRINA Administration Ondansetron HCl 4 mg 12/24/24 14:41 12/26/24 03:58 Ondansetron Inj 2 Mg/Ml Inj 2 Ml IV 01/23/25 14:40 4 mg Q6H PRN Administration NAUSEA OR VOMITING Protocol Pantoprazole Sodium 40 mg 12/27/24 09:00 Pantoprazole Inj 40 Mg Vial IVP 01/26/25 08:59 DAILY SABRINA Promethazine HCl 25 mg 12/26/24 13:17 Promethazine Hcl 25 Mg Tablet PO 01/25/25 13:16 HS PRN Insomia Sennosides 1 tab 12/24/24 21:00 12/26/24 08:39 Senna Tablet PO 01/23/25 20:59 1 tab BID SABRINA Administration Protocol Sodium Chloride 3 ml 12/24/24 22:40 12/26/24 08:09 Sodium Chloride Rt Annika 0.9% 3 Ml Nebu INH 01/23/25 22:39 3 ml PRN PRN Administration SOLN Plan Tho Lee is an 84-year-old female with a past medical history of Antonia's granulomatosis diagnosed 25 years ago, 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 Cardiology consulted due to history of aortic stenosis, new onset afib, and CHF exacerbation. #Acute hypoxic respiratory failure Presents with shortness of breath, orthopnea, PND, and bilateral lower extremity edema. Suspect that AHRF is multifactorial, with acute CHF exacerbation being a component but patient also noted to have irregular EKG, anemia of 6.6, and history of moderate-severe aortic stenosis. CTA chest showed pulmonary edema and vascular congestion, consistent with acute CHF exacerbation and negative for PE. See rest of A&P below for further assessment and recommendations. #? MAT vs new onset atrial fibrillation with RVR vs frequent PACs Patient presents with shortness of breath and found to have abnormal EKG that showed irregular, sinus rhythm with multiple PACs, incomplete RBBB, and QTc 523. EKG also showing multiple different P wave morphologies. Of note, patient has moderately dilated LA as seen on echo on 11/30/2024 in setting of moderate- severe aortic stenosis. Thus, with multiple P wave morphologies, likely patient has MAT rather than new onset atrial fibrillation with RVR. Additionally, K noted to be low at 3.1 and hemoglobin also low at 6.6 that may be contributing/aggravating factors. [id number] score of 7 and HAS-BLED score of 5. Given recent history of blood- tinged emesis as well as hemoglobin of 6.6, recommend to hold off on AC if A- fib. Of note, patient noted to have home Rx of clopidogrel 75 mg, recommend to hold as well. ? Recommend metoprolol succinate 25 mg daily ? Treat underlying cause, aortic stenosis vs hypokalemia vs anemia #Acute diastolic CHF exacerbation #History of HFpEF (EF 55-60% 11/2024) #NSTEMI type II/demand ischemia #Pulmonary hypertension, mild to moderate In addition to shortness of breath patient also endorses orthopnea, PND, and bilateral lower extremity edema. BNP 1691 and troponin peaked at 0.144. Suspect demand ischemia secondary to acute CHF exacerbation in addition to history of moderate-severe aortic stenosis and low intravascular volume (acute on chronic anemia with initial hemoglobin of 6.6), leading to decreased tissue oxygenation/perfusion. ? Given that patient is anuric, will not be able to diurese and Sette will have to remove fluid via peritoneal dialysis ? Nephrology following, appreciate recommendations ? Strict I's and O's ? Fluid restrictions ? Daily weights - highly recommend to place patient in HD dialysis. #Acute on chronic normocytic anemia Has baseline anemia with hemoglobin of 8.5-9.0, but presents with hemoglobin 6.6. Was noted to be on eliquis 2.5 mg PO BID for post-surgical DVT prophylaxis as well as home rx of clopidogrel. Apparently, patient also had blood-tinged emesis but denies melena and hematochezia. Recommend full anemia work-up and transfusion of total of 2 units pRBC. #Moderate-severe aortic stenosis #Moderate-severe mitral regurgitation Echo on 11/30/2024: Normal LV size and function. EF 55-60%. Diastolic dysfunction present but cannot be graded. Normal RV size and function. Estimated RVSP moderately elevated RVSP 55 mmHg. Moderate-severe . AV Vmax 3.8 m/s, mean PG 38 mmHg. LATRICE 0.5 cm^2. Severe posterior MAC and moderate anterior MAC with mild mitral stenosis. Mean PG 5 mmHg. Moderate-severe MR. Moderate TR and mild to moderate AI. Moderately dilated LA and mildly dilated RA. ? Follow-up outpatient for further TAVR evaluation #Hyperlipidemia Lipid panel from previous admission: cholesterol 138, LDL 83, HDL 43, triglycerides 58 ? Continue home dose atorvastatin 40 mg daily #Hypertension Patient on metoprolol tartrate at home for blood pressure management ? Recommend metoprolol succinate 25 mg daily as above #Right hip fracture, s/p FNS on 12/01 #Right shoulder fracture, s/p CRIF on 12/01 #ESRD on PD #Antonia's granulomatosis #GERD #Gastritis #History of CVA #Asthma #Osteoarthritis ? Management of above conditions per primary team and other consultants ----- - Patient's care was discussed with my attending physician, Dr. Matt Osborne MD Internal Medicine PGY-3 Attending Provider Attestation/Addendum I have personally seen and examined the patient separately on the above date of service and discussed the plan of care with the resident. I reviewed the resident Dr. Jeannie Holguin consultation progress note and agree with the resident findings and plan in the note above and have also edited the documentation to reflect my findings and plan. Mrs. 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 Patient was recently discharged from the hospital after recent fall status post right femur fracture and repair in November 2024. During this admission patient was diagnosed with moderate to severe moderate to severe MR and mild MS on diastolic dysfunction by the echo. Patient was discharged home with home PT and also on Eliquis 2.5 mg twice daily for anticoagulation for DVT prophylaxis. Patient apparently developed some streaks of blood in the cough and the Eliquis was stopped. Patient continued to have worsening shortness of breath since the time of discharge and only progressed to the level that now she has orthopnea PND as well as significant shortness of breath at rest. Patient not able to speak in full sentences. On examination patient also does have at least 2+ edema more on the dependent areas. Denies any Fever or chills or cough or sputum production. Denies any chest pain chest pressure or palpitations or dizziness or syncope or fall. Has not been ambulating much since her discharge. Initial EKG showed atrial fibrillation with RVR at around 131 bpm. Review of the telemetry now shows normal sinus rhythm with frequent PACs. Chest CTA was performed which showed significant vascular congestion along with septal pulmonary edema and no evidence of any PE and 8 mm, 12 known pulmonary nodules. Chest x-ray showed recent subacute fracture of the right humerus. Labs showed severe anemia with hemoglobin of 6.6 and platelets of 486 and WBC of 10.5 INR was 1.1. Sodium 137, potassium was 3.0 and chloride of 96 and BUN of 61 creatinine of 6.6 initial troponin was 0.144 and repeat was 0.139. BNP was 1691 and previous was only in the 300s LFTs were normal albumin was low at 3.2. Blood pressure was elevated on arrival at around 150-160 mmHg. Heart rate was 131 and now better controlled around 96 bpm. She is tachypneic around 25 to 30/min and saturations are 96% on 2 L oxygen via nasal cannula Assessment and plan: 1. Shortness of breath with orthopnea and PND - multifactorial mostly secondary to fluid overload from inadequate dialysis as well as moderate severe aortic stenosis, MR and severe anemia at 6.6 with component of pulmonary hypertension 2. End-stage renal disease on peritoneal dialysis secondary to Antonia's granulomatosis for the past 4 years 3. Moderate to severe carotid stenosis but valve area less than 1 cm? 4. Moderate to severe MR 5. Antonia's granulomatosis diagnosed 25 years ago 6. History of CVA or stroke 15 years ago with residual right hemiparesis 7. Diastolic congestive heart failure 8. Essential hypertension 9. Recent fall status post right femur fracture and repair, right humeral fracture with conservative treatment 10. Pulmonary hypertension-mild to moderate 11. hyperlipidemia 12. Chronic asthma on inhalers, chronic anemia osteoarthritis, osteoporosis, GERD Patient presented with acute hypoxic respiratory failure mostly secondary to fluid overload which is multifactorial secondary to inadequate dialysis from the peritoneal dialysis, moderate to severe aortic stenosis, moderate to severe MR, severe anemia with hemoglobin of 6.6 as well as a component of mild to moderate PAH. Recommend to transfuse 2 units of PRBC first unit now and second unit after the dialysis session. Urgent peritoneal dialysis as patient cannot be transitioned to hemodialysis catheter is no tunnel dialysis catheter could be placed today. Nephrology consulted by primary team. Recommend daily dialysis for the next couple of days as patient is fluid overloaded with a BNP elevated 6091 and previously was in the 300s. CTA was negative for PE and also any kind of pneumonia. Also recommended she had complete anemia workup from the labs sent earlier this morning and not the labs after the transfusion. Recommend to give iron transfusions if the patient has low or iron deficiency anemia. Patient presented with tachycardia and questionable atrial fibrillation. Patient does show significant P waves and patient possibly has multifocal atrial tachycardia versus atrial fibrillation but now already in the telemetry patient is in normal sinus rhythm with only PACs. Recommend only beta-pratik metoprolol XL 25 mg for now and hold off on anticoagulation given the severe anemia and also recent blood-tinged hemoptysis versus emesis. Will restart anticoagulation at a later date if atrial fibrillation is confirmed. Continue to monitor telemetry. Keep potassium between 4-5 and magnesium greater than 2.0 at all times. Her most recent echo as noted below and has moderate to severe aortic stenosis with a V-max of 3.8 m/s and mean PG of 38 mmHg and aortic valve area of 0.5 cm?, moderate to severe MR, mild mitral stenosis with mean PG of 5 mmHg, moderate TR as well as diastolic dysfunction. Patient needs to continue to workup further at SAVR versus TAVR as outpatient For which she was scheduled to see me in the office next week but will await for her to recover from the recent fall and the hip fracture s/p repair. Will expect the MR to improve after the aortic valve replacement for but overall given her age and dialysis and it is not ideal to do any repair for her mitral valve regurgitation or the mild MS. 12/27/2024: Patient was seen and examined at the bedside. Patient is again severely short of breath today and tachypneic and cannot speak a few words. Patient did have 2 sessions of peritoneal dialysis for a total of up to 20 hours since admission. Unfortunately patient's oxygen requirements have been increasing this afternoon and primary team, nephrology apparently spoke to the patient's daughter regarding hemodialysis catheter is PD catheter might not be functioning well. Patient also complains of abdominal pain and nephrology recommended to get a cell count to rule out and kind of spontaneous bacterial peritonitis./SBP. Overall rest of the labs and vitals appear to be stable at baseline. Beta- pratik can be started for MAT and frequent PACs if blood pressure is permissible. Discussed with the family at bedside in detail for another half hour and they did not want hemodialysis but are considering now and will discuss with the family before making the final decision. She will need to follow-up patient to continue the TAVR workup. Management of rest of the medical conditions as per primary team and other consultants. Thank you for the consult and allowing me to participate in the care of the patient. Cardiology will continue to follow. Jori Olivares M.D. Interventional Cardiology
[2024-12-26 16:03] LABS: Base Excess 5 (-3-3); HCO3 30 mEq/L (20-26); Inspired Oxygen, FIO2 30 %; O2 Saturation 98 % (91-98); PCO2 43 mmHg (32.0-48.0); PO2 84 mmHg (83-108); pH, Arterial 7.46 (7.35-7.45)
[2024-12-26 16:04] LABS: Allen Test Performed/OK; Puncture Site Right Radial
--- NOTE | 2024-12-26 16:59 | PC.PT ---
PT mejia witheld, patient was transitioned to high flow this afternoon. Will try again tomorrow.
--- NOTE | 2024-12-26 17:59 | PD.RESEVENT ---
Documentation for date of: 12/26/24 Event Note Event Note: Rapid response called for the patient at about 1711, patient noted to be tachycardic, tachypneic and does have an elevated WBC count of 17.2 today, no fevers noted patient does have worsening mentation compared to yesterday, later in the evening patient did complain of abdominal pain as well. Patient has received 2 sessions of peritoneal dialysis, first session for about 10 hours and a second prolonged session for about 18 hours has had about 4 L fluid removed. Considering patient does meet SIRS criteria 3/4, decision was made to call sepsis alert. Case was discussed with adult secondary education instructor Dr. Coley regarding possible abdominal infection or peritonitis, adult secondary education instructor agreed with obtaining a cell count and starting patient on IV antibiotics prophylactically. Workup ordered for sepsis, will obtain CBC, CMP, VBG, lactate, Pro-Joe, blood cultures. Chest x-ray was obtained earlier this morning. Patient will be started on IV vancomycin and Zosyn and fluconazole, pharmacy consulted to assist with renal dosing Instructed respiratory therapist to start patient on BiPAP at night with a one-to-one sitter if she tolerates, if patient refuses BiPAP and is not tolerating it, switch back to high flow nasal cannula considering the underlying tachypnea to provide some pressure support. Will follow labs closely, will continue close monitoring. Case discussed with Attending Dr. Tenorio and Dr. Mitchell PGY3. Misha Mcgowan PGY1 Disclaimer: This note was dictated by speech recognition. Minor errors in arm rest builder may be present due to voice recognition software.
--- NOTE | 2024-12-26 18:00 | PC.SS ---
Rapid response initiated on the patient due to Sepsis. Family at bedside.
--- NOTE | 2024-12-26 18:11 | PC.NURSE ---
1710- patient stii tachypneic with sob patient is complaining of abdominal pain, here and said to called sepsis alert , called rapid response then sepsis alert at this time.
--- NOTE | 2024-12-26 18:26 | PC.NURSE ---
vancomycin iv, diflucan iv and zosyn iv were orderd and beed to [facility] as soon as pd culture obtain to be drawn by pd nurse.
[2024-12-26 18:34] LABS: Lactate (Lactic Acid) 1.9 mMol/L (0.4-2.0)
[2024-12-26 18:35] LABS: Base Excess, Venous 5 (-3-3); O2 Saturation, Venous 99 % (96-97); PCO2, Venous 39 mmHg (36-56); PO2, Venous 98 mmHg (15-58); pH, Venous 7.48 (7.33-7.66)
[2024-12-26 18:37] LABS: Basophils % (Auto) 0 % (0-2.5); Eosinophils # (Auto) 0.1 Thou/mm3 (0.0-0.5); Eosinophils % (Auto) 1 % (0-10); Immature Granulocytes % (Auto) 1 % (0-0); Lymphocytes # (Auto) 1.4 Thou/mm3 (1.0-4.8); Lymphocytes % (Auto) 11 % (10-50); Mean Corpuscular HGB Conc 33.8 g/dl (31.0-37.0); Mean Corpuscular Hemoglobin 29.6 pg (25.0-35.0); Mean Corpuscular Volume 88 fL (80-100); Monocytes # (Auto) 1.4 Thou/mm3 (0.0-0.8); Monocytes % (Auto) 10 % (0-12); Neutrophils # (Auto) 10.5 Thou/mm3 (1.8-7.7); Neutrophils % (Auto) 78 % (37-80); Nucleated Red Blood Cell % 0 /100 WBC (0); Platelet Count 425 Thou/mm3 (140-440); RDW Standard Deviation 57.9 fL (36.4-46.3); Red Blood Count 2.74 Miln/mm3 (4.00-5.20); White Blood Count 13.5 Thou/mm3 (3.6-11.0)
[2024-12-26 18:42] LABS: Hemoglobin 8.1 g/dL (12.0-16.0)
[2024-12-26 18:59] LABS: INR 1.1 (0.9-1.3); Partial Thromboplastin Time 25.7 Seconds (22.0-36.0); Prothrombin Time 11.8 Seconds (9.0-12.2)
[2024-12-26 19:05] LABS: Alanine Aminotransferase 30 U/L (10-49); Albumin, Serum 3.4 gm/dL (3.4-4.8); Albumin/Globulin Ratio 1.3 (1.2-2.2); Alkaline Phosphatase 86 U/L (46-116); Anion Gap 12 (7-16); Aspartate Amino Transferase 60 U/L (0-34); BUN/Creatinine Ratio 8 Ratio (12-20); Bilirubin,Total 0.3 mg/dL (0.3-1.2); Blood Urea Nitrogen 42 mg/dL (9-23); Calcium 8.8 mg/dL (8.3-10.6); Calcium (Corrected) 9.3 mg/dL (8.5-10.1); Chloride 98 mMol/L (98-107); Creatinine (Component) 5.4 mg/dL (0.6-1.3); Estimated Creatinine Clearance 5.7 mL/min (>60); Globulin 2.7 gm/dL (2.3-3.5); Glucose 116 mg/dL (74-106); Osmolality,Calculated 283 (275-295); Potassium 3.8 mMol/L (3.4-5.1); Sodium 136 mMol/L (136-145); Total Protein 6.1 gm/dL (5.7-8.2); eGFR 7 See Note
[2024-12-26] MEDS: PIPER/TAZO INJ 4.5 GM in SODIUM CHLORIDE 0.9% (POP) 100 ML IV (20:24)
[2024-12-26] MEDS: MELATONIN 3 MG TABLET PO (21:03)
[2024-12-26] MEDS: VANCOMYCIN/NS 1 GM IVPB 200 ML IV (21:03)
[2024-12-26] MEDS: FLUCONAZOLE/NS 400 MG IVPB 400 MG/200 ML BAG 200 MG IV (21:12)
[2024-12-26 21:19] LABS: Peritoneal Fluid Appearance Clear; Peritoneal Fluid Color Colorless; Peritoneal Fluid Mononuclear 75 %; Peritoneal Fluid Polynuclear 25 %; Peritoneal Fluid WBC 3 /cmm; RBC,Peritoneal Fluid 3 /cmm
[2024-12-27] VITALS (18 sets, daily range): BP systolic 122–156; BP diastolic 66–91; PULSE 66–95; RESP 15–36; TEMP 36.1–36.4; O2SAT 100; BMI 25.4
[2024-12-27] MEDS: LEVALBUTEROL RT 0.31 MG/3 ML NEBU INH ×4 (00:01→20:55)
--- NOTE | 2024-12-27 02:02 | PC.NURSE ---
PD MACHINE ALARMING, CAUTION: NEGATIVE UF . ARLENE, PD RN MADE AWARE. STATES SHE WILL COME IN TO FIX ALARM
--- NOTE | 2024-12-27 02:27 | PC.NURSE ---
Multiple drain alarms, dialysate input 6.0, efffluent out 5.9. Peritoneal dialysis stopped due to poor drain, attached 60 cc syringe to catheter able to onlly pull out [address] Coley called and informed of problems. She agreed to take pt off of PD.
--- NOTE | 2024-12-27 02:52 | PC.NURSE ---
DURING RN LUNCH BREAK, PD RN CAME AND DISCONNECTED PT FROM PD.
[2024-12-27] MEDS: ACETAMINOPHEN 325 MG TABLET 650 MG PO ×2 (04:36→16:33)
[2024-12-27] MEDS: PIPER/TAZO 2.25 GM 2.25 GM/50 ML BAG IV ×3 (05:03→21:11)
[2024-12-27 05:30] LABS: Base Excess 6 (-3-3); HCO3 30 mEq/L (20-26); Inspired Oxygen, FIO2 28 %; O2 Saturation 98 % (91-98); PCO2 46 mmHg (32.0-48.0); PO2 83 mmHg (83-108); pH, Arterial 7.43 (7.35-7.45)
[2024-12-27 05:32] LABS: Allen Test Performed/OK; Puncture Site Right Radial
[2024-12-27 06:47] LABS: INR 1.1 (0.9-1.3); Prothrombin Time 12.2 Seconds (9.0-12.2)
[2024-12-27] MEDS: BUDESONIDE RT 0.5 MG/2 ML NEBU INH ×2 (06:49→18:39)
[2024-12-27 07:34] LABS: Alanine Aminotransferase 25 U/L (10-49); Albumin, Serum 3.1 gm/dL (3.4-4.8); Albumin/Globulin Ratio 1.2 (1.2-2.2); Alkaline Phosphatase 81 U/L (46-116); Anion Gap 14 (7-16); Aspartate Amino Transferase 46 U/L (0-34); BUN/Creatinine Ratio 8 Ratio (12-20); Bilirubin,Total 0.4 mg/dL (0.3-1.2); Blood Urea Nitrogen 41 mg/dL (9-23); C-Reactive Protein 3.6 mg/dL (0.0-0.9); Calcium 8.4 mg/dL (8.3-10.6); Calcium (Corrected) 9.1 mg/dL (8.5-10.1); Carbon Dioxide 25.9 mMol/L (20.0-31.0); Chloride 100 mMol/L (98-107); Creatinine (Component) 5.4 mg/dL (0.6-1.3); Estimated Creatinine Clearance 5.6 mL/min (>60); Free T4 (Free Thyroxine) 1.57 ng/dL (0.89-1.76); Globulin 2.5 gm/dL (2.3-3.5); Glucose 98 mg/dL (74-106); Magnesium 1.6 mg/dL (1.6-2.6); Osmolality,Calculated 289 (275-295); Phosphorous 3.6 mg/dL (2.4-5.1); Potassium 4.2 mMol/L (3.4-5.1); Sodium 140 mMol/L (136-145); Thyroid Stimulating Hormone 0.35 uIU/mL (0.55-4.78); Total Protein 5.6 gm/dL (5.7-8.2); eGFR 7 See Note
--- NOTE | 2024-12-27 08:47 | PC.SS ---
FORMULA MAKER conducted bedside contact with the patient conduct initial assessment and to discuss discharge planning.? Patient currently on high flow oxygen.? At bedside with patient was daughter, Velia Rodriguez.? Information provided by patient?s daughter.? Patient resides at home with daughter.? Patient utilizes a wheelchair for mobility.? Patient does not utilize home oxygen.? Patient is able to complete ADL?s independently.? Patient?s medical surrogate decision maker is daughter, Velia Rodriguez.? Patient?s PCP is Dr. Woodruff ([place]).? Patient?s rework operator is Dr. Campa.? Patient is a peritoneal dialysis patient.? Followed by Dr. Coley.? Patient utilizes [facility] for medication services.? Patient aligned with [facility] will resume services upon discharge.? Plan is for the patient to return home.? Family will provide transportation on behalf of the patient.? Patient possesses following forms of DME: hospital bed, commode and wheelchair.? administrative services officer to follow patient?s need for possible home oxygen prior to discharge.? If oxygen required social work msw to submit referral. ?No further discharge needs identified by the patient?s daughter.? No further intervention required at this time, social work msw will be available to address any further concerns.? Next of Kin: Ame Michael D/C Plan: Home
[2024-12-27 09:08] LABS: Vancomycin,Random 19.8 mcg/mL
[2024-12-27 09:19] LABS: Basophils % (Auto) 0 % (0-2.5); Eosinophils # (Auto) 0.2 Thou/mm3 (0.0-0.5); Eosinophils % (Auto) 2 % (0-10); Hematocrit 23.4 % (36.0-46.0); Immature Granulocytes % (Auto) 1 % (0-0); Immature Granulocytes Auto 0.06 Thou/mm3 (0.00-0.00); Lymphocytes # (Auto) 1.8 Thou/mm3 (1.0-4.8); Lymphocytes % (Auto) 15 % (10-50); Mean Corpuscular HGB Conc 32.9 g/dl (31.0-37.0); Mean Corpuscular Hemoglobin 29.2 pg (25.0-35.0); Mean Corpuscular Volume 89 fL (80-100); Monocytes % (Auto) 9 % (0-12); Neutrophils # (Auto) 8.9 Thou/mm3 (1.8-7.7); Neutrophils % (Auto) 74 % (37-80); Nucleated Red Blood Cell # 0.02 Thou/mm3 (0.00-0.00); Nucleated Red Blood Cell % 0 /100 WBC (0); Platelet Count 407 Thou/mm3 (140-440); RDW Standard Deviation 57.1 fL (36.4-46.3); Red Blood Count 2.64 Miln/mm3 (4.00-5.20)
[2024-12-27 09:21] LABS: Hemoglobin 7.7 g/dL (12.0-16.0)
[2024-12-27] MEDS: METOPROLOL SUCCINATE XL 25 MG TABCR PO (09:23)
[2024-12-27] MEDS: SENNA TABLET 1 TAB PO (09:23)
[2024-12-27] MEDS: PANTOPRAZOLE INJ 40 MG VIAL IVP (09:24)
[2024-12-27] MEDS: HEPARIN SOD INJ 5000 UNIT/ML VIAL SC ×2 (09:40→20:32)
[2024-12-27 09:44] LABS: Sed Rate (ESR) 70 mm/hr (0-30)
--- NOTE | 2024-12-27 11:21 | PD.RESPRO ---
Documentation for date of: 12/27/24 Subjective Subjective Interval history: Patient seen and examined in the AM. Patient seemed improved mental status today. Family was able to redirect her. Patient denies any chest pain. Currently on HFNC. On PD dialysis. Exam Vital Signs Temp Pulse Resp BP Pulse Ox O2 Del Method O2 Flow Rate 97.0 F 89 24 H 152/89 H 100 High Flow Nasal Cannula 35 12/27/24 10:00 12/27/24 11:18 12/27/24 11:18 12/27/24 09:23 12/27/24 11:18 12/27/24 08:00 12/27/24 11:18 FiO2 25 12/27/24 11:18 Narrative Exam General: AOx3, moderate respiratory distress, speaks in 2-3 word sentences HEENT: NC/AT, mucous membranes moist Cardiovascular: irregular rhythm,,4/6 ESM in aortic area raditing to carotids, PSM mitral area. Pulmonary: on HFNC, mild respiratory distress, crackles auscultated bilaterally, speaks in short sentences, accessory muscle use noted Abdominal: soft, non-tender, non-distended, no rebound/guarding, normal bowel sounds present Musculoskeletal: 3+ pitting bilateral lower extremity edema Skin: warm and dry, intact, no rashes Neuro: CN II-XII intact, no focal deficits Objective Labs 12/28/24 05:56 12/28/24 05:56 Labs: Laboratory Results - last 24 hr 12/26/24 12/26/24 12/26/24 15:55 18:19 19:43 WBC 13.5 H RBC 2.74 L Hgb 8.1 L Hct 24.0 L MCV 88 MCH 29.6 MCHC 33.8 RDW Std Deviation 57.9 H Plt Count 425 D Neut % (Auto) 78 Lymph % (Auto) 11 [place] % (Auto) 10 Eos % (Auto) 1 Baso % (Auto) 0 Neut # (Auto) 10.5 H Lymph # (Auto) 1.4 [place] # (Auto) 1.4 H Eos # (Auto) 0.1 Baso # (Auto) 0.0 Immature Gran # (Auto) 0.10 H Absolute Nucleated RBC 0.00 Immature Gran % 1 H Nucleated RBC % 0 ESR PT 11.8 INR 1.1 APTT 25.7 Puncture Site Right Radial ABG pH 7.46 H ABG pCO2 43 ABG pO2 84 ABG HCO3 30 H ABG O2 Saturation 98 ABG Base Excess 5 H VBG pH 7.48 VBG pCO2 39 VBG pO2 98 H VBG O2 Sat (Tammie) 99 H VBG Base Excess 5 H FiO2 30 Sodium 136 Potassium 3.8 D Chloride 98 Carbon Dioxide 26.0 Anion Gap 12 BUN 42 H Creatinine 5.4 H* Estim Creat Clear Calc 5.7 L eGFR 7 L* BUN/Creatinine Ratio 8 L Glucose 116 H D Calculated Osmolality 283 Lactic Acid 1.9 Calcium 8.8 Corrected Calcium 9.3 Phosphorus Magnesium Total Bilirubin 0.3 AST 60 H ALT 30 Alkaline Phosphatase 86 C-Reactive Prot, Quant Total Protein 6.1 Albumin 3.4 D Globulin 2.7 Albumin/Globulin Ratio 1.3 Procalcitonin 0.60 H TSH Free T4 Peritoneal Color Colorless Peritoneal Appearance Clear Peritoneal WBC 3 Peritoneal RBC 3 Periton Polynucl WBCs 25 Periton Mononucl WBCs 75 Random Vancomycin 12/27/24 12/27/24 12/27/24 05:00 05:55 08:50 WBC 12.0 H RBC 2.64 L Hgb 7.7 L Hct 23.4 L MCV 89 MCH 29.2 MCHC 32.9 RDW Std Deviation 57.1 H Plt Count 407 Neut % (Auto) 74 Lymph % (Auto) 15 [place] % (Auto) 9 Eos % (Auto) 2 Baso % (Auto) 0 Neut # (Auto) 8.9 H Lymph # (Auto) 1.8 [place] # (Auto) 1.0 H Eos # (Auto) 0.2 Baso # (Auto) 0.0 Immature Gran # (Auto) 0.06 H Absolute Nucleated RBC 0.02 H Immature Gran % 1 H Nucleated RBC % 0 ESR 70 H PT 12.2 INR 1.1 APTT Puncture Site Right Radial ABG pH 7.43 ABG pCO2 46 ABG pO2 83 ABG HCO3 30 H ABG O2 Saturation 98 ABG Base Excess 6 H VBG pH VBG pCO2 VBG pO2 VBG O2 Sat (Tammie) VBG Base Excess FiO2 28 Sodium 140 Potassium 4.2 Chloride 100 Carbon Dioxide 25.9 Anion Gap 14 BUN 41 H Creatinine 5.4 H* Estim Creat Clear Calc 5.6 L eGFR 7 L* BUN/Creatinine Ratio 8 L Glucose 98 Calculated Osmolality 289 Lactic Acid Calcium 8.4 Corrected Calcium 9.1 Phosphorus 3.6 Magnesium 1.6 Total Bilirubin 0.4 AST 46 H ALT 25 Alkaline Phosphatase 81 C-Reactive Prot, Quant 3.6 H Total Protein 5.6 L Albumin 3.1 L Globulin 2.5 Albumin/Globulin Ratio 1.2 Procalcitonin TSH 0.35 L Free T4 1.57 Peritoneal Color Peritoneal Appearance Peritoneal WBC Peritoneal RBC Periton Polynucl WBCs Periton Mononucl WBCs Random Vancomycin 19.8 ABG Interpretation ABG results: 12/26/24 12/26/24 12/26/24 08:44 15:55 18:19 ABG pH 7.42 7.46 H ABG pCO2 44 43 ABG pO2 80 L 84 ABG HCO3 29 H 30 H ABG O2 Saturation 97 98 ABG Base Excess 4 H 5 H VBG pH 7.48 VBG pCO2 39 VBG pO2 98 H VBG Base Excess 5 H 12/27/24 05:00 ABG pH 7.43 ABG pCO2 46 ABG pO2 83 ABG HCO3 30 H ABG O2 Saturation 98 ABG Base Excess 6 H VBG pH VBG pCO2 VBG pO2 VBG Base Excess Quality Measures Quality Measures none Advance care planning discussed with:: patient and child Assessment & Plan Assessment Current Active Medications: Generic Name Dose Route Start Last Admin Trade Name Freq PRN Reason Stop Dose Admin Acetaminophen 650 mg 12/24/24 14:41 12/27/24 04:36 Acetaminophen 325 Mg Tablet PO 01/23/25 14:40 650 mg Q6H PRN Administration Pain (1-3) & Fever >100.3 Budesonide 0.5 mg 12/24/24 19:00 12/27/24 06:49 Budesonide Rt 0.5 Mg/2 Ml Nebu INH 01/23/25 18:59 0.5 mg BIDRT SABRINA Administration Heparin Sodium (Porcine) 5,000 unit 12/27/24 09:00 12/27/24 09:40 Heparin Sod Inj 5000 Unit/Ml Vial SC 01/10/25 08:59 5,000 unit Q12HR SABRINA Administration Fluconazole 200 mg in 100 mls @ 100 mls/hr 12/27/24 14:00 Diflucan/Ns Ivpb IV 01/03/25 13:59 QDAY@1400 SABRINA Piperacillin/Tazobactam/Dextrose 2.25 gm in 50 mls @ 12.5 mls/hr 12/26/24 22:00 12/27/24 05:03 Zosyn IV 01/02/25 21:59 12.5 mls/hr Q8HR SABRINA Administration Levalbuterol HCl 0.31 mg 12/26/24 04:19 12/27/24 11:18 Levalbuterol Rt 0.31 Mg/3 Ml Nebu INH 01/25/25 04:18 0.31 mg Q4HR PRN Administration WHEEZING Melatonin 3 mg 12/26/24 18:00 12/26/24 21:03 Melatonin 3 Mg Tablet PO 01/25/25 17:59 3 mg HS SABRINA Administration Metoprolol Succinate 25 mg 12/24/24 18:30 12/27/24 09:23 Metoprolol Succinate Xl 25 Mg Tabcr PO 01/23/25 18:29 25 mg QDAY SABRINA Administration Ondansetron HCl 4 mg 12/24/24 14:41 12/26/24 03:58 Ondansetron Inj 2 Mg/Ml Inj 2 Ml IV 01/23/25 14:40 4 mg Q6H PRN Administration NAUSEA OR VOMITING Protocol Pantoprazole Sodium 40 mg 12/27/24 09:00 12/27/24 09:24 Pantoprazole Inj 40 Mg Vial IVP 01/26/25 08:59 40 mg DAILY SABRINA Administration Pharmacy Consult 1 each 12/26/24 17:30 Vancomycin Pharmacy To Dose 1 Each Each IV 01/25/25 17:29 QDAY PRN PROTOCOL Promethazine HCl 25 mg 12/26/24 13:17 Promethazine Hcl 25 Mg Tablet PO 01/25/25 13:16 HS PRN Insomia Sennosides 1 tab 12/24/24 21:00 12/27/24 09:23 Senna Tablet PO 01/23/25 20:59 1 tab BID SABRINA Administration Protocol Sodium Chloride 3 ml 12/24/24 22:40 12/26/24 08:09 Sodium Chloride Rt Annika 0.9% 3 Ml Nebu INH 01/23/25 22:39 3 ml PRN PRN Administration SOLN Plan Tho Lee is an 84-year-old female with a past medical history of Antonia's granulomatosis diagnosed 25 years ago, 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 Cardiology consulted due to history of aortic stenosis, new onset afib, and CHF exacerbation. #? MAT vs new onset atrial fibrillation with RVR vs frequent PACs Patient presents with shortness of breath and found to have abnormal EKG that showed irregular, sinus rhythm with multiple PACs, incomplete RBBB, and QTc 523. EKG also showing multiple different P wave morphologies. Of note, patient has moderately dilated LA as seen on echo on 11/30/2024 in setting of moderate-severe aortic stenosis. Thus, with multiple P wave morphologies, likely patient has MAT rather than new onset atrial fibrillation with RVR. Additionally, K noted to be low at 3.1 and hemoglobin also low at 6.6 that may be contributing/aggravating factors. [id number] score of 7 and HAS-BLED score of 5. Given recent history of blood-tinged emesis as well as hemoglobin of 6.6, recommend to hold off on AC if A-fib. Of note, patient noted to have home Rx of clopidogrel 75 mg, recommend to hold as well. ? Recommend metoprolol succinate 25 mg daily ? Outpatient work up for TAVR once the patient is more stable #Acute diastolic CHF exacerbation #History of HFpEF (EF 55-60% 11/2024) #NSTEMI type II/demand ischemia #Pulmonary hypertension, mild to moderate In addition to shortness of breath patient also endorses orthopnea, PND, and bilateral lower extremity edema. BNP 1691 and troponin peaked at 0.144. Suspect demand ischemia secondary to acute CHF exacerbation in addition to history of moderate-severe aortic stenosis and low intravascular volume (acute on chronic anemia with initial hemoglobin of 6.6), leading to decreased tissue oxygenation/perfusion. ? Given that patient is anuric, will not be able to diurese and Sette will have to remove fluid via peritoneal dialysis ? Nephrology following, appreciate recommendations ? Strict I's and O's ? Fluid restrictions ? Daily weights - highly recommend to place patient in HD dialysis. #Acute on chronic normocytic anemia Has baseline anemia with hemoglobin of 8.5-9.0, but presents with hemoglobin 6.6. Was noted to be on eliquis 2.5 mg PO BID for post-surgical DVT prophylaxis as well as home rx of clopidogrel. Apparently, patient also had blood-tinged emesis but denies melena and hematochezia. Recommend full anemia work-up and transfusion of total of 2 units pRBC. #Moderate-severe aortic stenosis #Moderate-severe mitral regurgitation Echo on 11/30/2024: Normal LV size and function. EF 55-60%. Diastolic dysfunction present but cannot be graded. Normal RV size and function. Estimated RVSP moderately elevated RVSP 55 mmHg. Moderate-severe . AV Vmax 3.8 m/s, mean PG 38 mmHg. LATRICE 0.5 cm^2. Severe posterior MAC and moderate anterior MAC with mild mitral stenosis. Mean PG 5 mmHg. Moderate-severe MR. Moderate TR and mild to moderate AI. Moderately dilated LA and mildly dilated RA. ? Follow-up outpatient for further TAVR evaluation #Hyperlipidemia Lipid panel from previous admission: cholesterol 138, LDL 83, HDL 43, triglycerides 58 ? Continue home dose atorvastatin 40 mg daily #Hypertension Patient on metoprolol tartrate at home for blood pressure management ? Recommend metoprolol succinate 25 mg daily as above #Right hip fracture, s/p FNS on 12/01 #Right shoulder fracture, s/p CRIF on 12/01 #ESRD on PD #Antonia's granulomatosis #GERD #Gastritis #History of CVA #Asthma #Osteoarthritis ? Management of above conditions per primary team and other consultants ----- - Patient's care was discussed with my attending physician, Dr. Matt Osborne MD Internal Medicine PGY-3 Attending Provider Attestation/Addendum I have personally seen and examined the patient separately on the above date of service and discussed the plan of care with the resident. I reviewed the resident Mik Jules consultation progress note and agree with the resident findings and plan in the note above and have also edited the documentation to reflect my findings and plan. Mrs. 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 Patient was recently discharged from the hospital after recent fall status post right femur fracture and repair in November 2024. During this admission patient was diagnosed with moderate to severe moderate to severe MR and mild MS on diastolic dysfunction by the echo. Patient was discharged home with home PT and also on Eliquis 2.5 mg twice daily for anticoagulation for DVT prophylaxis. Patient apparently developed some streaks of blood in the cough and the Eliquis was stopped. Patient continued to have worsening shortness of breath since the time of discharge and only progressed to the level that now she has orthopnea PND as well as significant shortness of breath at rest. Patient not able to speak in full sentences. On examination patient also does have at least 2+ edema more on the dependent areas. Denies any Fever or chills or cough or sputum production. Denies any chest pain chest pressure or palpitations or dizziness or syncope or fall. Has not been ambulating much since her discharge. Initial EKG showed atrial fibrillation with RVR at around 131 bpm. Review of the telemetry now shows normal sinus rhythm with frequent PACs. Chest CTA was performed which showed significant vascular congestion along with septal pulmonary edema and no evidence of any PE and 8 mm, 12 known pulmonary nodules. Chest x-ray showed recent subacute fracture of the right humerus. Labs showed severe anemia with hemoglobin of 6.6 and platelets of 486 and WBC of 10.5 INR was 1.1. Sodium 137, potassium was 3.0 and chloride of 96 and BUN of 61 creatinine of 6.6 initial troponin was 0.144 and repeat was 0.139. BNP was 1691 and previous was only in the 300s LFTs were normal albumin was low at 3.2. Blood pressure was elevated on arrival at around 150-160 mmHg. Heart rate was 131 and now better controlled around 96 bpm. She is tachypneic around 25 to 30/min and saturations are 96% on 2 L oxygen via nasal cannula Assessment and plan: 1. Shortness of breath with orthopnea and PND - multifactorial mostly secondary to fluid overload from inadequate dialysis as well as moderate severe aortic stenosis, MR and severe anemia at 6.6 with component of pulmonary hypertension 2. End-stage renal disease on peritoneal dialysis secondary to Antonia's granulomatosis for the past 4 years 3. Moderate to severe carotid stenosis but valve area less than 1 cm? 4. Moderate to severe MR 5. Antonia's granulomatosis diagnosed 25 years ago 6. History of CVA or stroke 15 years ago with residual right hemiparesis 7. Diastolic congestive heart failure 8. Essential hypertension 9. Recent fall status post right femur fracture and repair, right humeral fracture with conservative treatment 10. Pulmonary hypertension-mild to moderate 11. hyperlipidemia 12. Chronic asthma on inhalers, chronic anemia osteoarthritis, osteoporosis, GERD Patient presented with acute hypoxic respiratory failure mostly secondary to fluid overload which is multifactorial secondary to inadequate dialysis from the peritoneal dialysis, moderate to severe aortic stenosis, moderate to severe MR, severe anemia with hemoglobin of 6.6 as well as a component of mild to moderate PAH. Recommend to transfuse 2 units of PRBC first unit now and second unit after the dialysis session. Urgent peritoneal dialysis as patient cannot be transitioned to hemodialysis catheter is no tunnel dialysis catheter could be placed today. Nephrology consulted by primary team. Recommend daily dialysis for the next couple of days as patient is fluid overloaded with a BNP elevated 6091 and previously was in the 300s. CTA was negative for PE and also any kind of pneumonia. Also recommended she had complete anemia workup from the labs sent earlier this morning and not the labs after the transfusion. Recommend to give iron transfusions if the patient has low or iron deficiency anemia. Patient presented with tachycardia and questionable atrial fibrillation. Patient does show significant P waves and patient possibly has multifocal atrial tachycardia versus atrial fibrillation but now already in the telemetry patient is in normal sinus rhythm with only PACs. Recommend only beta-pratik metoprolol XL 25 mg for now and hold off on anticoagulation given the severe anemia and also recent blood-tinged hemoptysis versus emesis. Will restart anticoagulation at a later date if atrial fibrillation is confirmed. Continue to monitor telemetry. Keep potassium between 4-5 and magnesium greater than 2.0 at all times. Her most recent echo as noted below and has moderate to severe aortic stenosis with a V-max of 3.8 m/s and mean PG of 38 mmHg and aortic valve area of 0.5 cm?, moderate to severe MR, mild mitral stenosis with mean PG of 5 mmHg, moderate TR as well as diastolic dysfunction. Patient needs to continue to workup further at SAVR versus TAVR as outpatient For which she was scheduled to see me in the office next week but will await for her to recover from the recent fall and the hip fracture s/p repair. Will expect the MR to improve after the aortic valve replacement for but overall given her age and dialysis and it is not ideal to do any repair for her mitral valve regurgitation or the mild MS. 12/27/2024: Patient was seen and examined at the bedside. Respiratory status appears to be better today but still is significantly short of breath. Overall on examination today patient appears to be not significantly fluid overloaded. She received total of up to 25 hours of peritoneal dialysis since admission. Peritoneal fluid cell count performed and there was no evidence of any elevated WBC and nephrology recommended to continue peritoneal dialysis as family has reservations regarding hemodialysis as her from complications with the hemodialysis. Still continues to have some abdominal pain. Patient oxygen requirement still continues to be high but this could be a secondary to have severe anxiety to her ABG did not show any significant hypercapnic respiratory acidosis. Will probably benefit from BiPAP given her increased work of breathing but patient unable to tolerate the same. On high flow oxygen. Will need further medications for what appears to be severe anxiety. Overall rest of the labs and vitals appear to be stable at baseline. Beta-pratik started for MAT and frequent PACs as blood pressure is permissible. Will need to reconsider beta-pratik usage for this patient as she may have underlying asthma can change to low-dose Cardizem. Discussed with the family at bedside in detail and she will need to follow-up patient to continue the TAVR workup. Management of rest of the medical conditions as per primary team and other consultants. Thank you for the consult and allowing me to participate in the care of the patient. Cardiology will continue to follow. Jori Olivares M.D. Interventional Cardiology
--- NOTE | 2024-12-27 11:23 | XR_ITS ---
Examination: AP chest single view Technique one AP portable upright chest single view Exam date and time: December 27, 2024 1145 hours INDICATIONS: Shortness of breath beginning one month ago. FINDINGS: Mild enlargement cardiac contour Moderate vascular congestion. No lobar pneumonia Prominent osteopenia IMPRESSION: Moderate vascular congestion
--- NOTE | 2024-12-27 11:47 | PC.SS ---
Follow up note: Pt is new peritoneal dialysis with Dr. Coley. On IV antibiotic. SS received call from Charleen from [facility] who is requesting inquiry be sent. Pt will return home upon dc.
[2024-12-27 12:15] LABS: Base Excess, Venous 3 (-3-3); O2 Saturation, Venous 98 % (96-97); PCO2, Venous 41 mmHg (36-56); PO2, Venous 89 mmHg (15-58); pH, Venous 7.43 (7.33-7.66)
[2024-12-27] MEDS: hydrOXYzine HCL 25 MG TABLET PO (12:44)
[2024-12-27] MEDS: FLUCONAZOLE/NS 200 MG IVPB 200 MG/100 ML BAG 100 MG IV (14:10)
--- NOTE | 2024-12-27 16:31 | PC.PT ---
PT approached patient at 1530. Noted to have (+) Dyspnea. This PT informed son-in-law at bedside that it will be best to check patient again tomorrow to initiate PT evaluation as patient is not stable to do PT today. He verbalized understanding.
--- NOTE | 2024-12-27 17:40 | ESPR_ITS ---
<Statement entered by Kem Seay MD - 12/28/24 14:28> I discussed with and supervised the engineer intern physician involved in the care of this patient. Patient assessment and plan was discussed with entire medicine team, including my attending. I agree with the assessment and plan as documented by engineer intern doctor. Patient care was discussed with my attending physician Dr. Jona Seay, PGY-2 Documentation for date of: 12/27/24 Subjective Subjective Interval history: Patient seen and examined at bedside, continues to have increased work of breathing. Patient scheduled for peritoneal dialysis again today, pending cultures, will continue IV antibiotics, ordered CT abdomen pelvis Patient was titrated off high flow nasal cannula, breathing improved. Later rapid response called for the patient in the morning for increased work of breathing, patient started back on high flow nasal cannula, ordered VBG which was normal, chest x-ray ordered showed improvement compared to the previous ones, moderate vascular congestion noted on chest x-ray. Patient started on hydroxyzine 25 twice daily for possible underlying anxiety, patient has severe shortness of breath when she receives peritoneal dialysis, will follow-up with [employer] regarding decreasing the volume of fluid per cycle. Will continue to monitor patient. Exam Vital Signs Temp Pulse Resp BP Pulse Ox O2 Del Method O2 Flow Rate 97.2 F 75 16 145/91 H 100 High Flow Nasal Cannula 30 12/27/24 12:00 12/27/24 15:12 12/27/24 15:12 12/27/24 12:00 12/27/24 15:12 12/27/24 12:00 12/27/24 15:12 FiO2 25 12/27/24 15:12 Narrative Exam General: AOx3, moderate respiratory distress, speaks in 2-3 word sentences HEENT: NC/AT, mucous membranes moist Cardiovascular: irregular rhythm,,4/6 ESM in aortic area raditing to carotids, PSM mitral area. Pulmonary: on HFNC, mild respiratory distress, crackles auscultated bilaterally, speaks in short sentences, accessory muscle use noted Abdominal: soft, non-tender, non-distended, no rebound/guarding, normal bowel sounds present Musculoskeletal: 3+ pitting bilateral lower extremity edema Skin: warm and dry, intact, no rashes Neuro: CN II-XII intact, no focal deficits Objective Labs 12/28/24 05:56 12/28/24 05:56 Labs: Laboratory Results - last 24 hr 12/24/24 12/26/24 12/26/24 12:00 18:19 19:43 WBC 13.5 H RBC 2.74 L Hgb 8.1 L Hct 24.0 L MCV 88 MCH 29.6 MCHC 33.8 RDW Std Deviation 57.9 H Plt Count 425 D Neut % (Auto) 78 Lymph % (Auto) 11 Tripp % (Auto) 10 Eos % (Auto) 1 Baso % (Auto) 0 Neut # (Auto) 10.5 H Lymph # (Auto) 1.4 Tripp # (Auto) 1.4 H Eos # (Auto) 0.1 Baso # (Auto) 0.0 Immature Gran # (Auto) 0.10 H Absolute Nucleated RBC 0.00 Immature Gran % 1 H Nucleated RBC % 0 ESR PT 11.8 INR 1.1 APTT 25.7 Puncture Site ABG pH ABG pCO2 ABG pO2 ABG HCO3 ABG O2 Saturation ABG Base Excess VBG pH 7.48 VBG pCO2 39 VBG pO2 98 H VBG O2 Sat (Tammie) 99 H VBG Base Excess 5 H FiO2 Sodium 136 Potassium 3.8 D Chloride 98 Carbon Dioxide 26.0 Anion Gap 12 BUN 42 H Creatinine 5.4 H* Estim Creat Clear Calc 5.7 L eGFR 7 L* BUN/Creatinine Ratio 8 L Glucose 116 H D Calculated Osmolality 283 Lactic Acid 1.9 Calcium 8.8 Corrected Calcium 9.3 Phosphorus Magnesium Total Bilirubin 0.3 AST 60 H ALT 30 Alkaline Phosphatase 86 C-Reactive Prot, Quant Total Protein 6.1 Albumin 3.4 D Globulin 2.7 Albumin/Globulin Ratio 1.3 Procalcitonin 0.60 H TSH Free T4 Peritoneal Color Colorless Peritoneal Appearance Clear Peritoneal WBC 3 Peritoneal RBC 3 Periton Polynucl WBCs 25 Periton Mononucl WBCs 75 Random Vancomycin Crossmatch See Detail 12/27/24 12/27/24 12/27/24 05:00 05:55 08:50 WBC 12.0 H RBC 2.64 L Hgb 7.7 L Hct 23.4 L MCV 89 MCH 29.2 MCHC 32.9 RDW Std Deviation 57.1 H Plt Count 407 Neut % (Auto) 74 Lymph % (Auto) 15 Tripp % (Auto) 9 Eos % (Auto) 2 Baso % (Auto) 0 Neut # (Auto) 8.9 H Lymph # (Auto) 1.8 Tripp # (Auto) 1.0 H Eos # (Auto) 0.2 Baso # (Auto) 0.0 Immature Gran # (Auto) 0.06 H Absolute Nucleated RBC 0.02 H Immature Gran % 1 H Nucleated RBC % 0 ESR 70 H PT 12.2 INR 1.1 APTT Puncture Site Right Radial ABG pH 7.43 ABG pCO2 46 ABG pO2 83 ABG HCO3 30 H ABG O2 Saturation 98 ABG Base Excess 6 H VBG pH VBG pCO2 VBG pO2 VBG O2 Sat (Tammie) VBG Base Excess FiO2 28 Sodium 140 Potassium 4.2 Chloride 100 Carbon Dioxide 25.9 Anion Gap 14 BUN 41 H Creatinine 5.4 H* Estim Creat Clear Calc 5.6 L eGFR 7 L* BUN/Creatinine Ratio 8 L Glucose 98 Calculated Osmolality 289 Lactic Acid Calcium 8.4 Corrected Calcium 9.1 Phosphorus 3.6 Magnesium 1.6 Total Bilirubin 0.4 AST 46 H ALT 25 Alkaline Phosphatase 81 C-Reactive Prot, Quant 3.6 H Total Protein 5.6 L Albumin 3.1 L Globulin 2.5 Albumin/Globulin Ratio 1.2 Procalcitonin TSH 0.35 L Free T4 1.57 Peritoneal Color Peritoneal Appearance Peritoneal WBC Peritoneal RBC Periton Polynucl WBCs Periton Mononucl WBCs Random Vancomycin 19.8 Crossmatch 12/27/24 12:03 WBC RBC Hgb Hct MCV MCH MCHC RDW Std Deviation Plt Count Neut % (Auto) Lymph % (Auto) Tripp % (Auto) Eos % (Auto) Baso % (Auto) Neut # (Auto) Lymph # (Auto) Tripp # (Auto) Eos # (Auto) Baso # (Auto) Immature Gran # (Auto) Absolute Nucleated RBC Immature Gran % Nucleated RBC % ESR PT INR APTT Puncture Site ABG pH ABG pCO2 ABG pO2 ABG HCO3 ABG O2 Saturation ABG Base Excess VBG pH 7.43 VBG pCO2 41 VBG pO2 89 H VBG O2 Sat (Tammie) 98 H VBG Base Excess 3 FiO2 Sodium Potassium Chloride Carbon Dioxide Anion Gap BUN Creatinine Estim Creat Clear Calc eGFR BUN/Creatinine Ratio Glucose Calculated Osmolality Lactic Acid Calcium Corrected Calcium Phosphorus Magnesium Total Bilirubin AST ALT Alkaline Phosphatase C-Reactive Prot, Quant Total Protein Albumin Globulin Albumin/Globulin Ratio Procalcitonin TSH Free T4 Peritoneal Color Peritoneal Appearance Peritoneal WBC Peritoneal RBC Periton Polynucl WBCs Periton Mononucl WBCs Random Vancomycin Crossmatch ABG Interpretation ABG results: 12/26/24 12/26/24 12/26/24 08:44 15:55 18:19 ABG pH 7.42 7.46 H ABG pCO2 44 43 ABG pO2 80 L 84 ABG HCO3 29 H 30 H ABG O2 Saturation 97 98 ABG Base Excess 4 H 5 H VBG pH 7.48 VBG pCO2 39 VBG pO2 98 H VBG Base Excess 5 H 12/27/24 12/27/24 05:00 12:03 ABG pH 7.43 ABG pCO2 46 ABG pO2 83 ABG HCO3 30 H ABG O2 Saturation 98 ABG Base Excess 6 H VBG pH 7.43 VBG pCO2 41 VBG pO2 89 H VBG Base Excess 3 Quality Measures Quality Measures none Advance care planning discussed with:: patient Assessment & Plan Assessment Current Active Medications: Generic Name Dose Route Start Last Admin Trade Name Freq PRN Reason Stop Dose Admin Acetaminophen 650 mg 12/24/24 14:41 12/27/24 16:33 Acetaminophen 325 Mg Tablet PO 01/23/25 14:40 650 mg Q6H PRN Administration Pain (1-3) & Fever >100.3 Budesonide 0.5 mg 12/24/24 19:00 12/27/24 06:49 Budesonide Rt 0.5 Mg/2 Ml Nebu INH 01/23/25 18:59 0.5 mg BIDRT SABRINA Administration Heparin Sodium (Porcine) 5,000 unit 12/27/24 09:00 12/27/24 09:40 Heparin Sod Inj 5000 Unit/Ml Vial SC 01/10/25 08:59 5,000 unit Q12HR SABRINA Administration Fluconazole 200 mg in 100 mls @ 100 mls/hr 12/27/24 14:00 12/27/24 14:10 Diflucan/Ns Ivpb IV 01/03/25 13:59 100 mls/hr QDAY@1400 SABRINA Administration Piperacillin/Tazobactam/Dextrose 2.25 gm in 50 mls @ 12.5 mls/hr 12/26/24 22:00 12/27/24 14:10 Zosyn IV 01/02/25 21:59 12.5 mls/hr Q8HR SABRINA Administration Levalbuterol HCl 0.31 mg 12/26/24 04:19 12/27/24 15:08 Levalbuterol Rt 0.31 Mg/3 Ml Nebu INH 01/25/25 04:18 0.31 mg Q4HR PRN Administration WHEEZING Melatonin 3 mg 12/26/24 18:00 12/26/24 21:03 Melatonin 3 Mg Tablet PO 01/25/25 17:59 3 mg HS SABRINA Administration Metoprolol Succinate 25 mg 12/24/24 18:30 12/27/24 09:23 Metoprolol Succinate Xl 25 Mg Tabcr PO 01/23/25 18:29 25 mg QDAY SABRINA Administration Ondansetron HCl 4 mg 12/24/24 14:41 12/26/24 03:58 Ondansetron Inj 2 Mg/Ml Inj 2 Ml IV 01/23/25 14:40 4 mg Q6H PRN Administration NAUSEA OR VOMITING Protocol Pantoprazole Sodium 40 mg 12/27/24 09:00 12/27/24 09:24 Pantoprazole Inj 40 Mg Vial IVP 01/26/25 08:59 40 mg DAILY SABRINA Administration Pharmacy Consult 1 each 12/26/24 17:30 Vancomycin Pharmacy To Dose 1 Each Each IV 01/25/25 17:29 QDAY PRN PROTOCOL Promethazine HCl 25 mg 12/26/24 13:17 Promethazine Hcl 25 Mg Tablet PO 01/25/25 13:16 HS PRN Insomia Sennosides 1 tab 12/24/24 21:00 12/27/24 09:23 Senna Tablet PO 01/23/25 20:59 1 tab BID SABRINA Administration Protocol Sodium Chloride 3 ml 12/24/24 22:40 12/26/24 08:09 Sodium Chloride Rt Annika 0.9% 3 Ml Nebu INH 01/23/25 22:39 3 ml PRN PRN Administration SOLN Plan Assessment and plan: Summary: Mr. 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 Patient admitted to the hospital for fluid overload, CHF exacerbation management. 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 On presentation was satting well on room air, eventually needed supplemental oxygen to maintain saturation more than 92, BNP on presentation 1691, CTA negative for PE chest x-ray showed mild CHF. Bilateral crackles heard on physical exam, 3+ bilateral lower extremity pitting edema. Echocardiogram on 11/30/2024: Normal LV size and function. EF 55-60%. Diastolic dysfunction present but cannot be graded. Normal RV size and function. Estimated RVSP moderately elevated RVSP 55 mmHg. Moderate-severe . AV Vmax 3.8 m/s, mean PG 38 mmHg. LATRICE 0.5 cm^2. Severe posterior MAC and moderate anterior MAC with mild mitral stenosis. Mean PG 5 mmHg. Moderate-severe MR. Moderate TR and mild to moderate AI. Moderately dilated LA and mildly dilated RA. Patient has had about 4 L removed net throughout hospitalization per nephrology. There is suspicion of ultrafiltration failure. Plan: - Nephrology consulted, continue peritoneal dialysis per nephrology. - Strict intake and output - Fluid restriction - Monitor daily weights - Cardiology consulted, appreciate recommendations - Patient has some insomnia, anxiety started on melatonin 3 mg at 6 PM - Hydroxyzine twice daily # Sepsis, SIRS +3/4, #? Peritonitis Patient noted to be tachycardic, tachypneic and does have an elevated WBC count of 17.2 today, no fevers noted patient does have worsening mentation compared to yesterday, later in the evening patient did complain of abdominal pain as well. Cell count from 8 on annual dialysis negative, pending cultures Follow cultures - Continue IV antibiotics and antifungal - Tylenol as needed for pain #Acute on chronic normocytic normochromic anemia Multifactorial reason, does have CKD, transfused 1 unit PRBC in ED Iron 47, TIBC 295, iron sat 20%, unsaturated iron binding 178, LDH 453, vitamin B12 347, folate 10.05 Reticulocyte count 4.1%, absolute reticulocyte 132.2, immature reticulocyte fraction 44.7 PBS shows severe normocytic normochromic anemia with anisocytosis. Mild thrombocytosis, unremarkable granulocytes. Pathology recommends ruling out acute/subacute bleed. Plan: - Follow fecal occult blood - Hold 1 unit PRBC, will transfuse if hemoglobin around 8 #? MAT vs new onset atrial fibrillation with RVR vs frequent PACs Patient presents with shortness of breath and found to have abnormal EKG that showed irregular, sinus rhythm with multiple PACs, incomplete RBBB, and QTc 523. EKG also showing multiple different P wave morphologies. Of note, patient has moderately dilated LA as seen on echo on 11/30/2024 in setting of moderate-severe aortic stenosis. Thus, with multiple P wave morphologies, likely patient has MAT rather than new onset atrial fibrillation with RVR. Additionally, K noted to be low at 3.1 and hemoglobin also low at 6.6 that may be contributing/aggravating factors. [id number] score of 7 and HAS-BLED score of 5. Given recent history of blood- tinged emesis as well as hemoglobin of 6.6, recommend to hold off on AC if A- fib. Of note, patient noted to have home Rx of clopidogrel 75 mg, recommend to hold as well. Plan: ? Continue metoprolol succinate 25 mg daily ? Telemetry monitoring #GERD #Gastritis #? GI bleed Patient did have an episode of hematemesis outpatient, 14 days postdischarge from hospital, was switched from Eliquis to Plavix. Hemoglobin on presentation was 6.6, was transfused 1 unit PRBC. Patient on Tums 4 times a day at home CTA chest showed suspicious finding of free air under diaphragm, KUB unremarkable. - Continue Protonix 40 mg IV daily - Follow fecal occult blood test #Hyperlipidemia Lipid panel from previous admission: cholesterol 138, LDL 83, HDL 43, triglycerides 58 ? Continue home dose atorvastatin 40 mg daily #Hypertension Patient on metoprolol tartrate at home for blood pressure management ? Continue metoprolol succinate 25 mg daily #Asthma Longstanding history of asthma, uses inhalers at home - Pulmicort twice daily - Xopenex every 4 hours as needed #History of CVA Hold Plavix, suspicion of GI bleed #Right hip fracture, s/p FNS on 12/01 #Right shoulder fracture, s/p CRIF on 12/01 #Osteoarthritis Consulted physical therapy #Antonia's granulomatosis Stable currently, was on rituximab in the past Family requested workup, ordered ANCA screen, ESR CRP DVT prophylaxis: No DVT prophylaxis in setting of suspected GI bleed and anemia GI prophylaxis: IV Protonix daily Diet: Renal, food restriction 1500 cc Lines: Peripheral IV Code status: Full code Case discussed with Attending Dr. Tenorio and my senior Dr Seay PGY2 Misha Mcgowan PGY1 Attending Provider Attestation/Addendum 84-year-old female with end-stage renal disease on PD, severe aortic stenosis, history of Antonia's granulomatosis. The patient became anxious and short of breath during CAPD today. Rapid response was called. Patient got breathing treatment. Dr Coley was notified of her symptoms during CAPD. Discussed with housestaff.
[2024-12-27] MEDS: MELATONIN 3 MG TABLET PO (20:32)
[2024-12-27] MEDS: hydrOXYzine HCL 25 MG TABLET 50 MG PO (20:32)
[2024-12-28] VITALS (18 sets, daily range): BP systolic 121–164; BP diastolic 67–86; PULSE 66–85; RESP 17–100; TEMP 36.1–36.4; O2SAT 94–100; BMI 25.4; BMI 12.0
[2024-12-28] MEDS: LEVALBUTEROL RT 0.31 MG/3 ML NEBU INH ×4 (05:40→18:19)
[2024-12-28] MEDS: ACETAMINOPHEN 325 MG TABLET 650 MG PO (05:53)
[2024-12-28] MEDS: PIPER/TAZO 2.25 GM 2.25 GM/50 ML BAG IV ×3 (05:53→22:44)
[2024-12-28 06:11] LABS: Basophils % (Auto) 0 % (0-2.5); Eosinophils # (Auto) 0.3 Thou/mm3 (0.0-0.5); Eosinophils % (Auto) 2 % (0-10); Hematocrit 26.2 % (36.0-46.0); Immature Granulocytes % (Auto) 1 % (0-0); Lymphocytes # (Auto) 1.8 Thou/mm3 (1.0-4.8); Lymphocytes % (Auto) 15 % (10-50); Mean Corpuscular HGB Conc 31.7 g/dl (31.0-37.0); Mean Corpuscular Hemoglobin 29.6 pg (25.0-35.0); Mean Corpuscular Volume 94 fL (80-100); Monocytes # (Auto) 0.9 Thou/mm3 (0.0-0.8); Monocytes % (Auto) 8 % (0-12); Neutrophils # (Auto) 8.9 Thou/mm3 (1.8-7.7); Neutrophils % (Auto) 75 % (37-80); Nucleated Red Blood Cell # 0.02 Thou/mm3 (0.00-0.00); Nucleated Red Blood Cell % 0 /100 WBC (0); Platelet Count 374 Thou/mm3 (140-440); RDW Standard Deviation 59.7 fL (36.4-46.3)
[2024-12-28 06:12] LABS: Hemoglobin 8.3 g/dL (12.0-16.0)
[2024-12-28] MEDS: BUDESONIDE RT 0.5 MG/2 ML NEBU INH ×2 (06:39→18:20)
[2024-12-28 06:40] LABS: Alanine Aminotransferase 20 U/L (10-49); Albumin, Serum 3.3 gm/dL (3.4-4.8); Albumin/Globulin Ratio 1.2 (1.2-2.2); Alkaline Phosphatase 87 U/L (46-116); Anion Gap 11 (7-16); Aspartate Amino Transferase 32 U/L (0-34); BUN/Creatinine Ratio 8 Ratio (12-20); Bilirubin,Total 0.5 mg/dL (0.3-1.2); Blood Urea Nitrogen 46 mg/dL (9-23); Calcium 8.8 mg/dL (8.3-10.6); Calcium (Corrected) 9.4 mg/dL (8.5-10.1); Carbon Dioxide 27.3 mMol/L (20.0-31.0); Chloride 100 mMol/L (98-107); Creatinine (Component) 5.6 mg/dL (0.6-1.3); Estimated Creatinine Clearance 5.4 mL/min (>60); Globulin 2.7 gm/dL (2.3-3.5); Glucose 98 mg/dL (74-106); Magnesium 1.4 mg/dL (1.6-2.6); Osmolality,Calculated 287 (275-295); Phosphorous 3.9 mg/dL (2.4-5.1); Potassium 3.7 mMol/L (3.4-5.1); Sodium 138 mMol/L (136-145); Vancomycin,Random 15.8 mcg/mL; eGFR 7 See Note
--- NOTE | 2024-12-28 08:34 | PC.SS ---
SS has faxed and sent dialysis information using [facility] to [facility] Dialysis with Dr. Escalera
[2024-12-28] MEDS: METOPROLOL SUCCINATE XL 25 MG TABCR PO (09:01)
[2024-12-28] MEDS: SENNA TABLET 1 TAB PO (09:01)
[2024-12-28] MEDS: VANCOMYCIN/NS 750 MG IVPB 750 MG/150 ML BAG 120 MG IV (09:02)
[2024-12-28] MEDS: PANTOPRAZOLE INJ 40 MG VIAL IVP (09:02)
[2024-12-28] MEDS: HEPARIN SOD INJ 5000 UNIT/ML VIAL SC ×2 (09:02→20:56)
[2024-12-28] MEDS: Magnesium Sulfate 2 GM Ivpb 2 GM/50 ML BAG IV (10:24)
--- NOTE | 2024-12-28 11:07 | XR_ITS ---
Examination: CT chest, without intravenous contrast. CT abdomen, without intravenous contrast. CT pelvis, without intravenous contrast. 2-D sagittal and coronal reconstructions. 3-D reconstructions. Date and time of exam:December 28, [address] chest December 24, 2024 INDICATIONS: Sepsis alert today CTDI vol (mgy) 10 DLP ([id number] Technique: Multiple CT images, 3.0 mm slice thickness, obtained chest, abdomen, pelvis, with the high-resolution 64 slice scanner.. Sagittal and coronal 2-D reconstructions are obtained. 3-D reconstructions Low dose protocols were performed. One or more of the following dose reduction techniques were used; automated exposure control, adjustment of the mA and/or KV according to patient size, use of iterative reconstruction technique. Findings: Bilateral poorly defined thyroid nodules Thoracic aortic calcification no aneurysmal dilatation Pulmonary artery segments are not enlarged Prominent coronary artery calcification as well as mitral valvular calcification 6 mm pulmonary nodule right upper lobe image 55, 10 mm pulmonary nodule lingular segment Prominent vascular congestion with early septal edema throughout the lungs and small bilateral pleural effusions No visualized liver lesion Contracted gallbladder No pancreatic or adrenal mass Atrophic kidneys with significant renal scarring No hydronephrosis Heavy abdominal aortic calcification 20 mm fat-containing umbilical hernia Normal appendix No bowel obstruction Peritoneal dialysis catheter with free fluid in the pelvis Contracted urinary bladder, mild contrast in the urinary bladder Severe osteopenia IMPRESSION: Noncalcified pulmonary nodules as above, recommend follow-up Mild heart failure with early septal edema in the lungs Atrophic [place] kidneys with significant renal scarring No abdominal or pelvic abscess Peritoneal dialysis catheter satisfactory position
[2024-12-28 11:29] LABS: B-Type Natriuretic Peptide 1100 pg/mL (0-100)
[2024-12-28] MEDS: EPOETIN ALFA INJ 1,000 UNIT/0.05 ML UNIT 10000 UNIT SC (12:45)
--- NOTE | 2024-12-28 14:02 | ESPR_ITS ---
<Statement entered by Kem Seay MD - 12/28/24 18:36> I discussed with and supervised the quality intern physician involved in the care of this patient. Patient assessment and plan was discussed with entire medicine team, including my attending. I agree with the assessment and plan as documented by quality intern doctor. Patient care was discussed with my attending physician Dr. Jona Seay, PGY-2 Documentation for date of: 12/28/24 Subjective Subjective Interval history: Patient seen and examined at bedside. Patient scheduled for CT chest abdomen pelvis today. Patient working with physical therapy, has improved work of breathing, weaned off of high flow nasal cannula. Will continue inpatient peritoneal dialysis, nephrology following. Exam Vital Signs Temp Pulse Resp BP Pulse Ox O2 Del Method O2 Flow Rate 97.4 F 79 17 137/71 H 97 Room Air 3 12/28/24 12:00 12/28/24 12:00 12/28/24 12:00 12/28/24 12:00 12/28/24 12:00 12/28/24 12:00 12/28/24 08:00 FiO2 25 12/27/24 18:40 Narrative Exam General: AOx3, moderate respiratory distress, shortness of breath noted on talking. HEENT: NC/AT, mucous membranes moist Cardiovascular: irregular rhythm,,4/6 ESM in aortic area raditing to carotids, PSM mitral area. Pulmonary: on HFNC, mild respiratory distress, crackles auscultated bilaterally, speaks in short sentences, accessory muscle use noted Abdominal: soft, non-tender, non-distended, no rebound/guarding, normal bowel sounds present Musculoskeletal: 3+ pitting bilateral lower extremity edema Skin: warm and dry, intact, no rashes Neuro: CN II-XII intact, no focal deficits Objective Labs 12/28/24 05:56 12/28/24 05:56 Labs: Laboratory Results - last 24 hr 12/28/24 05:56 WBC 12.0 H RBC 2.80 L Hgb 8.3 L Hct 26.2 L MCV 94 MCH 29.6 MCHC 31.7 RDW Std Deviation 59.7 H Plt Count 374 D Neut % (Auto) 75 Lymph % (Auto) 15 [place] % (Auto) 8 Eos % (Auto) 2 Baso % (Auto) 0 Neut # (Auto) 8.9 H Lymph # (Auto) 1.8 [place] # (Auto) 0.9 H Eos # (Auto) 0.3 Baso # (Auto) 0.0 Immature Gran # (Auto) 0.10 H Absolute Nucleated RBC 0.02 H Immature Gran % 1 H Nucleated RBC % 0 Sodium 138 Potassium 3.7 D Chloride 100 Carbon Dioxide 27.3 Anion Gap 11 BUN 46 H Creatinine 5.6 H* Estim Creat Clear Calc 5.4 L eGFR 7 L* BUN/Creatinine Ratio 8 L Glucose 98 Calculated Osmolality 287 Calcium 8.8 Corrected Calcium 9.4 Phosphorus 3.9 Magnesium 1.4 L Total Bilirubin 0.5 AST 32 ALT 20 Alkaline Phosphatase 87 B-Natriuretic Peptide 1100 H* Total Protein 6.0 Albumin 3.3 L Globulin 2.7 Albumin/Globulin Ratio 1.2 Random Vancomycin 15.8 ABG Interpretation ABG results: 12/26/24 12/26/24 12/26/24 08:44 15:55 18:19 ABG pH 7.42 7.46 H ABG pCO2 44 43 ABG pO2 80 L 84 ABG HCO3 29 H 30 H ABG O2 Saturation 97 98 ABG Base Excess 4 H 5 H VBG pH 7.48 VBG pCO2 39 VBG pO2 98 H VBG Base Excess 5 H 12/27/24 12/27/24 05:00 12:03 ABG pH 7.43 ABG pCO2 46 ABG pO2 83 ABG HCO3 30 H ABG O2 Saturation 98 ABG Base Excess 6 H VBG pH 7.43 VBG pCO2 41 VBG pO2 89 H VBG Base Excess 3 Quality Measures Quality Measures none Advance care planning discussed with:: patient Assessment & Plan Assessment Current Active Medications: Generic Name Dose Route Start Last Admin Trade Name Freq PRN Reason Stop Dose Admin Acetaminophen 650 mg 12/24/24 14:41 12/28/24 05:53 Acetaminophen 325 Mg Tablet PO 01/23/25 14:40 650 mg Q6H PRN Administration Pain (1-3) & Fever >100.3 Budesonide 0.5 mg 12/24/24 19:00 12/28/24 06:39 Budesonide Rt 0.5 Mg/2 Ml Nebu INH 01/23/25 18:59 0.5 mg BIDRT SABRINA Administration Diltiazem HCl 30 mg 12/28/24 14:00 Diltiazem 30 Mg Tablet PO 01/27/25 13:59 TID SABRINA Heparin Sodium (Porcine) 5,000 unit 12/27/24 09:00 12/28/24 09:02 Heparin Sod Inj 5000 Unit/Ml Vial SC 01/10/25 08:59 5,000 unit Q12HR SABRINA Administration Hydroxyzine HCl 50 mg 12/27/24 21:00 12/27/24 20:32 Hydroxyzine Hcl 25 Mg Tablet PO 01/26/25 20:59 50 mg HS SABRINA Administration Fluconazole 200 mg in 100 mls @ 100 mls/hr 12/27/24 14:00 12/27/24 14:10 Diflucan/Ns Ivpb IV 01/03/25 13:59 100 mls/hr QDAY@1400 SABRINA Administration Piperacillin/Tazobactam/Dextrose 2.25 gm in 50 mls @ 12.5 mls/hr 12/26/24 22:00 12/28/24 05:53 Zosyn IV 01/02/25 21:59 12.5 mls/hr Q8HR SABRINA Administration Levalbuterol HCl 0.31 mg 12/26/24 04:19 12/28/24 10:13 Levalbuterol Rt 0.31 Mg/3 Ml Nebu INH 01/25/25 04:18 0.31 mg Q4HR PRN Administration WHEEZING Melatonin 3 mg 12/26/24 18:00 12/27/24 20:32 Melatonin 3 Mg Tablet PO 01/25/25 17:59 3 mg HS SABRINA Administration Ondansetron HCl 4 mg 12/24/24 14:41 12/26/24 03:58 Ondansetron Inj 2 Mg/Ml Inj 2 Ml IV 01/23/25 14:40 4 mg Q6H PRN Administration NAUSEA OR VOMITING Protocol Pantoprazole Sodium 40 mg 12/27/24 09:00 12/28/24 09:02 Pantoprazole Inj 40 Mg Vial IVP 01/26/25 08:59 40 mg DAILY SABRINA Administration Pharmacy Consult 1 each 12/26/24 17:30 Vancomycin Pharmacy To Dose 1 Each Each IV 01/25/25 17:29 QDAY PRN PROTOCOL Sennosides 1 tab 12/24/24 21:00 12/28/24 09:01 Senna Tablet PO 01/23/25 20:59 1 tab BID SABRINA Administration Protocol Sodium Chloride 3 ml 12/24/24 22:40 12/26/24 08:09 Sodium Chloride Rt Annika 0.9% 3 Ml Nebu INH 01/23/25 22:39 3 ml PRN PRN Administration SOLN Plan Assessment and plan: Summary: Mr. 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 Patient admitted to the hospital for fluid overload, CHF exacerbation management. 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 On presentation was satting well on room air, eventually needed supplemental oxygen to maintain saturation more than 92, BNP on presentation 1691, CTA negative for PE chest x-ray showed mild CHF. Bilateral crackles heard on physical exam, 3+ bilateral lower extremity pitting edema. Echocardiogram on 11/30/2024: Normal LV size and function. EF 55-60%. Diastolic dysfunction present but cannot be graded. Normal RV size and function. Estimated RVSP moderately elevated RVSP 55 mmHg. Moderate-severe . AV Vmax 3.8 m/s, mean PG 38 mmHg. LATRICE 0.5 cm^2. Severe posterior MAC and moderate anterior MAC with mild mitral stenosis. Mean PG 5 mmHg. Moderate-severe MR. Moderate TR and mild to moderate AI. Moderately dilated LA and mildly dilated RA. Patient has had about 4 L removed net throughout hospitalization per nephrology. There is suspicion of ultrafiltration failure. Plan: - Nephrology consulted, continue peritoneal dialysis per nephrology. - Strict intake and output - Fluid restriction - Monitor daily weights - Cardiology consulted, appreciate recommendations - Patient has some insomnia, anxiety started on melatonin 3 mg at 6 PM - Hydroxyzine twice daily # Sepsis, SIRS +3/4, #? Peritonitis Patient noted to be tachycardic, tachypneic and does have an elevated WBC count of 17.2 today, no fevers noted patient does have worsening mentation compared to yesterday, later in the evening patient did complain of abdominal pain as well. Cell count from 8 on annual dialysis negative, pending cultures Follow cultures - Continue IV antibiotics - Tylenol as needed for pain - Follow CT chest abdomen pelvis. #Acute on chronic normocytic normochromic anemia Multifactorial reason, does have CKD, transfused 1 unit PRBC in ED Iron 47, TIBC 295, iron sat 20%, unsaturated iron binding 178, LDH 453, vitamin B12 347, folate 10.05 Reticulocyte count 4.1%, absolute reticulocyte 132.2, immature reticulocyte fraction 44.7 PBS shows severe normocytic normochromic anemia with anisocytosis. Mild thrombocytosis, unremarkable granulocytes. Pathology recommends ruling out acute/subacute bleed. Plan: - Follow fecal occult blood - Hold 1 unit PRBC, will transfuse if hemoglobin around 8 #? MAT vs new onset atrial fibrillation with RVR vs frequent PACs Patient presents with shortness of breath and found to have abnormal EKG that showed irregular, sinus rhythm with multiple PACs, incomplete RBBB, and QTc 523. EKG also showing multiple different P wave morphologies. Of note, patient has moderately dilated LA as seen on echo on 11/30/2024 in setting of moderate-severe aortic stenosis. Thus, with multiple P wave morphologies, likely patient has MAT rather than new onset atrial fibrillation with RVR. Additionally, K noted to be low at 3.1 and hemoglobin also low at 6.6 that may be contributing/aggravating factors. [id number] score of 7 and HAS-BLED score of 5. Given recent history of blood- tinged emesis as well as hemoglobin of 6.6, recommend to hold off on AC if A- fib. Of note, patient noted to have home Rx of clopidogrel 75 mg, recommend to hold as well. Plan: ? Continue metoprolol succinate 25 mg daily ? Telemetry monitoring #GERD #Gastritis #? GI bleed Patient did have an episode of hematemesis outpatient, 14 days postdischarge from hospital, was switched from Eliquis to Plavix. Hemoglobin on presentation was 6.6, was transfused 1 unit PRBC. Patient on Tums 4 times a day at home CTA chest showed suspicious finding of free air under diaphragm, KUB unremarkable. Fecal occult blood test negative - Continue Protonix 40 mg IV daily #Hyperlipidemia Lipid panel from previous admission: cholesterol 138, LDL 83, HDL 43, triglycerides 58 ? Continue home dose atorvastatin 40 mg daily #Hypertension Patient on metoprolol tartrate at home for blood pressure management ? Continue metoprolol succinate 25 mg daily #Asthma Longstanding history of asthma, uses inhalers at home - Pulmicort twice daily - Xopenex every 4 hours as needed #History of CVA Hold Plavix #Right hip fracture, s/p FNS on 12/01 #Right shoulder fracture, s/p CRIF on 12/01 #Osteoarthritis Consulted physical therapy #Antonia's granulomatosis Stable currently, was on rituximab in the past Family requested workup, ordered ANCA screen, ESR CRP DVT prophylaxis: Heparin every 12 hours GI prophylaxis: IV Protonix daily Diet: Renal, food restriction 1500 cc Lines: Peripheral IV Code status: Full code Case discussed with Attending Dr. Tenorio and my senior Dr Seay PGY2 Misha Mcgowan PGY1 Attending Provider Attestation/Addendum CT scan today showed pulmonary nodules and vascular congestion. The patient still tachypneic. I spoke with Dr. Olivares, he will talk to the family. Discussed with housestaff today
[2024-12-28] MEDS: FLUCONAZOLE/NS 200 MG IVPB 200 MG/100 ML BAG 100 MG IV (14:19)
[2024-12-28] MEDS: DILTIAZEM 30 MG TABLET PO ×2 (14:19→21:05)
--- NOTE | 2024-12-28 14:49 | ESPR_ITS ---
Documentation for date of: 12/28/24 Subjective Subjective Interval history: Patient seen and examined in the AM. No overngight events, mentation has not changed. Still having difficulty with breathing Exam Vital Signs Temp Pulse Resp BP Pulse Ox O2 Del Method O2 Flow Rate 97.4 F 82 22 H 164/76 H 100 Room Air 3 12/28/24 12:00 12/28/24 14:19 12/28/24 14:16 12/28/24 14:19 12/28/24 14:16 12/28/24 12:00 12/28/24 08:00 FiO2 12/27/24 18:40 Narrative Exam General: AOx3, moderate respiratory distress, speaks in 2-3 word sentences HEENT: NC/AT, mucous membranes moist Cardiovascular: irregular rhythm,,4/6 ESM in aortic area raditing to carotids, PSM mitral area. Pulmonary: on HFNC, mild respiratory distress, crackles auscultated bilaterally, speaks in short sentences, accessory muscle use noted Abdominal: soft, non-tender, non-distended, no rebound/guarding, normal bowel sounds present Musculoskeletal: 3+ pitting bilateral lower extremity edema Skin: warm and dry, intact, no rashes Neuro: CN II-XII intact, no focal deficits Objective Labs 12/28/24 05:56 12/28/24 05:56 Labs: Laboratory Results - last 24 hr 12/28/24 05:56 WBC 12.0 H RBC 2.80 L Hgb 8.3 L Hct 26.2 L MCV 94 MCH 29.6 MCHC 31.7 RDW Std Deviation 59.7 H Plt Count 374 D Neut % (Auto) 75 Lymph % (Auto) 15 Sibley % (Auto) 8 Eos % (Auto) 2 Baso % (Auto) 0 Neut # (Auto) 8.9 H Lymph # (Auto) 1.8 Sibley # (Auto) 0.9 H Eos # (Auto) 0.3 Baso # (Auto) 0.0 Immature Gran # (Auto) 0.10 H Absolute Nucleated RBC 0.02 H Immature Gran % 1 H Nucleated RBC % 0 Sodium 138 Potassium 3.7 D Chloride 100 Carbon Dioxide 27.3 Anion Gap 11 BUN 46 H Creatinine 5.6 H* Estim Creat Clear Calc 5.4 L eGFR 7 L* BUN/Creatinine Ratio 8 L Glucose 98 Calculated Osmolality 287 Calcium 8.8 Corrected Calcium 9.4 Phosphorus 3.9 Magnesium 1.4 L Total Bilirubin 0.5 AST 32 ALT 20 Alkaline Phosphatase 87 B-Natriuretic Peptide 1100 H* Total Protein 6.0 Albumin 3.3 L Globulin 2.7 Albumin/Globulin Ratio 1.2 Random Vancomycin 15.8 ABG Interpretation ABG results: 12/26/24 12/26/24 12/26/24 08:44 15:55 18:19 ABG pH 7.42 7.46 H ABG pCO2 44 43 ABG pO2 80 L 84 ABG HCO3 29 H 30 H ABG O2 Saturation 97 98 ABG Base Excess 4 H 5 H VBG pH 7.48 VBG pCO2 39 VBG pO2 98 H VBG Base Excess 5 H 12/27/24 12/27/24 05:00 12:03 ABG pH 7.43 ABG pCO2 46 ABG pO2 83 ABG HCO3 30 H ABG O2 Saturation 98 ABG Base Excess 6 H VBG pH 7.43 VBG pCO2 41 VBG pO2 89 H VBG Base Excess 3 Quality Measures Quality Measures none Advance care planning discussed with:: patient Assessment & Plan Assessment Current Active Medications: Generic Name Dose Route Start Last Admin Trade Name Freq PRN Reason Stop Dose Admin Acetaminophen 650 mg 12/24/24 14:41 12/28/24 05:53 Acetaminophen 325 Mg Tablet PO 01/23/25 14:40 650 mg Q6H PRN Administration Pain (1-3) & Fever >100.3 Budesonide 0.5 mg 12/24/24 19:00 12/28/24 06:39 Budesonide Rt 0.5 Mg/2 Ml Nebu INH 01/23/25 18:59 0.5 mg BIDRT SABRINA Administration Diltiazem HCl 30 mg 12/28/24 14:00 12/28/24 14:19 Diltiazem 30 Mg Tablet PO 01/27/25 13:59 30 mg TID SABRINA Administration Heparin Sodium (Porcine) 5,000 unit 12/27/24 09:00 12/28/24 09:02 Heparin Sod Inj 5000 Unit/Ml Vial SC 01/10/25 08:59 5,000 unit Q12HR SABRINA Administration Hydroxyzine HCl 50 mg 12/27/24 21:00 12/27/24 20:32 Hydroxyzine Hcl 25 Mg Tablet PO 01/26/25 20:59 50 mg HS SABRINA Administration Fluconazole 200 mg in 100 mls @ 100 mls/hr 12/27/24 14:00 12/28/24 14:19 Diflucan/Ns Ivpb IV 01/03/25 13:59 100 mls/hr QDAY@1400 SABRINA Administration Piperacillin/Tazobactam/Dextrose 2.25 gm in 50 mls @ 12.5 mls/hr 12/26/24 22:00 12/28/24 14:19 Zosyn IV 01/02/25 21:59 12.5 mls/hr Q8HR SABRINA Administration Levalbuterol HCl 0.31 mg 12/26/24 04:19 12/28/24 14:15 Levalbuterol Rt 0.31 Mg/3 Ml Nebu INH 01/25/25 04:18 0.31 mg Q4HR PRN Administration WHEEZING Melatonin 3 mg 12/26/24 18:00 12/27/24 20:32 Melatonin 3 Mg Tablet PO 01/25/25 17:59 3 mg HS SABRINA Administration Ondansetron HCl 4 mg 12/24/24 14:41 12/26/24 03:58 Ondansetron Inj 2 Mg/Ml Inj 2 Ml IV 01/23/25 14:40 4 mg Q6H PRN Administration NAUSEA OR VOMITING Protocol Pantoprazole Sodium 40 mg 12/27/24 09:00 12/28/24 09:02 Pantoprazole Inj 40 Mg Vial IVP 01/26/25 08:59 40 mg DAILY SABRINA Administration Pharmacy Consult 1 each 12/26/24 17:30 Vancomycin Pharmacy To Dose 1 Each Each IV 01/25/25 17:29 QDAY PRN PROTOCOL Sennosides 1 tab 12/24/24 21:00 12/28/24 09:01 Senna Tablet PO 01/23/25 20:59 1 tab BID SABRINA Administration Protocol Sodium Chloride 3 ml 12/24/24 22:40 12/26/24 08:09 Sodium Chloride Rt Annika 0.9% 3 Ml Nebu INH 01/23/25 22:39 3 ml PRN PRN Administration SOLN Plan Tho Lee is an 84-year-old female with a past medical history of Antonia's granulomatosis diagnosed 25 years ago, 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 Cardiology consulted due to history of aortic stenosis, new onset afib, and CHF exacerbation. #? MAT vs new onset atrial fibrillation with RVR vs frequent PACs Patient presents with shortness of breath and found to have abnormal EKG that showed irregular, sinus rhythm with multiple PACs, incomplete RBBB, and QTc 523. EKG also showing multiple different P wave morphologies. Of note, patient has moderately dilated LA as seen on echo on 11/30/2024 in setting of moderate- severe aortic stenosis. Thus, with multiple P wave morphologies, likely patient has MAT rather than new onset atrial fibrillation with RVR. Additionally, K noted to be low at 3.1 and hemoglobin also low at 6.6 that may be contributing/aggravating factors. [id number] score of 7 and HAS-BLED score of 5. Given recent history of blood- tinged emesis as well as hemoglobin of 6.6, recommend to hold off on AC if A- fib. Of note, patient noted to have home Rx of clopidogrel 75 mg, recommend to hold as well. ? DC metoprolol succinate 25 mg daily - start diltiazem 30mg TID ? Outpatient work up for TAVR once the patient is more stable #Acute diastolic CHF exacerbation #History of HFpEF (EF 55-60% 11/2024) #NSTEMI type II/demand ischemia #Pulmonary hypertension, mild to moderate In addition to shortness of breath patient also endorses orthopnea, PND, and bilateral lower extremity edema. BNP 1691 and troponin peaked at 0.144. Suspect demand ischemia secondary to acute CHF exacerbation in addition to history of moderate-severe aortic stenosis and low intravascular volume (acute on chronic anemia with initial hemoglobin of 6.6), leading to decreased tissue oxygenation/perfusion. ? Given that patient is anuric, will not be able to diurese and Sette will have to remove fluid via peritoneal dialysis ? Nephrology following, appreciate recommendations ? Strict I's and O's ? Fluid restrictions ? Daily weights - highly recommend to place patient in HD dialysis. #Acute on chronic normocytic anemia Has baseline anemia with hemoglobin of 8.5-9.0, but presents with hemoglobin 6.6. Was noted to be on eliquis 2.5 mg PO BID for post-surgical DVT prophylaxis as well as home rx of clopidogrel. Apparently, patient also had blood-tinged emesis but denies melena and hematochezia. Recommend full anemia work-up and transfusion of total of 2 units pRBC. #Moderate-severe aortic stenosis #Moderate-severe mitral regurgitation Echo on 11/30/2024: Normal LV size and function. EF 55-60%. Diastolic dysfunction present but cannot be graded. Normal RV size and function. Estimated RVSP moderately elevated RVSP 55 mmHg. Moderate-severe . AV Vmax 3.8 m/s, mean PG 38 mmHg. LATRICE 0.5 cm^2. Severe posterior MAC and moderate anterior MAC with mild mitral stenosis. Mean PG 5 mmHg. Moderate-severe MR. Moderate TR and mild to moderate AI. Moderately dilated LA and mildly dilated RA. ? Follow-up outpatient for further TAVR evaluation #Hyperlipidemia Lipid panel from previous admission: cholesterol 138, LDL 83, HDL 43, triglycerides 58 ? Continue home dose atorvastatin 40 mg daily #Hypertension Patient on metoprolol tartrate at home for blood pressure management ? Recommend metoprolol succinate 25 mg daily as above #Right hip fracture, s/p FNS on 12/01 #Right shoulder fracture, s/p CRIF on 12/01 #ESRD on PD #Antonia's granulomatosis #GERD #Gastritis #History of CVA #Asthma #Osteoarthritis ? Management of above conditions per primary team and other consultants ----- - Patient's care was discussed with my attending physician, Dr. Matt Osborne MD Internal Medicine PGY-3 Attending Provider Attestation/Addendum I have personally seen and examined the patient separately on the above date of service and discussed the plan of care with the resident. I reviewed the resident Mik Jules consultation progress note and agree with the resident findings and plan in the note above and have also edited the documentation to reflect my findings and plan. Mrs. 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 Patient was recently discharged from the hospital after recent fall status post right femur fracture and repair in November 2024. During this admission patient was diagnosed with moderate to severe moderate to severe MR and mild MS on diastolic dysfunction by the echo. Patient was discharged home with home PT and also on Eliquis 2.5 mg twice daily for anticoagulation for DVT prophylaxis. Patient apparently developed some streaks of blood in the cough and the Eliquis was stopped. Patient continued to have worsening shortness of breath since the time of discharge and only progressed to the level that now she has orthopnea PND as well as significant shortness of breath at rest. Patient not able to speak in full sentences. On examination patient also does have at least 2+ edema more on the dependent areas. Denies any Fever or chills or cough or sputum production. Denies any chest pain chest pressure or palpitations or dizziness or syncope or fall. Has not been ambulating much since her discharge. Initial EKG showed atrial fibrillation with RVR at around 131 bpm. Review of the telemetry now shows normal sinus rhythm with frequent PACs. Chest CTA was performed which showed significant vascular congestion along with septal pulmonary edema and no evidence of any PE and 8 mm, 12 known pulmonary nodules. Chest x-ray showed recent subacute fracture of the right humerus. Labs showed severe anemia with hemoglobin of 6.6 and platelets of 486 and WBC of 10.5 INR was 1.1. Sodium 137, potassium was 3.0 and chloride of 96 and BUN of 61 creatinine of 6.6 initial troponin was 0.144 and repeat was 0.139. BNP was 1691 and previous was only in the 300s LFTs were normal albumin was low at 3.2. Blood pressure was elevated on arrival at around 150-160 mmHg. Heart rate was 131 and now better controlled around 96 bpm. She is tachypneic around 25 to 30/min and saturations are 96% on 2 L oxygen via nasal cannula Assessment and plan: 1. Shortness of breath with orthopnea and PND - multifactorial mostly secondary to fluid overload from inadequate dialysis as well as moderate severe aortic stenosis, MR and severe anemia at 6.6 with component of pulmonary hypertension 2. End-stage renal disease on peritoneal dialysis secondary to Antonia's granulomatosis for the past 4 years 3. Moderate to severe carotid stenosis but valve area less than 1 cm? 4. Moderate to severe MR 5. Antonia's granulomatosis diagnosed 25 years ago 6. History of CVA or stroke 15 years ago with residual right hemiparesis 7. Diastolic congestive heart failure 8. Essential hypertension 9. Recent fall status post right femur fracture and repair, right humeral fracture with conservative treatment 10. Pulmonary hypertension-mild to moderate 11. hyperlipidemia 12. Chronic asthma on inhalers, chronic anemia osteoarthritis, osteoporosis, GERD Patient presented with acute hypoxic respiratory failure mostly secondary to fluid overload which is multifactorial secondary to inadequate dialysis from the peritoneal dialysis, moderate to severe aortic stenosis, moderate to severe MR, severe anemia with hemoglobin of 6.6 as well as a component of mild to moderate PAH. Recommend to transfuse 2 units of PRBC first unit now and second unit after the dialysis session. Urgent peritoneal dialysis as patient cannot be transitioned to hemodialysis catheter is no tunnel dialysis catheter could be placed today. Nephrology consulted by primary team. Recommend daily dialysis for the next couple of days as patient is fluid overloaded with a BNP elevated 6091 and previously was in the 300s. CTA was negative for PE and also any kind of pneumonia. Also recommended she had complete anemia workup from the labs sent earlier this morning and not the labs after the transfusion. Recommend to give iron transfusions if the patient has low or iron deficiency anemia. Patient presented with tachycardia and questionable atrial fibrillation. Patient does show significant P waves and patient possibly has multifocal atrial tachycardia versus atrial fibrillation but now already in the telemetry patient is in normal sinus rhythm with only PACs. Recommend only beta-pratik metoprolol XL 25 mg for now and hold off on anticoagulation given the severe anemia and also recent blood-tinged hemoptysis versus emesis. Will restart anticoagulation at a later date if atrial fibrillation is confirmed. Continue to monitor telemetry. Keep potassium between 4-5 and magnesium greater than 2.0 at all times. Her most recent echo as noted below and has moderate to severe aortic stenosis with a V-max of 3.8 m/s and mean PG of 38 mmHg and aortic valve area of 0.5 cm?, moderate to severe MR, mild mitral stenosis with mean PG of 5 mmHg, moderate TR as well as diastolic dysfunction. Patient needs to continue to workup further at SAVR versus TAVR as outpatient For which she was scheduled to see me in the office next week but will await for her to recover from the recent fall and the hip fracture s/p repair. Will expect the MR to improve after the aortic valve replacement for but overall given her age and dialysis and it is not ideal to do any repair for her mitral valve regurgitation or the mild MS. 12/28/2024: Patient was seen and examined at the bedside. Had a detailed discussion with the son and the daughter at the bedside today. Respiratory status appears to be better today but still is significantly short of breath. Overall on examination today patient appears to be not significantly fluid overloaded. She received total of up to 25 hours of peritoneal dialysis since admission. Peritoneal fluid cell count performed and there was no evidence of any elevated WBC and nephrology recommended to continue peritoneal dialysis as family has reservations regarding hemodialysis as her from complications with the hemodialysis. Still continues to have some abdominal pain. She is not on oxygen today but still not able to speak in full sentences. Recommended repeat CT scan of the chest and also repeat BNP. CT scan chest pelvis and abdomen is pending. Repeat BNP still in 1100 and previous was 1600. BMP improving but her baseline BNP is less than 300 which was during the last admission. Primary team discussed about possible cardiac catheterization for the patient given the continued shortness of breath but patient is unable to lie flat and also patient is not having any acute coronary syndrome and will not require cardiac catheterization at the present point of time. Right heart catheterization will only reveal that patient is fluid overloaded and recommend to continue dialysis for now. Hence no indication for any cardiac cath at the present moment Patient continues to be short of breath and given her history of asthma patient is on beta-pratik for the questionable mat versus A-fib and will stop the beta- pratik completely to avoid significant bronchospasm and started the patient on Cardizem 30 mg every 8 hours. Continue home inhalers along with Xopenex as well as Pulmicort. No albuterol for now. Patient continues to be in sinus rhythm on telemetry with heart rate of 70 to 80 bpm. Continue to keep potassium between 4 and 5 and magnesium greater than 2 at all times. Discussed with the family at bedside in detail and she will need to follow-up patient to continue the TAVR workup. Management of rest of the medical conditions as per primary team and other consultants. Thank you for the consult and allowing me to participate in the care of the patient. Cardiology will continue to follow. Jori Olivares M.D. Interventional Cardiology
--- NOTE | 2024-12-28 17:19 | PC.NURSE ---
peroteneal dialysis in progress at bedside.family member at bedside.
[2024-12-28] MEDS: hydrOXYzine HCL 25 MG TABLET 50 MG PO (20:56)
[2024-12-28] MEDS: MELATONIN 3 MG TABLET PO (20:56)
--- NOTE | 2024-12-28 23:13 | ESPR_ITS ---
RE: WHIT TITUS : 1940 DATE OF SERVICE: 12/28/2024 HISTORY OF PRESENT ILLNESS: This patient is an 84-year-old -[place] woman with Antonia's granulomatosis 25 years ago, status post CVA, heart failure with preserved EF of 55%-60%, severe aortic stenosis, atrial fibrillation, and ESRD, on peritoneal dialysis for the past 4 years in [place], who presented to the emergency room on 12/24/2024 with increasing shortness of breath. The patient was dialyzed through peritoneal dialysis aggressively since admission; however, we slowed down yesterday as patient became tachypneic. Her ABG showed respiratory alkalosis. Chest x-ray showed improvement and O2 sat revealed 95%-100% on room air. The patient just came back from CAT scan as family has concerned about slow drainage. CURRENT MEDICATIONS: 1. Acetaminophen. 2. Budesonide. 3. Diltiazem 30 mg p.o. t.i.d. 4. Epogen 10,000 units x1. 5. Fluconazole. 6. Heparin. 7. Hydroxyzine. 8. Levalbuterol. 9. Magnesium. 10. Ondansetron. PHYSICAL EXAMINATION: General: She is awake, alert, and oriented. Vital Signs: Blood pressure is 134/69, respiratory rate of 24, temperature 97.5, and O2 saturation of 100% on room air. HEENT: Anicteric sclerae. Normocephalic. Neck: Supple. No JVD. Chest and Lungs: Symmetric expansion. Clear breath sounds. Cardiac: Without murmur. Abdomen: Soft and nontender. Extremities: No edema. LABORATORY DATA: Hemoglobin 8.3, WBC 12,000, and platelet count 274,000. Sodium 138, potassium 3.7, chloride 100, CO2 is 27.3, BUN 46, creatinine 5.6, and glucose 98. BNP 1100 down from previous of 1691 upon admission. ASSESSMENT: 1. End-stage renal disease secondary to Antonia's granulomatosis, on peritoneal dialysis. 2. Volume overload secondary to ultrafiltration failure, now improved. 3. Anemia of chronic disease. 4. History of hypertension. 5. Severe aortic stenosis. 6. History of right hip fracture, status post femoral neck system and closed reduction internal fixation. 7. Hypoxia, now improved. 8. Hypomagnesemia. PLAN: We will continue current CCPD prescription. If patient continues to be stable, then patient can be discharged to home tomorrow. DT: 22:31:30 TT: 23:11:00 Ref: [id number] - TID: [id number] MTDD
[2024-12-29] VITALS (8 sets, daily range): BP systolic 122–149; BP diastolic 75–86; PULSE 60–79; RESP 14–99; TEMP 35.9–36.6; O2SAT 95–100; BMI 26.6; BMI 12.0
[2024-12-29] MEDS: PIPER/TAZO 2.25 GM 2.25 GM/50 ML BAG IV (05:56)
[2024-12-29] MEDS: DILTIAZEM 30 MG TABLET PO (05:58)
[2024-12-29] MEDS: LEVALBUTEROL RT 0.31 MG/3 ML NEBU INH ×2 (08:20→12:34)
[2024-12-29] MEDS: BUDESONIDE RT 0.5 MG/2 ML NEBU INH (08:21)
[2024-12-29 08:40] LABS: Basophils % (Auto) 0 % (0-2.5); Eosinophils # (Auto) 0.3 Thou/mm3 (0.0-0.5); Eosinophils % (Auto) 3 % (0-10); Hematocrit 23.2 % (36.0-46.0); Immature Granulocytes % (Auto) 1 % (0-0); Lymphocytes # (Auto) 1.8 Thou/mm3 (1.0-4.8); Lymphocytes % (Auto) 16 % (10-50); Mean Corpuscular HGB Conc 33.2 g/dl (31.0-37.0); Mean Corpuscular Hemoglobin 29.8 pg (25.0-35.0); Mean Corpuscular Volume 90 fL (80-100); Monocytes % (Auto) 9 % (0-12); Neutrophils # (Auto) 7.9 Thou/mm3 (1.8-7.7); Neutrophils % (Auto) 71 % (37-80); Nucleated Red Blood Cell # 0.03 Thou/mm3 (0.00-0.00); Nucleated Red Blood Cell % 0 /100 WBC (0); Platelet Count 364 Thou/mm3 (140-440); RDW Standard Deviation 56.2 fL (36.4-46.3); Red Blood Count 2.58 Miln/mm3 (4.00-5.20); White Blood Count 11.1 Thou/mm3 (3.6-11.0)
--- NOTE | 2024-12-29 08:51 | PC.SS ---
Follow up note: Dialysis today. SS followed up with Elton from [facility] with Dr. Coley who states they have insurance clearance. Pt is new to peritoneal dialysis.
[2024-12-29 08:54] LABS: Alanine Aminotransferase 16 U/L (10-49); Albumin, Serum 3.1 gm/dL (3.4-4.8); Albumin/Globulin Ratio 1.2 (1.2-2.2); Alkaline Phosphatase 78 U/L (46-116); Anion Gap 11 (7-16); Aspartate Amino Transferase 26 U/L (0-34); BUN/Creatinine Ratio 8 Ratio (12-20); Bilirubin,Total 0.4 mg/dL (0.3-1.2); Blood Urea Nitrogen 47 mg/dL (9-23); Calcium 8.4 mg/dL (8.3-10.6); Calcium (Corrected) 9.1 mg/dL (8.5-10.1); Carbon Dioxide 28.1 mMol/L (20.0-31.0); Chloride 96 mMol/L (98-107); Creatinine (Component) 6.1 mg/dL (0.6-1.3); Estimated Creatinine Clearance 5.1 mL/min (>60); Globulin 2.5 gm/dL (2.3-3.5); Glucose 94 mg/dL (74-106); Hemoglobin 7.7 g/dL (12.0-16.0); Magnesium 1.6 mg/dL (1.6-2.6); Osmolality,Calculated 282 (275-295); Phosphorous 3.8 mg/dL (2.4-5.1); Potassium 3.4 mMol/L (3.4-5.1); Sodium 135 mMol/L (136-145); Total Protein 5.6 gm/dL (5.7-8.2); eGFR 6 See Note
--- NOTE | 2024-12-29 08:54 | PC.SS ---
Addendum entered by Jen Arellano 12/29/24 15:13: Son is aware of patient's first dialysis session on Wednesday at 10am. Addendum entered by Jen Arellano 12/29/24 12:35: SS met with patient's Stacie ortez phone# [phone] at bedside who states pt has 2 weeks supplies at home for peritoneal dialysis. Charleen from [facility] who is aware and states for the 1st session pt must go to [facility] and then be transitioned to dialysis at home. Patient's 1st session is Wednesday01-01-25 at 10am. SS provided Stacie ortez with [facility] which contains dialysis time, date, address, and phone#. pt has equip. Son or Dr. Elena will provide transportation home. Original Note: Pt will return home upon dc.
[2024-12-29] MEDS: PANTOPRAZOLE INJ 40 MG VIAL IVP (08:55)
[2024-12-29] MEDS: HEPARIN SOD INJ 5000 UNIT/ML VIAL SC (08:55)
[2024-12-29 09:04] LABS: Vancomycin,Random 25.7 mcg/mL
[2024-12-29] MEDS: POTASSIUM CHLORIDE 10% 20 MEQ/15 ML UDC 40 MEQ GT (12:10)
--- NOTE | 2024-12-29 12:34 | ESDS_ITS ---
Planned Discharge Date 12/29/24 DS: Providers Provider Date of admission: 12/24/24 14:42 Primary care physician: Jori Woodruff Admitting Provider: Hansel Quijano DO Attending Provider on Admission: Deacon Tenorio MD Consults: 12/24/24 14:47 Consult to Cardiology Routine Comment: A Fib wth RVR, CHF Exacerbation Consulting Provider: Jori Olivares 12/24/24 16:17 Consult to Nephrology Stat Comment: Consulting Provider: Essence Coley 12/24/24 18:38 Referral Physical Therapy Routine Comment: Physician Instructions: 12/26/24 17:27 Referral Pharmacy Stat Comment: Medication Dosing Reason for Consult: Medication Dosing Attending Provider on DC: Deacon Tenorio MD Discharging Provider: Deacon Tenorio MD Anticipated date of discharge: 12/29/24 DS: Diagnosis Problem List Completed Was Problem List Reviewed/Reconciled?: Yes Hospital Course Hospital Course Hospital course: Hospital course: Ms Lee is a 84-year-old female with past medical history of diastolic heart failure, moderate to severe aortic stenosis, moderate to severe mitral regurgitation (follows Dr. 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 Patient was found to be fluid overloaded, was admitted to the hospital for further management of acute decompensated heart failure and fluid overload. Nephrology was consulted, patient had large-volume removal via peritoneal dialysis, patient received multiple sessions of peritoneal dialysis throughout the hospitalization and had significant amount of fluid removed. During the hospital course patient had episodes of increased work of breathing and accessory muscle use during peritoneal dialysis, nephrology eventually d ecreased the volume of peritoneal dialysis and patient was started on hydroxyzine for anxiety as multiple ABGs, chest x-ray and CT chest abdomen pelvis was unremarkable. Patient did complain of abdominal pain, cell count from PD fluid was negative, was covered empirically with Zosyn, vancomycin and fluconazole, which were eventually discontinued as no source of sepsis was identified and patient condition improved. Also during the course patient had tachycardia, per cardiology high suspicion of multifocal atrial tachycardia versus other tachyarrhythmias. Fecal occult blood was negative, no evidence of GI bleed and hemoglobin was stable. With the progression of hospital course patient condition improved, patient's family at bedside was kept informed throughout the course, eventually patient was deemed stable to be discharged. Further plan is to discharge patient home on diltiazem 30 mg p.o. 3 times daily with holding parameters of SBP less than 110, hydroxyzine 50 mg twice daily as needed, Protonix 20 mg twice daily and home inhalers. Patient to continue all other home medications and follow-up with nephrology and cardiology in 1 to 2 weeks. Patient will require workup outpatient for TAVR, patient is stable for discharge and patient responded well to hospital treatment. 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 Tenorio. Misha Mcgowan PGY1 Disclaimer: This note was dictated by speech recognition. Minor errors in residential real estate appraiser may be present due to voice recognition software. Status at Discharge Functional status at discharge: uses cane/walker Overall status at discharge: patient is progressing back to baseline Time Spent with Patient Time attestation: Total time spent providing and/or coordinating discharge services: Time spent: Greater than 30 minutes Exam Vital Signs Temp Pulse Resp BP Pulse Ox O2 Del Method O2 Flow Rate 97.2 F 69 21 H 141/75 H 95 Room Air 2 12/29/24 08:00 12/29/24 08:22 12/29/24 08:22 12/29/24 08:00 12/29/24 08:22 12/29/24 08:00 12/29/24 04:00 FiO2 25 12/28/24 20:00 Narrative Exam General: AOx3, moderate respiratory distress, shortness of breath noted on talking. HEENT: NC/AT, mucous membranes moist Cardiovascular: irregular rhythm,,4/6 ESM in aortic area raditing to carotids, PSM mitral area. Pulmonary: on HFNC, mild respiratory distress, crackles auscultated bilaterally, speaks in short sentences, accessory muscle use noted Abdominal: soft, non-tender, non-distended, no rebound/guarding, normal bowel sounds present Musculoskeletal: 3+ pitting bilateral lower extremity edema Skin: warm and dry, intact, no rashes Neuro: CN II-XII intact, no focal deficits Discharge Plan Plan Patient Disposition: HOME (Self Care) Patient condition on transfer: Stable Prescriptions/Referrals Prescriptions/Med Rec: New hydroxyzine HCl 25 mg Tablet 50 mg PO BID PRN (Reason: Anxiety) 30 Days Qty: 60 0RF Breztri Aerosphere 160-9-4.8 mcg/actuation HFA aerosol inhaler 2 inh inhalation BID Qty: 10.7 3RF pantoprazole 20 mg tablet,delayed release (DR/EC) 20 mg PO BID Qty: 60 0RF diltiazem HCl 30 mg Tablet 30 mg PO TID 30 Days Qty: 90 0RF Rx Instructions: Hold that particular dose if SBP less than 110 Continued megestrol 400 mg/10 mL (40 mg/mL) suspension 40 mg PO QDAY Qty: 240 0RF ondansetron 4 mg tablet,disintegrating 4 mg PO Q6H PRN (Reason: nausea and vomiting) Qty: 30 0RF Rx Instructions: disintegrating tablet clopidogrel [Plavix] 75 MG tablet 75 mg PO QDAY Qty: 30 0RF acetaminophen 500 mg Capsule 1,000 mg PO Q6H PRN (Reason: Pain) atorvastatin 40 mg Tablet 40 mg PO QDAY calcitriol 0.25 mcg capsule 0.25 mcg PO QDAY albuterol sulfate [Ventolin HFA] 90 mcg/actuation Hfa Aerosol Inhaler 2 puff INHALATION QID PRN (Reason: sob) 30 Days Qty: 2 0RF Discontinued pantoprazole 40 mg tablet,delayed release (DR/EC) 40 mg PO DAILY Patient Comments: TAKE 1 TABLET BY MOUTH EVERY DAY Referrals: Sukhdeep Leo MD [Physician] - Jori Olivares MD [Physician] - Jori Woodruff [Primary Care Provider] - Patient/Caregiver Discharge Instructions Discharge Activity: as per physical therapy Other Discharge Activity Instructions:: Use diltiazem 30 mg 3 times daily, hold that particular dose if SBP is less than 110 for tachycardia. Use Atarax as needed for anxiety, twice a day. Use Breztri and Ventolin as for asthma. Change Protonix 20 mg twice a day instead of Protonix daily. Continue all other home medications. Follow-up with supervisor cell efficiency by 01/04/2025, for TAVR workup outpatient, call supervisor cell efficiency office for appointment. Follow-up with primary care physician in 1-2 weeks. Continue outpatient peritoneal dialysis, follow-up with program evaluator in 1 to 2 weeks Return to emergency department if symptoms worsen. Other Discharge Diet Instructions: Renal diet, fluid restriction to less than 2 L in a day. Education Materials: Hemodialysis, Coping with Heart Failure, Heart Failure Dc Print Language: Cypriot Stand Alone Forms: Saranya Award Info., Patient Portal Info Letter Discharge Order Discharge Orders: Discharge (Routine); Ordered 12/29/24 Ordered By: Misha Mcgowan Quality Discharge Quality Measures VTE prophylaxis Attestestation Attestation I discussed with and supervised the resident physician who took care of this patient. I agree with the assessment and discharge plan as above.
--- NOTE | 2024-12-29 12:59 | ESPR_ITS ---
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 The patient was dialyzed through peritoneal dialysis aggressively since admission; however, we slowed down since two days ago as the patient became tachypneic and really dry. Her ABG showed respiratory alkalosis. Repeat BNP is around 1100 down from 1600 upon admission. Oxygen saturation is 100% on room air. CT of the abdomen and pelvis was also obtained to find out why there was slow drainage and nothing was found significant to cause slowing of drainage. CURRENT MEDICATIONS: 1. Acetaminophen. 2. Budesonide. 3. Diltiazem 30 mg TID . 3. Epogen. 4. Fluconazole. 5. Heparin. 6. Hydroxyzine. 7. Levalbuterol. 8. Magnesium. 9. Ondansetron. PHYSICAL EXAMINATION: General: She is asleep, son by the bedside. Vital Signs: Blood pressure 141/75. HEENT: Anicteric sclerae. Normocephalic. Neck: Supple. Extremities: No edema. LABORATORY DATA: Hemoglobin 7.7, WBC 11,000, platelet count 264,000. Sodium 135, potassium 3.4, chloride 96, CO2 of 28.1, BUN 47, creatinine 6.1, glucose 94, calcium 8.4. ASSESSMENT: 1. End-stage renal disease. 2. Volume overload secondary to ultrafiltration failure, now improved. 3. Anemia of chronic kidney disease. 4. History of hypertension. 5. Severe aortic stenosis. 6. History of right hip fracture, status post femoral neck system and closed reduction internal fixation. 7. Hypoxia, now improved. 8. Hypokalemia. PLAN: We will continue current CCPD prescription at home. The patient can be discharged. I instructed the son to do CCPD tonight using 2 red bags to increase ultrafiltration somehow. They will connect with the dialysis unit as soon as she is discharged. DT: 12:01:31 TT: 12:53:00 Ref: [id number] - TID: [id number] MTDD
--- NOTE | 2024-12-29 13:18 | ESPR_ITS ---
Documentation for date of: 12/29/24 Subjective Subjective Interval history: Patient seen and examined at the bedside. No new cardiac complaints. repeat chest abdominal pelvis CT was performed which showed mild heart failure with LV septal edema for the last and noncalcified pulmonary nodules along with atrophic paimiut kidneys and significant renal scarring. Adrenal dialysis catheter in satisfactory position and no abdominal or pelvic abscesses. A repeat EKG was done which showed possible multifocal atrial tachycardia and less likely atrial fibrillation. No need of any anticoagulation at the present moment. Patient had a questionable hemoptysis and hemoglobin is on the lower side between 7 and 8 and no need of any anticoagulation. Discussed with the primary team that the patient really needs to continue to have further evaluation dialysis sessions daily with additional fluid removal. Shortness of breath is noted previously is multifactorial. Has significant amount of anxiety for which the primary team did start her on hydroxyzine. Aggressive COPD treatment and to continue all antibiotics. Given her COPD patient recommended Cardizem 30 mg p.o. 3 times daily for now and no beta-pratik. [facility] for outpt TAVR work up. Exam Vital Signs Temp Pulse Resp BP Pulse Ox O2 Del Method O2 Flow Rate 97.8 F 66 14 149/83 H 99 Room Air 2 12/29/24 12:50 12/29/24 12:50 12/29/24 12:50 12/29/24 12:50 12/29/24 12:50 12/29/24 12:50 12/29/24 04:00 FiO2 25 12/28/24 20:00 Narrative Exam General: AOx3, moderate respiratory distress, speaks in 2-3 word sentences HEENT: NC/AT, mucous membranes moist Cardiovascular: irregular rhythm,,4/6 ESM in aortic area raditing to carotids, PSM mitral area. Pulmonary: on HFNC, mild respiratory distress, crackles auscultated bilaterally, speaks in short sentences, accessory muscle use noted Abdominal: soft, non-tender, non-distended, no rebound/guarding, normal bowel sounds present Musculoskeletal: 3+ pitting bilateral lower extremity edema Skin: warm and dry, intact, no rashes Neuro: CN II-XII intact, no focal deficits Objective Labs 12/29/24 07:37 12/29/24 07:37 ABG Interpretation ABG results: 12/26/24 12/26/24 12/26/24 08:44 15:55 18:19 ABG pH 7.42 7.46 H ABG pCO2 44 43 ABG pO2 80 L 84 ABG HCO3 29 H 30 H ABG O2 Saturation 97 98 ABG Base Excess 4 H 5 H VBG pH 7.48 VBG pCO2 39 VBG pO2 98 H VBG Base Excess 5 H 12/27/24 12/27/24 05:00 12:03 ABG pH 7.43 ABG pCO2 46 ABG pO2 83 ABG HCO3 30 H ABG O2 Saturation 98 ABG Base Excess 6 H VBG pH 7.43 VBG pCO2 41 VBG pO2 89 H VBG Base Excess 3 Assessment & Plan A&P Narrative Mrs. 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 Patient was recently discharged from the hospital after recent fall status post right femur fracture and repair in November 2024. During this admission patient was diagnosed with moderate to severe moderate to severe MR and mild MS on diastolic dysfunction by the echo. Patient was discharged home with home PT and also on Eliquis 2.5 mg twice daily for anticoagulation for DVT prophylaxis. Patient apparently developed some streaks of blood in the cough and the Eliquis was stopped. Patient continued to have worsening shortness of breath since the time of discharge and only progressed to the level that now she has orthopnea PND as well as significant shortness of breath at rest. Patient not able to speak in full sentences. On examination patient also does have at least 2+ edema more on the dependent areas. Denies any Fever or chills or cough or sputum production. Denies any chest pain chest pressure or palpitations or dizziness or syncope or fall. Has not been ambulating much since her discharge. Initial EKG showed atrial fibrillation with RVR at around 131 bpm. Review of the telemetry now shows normal sinus rhythm with frequent PACs. Chest CTA was performed which showed significant vascular congestion along with septal pulmonary edema and no evidence of any PE and 8 mm, 12 known pulmonary nodules. Chest x-ray showed recent subacute fracture of the right humerus. Labs showed severe anemia with hemoglobin of 6.6 and platelets of 486 and WBC of 10.5 INR was 1.1. Sodium 137, potassium was 3.0 and chloride of 96 and BUN of 61 creatinine of 6.6 initial troponin was 0.144 and repeat was 0.139. BNP was 1691 and previous was only in the 300s LFTs were normal albumin was low at 3.2. Blood pressure was elevated on arrival at around 150-160 mmHg. Heart rate was 131 and now better controlled around 96 bpm. She is tachypneic around 25 to 30/min and saturations are 96% on 2 L oxygen via nasal cannula Assessment and plan: 1. Shortness of breath with orthopnea and PND - multifactorial mostly secondary to fluid overload from inadequate dialysis as well as moderate severe aortic stenosis, MR and severe anemia at 6.6 with component of pulmonary hypertension 2. End-stage renal disease on peritoneal dialysis secondary to Antonia's granulomatosis for the past 4 years 3. Moderate to severe carotid stenosis but valve area less than 1 cm? 4. Moderate to severe MR 5. Antonia's granulomatosis diagnosed 25 years ago 6. History of CVA or stroke 15 years ago with residual right hemiparesis 7. Diastolic congestive heart failure 8. Essential hypertension 9. Recent fall status post right femur fracture and repair, right humeral fracture with conservative treatment 10. Pulmonary hypertension-mild to moderate 11. hyperlipidemia 12. Chronic asthma on inhalers, chronic anemia osteoarthritis, osteoporosis, GERD Patient presented with acute hypoxic respiratory failure mostly secondary to fluid overload which is multifactorial secondary to inadequate dialysis from the peritoneal dialysis, moderate to severe aortic stenosis, moderate to severe MR, severe anemia with hemoglobin of 6.6 as well as a component of mild to moderate PAH. Recommend to transfuse 2 units of PRBC first unit now and second unit after the dialysis session. Urgent peritoneal dialysis as patient cannot be transitioned to hemodialysis catheter is no tunnel dialysis catheter could be placed today. Nephrology consulted by primary team. Recommend daily dialysis for the next couple of days as patient is fluid overloaded with a BNP elevated 6091 and previously was in the 300s. CTA was negative for PE and also any kind of pneumonia. Also recommended she had complete anemia workup from the labs sent earlier this morning and not the labs after the transfusion. Recommend to give iron transfusions if the patient has low or iron deficiency anemia. Patient presented with tachycardia and questionable atrial fibrillation. Patient does show significant P waves and patient possibly has multifocal atrial tachycardia versus atrial fibrillation but now already in the telemetry patient is in normal sinus rhythm with only PACs. Recommend only beta-pratik metoprolol XL 25 mg for now and hold off on anticoagulation given the severe anemia and also recent blood-tinged hemoptysis versus emesis. Will restart anticoagulation at a later date if atrial fibrillation is confirmed. Continue to monitor telemetry. Keep potassium between 4-5 and magnesium greater than 2.0 at all times. Her most recent echo as noted below and has moderate to severe aortic stenosis with a V-max of 3.8 m/s and mean PG of 38 mmHg and aortic valve area of 0.5 cm?, moderate to severe MR, mild mitral stenosis with mean PG of 5 mmHg, moderate TR as well as diastolic dysfunction. Patient needs to continue to workup further at SAVR versus TAVR as outpatient For which she was scheduled to see me in the office next week but will await for her to recover from the recent fall and the hip fracture s/p repair. Will expect the MR to improve after the aortic valve replacement for but overall given her age and dialysis and it is not ideal to do any repair for her mitral valve regurgitation or the mild MS. 12/28/2024: Patient was seen and examined at the bedside. Had a detailed discussion with the son and the daughter at the bedside today. Respiratory status appears to be better today but still is significantly short of breath. Overall on examination today patient appears to be not significantly fluid overloaded. She received total of up to 25 hours of peritoneal dialysis since admission. Peritoneal fluid cell count performed and there was no evidence of any elevated WBC and nephrology recommended to continue peritoneal dialysis as family has reservations regarding hemodialysis as her from complications with the hemodialysis. Still continues to have some abdominal pain. She is not on oxygen today but still not able to speak in full sentences. Recommended repeat CT scan of the chest and also repeat BNP. CT scan chest pelvis and abdomen is pending. Repeat BNP still in 1100 and previous was 1600. BMP improving but her baseline BNP is less than 300 which was during the last admission. Primary team discussed about possible cardiac catheterization for the patient given the continued shortness of breath but patient is unable to lie flat and also patient is not having any acute coronary syndrome and will not require cardiac catheterization at the present point of time. Right heart catheterization will only reveal that patient is fluid overloaded and recommend to continue dialysis for now. Hence no indication for any cardiac cath at the present moment Patient continues to be short of breath and given her history of asthma patient is on beta-pratik for the questionable mat versus A-fib and will stop the beta- pratik completely to avoid significant bronchospasm and started the patient on Cardizem 30 mg every 8 hours. Continue home inhalers along with Xopenex as well as Pulmicort. No albuterol for now. Patient continues to be in sinus rhythm on telemetry with heart rate of 70 to 80 bpm. Continue to keep potassium between 4 and 5 and magnesium greater than 2 at all times. Discussed with the family at bedside in detail and she will need to follow-up patient to continue the TAVR workup. 12/28/24 repeat chest abdominal pelvis CT was performed which showed mild heart failure with LV septal edema for the last and noncalcified pulmonary nodules along with atrophic paimiut kidneys and significant renal scarring. Adrenal dialysis catheter in satisfactory position and no abdominal or pelvic abscesses. A repeat EKG was done which showed possible multifocal atrial tachycardia and less likely atrial fibrillation. No need of any anticoagulation at the present moment. Patient had a questionable hemoptysis and hemoglobin is on the lower side between 7 and 8 and no need of any anticoagulation. Discussed with the primary team that the patient really needs to continue to have further evaluation dialysis sessions daily with additional fluid removal. Shortness of breath is noted previously is multifactorial. Has significant amount of anxiety for which the primary team did start her on hydroxyzine. Aggressive COPD treatment and to continue all antibiotics. Given her COPD patient recommended Cardizem 30 mg p.o. 3 times daily for now and no beta-pratik. [facility] day for outpt TAVR work up. Management of rest of the medical conditions as per primary team and other consultants. Thank you for the consult and allowing me to participate in the care of the patient. Cardiology will continue to follow. Jori Olivares M.D. Interventional Cardiology Time Spent With Patient Time: Total time spent is greater than 50% in coordination of care (as documented) at patient's floor/unit and/or counseling patient:
--- NOTE | 2024-12-30 10:40 | PC.CC ---
called Dr. Tenorio and informd need HH orders for the pt.
--- NOTE | 2024-12-31 09:20 | PC.CM ---
Patient is opened to [facility]. They will open patient on 01/02.
--- NOTE | 2024-12-31 09:56 | PC.CM ---
[facility] accepted patient. Start of care date is 01/03.
[2025-01-02 06:21] LABS: ANCA Screen NEGATIVE (NEGATIVE); Myeloperoxidase Ab <1.0 AI (<1.0); Proteinase-3 Ab 3.2 AI (<1.0)
== END 2024-12-29 13:00 | disposition home or self-care (01) | DRG 291 ==
LOC: SERX 14:43 → SERHOLD 14:53 → S2SX 12-25 10:38 → S2NX 12-26 11:05 → S2SX 12-27 08:29
PROVIDERS: Internal Medicine Nephrology; Student in an Organized Health Care Education/Training Program; Admitting Provider Student in an Organized Health Care Education/Training Program; Emergency Provider Family Medicine; PCP Internal Medicine; Visit Provider Internal Medicine
DX: I11.0 Hypertensive heart disease with heart failure (principal); I50.33 Acute on chronic diastolic (congestive) heart failure; N18.6 End stage renal disease; J96.01 Acute respiratory failure with hypoxia; I69.351 Hemiplegia and hemiparesis following cerebral infarction affecting right dominant side; M31.31 Wegener's granulomatosis with renal involvement; E87.3 Alkalosis; K21.9 Gastro-esophageal reflux disease without esophagitis; I08.0 Rheumatic disorders of both mitral and aortic valves; M19.90 Unspecified osteoarthritis, unspecified site; D63.1 Anemia in chronic kidney disease; I65.29 Occlusion and stenosis of unspecified carotid artery; I27.20 Pulmonary hypertension, unspecified; E87.6 Hypokalemia; E78.5 Hyperlipidemia, unspecified; E83.42 Hypomagnesemia; I45.10 Unspecified right bundle-branch block; I48.91 Unspecified atrial fibrillation; J44.89 Other specified chronic obstructive pulmonary disease; G47.00 Insomnia, unspecified; M81.0 Age-related osteoporosis without current pathological fracture; F41.9 Anxiety disorder, unspecified; K29.70 Gastritis, unspecified, without bleeding; S72.001D Fracture of unspecified part of neck of right femur, subsequent encounter for closed fracture with routine healing; S42.91XD Fracture of right shoulder girdle, part unspecified, subsequent encounter for fracture with routine healing; Z87.19 Personal history of other diseases of the digestive system; Z99.2 Dependence on renal dialysis; Z79.02 Long term (current) use of antithrombotics/antiplatelets; Z79.899 Other long term (current) drug therapy; Z79.51 Long term (current) use of inhaled steroids; Z88.0 Allergy status to penicillin; W18.30XD Fall on same level, unspecified, subsequent encounter
CPT/HCPCS: 36415; 36430; 36600; 71045; 71250; 71275; 74018; 74176; 80048; 80053; 80069; 80202; 82607; 82746; 82803; 83540; 83550; 83605; 83615; 83735; 83880; 84100; 84132; 84145; 84439; 84443; 84484; 85014; 85018; 85025; 85046; 85610; 85652; 85730; 86021; 86036; 86140; 86850; 86900; 86901; 86923; 87040; 87081; 89051; 93005; 93225; 94640; 94644; 94660; 94664; 96374; 96375; 97163; 99285; A4649; A9270; J1200; J1450; J1643; J2060; J2405; J2470; J2543; J2919; J3370; J3475; J3490; P9016; Q4081; Q9967

== ENCOUNTER 2025-01-01 09:47 | Outpatient (AMB) | payer MEDICARE, MEDICAID, SELFPAY ==
--- NOTE | 2025-01-01 10:01 | PD.RESCLINIC ---
Allergies/Meds Allergies & Medications Allergies shrimp Allergy (Severe, Verified 01/01/25 10:01) Wheezing NSAIDS (Non-Steroidal Anti-Inflamma Allergy (Intermediate, Verified 01/01/25 10:01) Swelling Penicillins Allergy (Intermediate, Verified 01/01/25 10:01) Rash Medication Reconciliation clopidogrel 75 mg tablet (Plavix) 75 mg PO QDAY #30 tabs 09/24/15 [Rx Confirmed 01/01/25] atorvastatin 40 mg tablet 40 mg PO QDAY 08/15/19 [History Confirmed 01/01/25] acetaminophen 500 mg capsule 1,000 mg PO Q6H PRN Pain 09/04/19 [History Confirmed 01/01/25] calcitriol 0.25 mcg capsule 0.25 mcg PO QDAY 11/30/24 [History Confirmed 01/01/25] megestrol 400 mg/10 mL (40 mg/mL) oral suspension 40 mg PO QDAY #240 mL 12/13/24 [Rx Confirmed 01/01/25] ondansetron 4 mg disintegrating tablet 4 mg PO Q6H PRN nausea and vomiting #30 tabs 12/13/24 [Rx Confirmed 01/01/25] albuterol sulfate 90 mcg/actuation aerosol inhaler (Ventolin HFA) 2 puff inhalation QID PRN sob 30 days #2 device 12/29/24 [Rx Confirmed 01/01/25] budesonide 160 mcg-glycopyr 9 mcg-formot 4.8 mcg/actuation HFA inhaler (Breztri Aerosphere) 2 inh inhalation BID #10.7 grams 12/29/24 [Rx Confirmed 01/01/25] diltiazem HCl 30 mg tablet 30 mg PO TID 30 days #90 tabs 12/29/24 [Rx Confirmed 01/01/25] hydroxyzine HCl 25 mg tablet 50 mg (2 x 25 mg) PO BID PRN Anxiety 30 days #60 tabs 12/29/24 [Rx Confirmed 01/01/25] pantoprazole 20 mg tablet,delayed release 20 mg PO BID #60 tabs 12/29/24 [Rx Confirmed 01/01/25] MA Intake Visit Data Collection New Patient or Established: Established Patient (seen at [facility] within 3 years) Seen by Clinical Staff ONLY (RN/RAZIA): No Pain Present Currently: No Pain scale:: 0 Pain Scale Used: [place]/Numerical Satellite Specialist Required: No PCP or OBGYN visit in last 3 months: No Hx Now: No Do You Feel Safe at Home: Yes Authorities Contacted: N/A Smoking Status Smoking Status: Never smoker Are you interested in quitting?: No Would you like additional Smoking Cessation Counseling?: No For Televisit only Telemed Video/Phone Visit: Yes Verbal consent obtained for Telemed visit?: Yes Verbal Consent witness name: HERBIE JONES MA Telemed Video/Phone visit w/Clinical Staff: 21-30 min Immunization / Flu Flu Vaccine in the Last 12 Months: No Flu Vaccine Exclusion Criteria: Refused by Patient Past Medical History Past Medical History NEUROLOGIC: Positive Neurological Disorders and Cerebrovascular Accident CARDIAC: Positive Cardiac Disorders, Hypercholesterolemia, Edema and Hypertension; Negative Congestive Heart Failure RESPIRATORY: Positive Asthma; Negative Chronic Obstructive Pulmonary Disease (COPD) GASTROINTESTINAL: Positive Gastrointestinal Disorders and Gastroesophageal Reflux Disease GENITOURINARY: Positive Genitourinary Disorders, Renal Disease and Dialysis REPRODUCTIVE: Positive Previous Pregnancies MUSCULOSKELETAL: Positive Osteoporosis ENT: Positive Cataracts ENDOCRINE: Negative Diabetes Mellitus Type 1 or Diabetes Mellitus Type 2 HEMATOLOGIC: Positive Anemia; Negative Sickle Cell Disease OTHER HISTORY: Positive Hospitalization, Shingles and Chicken Pox; Negative Autoimmune Disease Family History FAMILY HISTORY: Positive Family Respiratory Disorders, Family Cardiac Disorders, Family Cancer and Family Surgery; Negative Family Psychiatric Problems, Family Gastrointestinal Problems or Family Anesthesia Reaction Social History SMOKING STATUS: Smoking status: Never smoker ALCOHOL: Alcohol Intake: Never HOUSING: Housing: House LIVES WITH: Lives With: Family Patient Portal Questionaires Social History Living Situation History Housing: House Tobacco History Smoking Status: Never smoker Alcohol History Alcohol Intake: Never Domestic Abuse History Do You Feel Safe at Home: Yes Review of Systems Report any current symptoms Only answer those that you have currently: Past Medical History Past Medical History Have you ever been diagnosed with any of the following: Neurological Problems Cerebrovascular Accident (CVA): Yes Cardiology Problems Hypercholesterolemia: Yes Congestive Heart Failure: No Edema: Yes Hypertension: Yes Respiratory Problems Chronic Obstructive Pulmonary Disease (COPD): No Asthma: Yes Stomache/Intestinal Problems Gastroesophageal Reflux Disease: Yes Genital/Urinary Problems Renal Disease: Yes Dialysis: Yes Reproductive Problems Previous Pregnancies: Yes Musculoskeletal Problems Osteoporosis: Yes Head,Eye,Nose,Throat Problems Cataracts: Yes Endocrine Problems Diabetes Mellitus Type 1: No Diabetes Mellitus Type 2: No Blood Problems Anemia: Yes Sickle Cell Disease: No Other Problems Hospitalization: Yes Autoimmune Disease: No Shingles: Yes Chicken Pox: Yes History of Present Illness HPI Narrative Tho Lee is 84 yr F with PMH of diastolic heart failure, moderate to severe aortic stenosis, moderate to severe mitral regurgitation (follows Dr. 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 Amezcua), hypertension, hyperlipidemia, CVA about 15 years ago, asthma and osteoarthritis who had tele visit today with clinic due to complaint of diarrhea. She was recently discharged from [facility] on 12/29/24 after a 5 day hospitalization receiving vancomycin, fluconazole, and Zosyn therapy for empiric SBP. Agents were discontinued early. Unsure of exact duration administered. Per daughter, patient has been having apprx 6 episodes of diarrhea in past 24hrs. Episodes had started sometime for dishcarge and still continued. Patient endorses good appetite still. Family has been giving her pedialyte. Daughter is requesting C diff testing and cholestyramine for control of symptoms. Review of Systems Review of Systems Systems Reviewed: All systems reviewed, normal except as documented Objective/Exam Narrative Physical exam: n/a, tele visit Assessment & Plan Diagnosis / Problem List (1) Clostridium difficile enterocolitis: Status: Acute Assessment & Plan: Per daughter, has been having about 6 episdoes of diarrhea in past 24 hrs. She was recently discharged from [facility] on 12/29/24 after a 5 day hospitalization receiving vancomycin, fluconazole, and Zosyn therapy for empiric SBP. Agents were discontinued early. Plan: -follow up with C dif PCR test -if negative, can start patient on cholestyramine as was recommended to family by GI. -keep hydrated and continue Pedialyte Advanced Care Planning Advance care planning discussed with:: patient Office Procedures [facility] Level of Care Nursing/Assessment Patient Status: Established Patient Nursing Assessment/Reassessment: Medication Reconciliation and Update PMH in EMR Coordination of Care: Complex Care and Chronic Disease 1-5, Consent,records obtained, informed consent, Education Simp Pt/Fam, Lab and Imaging orders and Staff clarify orders Established Patient Charge Established Patient Point Assignment: 85 Telehealth Telemed Phone/Video with patient at home & Dr,PA,MANAGER STATISTICS: Yes
== END 2025-01-01 10:20 | disposition home or self-care (01) ==
LOC: HODAHC 09:47
PROVIDERS: Supervising Provider Internal Medicine
DX: A04.72 Enterocolitis due to Clostridium difficile, not specified as recurrent (principal)
CPT/HCPCS: 99212; 99213; G0463

== ENCOUNTER 2025-03-09 07:32 | Inpatient (IN) | payer MEDICARE, MEDICAID, SELFPAY ==
[2025-03-09] VITALS (26 sets, daily range): BP systolic 92–183; BP diastolic 55–122; PULSE 99–141; RESP 12–88; TEMP 36.2–37.3; O2SAT 93–100; BMI 25.5
--- NOTE | 2025-03-09 07:46 | EKG_ITS ---
[facility] Test Date: 2025-03-09 Pat Name: WHIT TITUS Department: Room: - Gender: Female Manager Human Capital: : 1940 Requested By: Iglesia Jones Order Number: [id number] Reading MD: Iglesia Jones Measurements Intervals [place] Rate: 120 P: WI: QRS: -52 QRSD: 127 T: 35 QT: 350 QTc: 495 Interpretive Statements ATRIAL FIBRILLATION WITH RAPID VENTRICULAR RESPONSE RIGHT BUNDLE BRANCH BLOCK [120+ ms QRS DURATION, UPRIGHT V1, 40+ ms S IN I/aVL/V4/V5/V6] LEFT ANTERIOR FASCICULAR BLOCK [QRS AXIS <= -45, QR IN I, RS IN II] VOLTAGE CRITERIA FOR LVH [MEETS CRITERIA IN ONE OF: R(aVL), S(V1), R(V5), R(V5/V6)+S(V1)] ANTERIOR MYOCARDIAL INFARCTION , OF INDETERMINATE AGE [40+ ms Q WAVE AND/OR ST/T ABNORMALITY IN V3/V4] Compared to ECG 12/24/2024 10:26:26 Right bundle-branch block now present Myocardial infarct finding now present Incomplete right bundle-branch block no longer present T-wave abnormality no longer present /store/S0/[id number].pdf
--- NOTE | 2025-03-09 07:50 | XR_ITS ---
Examination: AP chest single view Technique one AP portable semiupright chest single view Date and time: March 09, 2025 0827 hrs. Comparison December 27, 2024 Indications: Shortness of breath today Findings: Mild chronic heart failure pattern Moderate enlargement cardiac contour with prominent vascular congestion No lobar pneumonia Impression: Mild chronic heart failure pattern.
--- NOTE | 2025-03-09 08:02 | EDNOTE_ITS ---
ED SOB =RME/HPI General Chief Complaint: Shortness of Breath/Dyspnea Stated Complaint: SOB Time Seen by Provider: 03/09/25 07:46 Arrival date/time: 03/09/25 07:32 Limitations: no limitations RME / HPI RME / HPI Narrative: DR. HOLLINS MAIN ED EVALUATION: 84 year old female presents to the Emergency Department [facility] with complaint of increased shortness of breath since yesterday. Per daughter, she has given prednisone but it irritated her stomach. Daughter also has given breathing treatment at home without any relief and patient wanted to come in. Associated symptoms include a cough. No fevers, chills, chest pain, or other symptoms at this time. PMHx: End-stage renal disease 2/2 Antonia's on peritoneal dialysis followed by general machine operator Dr. Leo, hypertension, hyperlipidemia, diastolic heart failure, diastolic heart failure, CVA 15 years ago, asthma, and osteoarthritis. Patient was recently admitted for a closed fracture of neck of right femur and discharged on 12/07/24; had a surgical fixation of the right hip on 12/01/24 due to subcapital fracture of the right hip by Dr. Lee. Social Hx: No tobacco, alcohol, or substance use. Related Data Home Medications ?Medication ?Instructions ?Recorded ?Confirmed atorvastatin 40 mg tablet 40 mg PO QDAY 08/15/1901/01 acetaminophen 500 mg capsule 1,000 mg PO Q6H PRN Pain 09/04/19 01/01/25 calcitriol 0.25 mcg capsule 0.25 mcg PO QDAY 11/30/24 01/01/25 Previous Rx's ?Medication ?Instructions ?Recorded clopidogrel 75 mg tablet (Plavix) 75 mg PO QDAY #30 ta bs 09/24/15 megestrol 400 mg/10 mL (40 mg/mL) 40 mg PO QDAY #240 m L 12/13/24 oral suspension ondansetron 4 mg disintegrating 4 mg PO Q6H PRN nausea and 12/13/24 tablet vomiting #30 tabs albuterol sulfate 90 mcg/actuation 2 puff inhalation Q ID PRN sob 30 12/29/24 aerosol inhaler (Ventolin HFA) days #2 device budesonide 160 mcg-glycopyr 9 2 inh inhalation BID #10 .7 grams 12/29/24 mcg-formot 4.8 mcg/actuation HFA inhaler (Breztri Aerosphere) pantoprazole 20 mg tablet,delayed 20 mg PO BID #60 tab s 12/29/24 release cholestyramine (with sugar) 4 gram 4 g PO TID PRN diar ferdinand #21 ea 01/01/25 powder for susp in a packet Allergies Allergy/AdvReac Type Severity Reaction Status Date / Time shrimp Allergy Severe Wheezing Verified 01/01/25 10:01 NSAIDS (Non-Steroidal Allergy Intermediate Swelling Verified 01/01/25 10:01 Anti-Inflamma Penicillins Allergy Intermediate Rash Verified 01/01/25 10:01 Review of Systems Review of Systems Systems Reviewed: All systems reviewed, normal except as documented Past Medical History Past Medical History NEUROLOGIC: Positive Neurological Disorders and Cerebrovascular Accident CARDIAC: Positive Cardiac Disorders, Hypercholesterolemia, Edema and Hypertension RESPIRATORY: Positive Asthma GASTROINTESTINAL: Positive Gastrointestinal Disorders and Gastroesophageal Reflux Disease GENITOURINARY: Positive Genitourinary Disorders, Renal Disease and Dialysis (PERITONEAL DIALYSIS) REPRODUCTIVE: Positive Previous Pregnancies MUSCULOSKELETAL: Positive Musculoskeletal Disorders and Osteoporosis ENT: Positive Cataracts HEMATOLOGIC: Positive Anemia OTHER HISTORY: Positive Hospitalization, Shingles and Chicken Pox Family History FAMILY HISTORY: Positive Family Respiratory Disorders, Family Cardiac Disorders, Family Cancer and Family Surgery Social History SMOKING STATUS: Never smoker SUBSTANCE USE: does not use ALCOHOL: Never ED Exam General Limitations: Present no limitations General appearance: Present alert Head Head exam: Present atraumatic, normocephalic and normal inspection Eye Eye exam: Present normal appearance, PERRL and EOMI ENT ENT exam: Present normal exam, normal oropharynx and mucous membranes moist Neck Neck exam: Present normal inspection, full ROM and trachea midline Chest Chest inspection: Present normal inspection and symmetric chest wall rise Respiratory Respiratory exam: Present wheezes (wheezing throughout the mid to lower lobes) and other (no rhonchi or crackles) Cardiovascular Cardiovascular exam: Present tachycardia and irregular rhythm; Absent systolic murmur or diastolic murmur Abdominal Exam Abdominal exam: Present soft and normal bowel sounds Extremities Exam Extremities exam: Present normal inspection and full ROM Back Exam Back exam: Present normal inspection and full ROM Neurological Exam Neurological exam: Present alert, oriented X3 and CN II-XII intact Psychiatric Psychiatric exam: Present normal affect and normal mood Skin Skin exam: Present warm, dry, intact and normal color Course Quality Measures none Orders Category Date Time Status Bedside COVID-19 Antigen Test NOW Care 03/09/25 13:23 Active COVID-19 Screening Questionnaire NOW Care 03/09/25 13:37 Active Decision to Admit X1 Care 03/09/25 13:36 Active EKG (ED ONLY) *Do not use* NOW Care 03/09/25 07:46 Completed Insert [Insert IV] NOW Care 03/09/25 07:46 Active Diet Regular Diet 03/09/25 Lunch Active Diet Regular Diet 03/09/25 Lunch Completed CXRP [XR chest 1V portable] Stat Exams 03/09/25 07:50 Completed EKG (ED Only) Stat Exams 03/09/25 07:46 Draft B-Type Natriuretic Peptide Stat Lab 03/09/25 07:50 Completed Blood Culture (Lab) Stat Lab 03/09/25 08:25 Received CBC Stat Lab 03/09/25 07:50 Completed Comprehensive Metabolic Panel Stat Lab 03/09/25 07:50 Completed Lactic Acid [Lactate (Lactic Acid)] Stat Lab 03/09/25 07:50 Completed Lactic Acid, 3 HR Stat Lab 03/09/25 11:28 Completed Magnesium Stat Lab 03/09/25 07:50 Completed Partial Thromboplastin Time Stat Lab 03/09/25 07:50 Completed Prothrombin Time with INR Stat Lab 03/09/25 07:50 Completed Troponin I Stat Lab 03/09/25 07:50 Completed Troponin I Stat Lab 03/09/25 12:28 Completed Urinalysis Stat Lab 03/09/25 07:46 Ordered Venous Blood Gas Stat Lab 03/09/25 07:50 Completed ALBUTEROL RT 3ml [Proventil Rt 3ml] Med 03/09/25 07:46 Discontinued 5 mg INH X1 ONE Diltiazem Cd [Cardizem Cd] Med 03/09/25 07:46 Discontinued 240 mg PO X1 ONE Famotidine Inj [Pepcid Inj] Med 03/09/25 07:46 Discontinued 20 mg IVP X1 ONE Levalbuterol Rt [Xopenex Rt Annika] Med 03/09/25 12:14 Discontinued 1.25 mg INH X1 ONE MethylPREDNISolone.* [SoluMEDROL Inj] Med 03/09/25 07:46 Discontinued 125 mg IVP X1 ONE Pantoprazole Inj [Protonix Inj] Med 03/09/25 07:46 Discontinued 40 mg IVP X1 ONE Sodium Chloride 0.9% 500 ml [Ns] 500 ml Med 03/09/25 07:46 Discontinued IV 999 mls/hr Sodium Chloride Rt Annika 0.9% [NS Rt Annika 0.9%] Med 03/09/25 12:15 Discontinued 3 ml INH X1 ONE Sucralfate Susp [Carafate Susp] Med 03/09/25 07:46 Discontinued 1 gm PO X1 ONE BiPAP / CPAP NEEDED RT 03/09/25 08:00 Completed BiPAP / CPAP NOW RT 03/09/25 08:00 Active Vital Signs Vital signs: Vital Signs Temperature 99.1 F 03/09/25 07:46 Pulse Rate 132 H 03/09/25 07:46 Respiratory Rate 26 H 03/09/25 07:46 Blood Pressure 166/122 H 03/09/25 07:46 Pulse Oximetry (%) 100 03/09/25 07:46 Oxygen Delivery Method Nasal Cannula 03/09/25 07:46 Oxygen Flow Rate 3 03/09/25 07:46 Shortness of Breath / Dyspnea MDM Narrative MDM Narrative:: I, Leonora Shepherd, am scribing for and in the presence of Dr. Hollins. Patient data External records reviewed:: [facility] previous records and EMS form Clinical information provided by:: patient, EMS and family Social determinants that could affect healthcare access:: none Patient has the following chronic illnesses:: End-stage renal disease 2/2 Antonia's on peritoneal dialysis followed by general machine operator Dr. Leo, hypertension, hyperlipidemia, diastolic heart failure, diastolic heart failure, CVA 15 years ago, asthma, and osteoarthritis. Patient was recently admitted for a closed fracture of neck of right femur and discharged on 12/07/24; had a surgical fixation of the right hip on 12/01/24 due to subcapital fracture of the right hip by Dr. Lee. How is presenting disease/condition affected by chronic disease/condition?: exacerbated by Evaluation data The following diagnostics were reviewed and interpreted by me:: lab results, radiology exam(s) and EKG tracing(s) (My interpretation: EKG performed at 0805 hours, atrial fibrillation, rate 120, right bundle branch block, artifact, LVH) Lab and/or radiology exams considered but not ordered:: none Interpretation Summary: Procedure(s): XR chest 1V portable Accession Number(s): [id number] cc: Iglesia Hollins MD; Henok Mray MD; MIKE WOODRUFF~ Examination: AP chest single view Technique one AP portable semiupright chest single view Date and time: March 09, 2025 0827 hrs. Comparison December 27, 2024 Indications: Shortness of breath today Findings: Mild chronic heart failure pattern Moderate enlargement cardiac contour with prominent vascular congestion No lobar pneumonia Impression: Mild chronic heart failure pattern. Dictated By: Henok Mary MD Medications / Prescriptions Medications or Prescriptions considered but not ordered:: none Medication administrations:: Medication Administration History Discontinued Medications Albuterol (Albuterol Rt 2.5 Mg/3 Ml Nebu) 5 mg INH X1 ONE Stop: 03/09/25 07:47 Last Admin: 03/09/25 08:32 Dose: 5 mg Documented By: ESTHELA Diltiazem HCl (Diltiazem Cd 120 Mg Capcr) 240 mg PO X1 ONE Stop: 03/09/25 07:47 Last Admin: 03/09/25 09:41 Dose: 240 mg Documented By: LEONCIO Famotidine (Famotidine Inj 10 Mg/Ml Vial 2 Ml) 20 mg IVP X1 ONE Stop: 03/09/25 07:47 Last Admin: 03/09/25 08:15 Dose: 20 mg Documented By: ENE Sodium Chloride (Ns) 500 mls @ 999 mls/hr IV .Q31M ONE Stop: 03/09/25 08:16 Last Infusion: 03/09/25 08:19 Dose: 0 mls/hr Documented By: Admin: 03/09/25 08:09 Dose: 999 mls/hr Documented By: ENE Levalbuterol HCl (Levalbuterol Rt 1.25 Mg/0.5 Ml Nebu) 1.25 mg INH X1 ONE Stop: 03/09/25 12:15 Last Admin: 03/09/25 13:16 Dose: 1.25 mg Documented By: ESTHELA Methylprednisolone Sodium Succinate (Methylprednisolone Sod Succ 62.5 Mg/Ml 2ml Vial) 125 mg IVP X1 ONE Stop: 03/09/25 07:47 Last Admin: 03/09/25 08:13 Dose: 125 mg Documented By: ENE Pantoprazole Sodium (Pantoprazole Inj 40 Mg Vial) 40 mg IVP X1 ONE Stop: 03/09/25 07:47 Last Admin: 03/09/25 08:10 Dose: 40 mg Documented By: ENE Sodium Chloride (Sodium Chloride Rt Annika 0.9% 3 Ml Nebu) 3 ml INH X1 ONE Stop: 03/09/25 12:16 Last Admin: 03/09/25 13:17 Dose: 3 ml Documented By: ESTHELA Sucralfate (Sucralfate Susp 1 Gm/10 Ml Udc) 1 gm PO X1 ONE Stop: 03/09/25 07:47 Last Admin: 03/09/25 09:41 Dose: 1 gm Documented By: LEONCIO see above Consultations Consultation(s) initiated? (list below): Yes Consultation #1 (Physician, Specialty, Details): Discussed test HPI, PMHx, lab, radiology results and/or management with resident working with the hospitalist. Will admit for further evaluation and management. Accepts patient for admission. Time: 13:55 Diagnosis Shortness of Breath Differential Diagnosis: acute exacerbation of chronic obstructive airways disease, community acquired pneumonia, asthma with exacerbation and pulmonary embolism Most likely diagnosis given after review of the tests above:: Respiratory failure Exacerbation of asthma ESRD Compensated CHF Admission Indicated Admission indicated?: indicated Admission Request Was there a request for admission?: Yes Admission Attestation Admission request attestation: Discussed case with [] from Hospitalist service regarding admission. Discussed patients ED course, exam findings, labs, and radiology results. The Hospitalist [agrees,declines] to accept the patient for admission. Disposition Plan Disposition Plan: Admit Discharge Plan Plan Patient Disposition: Admit Acute Care w/in Hospital Prescriptions/Referrals Prescriptions/Med Rec: No Action megestrol 400 mg/10 mL (40 mg/mL) suspension 40 mg PO QDAY Qty: 240 0RF ondansetron 4 mg tablet,disintegrating 4 mg PO Q6H PRN (Reason: nausea and vomiting) Qty: 30 0RF Rx Instructions: disintegrating tablet cholestyramine (with sugar) 4 gram powder in packet 4 g PO TID PRN (Reason: diarrhea ) Qty: 21 0RF Rx Instructions: administer w/meal; avoid other meds within 1hr before or 4-6hr after dose Titrate to bowel movements as needed. clopidogrel [Plavix] 75 MG tablet 75 mg PO QDAY Qty: 30 0RF acetaminophen 500 mg Capsule 1,000 mg PO Q6H PRN (Reason: Pain) atorvastatin 40 mg Tablet 40 mg PO QDAY calcitriol 0.25 mcg capsule 0.25 mcg PO QDAY Nevilletri Aerosphere 160-9-4.8 mcg/actuation HFA aerosol inhaler 2 inh inhalation BID Qty: 10.7 3RF albuterol sulfate [Ventolin HFA] 90 mcg/actuation Hfa Aerosol Inhaler 2 puff INHALATION QID PRN (Reason: sob) 30 Days Qty: 2 0RF pantoprazole 20 mg tablet,delayed release (DR/EC) 20 mg PO BID Qty: 60 0RF Referrals: Mike Woodruff [Primary Care Provider] - In 1 week Problem List Clinical Impression: Respiratory failure, Asthma exacerbation, ESRD (end stage renal disease), Compensated heart failure Impression comment: compensated CHF Patient/Caregiver Discharge Instructions Print Language: Polish Stand Alone Forms: Saranya Award Info., Patient Portal Info Letter
[2025-03-09] MEDS: SODIUM CHLORIDE 0.9% 500 ML 500 ML 999 ML IV (08:09)
[2025-03-09] MEDS: MethylPREDNISolone SOD SUCC 62.5 MG/ML 2ML VIAL 125 MG IVP (08:13)
[2025-03-09] MEDS: FAMOTIDINE INJ 10 MG/ML VIAL 2 ML 20 MG IVP (08:15)
[2025-03-09 08:21] LABS: Lactate (Lactic Acid) 3.7 mMol/L (0.4-2.0)
[2025-03-09 08:22] LABS: Base Excess, Venous 4 (-3-3); O2 Saturation, Venous 93 % (96-97); PCO2, Venous 49 mmHg (36-56); PO2, Venous 70 mmHg (15-58); pH, Venous 7.39 (7.33-7.66)
[2025-03-09] MEDS: ALBUTEROL RT 2.5 MG/3 ML NEBU 5 MG INH (08:32)
[2025-03-09 08:39] LABS: Basophils # (Auto) 0.0 Thou/mm3 (0.0-0.2); Basophils % (Auto) 0 % (0-2.5); Eosinophils # (Auto) 0.0 Thou/mm3 (0.0-0.5); Eosinophils % (Auto) 0 % (0-10); Hematocrit 34.6 % (36.0-46.0); Hemoglobin 11.9 g/dL (12.0-16.0); Immature Granulocytes Auto 0.07 Thou/mm3 (0.00-0.00); Lymphocytes # (Auto) 1.1 Thou/mm3 (1.0-4.8); Lymphocytes % (Auto) 11 % (10-50); Mean Corpuscular HGB Conc 34.4 g/dl (31.0-37.0); Mean Corpuscular Hemoglobin 30.2 pg (25.0-35.0); Mean Corpuscular Volume 88 fL (80-100); Monocytes # (Auto) 0.6 Thou/mm3 (0.0-0.8); Monocytes % (Auto) 6 % (0-12); Neutrophils # (Auto) 8.5 Thou/mm3 (1.8-7.7); Neutrophils % (Auto) 82 % (37-80); Nucleated Red Blood Cell # 0.00 Thou/mm3 (0.00-0.00); Nucleated Red Blood Cell % 0 /100 WBC (0); Platelet Count 361 Thou/mm3 (140-440); RDW Standard Deviation 49.7 fL (36.4-46.3); Red Blood Count 3.94 Miln/mm3 (4.00-5.20); White Blood Count 10.3 Thou/mm3 (3.6-11.0)
[2025-03-09 08:47] LABS: Alanine Aminotransferase 46 U/L (10-49); Albumin, Serum 4.1 gm/dL (3.4-4.8); Albumin/Globulin Ratio 1.3 (1.2-2.2); Alkaline Phosphatase 98 U/L (46-116); Anion Gap 13 (7-16); Aspartate Amino Transferase 46 U/L (0-34); BUN/Creatinine Ratio 8 Ratio (12-20); Bilirubin,Total 0.2 mg/dL (0.3-1.2); Blood Urea Nitrogen 56 mg/dL (9-23); Calcium 10.0 mg/dL (8.3-10.6); Calcium (Corrected) 10.0 mg/dL (8.5-10.1); Carbon Dioxide 28.9 mMol/L (20.0-31.0); Chloride 91 mMol/L (98-107); Creatinine (Component) 6.9 mg/dL (0.6-1.3); Estimated Creatinine Clearance 4.3 mL/min (>60); Globulin 3.1 gm/dL (2.3-3.5); Glucose 156 mg/dL (74-106); Magnesium 1.9 mg/dL (1.6-2.6); Osmolality,Calculated 284 (275-295); Potassium 4.4 mMol/L (3.4-5.1); Sodium 133 mMol/L (136-145); Total Protein 7.2 gm/dL (5.7-8.2); eGFR 6 See Note
[2025-03-09 08:48] LABS: INR 1.0 (0.9-1.3); Partial Thromboplastin Time 21.1 Seconds (22.0-36.0); Prothrombin Time 10.8 Seconds (9.0-12.2)
[2025-03-09 08:51] LABS: Troponin I 0.134 ng/mL (0.0-0.045)
[2025-03-09 09:20] LABS: B-Type Natriuretic Peptide 345 pg/mL (0-100)
[2025-03-09] MEDS: DILTIAZEM CD 120 MG CAPCR 240 MG PO (09:41)
[2025-03-09] MEDS: SUCRALFATE SUSP 1 GM/10 ML UDC PO (09:41)
--- NOTE | 2025-03-09 10:34 | PC.CC ---
ED Animal Shelter Worker assisted [place] hat marker Elaine Chau with completion of APS report for Pt. APS report was faxed to APS [phone] and copies of report will be placed in Pt chart. PPD - PPD Officer badge number [id number].
[2025-03-09 11:17] LABS: Reflex Lactate? Y
--- NOTE | 2025-03-09 11:30 | PC.NURSE ---
Pt SPO2 drop down to 88% on 2l, Pt requested to be place back on Bi-pap which help increase her spo2 to 98%.
[2025-03-09 11:31] LABS: Lactic Acid, 3 HR 2.9 mMol/L (0.4-2.0)
[2025-03-09 13:02] LABS: Troponin I 0.143 ng/mL (0.0-0.045)
[2025-03-09] MEDS: LEVALBUTEROL RT 1.25 MG/0.5 ML NEBU INH ×2 (13:16→18:09)
[2025-03-09] MEDS: SODIUM CHLORIDE RT SOL 0.9% 3 ML NEBU INH ×2 (13:17→18:09)
[2025-03-09 14:12] LABS: Lactate (Lactic Acid) 2.8 mMol/L (0.4-2.0)
[2025-03-09 14:48] LABS: Albumin, Serum 4.0 gm/dL (3.4-4.8); Anion Gap 15 (7-16); BUN/Creatinine Ratio 7 Ratio (12-20); Blood Urea Nitrogen 51 mg/dL (9-23); Calcium 9.8 mg/dL (8.3-10.6); Calcium (Corrected) 9.8 mg/dL (8.5-10.1); Carbon Dioxide 26.2 mMol/L (20.0-31.0); Chloride 90 mMol/L (98-107); Creatinine (Component) 7.3 mg/dL (0.6-1.3); Estimated Creatinine Clearance 4.1 mL/min (>60); Glucose 142 mg/dL (74-106); Osmolality,Calculated 278 (275-295); Phosphorous 3.8 mg/dL (2.4-5.1); Potassium 4.6 mMol/L (3.4-5.1); Sodium 131 mMol/L (136-145); eGFR 5 See Note
[2025-03-09] MEDS: Magnesium Sulfate 2 GM Ivpb 2 GM/50 ML BAG IV ×2 (14:58→19:17)
--- NOTE | 2025-03-09 15:58 | ESHP_ITS ---
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 Patient presented to the ED with a two day history of worsening shortness of breath. Per the patient, she has not experienced an respiratory exacerbation as severe as this episode. Patient continued to deny fever, chills, and chest pain. History was limited from the patient due to use of BiPAP. Per the patient's daughter, patient has tried breathing treatments at home with little to no improvement and Predinisone. Per daughter at bedside, single episode of emesis that appeared coffee ground, non reported since 2 days ago-will hold Plavix for now. Per daughter at bedside recent upper respiratory viral illness about one week ago that likely triggered this respiratory exacerbation. Previous asthma exacerbations triggered by URI and heighten emotional stress. ER Course: On presentation to the ED, vitals: BP 166/122, pulse 132, respiratory 26, O2 sat 100 on 3 L nasal cannula, Temp 99.1. Patient was brought to the ED via EMS after her family noticed her wheezing while receiving dialysis. Patient endorsed cough. Patient denied fever, chills, and chest pain. Patient was started on BiPAP. CXR demonstrated mild chronic heart failure pattern, moderate cardiac silhouette enlargement, and vascular congestion. Pertinent labs include BNP 345, WBC 10.3, and lactic acid 2.8. Medication: Methy PMHx: same as above Home medications: Albuterol Sulfate Inhaler, Budesonide 160 mcg-glycopyr 9 mcg- formot, Clopidogrel 75 mg, Diltiazem 240 mg extended realease, Ondansetron mg, Pantoprazole 20 mg, hydroxyzine 25 mg once daily PSHx: Hip fracture repair 12/01/2024 SH: Denies alcohol and tobacco usage; 30 min walk daily Allergies: Shrimp (wheezing), NSAIDs (swelling), Penicillins (rash) FH: Diabetes, heart problems via father Code status: Full code Review of Systems Review of Systems Narrative Review of Systems: General appearance: NO weight change, NO fatigue, NO weakness, NO fever, NO chills, NO night sweats, YES cough, per daughter at beside-recent URI. Skin: NO rash, NO itching, NO sores, NO moles HEENT: NO Trauma, NO nausea, NO vomiting, NO visual changes, NO blurry vision, NO double vision, NO tinnitus, NO vertigo, NO ear discharge, NO rhinorrhea, NO stuffiness, NO sneezing, NO allergy, NO epistaxis. NO Hoarseness, NO sore throat, NO swollen neck. Cardiac: NO Palpitations, NO dyspnea on exertion, NO orthopnea, NO paroxysmal nocturnal dyspnea, NO edema Respiratory: YES Shortness of Breath, YES Wheezing, YES Cough, NO Sputum, NO hemoptysis GI:NO appetite, NO nausea, YES vomiting, NO dysphagia, NO changes in bowel frequency, NO stool color, NO diarrhea, NO constipation, YES hemetemesis-coffee ground emesis, NO hemorrhoids, NO melena, NO hematechezia, NO abdominal pain, NO jaundice Renal: NO frequency, NO hesitancy, NO urgency, NO hematuria, NO nocturia, NO incontinence MSK: NO muscle weakness, NO gout, NO arthritis, NO muscle stiffness Neuro: NO headaches, NO tremors, NO weakness, NO paralysis, NO seizures, NO loss of consciousness, NO numbness. Hem: NO anemia, NO easy bruising/bleeding, NO petechiae, NO purpura Endo: NO heat/cold intolerance, NO excessive sweating, NO polyuria, NO polydipsia, NO polyphagia, NO thyroid problems, NO diabetes Pysch: NO mood, NO anxiety, NO depression Constitutional Constitutional: Reports system reviewed and no additional complaints, except as documented Cardiovascular Cardiovascular: Reports dyspnea and Reports dyspnea on exertion Respiratory Respiratory: Reports cough, Reports dyspnea, Reports dyspnea on exertion and Reports wheezing Allergic/Immunologic Allergic/Immunologic: Reports wheezing Exam Vital Signs Temp Pulse Resp BP Pulse Ox O2 Del Method O2 Flow Rate 99.1 F 120 H 17 92/78 98 BiPAP 30 03/09/25 07:46 03/09/25 13:18 03/09/25 13:18 03/09/25 12:20 03/09/25 13:18 03/09/25 12:20 03/09/25 13:18 FiO2 30 03/09/25 13:18 Narrative Exam General Appearance: Alert & Oriented X3, well-nourished female who is lying in bed in no acute distress HEENT: Skull symmetrical and atraumatic. Conjunctivae pikn and moist. Pupils equal, round, reactive to light and accommodation (PERRL). External ear without lesion or discharge. Straight, nares patient, mucosa pink, no discharge. No thyroid nodule appreciated. No cervical lymphadenopathy. Cardio: Tachycardic Rate and Rhythm with S1 and S2 heart sounds. possible systolic murmur noted, difficult to distinguish given rhonchi. No bruits on carotid auscultation. No peripheral edema or cyanosis. Lungs: Symmetric, rapid, respiratory rate, tachypnea. Chest and back non-tender. Reduced breath sounds vesicular with diffuse rhonchi & wheezing bilaterally. Abdomen: Non-tender, Non-distended, Normal Reactive Bowel Sounds Neuro: Alert, cooperative, oriented to person, place, and time. Speech clear. CN grossly intact. Upper motor strength 5/5 and Lower motor strength 5/5. Sensation intact. Results: Labs 03/16/25 03:16 03/16/25 03:16 Labs: Short CBC 03/09/25 Range/Units 07:50 WBC 10.3 (3.6-11.0) Thou/mm3 Hgb 11.9 L (12.0-16.0) g/dL Hct 34.6 L (36.0-46.0) % Plt Count 361 (140-440) Thou/mm3 BMP 03/09/25 03/09/25 07:50 14:05 Sodium 133 L 131 L Potassium 4.4 4.6 Chloride 91 L 90 L Carbon Dioxide 28.9 26.2 BUN 56 H 51 H Creatinine 6.9 H* 7.3 H* Glucose 156 H 142 H Calcium 10.0 9.8 Cardiac Enzymes 03/09/25 03/09/25 Range/Units 07:50 12:28 Troponin I 0.134 H* 0.143 H* (0.0-0.045) ng/mL Liver Function 03/09/25 03/09/25 Range/Units 07:50 14:05 Total Bilirubin 0.2 L (0.3-1.2) mg/dL AST 46 H (0-34) U/L ALT 46 (10-49) U/L Alkaline Phosphatase 98 (46-116) U/L Albumin 4.1 4.0 (3.4-4.8) gm/dL ABG Interpretation ABG results: 03/09/25 07:50 VBG pH 7.39 VBG pCO2 49 VBG pO2 70 H VBG Base Excess 4 H Quality Measures Quality Measures none Advance care planning discussed with:: patient and child Medications Home Medications and Allergies Home Medications ?Medication ?Instructions ?Recorded ?Confirmed ?Type atorvastatin 40 mg tablet 40 mg PO QDAY 08/15/1903/11 History acetaminophen 325 mg tablet 650 mg PO Q6H PRN fever or pain 03/11/25 03/11/25 History (Tactinal) diltiazem HCl 240 mg 240 mg PO DAILY 03/11/2502/28 History capsule,extended release 24 hr Allergies Allergy/AdvReac Type Severity Reaction Status Date / Time shrimp Allergy Severe Wheezing Verified 01/01/25 10:01 NSAIDS (Non-Steroidal Allergy Intermediate Swelling Verified 01/01/25 10:01 Anti-Inflamma Penicillins Allergy Intermediate Rash Verified 01/01/25 10:01 Visit Medications Acetaminophen (Acetaminophen 325 Mg Tablet) 650 mg PO Q6H PRN PRN Reason: Mild Pain(1-3) or Fever >100.3 Stop: 04/08/25 14:40 Hydrocodone Bitart/Acetaminophen (Hydrocodone/Apap 5/325 Tablet) 1 tab PO Q4HR PRN PRN Reason: PAIN SCALE 4-10(Mod-Sev Stop: 03/14/25 14:40 Heparin Sodium (Porcine) (Heparin Sod Inj 5000 Unit/Ml Vial) 5,000 unit SC BID SABRINA Stop: 03/23/25 20:59 Magnesium Sulfate (Magnesium Sulfate Ivpb) 2 gm in 50 mls @ 25 mls/hr IV X1 ONE Stop: 03/09/25 16:48 Last Admin: 03/09/25 14:58 Dose: 25 mls/hr Ondansetron HCl (Ondansetron Inj 2 Mg/Ml Inj 2 Ml) 4 mg IVP Q6H PRN; Protocol PRN Reason: NAUSEA OR VOMITING Stop: 04/08/25 14:40 Pantoprazole Sodium (Pantoprazole 40 Mg Tablet) 40 mg PO QDAY SABRINA Stop: 04/09/25 08:59 Sennosides (Senna Tablet) 1 tab PO QDAY SABRINA; Protocol Stop: 04/09/25 08:59 Discontinued Medications Albuterol (Albuterol Rt 2.5 Mg/3 Ml Nebu) 5 mg INH X1 ONE Stop: 03/09/25 07:47 Last Admin: 03/09/25 08:32 Dose: 5 mg Diltiazem HCl (Diltiazem Cd 120 Mg Capcr) 240 mg PO X1 ONE Stop: 03/09/25 07:47 Last Admin: 03/09/25 09:41 Dose: 240 mg Famotidine (Famotidine Inj 10 Mg/Ml Vial 2 Ml) 20 mg IVP X1 ONE Stop: 03/09/25 07:47 Last Admin: 03/09/25 08:15 Dose: 20 mg Sodium Chloride (Ns) 500 mls @ 999 mls/hr IV .Q31M ONE Stop: 03/09/25 08:16 Last Infusion: 03/09/25 08:19 Dose: 0 mls/hr Levalbuterol HCl (Levalbuterol Rt 1.25 Mg/0.5 Ml Nebu) 1.25 mg INH X1 ONE Stop: 03/09/25 12:15 Last Admin: 03/09/25 13:16 Dose: 1.25 mg Methylprednisolone Sodium Succinate (Methylprednisolone Sod Succ 62.5 Mg/Ml 2ml Vial) 125 mg IVP X1 ONE Stop: 03/09/25 07:47 Last Admin: 03/09/25 08:13 Dose: 125 mg Methylprednisolone Sodium Succinate (Methylprednisolone Sod Succ 40 Mg Vial) 120 mg IVP X1 ONE Stop: 03/09/25 14:49 Last Admin: 03/09/25 14:57 Dose: 120 mg Pantoprazole Sodium (Pantoprazole Inj 40 Mg Vial) 40 mg IVP X1 ONE Stop: 03/09/25 07:47 Last Admin: 03/09/25 08:10 Dose: 40 mg Sodium Chloride (Sodium Chloride Rt Annika 0.9% 3 Ml Nebu) 3 ml INH X1 ONE Stop: 03/09/25 12:16 Last Admin: 03/09/25 13:17 Dose: 3 ml Sucralfate (Sucralfate Susp 1 Gm/10 Ml Udc) 1 gm PO X1 ONE Stop: 03/09/25 07:47 Last Admin: 03/09/25 09:41 Dose: 1 gm Assessment & Plan Plan Patient is an 84-year-old female with a past medical history CHF HFpEF 55 to 60% (11/23/2024), systolic dysfunction, moderate PAH 55, moderate to severe with V-max 3.8, ESRD status post peritoneal dialysis dialysis, chronic asthma since early 20s, 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 #Acute hypoxic respiratory failure secondary to asthma exacerbation #Acute on Chronic Asthma exacerbation #Granulomatosis w/ Polyangiitis-formerly known as Antonia's Patient presented to the ED via EMS with a two day history of worsening shortness of breath. Patient's family noticed the patient wheezing while receiving dialysis and called EMS. While in the emergency room department, several episode of spO2 80s on nasal cannula-->transitioned to Bipap. While in ER, increased work of breathing, RR high 30s/40s with abdominal breathing noted, increase in FiO 10-->30. Repeat ABG pH 7.45, pO2 289, HC03 27-->decrease in FIO2 to 20. Daughter at bedside noted an URI several days ago and is concern this may have triggered current exacerbation. Plan: -Continue BiPAP-->consider transition to high flow -Administered methylprednisilone 120 mg IVP and MG 2g IV X2 (after admission) -Started Levalbuterol and Ipratropium 0.5 mg PRN -60 mg IVP TID tomorrow -Azithromycin (03/10/2025--) -May benefit from Pul, consult given history of vasculities but no infiltrates noted on cxr. -Consider MORRIS levels/ESR to determine possible exacerbation as relapses with Antonia are common, specially with reported coffee ground emesis -If condition worsens, repeat ABG. #Acute on Chronic Congestive Heart Failure #CHF HFpEF 55-60% (11/2024) #Mild Pulmonary Vascular Congestion #Moderate to Severe Aortic Stenosis, AV vmax 3.8 m #Severe Mitral Regurgitation #Moderate PAH, 55 mmHg Patient likely acute on chronic congestive heart failure this, may only be mild exacerbation as pulmonary vascular congestion was less prominent as compared to other episode. Current BNP of 345 vs previous CHF exacerbation of 1691.Acute on chronic CHF exacerbation likely triggered by asthma exacerbation. -BNP 345 -Chest x-ray (03/10/2025): Mild chronic heart failure pattern, prominent vascular congestion-overall mild chornic heart failure Echo completed 11/30/24:Normal LV size and function. EF 55-60%. Diastolic dysfunction present but cannot be graded. Normal RV size and function. Estimated RVSP moderately elevated RVSP 55 mm hg. Moderate to Severe . AV vmax 3.8 m/s, Mean PG 38 mm hg. LATRICE 0.5 sq cm. Severe posterior mac AND moderate anterior MAC with mild mitral stenosis mean PG 5 mm hg. Moderate to sevre MR. moderate TR and mild to moderate AI. Moderately dilated LA and mildly dilated RA. Plan: -Lasix 40 mg IV X 1 (03/10/2025) -TSH -Lipid Panel -A1c -Strict Ins and Outs -Fluid Restrictions -Oxygen support -Consult Cardiology, Dr. Castillo, in AM #Atrial Fibrillation, rvr, possible #EKG Abnormalities Patient has a past medical history of previous reported Atrial Fibrillation, per daughter, was told it was less likely atrial fibrillation, decision was made for no Eliquis and only Plavix on board for history of CVA. This EKG read A.fib w/ rvr but not all leads irregular and some noted with possible p waves. r waves present, no deep q waves noted. V1/V2 possible t wave abnormalities. Plan -uncommon examination in ER, tele noted to be in sinus -Diltiazem 240 mg PO X 1 in ER -Diltiazem 240 mg PO scheduled -obtain cardiology consult. #Mild Troponemia #NSTEMI, likely demand ischemia Mild elevation in Troponin likely in the setting of demand ischemia from asthma exacerbation. Denied chest pain, palpitations, or chest pressure. No st elevation noted. Plan -Repeat Troponin #ESRD on peritoneal dialysis #ESRD secondary to Granulomatosis Per patient history, follows Dr. Amezcua and Dr. Coley. Patient develoepd ESRD several years ago likely secondary to Granulomatosis. Peritoneal dialysis, daily. Consult nephrology for scheduled daily dialysis. Plan -Strict in and outs. -Peritoneal dialysis -Avoid nephrotoxins, consider renal dosing -Nephrology Consulted, Dr. Amezcua, appreciate recommendations. #Single Episode of Hematemsis #Normocytic Normochromic Anemia Pertinent lab values: MCV 88 RBC 3.94 Hgb 11.9 Hct 34.6. Given past medical history of GERD, consider gastric ulcers-given reported coffee ground emesis vs Granulomatosis flare vs lower GI bleed. Plan: -Monitor hgb >7 goal -Consider occult blood AM, if worsening drop -Consider gastroenterology consult with Dr. Abraham, if repeat episodes of coffee ground emesis #History of CVA Past medical history of CVA Plan -HOLD plavix given coffee ground emesis. #GERD #Gastritis (?) Per the patient's daughter, the patient recently experienced coffee ground emesis w/ history of GERD. Plan: Start Pantoprazole 40 mg PO QD-->Transition to Pantoprazole 40 mg IV BID (AM) #history of Fracture Neck of Right Femur Patient underwent surgical repair of closed right hip neck fracture on 12/01/[address] Lee Plan: Monitor for possible rehabilitation DVT prophylaxis: No DVT prophylaxis in setting of suspected GI bleed and anemia GI prophylaxis: IV Protonix qday Diet: Clear liquid diet Lines: Peripheral IV Code status: Full code Case discussed with Attending Dr. Martinez and senior resident Dr. Angela Sena, [facility], [place] - The patient's plan was discussed with attending Dr. Juan Miller MD PGY2 Internal Medicine Attending Provider Attestation/Addendum 84-year-old female with multiple comorbidities including heart failure with preserved EF with EF 55-60%, severe aortic stenosis with V-max 3.8, pulmonary hypertension, granulomatosis with polyangiitis with subsequent end-stage renal disease on peritoneal dialysis history of ischemic CVA with right-sided hemiparesis, hypertension, hyperlipidemia presented to the ER with shortness of breath found to have acute hypoxic respiratory failure multifactorial including asthma exacerbation and fluid overload state. Initially, patient did require BiPAP and advised to continue IV steroids, IV antibiotic therapy and plan for peritoneal dialysis. Furthermore, patient also has moderate to severe aortic stenosis with pulmonary arterial hypertension and plan to consult cardiology.I reviewed above note and agree with findings and plans. I have also personally examined the patient with medicine team and went over assessment and plan with medical team including director internal communications and resident physician.
--- NOTE | 2025-03-09 16:45 | ESCONSULT_ITS ---
HPI Data of Consult Consult date: 03/09/25 Requesting Physician: Yennifer Martinez MD Admitting Provider: Yennifer Martinez MD Attending Provider: Yennifer Martinez MD Primary Care Provider: Jori Woodruff Consult Narrative Reason for consult: Dialysis management History of present illness: Mrs. 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 Nephrology was consulted for management of her peritoneal dialysis. The patient came from home after her morning dialysis session. She did not have her evening dialysis session last night. The patient was discharged from [facility] December 29, 2024 for SOB due to fluid overload. During that December hospital stay, peritoneal dialysis was used to help decrease fluid burden. The patient today stated that her current SOB feels different and worse than her past episodes. She does not look overtly fluid overloaded and has been consistent with her home dialysis with the exception of last night due to difficulty breathing. In the ED, due to excessive work of breathing, the patient was put on BiPAP, which provided significant relief to the patient. Patient was admitted for further management. On admission, BUN 50, Cr 7.3, and eGFR 5. Baseline Cr per previous hospital admissions range around 5.5-6.5. The patient's daughter was called and it was explained that the patient also had coffee ground vomiting prior to coming to the ED, which concerned the patient's daughter given the patient's use of Plavix. Home breathing treatments did not seem to help the patient per her daughter. The patient's daughter also stressed that the patient should NOT be given IV fluids as the patient became fluid overloaded the previous time she received IV fluids. The patient's daughter's contact information was given to Dr. Amezcua to obtain more information on peritoneal dialysis setup and schedule. cc:: cc: Yennifer Martinez MD Review of Systems Review of Systems ROS Unobtainable: unobtainable due to medical condition Exam Vital Signs Temp Pulse Resp BP Pulse Ox O2 Del Method O2 Flow Rate 98.8 F 99 29 H 145/75 H 100 BiPAP 30 03/09/25 16:18 03/09/25 16:18 03/09/25 16:18 03/09/25 16:18 03/09/25 16:18 03/09/25 16:18 03/09/25 13:18 FiO2 30 03/09/25 13:18 Narrative Exam Physical Exam: General: Alert, acute distress. Skin: Warm, dry, intact, no obvious rash. Head: Normocephalic, atraumatic. Eye: Normal conjunctiva, PERRL. Respiratory: Respirations labored, improved after BiPAP placement. Extremities: 1+ BLE edema, no cyanosis. Neuro: No focal deficits observed. Moving all extremities. No overt cerebellar signs/incoordination. Results Labs 03/10/25 04:21 03/10/25 04:21 Labs: Short CBC 03/09/25 Range/Units 07:50 WBC 10.3 (3.6-11.0) Thou/mm3 Hgb 11.9 L (12.0-16.0) g/dL Hct 34.6 L (36.0-46.0) % Plt Count 361 (140-440) Thou/mm3 BMP 03/09/25 03/09/25 07:50 14:05 Sodium 133 L 131 L Potassium 4.4 4.6 Chloride 91 L 90 L Carbon Dioxide 28.9 26.2 BUN 56 H 51 H Creatinine 6.9 H* 7.3 H* Glucose 156 H 142 H Calcium 10.0 9.8 Cardiac Enzymes 03/09/25 03/09/25 Range/Units 07:50 12:28 Troponin I 0.134 H* 0.143 H* (0.0-0.045) ng/mL Liver Function 03/09/25 03/09/25 Range/Units 07:50 14:05 Total Bilirubin 0.2 L (0.3-1.2) mg/dL AST 46 H (0-34) U/L ALT 46 (10-49) U/L Alkaline Phosphatase 98 (46-116) U/L Albumin 4.1 4.0 (3.4-4.8) gm/dL ABG Interpretation ABG results: 03/09/25 07:50 VBG pH 7.39 VBG pCO2 49 VBG pO2 70 H VBG Base Excess 4 H Quality Measures Quality Measures none Advance care planning discussed with:: patient and child Medications Home Medications and Allergies Home Medications ?Medication ?Instructions ?Recorded ?Confirmed ?Type atorvastatin 40 mg tablet 40 mg PO QDAY 08/15/1901/01 History acetaminophen 500 mg capsule 1,000 mg PO Q6H PRN Pain 09/04/19 01/01/25 History calcitriol 0.25 mcg capsule 0.25 mcg PO QDAY 11/30/24 01/01/25 History Allergies Allergy/AdvReac Type Severity Reaction Status Date / Time shrimp Allergy Severe Wheezing Verified 01/01/25 10:01 NSAIDS (Non-Steroidal Allergy Intermediate Swelling Verified 01/01/25 10:01 Anti-Inflamma Penicillins Allergy Intermediate Rash Verified 01/01/25 10:01 Visit Medications Acetaminophen (Acetaminophen 325 Mg Tablet) 650 mg PO Q6H PRN PRN Reason: Mild Pain(1-3) or Fever >100.3 Stop: 04/08/25 14:40 Hydrocodone Bitart/Acetaminophen (Hydrocodone/Apap 5/325 Tablet) 1 tab PO Q4HR PRN PRN Reason: PAIN SCALE 4-10(Mod-Sev Stop: 03/14/25 14:40 Atorvastatin Calcium (Atorvastatin Calcium 20 Mg Tablet) 40 mg PO HS SABRINA Stop: 04/08/25 20:59 Clopidogrel Bisulfate (Clopidogrel Bisulfate 75 Mg Tablet) 75 mg PO QDAY S[facility]RINA Stop: 04/09/25 08:59 Diltiazem HCl (Diltiazem Cd 120 Mg Capcr) 240 mg PO QDAY [facility] Stop: 04/09/25 08:59 Heparin Sodium (Porcine) (Heparin Sod Inj 5000 Unit/Ml Vial) 5,000 unit SC BID SABRINA Stop: 03/23/25 20:59 Hydroxyzine HCl (Hydroxyzine Hcl 25 Mg Tablet) 25 mg PO HS [facility] Stop: 04/08/25 20:59 Ipratropium Bradley (Ipratropium Rt 0.5 Mg/ 2.5 Ml Nebu) 0.5 mg INH Q6HR PRN PRN Reason: SHORTNESS OF BREATH Stop: 04/08/25 16:23 Levalbuterol HCl (Levalbuterol Rt 1.25 Mg/0.5 Ml Nebu) 1.25 mg INH Q6HR PRN PRN Reason: WHEEZING Stop: 04/08/25 16:23 Methylprednisolone Sodium Succinate (Methylprednisolone Sod Succ 40 Mg Vial) 60 mg IVP TID SABRINA Stop: 03/17/25 05:59 Ondansetron HCl (Ondansetron Inj 2 Mg/Ml Inj 2 Ml) 4 mg IVP Q6H PRN; Protocol PRN Reason: NAUSEA OR VOMITING Stop: 04/08/25 14:40 Pantoprazole Sodium (Pantoprazole 40 Mg Tablet) 40 mg PO QDAY SABRINA Stop: 04/09/25 08:59 Sennosides (Senna Tablet) 1 tab PO QDAY SABRINA; Protocol Stop: 04/09/25 08:59 Sodium Chloride (Sodium Chloride Rt Annika 0.9% 3 Ml Nebu) 3 ml INH PRN PRN PRN Reason: SOLN Stop: 04/08/25 16:23 Discontinued Medications Albuterol (Albuterol Rt 2.5 Mg/3 Ml Nebu) 5 mg INH X1 ONE Stop: 03/09/25 07:47 Last Admin: 03/09/25 08:32 Dose: 5 mg Diltiazem HCl (Diltiazem Cd 120 Mg Capcr) 240 mg PO X1 ONE Stop: 03/09/25 07:47 Last Admin: 03/09/25 09:41 Dose: 240 mg Diphenhydramine HCl (Diphenhydramine Inj 50 Mg/Ml Vial) 12.5 mg IVP X1 ONE Stop: 03/09/25 16:25 Last Admin: 03/09/25 16:49 Dose: 12.5 mg Famotidine (Famotidine Inj 10 Mg/Ml Vial 2 Ml) 20 mg IVP X1 ONE Stop: 03/09/25 07:47 Last Admin: 03/09/25 08:15 Dose: 20 mg Sodium Chloride (Ns) 500 mls @ 999 mls/hr IV .Q31M ONE Stop: 03/09/25 08:16 Last Infusion: 03/09/25 08:19 Dose: 0 mls/hr Magnesium Sulfate (Magnesium Sulfate Ivpb) 2 gm in 50 mls @ 25 mls/hr IV X1 ONE Stop: 03/09/25 16:48 Last Infusion: 03/09/25 16:52 Dose: Infused Levalbuterol HCl (Levalbuterol Rt 1.25 Mg/0.5 Ml Nebu) 1.25 mg INH X1 ONE Stop: 03/09/25 12:15 Last Admin: 03/09/25 13:16 Dose: 1.25 mg Methylprednisolone Sodium Succinate (Methylprednisolone Sod Succ 62.5 Mg/Ml 2ml Vial) 125 mg IVP X1 ONE Stop: 03/09/25 07:47 Last Admin: 03/09/25 08:13 Dose: 125 mg Methylprednisolone Sodium Succinate (Methylprednisolone Sod Succ 40 Mg Vial) 120 mg IVP X1 ONE Stop: 03/09/25 14:49 Last Admin: 03/09/25 14:57 Dose: 120 mg Pantoprazole Sodium (Pantoprazole Inj 40 Mg Vial) 40 mg IVP X1 ONE Stop: 03/09/25 07:47 Last Admin: 03/09/25 08:10 Dose: 40 mg Sodium Chloride (Sodium Chloride Rt Annika 0.9% 3 Ml Nebu) 3 ml INH X1 ONE Stop: 03/09/25 12:16 Last Admin: 03/09/25 13:17 Dose: 3 ml Sucralfate (Sucralfate Susp 1 Gm/10 Ml Udc) 1 gm PO X1 ONE Stop: 03/09/25 07:47 Last Admin: 03/09/25 09:41 Dose: 1 gm Assessment & Plan Plan Mrs. 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 Nephrology was consulted for management of her peritoneal dialysis. #ESRD on Peritoneal Dialysis (Morning and Evening) 2/2 Donna's Granulomatosis - Continue home peritoneal dialysis schedule, patient's daughter discussed schedule with Dr. Amezcua. - Continue to monitor renal function. - Avoid IV hydration given past history of fluid overload and CHF. - Avoid nephrotoxic drugs and renally adjust medications. - Nephrology will continue to .follow Patient was discussed with the Nephrology attending, Dr. Amezcua. Thank you for allowing us to participate in the care of this patient. Rogelio Asher, PGY-1 Attending Provider Attestation/Addendum Pt is seen and examined. labs and investigations are reviewed. Agree with assessment and plan and findings by resident. Temo Amezcua MD Discussed plant and treatment with daughter. c/w PD as ordered
[2025-03-09 17:10] LABS: Reflex Lactate? Y
[2025-03-09 17:30] LABS: Lactic Acid, 3 HR 1.9 mMol/L (0.4-2.0)
[2025-03-09] MEDS: IPRATROPIUM RT 0.5 MG/ 2.5 ML NEBU INH (18:09)
[2025-03-09 18:26] LABS: Base Excess 2 (-3-3); HCO3 27 mEq/L (20-26); Inspired Oxygen, FIO2 30 %; O2 Saturation 101 % (91-98); PCO2 39 mmHg (32.0-48.0); PO2 289 mmHg (83-108); pH, Arterial 7.45 (7.35-7.45)
[2025-03-09 18:27] LABS: Allen Test Performed/OK; Puncture Site Right Radial
--- NOTE | 2025-03-09 19:28 | PC.NURSE ---
report recieved from Hank . Pt on bipap and seems libby be tolerating well. assisted pt to reposition and provided pt a sip of watter.
[2025-03-09 20:50] LABS: Respiratory Syncytial Virus Ag Negative (Negative)
--- NOTE | 2025-03-09 21:23 | PC.NURSE ---
surajt was called to [facility]. PT taken to rm [id number] on monitor and on Bipap. accompanied by myself, ARNAV Ontiveros and RT tamara.
[2025-03-09] MEDS: ATORVASTATIN CALCIUM 20 MG TABLET 40 MG PO (21:39)
[2025-03-09] MEDS: HEPARIN SOD INJ 5000 UNIT/ML VIAL SC (21:39)
[2025-03-09] MEDS: MELATONIN 3 MG TABLET PO (23:24)
[2025-03-10] VITALS (15 sets, daily range): BP systolic 92–144; BP diastolic 59–88; PULSE 81–133; RESP 17–33; TEMP 36.2–36.7; O2SAT 97–100; BMI 25.5
[2025-03-10] MEDS: IPRATROPIUM RT 0.5 MG/ 2.5 ML NEBU INH ×6 (01:06→22:07)
[2025-03-10] MEDS: LEVALBUTEROL RT 1.25 MG/0.5 ML NEBU INH ×5 (01:09→22:06)
[2025-03-10 05:42] LABS: Basophils # (Auto) 0.0 Thou/mm3 (0.0-0.2); Basophils % (Auto) 0 % (0-2.5); Eosinophils # (Auto) 0.0 Thou/mm3 (0.0-0.5); Eosinophils % (Auto) 0 % (0-10); Hematocrit 30.5 % (36.0-46.0); Hemoglobin 10.5 g/dL (12.0-16.0); Immature Granulocytes Auto 0.10 Thou/mm3 (0.00-0.00); Lymphocytes # (Auto) 1.2 Thou/mm3 (1.0-4.8); Lymphocytes % (Auto) 9 % (10-50); Mean Corpuscular HGB Conc 34.4 g/dl (31.0-37.0); Mean Corpuscular Hemoglobin 30.2 pg (25.0-35.0); Mean Corpuscular Volume 88 fL (80-100); Monocytes # (Auto) 0.5 Thou/mm3 (0.0-0.8); Monocytes % (Auto) 4 % (0-12); Neutrophils # (Auto) 12.5 Thou/mm3 (1.8-7.7); Neutrophils % (Auto) 87 % (37-80); Nucleated Red Blood Cell # 0.00 Thou/mm3 (0.00-0.00); Nucleated Red Blood Cell % 0 /100 WBC (0); Platelet Count 291 Thou/mm3 (140-440); RDW Standard Deviation 49.9 fL (36.4-46.3); Red Blood Count 3.48 Miln/mm3 (4.00-5.20); White Blood Count 14.3 Thou/mm3 (3.6-11.0)
[2025-03-10 06:12] LABS: Glucose Estimated Average 97 mg/dL (80-131); Hemoglobin A1C 5.0 % Hgb (4.8-6.0)
[2025-03-10 06:19] LABS: Alanine Aminotransferase 39 U/L (10-49); Albumin, Serum 3.7 gm/dL (3.4-4.8); Albumin/Globulin Ratio 1.2 (1.2-2.2); Alkaline Phosphatase 85 U/L (46-116); Anion Gap 17 (7-16); Aspartate Amino Transferase 40 U/L (0-34); BUN/Creatinine Ratio 6 Ratio (12-20); Bilirubin,Total 0.3 mg/dL (0.3-1.2); Blood Urea Nitrogen 42 mg/dL (9-23); Calcium 9.2 mg/dL (8.3-10.6); Calcium (Corrected) 9.4 mg/dL (8.5-10.1); Carbon Dioxide 24.6 mMol/L (20.0-31.0); Cardiac Risk Estimate 3.1 RATIO (3.7-5.6); Chloride 91 mMol/L (98-107); Cholesterol 136 mg/dL (132-200); Creatinine (Component) 6.9 mg/dL (0.6-1.3); Estimated Creatinine Clearance 4.3 mL/min (>60); Globulin 3.2 gm/dL (2.3-3.5); Glucose 147 mg/dL (74-106); HDL Cholesterol 44 mg/dL (40-60); LDL Cholesterol,Calculated 80 mg/dL (0-130); Magnesium 3.1 mg/dL (1.6-2.6); Osmolality,Calculated 279 (275-295); Phosphorous 3.2 mg/dL (2.4-5.1); Potassium 4.7 mMol/L (3.4-5.1); Sodium 133 mMol/L (136-145); Thyroid Stimulating Hormone 0.07 uIU/mL (0.55-4.78); Total Protein 6.9 gm/dL (5.7-8.2); Triglycerides 58 mg/dL (30-150); eGFR 6 See Note
[2025-03-10 06:26] LABS: Troponin I 0.141 ng/mL (0.0-0.045)
[2025-03-10] MEDS: HEPARIN SOD INJ 5000 UNIT/ML VIAL SC ×2 (09:02→20:08)
[2025-03-10] MEDS: PANTOPRAZOLE 40 MG TABLET PO (09:02)
[2025-03-10] MEDS: DILTIAZEM CD 120 MG CAPCR 240 MG PO (09:02)
[2025-03-10] MEDS: CLOPIDOGREL BISULFATE 75 MG TABLET PO (09:05)
[2025-03-10] MEDS: cefTRIAXone/D5w 1gm IV premix 1 GM/50 ML BAG IV (09:24)
[2025-03-10] MEDS: AZITHROMYCIN INJ 500 MG in SODIUM CHLORIDE 0.9% 250 ML 250 ML 250 MG IV (09:25)
[2025-03-10 09:33] LABS: Influenza A Ag Negative; Influenza B Ag Negative
[2025-03-10 09:38] LABS: Base Excess, Venous 5 (-3-3); O2 Saturation, Venous 93 % (96-97); PCO2, Venous 37 mmHg (36-56); PO2, Venous 68 mmHg (15-58); pH, Venous 7.49 (7.33-7.66)
[2025-03-10 10:37] LABS: Free T4 (Free Thyroxine) 1.87 ng/dL (0.89-1.76)
--- NOTE | 2025-03-10 10:56 | ESPR_ITS ---
Documentation for date of: 03/10/25 Subjective Subjective Interval history: Patient evaluated bedside, currently seen on high flow nasal cannula oxygen saturating at 20 L/min, complaining of excessive phlegm production and difficulty breathing; Spoke to Dr. Rodriguez at the bedside, ordered continuous nebulization with ipratropium, increased nebulization frequency to every 4 hour. Stays on IV antibiotics azithromycin and ceftriaxone. Chest physiotherapy ordered. Patient also complained of abdominal pain , Ordered peritoneal fluid for culture. Hemoglobin 10.5 on morning labs, will continue Plavix as Hb and blood pressure stable and underlying rythym possible MAT vs Afib. Noted suppressed TSH and elevated T4 levels, ordered US thyroid to r/o nodules, TSI/TSH-R Antibodies and TPO antibodies, though less to be noted that thyroid function tests are of limited utility during acute illnesses and hospitalizations, the patient will eventually require repeat thyroid function test once discharged to confirm thyroid disorders. Also patient has longstanding history of MAT likely secondary to pulmonary disorder, less likely influenced by thyroid. Exam Vital Signs Temp Pulse Resp BP Pulse Ox O2 Del Method O2 Flow Rate 97.1 F 98 24 H 102/59 L 100 High Flow Nasal Cannula 20 03/10/25 08:00 03/10/25 10:23 03/10/25 10:23 03/10/25 09:02 03/10/25 10:23 03/10/25 08:00 03/10/25 10:23 FiO2 35 03/10/25 10:23 Narrative Exam General Appearance: Alert & Oriented X3, in mild distress due to respiratory discomfort, currently seen on HFNC O2 20 L/min HEENT: Skull symmetrical and atraumatic. Conjunctivae pikn and moist. Pupils equal, round, reactive to light and accommodation (PERRL). External ear without lesion or discharge. Straight, nares patient, mucosa pink, no discharge. No thyroid nodule appreciated. No cervical lymphadenopathy. Cardio: Tachycardic Rate and Rhythm with S1 and S2 heart sounds. possible systolic murmur noted, difficult to distinguish given rhonchi. No bruits on carotid auscultation. No peripheral edema or cyanosis. Lungs: Symmetric, rapid, respiratory rate, tachypnea. Chest and back non-tender. Reduced breath sounds vesicular with diffuse rhonchi & wheezing bilaterally. Abdomen: Mildly tender and distended, Normal Reactive Bowel Sounds Neuro: Alert, cooperative, oriented to person, place, and time. Speech clear. CN grossly intact. Upper motor strength 5/5 and Lower motor strength 5/5. Sensation intact. Objective Labs 03/16/25 03:16 03/16/25 03:16 Labs: Laboratory Results - last 24 hr 03/09/25 03/09/25 03/09/25 11:28 12:28 14:05 WBC RBC Hgb Hct MCV MCH MCHC RDW Std Deviation Plt Count Neut % (Auto) Lymph % (Auto) Cavalier % (Auto) Eos % (Auto) Baso % (Auto) Neut # (Auto) Lymph # (Auto) Cavalier # (Auto) Eos # (Auto) Baso # (Auto) Immature Gran # (Auto) Absolute Nucleated RBC Immature Gran % Nucleated RBC % Puncture Site ABG pH ABG pCO2 ABG pO2 ABG HCO3 ABG O2 Saturation ABG Base Excess VBG pH VBG pCO2 VBG pO2 VBG O2 Sat (Tammie) VBG Base Excess FiO2 Sodium 131 L Potassium 4.6 Chloride 90 L Carbon Dioxide 26.2 Anion Gap 15 BUN 51 H Creatinine 7.3 H* Estim Creat Clear Calc 4.1 L eGFR 5 L* BUN/Creatinine Ratio 7 L Glucose [address] Glu mg/dL Hemoglobin A1c Calculated Osmolality 278 Lactic Acid 2.9 H 2.8 H Calcium 9.8 Corrected Calcium 9.8 Phosphorus 3.8 Magnesium Total Bilirubin AST ALT Alkaline Phosphatase Troponin I 0.143 H* Total Protein Albumin 4.0 Globulin Albumin/Globulin Ratio Triglycerides Cholesterol LDL Cholesterol, Calc HDL Cholesterol Cholesterol/HDL Ratio TSH Free T4 Influenza A (Rapid) Influenza B (Rapid) RSV Rapid 03/09/25 03/09/25 03/09/25 17:28 18:22 18:56 WBC RBC Hgb Hct MCV MCH MCHC RDW Std Deviation Plt Count Neut % (Auto) Lymph % (Auto) Cavalier % (Auto) Eos % (Auto) Baso % (Auto) Neut # (Auto) Lymph # (Auto) Cavalier # (Auto) Eos # (Auto) Baso # (Auto) Immature Gran # (Auto) Absolute Nucleated RBC Immature Gran % Nucleated RBC % Puncture Site Right Radial ABG pH 7.45 ABG pCO2 39 ABG pO2 289 H ABG HCO3 27 H ABG O2 Saturation 101 H ABG Base Excess 2 VBG pH VBG pCO2 VBG pO2 VBG O2 Sat (Tammie) VBG Base Excess FiO2 30 Sodium Potassium Chloride Carbon Dioxide Anion Gap BUN Creatinine Estim Creat Clear Calc eGFR BUN/Creatinine Ratio Glucose Estimated Ave Glu mg/dL Hemoglobin A1c Calculated Osmolality Lactic Acid 1.9 Calcium Corrected Calcium Phosphorus Magnesium Total Bilirubin AST ALT Alkaline Phosphatase Troponin I Total Protein Albumin Globulin Albumin/Globulin Ratio Triglycerides Cholesterol LDL Cholesterol, Calc HDL Cholesterol Cholesterol/HDL Ratio TSH Free T4 Influenza A (Rapid) Influenza B (Rapid) RSV Rapid Negative 03/10/25 03/10/25 03/10/25 04:21 07:46 09:05 WBC 14.3 H RBC 3.48 L Hgb 10.5 L Hct 30.5 L MCV 88 MCH 30.2 MCHC 34.4 RDW Std Deviation 49.9 H Plt Count 291 D Neut % (Auto) 87 H Lymph % (Auto) 9 L Cavalier % (Auto) 4 Eos % (Auto) 0 Baso % (Auto) 0 Neut # (Auto) 12.5 H Lymph # (Auto) 1.2 Cavalier # (Auto) 0.5 Eos # (Auto) 0.0 Baso # (Auto) 0.0 Immature Gran # (Auto) 0.10 H Absolute Nucleated RBC 0.00 Immature Gran % 1 H Nucleated RBC % 0 Puncture Site ABG pH ABG pCO2 ABG pO2 ABG HCO3 ABG O2 Saturation ABG Base Excess VBG pH 7.49 VBG pCO2 37 D VBG pO2 68 H VBG O2 Sat (Tammie) 93 L VBG Base Excess 5 H FiO2 Sodium 133 L Potassium 4.7 Chloride 91 L Carbon Dioxide 24.6 Anion Gap 17 H BUN 42 H Creatinine 6.9 H* Estim Creat Clear Calc 4.3 L eGFR 6 L* BUN/Creatinine Ratio 6 L Glucose [address] Glu mg/dL 97 Hemoglobin A1c 5.0 Calculated Osmolality 279 Lactic Acid Calcium 9.2 Corrected Calcium 9.4 Phosphorus 3.2 Magnesium 3.1 H Total Bilirubin 0.3 AST 40 H ALT 39 Alkaline Phosphatase 85 Troponin I 0.141 H* Total Protein 6.9 Albumin 3.7 Globulin 3.2 Albumin/Globulin Ratio 1.2 Triglycerides 58 Cholesterol 136 LDL Cholesterol, Calc 80 HDL Cholesterol 44 Cholesterol/HDL Ratio 3.1 L TSH 0.07 L* Free T4 1.87 H Influenza A (Rapid) Negative Influenza B (Rapid) Negative RSV Rapid ABG Interpretation ABG results: 03/09/25 03/09/25 03/10/25 07:50 18:22 09:05 ABG pH 7.45 ABG pCO2 39 ABG pO2 289 H ABG HCO3 27 H ABG O2 Saturation 101 H ABG Base Excess 2 VBG pH 7.39 7.49 VBG pCO2 49 37 D VBG pO2 70 H 68 H VBG Base Excess 4 H 5 H Quality Measures Quality Measures none Advance care planning discussed with:: patient Assessment & Plan Assessment Current Active Medications: Generic Name Dose Route Start Last Admin Trade Name Freq PRN Reason Stop Dose Admin Acetaminophen 650 mg 03/09/25 14:41 Acetaminophen 325 Mg Tablet PO 04/08/25 14:40 Q6H PRN Mild Pain(1-3) or Fever >100.3 Hydrocodone Bitart/Acetaminophen 1 tab 03/09/25 14:41 Hydrocodone/Apap 5/325 Tablet PO 03/14/25 14:40 Q4HR PRN PAIN SCALE 4-10(Mod-Sev Atorvastatin Calcium 40 mg 03/09/25 21:00 03/09/25 21:39 Atorvastatin Calcium 20 Mg Tablet PO 04/08/25 20:59 40 mg HS SABRINA Administration Clopidogrel Bisulfate 75 mg 03/10/25 09:00 03/10/25 09:05 Clopidogrel Bisulfate 75 Mg Tablet PO 04/09/25 08:59 75 mg QDAY SABRINA Administration Diltiazem HCl 240 mg 03/10/25 09:00 03/10/25 09:02 Diltiazem Cd 120 Mg Capcr PO 04/09/25 08:59 240 mg QDAY SABRINA Administration Heparin Sodium (Porcine) 5,000 unit 03/09/25 21:00 03/10/25 09:02 Heparin Sod Inj 5000 Unit/Ml Vial SC 03/23/25 20:59 5,000 unit BID SABRINA Administration Hydroxyzine HCl 25 mg 03/09/25 21:00 03/09/25 21:39 Hydroxyzine Hcl 25 Mg Tablet PO 04/08/25 20:59 25 mg HS SABRINA Administration Azithromycin 500 mg/ Sodium 250 mls @ 250 mls/hr 03/10/25 09:00 03/10/25 09:25 Chloride IV 03/12/25 08:59 250 mls/hr QDAY SABRINA Administration Ceftriaxone Sodium/Dextrose 1 gm in 50 mls @ 100 mls/hr 03/10/25 08:00 03/10/25 09:24 Rocephin/D5w 1gm Iv Premix IV 03/17/25 07:59 100 mls/hr QDAY SABRINA Administration Ipratropium Palmer 0.5 mg 03/10/25 01:00 03/10/25 06:15 Ipratropium Rt 0.5 Mg/ 2.5 Ml Nebu INH 04/09/25 00:59 0.5 mg Q6HRRT SABRINA Administration Levalbuterol HCl 1.25 mg 03/10/25 01:00 03/10/25 06:15 Levalbuterol Rt 1.25 Mg/0.5 Ml Nebu INH 04/09/25 00:59 1.25 mg Q6HRRT SABRINA Administration Melatonin 3 mg 03/09/25 23:18 03/09/25 23:24 Melatonin 3 Mg Tablet PO 04/09/25 20:59 3 mg HS PRN Administration insomnia Methylprednisolone Sodium Succinate 60 mg 03/10/25 06:00 03/10/25 05:12 Methylprednisolone Sod Succ 40 Mg Vial IVP 03/17/25 05:59 60 mg TID SABRINA Administration Ondansetron HCl 4 mg 03/09/25 14:41 Ondansetron Inj 2 Mg/Ml Inj 2 Ml IVP 04/08/25 14:40 Q6H PRN NAUSEA OR VOMITING Protocol Pantoprazole Sodium 40 mg 03/10/25 09:00 03/10/25 09:02 Pantoprazole 40 Mg Tablet PO 04/09/25 08:59 40 mg QDAY SABRINA Administration Sennosides 1 tab 03/10/25 09:00 03/10/25 09:02 Senna Tablet PO 04/09/25 08:59 1 tab QDAY SABRINA Administration Protocol Sodium Chloride 3 ml 03/09/25 16:24 03/09/25 18:09 Sodium Chloride Rt Annika 0.9% 3 Ml Nebu INH 04/08/25 16:23 3 ml PRN PRN Administration SOLN Plan Patient is an 84-year-old female with a past medical history CHF HFpEF 55 to 60% (11/23/2024), systolic dysfunction, moderate PAH 55, moderate to severe with V-max 3.8, ESRD status post peritoneal dialysis dialysis, chronic asthma since early 20s, 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 #Acute hypoxic respiratory failure secondary to asthma exacerbation #Acute on Chronic Asthma exacerbation #Granulomatosis w/ Polyangiitis-formerly known as Antonia's Patient presented to the ED via EMS with a two day history of worsening shortness of breath. Patient's family noticed the patient wheezing while receiving dialysis and called EMS. While in the emergency room department, several episode of spO2 80s on nasal cannula-->transitioned to Bipap. While in ER, increased work of breathing, RR high 30s/40s with abdominal breathing noted, increase in FiO 10-->30. Repeat ABG pH 7.45, pO2 289, HC03 27-->decrease in FIO2 to 20. Daughter at bedside noted an URI several days ago and is concern this may have triggered current exacerbation. Plan: - Continue HFNC, currently at 20 L/min, attempt to wean down oxygen. - Methylprednisone 60 mg 3 times daily - Continuous hour-long nebulization x 1, will continue with Xopenex and ipratropium nebulization every 4 hour - IV antibiotics with ceftriaxone and azithromycin - Consider MORRIS levels/ESR to determine possible exacerbation as relapses with Antonia are common, specially with reported coffee ground emesis - 03/10/2025 venous blood gas shows normal pH, PCO2 and PO2 within normal range, on high flow oxygen #Concern for Hyperthyroidism Noted suppressed TSH and elevated T4 levels, limited utility of thyroid function test during acute illness and hospitalization. the patient will eventually require repeat thyroid function test once discharged to confirm thyroid disorders. Also patient has longstanding history of MAT likely secondary to pulmonary disorder, less likely influenced by thyroid. -ordered US thyroid to r/o nodules, -TSI/TSH-R Antibodies and TPO antibodies. - Repeat thyroid function testing in 3 to 4 weeks after discharge, and follow-up with chemistry quality control analyst #Acute on Chronic Congestive Heart Failure #CHF HFpEF 55-60% (11/2024) #Mild Pulmonary Vascular Congestion #Moderate to Severe Aortic Stenosis, AV vmax 3.8 m #Severe Mitral Regurgitation #Moderate PAH, 55 mmHg Patient likely acute on chronic congestive heart failure this, may only be mild exacerbation as pulmonary vascular congestion was less prominent as compared to other episode. Current BNP of 345 vs previous CHF exacerbation of 1691.Acute on chronic CHF exacerbation likely triggered by asthma exacerbation. -BNP 345 -Chest x-ray (03/10/2025): Mild chronic heart failure pattern, prominent vascular congestion-overall mild chornic heart failure Echo completed 11/30/24:Normal LV size and function. EF 55-60%. Diastolic dysfunction present but cannot be graded. Normal RV size and function. Estimated RVSP moderately elevated RVSP 55 mm hg. Moderate to Severe . AV vmax 3.8 m/s, Mean PG 38 mm hg. LATRICE 0.5 sq cm. Severe posterior mac AND moderate anterior MAC with mild mitral stenosis mean PG 5 mm hg. Moderate to sevre MR. moderate TR and mild to moderate AI. Moderately dilated LA and mildly dilated RA. Plan: -Lasix 40 mg IV X 1 (03/10/2025) -TSH -Lipid Panel -A1c -Strict Ins and Outs -Fluid Restrictions -Oxygen support - Cardiology consulted to Dr. Campa is placed, pending recommendations - Continue Plavix #Atrial Fibrillation, rvr, possible #EKG Abnormalities Patient has a past medical history of previous reported Atrial Fibrillation, per daughter, was told it was less likely atrial fibrillation, decision was made for no Eliquis and only Plavix on board for history of CVA. This EKG read A.fib w/ rvr but not all leads irregular and some noted with possible p waves. r waves present, no deep q waves noted. V1/V2 possible t wave abnormalities. Plan -uncommon examination in ER, tele noted to be in sinus -Diltiazem 240 mg PO X 1 in ER -Diltiazem 240 mg PO scheduled -obtain cardiology consult. #Mild Troponemia #NSTEMI, type II likely demand ischemia Mild elevation in Troponin likely in the setting of demand ischemia from asthma exacerbation. Denied chest pain, palpitations, or chest pressure. No st elevation noted. Plan -Repeat Troponin peaked at 0.143. #ESRD on peritoneal dialysis #ESRD secondary to Granulomatosis Per patient history, follows Dr. Amezcua and Dr. Coley. Patient develoepd ESRD several years ago likely secondary to Granulomatosis. Peritoneal dialysis, daily. Consult nephrology for scheduled daily dialysis. Plan -Strict in and outs. -Peritoneal dialysis -Avoid nephrotoxins, consider renal dosing -Nephrology Consulted, Dr. Amezcua, appreciate recommendations. - Peritoneal fluid culture ordered, started IV ceftriaxone, #Single Episode of Hematemsis #Normocytic Normochromic Anemia Pertinent lab values: MCV 88 RBC 3.94 Hgb 11.9 Hct 34.6. Given past medical history of GERD, consider gastric ulcers-given reported coffee ground emesis vs Granulomatosis flare vs lower GI bleed. Plan: -Monitor hgb >7 goal -Consider occult blood AM, if worsening drop -Consider gastroenterology consult with Dr. Abraham, if repeat episodes of coffee ground emesis #History of CVA Past medical history of CVA Plan -HOLD plavix given coffee ground emesis. #GERD #Gastritis (?) Per the patient's daughter, the patient recently experienced coffee ground emesis w/ history of GERD. Plan: Start Pantoprazole 40 mg PO QD-->Transition to Pantoprazole 40 mg IV BID (AM) #history of Fracture Neck of Right Femur Patient underwent surgical repair of closed right hip neck fracture on 12/01/[address] Lee Plan: Monitor for possible rehabilitation DVT prophylaxis: No DVT prophylaxis in setting of suspected GI bleed and anemia GI prophylaxis: IV Protonix qday Diet: Clear liquid diet Lines: Peripheral IV Code status: Full code The patient's plan was discussed with attending Dr. Juan Neely PGY3 Attending Provider Attestation/Addendum 84-year-old female with multiple comorbidities including heart failure with preserved EF with EF 55-60%, severe aortic stenosis with V-max 3.8, pulmonary hypertension, granulomatosis with polyangiitis with subsequent end-stage renal disease on peritoneal dialysis history of ischemic CVA with right-sided hemiparesis, hypertension, hyperlipidemia presented to the ER with shortness of breath found to have acute hypoxic respiratory failure multifactorial including asthma exacerbation and fluid overload state. Initially, patient did require BiPAP and advised to continue IV steroids, IV antibiotic therapy and plan for peritoneal dialysis. Furthermore, patient also has moderate to severe aortic stenosis with pulmonary arterial hypertension and plan to consult cardiology. Overnight, patient continues to be on high flow nasal cannula and plan to continue IV steroids, IV antibiotic and peritoneal dialysis. Appreciate cardiology and nephrology input. I reviewed above note and agree with findings and plans. I have also personally examined the patient with medicine team and went over assessment and plan with medical team including media relations intern and resident physician.
--- NOTE | 2025-03-10 16:55 | PC.SS ---
SS attempted to complete initial; pt sleeping
--- NOTE | 2025-03-10 17:41 | PD.IMCONS ---
HPI Data of Consult Consult date: 03/10/25 Requesting Physician: Yennifer Martinez MD Primary Care Provider: Jori Woodruff Consult Narrative Reason for consult: Tachycardia and elevated troponins History of present illness: 84-year-old female with a past medical history of severe aortic stenosis with a valve area of 0.5 cm?, moderate MR and TR, moderate PAH, preserved EF with diastolic dysfunction, end-stage renal disease on peritoneal dialysis for the last 4 to 5 years, Antonia's granulomatosis diagnosed 25 years ago, chronic severe asthma since her early 20s, history of multifocal atrial tachycardia, 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 Patient follows up in the clinic in was seen by me only few days ago and patient was doing well and that she was scheduled for the left and right heart cardiac catheterization on Wednesday as part of her workup for the severe aortic stenosis. Patient did well for the next few days but apparently patient did have some upper respiratory tract symptoms over the last couple of days and scented with shortness of breath along with some wheezing. Patient also had 1 after family members recently in [place] and since then patient again has been anxious with the increased emotional stress which calls also have contributed to the presentation. Patient does not complain of any increased fluid overload and has been doing the dialysis regularly. In the emergency department patient blood pressure was elevated at 166/122 mmHg, heart rate was elevated around 120 25 bpm, respiratory rate was 26 and saturation was 100% on 3 L oxygen was nasal cannula temperature was 99.1. Labs showed WBC elevated at 14.3, hemoglobin was 10.5, BUN of 42 creatinine of 6.9 patient on dialysis, sodium of 133 and glucose of 147. Troponin was mildly elevated at 0.134 and 0.143. LFTs were normal and albumin was 4.0. EKG showed multifocal atrial tachycardia. Chest x-ray showed moderate cardiomegaly along with mild vascular congestion. BNP was elevated at 345 and lactate was also elevated 2.8. Cardiology was consulted for further evaluation of the tachycardia and elevated troponins cc:: cc: Yennifer Martinez MD Review of Systems Review of Systems Systems Reviewed: All systems reviewed, normal except as documented Past Medical History Past Medical History Comments PMH COMMENT: PMH: Positive for diastolic heart failure, hyperlipidemia, hypertension, end-stage renal disease on peritoneal dialysis, CVA 15 years ago, asthma, Antonia's and osteoarthritis PSHx: Denies Allergies: Shrimp?wheezing, NSAIDs?swelling, penicillin?rash Social history: -Smoking: Denies -Alcohol Use: Denies -Illicit Drug Use: Denies -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 Meds Home Medications and Allergies Home Medications ?Medication ?Instructions ?Recorded ?Confirmed ?Type atorvastatin 40 mg tablet 40 mg PO QDAY 08/15/19 01/01/25 History acetaminophen 500 mg capsule 1,000 mg PO Q6H PRN Pain 09/04/19 01/01/25 History calcitriol 0.25 mcg capsule 0.25 mcg PO QDAY 11/30/24 01/01/25 History Allergies Allergy/AdvReac Type Severity Reaction Status Date / Time shrimp Allergy Severe Wheezing Verified 01/01/25 10:01 NSAIDS (Non-Steroidal Allergy Intermediate Swelling Verified 01/01/25 10:01 Anti-Inflamma Penicillins Allergy Intermediate Rash Verified 01/01/25 10:01 Exam Vital Signs Temp Pulse Resp BP Pulse Ox O2 Del Method O2 Flow Rate 97.3 F 106 H 26 H 139/65 H 99 High Flow Nasal Cannula 15 03/10/25 16:00 03/10/25 16:00 03/10/25 16:00 03/10/25 16:00 03/10/25 16:00 03/10/25 16:00 03/10/25 16:00 FiO2 30 03/10/25 16:00 Narrative Exam General: Alert and oriented x3. In no acute distress. Eyes: Pupils are equal and reactive to light bilaterally. HEENT: Atraumatic, normocephalic. No JVD noted. Mucosa moist. Cardiovascular: Normal S1 and soft S2,. Tachycardic, 3/6 ejection systolic murmur heard at aortic area, 3/6 holosystolic murmur heard on the mitral area and parasternal area, trace peripheral pitting edema noted. Respiratory: Mild respiratory distress on oxygen via nasal cannula, no use of accessory muscles, bilateral air entry present, minimal wheezing noted. No significant crackles. Abdomen: Soft, nontender, nondistended. Skin: No rash. Warm to touch. Musculoskeletal: No gross injuries. Able to move all 4 extremities. Neuro: Alert and oriented x3. No focal neuro deficits. Psych: Normal affect and mood Results Labs 03/11/25 05:39 03/10/25 04:21 Labs: Short CBC 03/10/25 Range/Units 04:21 WBC 14.3 H (3.6-11.0) Thou/mm3 Hgb 10.5 L (12.0-16.0) g/dL Hct 30.5 L (36.0-46.0) % Plt Count 291 D (140-440) Thou/mm3 BMP 03/10/25 04:21 Sodium 133 L Potassium 4.7 Chloride 91 L Carbon Dioxide 24.6 BUN 42 H Creatinine 6.9 H* Glucose 147 H Calcium 9.2 Cardiac Enzymes 03/10/25 Range/Units 04:21 Troponin I 0.141 H* (0.0-0.045) ng/mL Liver Function 03/10/25 Range/Units 04:21 Total Bilirubin 0.3 (0.3-1.2) mg/dL AST 40 H (0-34) U/L ALT 39 (10-49) U/L Alkaline Phosphatase 85 (46-116) U/L Albumin 3.7 (3.4-4.8) gm/dL ABG Interpretation ABG results: 03/09/25 03/09/25 03/10/25 07:50 18:22 09:05 ABG pH 7.45 ABG pCO2 39 ABG pO2 289 H ABG HCO3 27 H ABG O2 Saturation 101 H ABG Base Excess 2 VBG pH 7.39 7.49 VBG pCO2 49 37 D VBG pO2 70 H 68 H VBG Base Excess 4 H 5 H Assessment and Plan Additional Assessment & Plan Additional Plan: A 84-year-old female with a past medical history of severe aortic stenosis with a valve area of 0.5 cm?, moderate MR and TR, moderate PAH, preserved EF with diastolic dysfunction, end-stage renal disease on peritoneal dialysis for the last 4 to 5 years, Antonia's granulomatosis diagnosed 25 years ago, chronic severe asthma since her early 20s, history of multifocal atrial tachycardia, 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 1. Acute hypoxic respiratory failure mostly secondary to asthma exacerbation 2. Acute asthma exacerbation 3. Severe aortic stenosis with a valve area less than 0.5 cm? 4. End-stage renal disease on peritoneal dialysis for past 4 to 5 years mostly secondary to Antonia's granulomatosis 5. Abnormal thyroid function tests 6. Multifocal atrial tachycardia 7. Valvular heart disease with severe aortic stenosis, moderate MR and TR 8. Moderate pulmonary artery pretension with an RVSP of 55 mmHg 9. Chronic diastolic congestive heart failure 10. 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 Patient started on high-dose steroids with Solu-Medrol 60 mg every every 8 hours along with nebulizations and inhalers. Still continues to be on oxygen but no use of any accessory muscles. Combination of upper respiratory tract symptoms along with recent emotional stress. Also on IV antibiotics. Patient has been tachycardic On arrival and EKG reviewed. EKG shows irregularly irregular rhythm but most of the time is 100 to 130 bpm which is typical of multifocal atrial tachycardia. Has irregularly irregular rhythm with varying PP and CA intervals. 3 distinct P wave morphologies are also seen in the lead II. Also patient has underlying lung disease which could contribute's significantly for the multifocal atrial tachycardia Continue rate control with diltiazem 240 mg once daily as no beta-pratik can be given because of the as above. Will uptitrate the diltiazem to 360 mg once daily and if rate is not well-controlled. No anticoagulation required. Patient is mildly elevated troponins at 0.34 and 0.145. Troponin elevation mostly secondary to NSTEMI type II in the setting of supply/demand mismatch. Patient denies any Chest pain or chest pressure at the present moment. EKG showed marked without any acute ST-T changes history of ischemia. Patient is scheduled to have left and right heart cardiac catheterization on Wednesday as outpatient but cannot be done because of her acute hypoxic respiratory failure at the present point of time. Continue Plavix for now and high intensity statin. No beta-pratik because of asthma. No heparin drip required. Patient does have severe as noted above with a valve area of less than 0.5 cm?. Patient also has moderate MR and TR with moderate PAH noted on the previous echocardiogram in November 2024. Workup started as outpatient for the severe and as noted previously was scheduled for the left heart cardiac catheterization and right heart cardiac catheterization which will need to be postponed for now given her acute hypoxic respiratory failure. Will continue further workup of the severe as outpatient. Management of rest of the medical conditions as per primary team and other consultants. Thank you for the consult and allowing me to participate in the care of the patient. Cardiology will continue to follow. Jori Olivares M.D. Interventional Cardiology
--- NOTE | 2025-03-10 18:38 | XR_ITS ---
Examination: Thyroid sonography complete Technique: Grayscale sonographic images thyroid lobes Date and time: March 10, 2025, 0832 hrs. Indications: Neck pain today, bilateral thyroid nodules on CT chest study December 28, 2024 Findings: Right thyroid 5.0 cm. Midpole vascular nodule 3.1 x 2.7 x 2.7 cm. Left thyroid 4.0 cm Midpole vascular nodule 2.4 x 2.2 cm Impression: Bilateral vascular solid thyroid nodules, consider ultrasound-guided fine-needle aspiration of both nodules
[2025-03-10] MEDS: ATORVASTATIN CALCIUM 20 MG TABLET 40 MG PO (20:08)
--- NOTE | 2025-03-10 22:08 | PC.NURSE ---
I was notified by 1:1 sitter that respiratory therapist Aaron needed assistance, upon arriving to room, patient was having increase shortness of breath with high respirations of 33 with O2 saturations of 96%. patient was switched from high flow to Bipap. MD Mariana Brewer was notified and stated they will come up to bedside. -MD mariana Brewer at bedside, stated to stop peritoneal dialysis , and I stated I am not certified anything related to dialysis or how the peritoneal machine works . The chemical production engineer dialysis nurse was contacted and MD Mariana Brewer proceeded to stop dialysis. No other interventions at this time.
[2025-03-11] VITALS (18 sets, daily range): BP systolic 92–170; BP diastolic 60–98; PULSE 93–131; RESP 12–34; TEMP 36.1–37; O2SAT 92–100
--- NOTE | 2025-03-11 00:39 | PC.NURSE ---
call center analyst dialysis nurse Essence at bedside, pt daughter Dr Patel at bedside, MD Jah Brewer at bedside. Peritoneal dialysis was restarted to drain per dialysis nurse. Pt daughter stated it would be better to restart dialysis and watch patient when on dwell phase on peritoneal machine and recommends patient to sit high james's. MD Brewer stated it was okay to restart and finish peritoneal dialysis. Dialysis nurse spoke to Dr Brewer on how to stop machine and drain fluid in case patient gets symptomatic. no new orders at this time.
[2025-03-11] MEDS: MELATONIN 3 MG TABLET PO (00:59)
[2025-03-11] MEDS: ACETAMINOPHEN 325 MG TABLET 650 MG PO ×3 (02:19→17:08)
[2025-03-11] MEDS: LEVALBUTEROL RT 1.25 MG/0.5 ML NEBU INH ×6 (02:25→21:22)
[2025-03-11] MEDS: IPRATROPIUM RT 0.5 MG/ 2.5 ML NEBU INH ×7 (02:25→21:22)
[2025-03-11 06:19] LABS: Basophils # (Auto) 0.0 Thou/mm3 (0.0-0.2); Basophils % (Auto) 0 % (0-2.5); Eosinophils # (Auto) 0.0 Thou/mm3 (0.0-0.5); Eosinophils % (Auto) 0 % (0-10); Hematocrit 31.2 % (36.0-46.0); Hemoglobin 10.7 g/dL (12.0-16.0); Immature Granulocytes Auto 0.11 Thou/mm3 (0.00-0.00); Lymphocytes # (Auto) 1.0 Thou/mm3 (1.0-4.8); Lymphocytes % (Auto) 7 % (10-50); Mean Corpuscular HGB Conc 34.3 g/dl (31.0-37.0); Mean Corpuscular Hemoglobin 30.0 pg (25.0-35.0); Mean Corpuscular Volume 87 fL (80-100); Monocytes # (Auto) 0.6 Thou/mm3 (0.0-0.8); Monocytes % (Auto) 4 % (0-12); Neutrophils # (Auto) 13.3 Thou/mm3 (1.8-7.7); Neutrophils % (Auto) 88 % (37-80); Nucleated Red Blood Cell # 0.02 Thou/mm3 (0.00-0.00); Nucleated Red Blood Cell % 0 /100 WBC (0); Platelet Count 333 Thou/mm3 (140-440); RDW Standard Deviation 50.0 fL (36.4-46.3); Red Blood Count 3.57 Miln/mm3 (4.00-5.20); White Blood Count 15.0 Thou/mm3 (3.6-11.0)
[2025-03-11 06:36] LABS: Alanine Aminotransferase 63 U/L (10-49); Albumin, Serum 4.2 gm/dL (3.4-4.8); Albumin/Globulin Ratio 1.2 (1.2-2.2); Alkaline Phosphatase 93 U/L (46-116); Anion Gap 17 (7-16); Aspartate Amino Transferase 37 U/L (0-34); BUN/Creatinine Ratio 8 Ratio (12-20); Bilirubin,Total 0.3 mg/dL (0.3-1.2); Blood Urea Nitrogen 62 mg/dL (9-23); Calcium 9.4 mg/dL (8.3-10.6); Calcium (Corrected) 9.4 mg/dL (8.5-10.1); Carbon Dioxide 26.4 mMol/L (20.0-31.0); Chloride 90 mMol/L (98-107); Creatinine (Component) 7.3 mg/dL (0.6-1.3); Estimated Creatinine Clearance 4.1 mL/min (>60); Globulin 3.4 gm/dL (2.3-3.5); Glucose 216 mg/dL (74-106); Magnesium 2.9 mg/dL (1.6-2.6); Osmolality,Calculated 290 (275-295); Phosphorous 3.7 mg/dL (2.4-5.1); Potassium 3.7 mMol/L (3.4-5.1); Sodium 133 mMol/L (136-145); Total Protein 7.6 gm/dL (5.7-8.2); eGFR 5 See Note
[2025-03-11] MEDS: HEPARIN SOD INJ 5000 UNIT/ML VIAL SC ×2 (09:24→20:44)
[2025-03-11] MEDS: DILTIAZEM CD 120 MG CAPCR 240 MG PO (09:24)
[2025-03-11] MEDS: cefTRIAXone/D5w 1gm IV premix 1 GM/50 ML BAG IV (09:24)
[2025-03-11] MEDS: CLOPIDOGREL BISULFATE 75 MG TABLET PO (09:25)
[2025-03-11] MEDS: PANTOPRAZOLE 40 MG TABLET PO (09:25)
[2025-03-11] MEDS: AZITHROMYCIN INJ 500 MG in SODIUM CHLORIDE 0.9% 250 ML 250 ML 250 MG IV (09:42)
--- NOTE | 2025-03-11 09:54 | XR_ITS ---
Examination: AP chest single view Technique one AP portable semiupright chest single view Date and time: March 11, 2025, 1008 hrs. Comparison March 09, 2025 Indications: Shortness of breath chest pain beginning 3 days ago. Findings: Mild CHF. Moderate enlargement cardiac contour. Prominent vascular congestion. Early perihilar edema. Impression: Mild CHF
--- NOTE | 2025-03-11 10:01 | ESPR_ITS ---
Documentation for date of: 03/11/25 Subjective Subjective Interval history: Pt is seen and examined pt complaints of shortness of breath Exam Vital Signs Temp Pulse Resp BP Pulse Ox O2 Del Method O2 Flow Rate 97.9 F 93 20 127/65 96 High Flow Nasal Cannula 20 03/11/25 08:00 03/11/25 09:24 03/11/25 08:00 03/11/25 09:24 03/11/25 08:00 03/11/25 08:00 03/11/25 08:00 FiO2 25 03/11/25 08:00 Narrative Exam General: in respiratory distress chest : decreased breath sount bilateral abdomen: no tenderness ext no edema Objective Labs 03/13/25 05:36 03/13/25 05:36 Labs: Laboratory Results - last 24 hr 03/10/25 03/11/25 09:05 05:39 WBC 15.0 H RBC 3.57 L Hgb 10.7 L Hct 31.2 L MCV 87 MCH 30.0 MCHC 34.3 RDW Std Deviation 50.0 H Plt Count 333 D Neut % (Auto) 88 H Lymph % (Auto) 7 L [place] % (Auto) 4 Eos % (Auto) 0 Baso % (Auto) 0 Neut # (Auto) 13.3 H Lymph # (Auto) 1.0 [place] # (Auto) 0.6 Eos # (Auto) 0.0 Baso # (Auto) 0.0 Immature Gran # (Auto) 0.11 H Absolute Nucleated RBC 0.02 H Immature Gran % 1 H Nucleated RBC % 0 Sodium 133 L Potassium 3.7 D Chloride 90 L Carbon Dioxide 26.4 Anion Gap 17 H BUN 62 H Creatinine 7.3 H* Estim Creat Clear Calc 4.1 L eGFR 5 L* BUN/Creatinine Ratio 8 L Glucose 216 H D Calculated Osmolality 290 Calcium 9.4 Corrected Calcium 9.4 Phosphorus 3.7 Magnesium 2.9 H Total Bilirubin 0.3 AST 37 H ALT 63 H Alkaline Phosphatase 93 Total Protein 7.6 Albumin 4.2 D Globulin 3.4 Albumin/Globulin Ratio 1.2 Free T4 1.87 H ABG Interpretation ABG results: 03/09/25 03/09/25 03/10/25 07:50 18:22 09:05 ABG pH 7.45 ABG pCO2 39 ABG pO2 289 H ABG HCO3 27 H ABG O2 Saturation 101 H ABG Base Excess 2 VBG pH 7.39 7.49 VBG pCO2 49 37 D VBG pO2 70 H 68 H VBG Base Excess 4 H 5 H Assessment & Plan Assessment and plan (1) ESRD (end stage renal disease): Status: Acute Assessment and plan: c/w peritoneal dialysis daily at night daughter on bedside discussed plan in detail does not look like vol overload (2) Respiratory failure: Status: Acute (3) Asthma exacerbation: Status: Acute
[2025-03-11 10:25] LABS: Base Excess, Venous 4 (-3-3); O2 Saturation, Venous 72 % (96-97); PCO2, Venous 40 mmHg (36-56); PO2, Venous 39 mmHg (15-58); pH, Venous 7.45 (7.33-7.66)
--- NOTE | 2025-03-11 10:30 | PC.NURSE ---
familiy member brought 2 inhalers from home,notified ,look at inhalers and stated it is okay to have it at bedside.
[2025-03-11] MEDS: BUDESONIDE RT 0.5 MG/2 ML NEBU 1 MG INH ×2 (10:32→17:49)
[2025-03-11] MEDS: ALBUTEROL RT 2.5 MG/0.5 ML NEBU 15 MG INH (10:35)
[2025-03-11] MEDS: Magnesium Sulfate 2 GM Ivpb 2 GM/50 ML BAG IV ×2 (11:13→11:24)
--- NOTE | 2025-03-11 11:24 | ESCONSULT_ITS ---
HPI Pulmonology Consult Data of Consult Requesting Physician: Yennifer Martinez MD Primary Care Provider: Jori Woodruff Consult Narrative History of present illness: Patient is an 84 year old female with PMH significant for GPA c/b ESRD on PD and asthma, recent diagnosis of as well. Patient originally from [place], family history of asthma as well. Patient diagnosed in [place] where humidity would often bother her breathing. No definite allergen. Has lived in [place] for an extended period previously with little allergen effect. Was in [place] prior to this where her son lives. Recently returned here to be with her daughter and son has to travel for business often. Asthma exacerbations have been rare over the years. Now with severe persistent symptoms, unable to function without using albuterol/ Breztri inhalers. Breztri started a few months ago prior to her coming to [place]. Started by a pulmonolgist in [place]. Recovery Rn also felt extrapulmonary cause of dyspnea and sent for Echo which discovered the recently. Recent fall with fractures from osteoporosis and also recent admission for volume overload. Patient with peritoneal dialysis now for the past few years. Patient reports she drinks very little water but has significant weight gain that has persisted and feels more abdominal fullness with poor appetite now. GPA with variable serologies in past, though PR3+ even in our system. Remission achieved while in [facility] after prednisone and MTX. Renal disease manifested decades later after viral illness and biopsy at [facility] was inconclusive but repeat in [facility] showed findings consistent with diagnosis and rituximab/ steroid used but still progressed to ESRD despite this over time. Now post viral illness, daughter did trial prednisone at home without effect. Admitted now 48 hours with persistent symptoms. Significant phlegm production, no fevers, chills, or night sweats now. On fluid restriction but barely drinking a single bottle now. Has done PD. Bipap used only briefly, uncomfortable per patient. Having trouble with nebulization also. Transitioned and now remains on HHHFNC now. cc:: cc: Yennifer Martinez MD Review of Systems Review of Systems Narrative Review of Systems: Pertinent ROS completed with significant findings included in HPI above Past Medical History Past Medical History Comments PMH COMMENT: PMH, PSH, Fam HX, and Soc Hx reviewed with significant findings included in HPI above. Meds Home Medications and Allergies Home Medications ?Medication ?Instructions ?Recorded ?Confirmed ?Type atorvastatin 40 mg tablet 40 mg PO QDAY 08/15/1903/11 History acetaminophen 325 mg tablet 650 mg PO Q6H PRN fever or pain 03/11/25 03/11/25 History (Tactinal) diltiazem HCl 240 mg 240 mg PO DAILY 03/11/2502/28 History capsule,extended release 24 hr Allergies Allergy/AdvReac Type Severity Reaction Status Date / Time shrimp Allergy Severe Wheezing Verified 01/01/25 10:01 NSAIDS (Non-Steroidal Allergy Intermediate Swelling Verified 01/01/25 10:01 Anti-Inflamma Penicillins Allergy Intermediate Rash Verified 01/01/25 10:01 Exam Vital Signs Temp Pulse Resp BP Pulse Ox O2 Del Method O2 Flow Rate 97.9 F 117 H 32 H 127/65 99 High Flow Nasal Cannula 20 03/11/25 08:00 03/11/25 10:41 03/11/25 10:41 03/11/25 09:24 03/11/25 10:41 03/11/25 08:00 03/11/25 10:41 FiO2 21 03/11/25 10:41 Narrative Exam GEN: Moderate distress, gross rhonchi heard HEENT: EOMI, MM dry NECK: Accessory muscle use, no JVD, no stridor CVS: Tachycardia, S1/S2+, regular PULM: Wheezing and rhonchi throughout ABD: soft, distended, BS+, nontender EXT: no pedal edema SKIN: No lesions/ rash NEURO: Nonfocal on gross examination PSYCH: Margarita speaking with approrpiate mood/ affect Physical Exam Completion Physical Exam Complete?: Yes Results - Checker/Stocker Labs 03/12/25 04:32 03/12/25 04:32 Labs: Short CBC 03/11/25 Range/Units 05:39 WBC 15.0 H (3.6-11.0) Thou/mm3 Hgb 10.7 L (12.0-16.0) g/dL Hct 31.2 L (36.0-46.0) % Plt Count 333 D (140-440) Thou/mm3 BMP 03/11/25 05:39 Sodium 133 L Potassium 3.7 D Chloride 90 L Carbon Dioxide 26.4 BUN 62 H Creatinine 7.3 H* Glucose 216 H D Calcium 9.4 Liver Function 07/06/25 Range/Units 05:39 Total Bilirubin 0.3 (0.3-1.2) mg/dL AST 37 H (0-34) U/L ALT 63 H (10-49) U/L Alkaline Phosphatase 93 (46-116) U/L Albumin 4.2 D (3.4-4.8) gm/dL ABG Interpretation ABG results: 03/09/25 03/09/25 03/10/25 07:50 18:22 09:05 ABG pH 7.45 ABG pCO2 39 ABG pO2 289 H ABG HCO3 27 H ABG O2 Saturation 101 H ABG Base Excess 2 VBG pH 7.39 7.49 VBG pCO2 49 37 D VBG pO2 70 H 68 H VBG Base Excess 4 H 5 H 03/11/25 10:09 ABG pH ABG pCO2 ABG pO2 ABG HCO3 ABG O2 Saturation ABG Base Excess VBG pH 7.45 VBG pCO2 40 VBG pO2 39 D VBG Base Excess 4 H Assessment & Plan Additional Plan Additional Plan: Asthma, severe exacerbation ESRD on PD Severe Refractory to steroids makes me suspect non-RAD etiology now, triggered by recent viral illness Cardiac component likely with compounding of fluid overload with her ESRD for optimization Would recommend to discuss with renal about attempt of HD while IP for fluid removal Albuterol scheduled and PRN, no difference with use of LABA/LAMA at this time, she feels most comfortable with her inhalers and could continue both. Provider a spacer as well Magnesium and albuterol given this AM with limited relief, repeat PRN albuterol for hour long Has been in [place] for many years with asthma controlled, no eosinophilia of note but could be due to recent steroid use, highest in chart is 500 but last admission up to 400- these numbers are high enough for thresholds for use of biologics; check IgE as well No current sinus disease per report, consider CT sinuses given history of GPA Maintain on 60mg daily of prednisione, has osteoporosis and recent falls, higher dose if unresponsive in next few days for GPA specifically but evaluctae levels of markers first Checking ANCA again, conflicting biopsy history at [facility] but serologies have remained positive for years No superimposed infection, chest film consistent with pulmonary edema CTs in December reviewed, also show this, suggest related to cardiac etiology given timeline of , no bronchiectasis as alternate diagnosis to asthma/ COPD Can get OP PFTs for assessment for TAVR though may need to consider this sooner Provider Notation Provider Notation: Although this document has been carefully reviewed, there may still be some phonetic and other typographical errors. These errors are purely grammatical due to imperfections in the software program and should not be construed in any way to compromise the substance of the patient's medical care during this visit. Thank you for the opportunity and privilege in assisting you with this patient's care and management.
[2025-03-11] MEDS: GABAPENTIN 100 MG CAPSULE PO ×2 (12:20→20:44)
--- NOTE | 2025-03-11 14:00 | ESPR_ITS ---
Documentation for date of: 03/10/25 Subjective Subjective Interval history: Patient seen and examined at bedside. Patient continues to be short of breath and primary team did consult pulmonary. Possible Antonia's granulomatosis flare along with asthma exacerbation. On high-dose steroids along with nebulizations. IV magnesium given with improvement in shortness of breath and wheezing on high flow nasal cannula,. Still continues to be on peritoneal dialysis and was recommended hemodialysis previously and also during the present admission. Primary team to speak to the family. Patient was supposed to have a left and right heart cardiac catheterization given her history of severe but cannot be performed at the present moment because of her respiratory status. Will continue to monitor closely and fluid management as per nephrology as patient on dialysis. Abnormal thyroid function tests and primary team ordered further lab tests and also ultrasound of the thyroid Exam Vital Signs Temp Pulse Resp BP Pulse Ox O2 Del Method O2 Flow Rate 97.7 F 120 H 19 125/73 97 High Flow Nasal Cannula 22 03/12/25 04:00 03/12/25 04:00 03/12/25 04:00 03/12/25 04:00 03/12/25 04:00 03/12/25 00:00 03/12/25 02:10 FiO2 28 03/12/25 02:10 Narrative Exam General: Alert and oriented x3. In no acute distress. Eyes: Pupils are equal and reactive to light bilaterally. HEENT: Atraumatic, normocephalic. No JVD noted. Mucosa moist. Cardiovascular: Normal S1 and soft S2,. Tachycardic, 3/6 ejection systolic murmur heard at aortic area, 3/6 holosystolic murmur heard on the mitral area and parasternal area, trace peripheral pitting edema noted. Respiratory: Mild respiratory distress on oxygen via nasal cannula, no use of accessory muscles, bilateral air entry present, minimal wheezing noted. No significant crackles. Abdomen: Soft, nontender, nondistended. Skin: No rash. Warm to touch. Musculoskeletal: No gross injuries. Able to move all 4 extremities. Neuro: Alert and oriented x3. No focal neuro deficits. Psych: Normal affect and mood Objective Labs 03/11/25 05:39 03/11/25 05:39 Labs: Laboratory Results - last 24 hr 03/11/25 03/11/25 03/11/25 05:39 10:09 17:59 WBC 15.0 H RBC 3.57 L Hgb 10.7 L Hct 31.2 L MCV 87 MCH 30.0 MCHC 34.3 RDW Std Deviation 50.0 H Plt Count 333 D Neut % (Auto) 88 H Lymph % (Auto) 7 L Cottle % (Auto) 4 Eos % (Auto) 0 Baso % (Auto) 0 Neut # (Auto) 13.3 H Lymph # (Auto) 1.0 Cottle # (Auto) 0.6 Eos # (Auto) 0.0 Baso # (Auto) 0.0 Immature Gran # (Auto) 0.11 H Absolute Nucleated RBC 0.02 H Immature Gran % 1 H Nucleated RBC % 0 VBG pH 7.45 VBG pCO2 40 VBG pO2 39 D VBG O2 Sat (Tammie) 72 L VBG Base Excess 4 H Sodium 133 L Potassium 3.7 D Chloride 90 L Carbon Dioxide 26.4 Anion Gap 17 H BUN 62 H Creatinine 7.3 H* Estim Creat Clear Calc 4.1 L eGFR 5 L* BUN/Creatinine Ratio 8 L Glucose 216 H D Calculated Osmolality 290 Calcium 9.4 Corrected Calcium 9.4 Phosphorus 3.7 Magnesium 2.9 H Total Bilirubin 0.3 AST 37 H ALT 63 H Alkaline Phosphatase 93 C-Reactive Prot, Quant < 0.5 Total Protein 7.6 Albumin 4.2 D Globulin 3.4 Albumin/Globulin Ratio 1.2 ABG Interpretation ABG results: 03/09/25 03/09/25 03/10/25 07:50 18:22 09:05 ABG pH 7.45 ABG pCO2 39 ABG pO2 289 H ABG HCO3 27 H ABG O2 Saturation 101 H ABG Base Excess 2 VBG pH 7.39 7.49 VBG pCO2 49 37 D VBG pO2 70 H 68 H VBG Base Excess 4 H 5 H 03/11/25 10:09 ABG pH ABG pCO2 ABG pO2 ABG HCO3 ABG O2 Saturation ABG Base Excess VBG pH 7.45 VBG pCO2 40 VBG pO2 39 D VBG Base Excess 4 H Assessment & Plan A&P Narrative A 84-year-old female with a past medical history of severe aortic stenosis with a valve area of 0.5 cm?, moderate MR and TR, moderate PAH, preserved EF with diastolic dysfunction, end-stage renal disease on peritoneal dialysis for the last 4 to 5 years, Antonia's granulomatosis diagnosed 25 years ago, chronic severe asthma since her early 20s, history of multifocal atrial tachycardia, 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 1. Acute hypoxic respiratory failure mostly secondary to asthma exacerbation 2. Acute asthma exacerbation 3. Severe aortic stenosis with a valve area less than 0.5 cm? 4. End-stage renal disease on peritoneal dialysis for past 4 to 5 years mostly secondary to Antonia's granulomatosis 5. Abnormal thyroid function tests 6. Multifocal atrial tachycardia 7. Valvular heart disease with severe aortic stenosis, moderate MR and TR 8. Moderate pulmonary artery pretension with an RVSP of 55 mmHg 9. Chronic diastolic congestive heart failure 10. 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 Patient started on high-dose steroids with Solu- Medrol 60 mg every every 8 hours along with nebulizations and inhalers. Still continues to be on oxygen but no use of any accessory muscles. Combination of upper respiratory tract symptoms along with recent emotional stress. Also on IV antibiotics. Patient has been tachycardic On arrival and EKG reviewed. EKG shows irregularly irregular rhythm but most of the time is 100 to 130 bpm which is typical of multifocal atrial tachycardia. Has irregularly irregular rhythm with varying PP and [place] intervals. 3 distinct P wave morphologies are also seen in the lead II. Also patient has underlying lung disease which could contribute's significantly for the multifocal atrial tachycardia Continue rate control with diltiazem 240 mg once daily as no beta-pratik can be given because of the as above. Will uptitrate the diltiazem to 360 mg once daily and if rate is not well-controlled. No anticoagulation required. Patient is mildly elevated troponins at 0.34 and 0.145. Troponin elevation mostly secondary to NSTEMI type II in the setting of supply/demand mismatch. Patient denies any Chest pain or chest pressure at the present moment. EKG showed marked without any acute ST-T changes history of ischemia. Patient is scheduled to have left and right heart cardiac catheterization on Wednesday as outpatient but cannot be done because of her acute hypoxic respiratory failure at the present point of time. Continue Plavix for now and high intensity statin. No beta-pratik because of asthma. No heparin drip required. Patient does have severe as noted above with a valve area of less than 0.5 cm?. Patient also has moderate MR and TR with moderate PAH noted on the previous echocardiogram in November 2024. Workup started as outpatient for the severe and as noted previously was scheduled for the left heart cardiac catheterization and right heart cardiac catheterization which will need to be postponed for now given her acute hypoxic respiratory failure. Will continue further workup of the severe as outpatient. 03/11/2025: Patient continues to be short of breath and primary team did consult pulmonary. Possible Antonia's granulomatosis flare along with asthma exacerbation. On high-dose steroids along with nebulizations. IV magnesium given with improvement in shortness of breath and wheezing on high flow nasal cannula,. Still continues to be on peritoneal dialysis and was recommended hemodialysis previously and also during the present admission. Primary team to speak to the family. Patient was supposed to have a left and right heart cardiac catheterization given her history of severe but cannot be performed at the present moment because of her respiratory status. Will continue to monitor closely and fluid management as per nephrology as patient on dialysis. Abnormal thyroid function tests and primary team ordered further lab tests and also ultrasound of the thyroid Management of rest of the medical conditions as per primary team and other consultants. Thank you for the consult and allowing me to participate in the care of the patient. Cardiology will continue to follow. Jori Olivares M.D. Interventional Cardiology Time Spent With Patient Time: Total time spent is greater than 50% in coordination of care (as documented) at patient's floor/unit and/or counseling patient:
--- NOTE | 2025-03-11 17:25 | ESPR_ITS ---
Documentation for date of: 03/11/25 Subjective Subjective Interval history: Patient evaluated bedside, in acute respiratory distress, noted to have wheezing evidence of accessory muscles, trouble breathing, respiratory rate in the high 30s, saturating well on 20 L high flow nasal, oxygen, but increased work of breathing. Blood gas was ordered which showed pH and PO2 within normal range, given methylprednisone 125 mg x 1, ordered hour-long nebulization with albuterol, added budesonide nebulization. Consulted ICU/tool maker apprentice Dr. 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 Agreed with IV steroids for now, but patient might require increasing doses if acute flare of Antonia's granulomatosis. Also considering possibility of cardiac asthma given, severe aortic stenosis leading to worsening of asthma. Patient might benefit from early aortic valve replacement as soon as clinical condition is stable. Also consider trial of hemodialysis for adequate ultrafiltration as peritoneal dialysis unable to remove adequate fluid. Also noted component of anxiety during evaluation of the patient, patient is very particular about her inhalers, allowed patient to use her home inhalers but we will continue nebulizations as scheduled. Will add gabapentin 100 mg twice daily. Also noted, patient only drank 200 mL of water, she is allowed 1500 mL of water per day, instructed nursing staff to encourage water intake, as being on high flow and during respiratory distress patient is feeling excessively thirsty and uncomfortable. Exam Vital Signs Temp Pulse Resp BP Pulse Ox O2 Del Method O2 Flow Rate 97.5 F 125 H 19 92/60 94 L High Flow Nasal Cannula 20 03/11/25 16:00 03/11/25 16:03/11/25 16:00 03/11/25 16:00 03/11/25 16:00 03/11/25 16:00 03/11/25 16:00 FiO2 21 03/11/25 16:00 Narrative Exam General Appearance: Alert & Oriented X3, in mild distress due to respiratory discomfort, currently seen on HFNC O2 20 L/min HEENT: Skull symmetrical and atraumatic. Conjunctivae pikn and moist. Pupils equal, round, reactive to light and accommodation (PERRL). External ear without lesion or discharge. Straight, nares patient, mucosa pink, no discharge. No thyroid nodule appreciated. No cervical lymphadenopathy. Cardio: Tachycardic Rate and Rhythm with S1 and S2 heart sounds. possible systolic murmur noted, difficult to distinguish given rhonchi. No bruits on carotid auscultation. No peripheral edema or cyanosis. Lungs: Symmetric, rapid, respiratory rate, tachypnea. Chest and back non-tender. Reduced breath sounds vesicular with diffuse rhonchi & wheezing bilaterally. Abdomen: Mildly tender and distended, Normal Reactive Bowel Sounds Neuro: Alert, cooperative, oriented to person, place, and time. Speech clear. CN grossly intact. Upper motor strength 5/5 and Lower motor strength 5/5. Sensation intact. Objective Labs 03/16/25 03:16 03/16/25 03:16 Labs: Laboratory Results - last 24 hr 03/11/25 03/11/25 05:39 10:09 WBC 15.0 H RBC 3.57 L Hgb 10.7 L Hct 31.2 L MCV 87 MCH 30.0 MCHC 34.3 RDW Std Deviation 50.0 H Plt Count 333 D Neut % (Auto) 88 H Lymph % (Auto) [address] [place] % (Auto) 4 Eos % (Auto) 0 Baso % (Auto) 0 Neut # (Auto) 13.3 H Lymph # (Auto) 1.0 [place] # (Auto) 0.6 Eos # (Auto) 0.0 Baso # (Auto) 0.0 Immature Gran # (Auto) 0.11 H Absolute Nucleated RBC 0.02 H Immature Gran % 1 H Nucleated RBC % 0 VBG pH 7.45 VBG pCO2 40 VBG pO2 39 D VBG O2 Sat (Tammie) 72 L VBG Base Excess 4 H Sodium 133 L Potassium 3.7 D Chloride 90 L Carbon Dioxide 26.4 Anion Gap 17 H BUN 62 H Creatinine 7.3 H* Estim Creat Clear Calc 4.1 L eGFR 5 L* BUN/Creatinine Ratio 8 L Glucose 216 H D Calculated Osmolality 290 Calcium 9.4 Corrected Calcium 9.4 Phosphorus 3.7 Magnesium 2.9 H Total Bilirubin 0.3 AST 37 H ALT 63 H Alkaline Phosphatase 93 Total Protein 7.6 Albumin 4.2 D Globulin 3.4 Albumin/Globulin Ratio 1.2 ABG Interpretation ABG results: 03/09/25 03/09/25 03/10/25 07:50 18:22 09:05 ABG pH 7.45 ABG pCO2 39 ABG pO2 289 H ABG HCO3 27 H ABG O2 Saturation 101 H ABG Base Excess 2 VBG pH 7.39 7.49 VBG pCO2 49 37 D VBG pO2 70 H 68 H VBG Base Excess 4 H 5 H 03/11/25 10:09 ABG pH ABG pCO2 ABG pO2 ABG HCO3 ABG O2 Saturation ABG Base Excess VBG pH 7.45 VBG pCO2 40 VBG pO2 39 D VBG Base Excess 4 H Quality Measures Quality Measures none Advance care planning discussed with:: patient Assessment & Plan Assessment Current Active Medications: Generic Name Dose Route Start Last Admin Trade Name Freq PRN Reason Stop Dose Admin Acetaminophen 650 mg 03/09/25 14:41 03/11/25 17:08 Acetaminophen 325 Mg Tablet PO 04/08/25 14:40 650 mg Q6H PRN Administration Mild Pain(1-3) or Fever >100.3 Hydrocodone Bitart/Acetaminophen 1 tab 03/09/25 14:41 Hydrocodone/Apap 5/325 Tablet PO 03/14/25 14:40 Q4HR PRN PAIN SCALE 4-10(Mod-Sev Albuterol 5 mg 03/11/25 19:00 Albuterol Rt 2.5 Mg/0.5 Ml Nebu INH 04/10/25 18:59 Q6HRRT SABRINA Atorvastatin Calcium 40 mg 03/09/25 21:00 03/10/25 20:08 Atorvastatin Calcium 20 Mg Tablet PO 04/08/25 20:59 40 mg HS SABRINA Administration Budesonide 1 mg 03/11/25 10:00 03/11/25 10:32 Budesonide Rt 0.5 Mg/2 Ml Nebu INH 04/10/25 09:59 1 mg BIDRT SABRINA Administration Clopidogrel Bisulfate 75 mg 03/10/25 09:00 03/11/25 09:25 Clopidogrel Bisulfate 75 Mg Tablet PO 04/09/25 08:59 75 mg QDAY SABRINA Administration Diltiazem HCl 240 mg 03/10/25 09:00 03/11/25 09:24 Diltiazem Cd 120 Mg Capcr PO 04/09/25 08:59 240 mg QDAY SABRINA Administration Gabapentin 100 mg 03/11/25 12:15 03/11/25 12:20 Gabapentin 100 Mg Capsule PO 04/10/25 12:14 100 mg BID SABRINA Administration Heparin Sodium (Porcine) 5,000 unit 03/09/25 21:00 03/11/25 09:24 Heparin Sod Inj 5000 Unit/Ml Vial SC 03/23/25 20:59 5,000 unit BID SABRINA Administration Hydroxyzine HCl 25 mg 03/09/25 21:00 03/10/25 20:08 Hydroxyzine Hcl 25 Mg Tablet PO 04/08/25 20:59 25 mg HS SABRINA Administration Azithromycin 500 mg/ Sodium 250 mls @ 250 mls/hr 03/10/25 09:00 03/11/25 09:42 Chloride IV 03/12/25 08:59 250 mls/hr QDAY SABRINA Administration Ipratropium [place] 0.5 mg 03/10/25 15:00 03/11/25 14:20 Ipratropium Rt 0.5 Mg/ 2.5 Ml Nebu INH 04/09/25 14:59 0.5 mg Q4HRRT SABRINA Administration Levalbuterol HCl 1.25 mg 03/10/25 15:00 03/11/25 14:20 Levalbuterol Rt 1.25 Mg/0.5 Ml Nebu INH 04/09/25 14:59 1.25 mg Q4HRRT SABRINA Administration Melatonin 3 mg 03/09/25 23:18 03/11/25 00:59 Melatonin 3 Mg Tablet PO 04/09/25 20:59 3 mg HS PRN Administration insomnia Methylprednisolone Sodium Succinate 60 mg 03/11/25 21:00 Methylprednisolone Sod Succ 40 Mg Vial IVP 03/18/25 20:59 BID SABRINA Ondansetron HCl 4 mg 03/09/25 14:41 Ondansetron Inj 2 Mg/Ml Inj 2 Ml IVP 04/08/25 14:40 Q6H PRN NAUSEA OR VOMITING Protocol Pantoprazole Sodium 40 mg 03/10/25 09:00 03/11/25 09:25 Pantoprazole 40 Mg Tablet PO 04/09/25 08:59 40 mg QDAY SABRINA Administration Sennosides 1 tab 03/10/25 09:00 03/11/25 09:25 Senna Tablet PO 04/09/25 08:59 1 tab QDAY SABRINA Administration Protocol Sodium Chloride 3 ml 03/11/25 10:22 Sodium Chloride Rt Annika 0.9% 3 Ml Nebu INH 04/10/25 10:21 PRN PRN SOLN Sodium Chloride 3 ml 03/11/25 16:26 Sodium Chloride Rt Annika 0.9% 3 Ml Nebu INH 04/10/25 16:25 PRN PRN SOLN Plan Patient is an 84-year-old female with a past medical history CHF HFpEF 55 to 60% (11/23/2024), systolic dysfunction, moderate PAH 55, moderate to severe with V-max 3.8, ESRD status post peritoneal dialysis dialysis, chronic asthma since early 20s, 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 #Acute hypoxic respiratory failure secondary to asthma exacerbation #Acute on Chronic Asthma exacerbation #Granulomatosis w/ Polyangiitis-formerly known as Antonia's Patient presented to the ED via EMS with a two day history of worsening shortness of breath. Patient's family noticed the patient wheezing while receiving dialysis and called EMS. While in the emergency room department, several episode of spO2 80s on nasal cannula-->transitioned to Bipap. While in ER, increased work of breathing, RR high 30s/40s with abdominal breathing noted, increase in FiO 10-->30. Repeat ABG pH 7.45, pO2 289, HC03 27-->decrease in FIO2 to 20. Daughter at bedside noted an URI several days ago and is concern this may have triggered current exacerbation. Plan: - Continue HFNC, currently at 20 L/min, attempt to wean down oxygen. - Methylprednisone 60 mg 3 times daily - Continuous hour-long nebulization x 1, will continue with Xopenex and ipratropium nebulization every 4 hour - IV antibiotics with ceftriaxone and azithromycin - Consider MORRIS levels/ESR to determine possible exacerbation as relapses with Antonia are common, specially with reported coffee ground emesis - 03/10/2025 venous blood gas shows normal pH, PCO2 and PO2 within normal range, on high flow oxygen - 03/11/2025 patient evaluated bedside, in acute respiratory distress, noted to have wheezing evidence of accessory muscles, trouble breathing, respiratory rate in the high 30s, saturating well on 20 L high flow nasal, oxygen, but increased work of breathing. Blood gas was ordered which showed pH and PO2 within normal range, given methylprednisone 125 mg x 1, ordered hour-long nebulization with albuterol, added budesonide nebulization. Consulted ICU/tool maker apprentice Dr. 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 Agreed with IV steroids for now, but patient might require increasing doses if acute flare of Antonia's granulomatosis. Also considering possibility of cardiac asthma given, severe aortic stenosis leading to worsening of asthma. Patient might benefit from early aortic valve replacement as soon as clinical condition is stable. Also consider trial of hemodialysis for adequate ultrafiltration as peritoneal dialysis unable to remove adequate fluid. #Concern for Hyperthyroidism Noted suppressed TSH and elevated T4 levels, limited utility of thyroid function test during acute illness and hospitalization. the patient will eventually require repeat thyroid function test once discharged to confirm thyroid disorders. Also patient has longstanding history of MAT likely secondary to pulmonary disorder, less likely influenced by thyroid. -ordered US thyroid to r/o nodules, -TSI/TSH-R Antibodies and TPO antibodies. - Repeat thyroid function testing in 3 to 4 weeks after discharge, and follow-up with closing machine operator #Acute on Chronic Congestive Heart Failure #CHF HFpEF 55-60% (11/2024) #Mild Pulmonary Vascular Congestion #Moderate to Severe Aortic Stenosis, AV vmax 3.8 m #Severe Mitral Regurgitation #Moderate PAH, 55 mmHg Patient likely acute on chronic congestive heart failure this, may only be mild exacerbation as pulmonary vascular congestion was less prominent as compared to other episode. Current BNP of 345 vs previous CHF exacerbation of 1691.Acute on chronic CHF exacerbation likely triggered by asthma exacerbation. -BNP 345 -Chest x-ray (03/10/2025): Mild chronic heart failure pattern, prominent vascular congestion-overall mild chornic heart failure Echo completed 11/30/24:Normal LV size and function. EF 55-60%. Diastolic dysfunction present but cannot be graded. Normal RV size and function. Estimated RVSP moderately elevated RVSP 55 mm hg. Moderate to Severe . AV vmax 3.8 m/s, Mean PG 38 mm hg. LATRICE 0.5 sq cm. Severe posterior mac AND moderate anterior MAC with mild mitral stenosis mean PG 5 mm hg. Moderate to sevre MR. moderate TR and mild to moderate AI. Moderately dilated LA and mildly dilated RA. Plan: -Lasix 40 mg IV X 1 (03/10/2025) -TSH -Lipid Panel -A1c -Strict Ins and Outs -Fluid Restrictions -Oxygen support - Cardiology consulted to Dr. Campa is placed, pending recommendations - Continue Plavix #Atrial Fibrillation, rvr, possible #EKG Abnormalities Patient has a past medical history of previous reported Atrial Fibrillation, per daughter, was told it was less likely atrial fibrillation, decision was made for no Eliquis and only Plavix on board for history of CVA. This EKG read A.fib w/ rvr but not all leads irregular and some noted with possible p waves. r waves present, no deep q waves noted. V1/V2 possible t wave abnormalities. Plan -uncommon examination in ER, tele noted to be in sinus -Diltiazem 240 mg PO X 1 in ER -Diltiazem 240 mg PO scheduled -obtain cardiology consult. #Mild Troponemia #NSTEMI, type II likely demand ischemia Mild elevation in Troponin likely in the setting of demand ischemia from asthma exacerbation. Denied chest pain, palpitations, or chest pressure. No st elevation noted. Plan -Repeat Troponin peaked at 0.143. #ESRD on peritoneal dialysis #ESRD secondary to Granulomatosis Per patient history, follows Dr. Amezcua and Dr. Coley. Patient develoepd ESRD several years ago likely secondary to Granulomatosis. Peritoneal dialysis, daily. Consult nephrology for scheduled daily dialysis. Plan -Strict in and outs. -Peritoneal dialysis -Avoid nephrotoxins, consider renal dosing -Nephrology Consulted, Dr. Amezcua, appreciate recommendations. - Peritoneal fluid culture ordered, started IV ceftriaxone, #Single Episode of Hematemsis #Normocytic Normochromic Anemia Pertinent lab values: MCV 88 RBC 3.94 Hgb 11.9 Hct 34.6. Given past medical history of GERD, consider gastric ulcers-given reported coffee ground emesis vs Granulomatosis flare vs lower GI bleed. Plan: -Monitor hgb >7 goal -Consider occult blood AM, if worsening drop -Consider gastroenterology consult with Dr. Abraham, if repeat episodes of coffee ground emesis #History of CVA Past medical history of CVA Plan -HOLD plavix given coffee ground emesis. #GERD #Gastritis (?) Per the patient's daughter, the patient recently experienced coffee ground emesis w/ history of GERD. Plan: Start Pantoprazole 40 mg PO QD-->Transition to Pantoprazole 40 mg IV BID (AM) #history of Fracture Neck of Right Femur Patient underwent surgical repair of closed right hip neck fracture on 12/01/[address] Lee Plan: Monitor for possible rehabilitation DVT prophylaxis: No DVT prophylaxis in setting of suspected GI bleed and anemia GI prophylaxis: IV Protonix qday Diet: Clear liquid diet Lines: Peripheral IV Code status: Full code The patient's plan was discussed with attending Dr. Juan Neely PGY3 Attending Provider Attestation/Addendum 84-year-old female with multiple comorbidities including heart failure with preserved EF with EF 55-60%, severe aortic stenosis with V-max 3.8, pulmonary hypertension, granulomatosis with polyangiitis with subsequent end-stage renal disease on peritoneal dialysis history of ischemic CVA with right-sided hemiparesis, hypertension, hyperlipidemia presented to the ER with shortness of breath found to have acute hypoxic respiratory failure multifactorial including asthma exacerbation and fluid overload state. Initially, patient did require BiPAP and advised to continue IV steroids, IV antibiotic therapy and plan for peritoneal dialysis. Furthermore, patient also has moderate to severe aortic stenosis with pulmonary arterial hypertension and plan to consult cardiology. Overnight, patient continues to be on high flow nasal cannula and plan to continue IV steroids, IV antibiotic and peritoneal dialysis. Appreciate cardiology and nephrology input. I reviewed above note and agree with findings and plans. I have also personally examined the patient with medicine team and went over assessment and plan with medical team including machine learning intern and resident physician.
[2025-03-11 19:24] LABS: C-Reactive Protein < 0.5 mg/dL (0.0-0.9)
[2025-03-11] MEDS: ATORVASTATIN CALCIUM 20 MG TABLET 40 MG PO (20:43)
--- NOTE | 2025-03-11 22:25 | PC.NURSE ---
contacted Dr Amezcua about order for tonight peritoneal dialysis for patient since there is no order, Dr Amezcua stated have the equipment validation engineer dialysis nurse call me . no interventions at this time.
[2025-03-12] VITALS (17 sets, daily range): BP systolic 117–156; BP diastolic 73–96; PULSE 94–136; RESP 16–26; TEMP 36.4–36.8; O2SAT 89–99; BMI 27.8
--- NOTE | 2025-03-12 00:13 | PC.NURSE ---
production honing machine operator dialysis nurse Essence at bedside.
[2025-03-12] MEDS: LEVALBUTEROL RT 0.63 MG/3 ML NEBU INH (00:43)
[2025-03-12] MEDS: LEVALBUTEROL RT 1.25 MG/0.5 ML NEBU INH ×6 (02:03→22:36)
[2025-03-12] MEDS: IPRATROPIUM RT 0.5 MG/ 2.5 ML NEBU INH ×6 (02:03→22:36)
[2025-03-12] MEDS: BUDESONIDE RT 0.5 MG/2 ML NEBU 1 MG INH ×2 (06:09→18:45)
[2025-03-12 06:26] LABS: Basophils # (Auto) 0.0 Thou/mm3 (0.0-0.2); Basophils % (Auto) 0 % (0-2.5); Eosinophils # (Auto) 0.0 Thou/mm3 (0.0-0.5); Eosinophils % (Auto) 0 % (0-10); Hematocrit 29.5 % (36.0-46.0); Hemoglobin 10.1 g/dL (12.0-16.0); Immature Granulocytes Auto 0.15 Thou/mm3 (0.00-0.00); Lymphocytes # (Auto) 0.8 Thou/mm3 (1.0-4.8); Lymphocytes % (Auto) 6 % (10-50); Mean Corpuscular HGB Conc 34.2 g/dl (31.0-37.0); Mean Corpuscular Hemoglobin 29.9 pg (25.0-35.0); Mean Corpuscular Volume 87 fL (80-100); Monocytes # (Auto) 0.5 Thou/mm3 (0.0-0.8); Monocytes % (Auto) 4 % (0-12); Neutrophils # (Auto) 11.5 Thou/mm3 (1.8-7.7); Neutrophils % (Auto) 89 % (37-80); Nucleated Red Blood Cell # 0.00 Thou/mm3 (0.00-0.00); Nucleated Red Blood Cell % 0 /100 WBC (0); Platelet Count 298 Thou/mm3 (140-440); RDW Standard Deviation 49.7 fL (36.4-46.3); Red Blood Count 3.38 Miln/mm3 (4.00-5.20); White Blood Count 12.9 Thou/mm3 (3.6-11.0)
[2025-03-12 07:04] LABS: Alanine Aminotransferase 82 U/L (10-49); Albumin, Serum 3.9 gm/dL (3.4-4.8); Albumin/Globulin Ratio 1.3 (1.2-2.2); Alkaline Phosphatase 85 U/L (46-116); Anion Gap 18 (7-16); Aspartate Amino Transferase 43 U/L (0-34); BUN/Creatinine Ratio 9 Ratio (12-20); Bilirubin,Total 0.2 mg/dL (0.3-1.2); Blood Urea Nitrogen 69 mg/dL (9-23); Calcium 8.4 mg/dL (8.3-10.6); Calcium (Corrected) 8.5 mg/dL (8.5-10.1); Carbon Dioxide 23.4 mMol/L (20.0-31.0); Chloride 90 mMol/L (98-107); Creatinine (Component) 7.7 mg/dL (0.6-1.3); Estimated Creatinine Clearance 4.1 mL/min (>60); Globulin 3.0 gm/dL (2.3-3.5); Glucose 218 mg/dL (74-106); Magnesium 3.2 mg/dL (1.6-2.6); Osmolality,Calculated 289 (275-295); Phosphorous 4.1 mg/dL (2.4-5.1); Potassium 3.7 mMol/L (3.4-5.1); Sodium 131 mMol/L (136-145); Total Protein 6.9 gm/dL (5.7-8.2); eGFR 5 See Note
[2025-03-12 09:55] LABS: Base Excess 2 (-3-3); HCO3 27 mEq/L (20-26); Inspired Oxygen, FIO2 26 %; O2 Saturation 95 % (91-98); PCO2 44 mmHg (32.0-48.0); PO2 80 mmHg (83-108); pH, Arterial 7.40 (7.35-7.45)
[2025-03-12 09:56] LABS: Allen Test Performed/OK; Puncture Site Left Radial
[2025-03-12] MEDS: DILTIAZEM CD 120 MG CAPCR 240 MG PO (09:58)
[2025-03-12] MEDS: PANTOPRAZOLE 40 MG TABLET PO (09:59)
[2025-03-12] MEDS: CLOPIDOGREL BISULFATE 75 MG TABLET PO (09:59)
[2025-03-12] MEDS: HEPARIN SOD INJ 5000 UNIT/ML VIAL SC ×2 (09:59→21:22)
[2025-03-12 10:00] LABS: Lactate (Lactic Acid) 2.3 mMol/L (0.4-2.0)
--- NOTE | 2025-03-12 10:49 | ECHO_ITS ---
Transthoracic Echo Report Ht (in): 57 Wt (lb): 117 Exam Location: Echo Lab Status: Inpatient Spacecraft Systems Engineer: Jeannie Mendez Indications: Procedure Performed: BP: 125 / 73 HR: 95 Technical Quality: Adequate MEASUREMENTS (Male / Female) Normal Values 2D ECHO LV Diastolic Diameter PLAX 3.9 cm 4.2 - 5.9 / 3.9 - 5.3 cm LV Systolic Diameter PLAX 1.8 cm IVS Diastolic Thickness 1.1 cm 0.6 - 1.0 / 0.6 - 0.9 cm LVPW Diastolic Thickness 0.9 cm 0.6 - 1.0 / 0.6 - 0.9 cm LV Relative Wall Thickness 0.5 LVOT Diameter 1.8 cm LA Volume Index 84.1 cm?/m? 16 - 28 cm?/m? DOPPLER AV Peak Velocity 349.3 cm/s AV Peak Gradient 48.8 mmHg AV Mean Gradient 29.0 mmHg AV Velocity Time Integral 74.2 cm AI Peak Velocity 343.0 cm/s AI Peak Gradient 47.1 mmHg AI Pressure Half Time 307.0 ms LVOT Peak Velocity 98.3 cm/s LVOT Peak Gradient 3.9 mmHg LVOT Velocity Time Integral 20.7 cm LVOT Cardiac Index 3390.2 cm?/min?m? AV Area Cont Eq vti 0.7 cm? AV Area Cont Eq pk 0.7 cm? MV Peak Velocity 188.0 cm/s MV Peak Gradient 14.1 mmHg MV Mean Velocity 132.0 cm/s MV Mean Gradient 8.0 mmHg MV Area PHT 1.9 cm? MR Peak Velocity 532.3 cm/s MR Peak Gradient 113.3 mmHg TR Peak Velocity 246.5 cm/s TR Peak Gradient 24.3 mmHg PV Peak Velocity 110.3 cm/s PV Peak Gradient 4.9 mmHg FINDINGS Left Ventricle Normal left ventricular size and systolic function with no obvious regional wall motion abnormalities. Mild ventricular septal hypertrophy.Not able to determine diastology due to AFIB. The ejection fraction is visually estimated at 65 %. Right Ventricle The right ventricle is normal in size and systolic function. The estimated right ventricular systolic pressure, 24 mmHg. Left Atrium The left atrial cavity size is severely increased. Right Atrium The right atrium is normal by two-dimensional imaging, color flow and Doppler imaging with no structural abnormalities, no thrombus formation present. Atrial Septum The interatrial septum appears normal with no evidence of a shunt. Aorta The aorta is normal by two-dimensional, color flow and Doppler interrogation. Mitral Valve Moderate to severe annulus as well as leaflet calcification. Moderate mitral stenosis with MPG 8mmHg. Moderate mitral regurgitation. Aortic Valve Moderate to severe aortic valve leaflet calcification. Moderate to severe aortic stenosis. MPG 29mmHg, VMax 3.43m/s, LATRICE .7cm2. Trace aortic regurgitation. Tricuspid Valve The tricuspid valve is normal by two-dimensional, color flow and Doppler interrogation. There is moderate tricuspid regurgitation. Pulmonic Valve The pulmonic valve is not well visualized. There is no significant pulmonic valve regurgitation. Vessels The pulmonary artery appears normal. The inferior vena cava pulmonary and hepatic veins are not visualized. Pericardium The pericardium is normal by two-dimensional imaging. There is no significant pericardial effusion. CONCLUSIONS Indications: SOB and history of severe Normal LV size and function. EF 60-65%. Diastolic dysfunction present but cannot be graded due to arrhythymia. Normal RV size and function. Estimated RVSP moderately elevated RVSP 50-55 mm hg. Moderate to Severe . AV vmax 3.8 m/s, Mean PG 38 mm hg. LATRICE 0.5 sq cm. Severe posterior mac AND moderate anterior MAC with mild mitral stenosis mean PG 6 mm hg. Moderate MR and moderate TR . Mild to moderate AI. Moderately dilated LA and mildly dilated RA. No pericardial effusion. Jori Olivares (Electronically Signed) Final Date: 12 March 2025 19:15
[2025-03-12 12:57] LABS: Reflex Lactate? Y
--- NOTE | 2025-03-12 13:20 | PD.RESPRO ---
Documentation for date of: 03/12/25 Subjective Subjective Interval history: Senior Attestation: Patient examined at bedside. Patient continues to have decreased bilateral airway entry. Patient is currently on high flow flow 20 liters. Methylprednisolone titrated down after 72 hours from 60 TID to 60 mg IV BID. Pending ANCA, TSI, and Thyroid Peroxidase Antibodies, and IgE serum. Blood culture negative after 48 hours, MRSA screen negative, and Peritoneal Dialysis Culture pending. Repeat Echo: EF 60-65%, Diastolic Dysfucntion and Moderate to Severe w/ vmas 3.8. [place] on hold. Patient was seen at bedside in both the morning and afternoon and was noted to be more somnolent in the morning, possibly due to starting gabapentin. Patient still noted to be in acute respiratory distress. Patient was interviewed in conjunction with her daughter, Dr. Parker. Patient's daughter noted that the patient seemed to be doing better today. [facility] to hold gabapentin today to improve drowsiness. Patient satting at 96 on 20 high flow nasal oxygen with respiratory rate 20, compared to high 30s yesterday. FiO2 reduced from 66 back to 20.Patient was noted to have glucose 218 after addtional methylprednisone 125 mg dose and was put on sliding scale insulin. Patient underwent peritoneal dialysis today with consideration for possible hemodialysis. Patient was encouraged to increase water intake, as patient can feel thirsty and uncomfortable while on high flow oxygen. Exam Vital Signs Temp Pulse Resp BP Pulse Ox O2 Del Method O2 Flow Rate 98.0 F 114 H 20 117/84 96 High Flow Nasal Cannula 20 03/12/25 13:07 03/12/25 13:07 03/12/25 13:07 03/12/25 13:07 03/12/25 12:00 03/12/25 12:00 03/12/25 12:00 FiO2 66 03/12/25 12:00 Narrative Exam General Appearance: Alert & Oriented X3, well-nourished female who is lying in bed in mild distress due to respiratory discomfort. HFNC 20 L. HEENT: Skull symmetrical and atraumatic. Conjunctivae pink and moist. Pupils equal, round, reactive to light and accommodation (PERRL). External ear without lesion or discharge. Straight, nares patient, mucosa pink, no discharge. No thyroid nodule appreciated. No cervical lymphadenopathy. Cardio: Normal Rate and Rhythm with S1 and S2 heart sounds. No murmurs or extra heart sounds auscultated. No bruits on carotid auscultation. No peripheral edema or cyanosis. Lungs: Symmetric with good expansion. Chest and back non-tender. Breath sounds vesicular without crackles, wheezing or rhonchi Abdomen: Non-tender, Non-distended, Normal Reactive Bowel Sounds Neuro: Alert, cooperative, oriented to person, place, and time. Speech clear. CN grossly intact. Upper motor strength 5/5 and Lower motor strength 5/5. Sensation intact. Objective Labs 03/16/25 03:16 03/16/25 03:16 Labs: Laboratory Results - last 24 hr 03/11/25 03/12/25 03/12/25 17:59 04:32 09:44 WBC 12.9 H RBC 3.38 L Hgb 10.1 L Hct 29.5 L MCV 87 MCH 29.9 MCHC 34.2 RDW Std Deviation 49.7 H Plt Count 298 D Neut % (Auto) 89 H Lymph % (Auto) 6 L [place] % (Auto) 4 Eos % (Auto) 0 Baso % (Auto) 0 Neut # (Auto) 11.5 H Lymph # (Auto) 0.8 L [place] # (Auto) 0.5 Eos # (Auto) 0.0 Baso # (Auto) 0.0 Immature Gran # (Auto) 0.15 H Absolute Nucleated RBC 0.00 Immature Gran % 1 H Nucleated RBC % 0 Puncture Site Left Radial ABG pH 7.40 ABG pCO2 44 ABG pO2 80 L D ABG HCO3 27 H ABG O2 Saturation 95 ABG Base Excess 2 FiO2 26 Sodium 131 L Potassium 3.7 Chloride 90 L Carbon Dioxide 23.4 Anion Gap 18 H BUN 69 H Creatinine 7.7 H* Estim Creat Clear Calc 4.1 L eGFR 5 L* BUN/Creatinine Ratio 9 L Glucose 218 H Calculated Osmolality 289 Lactic Acid Calcium 8.4 Corrected Calcium 8.5 Phosphorus 4.1 Magnesium 3.2 H Total Bilirubin 0.2 L AST 43 H ALT 82 H Alkaline Phosphatase 85 C-Reactive Prot, Quant < 0.5 Total Protein 6.9 Albumin 3.9 Globulin 3.0 Albumin/Globulin Ratio 1.3 03/12/25 09:51 WBC RBC Hgb Hct MCV MCH MCHC RDW Std Deviation Plt Count Neut % (Auto) Lymph % (Auto) [place] % (Auto) Eos % (Auto) Baso % (Auto) Neut # (Auto) Lymph # (Auto) [place] # (Auto) Eos # (Auto) Baso # (Auto) Immature Gran # (Auto) Absolute Nucleated RBC Immature Gran % Nucleated RBC % Puncture Site ABG pH ABG pCO2 ABG pO2 ABG HCO3 ABG O2 Saturation ABG Base Excess FiO2 Sodium Potassium Chloride Carbon Dioxide Anion Gap BUN Creatinine Estim Creat Clear Calc eGFR BUN/Creatinine Ratio Glucose Calculated Osmolality Lactic Acid 2.3 H Calcium Corrected Calcium Phosphorus Magnesium Total Bilirubin AST ALT Alkaline Phosphatase C-Reactive Prot, Quant Total Protein Albumin Globulin Albumin/Globulin Ratio ABG Interpretation ABG results: 03/09/25 03/09/25 03/10/25 07:50 18:22 09:05 ABG pH 7.45 ABG pCO2 39 ABG pO2 289 H ABG HCO3 27 H ABG O2 Saturation 101 H ABG Base Excess 2 VBG pH 7.39 7.49 VBG pCO2 49 37 D VBG pO2 70 H 68 H VBG Base Excess 4 H 5 H 03/11/25 03/12/25 10:09 09:44 ABG pH 7.40 ABG pCO2 44 ABG pO2 80 L D ABG HCO3 27 H ABG O2 Saturation 95 ABG Base Excess 2 VBG pH 7.45 VBG pCO2 40 VBG pO2 39 D VBG Base Excess 4 H Quality Measures Quality Measures none Advance care planning discussed with:: patient Assessment & Plan Assessment Current Active Medications: Generic Name Dose Route Start Last Admin Trade Name Freq PRN Reason Stop Dose Admin Acetaminophen 650 mg 03/09/25 14:41 03/11/25 17:08 Acetaminophen 325 Mg Tablet PO 04/08/25 14:40 650 mg Q6H PRN Administration Mild Pain(1-3) or Fever >100.3 Hydrocodone Bitart/Acetaminophen 1 tab 03/09/25 14:41 Hydrocodone/Apap 5/325 Tablet PO 03/14/25 14:40 Q4HR PRN PAIN SCALE 4-10(Mod-Sev Atorvastatin Calcium 40 mg 03/09/25 21:00 03/11/25 20:43 Atorvastatin Calcium 20 Mg Tablet PO 04/08/25 20:59 40 mg HS SABRINA Administration Budesonide 1 mg 03/11/25 10:00 03/12/25 06:09 Budesonide Rt 0.5 Mg/2 Ml Nebu INH 04/10/25 09:59 1 mg BIDRT SABRINA Administration Clopidogrel Bisulfate 75 mg 03/10/25 09:00 03/12/25 09:59 Clopidogrel Bisulfate 75 Mg Tablet PO 04/09/25 08:59 75 mg QDAY SABRINA Administration Dextrose 25 ml 03/12/25 08:16 Dextrose 50%-Water Inj 50 Ml Syringe IV 04/11/25 08:15 Q15MIN PRN BG 50-70 responsive npo pt Dextrose 50 ml 03/12/25 08:16 Dextrose 50%-Water Inj 50 Ml Syringe IV 04/11/25 08:15 Q15MIN PRN BG <50 OR BG <70 & pt unresponsive Diltiazem HCl 240 mg 03/10/25 09:00 03/12/25 09:58 Diltiazem Cd 120 Mg Capcr PO 04/09/25 08:59 240 mg QDAY SABRINA Administration Gabapentin 100 mg 03/11/25 12:15 03/12/25 11:28 Gabapentin 100 Mg Capsule PO 04/10/25 12:14 Not Given BID SABRINA Glucagon 1 mg 03/12/25 08:16 Glucagon Inj 1 Mg Vial IM Q15MIN PRN BG <70, and no IV access Heparin Sodium (Porcine) 5,000 unit 03/09/25 21:00 03/12/25 09:59 Heparin Sod Inj 5000 Unit/Ml Vial SC 03/23/25 20:59 5,000 unit BID SABRINA Administration Hydroxyzine HCl 25 mg 03/09/25 21:00 03/11/25 20:43 Hydroxyzine Hcl 25 Mg Tablet PO 04/08/25 20:59 25 mg HS SABRINA Administration Insulin Human Lispro 0 unit 03/12/25 11:30 03/12/25 11:33 Insulin Lispro (Admelog) 1 Unit/0.01 Ml Unit SC 04/11/25 11:29 Not Given AC SABRINA Protocol Ipratropium [place] 0.5 mg 03/10/25 15:00 03/12/25 10:33 Ipratropium Rt 0.5 Mg/ 2.5 Ml Nebu INH 04/09/25 14:59 0.5 mg Q4HRRT SABRINA Administration Levalbuterol HCl 1.25 mg 03/10/25 15:00 03/12/25 10:33 Levalbuterol Rt 1.25 Mg/0.5 Ml Nebu INH 04/09/25 14:59 1.25 mg Q4HRRT SABRINA Administration Levalbuterol HCl 0.63 mg 03/11/25 22:53 03/12/25 00:43 Levalbuterol Rt 0.63 Mg/3 Ml Nebu INH 04/10/25 22:52 0.63 mg Q8HR PRN Administration WHEEZING Melatonin 3 mg 03/09/25 23:18 03/11/25 00:59 Melatonin 3 Mg Tablet PO 04/09/25 20:59 3 mg HS PRN Administration insomnia Methylprednisolone Sodium Succinate 60 mg 03/11/25 21:00 03/12/25 09:59 Methylprednisolone Sod Succ 40 Mg Vial IVP 03/18/25 20:59 60 mg BID SABRINA Administration Ondansetron HCl 4 mg 03/09/25 14:41 Ondansetron Inj 2 Mg/Ml Inj 2 Ml IVP 04/08/25 14:40 Q6H PRN NAUSEA OR VOMITING Protocol Pantoprazole Sodium 40 mg 03/10/25 09:00 03/12/25 09:59 Pantoprazole 40 Mg Tablet PO 04/09/25 08:59 40 mg QDAY SABRINA Administration Sennosides 1 tab 03/10/25 09:00 03/12/25 09:59 Senna Tablet PO 04/09/25 08:59 1 tab QDAY SABRINA Administration Protocol Sodium Chloride 3 ml 03/11/25 16:26 Sodium Chloride Rt Annika 0.9% 3 Ml Nebu INH 04/10/25 16:25 PRN PRN SOLN Plan Plan Patient is an 84-year-old female with a past medical history CHF HFpEF 55 to 60% (11/23/2024), systolic dysfunction, moderate PAH 55, moderate to severe with V-max 3.8, ESRD status post peritoneal dialysis dialysis, chronic asthma since early 20s, 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 #Acute hypoxic respiratory failure secondary to asthma exacerbation #Acute on Chronic Asthma exacerbation #Granulomatosis w/ Polyangiitis-formerly known as Antonia's Patient presented to the ED via EMS with a two day history of worsening shortness of breath. Patient's family noticed the patient wheezing while receiving dialysis and called EMS. While in the emergency room department, several episode of spO2 80s on nasal cannula-->transitioned to Bipap. While in ER, increased work of breathing, RR high 30s/40s with abdominal breathing noted, increase in FiO 10-->30. Repeat ABG pH 7.45, pO2 289, HC03 27-->decrease in FIO2 to 20. Daughter at bedside noted an URI several days ago and is concern this may have triggered current exacerbation. 03/11/2025 patient evaluated bedside, in acute respiratory distress, noted to have wheezing evidence of accessory muscles, trouble breathing, respiratory rate in the high 30s, saturating well on 20 L high flow nasal, oxygen, but increased work of breathing. Blood gas was ordered which showed pH and PO2 within normal range, given methylprednisone 125 mg x 1, ordered hour-long nebulization with albuterol, added budesonide nebulization. Consulted ICU/image assembler Dr. Arellano, who recommended that given patient's diagnosis of Antonia's granulomatosis in the past, and history of longstanding asthma which was relatively well-controlled until recently, noted ANCA and MPO/[place]-3 antibodies. Agreed with IV steroids for now, but patient might require increasing doses if acute flare of Antonia's granulomatosis. Also considering possibility of cardiac asthma given, severe aortic stenosis leading to worsening of asthma. Patient might benefit from early aortic valve replacement as soon as clinical condition is stable. Also consider trial of hemodialysis for adequate ultrafiltration as peritoneal dialysis unable to remove adequate fluid. 03/12/2025 patient noted to have respiratory rate of 20 currently on high flow oxygen 20 L satting 96 with FiO2 21; ABG pO2 80 HCO3 27 pH 7.40 pCO2 44. Blood culture negative after 48 hours, MRSA screen negative, and Peritoneal Dialysis Culture pending. Plan: - Continue HFNC, currently at 20 L/min, attempt to wean down oxygen. - Methylprednisone 60 mg IV BID. -Levalbuterol 1.25 mg INH Q4HRRT, Ipratropium 0.5 INH Q4HRRT, Budenoside BIDRT -Azithromycin Course Completed (03/09/2025-03/12/2025) & Ceftriaxone 03/10/2025-03/11/2025 -Consider ANCA levels/ESR to determine possible exacerbation as relapses with Antonia are common, specially with reported coffee ground emesis #Concern for Hyperthyroidism Noted suppressed TSH and elevated T4 levels, limited utility of thyroid function test during acute illness and hospitalization. the patient will eventually require repeat thyroid function test once discharged to confirm thyroid disorders. Also patient has longstanding history of MAT likely secondary to pulmonary disorder, less likely influenced by thyroid. -Thyroid US: bilateral vascular thyroid nodules, consider fine needle aspiration -TSI/TSH-R Antibodies and TPO antibodies pending - Repeat thyroid function testing in 3 to 4 weeks after discharge, and follow-up with cornice maker #Acute on Chronic Congestive Heart Failure #CHF HFpEF 60-65% (03/12/2025) #Mild Pulmonary Vascular Congestion #Moderate to Severe Aortic Stenosis, AV vmax 3.8 m #Severe Mitral Regurgitation #Moderate PAH, 55 mmHg Patient likely acute on chronic congestive heart failure this, may only be mild exacerbation as pulmonary vascular congestion was less prominent as compared to other episode. Current BNP of 345 vs previous CHF exacerbation of 1691.Acute on chronic CHF exacerbation likely triggered by asthma exacerbation. Diagnostics: Echo (03/12/2025): Normal LV size and function. EF 60-65%. Diastolic dysfunction present but cannot be graded due to arrhythymia.Normal RV size and function. Estimated RVSP moderately elevated RVSP 50-55 mm hg.Moderate to Severe . AV vmax 3.8 m/s, Mean PG 38 mm hg. LATRICE 0.5 sq cm. -BNP 345 -Chest x-ray (03/10/2025): Mild chronic heart failure pattern, prominent vascular congestion-overall mild chornic heart failure Plan: -Lasix 40 mg IV X 1 (03/10/2025) -Strict Ins and Outs -Fluid Restrictions 1800 -Oxygen support -Cardiology consulted to Dr. Campa is placed, pending recommendations #MAT #Atrial Fibrillation, less likely #EKG Abnormalities Patient has a past medical history of previous reported Atrial Fibrillation, per daughter, was told it was less likely atrial fibrillation, decision was made for no Eliquis and only Plavix on board for history of CVA. This EKG read A.fib w/ rvr but not all leads irregular and some noted with possible p waves. r waves present, no deep q waves noted. V1/V2 possible t wave abnormalities. Plan -Diltiazem 240 mg PO scheduled -AVOID BETA BLOCKERS GIVEN ASTHMA EXACERBATION -Cardiology consult completed, possible uptration to Diltiazem 360 mg PO QD if rate is not well controlled #Mild Troponemia #NSTEMI, type II likely demand ischemia Mild elevation in Troponin likely in the setting of demand ischemia from asthma exacerbation. Denied chest pain, palpitations, or chest pressure. No st elevation noted. Plan -Repeat Troponin peaked at 0.143. #ESRD on peritoneal dialysis #ESRD secondary to Granulomatosis Per patient history, follows Dr. Amezcua and Dr. Coley. Patient develoepd ESRD several years ago likely secondary to Granulomatosis. Peritoneal dialysis, daily. Consult nephrology for scheduled daily dialysis. Plan -Strict in and outs. -Peritoneal dialysis -Avoid nephrotoxins, consider renal dosing -Nephrology Consulted, Dr. Amezcua, appreciate recommendations. - Peritoneal fluid culture pending #Single Episode of Hematemsis #Normocytic Normochromic Anemia Pertinent lab values 03/12/25: MCV 87 Hgb 10.1 RBC 3.38 Hct 29.5 . Given past medical history of GERD, consider gastric ulcers-given reported coffee ground emesis vs Granulomatosis flare vs lower GI bleed. Plan: -Monitor hgb >7 goal -Consider occult blood AM, if worsening drop -Consider gastroenterology consult with Dr. Abraham, if repeat episodes of coffee ground emesis #History of CVA Past medical history of CVA Plan -plavix given coffee ground emesis. #GERD #Gastritis (?) Per the patient's daughter, the patient recently experienced coffee ground emesis w/ history of GERD. Plan: Start Pantoprazole 40 mg PO QD-->Transition to Pantoprazole 40 mg IV BID (AM) #history of Fracture Neck of Right Femur Patient underwent surgical repair of closed right hip neck fracture on 12/01/[address] Lee Plan: Monitor for possible rehabilitation DVT prophylaxis: No DVT prophylaxis in setting of suspected GI bleed and anemia GI prophylaxis: IV Protonix qday Diet: Clear liquid diet Lines: Peripheral IV Code status: Full code Case discussed with attending physician Dr. Martinez and resident Dr. Angela Sena MS-4 - The patient's plan was discussed with attending Dr. Juan Miller MD PGY2 Internal Medicine Attending Provider Attestation/Addendum 84-year-old female with multiple comorbidities including heart failure with preserved EF with EF 55-60%, severe aortic stenosis with V-max 3.8, pulmonary hypertension, granulomatosis with polyangiitis with subsequent end-stage renal disease on peritoneal dialysis history of ischemic CVA with right-sided hemiparesis, hypertension, hyperlipidemia presented to the ER with shortness of breath found to have acute hypoxic respiratory failure multifactorial including asthma exacerbation and fluid overload state. Initially, patient did require BiPAP and advised to continue IV steroids, IV antibiotic therapy and plan for peritoneal dialysis. Furthermore, patient also has moderate to severe aortic stenosis with pulmonary arterial hypertension and plan to consult cardiology. Overnight, patient continues to be on high flow nasal cannula with flow of 20 L and FiO2 50%. In addition, plan to continue IV steroids, IV antibiotic and peritoneal dialysis. Appreciate cardiology, pulmonary and nephrology input. I reviewed above note and agree with findings and plans. I have also personally examined the patient with medicine team and went over assessment and plan with medical team including internet marketing analyst and resident physician.
[2025-03-12 14:02] LABS: Lactic Acid, 3 HR 2.1 mMol/L (0.4-2.0)
--- NOTE | 2025-03-12 14:08 | PD.RESPRO ---
Documentation for date of: 03/12/25 Subjective Subjective Interval history: Overnight events: No acute events overnight. Patient was seen and examined at bedside. AM vitals and labs reviewed. BUN 6.9, creatinine 7.7, and GFR 5. Ins/outs 917/0. Patient received peritoneal dialysis Wednesday evening to Wednesday and Wednesday to Wednesday. The patient missed a day of dialysis from Wednesday evening to Wednesday due to lack of dialysis nurse staffed over that time. During today's visit the patient continued to have increased work of breathing and had significant difficulty with conversation. Patient is on high flow nasal cannula 20 L/min and 21% oxygen. Patient stated that she had no issues with peritoneal dialysis overnight. Due to worsening renal function lab values, the patient was asked if she would be all right with hemodialysis if medically necessary. The patient stated that she would like to speak with her daughter I did not give a definitive answer in response to the question. Later on the patient adamantly repeated that she would like to have a meeting between her, her daughter, and the doctor . Notified the medical student on the medicine team about the patient's request. Patient denied any pain at this time and had no other concerns. Review of systems otherwise negative except for what is mentioned above. Exam Vital Signs Temp Pulse Resp BP Pulse Ox O2 Del Method O2 Flow Rate 98.0 F 114 H 20 117/84 96 High Flow Nasal Cannula 20 03/12/25 13:07 03/12/25 13:07 03/12/25 13:07 03/12/25 13:07 03/12/25 12:00 03/12/25 12:00 03/12/25 12:00 FiO2 66 03/12/25 12:00 Narrative Exam Physical Exam: General: Alert, acute distress. Skin: Warm, dry, intact. Head: Normocephalic, atraumatic. Eye: Normal conjunctiva, PERRL. Cardiovascular: Heart sounds distant and difficult to hear. Respiratory: Respirations labored on HFNC with use of accessory muscles of breathing when talking. Diffuse wheezing bilaterally. Gastrointestinal: Soft, nontender, distended. No guarding or rebound tenderness. Extremities: No edema, no cyanosis, no clubbing. 2+ radial pulse bilaterally, 2+ pedal pulse bilaterally. Neuro: No focal deficits observed. Moving all extremities. No overt cerebellar signs/incoordination. Objective Labs 03/17/25 05:16 03/17/25 05:16 Labs: Laboratory Results - last 24 hr 03/11/25 03/12/25 03/12/25 17:59 04:32 09:44 WBC 12.9 H RBC 3.38 L Hgb 10.1 L Hct 29.5 L MCV 87 MCH 29.9 MCHC 34.2 RDW Std Deviation 49.7 H Plt Count 298 D Neut % (Auto) 89 H Lymph % (Auto) 6 L [place] % (Auto) 4 Eos % (Auto) 0 Baso % (Auto) 0 Neut # (Auto) 11.5 H Lymph # (Auto) 0.8 L [place] # (Auto) 0.5 Eos # (Auto) 0.0 Baso # (Auto) 0.0 Immature Gran # (Auto) 0.15 H Absolute Nucleated RBC 0.00 Immature Gran % 1 H Nucleated RBC % 0 Puncture Site Left Radial ABG pH 7.40 ABG pCO2 44 ABG pO2 80 L D ABG HCO3 27 H ABG O2 Saturation 95 ABG Base Excess 2 FiO2 26 Sodium 131 L Potassium 3.7 Chloride 90 L Carbon Dioxide 23.4 Anion Gap 18 H BUN 69 H Creatinine 7.7 H* Estim Creat Clear Calc 4.1 L eGFR 5 L* BUN/Creatinine Ratio 9 L Glucose 218 H Calculated Osmolality 289 Lactic Acid Calcium 8.4 Corrected Calcium 8.5 Phosphorus 4.1 Magnesium 3.2 H Total Bilirubin 0.2 L AST 43 H ALT 82 H Alkaline Phosphatase 85 C-Reactive Prot, Quant < 0.5 Total Protein 6.9 Albumin 3.9 Globulin 3.0 Albumin/Globulin Ratio 1.3 03/12/25 03/12/25 09:51 13:34 WBC RBC Hgb Hct MCV MCH MCHC RDW Std Deviation Plt Count Neut % (Auto) Lymph % (Auto) [place] % (Auto) Eos % (Auto) Baso % (Auto) Neut # (Auto) Lymph # (Auto) [place] # (Auto) Eos # (Auto) Baso # (Auto) Immature Gran # (Auto) Absolute Nucleated RBC Immature Gran % Nucleated RBC % Puncture Site ABG pH ABG pCO2 ABG pO2 ABG HCO3 ABG O2 Saturation ABG Base Excess FiO2 Sodium Potassium Chloride Carbon Dioxide Anion Gap BUN Creatinine Estim Creat Clear Calc eGFR BUN/Creatinine Ratio Glucose Calculated Osmolality Lactic Acid 2.3 H 2.1 H Calcium Corrected Calcium Phosphorus Magnesium Total Bilirubin AST ALT Alkaline Phosphatase C-Reactive Prot, Quant Total Protein Albumin Globulin Albumin/Globulin Ratio ABG Interpretation ABG results: 03/09/25 03/09/25 03/10/25 07:50 18:22 09:05 ABG pH 7.45 ABG pCO2 39 ABG pO2 289 H ABG HCO3 27 H ABG O2 Saturation 101 H ABG Base Excess 2 VBG pH 7.39 7.49 VBG pCO2 49 37 D VBG pO2 70 H 68 H VBG Base Excess 4 H 5 H 03/11/25 03/12/25 10:09 09:44 ABG pH 7.40 ABG pCO2 44 ABG pO2 80 L D ABG HCO3 27 H ABG O2 Saturation 95 ABG Base Excess 2 VBG pH 7.45 VBG pCO2 40 VBG pO2 39 D VBG Base Excess 4 H Quality Measures Quality Measures none Advance care planning discussed with:: patient Assessment & Plan Assessment Current Active Medications: Generic Name Dose Route Start Last Admin Trade Name Freq PRN Reason Stop Dose Admin Acetaminophen 650 mg 03/09/25 14:41 03/11/25 17:08 Acetaminophen 325 Mg Tablet PO 04/08/25 14:40 650 mg Q6H PRN Administration Mild Pain(1-3) or Fever >100.3 Hydrocodone Bitart/Acetaminophen 1 tab 03/09/25 14:41 Hydrocodone/Apap 5/325 Tablet PO 03/14/25 14:40 Q4HR PRN PAIN SCALE 4-10(Mod-Sev Atorvastatin Calcium 40 mg 03/09/25 21:00 03/11/25 20:43 Atorvastatin Calcium 20 Mg Tablet PO 04/08/25 20:59 40 mg HS SABRINA Administration Budesonide 1 mg 03/11/25 10:00 03/12/25 06:09 Budesonide Rt 0.5 Mg/2 Ml Nebu INH 04/10/25 09:59 1 mg BIDRT SABRINA Administration Clopidogrel Bisulfate 75 mg 03/10/25 09:00 03/12/25 09:59 Clopidogrel Bisulfate 75 Mg Tablet PO 04/09/25 08:59 75 mg QDAY SABRINA Administration Dextrose 25 ml 03/12/25 08:16 Dextrose 50%-Water Inj 50 Ml Syringe IV 04/11/25 08:15 Q15MIN PRN BG 50-70 responsive npo pt Dextrose 50 ml 03/12/25 08:16 Dextrose 50%-Water Inj 50 Ml Syringe IV 04/11/25 08:15 Q15MIN PRN BG <50 OR BG <70 & pt unresponsive Diltiazem HCl 240 mg 03/10/25 09:00 03/12/25 09:58 Diltiazem Cd 120 Mg Capcr PO 04/09/25 08:59 240 mg QDAY SABRINA Administration Gabapentin 100 mg 03/11/25 12:15 03/12/25 11:28 Gabapentin 100 Mg Capsule PO 04/10/25 12:14 Not Given BID SABRINA Glucagon 1 mg 03/12/25 08:16 Glucagon Inj 1 Mg Vial IM Q15MIN PRN BG <70, and no IV access Heparin Sodium (Porcine) 5,000 unit 03/09/25 21:00 03/12/25 09:59 Heparin Sod Inj 5000 Unit/Ml Vial SC 03/23/25 20:59 5,000 unit BID SABRINA Administration Hydroxyzine HCl 25 mg 03/09/25 21:00 03/11/25 20:43 Hydroxyzine Hcl 25 Mg Tablet PO 04/08/25 20:59 25 mg HS SABRINA Administration Insulin Human Lispro 0 unit 03/12/25 11:30 03/12/25 11:33 Insulin Lispro (Admelog) 1 Unit/0.01 Ml Unit SC 04/11/25 11:29 Not Given AC [facility] Protocol Ipratropium [place] 0.5 mg 03/10/25 15:00 03/12/25 10:33 Ipratropium Rt 0.5 Mg/ 2.5 Ml Nebu INH 04/09/25 14:59 0.5 mg Q4HRRT SABRINA Administration Levalbuterol HCl 1.25 mg 03/10/25 15:00 03/12/25 10:33 Levalbuterol Rt 1.25 Mg/0.5 Ml Nebu INH 04/09/25 14:59 1.25 mg Q4HRRT SABRINA Administration Levalbuterol HCl 0.63 mg 03/11/25 22:53 03/12/25 00:43 Levalbuterol Rt 0.63 Mg/3 Ml Nebu INH 04/10/25 22:52 0.63 mg Q8HR PRN Administration WHEEZING Melatonin 3 mg 03/09/25 23:18 03/11/25 00:59 Melatonin 3 Mg Tablet PO 04/09/25 20:59 3 mg HS PRN Administration insomnia Methylprednisolone Sodium Succinate 60 mg 03/11/25 21:00 03/12/25 09:59 Methylprednisolone Sod Succ 40 Mg Vial IVP 03/18/25 20:59 60 mg BID SABRINA Administration Ondansetron HCl 4 mg 03/09/25 14:41 Ondansetron Inj 2 Mg/Ml Inj 2 Ml IVP 04/08/25 14:40 Q6H PRN NAUSEA OR VOMITING Protocol Pantoprazole Sodium 40 mg 03/10/25 09:00 03/12/25 09:59 Pantoprazole 40 Mg Tablet PO 04/09/25 08:59 40 mg QDAY SABRINA Administration Sennosides 1 tab 03/10/25 09:00 03/12/25 09:59 Senna Tablet PO 04/09/25 08:59 1 tab QDAY SABRINA Administration Protocol Sodium Chloride 3 ml 03/11/25 16:26 Sodium Chloride Rt Annika 0.9% 3 Ml Nebu INH 04/10/25 16:25 PRN PRN SOLN Plan Mrs. 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 Nephrology was consulted for management of her peritoneal dialysis. #ESRD on Peritoneal Dialysis #ESRD 2/2 Donna's Granulomatosis - Continue nightly peritoneal dialysis - Patient's daughter discussed peritoneal dialysis timing with Dr. Amezcua. - Notified primary team about patient's desire to discuss her condition with her daughter and the doctor in the same room. - Will hold off on hemodialysis for now given that the patient is not fluid overloaded - Continue to monitor renal function. - Avoid IV hydration given past history of fluid overload and CHF. - Avoid nephrotoxic drugs and renally adjust medications. - Nephrology will continue to follow. Patient was discussed with the Nephrology attending, Dr. Amezcua. Thank you for allowing us to participate in the care of this patient. Rogelio Asher, PGY-1 Attending Provider Attestation/Addendum Agree with assessment and plan and finding of resident. Temo Amezcua MD
--- NOTE | 2025-03-12 15:00 | PD.RESPRO ---
Documentation for date of: 03/12/25 Subjective Subjective Interval history: Patient seen and examined at bedside. Patient continues to be short of breath, using accessory muscles, and primary team did consult pulmonary. Now on high flpow oxygen at 20 L O2 via [place]. Pulmonary consultation was done with Dr. 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 On high-dose steroids along with nebulizations. Also reviewed her xray and feel there is fluid overload also and recommended to change to HD as PD does not work well after few years. Intelligence Analyst at [place] failed to find extrapulmonary causes of dyspnea and was discovered to have . GPA was in remission for many years after initial diagnosis in [place] treated with prednisone and methotrexate 25 years ago , renal disease manifested later [facility] biopsy was inconclusive and repeat biopsy at [facility] showed findings consistent with GPA, started on rituximab and steroid used but progressed to ESRD over time around 2019 Still continues to be on peritoneal dialysis and was recommended hemodialysis previously by me also during last admission but daughter, sons whoa re the caregivers were not ready for it. We also discussed during the present admission. Primary team to speak to the family, and we will also be speaking to the family members. Patient was supposed to have a left and right heart cardiac catheterization given her history of severe but cannot be performed at the present moment because of her respiratory status. Will continue to monitor closely and fluid management as per nephrology as patient on dialysis. Abnormal thyroid function tests and primary team ordered further lab tests and also ultrasound of the thyroid revealed bilateral vascular solid thyroid nodules, primary team may consider ultrasound-guided fine-needle aspiration of both nodules. Exam Vital Signs Temp Pulse Resp BP Pulse Ox O2 Del Method O2 Flow Rate 98.0 F 98 18 117/84 99 High Flow Nasal Cannula 20 03/12/25 13:07 03/12/25 14:32 03/12/25 14:32 03/12/25 13:07 03/12/25 14:32 03/12/25 12:00 03/12/25 14:32 FiO2 21 03/12/25 14:32 Narrative Exam General: Alert and oriented x3. In no acute distress. Eyes: Pupils are equal and reactive to light bilaterally. HEENT: Atraumatic, normocephalic. No JVD noted. Mucosa moist. Cardiovascular: Normal S1 and soft S2,. Tachycardic, 3/6 ejection systolic murmur heard at aortic area, 3/6 holosystolic murmur heard on the mitral area and parasternal area, trace peripheral pitting edema noted. Respiratory: Mild respiratory distress on oxygen via nasal cannula, use of accessory muscles appreciated, bilateral air entry present, minimal wheezing noted. No significant crackles. Abdomen: Soft, nontender, nondistended. Skin: No rash. Warm to touch. Musculoskeletal: No gross injuries. Able to move all 4 extremities. Neuro: Alert and oriented x3. No focal neuro deficits. Psych: mildly depressed. Objective Labs 03/12/25 04:32 03/12/25 04:32 Labs: Laboratory Results - last 24 hr 03/11/25 03/12/25 03/12/25 17:59 04:32 09:44 WBC 12.9 H RBC 3.38 L Hgb 10.1 L Hct 29.5 L MCV 87 MCH 29.9 MCHC 34.2 RDW Std Deviation 49.7 H Plt Count 298 D Neut % (Auto) 89 H Lymph % (Auto) 6 L [place] % (Auto) 4 Eos % (Auto) 0 Baso % (Auto) 0 Neut # (Auto) 11.5 H Lymph # (Auto) 0.8 L [place] # (Auto) 0.5 Eos # (Auto) 0.0 Baso # (Auto) 0.0 Immature Gran # (Auto) 0.15 H Absolute Nucleated RBC 0.00 Immature Gran % 1 H Nucleated RBC % 0 Puncture Site Left Radial ABG pH 7.40 ABG pCO2 44 ABG pO2 80 L D ABG HCO3 27 H ABG O2 Saturation 95 ABG Base Excess 2 FiO2 26 Sodium 131 L Potassium 3.7 Chloride 90 L Carbon Dioxide 23.4 Anion Gap 18 H BUN 69 H Creatinine 7.7 H* Estim Creat Clear Calc 4.1 L eGFR 5 L* BUN/Creatinine Ratio 9 L Glucose 218 H Calculated Osmolality 289 Lactic Acid Calcium 8.4 Corrected Calcium 8.5 Phosphorus 4.1 Magnesium 3.2 H Total Bilirubin 0.2 L AST 43 H ALT 82 H Alkaline Phosphatase 85 C-Reactive Prot, Quant < 0.5 Total Protein 6.9 Albumin 3.9 Globulin 3.0 Albumin/Globulin Ratio 1.3 03/12/25 03/12/25 09:51 13:34 WBC RBC Hgb Hct MCV MCH MCHC RDW Std Deviation Plt Count Neut % (Auto) Lymph % (Auto) [place] % (Auto) Eos % (Auto) Baso % (Auto) Neut # (Auto) Lymph # (Auto) [place] # (Auto) Eos # (Auto) Baso # (Auto) Immature Gran # (Auto) Absolute Nucleated RBC Immature Gran % Nucleated RBC % Puncture Site ABG pH ABG pCO2 ABG pO2 ABG HCO3 ABG O2 Saturation ABG Base Excess FiO2 Sodium Potassium Chloride Carbon Dioxide Anion Gap BUN Creatinine Estim Creat Clear Calc eGFR BUN/Creatinine Ratio Glucose Calculated Osmolality Lactic Acid 2.3 H 2.1 H Calcium Corrected Calcium Phosphorus Magnesium Total Bilirubin AST ALT Alkaline Phosphatase C-Reactive Prot, Quant Total Protein Albumin Globulin Albumin/Globulin Ratio ABG Interpretation ABG results: 03/09/25 03/09/25 03/10/25 07:50 18:22 09:05 ABG pH 7.45 ABG pCO2 39 ABG pO2 289 H ABG HCO3 27 H ABG O2 Saturation 101 H ABG Base Excess 2 VBG pH 7.39 7.49 VBG pCO2 49 37 D VBG pO2 70 H 68 H VBG Base Excess 4 H 5 H 03/11/25 03/12/25 10:09 09:44 ABG pH 7.40 ABG pCO2 44 ABG pO2 80 L D ABG HCO3 27 H ABG O2 Saturation 95 ABG Base Excess 2 VBG pH 7.45 VBG pCO2 40 VBG pO2 39 D VBG Base Excess 4 H Quality Measures Quality Measures none Advance care planning discussed with:: patient Assessment & Plan Assessment Current Active Medications: Generic Name Dose Route Start Last Admin Trade Name Freq PRN Reason Stop Dose Admin Acetaminophen 650 mg 03/09/25 14:41 03/11/25 17:08 Acetaminophen 325 Mg Tablet PO 04/08/25 14:40 650 mg Q6H PRN Administration Mild Pain(1-3) or Fever >100.3 Hydrocodone Bitart/Acetaminophen 1 tab 03/09/25 14:41 Hydrocodone/Apap 5/325 Tablet PO 03/14/25 14:40 Q4HR PRN PAIN SCALE 4-10(Mod-Sev Atorvastatin Calcium 40 mg 03/09/25 21:00 03/11/25 20:43 Atorvastatin Calcium 20 Mg Tablet PO 04/08/25 20:59 40 mg HS SABRINA Administration Budesonide 1 mg 03/11/25 10:00 03/12/25 06:09 Budesonide Rt 0.5 Mg/2 Ml Nebu INH 04/10/25 09:59 1 mg BIDRT SARBINA Administration Clopidogrel Bisulfate 75 mg 03/10/25 09:00 03/12/25 09:59 Clopidogrel Bisulfate 75 Mg Tablet PO 04/09/25 08:59 75 mg QDAY SABRINA Administration Dextrose 25 ml 03/12/25 08:16 Dextrose 50%-Water Inj 50 Ml Syringe IV 04/11/25 08:15 Q15MIN PRN BG 50-70 responsive npo pt Dextrose 50 ml 03/12/25 08:16 Dextrose 50%-Water Inj 50 Ml Syringe IV 04/11/25 08:15 Q15MIN PRN BG <50 OR BG <70 & pt unresponsive Diltiazem HCl 240 mg 03/10/25 09:00 03/12/25 09:58 Diltiazem Cd 120 Mg Capcr PO 04/09/25 08:59 240 mg QDAY SABRINA Administration Gabapentin 100 mg 03/11/25 12:15 03/12/25 11:28 Gabapentin 100 Mg Capsule PO 04/10/25 12:14 Not Given BID SABRINA Glucagon 1 mg 03/12/25 08:16 Glucagon Inj 1 Mg Vial IM Q15MIN PRN BG <70, and no IV access Heparin Sodium (Porcine) 5,000 unit 03/09/25 21:00 03/12/25 09:59 Heparin Sod Inj 5000 Unit/Ml Vial SC 03/23/25 20:59 5,000 unit BID SABRINA Administration Hydroxyzine HCl 25 mg 03/09/25 21:00 03/11/25 20:43 Hydroxyzine Hcl 25 Mg Tablet PO 04/08/25 20:59 25 mg HS SABRINA Administration Insulin Human Lispro 0 unit 03/12/25 11:30 03/12/25 11:33 Insulin Lispro (Admelog) 1 Unit/0.01 Ml Unit SC 04/11/25 11:29 Not Given AC [facility] Protocol Ipratropium [place] 0.5 mg 03/10/25 15:00 03/12/25 14:31 Ipratropium Rt 0.5 Mg/ 2.5 Ml Nebu INH 04/09/25 14:59 0.5 mg Q4HRRT SABRINA Administration Levalbuterol HCl 1.25 mg 03/10/25 15:00 03/12/25 14:31 Levalbuterol Rt 1.25 Mg/0.5 Ml Nebu INH 04/09/25 14:59 1.25 mg Q4HRRT SABRINA Administration Levalbuterol HCl 0.63 mg 03/11/25 22:53 03/12/25 00:43 Levalbuterol Rt 0.63 Mg/3 Ml Nebu INH 04/10/25 22:52 0.63 mg Q8HR PRN Administration WHEEZING Melatonin 3 mg 03/09/25 23:18 03/11/25 00:59 Melatonin 3 Mg Tablet PO 04/09/25 20:59 3 mg HS PRN Administration insomnia Methylprednisolone Sodium Succinate 60 mg 03/11/25 21:00 03/12/25 09:59 Methylprednisolone Sod Succ 40 Mg Vial IVP 03/18/25 20:59 60 mg BID SABRINA Administration Ondansetron HCl 4 mg 03/09/25 14:41 Ondansetron Inj 2 Mg/Ml Inj 2 Ml IVP 04/08/25 14:40 Q6H PRN NAUSEA OR VOMITING Protocol Pantoprazole Sodium 40 mg 03/10/25 09:00 03/12/25 09:59 Pantoprazole 40 Mg Tablet PO 04/09/25 08:59 40 mg QDAY SABRINA Administration Sennosides 1 tab 03/10/25 09:00 03/12/25 09:59 Senna Tablet PO 04/09/25 08:59 1 tab QDAY SABRINA Administration Protocol Sodium Chloride 3 ml 03/11/25 16:26 Sodium Chloride Rt Annika 0.9% 3 Ml Nebu INH 04/10/25 16:25 PRN PRN SOLN Plan A 84-year-old female with a past medical history of severe aortic stenosis with a valve area of 0.5 cm?, moderate MR and TR, moderate PAH, preserved EF with diastolic dysfunction, end-stage renal disease on peritoneal dialysis for the last 4 to 5 years, Antonia's granulomatosis diagnosed 25 years ago, chronic severe asthma since her early 20s, history of multifocal atrial tachycardia, 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 1. Acute hypoxic respiratory failure mostly secondary to asthma exacerbation 2. Acute asthma exacerbation 3. Severe aortic stenosis with a valve area less than 0.5 cm? 4. End-stage renal disease on peritoneal dialysis for past 4 to 5 years mostly secondary to Antonia's granulomatosis 5. Abnormal thyroid function tests 6. Multifocal atrial tachycardia 7. Valvular heart disease with severe aortic stenosis, moderate MR and TR 8. Moderate pulmonary artery pretension with an RVSP of 55 mmHg 9. Chronic diastolic congestive heart failure 10. 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 Patient started on high-dose steroids with Solu-Medrol 60 mg every every 8 hours decreased to every 12 hours, along with nebulizations and inhalers. Still continues to be on oxygen and now use of any accessory muscles appreciated. Combination of upper respiratory tract symptoms along with recent emotional stress. Also on IV antibiotics. Patient has been tachycardic On arrival and EKG reviewed. EKG shows irregularly irregular rhythm but most of the time is 100 to 130 bpm which is typical of multifocal atrial tachycardia. Has irregularly irregular rhythm with varying PP and MO intervals. 3 distinct P wave morphologies are also seen in the lead II. Also patient has underlying lung disease which could contribute's significantly for the multifocal atrial tachycardia Continue rate control with diltiazem 240 mg once daily as no beta-pratik can be given because of the as above. Will uptitrate the diltiazem to 360 mg once daily and if rate is not well-controlled. No anticoagulation required. Patient is mildly elevated troponins at 0.34 and 0.145. Troponin elevation mostly secondary to NSTEMI type II in the setting of supply/demand mismatch. Patient denies any Chest pain or chest pressure at the present moment. EKG showed marked without any acute ST-T changes history of ischemia. Patient is scheduled to have left and right heart cardiac catheterization on Wednesday as outpatient but cannot be done because of her acute hypoxic respiratory failure at the present point of time. Continue Plavix for now and high intensity statin. No beta-pratik because of asthma. No heparin drip required. Patient does have severe as noted above with a valve area of less than 0.5 cm?. Patient also has moderate MR and TR with moderate PAH noted on the previous echocardiogram in November 2024. Workup started as outpatient for the severe and as noted previously was scheduled for the left heart cardiac catheterization and right heart cardiac catheterization which will need to be postponed for now given her acute hypoxic respiratory failure. Will continue further workup of the severe as outpatient. 03/12/2025: Patient continues to be short of breath, using accessory muscles, and primary team did consult pulmonary. Now on high flpow oxygen at 20 L O2 via [place]. Pulmonary consultation was done with Dr. 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 On high-dose steroids along with nebulizations. Also reviewed her xray and feel there is fluid overload also and recommended to change to HD as PD does not work well after few years. Intelligence Analyst at [place] failed to find extrapulmonary causes of dyspnea and was discovered to have . GPA was in remission for many years after initial diagnosis in [place] treated with prednisone and methotrexate 25 years ago , renal disease manifested later [facility] biopsy was inconclusive and repeat biopsy at [facility] showed findings consistent with GPA, started on rituximab and steroid used but progressed to ESRD over time around 2019 Still continues to be on peritoneal dialysis and was recommended hemodialysis previously by me also during last admission but daughter, sons whoa re the caregivers were not ready for it. We also discussed during the present admission. Primary team to speak to the family, and we will also be speaking to the family members. Patient was supposed to have a left and right heart cardiac catheterization given her history of severe but cannot be performed at the present moment because of her respiratory status. Will continue to monitor closely and fluid management as per nephrology as patient on dialysis. Abnormal thyroid function tests and primary team ordered further lab tests and also ultrasound of the thyroid revealed bilateral vascular solid thyroid nodules, primary team may consider ultrasound-guided fine-needle aspiration of both nodules. Will continue to monitor closely and fluid management as per nephrology as patient on dialysis. Continue with Diltiazem 240mg daily for rate control. Management of rest of the medical conditions as per primary team and other consultants. Thank you for the consult and allowing me to participate in the care of the patient. Cardiology will continue to follow. The patient's management plan was discussed with my attending physician MD Kevin Murcia MD, PGY3
--- NOTE | 2025-03-12 17:01 | PC.SS ---
Rounding Note: Patient currently on high flow oxygen. Patient is receiving IV antibiotics.
[2025-03-12 17:36] LABS: Peritoneal Fluid WBC 3 /cmm
[2025-03-12 17:52] LABS: Peritoneal Fluid Appearance Clear; Peritoneal Fluid Color Colorless
[2025-03-12 17:53] LABS: Peritoneal Fluid Mononuclear 67 %; Peritoneal Fluid Polynuclear 33 %; RBC,Peritoneal Fluid 5 /cmm
[2025-03-12 18:16] LABS: Albumin, Peritoneal Fluid < 1.0 gm/dL; Amylase,Peritoneal Fluid < 20 IU/L; Glucose,Peritoneal Fluid > 2100 mg/dL; LDH,Peritoneal Fluid < 14 IU/L; Protein Total,Peritoneal Fluid < 2 g/dL
[2025-03-12] MEDS: ATORVASTATIN CALCIUM 20 MG TABLET 40 MG PO (21:20)
[2025-03-13] VITALS (16 sets, daily range): BP systolic 118–161; BP diastolic 76–101; PULSE 90–130; RESP 18–30; TEMP 36.2–36.7; O2SAT 91–99; BMI 27.8
[2025-03-13] MEDS: IPRATROPIUM RT 0.5 MG/ 2.5 ML NEBU INH ×6 (03:16→22:16)
[2025-03-13] MEDS: LEVALBUTEROL RT 1.25 MG/0.5 ML NEBU INH ×6 (03:16→22:16)
[2025-03-13] MEDS: LEVALBUTEROL RT 0.63 MG/3 ML NEBU INH (03:20)
[2025-03-13] MEDS: ACETAMINOPHEN 325 MG TABLET 650 MG PO (03:34)
[2025-03-13] MEDS: BUDESONIDE RT 0.5 MG/2 ML NEBU 1 MG INH ×2 (06:00→19:48)
[2025-03-13 06:35] LABS: Basophils # (Auto) 0.0 Thou/mm3 (0.0-0.2); Basophils % (Auto) 0 % (0-2.5); Eosinophils # (Auto) 0.0 Thou/mm3 (0.0-0.5); Eosinophils % (Auto) 0 % (0-10); Hematocrit 30.7 % (36.0-46.0); Hemoglobin 10.5 g/dL (12.0-16.0); Immature Granulocytes Auto 0.19 Thou/mm3 (0.00-0.00); Lymphocytes # (Auto) 0.5 Thou/mm3 (1.0-4.8); Lymphocytes % (Auto) 4 % (10-50); Mean Corpuscular HGB Conc 34.2 g/dl (31.0-37.0); Mean Corpuscular Hemoglobin 30.3 pg (25.0-35.0); Mean Corpuscular Volume 89 fL (80-100); Monocytes # (Auto) 0.9 Thou/mm3 (0.0-0.8); Monocytes % (Auto) 6 % (0-12); Neutrophils # (Auto) 13.3 Thou/mm3 (1.8-7.7); Neutrophils % (Auto) 89 % (37-80); Nucleated Red Blood Cell # 0.02 Thou/mm3 (0.00-0.00); Nucleated Red Blood Cell % 0 /100 WBC (0); Platelet Count 297 Thou/mm3 (140-440); RDW Standard Deviation 50.4 fL (36.4-46.3); Red Blood Count 3.46 Miln/mm3 (4.00-5.20); White Blood Count 14.9 Thou/mm3 (3.6-11.0)
[2025-03-13 07:16] LABS: Alanine Aminotransferase 91 U/L (10-49); Albumin, Serum 4.2 gm/dL (3.4-4.8); Albumin/Globulin Ratio 1.4 (1.2-2.2); Alkaline Phosphatase 83 U/L (46-116); Anion Gap 17 (7-16); Aspartate Amino Transferase 34 U/L (0-34); BUN/Creatinine Ratio 10 Ratio (12-20); Bilirubin,Total 0.3 mg/dL (0.3-1.2); Blood Urea Nitrogen 73 mg/dL (9-23); Calcium 8.5 mg/dL (8.3-10.6); Calcium (Corrected) 8.5 mg/dL (8.5-10.1); Carbon Dioxide 26.4 mMol/L (20.0-31.0); Chloride 90 mMol/L (98-107); Creatinine (Component) 7.0 mg/dL (0.6-1.3); Estimated Creatinine Clearance 4.5 mL/min (>60); Globulin 2.9 gm/dL (2.3-3.5); Glucose 189 mg/dL (74-106); Magnesium 2.4 mg/dL (1.6-2.6); Osmolality,Calculated 292 (275-295); Phosphorous 3.6 mg/dL (2.4-5.1); Potassium 3.5 mMol/L (3.4-5.1); Sodium 133 mMol/L (136-145); Total Protein 7.1 gm/dL (5.7-8.2); eGFR 5 See Note
[2025-03-13] MEDS: CLOPIDOGREL BISULFATE 75 MG TABLET PO (08:27)
[2025-03-13] MEDS: DILTIAZEM CD 120 MG CAPCR 240 MG PO (08:27)
[2025-03-13] MEDS: PANTOPRAZOLE 40 MG TABLET PO (08:27)
[2025-03-13] MEDS: HEPARIN SOD INJ 5000 UNIT/ML VIAL SC ×2 (08:29→20:37)
--- NOTE | 2025-03-13 08:52 | PC.SS ---
Update: Plan is to wean down patient's oxygen requirements. Patient receiving IV steroids.
--- NOTE | 2025-03-13 09:19 | PD.RESPRO ---
Documentation for date of: 03/13/25 No overnight events. Improved work of breathing noted but reduced vesicular breath sounds still noted. Titrate down on oxygen needs, now on 13 liters on high flow. Family refused CT chest. Consider decreasing IV steriods from BID-->once daily if improved. Patient auto-antibodies. Subjective Subjective Interval history: Patient was evaluated at bedside today with her daughter, Dr. Parker. Patient was initially scheduled for chest CT to evaluate status of respiratory failure. Per daughter, CT cancelled due to patient needing to remain on high flow oxygen. Patient endorsed improvement today, but wheezing was still noted on examination. Patient satting between 95-100 on 15 L high flow oxygen FiO2 21 in the morning. Patient on 13 L high flow oxygen satting 92 FiO2 21 in the afternoon. Patient still satting >95 on 10 L high flow oxygen FiO2 21 in the evening. Plan to discontinue Hydroxyzine 25 PO QHS. Exam Vital Signs Temp Pulse Resp BP Pulse Ox O2 Del Method O2 Flow Rate 97.4 F 105 H 19 118/76 95 High Flow Nasal Cannula 18 03/13/25 08:00 03/13/25 08:27 03/13/25 08:00 03/13/25 08:27 03/13/25 08:00 03/13/25 08:00 03/13/25 08:00 FiO2 21 03/13/25 08:00 Narrative Exam General Appearance: Alert & Oriented X3, well-nourished female who is lying in bed in mild distress due to acute hypoxic respiratory failure. HEENT: Skull symmetrical and atraumatic. Conjunctivae pin and moist. Pupils equal, round, reactive to light and accommodation (PERRL). External ear without lesion or discharge. Straight, nares patient, mucosa pink, no discharge. No thyroid nodule appreciated. No cervical lymphadenopathy. Cardio: Normal Rate and Rhythm with S1 and S2 heart sounds. No murmurs or extra heart sounds auscultated. No bruits on carotid auscultation. No peripheral edema or cyanosis. Lungs: Symmetric with good expansion. Chest and back non-tender. Breath sounds vesicular with wheezing. Abdomen: Non-tender, Non-distended, Normal Reactive Bowel Sounds Neuro: Alert, cooperative, oriented to person, place, and time. Speech clear. CN grossly intact. Upper motor strength 5/5 and Lower motor strength 5/5. Sensation intact. Objective Labs 03/16/25 03:16 03/16/25 03:16 Labs: Laboratory Results - last 24 hr 03/12/25 03/12/25 03/12/25 09:44 09:51 11:50 WBC RBC Hgb Hct MCV MCH MCHC RDW Std Deviation Plt Count Neut % (Auto) Lymph % (Auto) [place] % (Auto) Eos % (Auto) Baso % (Auto) Neut # (Auto) Lymph # (Auto) [place] # (Auto) Eos # (Auto) Baso # (Auto) Immature Gran # (Auto) Absolute Nucleated RBC Immature Gran % Nucleated RBC % Puncture Site Left Radial ABG pH 7.40 ABG pCO2 44 ABG pO2 80 L D ABG HCO3 27 H ABG O2 Saturation 95 ABG Base Excess 2 FiO2 26 Sodium Potassium Chloride Carbon Dioxide Anion Gap BUN Creatinine Estim Creat Clear Calc eGFR BUN/Creatinine Ratio Glucose Calculated Osmolality Lactic Acid 2.3 H Calcium Corrected Calcium Phosphorus Magnesium Total Bilirubin AST ALT Alkaline Phosphatase Total Protein Albumin Globulin Albumin/Globulin Ratio Peritoneal Color Colorless Peritoneal Appearance Clear Peritoneal WBC 3 Peritoneal RBC 5 Periton Polynucl WBCs 33 Periton Mononucl WBCs 67 Peritoneal Tot Protein < 2 Peritoneal Albumin < 1.0 Peritoneal LDH < 14 Peritoneal Glucose > 2100 Peritoneal Amylase < 20 03/12/25 03/13/25 13:34 05:36 WBC 14.9 H RBC 3.46 L Hgb 10.5 L Hct 30.7 L MCV 89 MCH 30.3 MCHC 34.2 RDW Std Deviation 50.4 H Plt Count 297 Neut % (Auto) 89 H Lymph % (Auto) 4 L [place] % (Auto) 6 Eos % (Auto) 0 Baso % (Auto) 0 Neut # (Auto) 13.3 H Lymph # (Auto) 0.5 L [place] # (Auto) 0.9 H Eos # (Auto) 0.0 Baso # (Auto) 0.0 Immature Gran # (Auto) 0.19 H Absolute Nucleated RBC 0.02 H Immature Gran % 1 H Nucleated RBC % 0 Puncture Site ABG pH ABG pCO2 ABG pO2 ABG HCO3 ABG O2 Saturation ABG Base Excess FiO2 Sodium 133 L Potassium 3.5 Chloride 90 L Carbon Dioxide 26.4 Anion Gap 17 H BUN 73 H Creatinine 7.0 H* D Estim Creat Clear Calc 4.5 L eGFR 5 L* BUN/Creatinine Ratio 10 L Glucose 189 H Calculated Osmolality 292 Lactic Acid 2.1 H Calcium 8.5 Corrected Calcium 8.5 Phosphorus 3.6 Magnesium 2.4 Total Bilirubin 0.3 AST 34 ALT 91 H Alkaline Phosphatase 83 Total Protein 7.1 Albumin 4.2 Globulin 2.9 Albumin/Globulin Ratio 1.4 Peritoneal Color Peritoneal Appearance Peritoneal WBC Peritoneal RBC Periton Polynucl WBCs Periton Mononucl WBCs Peritoneal Tot Protein Peritoneal Albumin Peritoneal LDH Peritoneal Glucose Peritoneal Amylase ABG Interpretation ABG results: 03/09/25 03/09/25 03/10/25 07:50 18:22 09:05 ABG pH 7.45 ABG pCO2 39 ABG pO2 289 H ABG HCO3 27 H ABG O2 Saturation 101 H ABG Base Excess 2 VBG pH 7.39 7.49 VBG pCO2 49 37 D VBG pO2 70 H 68 H VBG Base Excess 4 H 5 H 03/11/25 03/12/25 10:09 09:44 ABG pH 7.40 ABG pCO2 44 ABG pO2 80 L D ABG HCO3 27 H ABG O2 Saturation 95 ABG Base Excess 2 VBG pH 7.45 VBG pCO2 40 VBG pO2 39 D VBG Base Excess 4 H Quality Measures Quality Measures none Advance care planning discussed with:: patient Assessment & Plan Assessment Current Active Medications: Generic Name Dose Route Start Last Admin Trade Name Freq PRN Reason Stop Dose Admin Acetaminophen 650 mg 03/09/25 14:41 03/13/25 03:34 Acetaminophen 325 Mg Tablet PO 04/08/25 14:40 650 mg Q6H PRN Administration Mild Pain(1-3) or Fever >100.3 Hydrocodone Bitart/Acetaminophen 1 tab 03/09/25 14:41 Hydrocodone/Apap 5/325 Tablet PO 03/14/25 14:40 Q4HR PRN PAIN SCALE 4-10(Mod-Sev Atorvastatin Calcium 40 mg 03/09/25 21:00 03/12/25 21:20 Atorvastatin Calcium 20 Mg Tablet PO 04/08/25 20:59 40 mg HS SABRINA Administration Budesonide 1 mg 03/11/25 10:00 03/13/25 06:00 Budesonide Rt 0.5 Mg/2 Ml Nebu INH 04/10/25 09:59 1 mg BIDRT SABRINA Administration Clopidogrel Bisulfate 75 mg 03/10/25 09:00 03/13/25 08:27 Clopidogrel Bisulfate 75 Mg Tablet PO 04/09/25 08:59 75 mg QDAY SABRINA Administration Dextrose 25 ml 03/12/25 08:16 Dextrose 50%-Water Inj 50 Ml Syringe IV 04/11/25 08:15 Q15MIN PRN BG 50-70 responsive npo pt Dextrose 50 ml 03/12/25 08:16 Dextrose 50%-Water Inj 50 Ml Syringe IV 04/11/25 08:15 Q15MIN PRN BG <50 OR BG <70 & pt unresponsive Diltiazem HCl 240 mg 03/10/25 09:00 03/13/25 08:27 Diltiazem Cd 120 Mg Capcr PO 04/09/25 08:59 240 mg QDAY SABRIAN Administration Gabapentin 100 mg 03/11/25 12:15 03/12/25 11:28 Gabapentin 100 Mg Capsule PO 04/10/25 12:14 Not Given BID SABRINA Glucagon 1 mg 03/12/25 08:16 Glucagon Inj 1 Mg Vial IM Q15MIN PRN BG <70, and no IV access Heparin Sodium (Porcine) 5,000 unit 03/09/25 21:00 03/13/25 08:29 Heparin Sod Inj 5000 Unit/Ml Vial SC 03/23/25 20:59 5,000 unit BID SABRINA Administration Hydroxyzine HCl 25 mg 03/09/25 21:00 03/12/25 21:23 Hydroxyzine Hcl 25 Mg Tablet PO 04/08/25 20:59 Not Given HS [facility] Insulin Human Lispro 0 unit 03/12/25 11:30 03/13/25 07:22 Insulin Lispro (Admelog) 1 Unit/0.01 Ml Unit SC 04/11/25 11:29 Not Given AC [facility] Protocol Ipratropium Ronald 0.5 mg 03/10/25 15:00 03/13/25 06:19 Ipratropium Rt 0.5 Mg/ 2.5 Ml Nebu INH 04/09/25 14:59 0.5 mg Q4HRRT SABRINA Administration Levalbuterol HCl 1.25 mg 03/10/25 15:00 03/13/25 06:19 Levalbuterol Rt 1.25 Mg/0.5 Ml Nebu INH 04/09/25 14:59 1.25 mg Q4HRRT SABRINA Administration Levalbuterol HCl 0.63 mg 03/11/25 22:53 03/13/25 03:20 Levalbuterol Rt 0.63 Mg/3 Ml Nebu INH 04/10/25 22:52 0.63 mg Q8HR PRN Administration WHEEZING Melatonin 3 mg 03/09/25 23:18 03/11/25 00:59 Melatonin 3 Mg Tablet PO 04/09/25 20:59 3 mg HS PRN Administration insomnia Methylprednisolone Sodium Succinate 60 mg 03/11/25 21:00 03/13/25 08:28 Methylprednisolone Sod Succ 40 Mg Vial IVP 03/18/25 20:59 60 mg BID SABRINA Administration Ondansetron HCl 4 mg 03/09/25 14:41 Ondansetron Inj 2 Mg/Ml Inj 2 Ml IVP 04/08/25 14:40 Q6H PRN NAUSEA OR VOMITING Protocol Pantoprazole Sodium 40 mg 03/10/25 09:00 03/13/25 08:27 Pantoprazole 40 Mg Tablet PO 04/09/25 08:59 40 mg QDAY SABRINA Administration Sennosides 1 tab 03/10/25 09:00 03/13/25 08:27 Senna Tablet PO 04/09/25 08:59 1 tab QDAY SABRINA Administration Protocol Sodium Chloride 3 ml 03/11/25 16:26 Sodium Chloride Rt Annika 0.9% 3 Ml Nebu INH 04/10/25 16:25 PRN PRN SOLN Plan Plan Patient is an 84-year-old female with a past medical history CHF HFpEF 55 to 60% (11/23/2024), systolic dysfunction, moderate PAH 55, moderate to severe with V-max 3.8, ESRD status post peritoneal dialysis dialysis, chronic asthma since early 20s, 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 #Acute hypoxic respiratory failure secondary to asthma exacerbation #Acute on Chronic Asthma exacerbation #Granulomatosis w/ Polyangiitis-formerly known as Antonia's Patient presented to the ED via EMS with a two day history of worsening shortness of breath. Patient's family noticed the patient wheezing while receiving dialysis and called EMS. While in the emergency room department, several episode of spO2 80s on nasal cannula-->transitioned to Bipap. While in ER, increased work of breathing, RR high 30s/40s with abdominal breathing noted, increase in FiO 10-->30. Repeat ABG pH 7.45, pO2 289, HC03 27-->decrease in FIO2 to 20. Daughter at bedside noted an URI several days ago and is concern this may have triggered current exacerbation. 03/11/2025 patient evaluated bedside, in acute respiratory distress, noted to have wheezing evidence of accessory muscles, trouble breathing, respiratory rate in the high 30s, saturating well on 20 L high flow nasal, oxygen, but increased work of breathing. Blood gas was ordered which showed pH and PO2 within normal range, given methylprednisone 125 mg x 1, ordered hour-long nebulization with albuterol, added budesonide nebulization. Consulted ICU/import specialist Dr. Arellano, who recommended that given patient's diagnosis of Antonia's granulomatosis in the past, and history of longstanding asthma which was relatively well-controlled until recently, noted ANCA and MPO/VA-3 antibodies. Agreed with IV steroids for now, but patient might require increasing doses if acute flare of Antonia's granulomatosis. Also considering possibility of cardiac asthma given, severe aortic stenosis leading to worsening of asthma. Patient might benefit from early aortic valve replacement as soon as clinical condition is stable. Also consider trial of hemodialysis for adequate ultrafiltration as peritoneal dialysis unable to remove adequate fluid. 03/12/2025 patient noted to have respiratory rate of 20 currently on high flow oxygen 20 L satting 96 with FiO2 21; ABG pO2 80 HCO3 27 pH 7.40 pCO2 44. Blood culture negative after 48 hours, MRSA screen negative, and Peritoneal Dialysis Culture pending. 03/13/2025 patient noted to have respiratory rate of 20 currently weaning high flow oxygen to 15 L satting between 95-100 FiO2 21 in the morning. Respiratory rate 18 with 13 L high flow oxygen satting 92 FiO2 21 in the afternoon. Plan: -Continue HFNC, currently at 15 L/min, attempt to wean down oxygen. -Methylprednisone 60 mg IV BID. -Levalbuterol 1.25 mg INH Q4HRRT, Ipratropium 0.5 INH Q4HRRT, Budenoside BIDRT -Azithromycin Course Completed (03/09/2025-03/12/2025) & Ceftriaxone 03/10/2025-03/11/2025 -Consider ANCA levels/ESR to determine possible exacerbation as relapses with Antonia are common, specially with reported coffee ground emesis #Concern for Hyperthyroidism Noted suppressed TSH and elevated T4 levels, limited utility of thyroid function test during acute illness and hospitalization. the patient will eventually require repeat thyroid function test once discharged to confirm thyroid disorders. Also patient has longstanding history of MAT likely secondary to pulmonary disorder, less likely influenced by thyroid. -Thyroid US: bilateral vascular thyroid nodules, consider fine needle aspiration -TSI/TSH-R Antibodies and TPO antibodies pending - Repeat thyroid function testing in 3 to 4 weeks after discharge, and follow-up with seasonal customer service associate #Acute on Chronic Congestive Heart Failure #CHF HFpEF 60-65% (03/12/2025) #Mild Pulmonary Vascular Congestion #Moderate to Severe Aortic Stenosis, AV vmax 3.8 m #Severe Mitral Regurgitation #Moderate PAH, 55 mmHg Patient likely acute on chronic congestive heart failure this, may only be mild exacerbation as pulmonary vascular congestion was less prominent as compared to other episode. Current BNP of 345 vs previous CHF exacerbation of 1691.Acute on chronic CHF exacerbation likely triggered by asthma exacerbation. Diagnostics: Echo (03/12/2025): Normal LV size and function. EF 60-65%. Diastolic dysfunction present but cannot be graded due to arrhythymia.Normal RV size and function. Estimated RVSP moderately elevated RVSP 50-55 mm hg.Moderate to Severe . AV vmax 3.8 m/s, Mean PG 38 mm hg. LATRICE 0.5 sq cm. -BNP 345 -Chest x-ray (03/10/2025): Mild chronic heart failure pattern, prominent vascular congestion-overall mild chornic heart failure Plan: -Lasix 40 mg IV X 1 (03/10/2025) -Strict Ins and Outs -Fluid Restrictions 1800 -Oxygen support -Cardiology consult Dr. Campa, recommend changing to hemodialysis from peritoneal dialysis #MAT #Atrial Fibrillation, less likely #EKG Abnormalities Patient has a past medical history of previous reported Atrial Fibrillation, per daughter, was told it was less likely atrial fibrillation, decision was made for no Eliquis and only Plavix on board for history of CVA. This EKG read A.fib w/ rvr but not all leads irregular and some noted with possible p waves. r waves present, no deep q waves noted. V1/V2 possible t wave abnormalities. Plan -Diltiazem 240 mg PO scheduled -AVOID BETA BLOCKERS GIVEN ASTHMA EXACERBATION -Cardiology consult completed, possible uptration to Diltiazem 360 mg PO QD if rate is not well controlled, anti-coagulation not required #Mild Troponemia #NSTEMI, type II likely demand ischemia Mild elevation in Troponin likely in the setting of demand ischemia from asthma exacerbation. Denied chest pain, palpitations, or chest pressure. No st elevation noted. Plan -Repeat Troponin 03/10 peaked at 0.141. #ESRD on peritoneal dialysis #ESRD secondary to Granulomatosis Per patient history, follows Dr. Amezcua and Dr. Coley. Patient develoepd ESRD several years ago likely secondary to Granulomatosis. Peritoneal dialysis, daily. Consult nephrology for scheduled daily dialysis. Plan -Strict in and outs. -Peritoneal dialysis -Avoid nephrotoxins, consider renal dosing -Nephrology Consulted, Dr. Amezcua, appreciate recommendations. -Peritoneal fluid culture: no growth #Single Episode of Hematemsis #Normocytic Normochromic Anemia Pertinent lab values 03/12/25: MCV 87 Hgb 10.1 RBC 3.38 Hct 29.5; 03/13/25: MCV 89 Hgb 10.5 Hct 30.7 RBC 3.46 Given past medical history of GERD, consider gastric ulcers-given reported coffee ground emesis vs Granulomatosis flare vs lower GI bleed. Plan: -Monitor hgb >7 goal -Consider occult blood AM, if worsening drop -Consider gastroenterology consult with Dr. Abraham, if repeat episodes of coffee ground emesis #History of CVA Past medical history of CVA Plan -plavix given coffee ground emesis. #GERD #Gastritis (?) Per the patient's daughter, the patient recently experienced coffee ground emesis w/ history of GERD. Plan: Continue Pantoprazole 40 mg PO QD-->Transition to Pantoprazole 40 mg IV BID (AM) #history of Fracture Neck of Right Femur Patient underwent surgical repair of closed right hip neck fracture on 12/01/[address] Lee Plan: Monitor for possible rehabilitation DVT prophylaxis: No DVT prophylaxis in setting of suspected GI bleed and anemia GI prophylaxis: IV Protonix qday Diet: Clear liquid diet Lines: Peripheral IV Code status: Full code Case discussed with attending physician Dr. Martinze and resident Dr. Angela Sena MS-4 - The patient's plan was discussed with attending Dr. Juan Miller MD PGY2 Internal Medicine Attending Provider Attestation/Addendum 84-year-old female with multiple comorbidities including heart failure with preserved EF with EF 55-60%, severe aortic stenosis with V-max 3.8, pulmonary hypertension, granulomatosis with polyangiitis with subsequent end-stage renal disease on peritoneal dialysis history of ischemic CVA with right-sided hemiparesis, hypertension, hyperlipidemia presented to the ER with shortness of breath found to have acute hypoxic respiratory failure multifactorial including asthma exacerbation and fluid overload state. Initially, patient did require BiPAP and advised to continue IV steroids, IV antibiotic therapy and plan for peritoneal dialysis. Furthermore, patient also has moderate to severe aortic stenosis with pulmonary arterial hypertension and plan to consult cardiology. Overnight, patient weaned off high flow nasal cannula to 10 L OxyMask. In addition, plan to continue IV steroids, IV antibiotic and peritoneal dialysis. Appreciate cardiology, pulmonary and nephrology input. I reviewed above note and agree with findings and plans. I have also personally examined the patient with medicine team and went over assessment and plan with medical team including tech intern and resident physician.
--- NOTE | 2025-03-13 09:38 | PD.RESPRO ---
Documentation for date of: 03/13/25 Subjective Subjective Interval history: Patient seen and examined at bedside. Patient continues to be short of breath, using accessory muscles, and primary team did consult pulmonary. Now on high flpow oxygen at 20 L O2 via [place]. Pulmonary consultation was done with Dr. 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 On high-dose steroids along with nebulizations. Also reviewed her xray and feel there is fluid overload also and recommended to change to HD as PD does not work well after few years. [employer] at [employer] failed to find extrapulmonary causes of dyspnea and was discovered to have . GPA was in remission for many years after initial diagnosis in [place] treated with prednisone and methotrexate 25 years ago , renal disease manifested later [facility] biopsy was inconclusive and repeat biopsy [place] [facility] [place] findings consistent with GPA, started on rituximab and steroid used but progressed to ESRD over time around 2019 Still continues to be on peritoneal dialysis and was recommended hemodialysis previously by me also during last admission but daughter, sons who are the caregivers were not ready for it. We also discussed during the present admission. Primary team to speak to the family, and we will also be speaking to the family members. Patient was supposed to have a left and right heart cardiac catheterization given her history of severe but cannot be performed at the present moment because of her respiratory status. Other vitals are stable, creatinine at 7.0, and cracles appreciated throughout the lung mason. Will continue to monitor closely and fluid management as per nephrology as patient on dialysis. Abnormal thyroid function tests and primary team ordered further lab tests; ultrasound of the thyroid revealed bilateral vascular solid thyroid nodules, primary team may consider ultrasound-guided fine-needle aspiration of both nodules. Exam Vital Signs Temp Pulse Resp BP Pulse Ox O2 Del Method O2 Flow Rate 97.4 F 105 H 19 118/76 95 High Flow Nasal Cannula 18 03/13/25 08:00 03/13/25 08:27 03/13/25 08:00 03/13/25 08:27 03/13/25 08:00 03/13/25 08:00 03/13/25 08:00 FiO2 21 03/13/25 08:00 Narrative Exam General: Alert and oriented x3. In no acute distress. Eyes: Pupils are equal and reactive to light bilaterally. HEENT: Atraumatic, normocephalic. No JVD noted. Mucosa moist. Cardiovascular: Normal S1 and soft S2,. Tachycardic, 3/6 ejection systolic murmur heard at aortic area, 3/6 holosystolic murmur heard on the mitral area and parasternal area, trace peripheral pitting edema noted. Respiratory: Mild respiratory distress on oxygen via nasal cannula, use of accessory muscles appreciated, bilateral air entry present, wheezing noted. Significant crackles throughout the lung mason. Abdomen: Soft, nontender, nondistended. Skin: No rash. Warm to touch. Musculoskeletal: No gross injuries. Able to move all 4 extremities. Neuro: Alert and oriented x3. No focal neuro deficits. Psych: mildly depressed. Objective Labs 03/13/25 05:36 03/13/25 05:36 Labs: Laboratory Results - last 24 hr 03/12/25 03/12/25 03/12/25 09:44 09:51 11:50 WBC RBC Hgb Hct MCV MCH MCHC RDW Std Deviation Plt Count Neut % (Auto) Lymph % (Auto) Cowley % (Auto) Eos % (Auto) Baso % (Auto) Neut # (Auto) Lymph # (Auto) Cowley # (Auto) Eos # (Auto) Baso # (Auto) Immature Gran # (Auto) Absolute Nucleated RBC Immature Gran % Nucleated RBC % Puncture Site Left Radial ABG pH 7.40 ABG pCO2 44 ABG pO2 80 L D ABG HCO3 27 H ABG O2 Saturation 95 ABG Base Excess 2 FiO2 26 Sodium Potassium Chloride Carbon Dioxide Anion Gap BUN Creatinine Estim Creat Clear Calc eGFR BUN/Creatinine Ratio Glucose Calculated Osmolality Lactic Acid 2.3 H Calcium Corrected Calcium Phosphorus Magnesium Total Bilirubin AST ALT Alkaline Phosphatase Total Protein Albumin Globulin Albumin/Globulin Ratio Peritoneal Color Colorless Peritoneal Appearance Clear Peritoneal WBC 3 Peritoneal RBC 5 Periton Polynucl WBCs 33 Periton Mononucl WBCs 67 Peritoneal Tot Protein < 2 Peritoneal Albumin < 1.0 Peritoneal LDH < 14 Peritoneal Glucose > 2100 Peritoneal Amylase < 20 03/12/25 03/13/25 13:34 05:36 WBC 14.9 H RBC 3.46 L Hgb 10.5 L Hct 30.7 L MCV 89 MCH 30.3 MCHC 34.2 RDW Std Deviation 50.4 H Plt Count 297 Neut % (Auto) 89 H Lymph % (Auto) 4 L Cowley % (Auto) 6 Eos % (Auto) 0 Baso % (Auto) 0 Neut # (Auto) 13.3 H Lymph # (Auto) 0.5 L Cowley # (Auto) 0.9 H Eos # (Auto) 0.0 Baso # (Auto) 0.0 Immature Gran # (Auto) 0.19 H Absolute Nucleated RBC 0.02 H Immature Gran % 1 H Nucleated RBC % 0 Puncture Site ABG pH ABG pCO2 ABG pO2 ABG HCO3 ABG O2 Saturation ABG Base Excess FiO2 Sodium 133 L Potassium 3.5 Chloride 90 L Carbon Dioxide 26.4 Anion Gap 17 H BUN 73 H Creatinine 7.0 H* D Estim Creat Clear Calc 4.5 L eGFR 5 L* BUN/Creatinine Ratio 10 L Glucose 189 H Calculated Osmolality 292 Lactic Acid 2.1 H Calcium 8.5 Corrected Calcium 8.5 Phosphorus 3.6 Magnesium 2.4 Total Bilirubin 0.3 AST 34 ALT 91 H Alkaline Phosphatase 83 Total Protein 7.1 Albumin 4.2 Globulin 2.9 Albumin/Globulin Ratio 1.4 Peritoneal Color Peritoneal Appearance Peritoneal WBC Peritoneal RBC Periton Polynucl WBCs Periton Mononucl WBCs Peritoneal Tot Protein Peritoneal Albumin Peritoneal LDH Peritoneal Glucose Peritoneal Amylase ABG Interpretation ABG results: 03/09/25 03/09/25 03/10/25 07:50 18:22 09:05 ABG pH 7.45 ABG pCO2 39 ABG pO2 289 H ABG HCO3 27 H ABG O2 Saturation 101 H ABG Base Excess 2 VBG pH 7.39 7.49 VBG pCO2 49 37 D VBG pO2 70 H 68 H VBG Base Excess 4 H 5 H 03/11/25 03/12/25 10:09 09:44 ABG pH 7.40 ABG pCO2 44 ABG pO2 80 L D ABG HCO3 27 H ABG O2 Saturation 95 ABG Base Excess 2 VBG pH 7.45 VBG pCO2 40 VBG pO2 39 D VBG Base Excess 4 H Quality Measures Quality Measures none Advance care planning discussed with:: patient Assessment & Plan Assessment Current Active Medications: Generic Name Dose Route Start Last Admin Trade Name Freq PRN Reason Stop Dose Admin Acetaminophen 650 mg 03/09/25 14:41 03/13/25 03:34 Acetaminophen 325 Mg Tablet PO 04/08/25 14:40 650 mg Q6H PRN Administration Mild Pain(1-3) or Fever >100.3 Hydrocodone Bitart/Acetaminophen 1 tab 03/09/25 14:41 Hydrocodone/Apap 5/325 Tablet PO 03/14/25 14:40 Q4HR PRN PAIN SCALE 4-10(Mod-Sev Atorvastatin Calcium 40 mg 03/09/25 21:00 03/12/25 21:20 Atorvastatin Calcium 20 Mg Tablet PO 04/08/25 20:59 40 mg HS SABRINA Administration Budesonide 1 mg 03/11/25 10:00 03/13/25 06:00 Budesonide Rt 0.5 Mg/2 Ml Nebu INH 04/10/25 09:59 1 mg BIDRT SABRINA Administration Clopidogrel Bisulfate 75 mg 03/10/25 09:00 03/13/25 08:27 Clopidogrel Bisulfate 75 Mg Tablet PO 04/09/25 08:59 75 mg QDAY SABRINA Administration Dextrose 25 ml 03/12/25 08:16 Dextrose 50%-Water Inj 50 Ml Syringe IV 04/11/25 08:15 Q15MIN PRN BG 50-70 responsive npo pt Dextrose 50 ml 03/12/25 08:16 Dextrose 50%-Water Inj 50 Ml Syringe IV 04/11/25 08:15 Q15MIN PRN BG <50 OR BG <70 & pt unresponsive Diltiazem HCl 240 mg 03/10/25 09:00 03/13/25 08:27 Diltiazem Cd 120 Mg Capcr PO 04/09/25 08:59 240 mg QDAY SABRINA Administration Gabapentin 100 mg 03/11/25 12:15 03/12/25 11:28 Gabapentin 100 Mg Capsule PO 04/10/25 12:14 Not Given BID SABRINA Glucagon 1 mg 03/12/25 08:16 Glucagon Inj 1 Mg Vial IM Q15MIN PRN BG <70, and no IV access Heparin Sodium (Porcine) 5,000 unit 03/09/25 21:00 03/13/25 08:29 Heparin Sod Inj 5000 Unit/Ml Vial SC 03/23/25 20:59 5,000 unit BID SABRINA Administration Hydroxyzine HCl 25 mg 03/09/25 21:00 03/12/25 21:23 Hydroxyzine Hcl 25 Mg Tablet PO 04/08/25 20:59 Not Given HS SABRINA Insulin Human Lispro 0 unit 03/12/25 11:30 03/13/25 07:22 Insulin Lispro (Admelog) 1 Unit/0.01 Ml Unit SC 04/11/25 11:29 Not Given AC SABRINA Protocol Ipratropium [place] 0.5 mg 03/10/25 15:00 03/13/25 06:19 Ipratropium Rt 0.5 Mg/ 2.5 Ml Nebu INH 04/09/25 14:59 0.5 mg Q4HRRT SABRINA Administration Levalbuterol HCl 1.25 mg 03/10/25 15:00 03/13/25 06:19 Levalbuterol Rt 1.25 Mg/0.5 Ml Nebu INH 04/09/25 14:59 1.25 mg Q4HRRT SABRINA Administration Levalbuterol HCl 0.63 mg 03/11/25 22:53 03/13/25 03:20 Levalbuterol Rt 0.63 Mg/3 Ml Nebu INH 04/10/25 22:52 0.63 mg Q8HR PRN Administration WHEEZING Melatonin 3 mg 03/09/25 23:18 03/11/25 00:59 Melatonin 3 Mg Tablet PO 04/09/25 20:59 3 mg HS PRN Administration insomnia Methylprednisolone Sodium Succinate 60 mg 03/11/25 21:00 03/13/25 08:28 Methylprednisolone Sod Succ 40 Mg Vial IVP 03/18/25 20:59 60 mg BID SABRINA Administration Ondansetron HCl 4 mg 03/09/25 14:41 Ondansetron Inj 2 Mg/Ml Inj 2 Ml IVP 04/08/25 14:40 Q6H PRN NAUSEA OR VOMITING Protocol Pantoprazole Sodium 40 mg 03/10/25 09:00 03/13/25 08:27 Pantoprazole 40 Mg Tablet PO 04/09/25 08:59 40 mg QDAY SABRINA Administration Sennosides 1 tab 03/10/25 09:00 03/13/25 08:27 Senna Tablet PO 04/09/25 08:59 1 tab QDAY SABRINA Administration Protocol Sodium Chloride 3 ml 03/11/25 16:26 Sodium Chloride Rt Annika 0.9% 3 Ml Nebu INH 04/10/25 16:25 PRN PRN SOLN Plan A 84-year-old female with a past medical history of severe aortic stenosis with a valve area of 0.5 cm?, moderate MR and TR, moderate PAH, preserved EF with diastolic dysfunction, end-stage renal disease on peritoneal dialysis for the last 4 to 5 years, Antonia's granulomatosis diagnosed 25 years ago, chronic severe asthma since her early 20s, history of multifocal atrial tachycardia, 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 1. Acute hypoxic respiratory failure mostly secondary to fluid overload 2/2 failing PD, and 2. Acute asthma exacerbation 3. Severe aortic stenosis with a valve area less than 0.5 cm? 4. End-stage renal disease on peritoneal dialysis for past 4 to 5 years mostly secondary to Antonia's granulomatosis 5. Abnormal thyroid function tests 6. Multifocal atrial tachycardia 7. Valvular heart disease with severe aortic stenosis, moderate MR and TR 8. Moderate pulmonary artery pretension with an RVSP of 55 mmHg 9. Chronic diastolic congestive heart failure 10. 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 Patient started on high-dose steroids with Solu-Medrol 60 mg every every 8 hours decreased to every 12 hours, along with nebulizations and inhalers. Still continues to be on oxygen and now use of any accessory muscles appreciated. Combination of upper respiratory tract symptoms along with recent emotional stress. Also on IV antibiotics. Patient has been tachycardic On arrival and EKG reviewed. EKG shows irregularly irregular rhythm but most of the time is 100 to 130 bpm which is typical of multifocal atrial tachycardia. Has irregularly irregular rhythm with varying PP and CT intervals. 3 distinct P wave morphologies are also seen in the lead II. Also patient has underlying lung disease which could contribute's significantly for the multifocal atrial tachycardia Continue rate control with diltiazem 240 mg once daily as no beta-pratik can be given because of the as above. Will uptitrate the diltiazem to 360 mg once daily and if rate is not well-controlled. No anticoagulation required. Patient is mildly elevated troponins at 0.34 and 0.145. Troponin elevation mostly secondary to NSTEMI type II in the setting of supply/demand mismatch. Patient denies any Chest pain or chest pressure at the present moment. EKG showed marked without any acute ST-T changes history of ischemia. Patient is scheduled to have left and right heart cardiac catheterization on Wednesday as outpatient but cannot be done because of her acute hypoxic respiratory failure at the present point of time. Continue Plavix for now and high intensity statin. No beta-pratik because of asthma. No heparin drip required. Patient does have severe as noted above with a valve area of less than 0.5 cm?. Patient also has moderate MR and TR with moderate PAH noted on the previous echocardiogram in November 2024. Workup started as outpatient for the severe and as noted previously was scheduled for the left heart cardiac catheterization and right heart cardiac catheterization which will need to be postponed for now given her acute hypoxic respiratory failure. Will continue further workup of the severe as outpatient. 03/13/2025: Patient continues to be short of breath, using accessory muscles, and primary team did consult pulmonary. Now on high flpow oxygen at 20 L O2 via [place]. Pulmonary consultation was done with Dr. 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 On high-dose steroids along with nebulizations. Also reviewed her xray and feel there is fluid overload also and recommended to change to HD as PD does not work well after few years. [employer] at [employer] failed to find extrapulmonary causes of dyspnea and was discovered to have . GPA was in remission for many years after initial diagnosis in [place] treated with prednisone and methotrexate 25 years ago , renal disease manifested later [facility] biopsy was inconclusive and repeat biopsy at [facility] [place] findings consistent with GPA, started on rituximab and steroid used but progressed to ESRD over time around 2019 Still continues to be on peritoneal dialysis and was recommended hemodialysis previously by me also during last admission but daughter, sons whoa re the caregivers were not ready for it. We also discussed during the present admission. Primary team to speak to the family, and we will also be speaking to the family members. Patient was supposed to have a left and right heart cardiac catheterization given her history of severe but cannot be performed at the present moment because of her respiratory status. Other vitals are stable, creatinine at 7.0, and cracles appreciated throughout the lung mason. Will continue to monitor closely and fluid management as per nephrology as patient on dialysis. Abnormal thyroid function tests and primary team ordered further lab tests and also ultrasound of the thyroid revealed bilateral vascular solid thyroid nodules, primary team may consider ultrasound-guided fine-needle aspiration of both nodules. Will continue to monitor closely and fluid management as per nephrology as patient on dialysis. Continue with Diltiazem 240mg daily for rate control. Management of rest of the medical conditions as per primary team and other consultants. Thank you for the consult and allowing me to participate in the care of the patient. Cardiology will continue to follow. The patient's management plan was discussed with my attending physician MD Kevin Murcia MD, PGY3 Attending Provider Attestation/Addendum I have personally seen and examined the patient separately on the above date of service and discussed the plan of care with the resident. I reviewed the resident Dr. Kevin Sullivan consultation progress note and agree with the resident findings and plan in the note above and have also edited the documentation to reflect my findings and plan. I had a long discussion with the patient as well as the daughter on the phone later for more than 30 minutes regarding patient's present clinical status and workup done till now as well as the treatment plan. Discussed with the patient and that she wanted her son and daughter to make all the decisions. Informed the daughter about the findings from the pulmonary consultation and the patient has still fluid overload with interstitial edema and recommended to do hemodialysis to help with the fluid overload state as a PD because he decreases after few years. Discussed in detail about the option to start hemodialysis temporarily with a tunneled dialysis catheter for few months until she gets better and if possible do further cardiac workup at that point of time when she is more euvolemic. Daughter and the rest of the family are not interested in hemodialysis as they did not have his good experience or outcome for their father (patient's ). Recommended to discuss with the hotel or motel manager If patient can be restarted on peritoneal dialysis after having temporary hemodialysis tunneled catheter was for the next 2 to 3 months which will help her get better and complete all the required preprocedure workup to evaluate if she is an ideal candidate for TAVR. Also the daughter expressed that she wanted her mother to be home and not have any invasive procedures as they are expecting their other brother to come from out of the country and see the patient. Discussed with the daughter who has explained to me that her mother is tired at the present point of time and has expressed that she does not want to do any invasive procedures at the present moment and has been losing interest to continue to survive after she lost her close relative in the past few weeks. Patient does appear to have lost a lot of motivation over the last couple of months after the fall and left femoral repair and right humerus fracture along with the multiple admissions. Daughter understands to discuss further and will make a decision about hemodialysis temporary versus for single-vessel procedures. Jori Olivares M.D. Interventional Cardiology
--- NOTE | 2025-03-13 10:49 | PD.RESPRO ---
Documentation for date of: 03/13/25 Subjective Subjective Interval history: Overnight events: No acute events overnight. Patient was seen and examined at bedside. AM vitals and labs reviewed. Patient started peritoneal dialysis yesterday at 2003 and completed this morning at 07. No issues were reported during dialysis, catheter site located in right upper quadrant, and 663 mL of pale yellow fluid with no order was removed. BUN 73, creatinine 7.0, and GFR 5. WBC elevated to 14.9 and sodium remains decreased at 133. Still limiting IV fluids. Ins/outs 900/0. During today's visit patient appeared to be calmer and had slightly less work of breathing. Patient is still on high flow nasal cannula at 15 L/min and 21% oxygen. Patient is still difficult to understand and nursing has noted some confusion periodically. Patient noted to have tremors in hands bilaterally. Patient endorses difficulty with sleeping and is tired today. Patient also complains of headache and back pain. No other major concerns expressed during today's visit. Was made aware by nursing staff that the patient's daughter would like the patient off high flow nasal cannula before getting CT chest without contrast. Review of systems otherwise negative except for what is mentioned above. Exam Vital Signs Temp Pulse Resp BP Pulse Ox O2 Del Method O2 Flow Rate 97.4 F 101 H 26 H 118/76 99 High Flow Nasal Cannula 13 03/13/25 08:00 03/13/25 10:31 03/13/25 10:31 03/13/25 08:27 03/13/25 10:31 03/13/25 08:00 03/13/25 10:31 FiO2 21 03/13/25 10:31 Narrative Exam Physical Exam: General: Alert, no acute distress. Skin: Warm, dry, intact, no obvious rash. Head: Normocephalic, atraumatic. Eye: Normal conjunctiva, PERRL. Cardiovascular: Regular rate and rhythm, systolic murmur, +S1/S2. Respiratory: Lungs are clear to auscultation, respirations labored on HFNC, use of accessory muscles, crackles on exhalation throughout. Gastrointestinal: Soft, nontender, non-distended. No guarding or rebound tenderness. Extremities: No edema, no cyanosis, no clubbing. 2+ radial pulse bilaterally, 2+ posterior tibial pulse bilaterally. Neuro: No focal deficits observed. Conversant, moving all extremities. No overt cerebellar signs/incoordination. Psychiatric: Cooperative, tangential speech. Objective Labs 03/17/25 05:16 03/17/25 05:16 Labs: Laboratory Results - last 24 hr 03/12/25 03/12/25 03/12/25 09:51 11:50 13:34 WBC RBC Hgb Hct MCV MCH MCHC RDW Std Deviation Plt Count Neut % (Auto) Lymph % (Auto) [place] % (Auto) Eos % (Auto) Baso % (Auto) Neut # (Auto) Lymph # (Auto) [place] # (Auto) Eos # (Auto) Baso # (Auto) Immature Gran # (Auto) Absolute Nucleated RBC Immature Gran % Nucleated RBC % Sodium Potassium Chloride Carbon Dioxide Anion Gap BUN Creatinine Estim Creat Clear Calc eGFR BUN/Creatinine Ratio Glucose Calculated Osmolality Lactic Acid 2.3 H 2.1 H Calcium Corrected Calcium Phosphorus Magnesium Total Bilirubin AST ALT Alkaline Phosphatase Total Protein Albumin Globulin Albumin/Globulin Ratio Peritoneal Color Colorless Peritoneal Appearance Clear Peritoneal WBC 3 Peritoneal RBC 5 Periton Polynucl WBCs 33 Periton Mononucl WBCs 67 Peritoneal Tot Protein < 2 Peritoneal Albumin < 1.0 Peritoneal LDH < 14 Peritoneal Glucose > 2100 Peritoneal Amylase < 20 03/13/25 05:36 WBC 14.9 H RBC 3.46 L Hgb 10.5 L Hct 30.7 L MCV 89 MCH 30.3 MCHC 34.2 RDW Std Deviation 50.4 H Plt Count 297 Neut % (Auto) 89 H Lymph % (Auto) 4 L [place] % (Auto) 6 Eos % (Auto) 0 Baso % (Auto) 0 Neut # (Auto) 13.3 H Lymph # (Auto) 0.5 L [place] # (Auto) 0.9 H Eos # (Auto) 0.0 Baso # (Auto) 0.0 Immature Gran # (Auto) 0.19 H Absolute Nucleated RBC 0.02 H Immature Gran % 1 H Nucleated RBC % 0 Sodium 133 L Potassium 3.5 Chloride 90 L Carbon Dioxide 26.4 Anion Gap 17 H BUN 73 H Creatinine 7.0 H* D Estim Creat Clear Calc 4.5 L eGFR 5 L* BUN/Creatinine Ratio 10 L Glucose 189 H Calculated Osmolality 292 Lactic Acid Calcium 8.5 Corrected Calcium 8.5 Phosphorus 3.6 Magnesium 2.4 Total Bilirubin 0.3 AST 34 ALT 91 H Alkaline Phosphatase 83 Total Protein 7.1 Albumin 4.2 Globulin 2.9 Albumin/Globulin Ratio 1.4 Peritoneal Color Peritoneal Appearance Peritoneal WBC Peritoneal RBC Periton Polynucl WBCs Periton Mononucl WBCs Peritoneal Tot Protein Peritoneal Albumin Peritoneal LDH Peritoneal Glucose Peritoneal Amylase ABG Interpretation ABG results: 03/09/25 03/09/25 03/10/25 07:50 18:22 09:05 ABG pH 7.45 ABG pCO2 39 ABG pO2 289 H ABG HCO3 27 H ABG O2 Saturation 101 H ABG Base Excess 2 VBG pH 7.39 7.49 VBG pCO2 49 37 D VBG pO2 70 H 68 H VBG Base Excess 4 H 5 H 03/11/25 03/12/25 10:09 09:44 ABG pH 7.40 ABG pCO2 44 ABG pO2 80 L D ABG HCO3 27 H ABG O2 Saturation 95 ABG Base Excess 2 VBG pH 7.45 VBG pCO2 40 VBG pO2 39 D VBG Base Excess 4 H Quality Measures Quality Measures none Advance care planning discussed with:: patient Assessment & Plan Assessment Current Active Medications: Generic Name Dose Route Start Last Admin Trade Name Freq PRN Reason Stop Dose Admin Acetaminophen 650 mg 03/09/25 14:41 03/13/25 03:34 Acetaminophen 325 Mg Tablet PO 04/08/25 14:40 650 mg Q6H PRN Administration Mild Pain(1-3) or Fever >100.3 Hydrocodone Bitart/Acetaminophen 1 tab 03/09/25 14:41 Hydrocodone/Apap 5/325 Tablet PO 03/14/25 14:40 Q4HR PRN PAIN SCALE 4-10(Mod-Sev Atorvastatin Calcium 40 mg 03/09/25 21:00 03/12/25 21:20 Atorvastatin Calcium 20 Mg Tablet PO 04/08/25 20:59 40 mg HS SABRINA Administration Budesonide 1 mg 03/11/25 10:00 03/13/25 06:00 Budesonide Rt 0.5 Mg/2 Ml Nebu INH 04/10/25 09:59 1 mg BIDRT SABRINA Administration Clopidogrel Bisulfate 75 mg 03/10/25 09:00 03/13/25 08:27 Clopidogrel Bisulfate 75 Mg Tablet PO 04/09/25 08:59 75 mg QDAY SABRINA Administration Dextrose 25 ml 03/12/25 08:16 Dextrose 50%-Water Inj 50 Ml Syringe IV 04/11/25 08:15 Q15MIN PRN BG 50-70 responsive npo pt Dextrose 50 ml 03/12/25 08:16 Dextrose 50%-Water Inj 50 Ml Syringe IV 04/11/25 08:15 Q15MIN PRN BG <50 OR BG <70 & pt unresponsive Diltiazem HCl 240 mg 03/10/25 09:00 03/13/25 08:27 Diltiazem Cd 120 Mg Capcr PO 04/09/25 08:59 240 mg QDAY SABRINA Administration Gabapentin 100 mg 03/11/25 12:15 03/12/25 11:28 Gabapentin 100 Mg Capsule PO 04/10/25 12:14 Not Given BID SABRINA Glucagon 1 mg 03/12/25 08:16 Glucagon Inj 1 Mg Vial IM Q15MIN PRN BG <70, and no IV access Heparin Sodium (Porcine) 5,000 unit 03/09/25 21:00 03/13/25 08:29 Heparin Sod Inj 5000 Unit/Ml Vial SC 03/23/25 20:59 5,000 unit BID SABRINA Administration Insulin Human Lispro 0 unit 03/12/25 11:30 03/13/25 07:22 Insulin Lispro (Admelog) 1 Unit/0.01 Ml Unit SC 04/11/25 11:29 Not Given AC [facility] Protocol Ipratropium [place] 0.5 mg 03/10/25 15:00 03/13/25 10:30 Ipratropium Rt 0.5 Mg/ 2.5 Ml Nebu INH 04/09/25 14:59 0.5 mg Q4HRRT SABRINA Administration Levalbuterol HCl 1.25 mg 03/10/25 15:00 03/13/25 10:30 Levalbuterol Rt 1.25 Mg/0.5 Ml Nebu INH 04/09/25 14:59 1.25 mg Q4HRRT SABRINA Administration Levalbuterol HCl 0.63 mg 03/11/25 22:53 03/13/25 03:20 Levalbuterol Rt 0.63 Mg/3 Ml Nebu INH 04/10/25 22:52 0.63 mg Q8HR PRN Administration WHEEZING Melatonin 3 mg 03/09/25 23:18 03/11/25 00:59 Melatonin 3 Mg Tablet PO 04/09/25 20:59 3 mg HS PRN Administration insomnia Methylprednisolone Sodium Succinate 60 mg 03/11/25 21:00 07/08/25 08:28 Methylprednisolone Sod Succ 40 Mg Vial IVP 03/18/25 20:59 60 mg BID SABRINA Administration Ondansetron HCl 4 mg 03/09/25 14:41 Ondansetron Inj 2 Mg/Ml Inj 2 Ml IVP 04/08/25 14:40 Q6H PRN NAUSEA OR VOMITING Protocol Pantoprazole Sodium 40 mg 03/10/25 09:00 03/13/25 08:27 Pantoprazole 40 Mg Tablet PO 04/09/25 08:59 40 mg QDAY SABRINA Administration Sennosides 1 tab 03/10/25 09:00 03/13/25 08:27 Senna Tablet PO 04/09/25 08:59 1 tab QDAY SABRINA Administration Protocol Sodium Chloride 3 ml 03/11/25 16:26 Sodium Chloride Rt Annika 0.9% 3 Ml Nebu INH 04/10/25 16:25 PRN PRN SOLN Plan Mrs. 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 Nephrology was consulted for management of her peritoneal dialysis. #ESRD on Peritoneal Dialysis #ESRD 2/2 Donna's Granulomatosis - Continue nightly peritoneal dialysis - Patient's daughter discussed peritoneal dialysis timing with Dr. Amezcua. - Will hold off on hemodialysis for now given that the patient is not fluid overloaded. - Continue to monitor renal function. - Avoid IV hydration given past history of fluid overload and CHF. - Avoid nephrotoxic drugs and renally adjust medications. - Nephrology will continue to follow. Patient was discussed with the Nephrology attending, Dr. Amezcua. Thank you for allowing us to participate in the care of this patient. Rogelio Asher, PGY-1 Attending Provider Attestation/Addendum Agree with assessment and plan and finding of resident. Temo Amezcua MD
[2025-03-13] MEDS: BREZTRI 2 EA INH ×2 (11:55→21:25)
--- NOTE | 2025-03-13 12:17 | PC.NURSE ---
Called to room to check on patient. Patient wanting to take bedside inhalers. Spoke with son in law in regards to having medication checked with pharmacist and doctor due previous orders. Inhalers given to pharmacist. Dr. Martinez is aware of inhalers at bedside. Doctor will review orders. Medication label received for one of the inhalers. Will continue to monitor.
--- NOTE | 2025-03-13 12:43 | PC.LAC ---
Daughter refused Catscan to be done today for patient. Notified Doctor.
--- NOTE | 2025-03-13 15:00 | PC.SS ---
Rounding Note: Patient receiving IV steroids. Possible d/c tomorrow.
[2025-03-13] MEDS: POLYETHYLENE GLYCOL 17 GM PACKET PO (16:43)
[2025-03-13] MEDS: ATORVASTATIN CALCIUM 20 MG TABLET 40 MG PO (20:22)
[2025-03-14] VITALS (15 sets, daily range): BP systolic 129–163; BP diastolic 70–97; PULSE 95–132; RESP 16–28; TEMP 36.1–36.8; O2SAT 92–100
[2025-03-14] MEDS: LEVALBUTEROL RT 1.25 MG/0.5 ML NEBU INH ×6 (02:21→22:46)
[2025-03-14] MEDS: IPRATROPIUM RT 0.5 MG/ 2.5 ML NEBU INH ×6 (02:21→22:46)
[2025-03-14] MEDS: BREZTRI 2 EA INH ×2 (06:11→22:56)
[2025-03-14] MEDS: BUDESONIDE RT 0.5 MG/2 ML NEBU 1 MG INH (06:11)
[2025-03-14 06:25] LABS: IgE, Serum* 8 kU/L (114 OR LESS)
[2025-03-14 06:34] LABS: Basophils # (Auto) 0.0 Thou/mm3 (0.0-0.2); Basophils % (Auto) 0 % (0-2.5); Eosinophils # (Auto) 0.0 Thou/mm3 (0.0-0.5); Eosinophils % (Auto) 0 % (0-10); Hematocrit 26.6 % (36.0-46.0); Hemoglobin 9.4 g/dL (12.0-16.0); Immature Granulocytes Auto 0.23 Thou/mm3 (0.00-0.00); Lymphocytes # (Auto) 0.5 Thou/mm3 (1.0-4.8); Lymphocytes % (Auto) 4 % (10-50); Mean Corpuscular HGB Conc 35.3 g/dl (31.0-37.0); Mean Corpuscular Hemoglobin 30.2 pg (25.0-35.0); Mean Corpuscular Volume 86 fL (80-100); Monocytes # (Auto) 0.9 Thou/mm3 (0.0-0.8); Monocytes % (Auto) 6 % (0-12); Neutrophils # (Auto) 13.1 Thou/mm3 (1.8-7.7); Neutrophils % (Auto) 89 % (37-80); Nucleated Red Blood Cell # 0.00 Thou/mm3 (0.00-0.00); Nucleated Red Blood Cell % 0 /100 WBC (0); Platelet Count 282 Thou/mm3 (140-440); RDW Standard Deviation 48.0 fL (36.4-46.3); Red Blood Count 3.11 Miln/mm3 (4.00-5.20); White Blood Count 14.8 Thou/mm3 (3.6-11.0)
[2025-03-14 06:58] LABS: Alanine Aminotransferase 105 U/L (10-49); Albumin, Serum 3.7 gm/dL (3.4-4.8); Albumin/Globulin Ratio 1.5 (1.2-2.2); Alkaline Phosphatase 74 U/L (46-116); Anion Gap 16 (7-16); Aspartate Amino Transferase 36 U/L (0-34); BUN/Creatinine Ratio 11 Ratio (12-20); Bilirubin,Total 0.3 mg/dL (0.3-1.2); Blood Urea Nitrogen 76 mg/dL (9-23); Calcium 8.2 mg/dL (8.3-10.6); Calcium (Corrected) 8.4 mg/dL (8.5-10.1); Carbon Dioxide 27.3 mMol/L (20.0-31.0); Chloride 90 mMol/L (98-107); Creatinine (Component) 6.7 mg/dL (0.6-1.3); Estimated Creatinine Clearance 4.6 mL/min (>60); Globulin 2.5 gm/dL (2.3-3.5); Glucose 154 mg/dL (74-106); Magnesium 2.2 mg/dL (1.6-2.6); Osmolality,Calculated 291 (275-295); Phosphorous 4.0 mg/dL (2.4-5.1); Potassium 3.5 mMol/L (3.4-5.1); Sodium 133 mMol/L (136-145); Total Protein 6.2 gm/dL (5.7-8.2); eGFR 6 See Note
--- NOTE | 2025-03-14 08:50 | PC.SS ---
Follow up note: Pt is on 13 liters of O2. Wean down O2. Pt will return home upon dc.
[2025-03-14] MEDS: LACTULOSE SYRUP 20 GM/30 ML UDC 10 GM PO (09:16)
[2025-03-14] MEDS: DILTIAZEM CD 120 MG CAPCR 240 MG PO (09:17)
[2025-03-14] MEDS: PANTOPRAZOLE 40 MG TABLET PO (09:17)
[2025-03-14] MEDS: CLOPIDOGREL BISULFATE 75 MG TABLET PO (09:17)
[2025-03-14] MEDS: HEPARIN SOD INJ 5000 UNIT/ML VIAL SC ×2 (09:17→21:08)
--- NOTE | 2025-03-14 10:26 | PD.RESPRO ---
Documentation for date of: 03/14/25 No overnight events reported. Patient examined at bedside. Patient's last bowel movement on 03/11/2025. Senna and lactulose on board, in addition Fleet enema added. Patient continues to be weaned down from high flow, now currently on 5 L. Methylprednisone titrated down from 60 mg twice daily 60 mg daily IV. Potassium repleted. Patient continues to have 1 to 2 seconds of heart rates in the 150s. EKG obtained and HR 100, likely MAT and less likely atrial fibrialtion, which may be worsened by B agonists. Leukocytosis likely secondary to steroid use, patient remains afebrile. NO BETA blockers given history of asthma. If pained worsens, with increased HR, please obatin EKG. Consider additional dilitazem dose. Family spoke at length with attending provider, family would like to proceed with HD, nephrology updated. NPO aftermight night for IR guided tunnel cath. Subjective Subjective Interval history: Patient was evaluated bedside today with her daughter, Dr. Patel. Patient was sitting up independently and exhibited decreased work of breathing in the morning, but appeared to be in mild distress in the afternoon. Wheezing was noted on examination. Patient was no longer on high flow oxygen. Patient on 5L O2 satting between 93-97 FiO2 21 in the morning. Patient on 4L O2 satting 98 FiO2 21 in the afternoon. Patient has not had a bowel movement in 4 days. Started on Lactulose 10 gm PO QD syrup and soap suds enema. Plan to change methylprednisolone 60 mg IVP BID to QD tomorrow. Discontinued budesonide 1 mg INH BIDRT due to patient preferring their own Breztri inhaler. Exam Vital Signs Temp Pulse Resp BP Pulse Ox O2 Del Method O2 Flow Rate 98.2 F 121 H 24 H 144/84 H 97 Nasal Cannula 4 03/14/25 08:00 03/14/25 10:01 03/14/25 10:01 03/14/25 09:17 03/14/25 10:01 03/14/25 08:00 03/14/25 10:01 FiO2 21 03/14/25 06:14 Narrative Exam General Appearance: Alert & Oriented X3, well-nourished female who is lying in bed in mild distress to acute respiratory failure. HEENT: Skull symmetrical and atraumatic. Conjunctivae pink and moist. Pupils equal, round, reactive to light and accommodation (PERRL). External ear without lesion or discharge. Straight, nares patient, mucosa pink, no discharge. No thyroid nodule appreciated. No cervical lymphadenopathy. Cardio: Normal Rate and Rhythm with S1 and S2 heart sounds. No murmurs or extra heart sounds auscultated. No bruits on carotid auscultation. No peripheral edema or cyanosis. Lungs: Symmetric with good expansion. Chest and back non-tender. Breath sounds vesicular with wheezing. Abdomen: Non-tender, Non-distended, Normal Reactive Bowel Sounds Neuro: Alert, cooperative, oriented to person, place, and time. Speech clear. CN grossly intact. Upper motor strength 5/5 and Lower motor strength 5/5. Sensation intact. Objective Labs 03/16/25 03:16 03/16/25 03:16 Labs: Laboratory Results - last 24 hr 03/12/25 03/14/25 09:51 05:53 WBC 14.8 H RBC 3.11 L Hgb 9.4 L Hct 26.6 L MCV 86 MCH 30.2 MCHC 35.3 RDW Std Deviation 48.0 H Plt Count 282 Neut % (Auto) 89 H Lymph % (Auto) 4 L [place] % (Auto) 6 Eos % (Auto) 0 Baso % (Auto) 0 Neut # (Auto) 13.1 H Lymph # (Auto) 0.5 L [place] # (Auto) 0.9 H Eos # (Auto) 0.0 Baso # (Auto) 0.0 Immature Gran # (Auto) 0.23 H Absolute Nucleated RBC 0.00 Immature Gran % 2 H Nucleated RBC % 0 Sodium 133 L Potassium 3.5 Chloride 90 L Carbon Dioxide 27.3 Anion Gap 16 BUN 76 H Creatinine 6.7 H* Estim Creat Clear Calc 4.6 L eGFR 6 L* BUN/Creatinine Ratio 11 L Glucose 154 H Calculated Osmolality 291 Calcium 8.2 L Corrected Calcium 8.4 L Phosphorus 4.0 Magnesium 2.2 Total Bilirubin 0.3 AST 36 H ALT 105 H Alkaline Phosphatase 74 Total Protein 6.2 Albumin 3.7 D Globulin 2.5 Albumin/Globulin Ratio 1.5 Total IgE Antibody 8 ABG Interpretation ABG results: 03/09/25 03/09/25 03/10/25 07:50 18:22 09:05 ABG pH 7.45 ABG pCO2 39 ABG pO2 289 H ABG HCO3 27 H ABG O2 Saturation 101 H ABG Base Excess 2 VBG pH 7.39 7.49 VBG pCO2 49 37 D VBG pO2 70 H 68 H VBG Base Excess 4 H 5 H 03/11/25 03/12/25 10:09 09:44 ABG pH 7.40 ABG pCO2 44 ABG pO2 80 L D ABG HCO3 27 H ABG O2 Saturation 95 ABG Base Excess 2 VBG pH 7.45 VBG pCO2 40 VBG pO2 39 D VBG Base Excess 4 H Quality Measures Quality Measures none Advance care planning discussed with:: patient Assessment & Plan Assessment Current Active Medications: Generic Name Dose Route Start Last Admin Trade Name Freq PRN Reason Stop Dose Admin Acetaminophen 650 mg 03/09/25 14:41 03/13/25 03:34 Acetaminophen 325 Mg Tablet PO 04/08/25 14:40 650 mg Q6H PRN Administration Mild Pain(1-3) or Fever >100.3 Hydrocodone Bitart/Acetaminophen 1 tab 03/09/25 14:41 Hydrocodone/Apap 5/325 Tablet PO 03/14/25 14:40 Q4HR PRN PAIN SCALE 4-10(Mod-Sev Atorvastatin Calcium 40 mg 03/09/25 21:00 03/13/25 20:22 Atorvastatin Calcium 20 Mg Tablet PO 04/08/25 20:59 40 mg HS SABRINA Administration Clopidogrel Bisulfate 75 mg 03/10/25 09:00 03/14/25 09:17 Clopidogrel Bisulfate 75 Mg Tablet PO 04/09/25 08:59 75 mg QDAY SABRINA Administration Dextrose 25 ml 03/12/25 08:16 Dextrose 50%-Water Inj 50 Ml Syringe IV 04/11/25 08:15 Q15MIN PRN BG 50-70 responsive npo pt Dextrose 50 ml 03/12/25 08:16 Dextrose 50%-Water Inj 50 Ml Syringe IV 04/11/25 08:15 Q15MIN PRN BG <50 OR BG <70 & pt unresponsive Diltiazem HCl 240 mg 03/10/25 09:00 03/14/25 09:17 Diltiazem Cd 120 Mg Capcr PO 04/09/25 08:59 240 mg QDAY SABRINA Administration Gabapentin 100 mg 03/11/25 12:15 03/12/25 11:28 Gabapentin 100 Mg Capsule PO 04/10/25 12:14 Not Given BID SABRINA Glucagon 1 mg 03/12/25 08:16 Glucagon Inj 1 Mg Vial IM Q15MIN PRN BG <70, and no IV access Heparin Sodium (Porcine) 5,000 unit 03/09/25 21:00 03/14/25 09:17 Heparin Sod Inj 5000 Unit/Ml Vial SC 03/23/25 20:59 5,000 unit BID SABRINA Administration Insulin Human Lispro 0 unit 03/12/25 11:30 03/14/25 08:34 Insulin Lispro (Admelog) 1 Unit/0.01 Ml Unit SC 04/11/25 11:29 Not Given AC SABRINA Protocol Ipratropium [place] 0.5 mg 03/10/25 15:00 03/14/25 10:01 Ipratropium Rt 0.5 Mg/ 2.5 Ml Nebu INH 04/09/25 14:59 0.5 mg Q4HRRT SABRINA Administration Lactulose 10 gm 03/14/25 09:00 03/14/25 09:16 Lactulose Syrup 20 Gm/30 Ml Udc PO 04/13/25 08:59 10 gm QDAY SABRINA Administration Protocol Levalbuterol HCl 1.25 mg 03/10/25 15:00 03/14/25 10:01 Levalbuterol Rt 1.25 Mg/0.5 Ml Nebu INH 04/09/25 14:59 1.25 mg Q4HRRT SABRINA Administration Levalbuterol HCl 0.63 mg 03/11/25 22:53 03/13/25 03:20 Levalbuterol Rt 0.63 Mg/3 Ml Nebu INH 04/10/25 22:52 0.63 mg Q8HR PRN Administration WHEEZING Melatonin 3 mg 03/09/25 23:18 03/11/25 00:59 Melatonin 3 Mg Tablet PO 04/09/25 20:59 3 mg HS PRN Administration insomnia Methimazole 5 mg 03/14/25 14:00 Methimazole 5 Mg Tablet PO 04/13/25 13:59 TID SABRINA Methylprednisolone Sodium Succinate 60 mg 03/15/25 09:00 Methylprednisolone Sod Succ 40 Mg Vial IVP 03/22/25 08:59 QDAY SABRINA Ondansetron HCl 4 mg 03/09/25 14:41 Ondansetron Inj 2 Mg/Ml Inj 2 Ml IVP 04/08/25 14:40 Q6H PRN NAUSEA OR VOMITING Protocol Pantoprazole Sodium 40 mg 03/10/25 09:00 03/14/25 09:17 Pantoprazole 40 Mg Tablet PO 04/09/25 08:59 40 mg QDAY SABRINA Administration Breztri (Budesonide, 2 ea 03/13/25 12:00 03/14/25 06:11 Glycopyrrolate And INH 04/12/25 11:59 2 puff Formoterol) BID SABRINA Administration Sennosides 1 tab 03/14/25 09:00 03/14/25 09:17 Senna Tablet PO 04/13/25 08:59 1 tab QDAY SABRINA Administration Protocol Sodium Chloride 3 ml 03/11/25 16:26 Sodium Chloride Rt [place] 0.9% 3 Ml Nebu INH 04/10/25 16:25 PRN PRN SOLN Plan Plan Patient is an 84-year-old female with a past medical history CHF HFpEF 55 to 60% (11/23/2024), systolic dysfunction, moderate PAH 55, moderate to severe with V-max 3.8, ESRD status post peritoneal dialysis dialysis, chronic asthma since early 20s, 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 #Acute hypoxic respiratory failure secondary to asthma exacerbation #Acute on Chronic Asthma exacerbation #Granulomatosis w/ Polyangiitis-formerly known as Antonia's Patient presented to the ED via EMS with a two day history of worsening shortness of breath. Patient's family noticed the patient wheezing while receiving dialysis and called EMS. While in the emergency room department, several episode of spO2 80s on nasal cannula-->transitioned to Bipap. While in ER, increased work of breathing, RR high 30s/40s with abdominal breathing noted, increase in FiO 10-->30. Repeat ABG pH 7.45, pO2 289, HC03 27-->decrease in FIO2 to 20. Daughter at bedside noted an URI several days ago and is concern this may have triggered current exacerbation. 03/11/2025 patient evaluated bedside, in acute respiratory distress, noted to have wheezing evidence of accessory muscles, trouble breathing, respiratory rate in the high 30s, saturating well on 20 L high flow nasal, oxygen, but increased work of breathing. Blood gas was ordered which showed pH and PO2 within normal range, given methylprednisone 125 mg x 1, ordered hour-long nebulization with albuterol, added budesonide nebulization. Consulted ICU/security systems manager Dr. Arellano, who recommended that given patient's diagnosis of Antonia's granulomatosis in the past, and history of longstanding asthma which was relatively well-controlled until recently, noted ANCA and MPO/CT-3 antibodies. Agreed with IV steroids for now, but patient might require increasing doses if acute flare of Antonia's granulomatosis. Also considering possibility of cardiac asthma given, severe aortic stenosis leading to worsening of asthma. Patient might benefit from early aortic valve replacement as soon as clinical condition is stable. Also consider trial of hemodialysis for adequate ultrafiltration as peritoneal dialysis unable to remove adequate fluid. 03/12/2025 patient noted to have respiratory rate of 20 currently on high flow oxygen 20 L satting 96 with FiO2 21; ABG pO2 80 HCO3 27 pH 7.40 pCO2 44. Blood culture negative after 48 hours, MRSA screen negative, and Peritoneal Dialysis Culture pending. 03/13/2025 patient noted to have respiratory rate of 20 currently weaning high flow oxygen to 15 L satting between 95-100 FiO2 21 in the morning. Respiratory rate 18 with 13 L high flow oxygen satting 92 FiO2 21 in the afternoon. 03/14/2025 patient noted to have respiratory rate <20 currently weaning to 5 L oxygen satting between 93-97 FiO2 21 in the morning. Respiratory rate <20 weaned to 3L oxygen satting 98 FiO2 in the afternoon. Plan: -Continue NC, currently at 5 L/min, attempt to wean down oxygen. -Methylprednisone 60 mg IV Qday -Continue Levalbuterol 1.25 mg INH Q4HRRT, Ipratropium 0.5 INH Q4HRRT -Discontinued Budenoside BIDRT -Azithromycin Course Completed (03/09/2025-03/12/2025) & Ceftriaxone 03/10/2025-03/11/2025 -Consider ANCA levels/ESR to determine possible exacerbation as relapses with Antonia are common, specially with reported coffee ground emesis #Concern for Hyperthyroidism Noted suppressed TSH and elevated T4 levels, limited utility of thyroid function test during acute illness and hospitalization. the patient will eventually require repeat thyroid function test once discharged to confirm thyroid disorders. Also patient has longstanding history of MAT likely secondary to pulmonary disorder, less likely influenced by thyroid. -Thyroid US: bilateral vascular thyroid nodules, consider fine needle aspiration -TSI/TSH-R Antibodies and TPO antibodies pending - Repeat thyroid function testing in 3 to 4 weeks after discharge, and follow-up with it integration architect -Start methimazole 5 mg PO TID #Acute on Chronic Congestive Heart Failure #CHF HFpEF 60-65% (03/12/2025) #Mild Pulmonary Vascular Congestion #Moderate to Severe Aortic Stenosis, AV vmax 3.8 m #Severe Mitral Regurgitation #Moderate PAH, 55 mmHg Patient likely acute on chronic congestive heart failure this, may only be mild exacerbation as pulmonary vascular congestion was less prominent as compared to other episode. Current BNP of 345 vs previous CHF exacerbation of 1691.Acute on chronic CHF exacerbation likely triggered by asthma exacerbation. Diagnostics: Echo (03/12/2025): Normal LV size and function. EF 60-65%. Diastolic dysfunction present but cannot be graded due to arrhythymia.Normal RV size and function. Estimated RVSP moderately elevated RVSP 50-55 mm hg.Moderate to Severe . AV vmax 3.8 m/s, Mean PG 38 mm hg. LATRICE 0.5 sq cm. -BNP 345 -Chest x-ray (03/10/2025): Mild chronic heart failure pattern, prominent vascular congestion-overall mild chornic heart failure Plan: -Lasix 40 mg IV X 1 (03/10/2025) -Strict Ins and Outs -Fluid Restrictions 1800 -Oxygen support -Cardiology consult Dr. Campa, recommend changing to hemodialysis from peritoneal dialysis #MAT #Atrial Fibrillation, less likely #EKG Abnormalities Patient has a past medical history of previous reported Atrial Fibrillation, per daughter, was told it was less likely atrial fibrillation, decision was made for no Eliquis and only Plavix on board for history of CVA. This EKG read A.fib w/ rvr but not all leads irregular and some noted with possible p waves. r waves present, no deep q waves noted. V1/V2 possible t wave abnormalities. 03/14/2025 EKG ordered, noted HR 100 likely MAT, likely secondary to levalbuterol. Consider decreasing Levalbuterol doses as patient's work of breathing improves. Plan -Diltiazem 240 mg PO scheduled -AVOID BETA BLOCKERS GIVEN ASTHMA EXACERBATION -Cardiology consult completed, possible uptration to Diltiazem 360 mg PO QD if rate is not well controlled, anti-coagulation not required #ESRD on peritoneal dialysis #ESRD secondary to Granulomatosis Per patient history, follows Dr. Amezcua and Dr. Coley. Patient develoepd ESRD several years ago likely secondary to Granulomatosis. Peritoneal dialysis, daily. Consult nephrology for scheduled daily dialysis. Plan -Family would like to proceed with HD, NPO after-night, and ordered added. -Strict in and outs. -Peritoneal dialysis -Avoid nephrotoxins, consider renal dosing -Nephrology Consulted, Dr. Amezcua, appreciate recommendations. -Peritoneal fluid culture: no growth #Mild Transaminitis Patient's AST remaining elevated; ALT trending upwards Pertinent labs: 03/09 AST/ALT 46/46; 03/11: 37/63; 03/14: 36/105 Plan: Monitor and trend liver enzymes if concern, consider hepatitis panel #Mild Troponemia #NSTEMI, type II likely demand ischemia Mild elevation in Troponin likely in the setting of demand ischemia from asthma exacerbation. Denied chest pain, palpitations, or chest pressure. No st elevation noted. Plan -Repeat Troponin 03/10 peaked at 0.141. #Single Episode of Hematemsis #Normocytic Normochromic Anemia Pertinent lab values 03/12/25: MCV 87 Hgb 10.1 RBC 3.38 Hct 29.5; 03/13/25: MCV 89 Hgb 10.5 Hct 30.7 RBC 3.46 Given past medical history of GERD, consider gastric ulcers-given reported coffee ground emesis vs Granulomatosis flare vs lower GI bleed. Plan: -Monitor hgb >7 goal -Consider occult blood AM, if worsening drop -Consider gastroenterology consult with Dr. Abraham, if repeat episodes of coffee ground emesis #History of CVA Past medical history of CVA Plan -plavix given coffee ground emesis. #GERD #Gastritis (?) Per the patient's daughter, the patient recently experienced coffee ground emesis w/ history of GERD. Plan: Continue Pantoprazole 40 mg PO QD-->Transition to Pantoprazole 40 mg IV BID (AM) #history of Fracture Neck of Right Femur Patient underwent surgical repair of closed right hip neck fracture on 12/01/[address] Lee Plan: Monitor for possible rehabilitation DVT prophylaxis: No DVT prophylaxis in setting of suspected GI bleed and anemia GI prophylaxis: IV Protonix qday Diet: NPO after midnight Lines: Peripheral IV Code status: Full code Case discussed with attending physician Dr. Martinez and resident Dr. Angela Sena MS-4 - The patient's plan was discussed with attending Dr. Juan Miller MD PGY2 Internal Medicine Attending Provider Attestation/Addendum 84-year-old female with multiple comorbidities including heart failure with preserved EF with EF 55-60%, severe aortic stenosis with V-max 3.8, pulmonary hypertension, granulomatosis with polyangiitis with subsequent end-stage renal disease on peritoneal dialysis history of ischemic CVA with right-sided hemiparesis, hypertension, hyperlipidemia presented to the ER with shortness of breath found to have acute hypoxic respiratory failure multifactorial including asthma exacerbation and fluid overload state. Initially, patient did require BiPAP and advised to continue IV steroids, IV antibiotic therapy and plan for peritoneal dialysis. Furthermore, patient also has moderate to severe aortic stenosis with pulmonary arterial hypertension and plan to consult cardiology. Overnight, patient weaned off high flow nasal cannula to 10 L OxyMask. In addition, plan to continue IV steroids, IV antibiotic and peritoneal dialysis. Appreciate cardiology, pulmonary and nephrology input. I reviewed above note and agree with findings and plans. I have also personally examined the patient with medicine team and went over assessment and plan with medical team including quality internship and resident physician.
--- NOTE | 2025-03-14 12:18 | ESPR_ITS ---
<Statement entered by Jori Olivares MD - 03/14/25 18:09> I have personally seen and examined the patient separately on the above date of service and discussed the plan of care with the resident. I reviewed the resident Dr. Kevin Sullivan consultation progress note and agree with the resident findings and plan in the note above and have also edited the documentation to reflect my findings and plan. 03/13/2025- I had a long discussion with the patient as well as the daughter on the phone later for more than 30 minutes regarding patient's present clinical status and workup done till now as well as the treatment plan. Discussed with the patient and that she wanted her son and daughter to make all the decisions. Informed the daughter about the findings from the pulmonary consultation and the patient has still fluid overload with interstitial edema and recommended to do hemodialysis to help with the fluid overload state as a PD because he decreases after few years. Discussed in detail about the option to start hemodialysis temporarily with a tunneled dialysis catheter for few months until she gets better and if possible do further cardiac workup at that point of time when she is more euvolemic. Daughter and the rest of the family are not interested in hemodialysis as they did not have his good experience or outcome for their father (patient's ). Recommended to discuss with the chargeback analyst If patient can be restarted on peritoneal dialysis after having temporary hemodialysis tunneled catheter was for the next 2 to 3 months which will help her get better and complete all the required preprocedure workup to evaluate if she is an ideal candidate for TAVR. Also the daughter expressed that she wanted her mother to be home and not have any invasive procedures as they are expecting their other brother to come from out of the country and see the patient. Discussed with the daughter who has explained to me that her mother is tired at the present point of time and has expressed that she does not want to do any invasive procedures at the present moment and has been losing interest to continue to survive after she lost her close relative in the past few weeks. Patient does appear to have lost a lot of motivation over the last couple of months after the fall and left femoral repair and right humerus fracture along with the multiple admissions. Daughter understands to discuss further and will make a decision about hemodialysis temporary versus for single-vessel procedures. 03/14/2025-patient breathing still did not improve much and still using extreme assist. Daughter feels that she is doing worse today. She did speak to her chargeback analyst Dr. Leo who recommended to start hemodialysis with tunneled dialysis catheter. Family discussed among themselves and are interested in pursuing the tunneled hemodialysis catheter. Primary team has been informed and they will plan for hemodialysis cath placement tomorrow. Patient daughter again expressed that they do not want to do any invasive procedures apart from the doing the tunneled dialysis catheter with dialysis for now. They are going to have family get together from March 25 to April 04 with all the family and then would want to pursue any other workup after that time if the patient is still interested as she is very demotivated at the present point of time. Jori Olivares M.D. Interventional Cardiology Documentation for date of: 03/14/25 Subjective Subjective Interval history: Patient seen and examined at bedside. Patient continues to be short of breath, using accessory muscles, and primary team did consult pulmonary. Now on 2L NC. Pulmonary consultation was done with Dr. 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 On high-dose steroids along with nebulizations. Also reviewed her xray and feel there is fluid overload also and recommended to change to HD as PD does not work well after few years. Paper Final Inspector at [facility] failed to find extrapulmonary causes of dyspnea and was discovered to have . GPA was in remission for many years after initial diagnosis in [place] treated with prednisone and methotrexate 25 years ago , renal disease manifested later [facility] biopsy was inconclusive and [place] [facility] consistent with GPA, started on rituximab and steroid used but progressed to ESRD over time around 2019 Still continues to be on peritoneal dialysis and was recommended hemodialysis previously by me also during last admission but daughter, sons who are the caregivers were not ready for it. We also discussed during the present admission. Primary team to speak to the family, and we will also be speaking to the family members. Patient was supposed to have a left and right heart cardiac catheterization given her history of severe but cannot be performed at the present moment because of her respiratory status. Other vitals are stable, creatinine at 6.7, and cracles appreciated throughout the lung mason. Will continue to monitor closely and fluid management as per nephrology as patient on dialysis. Abnormal thyroid function tests and primary team ordered further lab tests; ultrasound of the thyroid revealed bilateral vascular solid thyroid nodules, primary team may consider ultrasound-guided fine-needle aspiration of both nodules. On 03/13/2025 Dr. Olivares had about 30 minutes discussion with the patient's daughter regarding starting the patient on HD, at least for couple of months, and she reported she would decide about it with further discussion with other family members and decide about HD. Exam Vital Signs Temp Pulse Resp BP Pulse Ox O2 Del Method O2 Flow Rate 98.1 F 106 H 20 136/95 H 98 Nasal Cannula 4 03/14/25 12:00 03/14/25 12:00 03/14/25 12:00 03/14/25 12:00 03/14/25 12:00 03/14/25 12:00 03/14/25 12:00 FiO2 21 03/14/25 12:00 Narrative Exam General: Alert and oriented x3. In no acute distress. Eyes: Pupils are equal and reactive to light bilaterally. HEENT: Atraumatic, normocephalic. No JVD noted. Mucosa moist. Cardiovascular: Normal S1 and soft S2,. Tachycardic, 3/6 ejection systolic murmur heard at aortic area, 3/6 holosystolic murmur heard on the mitral area and parasternal area, trace peripheral pitting edema noted. Respiratory: Mild respiratory distress on oxygen via nasal cannula, use of accessory muscles appreciated, bilateral air entry present, wheezing noted. Significant crackles throughout the lung mason. Abdomen: Soft, nontender, nondistended. Skin: No rash. Warm to touch. Musculoskeletal: No gross injuries. Able to move all 4 extremities. Neuro: Alert and oriented x3. No focal neuro deficits. Psych: mildly depressed. Objective Labs 03/14/25 05:53 03/14/25 05:53 Labs: Laboratory Results - last 24 hr 03/12/25 03/14/25 09:51 05:53 WBC 14.8 H RBC 3.11 L Hgb 9.4 L Hct 26.6 L MCV 86 MCH 30.2 MCHC 35.3 RDW Std Deviation 48.0 H Plt Count 282 Neut % (Auto) 89 H Lymph % (Auto) 4 L Grand % (Auto) 6 Eos % (Auto) 0 Baso % (Auto) 0 Neut # (Auto) 13.1 H Lymph # (Auto) 0.5 L Grand # (Auto) 0.9 H Eos # (Auto) 0.0 Baso # (Auto) 0.0 Immature Gran # (Auto) 0.23 H Absolute Nucleated RBC 0.00 Immature Gran % 2 H Nucleated RBC % 0 Sodium 133 L Potassium 3.5 Chloride 90 L Carbon Dioxide 27.3 Anion Gap 16 BUN 76 H Creatinine 6.7 H* Estim Creat Clear Calc 4.6 L eGFR 6 L* BUN/Creatinine Ratio 11 L Glucose 154 H Calculated Osmolality 291 Calcium 8.2 L Corrected Calcium 8.4 L Phosphorus 4.0 Magnesium 2.2 Total Bilirubin 0.3 AST 36 H ALT 105 H Alkaline Phosphatase 74 Total Protein 6.2 Albumin 3.7 D Globulin 2.5 Albumin/Globulin Ratio 1.5 Total IgE Antibody 8 ABG Interpretation ABG results: 03/09/25 03/09/25 03/10/25 07:50 18:22 09:05 ABG pH 7.45 ABG pCO2 39 ABG pO2 289 H ABG HCO3 27 H ABG O2 Saturation 101 H ABG Base Excess 2 VBG pH 7.39 7.49 VBG pCO2 49 37 D VBG pO2 70 H 68 H VBG Base Excess 4 H 5 H 03/11/25 03/12/25 10:09 09:44 ABG pH 7.40 ABG pCO2 44 ABG pO2 80 L D ABG HCO3 27 H ABG O2 Saturation 95 ABG Base Excess 2 VBG pH 7.45 VBG pCO2 40 VBG pO2 39 D VBG Base Excess 4 H Quality Measures Quality Measures none Advance care planning discussed with:: patient and child Assessment & Plan Assessment Current Active Medications: Generic Name Dose Route Start Last Admin Trade Name Freq PRN Reason Stop Dose Admin Acetaminophen 650 mg 03/09/25 14:41 03/13/25 03:34 Acetaminophen 325 Mg Tablet PO 04/08/25 14:40 650 mg Q6H PRN Administration Mild Pain(1-3) or Fever >100.3 Hydrocodone Bitart/Acetaminophen 1 tab 03/09/25 14:41 Hydrocodone/Apap 5/325 Tablet PO 03/14/25 14:40 Q4HR PRN PAIN SCALE 4-10(Mod-Sev Atorvastatin Calcium 40 mg 03/09/25 21:00 03/13/25 20:22 Atorvastatin Calcium 20 Mg Tablet PO 04/08/25 20:59 40 mg HS SABRINA Administration Clopidogrel Bisulfate 75 mg 03/10/25 09:00 03/14/25 09:17 Clopidogrel Bisulfate 75 Mg Tablet PO 04/09/25 08:59 75 mg QDAY SABRINA Administration Dextrose 25 ml 03/12/25 08:16 Dextrose 50%-Water Inj 50 Ml Syringe IV 04/11/25 08:15 Q15MIN PRN BG 50-70 responsive npo pt Dextrose 50 ml 03/12/25 08:16 Dextrose 50%-Water Inj 50 Ml Syringe IV 04/11/25 08:15 Q15MIN PRN BG <50 OR BG <70 & pt unresponsive Diltiazem HCl 240 mg 03/10/25 09:00 03/14/25 09:17 Diltiazem Cd 120 Mg Capcr PO 04/09/25 08:59 240 mg QDAY SABRINA Administration Gabapentin 100 mg 03/11/25 12:15 03/12/25 11:28 Gabapentin 100 Mg Capsule PO 04/10/25 12:14 Not Given BID SABRINA Glucagon 1 mg 03/12/25 08:16 Glucagon Inj 1 Mg Vial IM Q15MIN PRN BG <70, and no IV access Heparin Sodium (Porcine) 5,000 unit 03/09/25 21:00 03/14/25 09:17 Heparin Sod Inj 5000 Unit/Ml Vial SC 03/23/25 20:59 5,000 unit BID SABRINA Administration Insulin Human Lispro 0 unit 03/12/25 11:30 03/14/25 11:44 Insulin Lispro (Admelog) 1 Unit/0.01 Ml Unit SC 04/11/25 11:29 Not Given AC SABRINA Protocol Ipratropium Sterling 0.5 mg 03/10/25 15:00 03/14/25 10:01 Ipratropium Rt 0.5 Mg/ 2.5 Ml Nebu INH 04/09/25 14:59 0.5 mg Q4HRRT SABRINA Administration Lactulose 10 gm 03/14/25 09:00 03/14/25 09:16 Lactulose Syrup 20 Gm/30 Ml Udc PO 04/13/25 08:59 10 gm QDAY SABRINA Administration Protocol Levalbuterol HCl 1.25 mg 03/10/25 15:00 03/14/25 10:01 Levalbuterol Rt 1.25 Mg/0.5 Ml Nebu INH 04/09/25 14:59 1.25 mg Q4HRRT SABRINA Administration Levalbuterol HCl 0.63 mg 03/11/25 22:53 03/13/25 03:20 Levalbuterol Rt 0.63 Mg/3 Ml Nebu INH 04/10/25 22:52 0.63 mg Q8HR PRN Administration WHEEZING Melatonin 3 mg 03/09/25 23:18 03/11/25 00:59 Melatonin 3 Mg Tablet PO 04/09/25 20:59 3 mg HS PRN Administration insomnia Methimazole 5 mg 03/14/25 14:00 Methimazole 5 Mg Tablet PO 04/13/25 13:59 TID SABRINA Methylprednisolone Sodium Succinate 60 mg 03/15/25 09:00 Methylprednisolone Sod Succ 40 Mg Vial IVP 03/22/25 08:59 QDAY SABRINA Ondansetron HCl 4 mg 03/09/25 14:41 Ondansetron Inj 2 Mg/Ml Inj 2 Ml IVP 04/08/25 14:40 Q6H PRN NAUSEA OR VOMITING Protocol Pantoprazole Sodium 40 mg 03/10/25 09:00 03/14/25 09:17 Pantoprazole 40 Mg Tablet PO 04/09/25 08:59 40 mg QDAY SABRINA Administration Breztri (Budesonide, 2 ea 03/13/25 12:00 03/14/25 06:11 Glycopyrrolate And INH 04/12/25 11:59 2 puff Formoterol) BID SABRINA Administration Sennosides 1 tab 03/14/25 09:00 03/14/25 09:17 Senna Tablet PO 04/13/25 08:59 1 tab QDAY SABRINA Administration Protocol Sodium Chloride 3 ml 03/11/25 16:26 Sodium Chloride Rt Annika 0.9% 3 Ml Nebu INH 04/10/25 16:25 PRN PRN SOLN Plan A 84-year-old female with a past medical history of severe aortic stenosis with a valve area of 0.5 cm?, moderate MR and TR, moderate PAH, preserved EF with diastolic dysfunction, end-stage renal disease on peritoneal dialysis for the last 4 to 5 years, Antonia's granulomatosis diagnosed 25 years ago, chronic severe asthma since her early 20s, history of multifocal atrial tachycardia, 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 1. Acute hypoxic respiratory failure mostly secondary to fluid overload 2/2 failing PD, and 2. Acute asthma exacerbation 3. Severe aortic stenosis with a valve area less than 0.5 cm? 4. End-stage renal disease on peritoneal dialysis for past 4 to 5 years mostly secondary to Antonia's granulomatosis 5. Abnormal thyroid function tests 6. Multifocal atrial tachycardia 7. Valvular heart disease with severe aortic stenosis, moderate MR and TR 8. Moderate pulmonary artery pretension with an RVSP of 55 mmHg 9. Chronic diastolic congestive heart failure 10. 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 Patient started on high-dose steroids with Solu- Medrol 60 mg every every 8 hours decreased to every 12 hours, along with nebulizations and inhalers. Still continues to be on oxygen and now use of any accessory muscles appreciated. Combination of upper respiratory tract symptoms along with recent emotional stress. Also on IV antibiotics. Patient has been tachycardic On arrival and EKG reviewed. EKG shows irregularly irregular rhythm but most of the time is 100 to 130 bpm which is typical of multifocal atrial tachycardia. Has irregularly irregular rhythm with varying PP and VA intervals. 3 distinct P wave morphologies are also seen in the lead II. Also patient has underlying lung disease which could contribute's significantly for the multifocal atrial tachycardia Continue rate control with diltiazem 240 mg once daily as no beta-pratik can be given because of the as above. Will uptitrate the diltiazem to 360 mg once daily and if rate is not well-controlled. No anticoagulation required. Patient is mildly elevated troponins at 0.34 and 0.145. Troponin elevation mostly secondary to NSTEMI type II in the setting of supply/demand mismatch. Patient denies any Chest pain or chest pressure at the present moment. EKG showed marked without any acute ST-T changes history of ischemia. Patient is scheduled to have left and right heart cardiac catheterization on Wednesday as outpatient but cannot be done because of her acute hypoxic respiratory failure at the present point of time. Continue Plavix for now and high intensity statin. No beta-pratik because of asthma. No heparin drip required. Patient does have severe as noted above with a valve area of less than 0.5 cm?. Patient also has moderate MR and TR with moderate PAH noted on the previous echocardiogram in November 2024. Workup started as outpatient for the severe and as noted previously was scheduled for the left heart cardiac catheterization and right heart cardiac catheterization which will need to be postponed for now given her acute hypoxic respiratory failure. Will continue further workup of the severe as outpatient. 03/14/2025: Patient seen and examined at bedside. Patient continues to be short of breath, using accessory muscles, and primary team did consult pulmonary. Now on 2L NC. Pulmonary consultation was done with Dr. 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 On high-dose steroids along with nebulizations. Also reviewed her xray and feel there is fluid overload also and recommended to change to HD as PD does not work well after few years. Paper Final Inspector at [facility] failed to find extrapulmonary causes of dyspnea and was discovered to have . GPA was in remission for many years after initial diagnosis in [place] treated with prednisone and methotrexate 25 years ago , renal disease manifested later [facility] biopsy was inconclusive and [place] [facility] [place] findings consistent with GPA, started on rituximab and steroid used but progressed to ESRD over time around 2019 Still continues to be on peritoneal dialysis and was recommended hemodialysis previously by me also during last admission but daughter, sons who are the caregivers were not ready for it. We also discussed during the present admission. Primary team to speak to the family, and we will also be speaking to the family members. Patient was supposed to have a left and right heart cardiac catheterization given her history of severe but cannot be performed at the present moment because of her respiratory status. Other vitals are stable, creatinine at 6.7, and cracles appreciated throughout the lung mason. Will continue to monitor closely and fluid management as per nephrology as patient on dialysis. Abnormal thyroid function tests and primary team ordered further lab tests; ultrasound of the thyroid revealed bilateral vascular solid thyroid nodules, primary team may consider ultrasound-guided fine-needle aspiration of both nodules. On 03/13/2025 Dr. Olivares had about 30 minutes discussion with the patient's daughter regarding starting the patient on HD, at least for couple of months, and she reported she would decide about it with further discussion with other family members and decide about HD. Continue with Diltiazem 240mg daily for rate control. Management of rest of the medical conditions as per primary team and other consultants. Thank you for the consult and allowing me to participate in the care of the patient. Cardiology will continue to follow. The patient's management plan was discussed with my attending physician MD Kevin Murcia MD, PGY3
--- NOTE | 2025-03-14 14:10 | ESPR_ITS ---
Documentation for date of: 03/14/25 Subjective Subjective Interval history: Overnight events: No acute events overnight Patient was seen and examined at bedside. AM vitals and labs reviewed. BUN 76, creatinine 6.7, and GFR 6. Peritoneal dialysis was started yesterday at 1930 and ended today at 0700 with an effluent volume of 264 mL. Ins/outs 840/0. Patient was initially resting without any acute distress. Work of breathing did not seem as severe as compared to yesterday. However, as the conversation continued the patient became more short of breath and requested her inhaler. When her inhaler was not present the patient became increasingly anxious. Nursing staff was notified. Discussed events with primary team, who found out that this patient was taking her home Ventolin throughout her stay. Review of systems otherwise negative except for what is mentioned above. Exam Vital Signs Temp Pulse Resp BP Pulse Ox O2 Del Method O2 Flow Rate 98.1 F 106 H 20 136/95 H 98 Nasal Cannula 4 03/14/25 12:00 03/14/25 12:00 03/14/25 12:00 03/14/25 12:00 03/14/25 12:00 03/14/25 12:00 03/14/25 12:00 FiO2 21 03/14/25 12:00 Narrative Exam Physical Exam: General: Alert, no acute distress initially. Skin: Warm, dry, intact, no obvious rash. Head: Normocephalic, atraumatic. Eye: Normal conjunctiva, PERRL. Respiratory: Respirations initally unlabored on 6L NC. Became labored after talking with accessory muscle use appreciated. Objective Labs 03/17/25 05:16 03/17/25 05:16 Labs: Laboratory Results - last 24 hr 03/12/25 03/14/25 09:51 05:53 WBC 14.8 H RBC 3.11 L Hgb 9.4 L Hct 26.6 L MCV 86 MCH 30.2 MCHC 35.3 RDW Std Deviation 48.0 H Plt Count 282 Neut % (Auto) 89 H Lymph % (Auto) 4 L [place] % (Auto) 6 Eos % (Auto) 0 Baso % (Auto) 0 Neut # (Auto) 13.1 H Lymph # (Auto) 0.5 L [place] # (Auto) 0.9 H Eos # (Auto) 0.0 Baso # (Auto) 0.0 Immature Gran # (Auto) 0.23 H Absolute Nucleated RBC 0.00 Immature Gran % 2 H Nucleated RBC % 0 Sodium 133 L Potassium 3.5 Chloride 90 L Carbon Dioxide 27.3 Anion Gap 16 BUN 76 H Creatinine 6.7 H* Estim Creat Clear Calc 4.6 L eGFR 6 L* BUN/Creatinine Ratio 11 L Glucose 154 H Calculated Osmolality 291 Calcium 8.2 L Corrected Calcium 8.4 L Phosphorus 4.0 Magnesium 2.2 Total Bilirubin 0.3 AST 36 H ALT 105 H Alkaline Phosphatase 74 Total Protein 6.2 Albumin 3.7 D Globulin 2.5 Albumin/Globulin Ratio 1.5 Total IgE Antibody 8 ABG Interpretation ABG results: 03/09/25 03/09/25 03/10/25 07:50 18:22 09:05 ABG pH 7.45 ABG pCO2 39 ABG pO2 289 H ABG HCO3 27 H ABG O2 Saturation 101 H ABG Base Excess 2 VBG pH 7.39 7.49 VBG pCO2 49 37 D VBG pO2 70 H 68 H VBG Base Excess 4 H 5 H 03/11/25 03/12/25 10:09 09:44 ABG pH 7.40 ABG pCO2 44 ABG pO2 80 L D ABG HCO3 27 H ABG O2 Saturation 95 ABG Base Excess 2 VBG pH 7.45 VBG pCO2 40 VBG pO2 39 D VBG Base Excess 4 H Quality Measures Quality Measures none Advance care planning discussed with:: patient Assessment & Plan Assessment Current Active Medications: Generic Name Dose Route Start Last Admin Trade Name Freq PRN Reason Stop Dose Admin Acetaminophen 650 mg 03/09/25 14:41 03/13/25 03:34 Acetaminophen 325 Mg Tablet PO 04/08/25 14:40 650 mg Q6H PRN Administration Mild Pain(1-3) or Fever >100.3 Hydrocodone Bitart/Acetaminophen 1 tab 03/09/25 14:41 Hydrocodone/Apap 5/325 Tablet PO 03/14/25 14:40 Q4HR PRN PAIN SCALE 4-10(Mod-Sev Atorvastatin Calcium 40 mg 03/09/25 21:00 03/13/25 20:22 Atorvastatin Calcium 20 Mg Tablet PO 04/08/25 20:59 40 mg HS SABRINA Administration Clopidogrel Bisulfate 75 mg 03/10/25 09:00 03/14/25 09:17 Clopidogrel Bisulfate 75 Mg Tablet PO 04/09/25 08:59 75 mg QDAY SABRINA Administration Dextrose 25 ml 03/12/25 08:16 Dextrose 50%-Water Inj 50 Ml Syringe IV 04/11/25 08:15 Q15MIN PRN BG 50-70 responsive npo pt Dextrose 50 ml 03/12/25 08:16 Dextrose 50%-Water Inj 50 Ml Syringe IV 04/11/25 08:15 Q15MIN PRN BG <50 OR BG <70 & pt unresponsive Diltiazem HCl 240 mg 03/10/25 09:00 03/14/25 09:17 Diltiazem Cd 120 Mg Capcr PO 04/09/25 08:59 240 mg QDAY SABRINA Administration Gabapentin 100 mg 03/11/25 12:15 03/12/25 11:28 Gabapentin 100 Mg Capsule PO 04/10/25 12:14 Not Given BID SABRINA Glucagon 1 mg 03/12/25 08:16 Glucagon Inj 1 Mg Vial IM Q15MIN PRN BG <70, and no IV access Heparin Sodium (Porcine) 5,000 unit 03/09/25 21:00 03/14/25 09:17 Heparin Sod Inj 5000 Unit/Ml Vial SC 03/23/25 20:59 5,000 unit BID SABRINA Administration Insulin Human Lispro 0 unit 03/12/25 11:30 03/14/25 11:44 Insulin Lispro (Admelog) 1 Unit/0.01 Ml Unit SC 04/11/25 11:29 Not Given AC SABRINA Protocol Ipratropium [place] 0.5 mg 03/10/25 15:00 03/14/25 10:01 Ipratropium Rt 0.5 Mg/ 2.5 Ml Nebu INH 04/09/25 14:59 0.5 mg Q4HRRT SABRINA Administration Lactulose 10 gm 03/14/25 09:00 03/14/25 09:16 Lactulose Syrup 20 Gm/30 Ml Udc PO 04/13/25 08:59 10 gm QDAY SABRINA Administration Protocol Levalbuterol HCl 1.25 mg 03/10/25 15:00 03/14/25 10:01 Levalbuterol Rt 1.25 Mg/0.5 Ml Nebu INH 04/09/25 14:59 1.25 mg Q4HRRT SABRINA Administration Levalbuterol HCl 0.63 mg 03/11/25 22:53 03/13/25 03:20 Levalbuterol Rt 0.63 Mg/3 Ml Nebu INH 04/10/25 22:52 0.63 mg Q8HR PRN Administration WHEEZING Melatonin 3 mg 03/09/25 23:18 03/11/25 00:59 Melatonin 3 Mg Tablet PO 04/09/25 20:59 3 mg HS PRN Administration insomnia Methimazole 5 mg 03/14/25 14:00 Methimazole 5 Mg Tablet PO 04/13/25 13:59 TID SABRINA Methylprednisolone Sodium Succinate 60 mg 03/15/25 09:00 Methylprednisolone Sod Succ 40 Mg Vial IVP 03/22/25 08:59 QDAY SABRINA Ondansetron HCl 4 mg 03/09/25 14:41 Ondansetron Inj 2 Mg/Ml Inj 2 Ml IVP 04/08/25 14:40 Q6H PRN NAUSEA OR VOMITING Protocol Pantoprazole Sodium 40 mg 03/10/25 09:00 03/14/25 09:17 Pantoprazole 40 Mg Tablet PO 04/09/25 08:59 40 mg QDAY SABRINA Administration Breztri (Budesonide, 2 ea 03/13/25 12:00 03/14/25 06:11 Glycopyrrolate And INH 04/12/25 11:59 2 puff Formoterol) BID SABRINA Administration Sennosides 1 tab 03/14/25 09:00 03/14/25 09:17 Senna Tablet PO 04/13/25 08:59 1 tab QDAY SABRINA Administration Protocol Sodium Chloride 3 ml 03/11/25 16:26 Sodium Chloride Rt Annika 0.9% 3 Ml Nebu INH 04/10/25 16:25 PRN PRN SOLN Plan Mrs. 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 Nephrology was consulted for management of her peritoneal dialysis. #ESRD on Peritoneal Dialysis #ESRD 2/2 Donna's Granulomatosis - Continue nightly peritoneal dialysis - Patient's daughter discussed peritoneal dialysis timing with Dr. Amezcua. - Will hold off on hemodialysis for now given that the patient is not fluid overloaded. - Continue to monitor renal function. - Avoid IV hydration given past history of fluid overload and CHF. - Avoid nephrotoxic drugs and renally adjust medications. - Nephrology will continue to follow. Patient was discussed with the Nephrology attending, Dr. Amezcua. Thank you for allowing us to participate in the care of this patient. Rogelio Asher, PGY-1 Attending Provider Attestation/Addendum Agree with assessment and plan and finding of resident. Temo Amezcua MD
--- NOTE | 2025-03-14 14:56 | PC.SS ---
Rounding Note: Patient on 4L oxygen. Patient receiving IV antibiotics. D/C within 2 days.
[2025-03-14] MEDS: ACETAMINOPHEN 325 MG TABLET 650 MG PO (15:21)
--- NOTE | 2025-03-14 16:09 | EKG_ITS ---
[facility] Test Date: 2025-03-14 Pat Name: WHIT TITUS [facility] Pattern Hanger: NANNETTE : 1940 Requested By: Jenelle Miller Order Number: [id number] Reading MD: Jenelle Miller Measurements Intervals [place] Rate: 100 P: [place]: QRS: -48 QRSD: 128 T: 9 QT: 351 QTc: 453 Interpretive Statements ATRIAL FIBRILLATION WITH RAPID VENTRICULAR RESPONSE RIGHT BUNDLE BRANCH BLOCK LEFT ANTERIOR FASCICULAR BLOCK VOLTAGE CRITERIA FOR LVH POSSIBLE ANTERIOR MYOCARDIAL INFARCTION , PROBABLY OLD Compared to ECG 03/09/2025 08:05:24 No significant changes /store/[id number].pdf
[2025-03-14] MEDS: LEVALBUTEROL RT 0.63 MG/3 ML NEBU INH (16:21)
--- NOTE | 2025-03-14 16:25 | PC.SS ---
Assessment information obtained from patient?s daughter, Velia Patel .? Patient resides at home with daughter.? Patient utilizes a wheelchair to assist with mobility.? Patient does not possess home oxygen.? Patient currently on 20L high flow oxygen.? Patient?s surrogate medical decision maker is daughter, Velia Patel.? Patient?s PCP is Neal Simms.? Patient?s load dispatcher local is Dr. Leo.? Patient participates with peritoneal dialysis.? Patient?s instructor looping is Dr. Campa.? Patient utilizes [facility] for medication services.? If home health is recommended, [facility]; preferred agency.? If home health is recommended daughter requesting only physical therapy services.? If oxygen required at time of discharge home health care social worker to submit referral.? No preferred vendor identified.? Plan is for the patient to return home.? ?Family will provide transportation on behalf of the patient.? ??No further discharge needs identified by the patient?s daughter.? ?No further intervention required at this time, home health care social worker will be available to address any further concerns.? Next of Kin: Velia Patel D/C Plan: Home
[2025-03-14] MEDS: POTASSIUM CHLORIDE 10% 20 MEQ/15 ML UDC 40 MEQ PO (17:41)
[2025-03-14] MEDS: Magnesium Sulfate 2 GM Ivpb 2 GM/50 ML BAG IV (17:42)
[2025-03-14] MEDS: ATORVASTATIN CALCIUM 20 MG TABLET 40 MG PO (21:06)
[2025-03-14] MEDS: METHIMAZOLE 5 MG TABLET PO (21:07)
[2025-03-15] VITALS (38 sets, daily range): BP systolic 115–192; BP diastolic 48–121; PULSE 65–134; RESP 16–31; TEMP 36.1–36.8; O2SAT 93–100
[2025-03-15] MEDS: LEVALBUTEROL RT 1.25 MG/0.5 ML NEBU INH ×6 (02:00→21:31)
[2025-03-15] MEDS: IPRATROPIUM RT 0.5 MG/ 2.5 ML NEBU INH ×6 (02:00→21:31)
--- NOTE | 2025-03-15 02:07 | EKG_ITS ---
[facility] Test Date: 2025-03-15 Pat Name: WHIT TITUS [facility] Narrow Gauge Brakeman: ECOBN1 : 1940 Requested By: Jesus Alberto Mckee Order Number: [id number] Reading MD: Jesus Alberto Mckee Measurements Intervals [place] Rate: 106 P: 46 [place]: 151 QRS: -48 QRSD: 114 T: 32 QT: 331 QTc: 441 Interpretive Statements SINUS TACHYCARDIA WITH FREQUENT SUPRAVENTRICULAR PREMATURE COMPLEXES S1-S2-S3 PATTERN, CONSISTENT WITH PULMONARY DISEASE, RVH, OR NORMAL VARIANT INCOMPLETE RIGHT BUNDLE BRANCH BLOCK LEFT ANTERIOR FASCICULAR BLOCK VOLTAGE CRITERIA FOR LVH POSSIBLE ANTERIOR MYOCARDIAL INFARCTION , OF INDETERMINATE AGE Compared to ECG 03/14/2025 16:25:05 Right ventricular hypertrophy now present Incomplete right bundle-branch block now present Atrial fibrillation no longer present Right bundle-branch block no longer present Myocardial infarct finding still present /store/[id number].pdf
--- NOTE | 2025-03-15 02:07 | XR_ITS ---
Examination: AP chest single view TECHNIQUE: AP portable upright chest single view Date and time: March 15, 2025, 0219 hours Comparison March 11, 2025 INDICATIONS: Shortness of breath today. FINDINGS: Mild opacity in both lung mason consistent with pneumonia Multilocular cardiac contour Mild to moderate vascular congestion. Prominent osteopenia IMPRESSION: Bilateral pneumonia
--- NOTE | 2025-03-15 02:09 | PD.RESEVENT ---
Documentation for date of: 03/15/25 Event Note Event Note: A rapid response was called for the patient at 2:02 AM for shortness of breath. Patient was assessed and airway was intact but patient seemed to be exhibiting increased work of breathing and respiratory distress. This occurred while patient was receiving peritoneal dialysis. Vitals at the time were BP 127/84 HR 120-130 SpO2 93% on high-flow 30 L, 21% FiO2. Ordered an EKG, troponin, lactic acid, D-dimer, and CXR to rule out arrhythmias, NSTEMI, PE, or pneumonia. Will notify morning team to communicate with Dr. Amezcua that patient had 1 L pulled out of her by the peritoneal dialysis and will keep monitoring patient for any acute changes. -Jesus Alberto Mckee, DO PGY-1 Internal Medicine GME
[2025-03-15 02:25] LABS: Lactate (Lactic Acid) 2.0 mMol/L (0.4-2.0)
[2025-03-15 02:41] LABS: Basophils # (Auto) 0.0 Thou/mm3 (0.0-0.2); Basophils % (Auto) 0 % (0-2.5); Eosinophils # (Auto) 0.0 Thou/mm3 (0.0-0.5); Eosinophils % (Auto) 0 % (0-10); Hematocrit 27.6 % (36.0-46.0); Hemoglobin 9.8 g/dL (12.0-16.0); Immature Granulocytes Auto 0.29 Thou/mm3 (0.00-0.00); Lymphocytes # (Auto) 0.6 Thou/mm3 (1.0-4.8); Lymphocytes % (Auto) 3 % (10-50); Mean Corpuscular HGB Conc 35.5 g/dl (31.0-37.0); Mean Corpuscular Hemoglobin 30.0 pg (25.0-35.0); Mean Corpuscular Volume 84 fL (80-100); Monocytes # (Auto) 1.5 Thou/mm3 (0.0-0.8); Monocytes % (Auto) 8 % (0-12); Neutrophils # (Auto) 16.3 Thou/mm3 (1.8-7.7); Neutrophils % (Auto) 87 % (37-80); Nucleated Red Blood Cell # 0.00 Thou/mm3 (0.00-0.00); Nucleated Red Blood Cell % 0 /100 WBC (0); Platelet Count 293 Thou/mm3 (140-440); RDW Standard Deviation 47.5 fL (36.4-46.3); Red Blood Count 3.27 Miln/mm3 (4.00-5.20); White Blood Count 18.7 Thou/mm3 (3.6-11.0)
[2025-03-15 02:49] LABS: INR 0.9 (0.9-1.3); Partial Thromboplastin Time 23.1 Seconds (22.0-36.0); Prothrombin Time 10.3 Seconds (9.0-12.2)
[2025-03-15 03:07] LABS: D-Dimer 654 ng/mL (<600)
[2025-03-15 03:10] LABS: Alanine Aminotransferase 102 U/L (10-49); Albumin, Serum 3.9 gm/dL (3.4-4.8); Albumin/Globulin Ratio 1.4 (1.2-2.2); Alkaline Phosphatase 79 U/L (46-116); Anion Gap 15 (7-16); Aspartate Amino Transferase 29 U/L (0-34); BUN/Creatinine Ratio 12 Ratio (12-20); Bilirubin,Total 0.3 mg/dL (0.3-1.2); Blood Urea Nitrogen 79 mg/dL (9-23); Calcium 8.7 mg/dL (8.3-10.6); Calcium (Corrected) 8.8 mg/dL (8.5-10.1); Carbon Dioxide 25.3 mMol/L (20.0-31.0); Chloride 92 mMol/L (98-107); Creatinine (Component) 6.4 mg/dL (0.6-1.3); Estimated Creatinine Clearance 4.9 mL/min (>60); Free T4 (Free Thyroxine) 1.62 ng/dL (0.89-1.76); Globulin 2.8 gm/dL (2.3-3.5); Glucose 156 mg/dL (74-106); Magnesium 2.5 mg/dL (1.6-2.6); Osmolality,Calculated 291 (275-295); Phosphorous 4.1 mg/dL (2.4-5.1); Potassium 3.8 mMol/L (3.4-5.1); Sodium 132 mMol/L (136-145); Thyroid Stimulating Hormone 0.02 uIU/mL (0.55-4.78); Total Protein 6.7 gm/dL (5.7-8.2); eGFR 6 See Note
[2025-03-15 03:14] LABS: Troponin I 0.251 ng/mL (0.0-0.045)
[2025-03-15 03:18] LABS: B-Type Natriuretic Peptide 1608 pg/mL (0-100)
[2025-03-15 06:31] LABS: Thyroid Peroxidase Antibodies* 1 IU/mL (<9)
[2025-03-15 06:57] LABS: Troponin I 0.239 ng/mL (0.0-0.045)
--- NOTE | 2025-03-15 07:00 | XR_ITS ---
Ultrasound-guided needle placement right internal jugular vein Permanent tunneled dialysis catheter insertion, percutaneous Fluoroscopy AP chest, portable, single view. Date and time of procedure: March 15, 2025 1330 hours INDICATIONS: Renal failure, need for stat and long-term dialysis Informed consent provided Technique: A timeout was completed verifying correct patient, procedure, site, positioning, and special equipment if applicable. The patient was placed in a dependent position appropriate for dialysis catheter placement based on the vein to be cannulated. The patient'sright neck was prepped and draped in sterile fashion. Maximum Sterile Barrier Technique used including cap, mask, sterile gown, sterile gloves, and sterile full body drape. If ultrasound technique used: sterile gel and sterile probe covers. Hand Hygiene performed using proper scrub, soap and water, or alcohol-based hand rub. 1% lidocaine was used to anesthetize the surrounding skin area [facility] portable ultrasound apparatus utilized to confirm patency of the right internal jugular vein Utilizing ultrasonographic guidance successful 21-gauge needle puncture into the right internal jugular vein Ultrasound images were recorded and stored. Vessel micropuncture was performed with 21-gauge needle. 0.18 wire guide is introduced into the vein. 0.18 wire is introduced into the vena cava under fluoroscopy. Subcutaneous tunnel formed in the upper chest. Permanent tunneled dialysis catheter placed in the subcutaneous tunnel. Dilators were introduced over the J-wire guide. Tunneled dialysis catheter is introduced through a dilator with venous sheath into the superior vena cava under fluoroscopic guidance. The catheter is sutured in place to the skin and a sterile dressing applied. Perfusion to the extremity distal to the point of catheter insertion is checked and found to be adequate Attending radiologist was present for the entire procedure Estimated blood loss2 cc. The patient tolerated the procedure well and there were no complications Impression: Successful ultrasound-guided needle placement right internal jugular vein Successful permanent tunneled dialysis catheter insertion, percutaneous Fluoroscopy 0.4 minute radiation dose 1.54 milligray, 1 spot fluoroscopic chest film. AP chest performed at completion procedure demonstrates satisfactory position dialysis catheter. May use dialysis catheter.
[2025-03-15] MEDS: BREZTRI 2 EA INH ×2 (07:05→18:41)
--- NOTE | 2025-03-15 08:11 | PD.RESPRO ---
Documentation for date of: 03/15/25 Subjective Subjective Interval history: Patient seen and examined at bedside. Patient continues to be short of breath, using accessory muscles, and primary team did consult pulmonary. Now on 2L NC. Pulmonary consultation was done with Dr. 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 On high-dose steroids along with nebulizations. Also reviewed her xray and feel there is fluid overload also and recommended to change to HD as PD does not work well after few years. Director Business Development at [place] failed to find extrapulmonary causes of dyspnea and was discovered to have . GPA was in remission for many years after initial diagnosis in [place] treated with prednisone and methotrexate 25 years ago , renal disease manifested later [facility] biopsy was inconclusive and repeat biopsy at [facility] showed findings consistent with GPA, started on rituximab and steroid used but progressed to ESRD over time around 2020 Recommended hemodialysis previously by me also during last admission but daughter, sons who are the caregivers were not ready for it. Other vitals are stable, creatinine at 6.7, and cracles appreciated throughout the lung mason. Will continue to monitor closely and fluid management as per nephrology as patient on dialysis. Abnormal thyroid function tests and primary team ordered further lab tests; ultrasound of the thyroid revealed bilateral vascular solid thyroid nodules, primary team may consider ultrasound-guided fine-needle aspiration of both nodules. On 03/13/2025 Dr. Olivares had about 30 minutes discussion with the patient's daughter regarding starting the patient on HD, at least for couple of months, and she reported she would decide about it with further discussion with other family members and decide about HD. Finally, on 03/15/2025, patient's family agreed for hemodialysis. After successful placement of IR hemodialysis catheter, she is undergoing hemodialysis session this afternoon. Exam Vital Signs Temp Pulse Resp BP Pulse Ox O2 Del Method O2 Flow Rate 97.0 F 99 24 H 144/81 H 100 High Flow Nasal Cannula 4 03/15/25 04:00 03/15/25 06:49 03/15/25 06:49 03/15/25 04:00 03/15/25 06:49 03/15/25 04:00 03/15/25 06:49 FiO2 21 03/15/25 06:49 Narrative Exam General: Alert and oriented x3. In no acute distress. Eyes: Pupils are equal and reactive to light bilaterally. HEENT: Atraumatic, normocephalic. No JVD noted. Mucosa moist. Cardiovascular: Normal S1 and soft S2,. Tachycardic, 3/6 ejection systolic murmur heard at aortic area, 3/6 holosystolic murmur heard on the mitral area and parasternal area, trace peripheral pitting edema noted. Respiratory: Mild respiratory distress on oxygen via nasal cannula, use of accessory muscles appreciated, bilateral air entry present, wheezing noted. Significant crackles throughout the lung mason. Abdomen: Soft, nontender, nondistended. Skin: No rash. Warm to touch. Musculoskeletal: No gross injuries. Able to move all 4 extremities. Neuro: Alert and oriented x3. No focal neuro deficits. Psych: mildly depressed. Objective Labs 03/15/25 02:15 03/15/25 02:15 Labs: Laboratory Results - last 24 hr 03/11/25 03/15/25 03/15/25 05:39 02:15 05:25 WBC 18.7 H RBC 3.27 L Hgb 9.8 L Hct 27.6 L MCV 84 MCH 30.0 MCHC 35.5 RDW Std Deviation 47.5 H Plt Count 293 Neut % (Auto) 87 H Lymph % (Auto) 3 L [place] % (Auto) 8 Eos % (Auto) 0 Baso % (Auto) 0 Neut # (Auto) 16.3 H Lymph # (Auto) 0.6 L [place] # (Auto) 1.5 H Eos # (Auto) 0.0 Baso # (Auto) 0.0 Immature Gran # (Auto) 0.29 H Absolute Nucleated RBC 0.00 Immature Gran % 2 H Nucleated RBC % 0 PT 10.3 INR 0.9 APTT 23.1 D-Dimer 654 H Sodium 132 L Potassium 3.8 Chloride 92 L Carbon Dioxide 25.3 Anion Gap 15 BUN 79 H Creatinine 6.4 H* Estim Creat Clear Calc 4.9 L eGFR 6 L* BUN/Creatinine Ratio 12 Glucose 156 H Calculated Osmolality 291 Lactic Acid 2.0 Calcium 8.7 Corrected Calcium 8.8 Phosphorus 4.1 Magnesium 2.5 Total Bilirubin 0.3 AST 29 ALT 102 H Alkaline Phosphatase 79 Troponin I 0.251 H* 0.239 H* B-Natriuretic Peptide 1608 H* Total Protein 6.7 Albumin 3.9 Globulin 2.8 Albumin/Globulin Ratio 1.4 TSH 0.02 L* Free T4 1.62 Thyroid Peroxidase Ab 1 ABG Interpretation ABG results: 03/09/25 03/09/25 03/10/25 07:50 18:22 09:05 ABG pH 7.45 ABG pCO2 39 ABG pO2 289 H ABG HCO3 27 H ABG O2 Saturation 101 H ABG Base Excess 2 VBG pH 7.39 7.49 VBG pCO2 49 37 D VBG pO2 70 H 68 H VBG Base Excess 4 H 5 H 03/11/25 03/12/25 10:09 09:44 ABG pH 7.40 ABG pCO2 44 ABG pO2 80 L D ABG HCO3 27 H ABG O2 Saturation 95 ABG Base Excess 2 VBG pH 7.45 VBG pCO2 40 VBG pO2 39 D VBG Base Excess 4 H Quality Measures Quality Measures none Advance care planning discussed with:: patient and child Assessment & Plan Assessment Current Active Medications: Generic Name Dose Route Start Last Admin Trade Name Freq PRN Reason Stop Dose Admin Acetaminophen 650 mg 03/09/25 14:41 03/14/25 15:21 Acetaminophen 325 Mg Tablet PO 04/08/25 14:40 650 mg Q6H PRN Administration Mild Pain(1-3) or Fever >100.3 Atorvastatin Calcium 40 mg 03/09/25 21:00 03/14/25 21:06 Atorvastatin Calcium 20 Mg Tablet PO 04/08/25 20:59 40 mg HS SABRINA Administration Clopidogrel Bisulfate 75 mg 03/10/25 09:00 03/14/25 09:17 Clopidogrel Bisulfate 75 Mg Tablet PO 04/09/25 08:59 75 mg QDAY SABRINA Administration Dextrose 25 ml 03/12/25 08:16 Dextrose 50%-Water Inj 50 Ml Syringe IV 04/11/25 08:15 Q15MIN PRN BG 50-70 responsive npo pt Dextrose 50 ml 03/12/25 08:16 Dextrose 50%-Water Inj 50 Ml Syringe IV 04/11/25 08:15 Q15MIN PRN BG <50 OR BG <70 & pt unresponsive Diltiazem HCl 240 mg 03/10/25 09:00 03/14/25 09:17 Diltiazem Cd 120 Mg Capcr PO 04/09/25 08:59 240 mg QDAY SABRINA Administration Docusate Sodium 200 mg 03/15/25 09:00 Docusate Sod 100 Mg Capsule PO 04/14/25 08:59 QDAY [facility] Protocol Gabapentin 100 mg 03/11/25 12:15 03/12/25 11:28 Gabapentin 100 Mg Capsule PO 04/10/25 12:14 Not Given BID SABRINA Glucagon 1 mg 03/12/25 08:16 Glucagon Inj 1 Mg Vial IM Q15MIN PRN BG <70, and no IV access Heparin Sodium (Porcine) 5,000 unit 03/09/25 21:00 03/14/25 21:08 Heparin Sod Inj 5000 Unit/Ml Vial SC 03/23/25 20:59 5,000 unit BID SABRINA Administration Insulin Human Lispro 0 unit 03/12/25 11:30 03/14/25 17:53 Insulin Lispro (Admelog) 1 Unit/0.01 Ml Unit SC 04/11/25 11:29 Not Given AC [facility] Protocol Ipratropium [place] 0.5 mg 03/10/25 15:00 03/15/25 06:49 Ipratropium Rt 0.5 Mg/ 2.5 Ml Nebu INH 04/09/25 14:59 0.5 mg Q4HRRT SABRINA Administration Lactulose 20 gm 03/15/25 09:00 Lactulose Syrup 20 Gm/30 Ml Udc PO 04/14/25 08:59 BID [facility] Protocol Levalbuterol HCl 1.25 mg 03/10/25 15:00 03/15/25 06:49 Levalbuterol Rt 1.25 Mg/0.5 Ml Nebu INH 04/09/25 14:59 1.25 mg Q4HRRT SABRINA Administration Levalbuterol HCl 0.63 mg 03/11/25 22:53 03/14/25 16:21 Levalbuterol Rt 0.63 Mg/3 Ml Nebu INH 04/10/25 22:52 0.63 mg Q8HR PRN Administration WHEEZING Melatonin 3 mg 03/09/25 23:18 03/11/25 00:59 Melatonin 3 Mg Tablet PO 04/09/25 20:59 3 mg HS PRN Administration insomnia Methimazole 5 mg 03/14/25 14:00 03/14/25 21:07 Methimazole 5 Mg Tablet PO 04/13/25 13:59 5 mg TID SABRINA Administration Methylprednisolone Sodium Succinate 60 mg 03/15/25 09:00 Methylprednisolone Sod Succ 40 Mg Vial IVP 03/22/25 08:59 QDAY SABRINA Ondansetron HCl 4 mg 03/09/25 14:41 Ondansetron Inj 2 Mg/Ml Inj 2 Ml IVP 04/08/25 14:40 Q6H PRN NAUSEA OR VOMITING Protocol Pantoprazole Sodium 40 mg 03/10/25 09:00 03/14/25 09:17 Pantoprazole 40 Mg Tablet PO 04/09/25 08:59 40 mg QDAY SABRINA Administration Breztri (Budesonide, 2 ea 03/13/25 12:00 03/15/25 07:05 Glycopyrrolate And INH 04/12/25 11:59 2 puff Formoterol) BID SABRINA Administration Sennosides 1 tab 03/14/25 09:00 03/14/25 09:17 Senna Tablet PO 04/13/25 08:59 1 tab QDAY SABRINA Administration Protocol Sodium Chloride 3 ml 03/11/25 16:26 Sodium Chloride Rt Annika 0.9% 3 Ml Nebu INH 04/10/25 16:25 PRN PRN SOLN Plan A 84-year-old female with a past medical history of severe aortic stenosis with a valve area of 0.5 cm?, moderate MR and TR, moderate PAH, preserved EF with diastolic dysfunction, end-stage renal disease on peritoneal dialysis for the last 4 to 5 years, Antonia's granulomatosis diagnosed 25 years ago, chronic severe asthma since her early 20s, history of multifocal atrial tachycardia, 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 1. Acute hypoxic respiratory failure mostly secondary to fluid overload 2/2 failing PD, and 2. Acute asthma exacerbation 3. Severe aortic stenosis with a valve area less than 0.5 cm? 4. End-stage renal disease on peritoneal dialysis for past 4 to 5 years mostly secondary to Antonia's granulomatosis 5. Abnormal thyroid function tests 6. Multifocal atrial tachycardia 7. Valvular heart disease with severe aortic stenosis, moderate MR and TR 8. Moderate pulmonary artery pretension with an RVSP of 55 mmHg 9. Chronic diastolic congestive heart failure 10. 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 Patient started on high-dose steroids with Solu-Medrol 60 mg every every 8 hours decreased to every 12 hours, along with nebulizations and inhalers. Still continues to be on oxygen and now use of any accessory muscles appreciated. Combination of upper respiratory tract symptoms along with recent emotional stress. Also on IV antibiotics. Patient has been tachycardic On arrival and EKG reviewed. EKG shows irregularly irregular rhythm but most of the time is 100 to 130 bpm which is typical of multifocal atrial tachycardia. Has irregularly irregular rhythm with varying PP and OH intervals. 3 distinct P wave morphologies are also seen in the lead II. Also patient has underlying lung disease which could contribute's significantly for the multifocal atrial tachycardia Continue rate control with diltiazem 240 mg once daily as no beta-pratik can be given because of the as above. Will uptitrate the diltiazem to 360 mg once daily and if rate is not well-controlled. No anticoagulation required. Patient is mildly elevated troponins at 0.34 and 0.145. Troponin elevation mostly secondary to NSTEMI type II in the setting of supply/demand mismatch. Patient denies any Chest pain or chest pressure at the present moment. EKG showed marked without any acute ST-T changes history of ischemia. Patient is scheduled to have left and right heart cardiac catheterization on Wednesday as outpatient but cannot be done because of her acute hypoxic respiratory failure at the present point of time. Continue Plavix for now and high intensity statin. No beta-pratik because of asthma. No heparin drip required. Patient does have severe as noted above with a valve area of less than 0.5 cm?. Patient also has moderate MR and TR with moderate PAH noted on the previous echocardiogram in November 2024. Workup started as outpatient for the severe and as noted previously was scheduled for the left heart cardiac catheterization and right heart cardiac catheterization which will need to be postponed for now given her acute hypoxic respiratory failure. Will continue further workup of the severe as outpatient. 03/12/2025: Patient seen and examined at bedside. Patient continues to be short of breath, using accessory muscles, and primary team did consult pulmonary. Now on 2L NC. Pulmonary consultation was done with Dr. 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 On high-dose steroids along with nebulizations. Also reviewed her xray and feel there is fluid overload also and recommended to change to HD as PD does not work well after few years. Director Business Development at [place] failed to find extrapulmonary causes of dyspnea and was discovered to have . GPA was in remission for many years after initial diagnosis in [place] treated with prednisone and methotrexate 25 years ago , renal disease manifested later [facility] biopsy was inconclusive and repeat biopsy at [facility] showed findings consistent with GPA, started on rituximab and steroid used but progressed to ESRD over time around 2019 Recommended hemodialysis previously by me also during last admission but daughter, sons who are the caregivers were not ready for it. Other vitals are stable, creatinine at 6.7, and cracles appreciated throughout the lung mason. Will continue to monitor closely and fluid management as per nephrology as patient on dialysis. Abnormal thyroid function tests and primary team ordered further lab tests; ultrasound of the thyroid revealed bilateral vascular solid thyroid nodules, primary team may consider ultrasound-guided fine-needle aspiration of both nodules. On 03/13/2025 Dr. Olivares had about 30 minutes discussion with the patient's daughter regarding starting the patient on HD, at least for couple of months, and she reported she would decide about it with further discussion with other family members and decide about HD. Finally, on 03/15/2025, patient's family agreed for hemodialysis. After successful placement of IR hemodialysis catheter, she is undergoing hemodialysis session this afternoon. Management of rest of the medical conditions as per primary team and other consultants. Thank you for the consult and allowing me to participate in the care of the patient. Cardiology will continue to follow. The patient's management plan was discussed with my attending physician MD Kevin Murcia MD, PGY3 Attending Provider Attestation/Addendum I have personally seen and examined the patient separately on the above date of service and discussed the plan of care with the resident. I reviewed the resident Dr. Kevin Sullivan consultation progress note and agree with the resident findings and plan in the note above and have also edited the documentation to reflect my findings and plan. Jori Olivares M.D. Interventional Cardiology
[2025-03-15 09:43] LABS: Hepatitis B Surface Antigen Non Reactive (Non React)
--- NOTE | 2025-03-15 09:52 | ESPR_ITS ---
Documentation for date of: 03/15/25 Subjective Subjective Interval history: Overnight events: Rapid response was called at 0202 for shortness of breath during peritoneal dialysis. Patient was assessed with labs drawn. 19 ordered EKG, troponin, lactic acid, D-dimer, and chest x-ray. Patient was seen and examined at bedside. AM vitals reviewed. Ins/outs 360/0. Patient's a.m. labs are still pending. Per the patient's 2 AM labs BUN 79, creatinine 6.4, and GFR 6. BNP was noted to be elevated at 1608 with her previous BNP reading on admission at 345. Patient seen better today as she was able to sit up on her own and did not seem to be as acutely distressed by her breathing. Discussed with daughter about permanent catheter placement for hemodialysis as peritoneal dialysis may not be able to relieve the patient of her fluid overload. Daughter continues to want permanent catheter for hemodialysis and stated that she would like the patient's potassium to be higher at around 4.5 as she stools better at home with that potassium level. Confirmed with nursing staff that catheter will be placed hopefully before noon. Discussed with daughter about performing hemodialysis after catheter placement. Daughter understands and expressed desire to pursue outpatient hemodialysis for further management after discharge. Review of systems otherwise negative except for what is mentioned above. Exam Vital Signs Temp Pulse Resp BP Pulse Ox O2 Del Method O2 Flow Rate 97.4 F 108 H 17 127/94 H 99 High Flow Nasal Cannula 4 03/15/25 08:00 03/15/25 08:00 03/15/25 08:00 03/15/25 08:00 03/15/25 08:00 03/15/25 08:00 03/15/25 06:49 FiO2 21 03/15/25 06:49 Narrative Exam Physical Exam: General: Alert, no acute distress. Skin: Warm, dry, intact, no obvious rash. Head: Normocephalic, atraumatic. Eye: Normal conjunctiva, PERRL. Throat: Oral mucosa moist. No obvious lesions in oropharynx. Cardiovascular: Regular rate and rhythm, no murmur, +S1/S2. Respiratory: Respirations unlabored on HFNC. Neuro: No focal deficits observed. Conversant, moving all extremities. No overt cerebellar signs/incoordination. Psychiatric: Cooperative, appropriate affect. Objective Labs 03/17/25 05:16 03/17/25 05:16 Labs: Laboratory Results - last 24 hr 03/11/25 03/15/25 03/15/25 05:39 02:15 05:25 WBC 18.7 H RBC 3.27 L Hgb 9.8 L Hct 27.6 L MCV 84 MCH 30.0 MCHC 35.5 RDW Std Deviation 47.5 H Plt Count 293 Neut % (Auto) 87 H Lymph % (Auto) 3 L [place] % (Auto) 8 Eos % (Auto) 0 Baso % (Auto) 0 Neut # (Auto) 16.3 H Lymph # (Auto) 0.6 L [place] # (Auto) 1.5 H Eos # (Auto) 0.0 Baso # (Auto) 0.0 Immature Gran # (Auto) 0.29 H Absolute Nucleated RBC 0.00 Immature Gran % 2 H Nucleated RBC % 0 PT 10.3 INR 0.9 APTT 23.1 D-Dimer 654 H Sodium 132 L Potassium 3.8 Chloride 92 L Carbon Dioxide 25.3 Anion Gap 15 BUN 79 H Creatinine 6.4 H* Estim Creat Clear Calc 4.9 L eGFR 6 L* BUN/Creatinine Ratio 12 Glucose 156 H Calculated Osmolality 291 Lactic Acid 2.0 Calcium 8.7 Corrected Calcium 8.8 Phosphorus 4.1 Magnesium 2.5 Total Bilirubin 0.3 AST 29 ALT 102 H Alkaline Phosphatase 79 Troponin I 0.251 H* 0.239 H* B-Natriuretic Peptide 1608 H* Total Protein 6.7 Albumin 3.9 Globulin 2.8 Albumin/Globulin Ratio 1.4 TSH 0.02 L* Free T4 1.62 Thyroid Peroxidase Ab 1 Hep Bs Antigen Non Reactive ABG Interpretation ABG results: 03/09/25 03/09/25 03/10/25 07:50 18:22 09:05 ABG pH 7.45 ABG pCO2 39 ABG pO2 289 H ABG HCO3 27 H ABG O2 Saturation 101 H ABG Base Excess 2 VBG pH 7.39 7.49 VBG pCO2 49 37 D VBG pO2 70 H 68 H VBG Base Excess 4 H 5 H 03/11/25 03/12/25 10:09 09:44 ABG pH 7.40 ABG pCO2 44 ABG pO2 80 L D ABG HCO3 27 H ABG O2 Saturation 95 ABG Base Excess 2 VBG pH 7.45 VBG pCO2 40 VBG pO2 39 D VBG Base Excess 4 H Quality Measures Quality Measures none Advance care planning discussed with:: patient and child Assessment & Plan Assessment Current Active Medications: Generic Name Dose Route Start Last Admin Trade Name Freq PRN Reason Stop Dose Admin Acetaminophen 650 mg 03/09/25 14:41 03/14/25 15:21 Acetaminophen 325 Mg Tablet PO 04/08/25 14:40 650 mg Q6H PRN Administration Mild Pain(1-3) or Fever >100.3 Atorvastatin Calcium 40 mg 03/09/25 21:00 03/14/25 21:06 Atorvastatin Calcium 20 Mg Tablet PO 04/08/25 20:59 40 mg HS SABRINA Administration Dextrose 25 ml 03/12/25 08:16 Dextrose 50%-Water Inj 50 Ml Syringe IV 04/11/25 08:15 Q15MIN PRN BG 50-70 responsive npo pt Dextrose 50 ml 03/12/25 08:16 Dextrose 50%-Water Inj 50 Ml Syringe IV 04/11/25 08:15 Q15MIN PRN BG <50 OR BG <70 & pt unresponsive Diltiazem HCl 240 mg 03/10/25 09:00 03/14/25 09:17 Diltiazem Cd 120 Mg Capcr PO 04/09/25 08:59 240 mg QDAY SABRINA Administration Docusate Sodium 200 mg 03/15/25 09:00 Docusate Sod 100 Mg Capsule PO 04/14/25 08:59 QDAY SABRINA Protocol Gabapentin 100 mg 03/11/25 12:15 03/12/25 11:28 Gabapentin 100 Mg Capsule PO 04/10/25 12:14 Not Given BID SABRINA Glucagon 1 mg 03/12/25 08:16 Glucagon Inj 1 Mg Vial IM Q15MIN PRN BG <70, and no IV access Insulin Human Lispro 0 unit 03/12/25 11:30 03/14/25 17:53 Insulin Lispro (Admelog) 1 Unit/0.01 Ml Unit SC 04/11/25 11:29 Not Given AC SABRINA Protocol Ipratropium [place] 0.5 mg 03/10/25 15:00 03/15/25 06:49 Ipratropium Rt 0.5 Mg/ 2.5 Ml Nebu INH 04/09/25 14:59 0.5 mg Q4HRRT SABRINA Administration Lactulose 20 gm 03/15/25 09:00 Lactulose Syrup 20 Gm/30 Ml Udc PO 04/14/25 08:59 BID SABRINA Protocol Levalbuterol HCl 1.25 mg 03/10/25 15:00 03/15/25 06:49 Levalbuterol Rt 1.25 Mg/0.5 Ml Nebu INH 04/09/25 14:59 1.25 mg Q4HRRT SABRINA Administration Levalbuterol HCl 0.63 mg 03/11/25 22:53 03/14/25 16:21 Levalbuterol Rt 0.63 Mg/3 Ml Nebu INH 04/10/25 22:52 0.63 mg Q8HR PRN Administration WHEEZING Melatonin 3 mg 03/09/25 23:18 03/11/25 00:59 Melatonin 3 Mg Tablet PO 04/09/25 20:59 3 mg HS PRN Administration insomnia Methimazole 5 mg 03/15/25 08:45 Methimazole 5 Mg Tablet PO 04/14/25 08:44 TID SABRINA Methylprednisolone Sodium Succinate 60 mg 03/15/25 09:00 03/15/25 09:15 Methylprednisolone Sod Succ 40 Mg Vial IVP 03/22/25 08:59 60 mg QDAY SABRINA Administration Ondansetron HCl 4 mg 03/09/25 14:41 Ondansetron Inj 2 Mg/Ml Inj 2 Ml IVP 04/08/25 14:40 Q6H PRN NAUSEA OR VOMITING Protocol Pantoprazole Sodium 40 mg 03/10/25 09:00 03/14/25 09:17 Pantoprazole 40 Mg Tablet PO 04/09/25 08:59 40 mg QDAY SABRINA Administration Breztri (Budesonide, 2 ea 03/13/25 12:00 03/15/25 07:05 Glycopyrrolate And INH 04/12/25 11:59 2 puff Formoterol) BID SABRINA Administration Sennosides 1 tab 03/14/25 09:00 03/14/25 09:17 Senna Tablet PO 04/13/25 08:59 1 tab QDAY SABRINA Administration Protocol Sodium Chloride 3 ml 03/11/25 16:26 Sodium Chloride Rt Annika 0.9% 3 Ml Nebu INH 04/10/25 16:25 PRN PRN SOLN Plan Mrs. eLe is a pleasant 84 year old lady with a relevant medical history of ESRD on peritoneal dialysis BID 2/2 Donna's granulomatosis, asthma, diastolic heart failure, moderate to severe aortic stenosis, and CVA, who presents with SOB that started about two days ago. Nephrology was consulted for management of her peritoneal dialysis. #ESRD on Peritoneal Dialysis #ESRD 2/2 Donna's Granulomatosis #Fluid overload status - Discontinue nightly peritoneal dialysis. - Permanent dialysis catheter scheduled for today with hemodialysis scheduled after. - Suspect that peritoneal dialysis was not sufficient in removing adequate volume. - After hemodialysis session, patient can establish with outpatient hemodialysis after discharge. - Continue to monitor renal function. - Avoid IV hydration given past history of fluid overload and CHF. - Avoid nephrotoxic drugs and renally adjust medications. - Nephrology will continue to follow. Patient was discussed with the Nephrology attending, Dr. Amezcua. Thank you for allowing us to participate in the care of this patient. Rogelio Asher, PGY-1 Attending Provider Attestation/Addendum Agree with assessment and plan and finding of resident. Temo Amezcua MD
--- NOTE | 2025-03-15 10:21 | ESPR_ITS ---
Documentation for date of: 03/15/25 Patient examined at bedside. Patient scheduled for tunnel catheter for new HD. HIV, PPD, and hepatitis panel ordered. First session of dialysis planned for tonight. Repeat BNP 1608. Conitnue to with breathing treatments. Repeat TSH 0.02 and Free T4 1.62, down from T4 1.87 (03/10/2025). Thyroid Peroxidase AB 1. Pending ANCA, Anti-proteinase, and Anti-myeloperoxidase. Renal diet. Resume Plavix AM on 03/16/2025. Subjective Subjective Interval history: Patient was evaluated at bedside along with her daughter, Dr. Parker. Patient was on 4L oxygen in the morning and afternoon satting high 90s FiO2 21. Completed tunnel dialysis catheter and hemodialysis session today. Exam Vital Signs Temp Pulse Resp BP Pulse Ox O2 Del Method O2 Flow Rate 97.4 F 108 H 17 127/94 H 99 High Flow Nasal Cannula 4 03/15/25 08:00 03/15/25 08:00 03/15/25 08:00 03/15/25 08:00 03/15/25 08:00 03/15/25 08:00 03/15/25 06:49 FiO2 21 03/15/25 06:49 Narrative Exam General Appearance: Alert & Oriented X3, well-nourished female who is lying in bed in mild distress due to acute respiratory failure. HEENT: Skull symmetrical and atraumatic. Conjunctivae pink and moist. Pupils equal, round, reactive to light and accommodation (PERRL). External ear without lesion or discharge. Straight, nares patient, mucosa pink, no discharge. No thyroid nodule appreciated. No cervical lymphadenopathy. Cardio: Normal Rate and Rhythm with S1 and S2 heart sounds. No murmurs or extra heart sounds auscultated. No bruits on carotid auscultation. No peripheral edema or cyanosis. Lungs: Symmetric with good expansion. Chest and back non-tender. Breath sounds vesicular with wheezing. Abdomen: Non-tender, Non-distended, Normal Reactive Bowel Sounds Neuro: Alert, cooperative, oriented to person, place, and time. Speech clear. CN grossly intact. Upper motor strength 5/5 and Lower motor strength 5/5. Sensation intact. Objective Labs 03/16/25 03:16 03/16/25 03:16 Labs: Laboratory Results - last 24 hr 03/11/25 03/15/25 03/15/25 05:39 02:15 05:25 WBC 18.7 H RBC 3.27 L Hgb 9.8 L Hct 27.6 L MCV 84 MCH 30.0 MCHC 35.5 RDW Std Deviation 47.5 H Plt Count 293 Neut % (Auto) 87 H Lymph % (Auto) 3 L [place] % (Auto) 8 Eos % (Auto) 0 Baso % (Auto) 0 Neut # (Auto) 16.3 H Lymph # (Auto) 0.6 L [place] # (Auto) 1.5 H Eos # (Auto) 0.0 Baso # (Auto) 0.0 Immature Gran # (Auto) 0.29 H Absolute Nucleated RBC 0.00 Immature Gran % 2 H Nucleated RBC % 0 PT 10.3 INR 0.9 APTT 23.1 D-Dimer 654 H Sodium 132 L Potassium 3.8 Chloride 92 L Carbon Dioxide 25.3 Anion Gap 15 BUN 79 H Creatinine 6.4 H* Estim Creat Clear Calc 4.9 L eGFR 6 L* BUN/Creatinine Ratio 12 Glucose 156 H Calculated Osmolality 291 Lactic Acid 2.0 Calcium 8.7 Corrected Calcium 8.8 Phosphorus 4.1 Magnesium 2.5 Total Bilirubin 0.3 AST 29 ALT 102 H Alkaline Phosphatase 79 Troponin I 0.251 H* 0.239 H* B-Natriuretic Peptide 1608 H* Total Protein 6.7 Albumin 3.9 Globulin 2.8 Albumin/Globulin Ratio 1.4 TSH 0.02 L* Free T4 1.62 Thyroid Peroxidase Ab 1 Hep Bs Antigen Non Reactive ABG Interpretation ABG results: 03/09/25 03/09/25 03/10/25 07:50 18:22 09:05 ABG pH 7.45 ABG pCO2 39 ABG pO2 289 H ABG HCO3 27 H ABG O2 Saturation 101 H ABG Base Excess 2 VBG pH 7.39 7.49 VBG pCO2 49 37 D VBG pO2 70 H 68 H VBG Base Excess 4 H 5 H 03/11/25 03/12/25 10:09 09:44 ABG pH 7.40 ABG pCO2 44 ABG pO2 80 L D ABG HCO3 27 H ABG O2 Saturation 95 ABG Base Excess 2 VBG pH 7.45 VBG pCO2 40 VBG pO2 39 D VBG Base Excess 4 H Quality Measures Quality Measures none Advance care planning discussed with:: patient Assessment & Plan Assessment Current Active Medications: Generic Name Dose Route Start Last Admin Trade Name Freq PRN Reason Stop Dose Admin Acetaminophen 650 mg 03/09/25 14:41 03/14/25 15:21 Acetaminophen 325 Mg Tablet PO 04/08/25 14:40 650 mg Q6H PRN Administration Mild Pain(1-3) or Fever >100.3 Atorvastatin Calcium 40 mg 03/09/25 21:00 03/14/25 21:06 Atorvastatin Calcium 20 Mg Tablet PO 04/08/25 20:59 40 mg HS SABRINA Administration Dextrose 25 ml 03/12/25 08:16 Dextrose 50%-Water Inj 50 Ml Syringe IV 04/11/25 08:15 Q15MIN PRN BG 50-70 responsive npo pt Dextrose 50 ml 03/12/25 08:16 Dextrose 50%-Water Inj 50 Ml Syringe IV 04/11/25 08:15 Q15MIN PRN BG <50 OR BG <70 & pt unresponsive Diltiazem HCl 240 mg 03/10/25 09:00 03/14/25 09:17 Diltiazem Cd 120 Mg Capcr PO 04/09/25 08:59 240 mg QDAY SABRINA Administration Docusate Sodium 200 mg 03/15/25 09:00 Docusate Sod 100 Mg Capsule PO 04/14/25 08:59 QDAY SABRINA Protocol Gabapentin 100 mg 03/11/25 12:15 03/12/25 11:28 Gabapentin 100 Mg Capsule PO 04/10/25 12:14 Not Given BID SABRINA Glucagon 1 mg 03/12/25 08:16 Glucagon Inj 1 Mg Vial IM Q15MIN PRN BG <70, and no IV access Insulin Human Lispro 0 unit 03/12/25 11:30 03/14/25 17:53 Insulin Lispro (Admelog) 1 Unit/0.01 Ml Unit SC 04/11/25 11:29 Not Given AC SABRINA Protocol Ipratropium [place] 0.5 mg 03/10/25 15:00 03/15/25 06:49 Ipratropium Rt 0.5 Mg/ 2.5 Ml Nebu INH 04/09/25 14:59 0.5 mg Q4HRRT SABRINA Administration Lactulose 20 gm 03/15/25 09:00 Lactulose Syrup 20 Gm/30 Ml Udc PO 04/14/25 08:59 BID SABRINA Protocol Levalbuterol HCl 1.25 mg 03/10/25 15:00 03/15/25 06:49 Levalbuterol Rt 1.25 Mg/0.5 Ml Nebu INH 04/09/25 14:59 1.25 mg Q4HRRT SABRINA Administration Levalbuterol HCl 0.63 mg 03/11/25 22:53 03/14/25 16:21 Levalbuterol Rt 0.63 Mg/3 Ml Nebu INH 04/10/25 22:52 0.63 mg Q8HR PRN Administration WHEEZING Melatonin 3 mg 03/09/25 23:18 03/11/25 00:59 Melatonin 3 Mg Tablet PO 04/09/25 20:59 3 mg HS PRN Administration insomnia Methimazole 5 mg 03/15/25 08:45 Methimazole 5 Mg Tablet PO 04/14/25 08:44 TID SABRINA Methylprednisolone Sodium Succinate 60 mg 03/15/25 09:00 03/15/25 09:15 Methylprednisolone Sod Succ 40 Mg Vial IVP 03/22/25 08:59 60 mg QDAY SABRINA Administration Ondansetron HCl 4 mg 03/09/25 14:41 Ondansetron Inj 2 Mg/Ml Inj 2 Ml IVP 04/08/25 14:40 Q6H PRN NAUSEA OR VOMITING Protocol Pantoprazole Sodium 40 mg 03/10/25 09:00 03/14/25 09:17 Pantoprazole 40 Mg Tablet PO 04/09/25 08:59 40 mg QDAY SABRINA Administration Breztri (Budesonide, 2 ea 03/13/25 12:00 03/15/25 07:05 Glycopyrrolate And INH 04/12/25 11:59 2 puff Formoterol) BID SABRINA Administration Sennosides 1 tab 03/14/25 09:00 03/14/25 09:17 Senna Tablet PO 04/13/25 08:59 1 tab QDAY SABRINA Administration Protocol Sodium Chloride 3 ml 03/11/25 16:26 Sodium Chloride Rt Annika 0.9% 3 Ml Nebu INH 04/10/25 16:25 PRN PRN SOLN Plan Plan Patient is an 84-year-old female with a past medical history CHF HFpEF 55 to 60% (11/23/2024), systolic dysfunction, moderate PAH 55, moderate to severe with V-max 3.8, ESRD status post peritoneal dialysis dialysis, chronic asthma since early 20s, 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 #Acute hypoxic respiratory failure secondary to asthma exacerbation #Acute on Chronic Asthma exacerbation #Granulomatosis w/ Polyangiitis-formerly known as Antonia's Patient presented to the ED via EMS with a two day history of worsening shortness of breath. Patient's family noticed the patient wheezing while receiving dialysis and called EMS. While in the emergency room department, several episode of spO2 80s on nasal cannula-->transitioned to Bipap. While in ER, increased work of breathing, RR high 30s/40s with abdominal breathing noted, increase in FiO 10-->30. Repeat ABG pH 7.45, pO2 289, HC03 27-->decrease in FIO2 to 20. Daughter at bedside noted an URI several days ago and is concern this may have triggered current exacerbation. 03/11/2025 patient evaluated bedside, in acute respiratory distress, noted to have wheezing evidence of accessory muscles, trouble breathing, respiratory rate in the high 30s, saturating well on 20 L high flow nasal, oxygen, but increased work of breathing. Blood gas was ordered which showed pH and PO2 within normal range, given methylprednisone 125 mg x 1, ordered hour-long nebulization with albuterol, added budesonide nebulization. Consulted ICU/level glass forming machine operator Dr. Arellano, who recommended that given patient's diagnosis of Antonia's granulomatosis in the past, and history of longstanding asthma which was relatively well-controlled until recently, noted ANCA and MPO/OR-3 antibodies. Agreed with IV steroids for now, but patient might require increasing doses if acute flare of Antonia's granulomatosis. Also considering possibility of cardiac asthma given, severe aortic stenosis leading to worsening of asthma. Patient might benefit from early aortic valve replacement as soon as clinical condition is stable. Also consider trial of hemodialysis for adequate ultrafiltration as peritoneal dialysis unable to remove adequate fluid. 03/12/2025 patient noted to have respiratory rate of 20 currently on high flow oxygen 20 L satting 96 with FiO2 21; ABG pO2 80 HCO3 27 pH 7.40 pCO2 44. Blood culture negative after 48 hours, MRSA screen negative, and Peritoneal Dialysis Culture pending. 03/13/2025 patient noted to have respiratory rate of 20 currently weaning high flow oxygen to 15 L satting between 95-100 FiO2 21 in the morning. Respiratory rate 18 with 13 L high flow oxygen satting 92 FiO2 21 in the afternoon. 03/14/2025 patient noted to have respiratory rate <20 currently weaning to 5 L oxygen satting between 93-97 FiO2 21 in the morning. Respiratory rate <20 weaned to 3L oxygen satting 98 FiO2 in the afternoon. Rapid response 03/15 202 patient noted to have respiratory rate of 30 with pulse rate 119 on HFNC 30L oxygen satting 94 FiO2 21 Patient noted to have respiratory rate <20 weaning to 4L oxygen satting high 90s FiO2 21 later in the morning and afternoon. Plan: -Continue NC, currently at 5 L/min, attempt to wean down oxygen. -Continue Methylprednisone 60 mg IV Qday -Continue Levalbuterol 1.25 mg INH Q4HRRT, Ipratropium 0.5 INH Q4HRRT -Discontinued Budenoside BIDRT -Azithromycin Course Completed (03/09/2025-03/12/2025) & Ceftriaxone 03/10/2025- 03/11/2025 -Consider ANCA levels/ESR to determine possible exacerbation as relapses with Antonia are common, specially with reported coffee ground emesis #ESRD on peritoneal dialysis #ESRD secondary to Granulomatosis Per patient history, follows Dr. Amezcua and Dr. Coley. Patient develoepd ESRD several years ago likely secondary to Granulomatosis. Peritoneal dialysis, daily. Consult nephrology for scheduled daily dialysis. Plan -Placement of tunnel dialysis catheter completed today with hemodialysis session -Family would like to proceed with HD, NPO after-night, and ordered added. -Strict in and outs. -Stop Peritoneal dialysis -Avoid nephrotoxins, consider renal dosing -Nephrology Consulted, Dr. Amezcua, appreciate recommendations. -Peritoneal fluid culture: no growth #Constipation Patient has not had a bowel movement in 5 days. Patient has been given senna, lactulose. Ordered glycerin suppository. Plan: -Oil enema, followed by possible fecal disimpaction if necessary #Concern for Hyperthyroidism Noted suppressed TSH and elevated T4 levels, limited utility of thyroid function test during acute illness and hospitalization. the patient will eventually require repeat thyroid function test once discharged to confirm thyroid disorders. Also patient has longstanding history of MAT likely secondary to pulmonary disorder, less likely influenced by thyroid. -Thyroid US: bilateral vascular thyroid nodules, consider fine needle aspiration; 03/15 TSH 0.02 T4 1.62 -TSI/TSH-R Antibodies pending; 03/11 TPO 1 -Repeat thyroid function testing in 3 to 4 weeks after discharge, and follow-up with transcriptionist -Continue methimazole 5 mg PO TID #Acute on Chronic Congestive Heart Failure #CHF HFpEF 60-65% (03/12/2025) #Mild Pulmonary Vascular Congestion #Moderate to Severe Aortic Stenosis, AV vmax 3.8 m #Severe Mitral Regurgitation #Moderate PAH, 55 mmHg Patient likely acute on chronic congestive heart failure this, may only be mild exacerbation as pulmonary vascular congestion was less prominent as compared to other episode. Previous CHF exacerbation BNP 1691.Acute on chronic CHF exacerbation likely triggered by asthma exacerbation. Diagnostics: Echo (03/12/2025): Normal LV size and function. EF 60-65%. Diastolic dysfunction present but cannot be graded due to arrhythymia.Normal RV size and function. Estimated RVSP moderately elevated RVSP 50-55 mm hg.Moderate to Severe . AV vmax 3.8 m/s, Mean PG 38 mm hg. LATRICE 0.5 sq cm. -BNP 03/09 345; 03/15 1608 -Chest x-ray (03/10/2025): Mild chronic heart failure pattern, prominent vascular congestion-overall mild chornic heart failure Plan: -Lasix 40 mg IV X 1 (03/10/2025) -Strict Ins and Outs -Fluid Restrictions 1800 -Oxygen support -Cardiology consult Dr. Campa, recommend changing to hemodialysis from peritoneal dialysis #MAT #Atrial Fibrillation, less likely #EKG Abnormalities Patient has a past medical history of previous reported Atrial Fibrillation, per daughter, was told it was less likely atrial fibrillation, decision was made for no Eliquis and only Plavix on board for history of CVA. This EKG read A.fib w/ rvr but not all leads irregular and some noted with possible p waves. r waves present, no deep q waves noted. V1/V2 possible t wave abnormalities. 03/14/2025 EKG ordered, noted HR 100 likely MAT, likely secondary to levalbuterol. Consider decreasing Levalbuterol doses as patient's work of breathing improves. Plan -Diltiazem 240 mg PO scheduled -AVOID BETA BLOCKERS GIVEN ASTHMA EXACERBATION -Cardiology consult completed, possible uptration to Diltiazem 360 mg PO QD if rate is not well controlled, anti-coagulation not required #Mild Transaminitis Patient's AST remaining elevated; ALT trending upwards Pertinent labs: 03/09 AST/ALT 46/46; 03/11: 37/63; 03/14: 36/105 Plan: Monitor and trend liver enzymes if concern, consider hepatitis panel #Mild Troponemia #NSTEMI, type II likely demand ischemia Mild elevation in Troponin likely in the setting of demand ischemia from asthma exacerbation. Denied chest pain, palpitations, or chest pressure. No st elevation noted. Plan -Repeat Troponin 03/10 peaked at 0.141. #Single Episode of Hematemsis #Normocytic Normochromic Anemia Pertinent lab values 03/14 MCV 86 Hgb 9.4 Hct 26.6 RBC 3.11 03/15 MCV 84 Hgb 9.8 Hct 27.6 RBC 3.27 Given past medical history of GERD, consider gastric ulcers-given reported coffee ground emesis vs Granulomatosis flare vs lower GI bleed. Plan: -Monitor hgb >7 goal -Consider occult blood AM, if worsening drop -Consider gastroenterology consult with Dr. Abraham, if repeat episodes of coffee ground emesis #History of CVA Past medical history of CVA Plan -plavix given coffee ground emesis. #GERD #Gastritis (?) Per the patient's daughter, the patient recently experienced coffee ground emesis w/ history of GERD. Plan: Continue Pantoprazole 40 mg PO QD-->Transition to Pantoprazole 40 mg IV BID (AM) #history of Fracture Neck of Right Femur Patient underwent surgical repair of closed right hip neck fracture on 12/01/[address] Lee Plan: Monitor for possible rehabilitation DVT prophylaxis: No DVT prophylaxis in setting of suspected GI bleed and anemia GI prophylaxis: IV Protonix qday Diet: NPO after midnight Lines: Peripheral IV Code status: Full code Case discussed with attending physician Dr. Martinez and resident Dr. Angela Sena MS-4 - The patient's plan was discussed with attending Dr. Juan Miller MD PGY2 Internal Medicine Attending Provider Attestation/Addendum 84-year-old female with multiple comorbidities including heart failure with preserved EF with EF 55-60%, severe aortic stenosis with V-max 3.8, pulmonary hypertension, granulomatosis with polyangiitis with subsequent end-stage renal disease on peritoneal dialysis history of ischemic CVA with right-sided hemiparesis, hypertension, hyperlipidemia presented to the ER with shortness of breath found to have acute hypoxic respiratory failure multifactorial including asthma exacerbation and fluid overload state. Initially, patient did require BiPAP and advised to continue IV steroids, IV antibiotic therapy and plan for peritoneal dialysis. Furthermore, patient also has moderate to severe aortic stenosis with pulmonary arterial hypertension and plan to consult cardiology. Overnight, patient respiratory status improving currently on 10 L oxy mask. Discussed case with pulmonary and nephrology team and plan for a TDC placement for possible hemodialysis initiation. In addition, plan to continue IV steroids, IV antibiotic and peritoneal dialysis. Appreciate cardiology, pulmonary and nephrology input. I reviewed above note and agree with findings and plans. I have also personally examined the patient with medicine team and went over assessment and plan with medical team including chief internal auditor and resident physician.
--- NOTE | 2025-03-15 10:41 | PC.CM ---
Patient is opened to [facility]. She will need new home health orders if she is to discharge home.
[2025-03-15 11:26] LABS: Troponin I 0.216 ng/mL (0.0-0.045)
--- NOTE | 2025-03-15 11:59 | PC.SS ---
TASNEEM confirmed with patient's daughter that outpatient dialysis sessions will be conducted at [facility] dialysis on [facility]. Dr. Leo, will be transportation program director. TASNEEM updated clinical team.
--- NOTE | 2025-03-15 12:35 | PC.SS ---
CASE MANAGERS informed bedside nurse that TB test and HEP panel will need to be ordered for outpatient dialysis sessions.
[2025-03-15] MEDS: fentaNYL CIT INJ 50 mCg/ML AMP 2ML 37.5 MCG IVP (14:08)
[2025-03-15] MEDS: HEPARIN SOD LOCK SYR 100 UNIT/ML 500 UNIT STFIELD (14:10)
[2025-03-15] MEDS: LIDOCAINE INJ PF 1% 30 ML VIAL 11 ML INFL (14:10)
--- NOTE | 2025-03-15 14:53 | PC.SS ---
Rounding Note: Patient received tunnel catheter. Plan is for the patient to particpate with dialysis session today.
--- NOTE | 2025-03-15 14:54 | PC.SS ---
FLOOR PRESS OPERATOR notified bedside nurse of need to initiate room air evaluation to confirm patient's need for home oxygen.
--- NOTE | 2025-03-15 17:26 | PC.SS ---
Patient's family will arrange dialysis sessions for patient at [facility]. Dr. Leo is the actuarial clerk. Patient has obtained tunnel catheter.
[2025-03-15] MEDS: HEPARIN SOD INJ 1000 UNIT/ML VIAL 10 ML 3300 UNIT INDWELLCAT (18:17)
[2025-03-15] MEDS: MELATONIN 3 MG TABLET PO (18:33)
--- NOTE | 2025-03-15 18:55 | PC.NURSE ---
patient o2sat on room air-85% at rest, o2sats on 2liters is 98%
[2025-03-15] MEDS: TUBERCULIN PPD INJ 5 UNIT/0.1 ML DOSE ID (19:49)
[2025-03-15] MEDS: DILTIAZEM CD 120 MG CAPCR 240 MG PO (20:02)
[2025-03-15] MEDS: METHIMAZOLE 5 MG TABLET PO (21:18)
[2025-03-15] MEDS: ATORVASTATIN CALCIUM 20 MG TABLET 40 MG PO (21:18)
[2025-03-15] MEDS: GLYCERIN, ADULT 1 EA SUPP 1 EACH PR (21:19)
[2025-03-15] MEDS: GABAPENTIN 100 MG CAPSULE PO (21:47)
[2025-03-15] MEDS: ACETAMINOPHEN 325 MG TABLET 650 MG PO (23:16)
[2025-03-16] VITALS (37 sets, daily range): BP systolic 77–156; BP diastolic 48–103; PULSE 21–137; RESP 12–97; TEMP 36.1–36.9; O2SAT 85–100; BMI 28.3
--- NOTE | 2025-03-16 00:51 | PC.NURSE ---
seen and examined by Dr. Mckee.
--- NOTE | 2025-03-16 00:54 | PC.NURSE ---
Per Dr. Mckee switch pt to High Flow O2 inh from nasal cannula- notifed RT.
[2025-03-16] MEDS: LEVALBUTEROL RT 1.25 MG/0.5 ML NEBU INH ×6 (02:20→23:12)
[2025-03-16] MEDS: IPRATROPIUM RT 0.5 MG/ 2.5 ML NEBU INH ×6 (02:20→23:11)
--- NOTE | 2025-03-16 03:00 | XR_ITS ---
Examination: AP chest single view TECHNIQUE: AP portable upright chest single view Date and time: March 16, 2025 0327 hours INDICATIONS: Chest pain today with hypoxia FINDINGS: Prominent CHF Moderate enlargement cardiac contour with prominent vascular congestion and perihilar edema Right internal jugular dialysis catheter tip satisfactory position Moderate osteopenia. IMPRESSION: Prominent CHF
--- NOTE | 2025-03-16 03:10 | PC.NURSE ---
seen and examined by Dr. Wale ware/ orders made and carried out.
[2025-03-16] MEDS: LACTULOSE SYRUP 20 GM/30 ML UDC PO ×2 (03:13→13:22)
[2025-03-16 03:17] LABS: Base Excess 4 (-3-3); HCO3 29 mEq/L (20-26); Inspired Oxygen, FIO2 21 %; O2 Saturation 98 % (91-98); PCO2 46 mmHg (32.0-48.0); PO2 97 mmHg (83-108); pH, Arterial 7.41 (7.35-7.45)
[2025-03-16 03:19] LABS: Allen Test Performed/OK; Puncture Site Left Radial
[2025-03-16 03:31] LABS: Lactate (Lactic Acid) 1.4 mMol/L (0.4-2.0)
[2025-03-16 03:33] LABS: Basophils # (Auto) 0.0 Thou/mm3 (0.0-0.2); Basophils % (Auto) 0 % (0-2.5); Eosinophils # (Auto) 0.0 Thou/mm3 (0.0-0.5); Eosinophils % (Auto) 0 % (0-10); Hematocrit 27.8 % (36.0-46.0); Hemoglobin 9.5 g/dL (12.0-16.0); Immature Granulocytes Auto 0.29 Thou/mm3 (0.00-0.00); Lymphocytes # (Auto) 0.5 Thou/mm3 (1.0-4.8); Lymphocytes % (Auto) 3 % (10-50); Mean Corpuscular HGB Conc 34.2 g/dl (31.0-37.0); Mean Corpuscular Hemoglobin 29.8 pg (25.0-35.0); Mean Corpuscular Volume 87 fL (80-100); Monocytes # (Auto) 1.3 Thou/mm3 (0.0-0.8); Monocytes % (Auto) 6 % (0-12); Neutrophils # (Auto) 18.4 Thou/mm3 (1.8-7.7); Neutrophils % (Auto) 90 % (37-80); Nucleated Red Blood Cell # 0.02 Thou/mm3 (0.00-0.00); Nucleated Red Blood Cell % 0 /100 WBC (0); Platelet Count 240 Thou/mm3 (140-440); RDW Standard Deviation 49.8 fL (36.4-46.3); Red Blood Count 3.19 Miln/mm3 (4.00-5.20); White Blood Count 20.5 Thou/mm3 (3.6-11.0)
--- NOTE | 2025-03-16 03:44 | XR_ITS ---
Examination: Abdomen AP single view Technique: AP portable supine abdomen, single view Exam date and time: March 16, 2025, 0458 hours INDICATIONS: Abdominal distention today. FINDINGS: Peritoneal dialysis catheter in the pelvis Nonobstructive bowel gas pattern Moderate stool in the colon IMPRESSION: Nonobstructive bowel gas pattern
[2025-03-16 03:59] LABS: Alanine Aminotransferase 111 U/L (10-49); Albumin, Serum 3.4 gm/dL (3.4-4.8); Albumin/Globulin Ratio 1.5 (1.2-2.2); Alkaline Phosphatase 74 U/L (46-116); Anion Gap 12 (7-16); Aspartate Amino Transferase 48 U/L (0-34); BUN/Creatinine Ratio 14 Ratio (12-20); Bilirubin,Total 0.4 mg/dL (0.3-1.2); Blood Urea Nitrogen 53 mg/dL (9-23); Calcium 8.9 mg/dL (8.3-10.6); Calcium (Corrected) 9.4 mg/dL (8.5-10.1); Carbon Dioxide 26.6 mMol/L (20.0-31.0); Chloride 96 mMol/L (98-107); Creatinine (Component) 3.9 mg/dL (0.6-1.3); Estimated Creatinine Clearance 8.1 mL/min (>60); Globulin 2.3 gm/dL (2.3-3.5); Glucose 129 mg/dL (74-106); Magnesium 1.8 mg/dL (1.6-2.6); Osmolality,Calculated 286 (275-295); Phosphorous 4.5 mg/dL (2.4-5.1); Potassium 4.4 mMol/L (3.4-5.1); Procalcitonin 0.32 ng/ml (0.0-0.49); Sodium 135 mMol/L (136-145); Total Protein 5.7 gm/dL (5.7-8.2); eGFR 11 See Note
[2025-03-16 04:03] LABS: HIV (1&2) Antibody Rapid Non-Reactive
[2025-03-16] MEDS: guaiFENesin SYRUP 200 MG/10 ML UDC 100 MG PO (04:08)
--- NOTE | 2025-03-16 04:45 | PC.NURSE ---
Initiated 1:1 sitter due to pt removes High flow oxygen tubing a few times, restless.
[2025-03-16] MEDS: LEVOFLOXACIN 250 MG TABLET 750 MG PO (05:14)
[2025-03-16] MEDS: METHIMAZOLE 5 MG TABLET PO ×3 (05:14→21:29)
[2025-03-16 06:35] LABS: TSI, Thyroid Stimulating Ig* <89 % baseline (<140)
[2025-03-16] MEDS: BREZTRI 2 EA INH ×2 (06:52→23:11)
--- NOTE | 2025-03-16 08:00 | XR_ITS ---
Examination: AP chest single view Technique one AP portable upright chest single view Date and time: March 16, 2025 0833 hours Comparison March 16, 2025 INDICATIONS: Hypoxia today. FINDINGS: [id number] heart failure. Mild to moderate enlargement cardiac contour, prominent vascular congestion with perihilar edema. Consider superimposed bilateral pneumonia. Right internal jugular dialysis catheter tip SVC satisfactory position IMPRESSION: [id number] heart failure Consider superimposed bilateral pneumonia
[2025-03-16] MEDS: PANTOPRAZOLE 40 MG TABLET PO (09:17)
[2025-03-16] MEDS: DOCUSATE SOD 100 MG CAPSULE 200 MG PO (09:17)
[2025-03-16] MEDS: DILTIAZEM CD 120 MG CAPCR 240 MG PO (09:18)
--- NOTE | 2025-03-16 09:59 | PD.RESPRO ---
Documentation for date of: 03/16/25 Overnight event, rapid response called for increased work of breathing with increased heart rate 09/26/1928 SpO2 of 93% on high flow 30 and FiO2 21%. ABG unremarkable. Chest aspirate noted with diffuse vascular congestion, concern for superimposed pneumonia. Patient started on levofloxacin p.o (03/16/2025-03/23). Continue to monitor for any increased work of breathing including ARDS. Worsening CHF exacerbation in the setting of aortic stenosis and now appearing with increase fluid overloaded. Unable to diuresis, as patient is ESRD. Thyroperoxidase antibody less than 1. Pending ANCA, antiprotease, antimyeloperoxidase. Continue hemodialysis, next action plan for today. NET UF 0.8. Subjective Subjective Interval history: Patient was evaluated at bedside today. Patient had an episode last night with tachypnea and high blood pressure after her first hemodialsysis session. Patient stated she two small bowel movements, consisting of hard, pellet-like stool. Patient satting high 90s on HFNC 20L oxygen FiO2 35. Patient satting low 90s on HFNC 20L oxygen FiO2 25 in the afternoon. Satting high 90s HFNC 30L FiO2 30 in the evening. ICU consulted Dr. Griggs, appreciate recommendations. Plan to uptitrate methylprednisolone 60 mg QD to BID tonight. Started guaifenesin 200mg PO TID to loosen phlegm. Hemodialysis removed 800 mL. BP dropped to as low as 86/48. Exam Vital Signs Temp Pulse Resp BP Pulse Ox O2 Del Method O2 Flow Rate 98.0 F 99 22 H 145/75 H 97 High Flow Nasal Cannula 20 03/16/25 08:00 03/16/25 09:18 03/16/25 08:00 03/16/25 09:18 03/16/25 08:00 03/16/25 08:00 03/16/25 08:00 FiO2 35 03/16/25 08:00 Narrative Exam General Appearance: Alert & Oriented X3, well-nourished female who is lying in bed in mild distress due to respiratory failure. HEENT: Skull symmetrical and atraumatic. Conjunctivae pink and moist. Pupils equal, round, reactive to light and accommodation (PERRL). External ear without lesion or discharge. Straight, nares patient, mucosa pink, no discharge. No thyroid nodule appreciated. No cervical lymphadenopathy. Cardio: Normal Rate and Rhythm with S1 and S2 heart sounds. No murmurs or extra heart sounds auscultated. No bruits on carotid auscultation. No peripheral edema or cyanosis. Lungs: Symmetric with good expansion. Chest and back non-tender. Breath sounds vesicular with crackles and wheezing. Abdomen: Non-tender, Non-distended, Normal Reactive Bowel Sounds Neuro: Alert, cooperative, oriented to person, place, and time. Speech clear. CN grossly intact. Upper motor strength 5/5 and Lower motor strength 5/5. Sensation intact. Objective Labs 03/17/25 05:16 03/17/25 05:16 Labs: Laboratory Results - last 24 hr 03/11/25 03/15/25 03/16/25 05:39 10:55 03:09 WBC RBC Hgb Hct MCV MCH MCHC RDW Std Deviation Plt Count Neut % (Auto) Lymph % (Auto) [place] % (Auto) Eos % (Auto) Baso % (Auto) Neut # (Auto) Lymph # (Auto) [place] # (Auto) Eos # (Auto) Baso # (Auto) Immature Gran # (Auto) Absolute Nucleated RBC Immature Gran % Nucleated RBC % Puncture Site Left Radial ABG pH 7.41 ABG pCO2 46 ABG pO2 97 ABG HCO3 29 H ABG O2 Saturation 98 ABG Base Excess 4 H FiO2 21 Sodium Potassium Chloride Carbon Dioxide Anion Gap BUN Creatinine Estim Creat Clear Calc eGFR BUN/Creatinine Ratio Glucose Calculated Osmolality Lactic Acid Calcium Corrected Calcium Phosphorus Magnesium Total Bilirubin AST ALT Alkaline Phosphatase Troponin I 0.216 H* Total Protein Albumin Globulin Albumin/Globulin Ratio Procalcitonin Thyroid Stim Immunoglob <89 HIV 1&2 Antibody Rapid 03/16/25 03:16 WBC 20.5 H RBC 3.19 L Hgb 9.5 L Hct 27.8 L MCV 87 MCH 29.8 MCHC 34.2 RDW Std Deviation 49.8 H Plt Count 240 D Neut % (Auto) 90 H Lymph % (Auto) 3 L [place] % (Auto) 6 Eos % (Auto) 0 Baso % (Auto) 0 Neut # (Auto) 18.4 H Lymph # (Auto) 0.5 L [place] # (Auto) 1.3 H Eos # (Auto) 0.0 Baso # (Auto) 0.0 Immature Gran # (Auto) 0.29 H Absolute Nucleated RBC 0.02 H Immature Gran % 1 H Nucleated RBC % 0 Puncture Site ABG pH ABG pCO2 ABG pO2 ABG HCO3 ABG O2 Saturation ABG Base Excess FiO2 Sodium 135 L Potassium 4.4 D Chloride 96 L Carbon Dioxide 26.6 Anion Gap 12 BUN 53 H Creatinine 3.9 H D Estim Creat Clear Calc 8.1 L eGFR 11 L* BUN/Creatinine Ratio 14 Glucose 129 H Calculated Osmolality 286 Lactic Acid 1.4 Calcium 8.9 Corrected Calcium 9.4 Phosphorus 4.5 Magnesium 1.8 Total Bilirubin 0.4 AST 48 H ALT 111 H Alkaline Phosphatase 74 Troponin I Total Protein 5.7 Albumin 3.4 D Globulin 2.3 Albumin/Globulin Ratio 1.5 Procalcitonin 0.32 Thyroid Stim Immunoglob HIV 1&2 Antibody Rapid Non-Reactive ABG Interpretation ABG results: 03/09/25 03/09/25 03/10/25 07:50 18:22 09:05 ABG pH 7.45 ABG pCO2 39 ABG pO2 289 H ABG HCO3 27 H ABG O2 Saturation 101 H ABG Base Excess 2 VBG pH 7.39 7.49 VBG pCO2 49 37 D VBG pO2 70 H 68 H VBG Base Excess 4 H 5 H 03/11/25 03/12/25 03/16/25 10:09 09:44 03:09 ABG pH 7.40 7.41 ABG pCO2 44 46 ABG pO2 80 L D 97 ABG HCO3 27 H 29 H ABG O2 Saturation 95 98 ABG Base Excess 2 4 H VBG pH 7.45 VBG pCO2 40 VBG pO2 39 D VBG Base Excess 4 H Quality Measures Quality Measures none Advance care planning discussed with:: patient Assessment & Plan Assessment Current Active Medications: Generic Name Dose Route Start Last Admin Trade Name Freq PRN Reason Stop Dose Admin Acetaminophen 650 mg 03/09/25 14:41 03/15/25 23:16 Acetaminophen 325 Mg Tablet PO 04/08/25 14:40 650 mg Q6H PRN Administration Mild Pain(1-3) or Fever >100.3 Atorvastatin Calcium 40 mg 03/09/25 21:00 03/15/25 21:18 Atorvastatin Calcium 20 Mg Tablet PO 04/08/25 20:59 40 mg HS SABRINA Administration Dextrose 25 ml 03/12/25 08:16 Dextrose 50%-Water Inj 50 Ml Syringe IV 04/11/25 08:15 Q15MIN PRN BG 50-70 responsive npo pt Dextrose 50 ml 03/12/25 08:16 Dextrose 50%-Water Inj 50 Ml Syringe IV 04/11/25 08:15 Q15MIN PRN BG <50 OR BG <70 & pt unresponsive Diltiazem HCl 240 mg 03/10/25 09:00 03/16/25 09:18 Diltiazem Cd 120 Mg Capcr PO 04/09/25 08:59 240 mg QDAY SABRINA Administration Docusate Sodium 200 mg 03/15/25 09:00 03/16/25 09:17 Docusate Sod 100 Mg Capsule PO 04/14/25 08:59 200 mg QDAY SABRINA Administration Protocol Gabapentin 100 mg 03/11/25 12:15 03/12/25 11:28 Gabapentin 100 Mg Capsule PO 04/10/25 12:14 Not Given BID SABRINA Glucagon 1 mg 03/12/25 08:16 Glucagon Inj 1 Mg Vial IM Q15MIN PRN BG <70, and no IV access Heparin Sodium (Porcine) 3,300 unit 03/15/25 15:49 03/15/25 18:17 Heparin Sod Inj 1000 Unit/Ml Vial 10 Ml INDWELLCAT 03/29/25 15:48 3,300 unit X1 PRN Administration DIALYSIS Albumin Human 25 gm in 100 mls @ 100 mls/min 03/15/25 15:49 Albuminar-25 Ivpb IV 03/18/25 15:48 PRN PRN DIALYSIS Insulin Human Lispro 0 unit 03/12/25 11:30 03/16/25 09:23 Insulin Lispro (Admelog) 1 Unit/0.01 Ml Unit SC 04/11/25 11:29 Not Given AC [facility] Protocol Ipratropium [place] 0.5 mg 03/10/25 15:00 03/16/25 06:51 Ipratropium Rt 0.5 Mg/ 2.5 Ml Nebu INH 04/09/25 14:59 0.5 mg Q4HRRT SABRINA Administration Lactulose 20 gm 03/16/25 06:00 03/16/25 05:14 Lactulose Syrup 20 Gm/30 Ml Udc PO 04/15/25 05:59 Not Given TID [facility] Protocol Levalbuterol HCl 1.25 mg 03/10/25 15:00 03/16/25 06:51 Levalbuterol Rt 1.25 Mg/0.5 Ml Nebu INH 04/09/25 14:59 1.25 mg Q4HRRT SABRINA Administration Levalbuterol HCl 0.63 mg 03/11/25 22:53 03/14/25 16:21 Levalbuterol Rt 0.63 Mg/3 Ml Nebu INH 04/10/25 22:52 0.63 mg Q8HR PRN Administration WHEEZING Levofloxacin 250 mg 03/17/25 09:00 Levofloxacin 250 Mg Tablet PO 03/24/25 08:59 QDAY SABRINA Melatonin 3 mg 03/09/25 23:18 03/15/25 18:33 Melatonin 3 Mg Tablet PO 04/09/25 20:59 3 mg HS PRN Administration insomnia Methimazole 5 mg 03/15/25 08:45 03/16/25 05:14 Methimazole 5 Mg Tablet PO 04/14/25 08:44 5 mg TID SABRINA Administration Methylprednisolone Sodium Succinate 60 mg 03/15/25 09:00 03/16/25 09:29 Methylprednisolone Sod Succ 40 Mg Vial IVP 03/22/25 08:59 60 mg QDAY SABRIAN Administration Ondansetron HCl 4 mg 03/09/25 14:41 Ondansetron Inj 2 Mg/Ml Inj 2 Ml IVP 04/08/25 14:40 Q6H PRN NAUSEA OR VOMITING Protocol Pantoprazole Sodium 40 mg 03/10/25 09:00 03/16/25 09:17 Pantoprazole 40 Mg Tablet PO 04/09/25 08:59 40 mg QDAY SABRINA Administration Breztri (Budesonide, 2 ea 03/13/25 12:00 03/16/25 06:52 Glycopyrrolate And INH 04/12/25 11:59 2 puff Formoterol) BID SABRINA Administration Sennosides 1 tab 03/14/25 09:00 03/16/25 09:17 Senna Tablet PO 04/13/25 08:59 1 tab QDAY SABRINA Administration Protocol Sodium Chloride 3 ml 03/11/25 16:26 Sodium Chloride Rt Annika 0.9% 3 Ml Nebu INH 04/10/25 16:25 PRN PRN SOLN Plan Plan Patient is an 84-year-old female with a past medical history CHF HFpEF 55 to 60% (11/23/2024), systolic dysfunction, moderate PAH 55, moderate to severe with V-max 3.8, ESRD status post peritoneal dialysis dialysis, chronic asthma since early 20s, 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 #Acute hypoxic respiratory failure secondary to asthma exacerbation #Acute on Chronic Asthma exacerbation #Granulomatosis w/ Polyangiitis-formerly known as Antonia's Patient presented to the ED via EMS with a two day history of worsening shortness of breath. Patient's family noticed the patient wheezing while receiving dialysis and called EMS. While in the emergency room department, several episode of spO2 80s on nasal cannula-->transitioned to Bipap. While in ER, increased work of breathing, RR high 30s/40s with abdominal breathing noted, increase in FiO 10-->30. Repeat ABG pH 7.45, pO2 289, HC03 27-->decrease in FIO2 to 20. Daughter at bedside noted an URI several days ago and is concern this may have triggered current exacerbation. 03/11/2025 patient evaluated bedside, in acute respiratory distress, noted to have wheezing evidence of accessory muscles, trouble breathing, respiratory rate in the high 30s, saturating well on 20 L high flow nasal, oxygen, but increased work of breathing. Blood gas was ordered which showed pH and PO2 within normal range, given methylprednisone 125 mg x 1, ordered hour-long nebulization with albuterol, added budesonide nebulization. Consulted ICU/manager battery Dr. Arellano, who recommended that given patient's diagnosis of Antonia's granulomatosis in the past, and history of longstanding asthma which was relatively well-controlled until recently, noted ANCA and MPO/OR-3 antibodies. Agreed with IV steroids for now, but patient might require increasing doses if acute flare of Antonia's granulomatosis. Also considering possibility of cardiac asthma given, severe aortic stenosis leading to worsening of asthma. Patient might benefit from early aortic valve replacement as soon as clinical condition is stable. Also consider trial of hemodialysis for adequate ultrafiltration as peritoneal dialysis unable to remove adequate fluid. 03/12/2025 patient noted to have respiratory rate of 20 currently on high flow oxygen 20 L satting 96 with FiO2 21; ABG pO2 80 HCO3 27 pH 7.40 pCO2 44. Blood culture negative after 48 hours, MRSA screen negative, and Peritoneal Dialysis Culture pending. 03/13/2025 patient noted to have respiratory rate of 20 currently weaning high flow oxygen to 15 L satting between 95-100 FiO2 21 in the morning. Respiratory rate 18 with 13 L high flow oxygen satting 92 FiO2 21 in the afternoon. 03/14/2025 patient noted to have respiratory rate <20 currently weaning to 5 L oxygen satting between 93-97 FiO2 21 in the morning. Respiratory rate <20 weaned to 3L oxygen satting 98 FiO2 in the afternoon. Rapid response 03/15 202 patient noted to have respiratory rate of 30 with pulse rate 119 on HFNC 30L oxygen satting 94 FiO2 21 Patient noted to have respiratory rate <20 weaning to 4L oxygen satting high 90s FiO2 21 later in the morning and afternoon. 03/16 overnight even for tachypnea and high blood pressure peaking at 184/99 following first hemodialysis session 03/15. Satting high 90s on HFNC 20L oxygen FiO2. Satting low 90s on HFNC 20L oxygen FiO2 25 in the afternoon. Patient satting high 90s on HFNC 30 L FiO2 30 in the evening. ABG pH: 7.4 HCO3: 29 pO2 98 Plan: -Methylprednisolone 60 mg IVP BID -ICU consulted Dr. Griggs, recommend changing levalbuterol to every 2 hours with breathing treatments every 4 hours and cardioselective beta-pratik for aortic stenosis -Monitor oxygen levels -Levaquin 250 mg PO QD for possible pneumonia (03/17-03/24) -Started Guaifenesin 200 mg PO TID to loosen phlegm -Methylprednisone 60 mg IV Qday titrated to 60 mg BID -Continue Levalbuterol 1.25 mg INH Q4HRRT, Ipratropium 0.5 INH Q4HRRT -Discontinued Budenoside BIDRT -Azithromycin Course Completed (03/09/2025-03/12/2025) & Ceftriaxone 03/10/2025-03/11/2025 #Acute on Chronic Congestive Heart Failure, worsening #CHF HFpEF 60-65% (03/12/2025) #Mild Pulmonary Vascular Congestion #Moderate to Severe Aortic Stenosis, AV vmax 3.8 m #Severe Mitral Regurgitation #Moderate PAH, 55 mmHg Patient likely acute on chronic congestive heart failure this, may only be mild exacerbation as pulmonary vascular congestion was less prominent as compared to other episode. Previous CHF exacerbation BNP 1691.Acute on chronic CHF exacerbation likely triggered by asthma exacerbation. Diagnostics: Echo (03/12/2025): Normal LV size and function. EF 60-65%. Diastolic dysfunction present but cannot be graded due to arrhythymia.Normal RV size and function. Estimated RVSP moderately elevated RVSP 50-55 mm hg.Moderate to Severe . AV vmax 3.8 m/s, Mean PG 38 mm hg. LATRICE 0.5 sq cm. -BNP 03/09 345; 03/15 1608 -Chest x-ray (03/10/2025): Mild chronic heart failure pattern, prominent vascular congestion-overall mild chornic heart failure -Chest x-ray (03/16/2025): Chronic heart failure pattern with vascular congestion, possible repeat CXR Plan: -Patient started on bipap -Strict Ins and Outs -Fluid Restrictions 1800 -Oxygen support -Cardiology consult Dr. Campa, recommend changing to hemodialysis from peritoneal dialysis #ESRD, Hemodialysis #Periotoneal Dialysis, Stopped #ESRD secondary to Granulomatosis Per patient history, follows Dr. Amezcua and Dr. Coley. Patient develoepd ESRD several years ago likely secondary to Granulomatosis. Peritoneal dialysis, daily. Consult nephrology for scheduled daily dialysis. Plan -Placement of tunnel dialysis catheter completed today with hemodialysis session -Family would like to proceed with HD, NPO after-night, and ordered added. -Strict in and outs. -Stop Peritoneal dialysis -Avoid nephrotoxins, consider renal dosing -Nephrology Consulted, Dr. Amezcua, appreciate recommendations. -Peritoneal fluid culture: no growth #Constipation Patient had not had a bowel movement in 5 days, prior to hard, pellet-like stools this morning. Patient has been given senna, docusate, lactulose, glycerin. KUB negative for obstructive patter. Plan: -Oil enema, followed by possible fecal disimpaction if necessary #Concern for Hyperthyroidism Noted suppressed TSH and elevated T4 levels, limited utility of thyroid function test during acute illness and hospitalization. the patient will eventually require repeat thyroid function test once discharged to confirm thyroid disorders. Also patient has longstanding history of MAT likely secondary to pulmonary disorder, less likely influenced by thyroid. -Thyroid US: bilateral vascular thyroid nodules, consider fine needle aspiration; 03/15 TSH 0.02 T4 1.62 -TSI/TSH-R Antibodies pending; 03/11 TPO 1 -Repeat thyroid function testing in 3 to 4 weeks after discharge, and follow-up with tectonophysicist -Continue methimazole 5 mg PO TID #MAT #Atrial Fibrillation, less likely #EKG Abnormalities Patient has a past medical history of previous reported Atrial Fibrillation, per daughter, was told it was less likely atrial fibrillation, decision was made for no Eliquis and only Plavix on board for history of CVA. This EKG read A.fib w/ rvr but not all leads irregular and some noted with possible p waves. r waves present, no deep q waves noted. V1/V2 possible t wave abnormalities. 03/14/2025 EKG ordered, noted HR 100 likely MAT, likely secondary to levalbuterol. Consider decreasing Levalbuterol doses as patient's work of breathing improves. Plan -Diltiazem 240 mg PO scheduled -AVOID BETA BLOCKERS GIVEN ASTHMA EXACERBATION -Cardiology consult completed, possible uptration to Diltiazem 360 mg PO QD if rate is not well controlled, anti-coagulation not required #Mild Transaminitis #Possible Hepatopulmonary Syndrome Patient's AST remaining elevated; ALT trending upwards Pertinent labs: 03/09 AST/ALT 46/46; 03/11: 37/63; 03/14: 36/105; 03/16: 48/111 Plan: Monitor and trend liver enzymes if concern, consider hepatitis panel Possible hepatopulmonary syndrome, due to potential fluid overload seen on CXR 03/16 #Mild Troponemia #NSTEMI, type II likely demand ischemia Mild elevation in Troponin likely in the setting of demand ischemia from asthma exacerbation. Denied chest pain, palpitations, or chest pressure. No st elevation noted. Plan -Repeat Troponin 03/10 peaked at 0.141. #Single Episode of Hematemsis #Normocytic Normochromic Anemia Pertinent lab values 03/15 MCV 84 Hgb 9.8 Hct 27.6 RBC 3.27 03/16 MCV 87 Hgb 9.5 Hct 27.8 RBC 3.19 Given past medical history of GERD, consider gastric ulcers-given reported coffee ground emesis vs Granulomatosis flare vs lower GI bleed. Plan: -Monitor hgb >7 goal -Consider occult blood AM, if worsening drop -Consider gastroenterology consult with Dr. Abraham, if repeat episodes of coffee ground emesis #History of CVA Past medical history of CVA Plan -plavix given coffee ground emesis. #GERD #Gastritis (?) Per the patient's daughter, the patient recently experienced coffee ground emesis w/ history of GERD. Plan: Continue Pantoprazole 40 mg PO QD-->Transition to Pantoprazole 40 mg IV BID (AM) #history of Fracture Neck of Right Femur Patient underwent surgical repair of closed right hip neck fracture on 12/01/[address] Lee Plan: Monitor for possible rehabilitation DVT prophylaxis: No DVT prophylaxis in setting of suspected GI bleed and anemia GI prophylaxis: IV Protonix qday Diet: Renal Diet Lines: Peripheral IV Code status: Full code Case discussed with attending physician Dr. Martinez and resident Dr. Angela Sena MS-4 - The patient's plan was discussed with attending Dr. Juan Miller MD PGY2 Internal Medicine Attending Provider Attestation/Addendum 84-year-old female with multiple comorbidities including heart failure with preserved EF with EF 55-60%, severe aortic stenosis with V-max 3.8, pulmonary hypertension, granulomatosis with polyangiitis with subsequent end-stage renal disease on peritoneal dialysis history of ischemic CVA with right-sided hemiparesis, hypertension, hyperlipidemia presented to the ER with shortness of breath found to have acute hypoxic respiratory failure multifactorial including asthma exacerbation and fluid overload state. Initially, patient did require BiPAP and advised to continue IV steroids, IV antibiotic therapy and plan for peritoneal dialysis. Furthermore, patient also has moderate to severe aortic stenosis with pulmonary arterial hypertension and plan to consult cardiology. Overnight, patient respiratory status improving currently on 10 L oxy mask. Discussed case with pulmonary and nephrology team and plan for a TDC placement for possible hemodialysis initiation. In addition, plan to continue IV steroids, IV antibiotic and peritoneal dialysis. Appreciate cardiology, pulmonary and nephrology input. I reviewed above note and agree with findings and plans. I have also personally examined the patient with medicine team and went over assessment and plan with medical team including agriculture intern and resident physician.
--- NOTE | 2025-03-16 12:45 | PD.RESCONSUL ---
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 Granulomatosis status post peritoneal dialysis, granulomatous polyangiitis diagnosed 25 years ago, cerebrovascular accident status post right-sided deficits, multifocal atrial tachycardia, hypertension, hyperlipidemia, osteoarthritis, osteoporosis and GERD who presented to [facility] emergency department on 03/09/2025 with a chief complaint of shortness of breath. Patient was admitted to the hospital for asthma exacerbation, with the progression of hospital course patient was noted to be fluid overloaded progressively, continue to have increased work of breathing, not tolerating peritoneal dialysis well was followed by nephrology and cardiology. As patient failed peritoneal dialysis, it was discussed with patient's daughter possibility of starting patient on hemodialysis to which the daughter agreed after discussing extensively with hospitalist team, nephrology and cardiology. Patient was tolerating hemodialysis well, received first session of hemodialysis yesterday 03/16 had about 1.0 L removed. Patient otherwise received peritoneal dialysis on 03/09, 03/10, 03/12 and 03/13, having more and more difficulty with peritoneal dialysis and seems to be fluid overloaded currently even post transition to hemodialysis yesterday. Hence ICU team was consulted. 03/16/2025: Patient seen examined at bedside, currently seems to have increased work of breathing seems to be in acute distress. On physical exam bilateral crackles noted, patient also has inspiratory wheezing, 2+ dependent edema noted on thighs, trace edema bilateral lower extremities. Patient is currently fluid overloaded that seems to be the primary issue for which we recommend hemodialysis today and to improve work of breathing patient should be placed on BiPAP. For underlying asthma recommend increasing steroid dose to 60 twice daily and changing as needed levalbuterol to every 2 hour along with the scheduled breathing treatments every 4 hours. Patient does have severe aortic stenosis, there is low suspicion of aortic stenosis possibly causing flash pulmonary edema, for which we recommend cardioselective beta-pratik example bisoprolol which can improve diastolic filling and assist with improving symptoms from severe aortic stenosis. 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 Exam Vital Signs Temp Pulse Resp BP Pulse Ox O2 Del Method O2 Flow Rate 98.0 F 104 H 20 145/75 H 95 High Flow Nasal Cannula 20 03/16/25 08:00 03/16/25 10:33 03/16/25 10:33 03/16/25 09:18 03/16/25 10:33 03/16/25 08:00 03/16/25 10:33 FiO2 25 03/16/25 10:33 Narrative Exam General: Alert and oriented x3. In no acute distress. Eyes: Pupils are equal and reactive to light bilaterally. HEENT: Atraumatic, normocephalic. No JVD noted. Mucosa moist. Cardiovascular: Normal S1 and soft S2, Tachycardic, 3/6 ejection systolic murmur heard at aortic area, 3/6 holosystolic murmur heard on the mitral area and parasternal area, trace peripheral pitting edema noted, 2+ pitting edema in her thighs. Respiratory: Mild respiratory distress on high flow nasal cannula, use of accessory muscles appreciated, bilateral air entry present, wheezing noted. Significant crackles throughout the lung mason. Abdomen: Firm, tender on palpation, mildly distended. Skin: No rash. Warm to touch. Musculoskeletal: No gross injuries. Able to move all 4 extremities. Neuro: Alert and oriented x3. No focal neuro deficits. Psych: Frustrated Results Labs 03/16/25 03:16 03/16/25 03:16 Labs: Short CBC 03/16/25 Range/Units 03:16 WBC 20.5 H (3.6-11.0) Thou/mm3 Hgb 9.5 L (12.0-16.0) g/dL Hct 27.8 L (36.0-46.0) % Plt Count 240 D (140-440) Thou/mm3 BMP 03/16/25 03:16 Sodium 135 L Potassium 4.4 D Chloride 96 L Carbon Dioxide 26.6 BUN 53 H Creatinine 3.9 H D Glucose 129 H Calcium 8.9 Liver Function 03/16/25 Range/Units 03:16 Total Bilirubin 0.4 (0.3-1.2) mg/dL AST 48 H (0-34) U/L ALT 111 H (10-49) U/L Alkaline Phosphatase 74 (46-116) U/L Albumin 3.4 D (3.4-4.8) gm/dL ABG Interpretation ABG results: 03/09/25 03/09/25 03/10/25 07:50 18:22 09:05 ABG pH 7.45 ABG pCO2 39 ABG pO2 289 H ABG HCO3 27 H ABG O2 Saturation 101 H ABG Base Excess 2 VBG pH 7.39 7.49 VBG pCO2 49 37 D VBG pO2 70 H 68 H VBG Base Excess 4 H 5 H 03/11/25 03/12/25 03/16/25 10:09 09:44 03:09 ABG pH 7.40 7.41 ABG pCO2 44 46 ABG pO2 80 L D 97 ABG HCO3 27 H 29 H ABG O2 Saturation 95 98 ABG Base Excess 2 4 H VBG pH 7.45 VBG pCO2 40 VBG pO2 39 D VBG Base Excess 4 H Quality Measures Quality Measures none Advance care planning discussed with:: patient and child Medications Home Medications and Allergies Home Medications ?Medication ?Instructions ?Recorded ?Confirmed ?Type atorvastatin 40 mg tablet 40 mg PO QDAY 08/15/19 03/11/25 History acetaminophen 325 mg tablet 650 mg PO Q6H PRN fever or pain 03/11/25 03/11/25 History (Tactinal) diltiazem HCl 240 mg 240 mg PO DAILY 03/11/25 03/11/25 History capsule,extended release 24 hr Allergies Allergy/AdvReac Type Severity Reaction Status Date / Time shrimp Allergy Severe Wheezing Verified 01/01/25 10:01 NSAIDS (Non-Steroidal Allergy Intermediate Swelling Verified 01/01/25 10:01 Anti-Inflamma Penicillins Allergy Intermediate Rash Verified 01/01/25 10:01 Visit Medications Acetaminophen (Acetaminophen 325 Mg Tablet) 650 mg PO Q6H PRN PRN Reason: Mild Pain(1-3) or Fever >100.3 Stop: 04/08/25 14:40 Last Admin: 03/15/25 23:16 Dose: 650 mg Atorvastatin Calcium (Atorvastatin Calcium 20 Mg Tablet) 40 mg PO HS [facility] Stop: 04/08/25 20:59 Last Admin: 03/15/25 21:18 Dose: 40 mg Dextrose (Dextrose 50%-Water Inj 50 Ml Syringe) 25 ml IV Q15MIN PRN PRN Reason: BG 50-70 responsive npo pt Stop: 04/11/25 08:15 Dextrose (Dextrose 50%-Water Inj 50 Ml Syringe) 50 ml IV Q15MIN PRN PRN Reason: BG <50 OR BG <70 & pt unresponsive Stop: 04/11/25 08:15 Diltiazem HCl (Diltiazem Cd 120 Mg Capcr) 240 mg PO QDAY [facility] Stop: 04/09/25 08:59 Last Admin: 03/16/25 09:18 Dose: 240 mg Docusate Sodium (Docusate Sod 100 Mg Capsule) 200 mg PO QDAY [facility]; Protocol Stop: 04/14/25 08:59 Last Admin: 03/16/25 09:17 Dose: 200 mg Gabapentin (Gabapentin 100 Mg Capsule) 100 mg PO BID [facility] Stop: 04/10/25 12:14 Last Admin: 03/12/25 11:28 Dose: Not Given Glucagon (Glucagon Inj 1 Mg Vial) 1 mg IM Q15MIN PRN PRN Reason: BG <70, and no IV access Guaifenesin (Guaifenesin Syrup 200 Mg/10 Ml Udc) 200 mg PO TID [facility]; Protocol Stop: 04/15/25 13:59 Heparin Sodium (Porcine) (Heparin Sod Inj 1000 Unit/Ml Vial 10 Ml) 3,300 unit INDWELLCAT X1 PRN PRN Reason: DIALYSIS Stop: 03/29/25 15:48 Last Admin: 03/15/25 18:17 Dose: 3,300 unit Albumin Human (Albuminar-25 Ivpb) 25 gm in 100 mls @ 100 mls/min IV PRN PRN PRN Reason: DIALYSIS Stop: 03/18/25 15:48 Insulin Human Lispro (Insulin Lispro (Admelog) 1 Unit/0.01 Ml Unit) 0 unit SC AC [facility]; Protocol Stop: 04/11/25 11:29 Last Admin: 03/16/25 11:51 Dose: Not Given Ipratropium [place] (Ipratropium Rt 0.5 Mg/ 2.5 Ml Nebu) 0.5 mg INH Q4HRRT [facility] Stop: 04/09/25 14:59 Last Admin: 03/16/25 10:31 Dose: 0.5 mg Lactulose (Lactulose Syrup 20 Gm/30 Ml Udc) 20 gm PO TID [facility]; Protocol Stop: 04/15/25 05:59 Last Admin: 03/16/25 05:14 Dose: Not Given Levalbuterol HCl (Levalbuterol Rt 1.25 Mg/0.5 Ml Nebu) 1.25 mg INH Q4HRRT [facility] Stop: 04/09/25 14:59 Last Admin: 03/16/25 10:31 Dose: 1.25 mg Levalbuterol HCl (Levalbuterol Rt 0.63 Mg/3 Ml Nebu) 0.63 mg INH Q8HR PRN PRN Reason: WHEEZING Stop: 04/10/25 22:52 Last Admin: 03/14/25 16:21 Dose: 0.63 mg Levofloxacin (Levofloxacin 250 Mg Tablet) 250 mg PO QDAY [facility] Stop: 03/24/25 08:59 Melatonin (Melatonin 3 Mg Tablet) 3 mg PO HS PRN PRN Reason: insomnia Stop: 04/09/25 20:59 Last Admin: 03/15/25 18:33 Dose: 3 mg Methimazole (Methimazole 5 Mg Tablet) 5 mg PO TID [facility] Stop: 04/14/25 08:44 Last Admin: 03/16/25 05:14 Dose: 5 mg Methylprednisolone Sodium Succinate (Methylprednisolone Sod Succ 40 Mg Vial) 60 mg IVP BID [facility] Stop: 03/23/25 20:59 Ondansetron HCl (Ondansetron Inj 2 Mg/Ml Inj 2 Ml) 4 mg IVP Q6H PRN; Protocol PRN Reason: NAUSEA OR VOMITING Stop: 04/08/25 14:40 Pantoprazole Sodium (Pantoprazole 40 Mg Tablet) 40 mg PO QDAY SABRINA Stop: 04/09/25 08:59 Last Admin: 03/16/25 09:17 Dose: 40 mg Breztri (Budesonide, Glycopyrrolate And Formoterol) 2 ea INH BID [facility] Stop: 04/12/25 11:59 Last Admin: 03/16/25 06:52 Dose: 2 puff Sennosides (Senna Tablet) 1 tab PO QDAY [facility]; Protocol Stop: 04/13/25 08:59 Last Admin: 03/16/25 09:17 Dose: 1 tab Sodium Chloride (Sodium Chloride Rt Annika 0.9% 3 Ml Nebu) 3 ml INH PRN PRN PRN Reason: SOLN Stop: 04/10/25 16:25 Discontinued Medications Hydrocodone Bitart/Acetaminophen (Hydrocodone/Apap 5/325 Tablet) 1 tab PO Q4HR PRN PRN Reason: PAIN SCALE 4-10(Mod-Sev Stop: 03/14/25 14:40 Albuterol (Albuterol Rt 2.5 Mg/3 Ml Nebu) 5 mg INH X1 ONE Stop: 03/09/25 07:47 Last Admin: 03/09/25 08:32 Dose: 5 mg Albuterol (Albuterol Rt 2.5 Mg/0.5 Ml Nebu) 15 mg INH X1 ONE Stop: 03/11/25 10:23 Last Admin: 03/11/25 10:35 Dose: 15 mg Albuterol (Albuterol Rt 2.5 Mg/0.5 Ml Nebu) 5 mg INH Q6HRRT [facility] Stop: 04/10/25 18:59 Last Admin: 03/11/25 21:15 Dose: Not Given Albuterol (Albuterol Rt 2.5 Mg/0.5 Ml Nebu) 20 mg INH X1 ONE Stop: 03/11/25 16:27 Last Admin: 03/16/25 07:14 Dose: Not Given Budesonide (Budesonide Rt 0.5 Mg/2 Ml Nebu) 1 mg INH BIDRT [facility] Stop: 04/10/25 09:59 Last Admin: 03/14/25 06:11 Dose: 1 mg Clopidogrel Bisulfate (Clopidogrel Bisulfate 75 Mg Tablet) 75 mg PO QDAY [facility] Stop: 04/09/25 08:59 Last Admin: 03/14/25 09:17 Dose: 75 mg Diltiazem HCl (Diltiazem Cd 120 Mg Capcr) 240 mg PO X1 ONE Stop: 03/09/25 07:47 Last Admin: 03/09/25 09:41 Dose: 240 mg Diphenhydramine HCl (Diphenhydramine Inj 50 Mg/Ml Vial) 12.5 mg IVP X1 ONE Stop: 03/09/25 16:25 Last Admin: 03/09/25 16:49 Dose: 12.5 mg Famotidine (Famotidine Inj 10 Mg/Ml Vial 2 Ml) 20 mg IVP X1 ONE Stop: 03/09/25 07:47 Last Admin: 03/09/25 08:15 Dose: 20 mg Fentanyl Citrate (Fentanyl Cit Inj 50 Mcg/Ml Amp 2ml) 37.5 mcg IVP X1 ONE Stop: 03/15/25 14:09 Last Admin: 03/15/25 14:08 Dose: 37.5 mcg Gabapentin (Gabapentin 100 Mg Capsule) 100 mg PO X1 ONE Stop: 03/15/25 18:56 Last Admin: 03/15/25 21:47 Dose: 100 mg Glycerin (Glycerin, Adult 1 Ea Supp) 1 each NE X1 ONE Stop: 03/15/25 18:46 Last Admin: 03/15/25 21:19 Dose: 1 each Guaifenesin (Guaifenesin Syrup 200 Mg/10 Ml Udc) 100 mg PO X1 ONE; Protocol Stop: 03/16/25 03:29 Last Admin: 03/16/25 04:08 Dose: 100 mg Heparin Sodium (Beef Lung) (Heparin Sod Lock Syr 100 Unit/Ml) 500 unit STFIELD X1 ONE Stop: 03/15/25 14:09 Last Admin: 03/15/25 14:10 Dose: 500 unit Heparin Sodium (Porcine) (Heparin Sod Inj 5000 Unit/Ml Vial) 5,000 unit SC BID [facility] Stop: 03/23/25 20:59 Last Admin: 03/14/25 21:08 Dose: 5,000 unit Hydroxyzine HCl (Hydroxyzine Hcl 25 Mg Tablet) 25 mg PO HS [facility] Stop: 04/08/25 20:59 Last Admin: 03/12/25 21:23 Dose: Not Given Sodium Chloride (Ns) 500 mls @ 999 mls/hr IV .Q31M ONE Stop: 03/09/25 08:16 Last Infusion: 03/09/25 08:19 Dose: 0 mls/hr Magnesium Sulfate (Magnesium Sulfate Ivpb) 2 gm in 50 mls @ 25 mls/hr IV X1 ONE Stop: 03/09/25 16:48 Last Infusion: 03/09/25 16:52 Dose: Infused Magnesium Sulfate (Magnesium Sulfate Ivpb) 2 gm in 50 mls @ 25 mls/hr IV X1 ONE Stop: 03/09/25 20:37 Last Admin: 03/09/25 19:17 Dose: 25 mls/hr Azithromycin 500 mg/ Sodium (Chloride) 250 mls @ 250 mls/hr IV QDAY [facility] Stop: 03/12/25 08:59 Last Admin: 03/11/25 09:42 Dose: 250 mls/hr Ceftriaxone Sodium/Dextrose (Rocephin/D5w 1gm Iv Premix) 1 gm in 50 mls @ 100 mls/hr IV QDAY [facility] Stop: 03/17/25 07:59 Last Admin: 03/11/25 09:24 Dose: 100 mls/hr Magnesium Sulfate (Magnesium Sulfate Ivpb) 2 gm in 50 mls @ 25 mls/hr IV X1 ONE Stop: 03/11/25 12:16 Last Admin: 03/11/25 11:13 Dose: 25 mls/hr Magnesium Sulfate (Magnesium Sulfate Ivpb) 2 gm in 50 mls @ 150 mls/hr IV X1 ONE Stop: 03/11/25 11:49 Last Admin: 03/11/25 11:24 Dose: 150 mls/hr Magnesium Sulfate (Magnesium Sulfate Ivpb) 2 gm in 50 mls @ 25 mls/hr IV X1 ONE Stop: 03/14/25 18:14 Last Admin: 03/14/25 17:42 Dose: 25 mls/hr Ipratropium [place] (Ipratropium Rt 0.5 Mg/ 2.5 Ml Nebu) 0.5 mg INH Q6HR PRN PRN Reason: SHORTNESS OF BREATH Stop: 04/08/25 16:23 Last Admin: 03/09/25 18:09 Dose: 0.5 mg Ipratropium [place] (Ipratropium Rt 0.5 Mg/ 2.5 Ml Nebu) 0.5 mg INH Q6HR SAB[facility]INA Stop: 04/09/25 00:00 Ipratropium [place] (Ipratropium Rt 0.5 Mg/ 2.5 Ml Nebu) 0.5 mg INH Q6HRRT [facility] Stop: 04/09/25 00:59 Last Admin: 03/10/25 06:15 Dose: 0.5 mg Ipratropium [place] (Ipratropium Rt 0.5 Mg/ 2.5 Ml Nebu) 0.5 mg INH X1 ONE Stop: 03/10/25 11:57 Last Admin: 03/10/25 12:34 Dose: 0.5 mg Ipratropium [place] (Ipratropium Rt 0.5 Mg/ 2.5 Ml Nebu) 0.5 mg INH X1 ONE Stop: 03/11/25 09:52 Last Admin: 03/11/25 10:35 Dose: 0.5 mg Lactulose (Lactulose Syrup 20 Gm/30 Ml Udc) 10 gm PO QDAY [facility]; Protocol Stop: 04/13/25 08:59 Last Admin: 03/14/25 09:16 Dose: 10 gm Lactulose (Lactulose Syrup 20 Gm/30 Ml Udc) 20 gm PO BID [facility]; Protocol Stop: 04/14/25 08:59 Last Admin: 03/16/25 03:13 Dose: 20 gm Levalbuterol HCl (Levalbuterol Rt 1.25 Mg/0.5 Ml Nebu) 1.25 mg INH X1 ONE Stop: 03/09/25 12:15 Last Admin: 03/09/25 13:16 Dose: 1.25 mg Levalbuterol HCl (Levalbuterol Rt 1.25 Mg/0.5 Ml Nebu) 1.25 mg INH Q6HR PRN PRN Reason: WHEEZING Stop: 04/08/25 16:23 Last Admin: 03/09/25 18:09 Dose: 1.25 mg Levalbuterol HCl (Levalbuterol Rt 1.25 Mg/0.5 Ml Nebu) 1.25 mg INH Q6HR [facility] Stop: 04/09/25 00:00 Levalbuterol HCl (Levalbuterol Rt 1.25 Mg/0.5 Ml Nebu) 1.25 mg INH Q6HRRT [facility] Stop: 04/09/25 00:59 Last Admin: 03/10/25 06:15 Dose: 1.25 mg Levofloxacin (Levofloxacin 250 Mg Tablet) 750 mg PO X1 ONE Stop: 03/16/25 04:31 Last Admin: 03/16/25 05:14 Dose: 750 mg Lidocaine HCl (Lidocaine Inj Pf 1% 30 Ml Vial) 11 ml INFL X1 ONE Stop: 03/15/25 14:09 Last Admin: 03/15/25 14:10 Dose: 11 ml Methimazole (Methimazole 5 Mg Tablet) 5 mg PO TID [facility] Stop: 04/13/25 13:59 Last Admin: 03/14/25 21:07 Dose: 5 mg Methylprednisolone Sodium Succinate (Methylprednisolone Sod Succ 62.5 Mg/Ml 2ml Vial) 125 mg IVP X1 ONE Stop: 03/09/25 07:47 Last Admin: 03/09/25 08:13 Dose: 125 mg Methylprednisolone Sodium Succinate (Methylprednisolone Sod Succ 40 Mg Vial) 120 mg IVP X1 ONE Stop: 03/09/25 14:49 Last Admin: 03/09/25 14:57 Dose: 120 mg Methylprednisolone Sodium Succinate (Methylprednisolone Sod Succ 40 Mg Vial) 60 mg IVP TID [facility] Stop: 03/17/25 05:59 Last Admin: 03/11/25 05:08 Dose: 60 mg Methylprednisolone Sodium Succinate (Methylprednisolone Sod Succ 40 Mg Vial) 60 mg IVP BID [facility] Stop: 03/18/25 20:59 Last Admin: 03/14/25 09:16 Dose: 60 mg Methylprednisolone Sodium Succinate (Methylprednisolone Sod Succ 40 Mg Vial) 125 mg IVP X1 ONE Stop: 03/11/25 09:52 Last Admin: 03/11/25 10:16 Dose: 125 mg Methylprednisolone Sodium Succinate (Methylprednisolone Sod Succ 62.5 Mg/Ml 2ml Vial) 125 mg IVP X1 ONE Stop: 03/11/25 10:16 Last Admin: 03/11/25 10:21 Dose: Not Given Methylprednisolone Sodium Succinate (Methylprednisolone Sod Succ 40 Mg Vial) 60 mg IVP QDAY [facility] Stop: 03/22/25 08:59 Last Admin: 03/16/25 09:29 Dose: 60 mg Methylprednisolone Sodium Succinate (Methylprednisolone Sod Succ 40 Mg Vial) 60 mg IVP X1 ONE Stop: 03/16/25 00:59 Last Admin: 03/16/25 02:09 Dose: 60 mg Pantoprazole Sodium (Pantoprazole Inj 40 Mg Vial) 40 mg IVP X1 ONE Stop: 03/09/25 07:47 Last Admin: 03/09/25 08:10 Dose: 40 mg Polyethylene Glycol (Polyethylene Glycol 17 Gm Packet) 17 gm PO QDAY [facility] Stop: 04/12/25 16:29 Last Admin: 03/13/25 16:43 Dose: 17 gm Potassium Chloride (Potassium Chloride 10% 20 Meq/15 Ml Udc) 40 meq PO X1 ONE Stop: 03/14/25 16:15 Last Admin: 03/14/25 17:41 Dose: 40 meq Sennosides (Senna Tablet) 1 tab PO QDAY [facility]; Protocol Stop: 04/09/25 08:59 Last Admin: 03/13/25 08:27 Dose: 1 tab Sennosides (Senna Tablet) 2 tab PO QDAY [facility]; Protocol Stop: 04/13/25 08:59 Sennosides (Senna Tablet) 1 tab PO X1 ONE; Protocol Stop: 03/13/25 17:16 Last Admin: 03/13/25 17:33 Dose: 1 tab Sodium Chloride (Sodium Chloride Rt Annika 0.9% 3 Ml Nebu) 3 ml INH X1 ONE Stop: 03/09/25 12:16 Last Admin: 03/09/25 13:17 Dose: 3 ml Sodium Chloride (Sodium Chloride Rt Annika 0.9% 3 Ml Nebu) 3 ml INH PRN PRN PRN Reason: SOLN Stop: 04/08/25 16:23 Last Admin: 03/09/25 18:09 Dose: 3 ml Sucralfate (Sucralfate Susp 1 Gm/10 Ml Udc) 1 gm PO X1 ONE Stop: 03/09/25 07:47 Last Admin: 03/09/25 09:41 Dose: 1 gm Tuberculin PPD (Tuberculin Ppd Inj 5 Unit/0.1 Ml Dose) 5 unit ID X1 ONE Stop: 03/15/25 08:31 Last Admin: 03/15/25 18:22 Dose: Not Given Tuberculin PPD (Tuberculin Ppd Inj 5 Unit/0.1 Ml Dose) 5 unit ID X1 ONE Stop: 03/15/25 19:46 Last Admin: 03/15/25 19:49 Dose: 5 unit Assessment & Plan Plan Summary: Ms Lee is a 84-year-old female with past medical history of heart failure preserved ejection fraction, EF of 60 to 65%, diastolic dysfunction, moderate pulmonary arterial hypertension, moderate to severe aortic stenosis V-max 3.8, 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 Patient eventually noted to be fluid overloaded, ICU consulted for increased work of breathing and respiratory distress. #Acute respiratory distress, increased work of breathing #Acute hypoxic respiratory failure secondary to #Fluid overload #Acute decompensated heart failure, HFpEF EF 60 to 65%, diastolic dysfunction #Severe aortic stenosis, V-max 3.8 #End-stage renal disease secondary to Antonia's new onset hemodialysis 03/15 #Failed peritoneal dialysis #Asthma exacerbation -With the progression of hospital course patient was noted to be fluid overloaded progressively, continue to have increased work of breathing, not tolerating peritoneal dialysis well -Failed peritoneal dialysis received first session of hemodialysis yesterday 03/16 had about 1.0 L removed. -received peritoneal dialysis on 03/09, 03/10, 03/12 and 03/13 -ICU consulted for acute respiratory distress, and work of breathing -Bilateral crackles noted, patient also has inspiratory wheezing, 2+ dependent edema noted on thighs, trace edema bilateral lower extremities. -Elevated BNP 1608-03/15 compared to 345-03/09, ABG 03/16 3 AM shows pH 7.41, NZT000, venous bicarb 26.6 Recommendations: - For fluid overload status - Hemodialysis today, follow-up with nephrology - Start patient on BiPAP as patient is to be clinically fluid overloaded rather than high flow nasal cannula - For asthma exacerbation - Continue levalbuterol and ipratropium every 4 hours, added as needed duonebs every 2 hours - Increase methylprednisolone to 60mg twice daily - For severe aortic stenosis, there is suspicion of aortic stenosis possibly causing pulmonary edema state of fluid overload, ?LVOT obstruction -We recommend low-dose cardioselective beta-pratik eg bisoprolol, otherwise cardiology is following patient on Cardizem which can be downtitrated. #History of CVA, 15 years ago, some right-sided deficits #Severe posterior MAC, anterior MAC with mitral regurgitation #NSTEMI type II, type II troponin #Multifocal atrial tachycardia #Hyperlipidemia #Constipation, resolving #Transaminitis #Hematemesis #GERD #Gastritis #?Hyperthyroidism #Anemia #History of right femoral neck fracture #Osteoarthritis #Osteoporosis #Moderate pulmonary artery hypertension -Management as per primary team Case discussed with Attending Dr. Griggs. Misha Mcgowan MD Interal Medicine PGY2 Disclaimer: This note was dictated by speech recognition. Minor errors in electric meter reader may be present due to voice recognition software.
[2025-03-16] MEDS: guaiFENesin SYRUP 200 MG/10 ML UDC PO ×2 (13:21→21:28)
--- NOTE | 2025-03-16 14:19 | PC.SS ---
Rounding note: ICU is consulting on this patient. Possible need for BiPAP. Current d/c plan [facility].
--- NOTE | 2025-03-16 14:20 | PD.RESPRO ---
Documentation for date of: 03/16/25 Subjective Subjective Interval history: Overnight events: Patient had drop of O2 saturation to 85% on room air, initiated oxygen delivery via nasal cannula at 2 L oxygen, resulting in 98% O2 sat. Patient was put back on HFNC. Sitter placed due to the patient removing HFNC. The patient had a complete hemodialysis session yesterday after RIJ tunnel catheter placement. Dialysis duration lasted 3 hours with net fluid removal of 1 L. Patient reported no pain after completing dialysis. Chest x-ray was ordered earlier this morning which showed mild to moderate heart failure and suggestion of superimposed bilateral pneumonia. Patient was started on levofloxacin 250 mg today. Patient was seen and examined at bedside. AM vitals and labs reviewed. BUN 53, creatinine 3.9, GFR 11. WBC increased to 20.5 from 18.7 and potassium increased from 3.8 to 4.4. Ins/outs 440/0. During today's visit the patient was breathing comfortably on HFNC 5 L 21% oxygen. Hemodialysis was currently being performed during time of visit. Discussed with patient's son, who flew from [place], about patient's current status. Patient's son expressed desire to continue hemodialysis if needed but requested to discuss with primary team about the patient's pulmonary condition. Review of systems otherwise negative except for what is mentioned above. Exam Vital Signs Temp Pulse Resp BP Pulse Ox O2 Del Method O2 Flow Rate 98.4 F 83 20 135/66 H 91 L High Flow Nasal Cannula 03/16/25 13:16 03/16/25 14:15 03/16/25 13:16 03/16/25 14:15 03/16/25 13:16 03/16/25 12:00 03/16/25 13:16 FiO2 03/16/25 13:16 Narrative Exam Physical Exam: General: Alert, no acute distress. Skin: Warm, dry, intact, no obvious rash. Head: Normocephalic, atraumatic. Eye: Normal conjunctiva, PERRL. Respiratory: Respirations unlabored on HFNC 5L 21% O2. Gastrointestinal: Soft, nontender, distended. Objective Labs 03/17/25 05:16 03/17/25 05:16 Labs: Laboratory Results - last 24 hr 03/11/25 03/16/25 03/16/25 05:39 03:09 03:16 WBC 20.5 H RBC 3.19 L Hgb 9.5 L Hct 27.8 L MCV 87 MCH 29.8 MCHC 34.2 RDW Std Deviation 49.8 H Plt Count 240 D Neut % (Auto) 90 H Lymph % (Auto) 3 L Zavala % (Auto) 6 Eos % (Auto) 0 Baso % (Auto) 0 Neut # (Auto) 18.4 H Lymph # (Auto) 0.5 L Zavala # (Auto) 1.3 H Eos # (Auto) 0.0 Baso # (Auto) 0.0 Immature Gran # (Auto) 0.29 H Absolute Nucleated RBC 0.02 H Immature Gran % 1 H Nucleated RBC % 0 Puncture Site Left Radial ABG pH 7.41 ABG pCO2 46 ABG pO2 97 ABG HCO3 29 H ABG O2 Saturation 98 ABG Base Excess 4 H FiO2 21 Sodium 135 L Potassium 4.4 D Chloride 96 L Carbon Dioxide 26.6 Anion Gap 12 BUN 53 H Creatinine 3.9 H D Estim Creat Clear Calc 8.1 L eGFR 11 L* BUN/Creatinine Ratio 14 Glucose 129 H Calculated Osmolality 286 Lactic Acid 1.4 Calcium 8.9 Corrected Calcium 9.4 Phosphorus 4.5 Magnesium 1.8 Total Bilirubin 0.4 AST 48 H ALT 111 H Alkaline Phosphatase 74 Total Protein 5.7 Albumin 3.4 D Globulin 2.3 Albumin/Globulin Ratio 1.5 Procalcitonin 0.32 Thyroid Stim Immunoglob <89 HIV 1&2 Antibody Rapid Non-Reactive ABG Interpretation ABG results: 03/09/25 03/09/25 03/10/25 07:50 18:22 09:05 ABG pH 7.45 ABG pCO2 39 ABG pO2 289 H ABG HCO3 27 H ABG O2 Saturation 101 H ABG Base Excess 2 VBG pH 7.39 7.49 VBG pCO2 49 37 D VBG pO2 70 H 68 H VBG Base Excess 4 H 5 H 03/11/25 03/12/25 03/16/25 10:09 09:44 03:09 ABG pH 7.40 7.41 ABG pCO2 44 46 ABG pO2 80 L D 97 ABG HCO3 27 H 29 H ABG O2 Saturation 95 98 ABG Base Excess 2 4 H VBG pH 7.45 VBG pCO2 40 VBG pO2 39 D VBG Base Excess 4 H Quality Measures Quality Measures none Advance care planning discussed with:: patient and child Assessment & Plan Assessment Current Active Medications: Generic Name Dose Route Start Last Admin Trade Name Freq PRN Reason Stop Dose Admin Acetaminophen 650 mg 03/09/25 14:41 03/15/25 23:16 Acetaminophen 325 Mg Tablet PO 04/08/25 14:40 650 mg Q6H PRN Administration Mild Pain(1-3) or Fever >100.3 Atorvastatin Calcium 40 mg 03/09/25 21:00 03/15/25 21:18 Atorvastatin Calcium 20 Mg Tablet PO 04/08/25 20:59 40 mg HS SABRINA Administration Dextrose 25 ml 03/12/25 08:16 Dextrose 50%-Water Inj 50 Ml Syringe IV 04/11/25 08:15 Q15MIN PRN BG 50-70 responsive npo pt Dextrose 50 ml 03/12/25 08:16 Dextrose 50%-Water Inj 50 Ml Syringe IV 04/11/25 08:15 Q15MIN PRN BG <50 OR BG <70 & pt unresponsive Diltiazem HCl 240 mg 03/10/25 09:00 03/16/25 09:18 Diltiazem Cd 120 Mg Capcr PO 04/09/25 08:59 240 mg QDAY SABRINA Administration Docusate Sodium 200 mg 03/15/25 09:00 03/16/25 09:17 Docusate Sod 100 Mg Capsule PO 04/14/25 08:59 200 mg QDAY SABRINA Administration Protocol Gabapentin 100 mg 03/11/25 12:15 03/12/25 11:28 Gabapentin 100 Mg Capsule PO 04/10/25 12:14 Not Given BID SABRINA Glucagon 1 mg 03/12/25 08:16 Glucagon Inj 1 Mg Vial IM Q15MIN PRN BG <70, and no IV access Guaifenesin 200 mg 03/16/25 14:00 03/16/25 13:21 Guaifenesin Syrup 200 Mg/10 Ml Udc PO 04/15/25 13:59 200 mg TID SABRINA Administration Protocol Heparin Sodium (Porcine) 3,300 unit 03/15/25 15:49 03/15/25 18:17 Heparin Sod Inj 1000 Unit/Ml Vial 10 Ml INDWELLCAT 03/29/25 15:48 3,300 unit X1 PRN Administration DIALYSIS Albumin Human 25 gm in 100 mls @ 100 mls/min 03/15/25 15:49 Albuminar-25 Ivpb IV 03/18/25 15:48 PRN PRN DIALYSIS Insulin Human Lispro 0 unit 03/12/25 11:30 03/16/25 11:51 Insulin Lispro (Admelog) 1 Unit/0.01 Ml Unit SC 04/11/25 11:29 Not Given AC SABRINA Protocol Ipratropium [place] 0.5 mg 03/10/25 15:00 03/16/25 10:31 Ipratropium Rt 0.5 Mg/ 2.5 Ml Nebu INH 04/09/25 14:59 0.5 mg Q4HRRT SABRINA Administration Lactulose 20 gm 03/16/25 06:00 03/16/25 13:22 Lactulose Syrup 20 Gm/30 Ml Udc PO 04/15/25 05:59 20 gm TID SABRINA Administration Protocol Levalbuterol HCl 1.25 mg 03/10/25 15:00 03/16/25 10:31 Levalbuterol Rt 1.25 Mg/0.5 Ml Nebu INH 04/09/25 14:59 1.25 mg Q4HRRT SABRINA Administration Levalbuterol HCl 0.63 mg 03/11/25 22:53 03/14/25 16:21 Levalbuterol Rt 0.63 Mg/3 Ml Nebu INH 04/10/25 22:52 0.63 mg Q8HR PRN Administration WHEEZING Levofloxacin 250 mg 03/17/25 09:00 Levofloxacin 250 Mg Tablet PO 03/24/25 08:59 QDAY SABRINA Melatonin 3 mg 03/09/25 23:18 03/15/25 18:33 Melatonin 3 Mg Tablet PO 04/09/25 20:59 3 mg HS PRN Administration insomnia Methimazole 5 mg 03/15/25 08:45 03/16/25 13:21 Methimazole 5 Mg Tablet PO 04/14/25 08:44 5 mg TID SABRINA Administration Methylprednisolone Sodium Succinate 60 mg 03/16/25 21:00 Methylprednisolone Sod Succ 40 Mg Vial IVP 03/23/25 20:59 BID SABRINA Ondansetron HCl 4 mg 03/09/25 14:41 Ondansetron Inj 2 Mg/Ml Inj 2 Ml IVP 04/08/25 14:40 Q6H PRN NAUSEA OR VOMITING Protocol Pantoprazole Sodium 40 mg 03/10/25 09:00 03/16/25 09:17 Pantoprazole 40 Mg Tablet PO 04/09/25 08:59 40 mg QDAY SABRINA Administration Breztri (Budesonide, 2 ea 03/13/25 12:00 03/16/25 06:52 Glycopyrrolate And INH 04/12/25 11:59 2 puff Formoterol) BID SABRINA Administration Sennosides 1 tab 03/14/25 09:00 03/16/25 09:17 Senna Tablet PO 04/13/25 08:59 1 tab QDAY SABRINA Administration Protocol Sodium Chloride 3 ml 03/11/25 16:26 Sodium Chloride Rt Annika 0.9% 3 Ml Nebu INH 04/10/25 16:25 PRN PRN SOLN Plan Mrs. 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 Nephrology was consulted for management of her peritoneal dialysis. #ESRD on Peritoneal Dialysis #ESRD 2/2 Donna's Granulomatosis #Fluid overload status - Discontinued nightly peritoneal dialysis. - Permanent dialysis catheter placed 03/15. - peritoneal dialysis was not sufficient in removing adequate volume. - Hemodialysis performed 03/15 and 03/16. - Patient to see Dr. Leo for outpatient HD. - Continue to monitor renal function. - Avoid IV hydration given past history of fluid overload and CHF. - Avoid nephrotoxic drugs and renally adjust medications. - Nephrology will continue to follow. Patient was discussed with the Nephrology attending, Dr. Amezcua. Thank you for allowing us to participate in the care of this patient. Rogelio Asher, PGY-1 Attending Provider Attestation/Addendum Agree with assessment and plan and finding of resident. Temo Amezcua MD
[2025-03-16] MEDS: ALBUMIN HUMAN 25% IVPB 25 GM/100 ML BTL IV (15:57)
--- NOTE | 2025-03-16 16:02 | PC.NURSE ---
BP TRENDING DOWN, PT DENIES ALL S/S OF HYPOTENSION WILL ADMIN PRN ALBUMIN PER MD ORDERS AND CONT. TO MONITOR
--- NOTE | 2025-03-16 16:03 | PC.NURSE ---
BP TRENDING BACK UP, HR ELEVATED PT DENIES ALL C/O CHEST PAIN,P RESSURE, ABURTO, SOB OR DISCOMFORT WILL CONT. TO MONITOR
--- NOTE | 2025-03-16 16:16 | PC.NURSE ---
BP LOW PT DENIES ALL S/S OF HYPOTENSION, UF GOAL LOWERED TO 0.8L TOLERATED WILL CONT. TO MONITOR
[2025-03-16] MEDS: HEPARIN SOD INJ 1000 UNIT/ML VIAL 10 ML 3300 UNIT INDWELLCAT (16:34)
--- NOTE | 2025-03-16 18:46 | PD.RESPRO ---
Documentation for date of: 03/16/25 Subjective Subjective Interval history: Patient seen and examined at bedside. Patient continues to be short of breath, using accessory muscles, and primary team did consult pulmonary. Now on 2L NC. Pulmonary consultation was done with Dr. 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 On high-dose steroids along with nebulizations. Also reviewed her xray and feel there is fluid overload also and recommended to change to HD as PD does not work well after few years. 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 GPA was in remission for many years after initial diagnosis in [place] treated with prednisone and methotrexate 25 years ago , renal disease manifested later [facility] biopsy was inconclusive and repeat biopsy at [facility] showed findings consistent with GPA, started on rituximab and steroid used but progressed to ESRD over time around 2019 Recommended hemodialysis previously by me also during last admission but daughter, sons who are the caregivers were not ready for it. Other vitals are stable, creatinine at 6.7, and cracles appreciated throughout the lung mason. Will continue to monitor closely and fluid management as per nephrology as patient on dialysis. Abnormal thyroid function tests and primary team ordered further lab tests; ultrasound of the thyroid revealed bilateral vascular solid thyroid nodules, primary team may consider ultrasound-guided fine-needle aspiration of both nodules. On 03/13/2025 Dr. Olivares had about 30 minutes discussion with the patient's daughter regarding starting the patient on HD, at least for couple of months, and she reported she would decide about it with further discussion with other family members and decide about HD. Finally, on 03/15/2025, patient's family agreed for hemodialysis. After successful placement of IR hemodialysis catheter, she is undergoing hemodialysis session this afternoon. 03/16/2025: Patient's NC was changed to high flow nasal cannula overnight, labs revealing mild worsening of white count at 20.5, improvement in BUN/creatinine with 53/3.9 respectively, after hemodialysis yesterday. Likely patient will get another hemodialysis tomorrow morning. Chest x-ray revealing bilateral pneumonia with superimposed mild to moderate CHF. Exam Vital Signs Temp Pulse Resp BP Pulse Ox O2 Del Method O2 Flow Rate 97.1 F 122 H 26 H 94/64 97 BiPAP 20 03/16/25 16:51 03/16/25 18:30 03/16/25 18:30 03/16/25 16:51 03/16/25 18:30 03/16/25 16:00 03/16/25 18:30 FiO2 25 03/16/25 18:30 Narrative Exam General: Alert and oriented x3. In no acute distress. Eyes: Pupils are equal and reactive to light bilaterally. HEENT: Atraumatic, normocephalic. No JVD noted. Mucosa moist. Cardiovascular: Normal S1 and soft S2,. Tachycardic, 3/6 ejection systolic murmur heard at aortic area, 3/6 holosystolic murmur heard on the mitral area and parasternal area, trace peripheral pitting edema noted. Respiratory: Mild respiratory distress on oxygen via nasal cannula, use of accessory muscles appreciated, bilateral air entry present, wheezing noted. Significant crackles throughout the lung mason. Abdomen: Soft, nontender, nondistended. Skin: No rash. Warm to touch. Musculoskeletal: No gross injuries. Able to move all 4 extremities. Neuro: Alert and oriented x3. No focal neuro deficits. Psych: mildly depressed. Objective Labs 03/17/25 05:16 03/17/25 05:16 Labs: Laboratory Results - last 24 hr 03/11/25 03/16/25 03/16/25 05:39 03:09 03:16 WBC 20.5 H RBC 3.19 L Hgb 9.5 L Hct 27.8 L MCV 87 MCH 29.8 MCHC 34.2 RDW Std Deviation 49.8 H Plt Count 240 D Neut % (Auto) 90 H Lymph % (Auto) 3 L [place] % (Auto) 6 Eos % (Auto) 0 Baso % (Auto) 0 Neut # (Auto) 18.4 H Lymph # (Auto) 0.5 L [place] # (Auto) 1.3 H Eos # (Auto) 0.0 Baso # (Auto) 0.0 Immature Gran # (Auto) 0.29 H Absolute Nucleated RBC 0.02 H Immature Gran % 1 H Nucleated RBC % 0 Puncture Site Left Radial ABG pH 7.41 ABG pCO2 46 ABG pO2 97 ABG HCO3 29 H ABG O2 Saturation 98 ABG Base Excess 4 H FiO2 21 Sodium 135 L Potassium 4.4 D Chloride 96 L Carbon Dioxide 26.6 Anion Gap 12 BUN 53 H Creatinine 3.9 H D Estim Creat Clear Calc 8.1 L eGFR 11 L* BUN/Creatinine Ratio 14 Glucose 129 H Calculated Osmolality 286 Lactic Acid 1.4 Calcium 8.9 Corrected Calcium 9.4 Phosphorus 4.5 Magnesium 1.8 Total Bilirubin 0.4 AST 48 H ALT 111 H Alkaline Phosphatase 74 Total Protein 5.7 Albumin 3.4 D Globulin 2.3 Albumin/Globulin Ratio 1.5 Procalcitonin 0.32 Thyroid Stim Immunoglob <89 HIV 1&2 Antibody Rapid Non-Reactive ABG Interpretation ABG results: 03/09/25 03/09/25 03/10/25 07:50 18:22 09:05 ABG pH 7.45 ABG pCO2 39 ABG pO2 289 H ABG HCO3 27 H ABG O2 Saturation 101 H ABG Base Excess 2 VBG pH 7.39 7.49 VBG pCO2 49 37 D VBG pO2 70 H 68 H VBG Base Excess 4 H 5 H 03/11/25 03/12/25 03/16/25 10:09 09:44 03:09 ABG pH 7.40 7.41 ABG pCO2 44 46 ABG pO2 80 L D 97 ABG HCO3 27 H 29 H ABG O2 Saturation 95 98 ABG Base Excess 2 4 H VBG pH 7.45 VBG pCO2 40 VBG pO2 39 D VBG Base Excess 4 H Quality Measures Quality Measures none Advance care planning discussed with:: patient Assessment & Plan Assessment Current Active Medications: Generic Name Dose Route Start Last Admin Trade Name Freq PRN Reason Stop Dose Admin Acetaminophen 650 mg 03/09/25 14:41 03/15/25 23:16 Acetaminophen 325 Mg Tablet PO 04/08/25 14:40 650 mg Q6H PRN Administration Mild Pain(1-3) or Fever >100.3 Albuterol/Ipratropium 3 ml 03/16/25 17:12 Albuterol/Ipratropium (Duoneb) Rt Annika 3 Ml Nebu INH 04/15/25 17:11 Q2HR PRN SHORTNESS OF BREATH OR WHEEZE Atorvastatin Calcium 40 mg 03/09/25 21:00 03/15/25 21:18 Atorvastatin Calcium 20 Mg Tablet PO 04/08/25 20:59 40 mg HS SABRINA Administration Dextrose 25 ml 03/12/25 08:16 Dextrose 50%-Water Inj 50 Ml Syringe IV 04/11/25 08:15 Q15MIN PRN BG 50-70 responsive npo pt Dextrose 50 ml 03/12/25 08:16 Dextrose 50%-Water Inj 50 Ml Syringe IV 04/11/25 08:15 Q15MIN PRN BG <50 OR BG <70 & pt unresponsive Diltiazem HCl 240 mg 03/10/25 09:00 03/16/25 09:18 Diltiazem Cd 120 Mg Capcr PO 04/09/25 08:59 240 mg QDAY SABRINA Administration Docusate Sodium 200 mg 03/15/25 09:00 03/16/25 09:17 Docusate Sod 100 Mg Capsule PO 04/14/25 08:59 200 mg QDAY SABRINA Administration Protocol Gabapentin 100 mg 03/11/25 12:15 03/12/25 11:28 Gabapentin 100 Mg Capsule PO 04/10/25 12:14 Not Given BID SABRINA Glucagon 1 mg 03/12/25 08:16 Glucagon Inj 1 Mg Vial IM Q15MIN PRN BG <70, and no IV access Guaifenesin 200 mg 03/16/25 14:00 03/16/25 13:21 Guaifenesin Syrup 200 Mg/10 Ml Udc PO 04/15/25 13:59 200 mg TID SABRINA Administration Protocol Heparin Sodium (Porcine) 3,300 unit 03/15/25 15:49 03/16/25 16:34 Heparin Sod Inj 1000 Unit/Ml Vial 10 Ml INDWELLCAT 03/29/25 15:48 3,300 unit X1 PRN Administration DIALYSIS Albumin Human 25 gm in 100 mls @ 100 mls/min 03/15/25 15:49 03/16/25 15:57 Albuminar-25 Ivpb IV 03/18/25 15:48 100 mls/min PRN PRN Administration DIALYSIS Insulin Human Lispro 0 unit 03/12/25 11:30 03/16/25 17:39 Insulin Lispro (Admelog) 1 Unit/0.01 Ml Unit SC 04/11/25 11:29 Not Given AC [facility] Protocol Ipratropium [place] 0.5 mg 03/10/25 15:00 03/16/25 18:29 Ipratropium Rt 0.5 Mg/ 2.5 Ml Nebu INH 04/09/25 14:59 0.5 mg Q4HRRT SABRINA Administration Lactulose 20 gm 03/16/25 06:00 03/16/25 13:22 Lactulose Syrup 20 Gm/30 Ml Udc PO 04/15/25 05:59 20 gm TID SABRINA Administration Protocol Levalbuterol HCl 1.25 mg 03/10/25 15:00 03/16/25 18:28 Levalbuterol Rt 1.25 Mg/0.5 Ml Nebu INH 04/09/25 14:59 1.25 mg Q4HRRT SABRINA Administration Levofloxacin 250 mg 03/17/25 09:00 Levofloxacin 250 Mg Tablet PO 03/24/25 08:59 QDAY SABIRNA Melatonin 3 mg 03/09/25 23:18 03/15/25 18:33 Melatonin 3 Mg Tablet PO 04/09/25 20:59 3 mg HS PRN Administration insomnia Methimazole 5 mg 03/15/25 08:45 03/16/25 13:21 Methimazole 5 Mg Tablet PO 04/14/25 08:44 5 mg TID SABRINA Administration Methylprednisolone Sodium Succinate 60 mg 03/16/25 21:00 Methylprednisolone Sod Succ 40 Mg Vial IVP 03/23/25 20:59 BID SABRINA Ondansetron HCl 4 mg 03/09/25 14:41 Ondansetron Inj 2 Mg/Ml Inj 2 Ml IVP 04/08/25 14:40 Q6H PRN NAUSEA OR VOMITING Protocol Pantoprazole Sodium 40 mg 03/10/25 09:00 03/16/25 09:17 Pantoprazole 40 Mg Tablet PO 04/09/25 08:59 40 mg QDAY SABRINA Administration Breztri (Budesonide, 2 ea 03/13/25 12:00 03/16/25 06:52 Glycopyrrolate And INH 04/12/25 11:59 2 puff Formoterol) BID SABRINA Administration Sennosides 1 tab 03/14/25 09:00 03/16/25 09:17 Senna Tablet PO 04/13/25 08:59 1 tab QDAY SABRINA Administration Protocol Sodium Chloride 3 ml 03/11/25 16:26 Sodium Chloride Rt Annika 0.9% 3 Ml Nebu INH 04/10/25 16:25 PRN PRN SOLN Plan A 84-year-old female with a past medical history of severe aortic stenosis with a valve area of 0.5 cm?, moderate MR and TR, moderate PAH, preserved EF with diastolic dysfunction, end-stage renal disease on peritoneal dialysis for the last 4 to 5 years, Antonia's granulomatosis diagnosed 25 years ago, chronic severe asthma since her early 20s, history of multifocal atrial tachycardia, 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 1. Acute hypoxic respiratory failure mostly secondary to fluid overload 2/2 failing PD, and 2. Acute asthma exacerbation 3. Severe aortic stenosis with a valve area less than 0.5 cm? 4. End-stage renal disease on peritoneal dialysis for past 4 to 5 years mostly secondary to Antonia's granulomatosis 5. Abnormal thyroid function tests 6. Multifocal atrial tachycardia 7. Valvular heart disease with severe aortic stenosis, moderate MR and TR 8. Moderate pulmonary artery pretension with an RVSP of 55 mmHg 9. Chronic diastolic congestive heart failure 10. 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 Patient started on high-dose steroids with Solu-Medrol 60 mg every every 8 hours decreased to every 12 hours, along with nebulizations and inhalers. Still continues to be on oxygen and now use of any accessory muscles appreciated. Combination of upper respiratory tract symptoms along with recent emotional stress. Also on IV antibiotics. Patient has been tachycardic On arrival and EKG reviewed. EKG shows irregularly irregular rhythm but most of the time is 100 to 130 bpm which is typical of multifocal atrial tachycardia. Has irregularly irregular rhythm with varying PP and UT intervals. 3 distinct P wave morphologies are also seen in the lead II. Also patient has underlying lung disease which could contribute's significantly for the multifocal atrial tachycardia Continue rate control with diltiazem 240 mg once daily as no beta-pratik can be given because of the as above. Will uptitrate the diltiazem to 360 mg once daily and if rate is not well-controlled. No anticoagulation required. Patient is mildly elevated troponins at 0.34 and 0.145. Troponin elevation mostly secondary to NSTEMI type II in the setting of supply/demand mismatch. Patient denies any Chest pain or chest pressure at the present moment. EKG showed marked without any acute ST-T changes history of ischemia. Patient is scheduled to have left and right heart cardiac catheterization on Wednesday as outpatient but cannot be done because of her acute hypoxic respiratory failure at the present point of time. Continue Plavix for now and high intensity statin. No beta-pratik because of asthma. No heparin drip required. Patient does have severe as noted above with a valve area of less than 0.5 cm?. Patient also has moderate MR and TR with moderate PAH noted on the previous echocardiogram in November 2024. Workup started as outpatient for the severe and as noted previously was scheduled for the left heart cardiac catheterization and right heart cardiac catheterization which will need to be postponed for now given her acute hypoxic respiratory failure. Will continue further workup of the severe as outpatient. 03/16/2025: Patient seen and examined at bedside. Patient continues to be short of breath, using accessory muscles, and primary team did consult pulmonary. Now on 2L NC. Pulmonary consultation was done with Dr. 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 On high-dose steroids along with nebulizations. Also reviewed her xray and feel there is fluid overload also and recommended to change to HD as PD does not work well after few years. 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 GPA was in remission for many years after initial diagnosis in [place] treated with prednisone and methotrexate 25 years ago , renal disease manifested later [facility] biopsy was inconclusive and repeat biopsy at [facility] showed findings consistent with GPA, started on rituximab and steroid used but progressed to ESRD over time around 2019 Recommended hemodialysis previously by me also during last admission but daughter, sons who are the caregivers were not ready for it. Other vitals are stable, creatinine at 6.7, and cracles appreciated throughout the lung mason. Will continue to monitor closely and fluid management as per nephrology as patient on dialysis. Abnormal thyroid function tests and primary team ordered further lab tests; ultrasound of the thyroid revealed bilateral vascular solid thyroid nodules, primary team may consider ultrasound-guided fine-needle aspiration of both nodules. On 03/13/2025 Dr. Olivares had about 30 minutes discussion with the patient's daughter regarding starting the patient on HD, at least for couple of months, and she reported she would decide about it with further discussion with other family members and decide about HD. Finally, on 03/15/2025, patient's family agreed for hemodialysis. After successful placement of IR hemodialysis catheter, she is undergoing hemodialysis session this afternoon. 03/16/2025: Patient's NC was changed to high flow nasal cannula overnight, labs revealing mild worsening of white count at 20.5, improvement in BUN/creatinine with 53/3.9 respectively, after hemodialysis yesterday. Likely patient will get another hemodialysis tomorrow morning. Chest x-ray revealing bilateral pneumonia with superimposed mild to moderate CHF. Was started on renally dose levofloxacin for pneumonia. Management of rest of the medical conditions as per primary team and other consultants. Thank you for the consult and allowing me to participate in the care of the patient. Cardiology will continue to follow. The patient's management plan was discussed with my attending physician MD Kevin Murcia MD, PGY3 Attending Provider Attestation/Addendum I have personally seen and examined the patient separately on the above date of service and discussed the plan of care with the resident. I reviewed the resident Dr. Kevin Sullivan consultation progress note and agree with the resident findings and plan in the note above and have also edited the documentation to reflect my findings and plan. Family was at the bedside today. Patient did have a session of dialysis. Patient still is short of breath and is on high flow nasal cannula. Checks x-ray remains the same. WBC mildly elevated but patient is on high-dose steroids. Patient is sitting on the chair and using accessory muscles but able to speak in full sentences. Discussed with the son and the daughter that it will take a couple of sessions of hemodialysis over the weekend until Wednesday and see how the patient improves. Explained to the family that her fluid overload is multifactorial from left active peritoneal dialysis, diastolic dysfunction, mitral valve disease, aortic valve disease and concomitant tachycardia worsening the diastolic dysfunction and fluid retention. Her shortness of breath also has asthma exacerbation along with possible Antonia's granulomatosis flare as differential diagnosis along with component of anxiety. Jori Olivares M.D. Interventional Cardiology
[2025-03-16] MEDS: ATORVASTATIN CALCIUM 20 MG TABLET 40 MG PO (21:29)
[2025-03-16 22:27] LABS: OBS Card Expiration Date 2026-09; OBS Card Lot # 23001; OBS Developer Lot # 23002; OBS Performed By verah; OBS QC OK? Yes; Occult Blood, Stool Positive (Negative)
[2025-03-16] MEDS: ACETAMINOPHEN 325 MG TABLET 650 MG PO (22:38)
[2025-03-17] VITALS (31 sets, daily range): BP systolic 106–175; BP diastolic 47–85; PULSE 60–132; RESP 12–32; TEMP 36.3–37.1; O2SAT 91–106; BMI 28.3
[2025-03-17] MEDS: LEVALBUTEROL RT 1.25 MG/0.5 ML NEBU INH ×5 (03:09→22:51)
[2025-03-17] MEDS: IPRATROPIUM RT 0.5 MG/ 2.5 ML NEBU INH ×5 (03:09→22:51)
[2025-03-17 06:07] LABS: Basophils # (Auto) 0.0 Thou/mm3 (0.0-0.2); Basophils % (Auto) 0 % (0-2.5); Eosinophils # (Auto) 0.0 Thou/mm3 (0.0-0.5); Eosinophils % (Auto) 0 % (0-10); Hematocrit 25.2 % (36.0-46.0); Immature Granulocytes Auto 0.27 Thou/mm3 (0.00-0.00); Lymphocytes # (Auto) 0.4 Thou/mm3 (1.0-4.8); Lymphocytes % (Auto) 2 % (10-50); Mean Corpuscular HGB Conc 33.7 g/dl (31.0-37.0); Mean Corpuscular Hemoglobin 29.9 pg (25.0-35.0); Mean Corpuscular Volume 89 fL (80-100); Monocytes # (Auto) 0.6 Thou/mm3 (0.0-0.8); Monocytes % (Auto) 4 % (0-12); Neutrophils # (Auto) 14.5 Thou/mm3 (1.8-7.7); Neutrophils % (Auto) 92 % (37-80); Nucleated Red Blood Cell # 0.00 Thou/mm3 (0.00-0.00); Nucleated Red Blood Cell % 0 /100 WBC (0); Platelet Count 208 Thou/mm3 (140-440); RDW Standard Deviation 49.6 fL (36.4-46.3); Red Blood Count 2.84 Miln/mm3 (4.00-5.20); White Blood Count 15.7 Thou/mm3 (3.6-11.0)
[2025-03-17 06:10] LABS: Hemoglobin 8.5 g/dL (12.0-16.0)
[2025-03-17 06:44] LABS: Alanine Aminotransferase 96 U/L (10-49); Albumin, Serum 3.6 gm/dL (3.4-4.8); Albumin/Globulin Ratio 1.6 (1.2-2.2); Alkaline Phosphatase 61 U/L (46-116); Anion Gap 11 (7-16); Aspartate Amino Transferase 49 U/L (0-34); BUN/Creatinine Ratio 13 Ratio (12-20); Bilirubin,Total 0.6 mg/dL (0.3-1.2); Blood Urea Nitrogen 39 mg/dL (9-23); Calcium 8.6 mg/dL (8.3-10.6); Calcium (Corrected) 8.9 mg/dL (8.5-10.1); Carbon Dioxide 30.7 mMol/L (20.0-31.0); Chloride 94 mMol/L (98-107); Creatinine (Component) 3.0 mg/dL (0.6-1.3); Estimated Creatinine Clearance 10.5 mL/min (>60); Globulin 2.2 gm/dL (2.3-3.5); Glucose 130 mg/dL (74-106); Magnesium 2.2 mg/dL (1.6-2.6); Osmolality,Calculated 283 (275-295); Phosphorous 3.8 mg/dL (2.4-5.1); Potassium 3.9 mMol/L (3.4-5.1); Sodium 136 mMol/L (136-145); Total Protein 5.8 gm/dL (5.7-8.2); eGFR 15 See Note
[2025-03-17] MEDS: BREZTRI 2 EA INH ×2 (07:14→21:21)
--- NOTE | 2025-03-17 08:43 | PC.NURSE ---
Patient taken to Dialysis at 0740 via bed and dialysis nurse.
--- NOTE | 2025-03-17 08:49 | PC.NURSE ---
PT HR ELEVATED, PT DENIES ALL C/O CHEST PAIN, PRESSURE, ABURTO OR DISCOMFORT WILL CONT. TO MONITOR
--- NOTE | 2025-03-17 09:26 | PC.NURSE ---
PT HR ELEVATED, PT DENIES ALL C/O CHEST PAIN, PRESSURE, ABURTO OR DISCOMFORT. WILL CONT. TO MONITOR
--- NOTE | 2025-03-17 10:07 | ESPR_ITS ---
Documentation for date of: 03/17/25 Subjective Subjective Interval history: Patient seen and examined at bedside. Patient continues to be short of breath, using accessory muscles, and primary team did consult pulmonary. Now on 2L NC. Pulmonary consultation was done with Dr. 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 On high-dose steroids along with nebulizations. Also reviewed her xray and feel there is fluid overload also and recommended to change to HD as PD does not work well after few years. Multiple Coil Winder at [place] failed to find extrapulmonary causes of dyspnea and was discovered to have . GPA was in remission for many years after initial diagnosis in [place] treated with prednisone and methotrexate 25 years ago , renal disease manifested later [facility] biopsy was inconclusive and repeat biopsy at [facility] showed findings consistent with GPA, started on rituximab and steroid used but progressed to ESRD over time around 2020 Recommended hemodialysis previously by me also during last admission but daughter, sons who are the caregivers were not ready for it. Other vitals are stable, creatinine at 6.7, and cracles appreciated throughout the lung mason. Will continue to monitor closely and fluid management as per nephrology as patient on dialysis. Abnormal thyroid function tests and primary team ordered further lab tests; ultrasound of the thyroid revealed bilateral vascular solid thyroid nodules, primary team may consider ultrasound-guided fine-needle aspiration of both nodules. On 03/13/2025 Dr. Olivares had about 30 minutes discussion with the patient's daughter regarding starting the patient on HD, at least for couple of months, and she reported she would decide about it with further discussion with other family members and decide about HD. Finally, on 03/15/2025, patient's family agreed for hemodialysis. After successful placement of IR hemodialysis catheter, she is undergoing hemodialysis session this afternoon. 03/17/2025: Patientis currently on high flow nasal cannulat, labs revealing improvement in white count to 15.7, improvement in BUN/creatinine with 39/3.0 respectively, after total of 2 HD session so far, and patient is getting another session of hemodialysis this morning. The patient is expected to get better with fluid overload after couple of hemodialysis sessions. We will increase diltiazem CD to 360 mg daily due to concern regarding tachycardia. Exam Vital Signs Temp Pulse Resp BP Pulse Ox O2 Del Method O2 Flow Rate 97.8 F 98 17 126/74 94 L High Flow Nasal Cannula 18 03/17/25 08:00 03/17/25 10:00 03/17/25 08:00 03/17/25 10:00 03/17/25 08:00 03/17/25 08:00 03/17/25 08:00 FiO2 25 03/17/25 08:00 Narrative Exam General: Alert and oriented x3. In no acute distress. Eyes: Pupils are equal and reactive to light bilaterally. HEENT: Atraumatic, normocephalic. No JVD noted. Mucosa moist. Cardiovascular: Normal S1 and soft S2,. Tachycardic, 3/6 ejection systolic murmur heard at aortic area, 3/6 holosystolic murmur heard on the mitral area and parasternal area, trace peripheral pitting edema noted. Respiratory: Mild respiratory distress on oxygen via nasal cannula, use of accessory muscles appreciated, bilateral air entry present, wheezing noted. Significant crackles throughout the lung mason. Abdomen: Soft, nontender, nondistended. Skin: No rash. Warm to touch. Musculoskeletal: No gross injuries. Able to move all 4 extremities. Neuro: Alert and oriented x3. No focal neuro deficits. Psych: Mild improvement in low mood. Objective Labs 03/17/25 05:16 03/17/25 05:16 Labs: Laboratory Results - last 24 hr 03/16/25 03/17/25 22:17 05:16 WBC 15.7 H RBC 2.84 L Hgb 8.5 L Hct 25.2 L MCV 89 MCH 29.9 MCHC 33.7 RDW Std Deviation 49.6 H Plt Count 208 D Neut % (Auto) 92 H Lymph % (Auto) 2 L Harmon % (Auto) 4 Eos % (Auto) 0 Baso % (Auto) 0 Neut # (Auto) 14.5 H Lymph # (Auto) 0.4 L Harmon # (Auto) 0.6 Eos # (Auto) 0.0 Baso # (Auto) 0.0 Immature Gran # (Auto) 0.27 H Absolute Nucleated RBC 0.00 Immature Gran % 2 H Nucleated RBC % 0 Sodium 136 Potassium 3.9 D Chloride 94 L Carbon Dioxide 30.7 Anion Gap 11 BUN 39 H Creatinine 3.0 H D Estim Creat Clear Calc 10.5 L eGFR 15 L BUN/Creatinine Ratio 13 Glucose 130 H Calculated Osmolality 283 Calcium 8.6 Corrected Calcium 8.9 Phosphorus 3.8 Magnesium 2.2 Total Bilirubin 0.6 AST 49 H ALT 96 H Alkaline Phosphatase 61 Total Protein 5.8 Albumin 3.6 Globulin 2.2 L Albumin/Globulin Ratio 1.6 Stool Occult Blood Positive A ABG Interpretation ABG results: 03/09/25 03/09/25 03/10/25 07:50 18:22 09:05 ABG pH 7.45 ABG pCO2 39 ABG pO2 289 H ABG HCO3 27 H ABG O2 Saturation 101 H ABG Base Excess 2 VBG pH 7.39 7.49 VBG pCO2 49 37 D VBG pO2 70 H 68 H VBG Base Excess 4 H 5 H 03/11/25 03/12/25 03/16/25 10:09 09:44 03:09 ABG pH 7.40 7.41 ABG pCO2 44 46 ABG pO2 80 L D 97 ABG HCO3 27 H 29 H ABG O2 Saturation 95 98 ABG Base Excess 2 4 H VBG pH 7.45 VBG pCO2 40 VBG pO2 39 D VBG Base Excess 4 H Quality Measures Quality Measures none Advance care planning discussed with:: patient Assessment & Plan Assessment Current Active Medications: Generic Name Dose Route Start Last Admin Trade Name Freq PRN Reason Stop Dose Admin Acetaminophen 650 mg 03/09/25 14:41 03/16/25 22:38 Acetaminophen 325 Mg Tablet PO 04/08/25 14:40 650 mg Q6H PRN Administration Mild Pain(1-3) or Fever >100.3 Albuterol/Ipratropium 3 ml 03/16/25 17:12 Albuterol/Ipratropium (Duoneb) Rt Annika 3 Ml Nebu INH 04/15/25 17:11 Q2HR PRN SHORTNESS OF BREATH OR WHEEZE Atorvastatin Calcium 40 mg 03/09/25 21:00 03/16/25 21:29 Atorvastatin Calcium 20 Mg Tablet PO 04/08/25 20:59 40 mg HS SABRINA Administration Dextrose 25 ml 03/12/25 08:16 Dextrose 50%-Water Inj 50 Ml Syringe IV 04/11/25 08:15 Q15MIN PRN BG 50-70 responsive npo pt Dextrose 50 ml 03/12/25 08:16 Dextrose 50%-Water Inj 50 Ml Syringe IV 04/11/25 08:15 Q15MIN PRN BG <50 OR BG <70 & pt unresponsive Diltiazem HCl 240 mg 03/10/25 09:00 03/16/25 09:18 Diltiazem Cd 120 Mg Capcr PO 04/09/25 08:59 240 mg QDAY SABRINA Administration Docusate Sodium 200 mg 03/15/25 09:00 03/16/25 09:17 Docusate Sod 100 Mg Capsule PO 04/14/25 08:59 200 mg QDAY SABRINA Administration Protocol Gabapentin 100 mg 03/11/25 12:15 03/12/25 11:28 Gabapentin 100 Mg Capsule PO 04/10/25 12:14 Not Given BID SABRINA Glucagon 1 mg 03/12/25 08:16 Glucagon Inj 1 Mg Vial IM Q15MIN PRN BG <70, and no IV access Guaifenesin 200 mg 03/16/25 14:00 03/17/25 06:35 Guaifenesin Syrup 200 Mg/10 Ml Udc PO 04/15/25 13:59 Not Given TID [facility] Protocol Heparin Sodium (Porcine) 3,300 unit 03/15/25 15:49 03/16/25 16:34 Heparin Sod Inj 1000 Unit/Ml Vial 10 Ml INDWELLCAT 03/29/25 15:48 3,300 unit X1 PRN Administration DIALYSIS Albumin Human 25 gm in 100 mls @ 100 mls/min 03/15/25 15:49 03/16/25 15:57 Albuminar-25 Ivpb IV 03/18/25 15:48 100 mls/min PRN PRN Administration DIALYSIS Insulin Human Lispro 0 unit 03/12/25 11:30 03/17/25 07:21 Insulin Lispro (Admelog) 1 Unit/0.01 Ml Unit SC 04/11/25 11:29 Not Given AC SABRINA Protocol Ipratropium [place] 0.5 mg 03/10/25 15:00 03/17/25 07:13 Ipratropium Rt 0.5 Mg/ 2.5 Ml Nebu INH 04/09/25 14:59 0.5 mg Q4HRRT SABRINA Administration Lactulose 20 gm 03/17/25 02:45 Lactulose Syrup 20 Gm/30 Ml Udc PO 04/15/25 05:59 TID PRN constipation Protocol Levalbuterol HCl 1.25 mg 03/10/25 15:00 03/17/25 07:14 Levalbuterol Rt 1.25 Mg/0.5 Ml Nebu INH 04/09/25 14:59 1.25 mg Q4HRRT SABRINA Administration Levofloxacin 250 mg 03/17/25 09:00 Levofloxacin 250 Mg Tablet PO 03/24/25 08:59 QDAY SABRINA Melatonin 3 mg 03/09/25 23:18 03/15/25 18:33 Melatonin 3 Mg Tablet PO 04/09/25 20:59 3 mg HS PRN Administration insomnia Methimazole 5 mg 03/15/25 08:45 03/17/25 06:35 Methimazole 5 Mg Tablet PO 04/14/25 08:44 Not Given TID SABRINA Methylprednisolone Sodium Succinate 60 mg 03/16/25 21:00 03/16/25 21:29 Methylprednisolone Sod Succ 40 Mg Vial IVP 03/23/25 20:59 60 mg BID SABRINA Administration Ondansetron HCl 4 mg 03/09/25 14:41 Ondansetron Inj 2 Mg/Ml Inj 2 Ml IVP 04/08/25 14:40 Q6H PRN NAUSEA OR VOMITING Protocol Pantoprazole Sodium 40 mg 03/17/25 03:00 03/17/25 03:02 Pantoprazole Inj 40 Mg Vial IVP 04/16/25 02:59 40 mg BID SABRINA Administration Breztri (Budesonide, 2 ea 03/13/25 12:00 03/17/25 07:14 Glycopyrrolate And INH 04/12/25 11:59 2 puff Formoterol) BID SABRINA Administration Sennosides 1 tab 03/14/25 09:00 03/16/25 09:17 Senna Tablet PO 04/13/25 08:59 1 tab QDAY SABRINA Administration Protocol Sodium Chloride 3 ml 03/11/25 16:26 Sodium Chloride Rt Annika 0.9% 3 Ml Nebu INH 04/10/25 16:25 PRN PRN SOLN Plan A 84-year-old female with a past medical history of severe aortic stenosis with a valve area of 0.5 cm?, moderate MR and TR, moderate PAH, preserved EF with diastolic dysfunction, end-stage renal disease on peritoneal dialysis for the last 4 to 5 years, Antonia's granulomatosis diagnosed 25 years ago, chronic severe asthma since her early 20s, history of multifocal atrial tachycardia, 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 1. Acute hypoxic respiratory failure mostly secondary to fluid overload 2/2 failing PD, and 2. Acute asthma exacerbation 3. Severe aortic stenosis with a valve area less than 0.5 cm? 4. End-stage renal disease on peritoneal dialysis for past 4 to 5 years mostly secondary to Antonia's granulomatosis 5. Abnormal thyroid function tests 6. Multifocal atrial tachycardia 7. Valvular heart disease with severe aortic stenosis, moderate MR and TR 8. Moderate pulmonary artery pretension with an RVSP of 55 mmHg 9. Chronic diastolic congestive heart failure 10. 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 Patient started on high-dose steroids with Solu- Medrol 60 mg every every 8 hours decreased to every 12 hours, along with nebulizations and inhalers. Still continues to be on oxygen and now use of any accessory muscles appreciated. Combination of upper respiratory tract symptoms along with recent emotional stress. Also on IV antibiotics. Patient has been tachycardic On arrival and EKG reviewed. EKG shows irregularly irregular rhythm but most of the time is 100 to 130 bpm which is typical of multifocal atrial tachycardia. Has irregularly irregular rhythm with varying PP and MA intervals. 3 distinct P wave morphologies are also seen in the lead II. Also patient has underlying lung disease which could contribute's significantly for the multifocal atrial tachycardia Continue rate control with diltiazem 240 mg once daily as no beta-pratik can be given because of the as above. Will uptitrate the diltiazem to 360 mg once daily and if rate is not well-controlled. No anticoagulation required. Patient is mildly elevated troponins at 0.34 and 0.145. Troponin elevation mostly secondary to NSTEMI type II in the setting of supply/demand mismatch. Patient denies any Chest pain or chest pressure at the present moment. EKG showed marked without any acute ST-T changes history of ischemia. Patient is scheduled to have left and right heart cardiac catheterization on Wednesday as outpatient but cannot be done because of her acute hypoxic respiratory failure at the present point of time. Continue Plavix for now and high intensity statin. No beta-pratik because of asthma. No heparin drip required. Patient does have severe as noted above with a valve area of less than 0.5 cm?. Patient also has moderate MR and TR with moderate PAH noted on the previous echocardiogram in November 2024. Workup started as outpatient for the severe and as noted previously was scheduled for the left heart cardiac catheterization and right heart cardiac catheterization which will need to be postponed for now given her acute hypoxic respiratory failure. Will continue further workup of the severe as outpatient. 03/17/2025: Patient seen and examined at bedside. Patient continues to be short of breath, using accessory muscles, and primary team did consult pulmonary. Now on 2L NC. Pulmonary consultation was done with Dr. 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 On high-dose steroids along with nebulizations. Also reviewed her xray and feel there is fluid overload also and recommended to change to HD as PD does not work well after few years. Multiple Coil Winder at [place] failed to find extrapulmonary causes of dyspnea and was discovered to have . GPA was in remission for many years after initial diagnosis in [place] treated with prednisone and methotrexate 25 years ago , renal disease manifested later [facility] biopsy was inconclusive and repeat biopsy at [facility] showed findings consistent with GPA, started on rituximab and steroid used but progressed to ESRD over time around 2019 Recommended hemodialysis previously by me also during last admission but daughter, sons who are the caregivers were not ready for it. Other vitals are stable, creatinine at 6.7, and cracles appreciated throughout the lung mason. Will continue to monitor closely and fluid management as per nephrology as patient on dialysis. Abnormal thyroid function tests and primary team ordered further lab tests; ultrasound of the thyroid revealed bilateral vascular solid thyroid nodules, primary team may consider ultrasound-guided fine-needle aspiration of both nodules. On 03/13/2025 Dr. Olivares had about 30 minutes discussion with the patient's daughter regarding starting the patient on HD, at least for couple of months, and she reported she would decide about it with further discussion with other family members and decide about HD. Finally, on 03/15/2025, patient's family agreed for hemodialysis. After successful placement of IR hemodialysis catheter, she is undergoing hemodialysis session this afternoon. 03/17/2025: Patientis currently on high flow nasal cannulat, labs revealing improvement in white count to 15.7, improvement in BUN/creatinine with 39/3.0 respectively, after total of 2 HD session so far, and patient is getting another session of hemodialysis this morning. The patient is expected to get better with fluid overload after couple of hemodialysis sessions. We will increase diltiazem CD to 360 mg daily due to concern regarding tachycardia. Management of rest of the medical conditions as per primary team and other consultants. Thank you for the consult and allowing me to participate in the care of the patient. Cardiology will continue to follow. The patient's management plan was discussed with my attending physician MD Kevin Murcia MD, PGY3 Attending Provider Attestation/Addendum I have personally seen and examined the patient separately on the above date of service and discussed the plan of care with the resident. I reviewed the resident Dr. Kevin Sullivan consultation progress note and agree with the resident findings and plan in the note above and have also edited the documentation to reflect my findings and plan. Jori Olivares M.D. Interventional Cardiology
--- NOTE | 2025-03-17 10:08 | ESPR_ITS ---
<Statement entered by Yennifer Martinez MD - 03/26/25 14:16> I reviewed above note and agree with findings and plans. I have also personally examined the patient with medicine team and went over assessment and plan with medical team including corporate legal intern and resident physician. Documentation for date of: 03/17/25 No overnight events. Patient continues to have improved work of breathing, patient is on high flow with 18 Liters and Fio2 of 30%. Continue scheduled breathing treatments. Continue antibiotics. Methylprednisolone 60 mg IV BID. Second hemodylisis session removed 1.0 liter. Dilitiazem held this morning given dialysis session, Dilitiazem increased from 240 to 340 mg PO once daily.. Continue lacutlose for constipation. Repeat Cxr in AM. Subjective Subjective Interval history: Patient was evaluated bedside today and appeared to be in improved condition. Per patient's daughter, Dr. Patel, patient underwent dialysis without complications the previous night. Breath sounds were improved, with wheezing still noted on examination. Patient was satting high 90s on HFNC 18 L FiO2 25 in the morning and afternoon. FOBT positive overnight. GI consulted Dr. Abraham, appreciate recommendations. Exam Vital Signs Temp Pulse Resp BP Pulse Ox O2 Del Method O2 Flow Rate 97.8 F 98 17 126/74 94 L High Flow Nasal Cannula 18 03/17/25 08:00 03/17/25 10:00 03/17/25 08:00 03/17/25 10:00 03/17/25 08:00 03/17/25 08:00 03/17/25 08:00 FiO2 03/17/25 08:00 Narrative Exam General Appearance: Alert & Oriented X3, well-nourished female who is lying in bed in mild respiratory distress. HEENT: Skull symmetrical and atraumatic. Conjunctivae pink and moist. Pupils equal, round, reactive to light and accommodation (PERRL). External ear without lesion or discharge. Straight, nares patient, mucosa pink, no discharge. No thyroid nodule appreciated. No cervical lymphadenopathy. Cardio: Normal Rate and Rhythm with S1 and S2 heart sounds. No murmurs or extra heart sounds auscultated. No bruits on carotid auscultation. No peripheral edema or cyanosis. Lungs: Symmetric with good expansion. Chest and back non-tender. Breath sounds vesicular with wheezing. Abdomen: Non-tender, Non-distended, Normal Reactive Bowel Sounds Neuro: Alert, cooperative, oriented to person, place, and time. Speech clear. CN grossly intact. Upper motor strength 5/5 and Lower motor strength 5/5. Sensation intact. Objective Labs 03/17/25 05:16 03/17/25 05:16 Labs: Laboratory Results - last 24 hr 03/16/25 03/17/25 22:17 05:16 WBC 15.7 H RBC 2.84 L Hgb 8.5 L Hct 25.2 L MCV 89 MCH 29.9 MCHC 33.7 RDW Std Deviation 49.6 H Plt Count 208 D Neut % (Auto) 92 H Lymph % (Auto) 2 L [place] % (Auto) 4 Eos % (Auto) 0 Baso % (Auto) 0 Neut # (Auto) 14.5 H Lymph # (Auto) 0.4 L [place] # (Auto) 0.6 Eos # (Auto) 0.0 Baso # (Auto) 0.0 Immature Gran # (Auto) 0.27 H Absolute Nucleated RBC 0.00 Immature Gran % 2 H Nucleated RBC % 0 Sodium 136 Potassium 3.9 D Chloride 94 L Carbon Dioxide 30.7 Anion Gap 11 BUN 39 H Creatinine 3.0 H D Estim Creat Clear Calc 10.5 L eGFR 15 L BUN/Creatinine Ratio 13 Glucose 130 H Calculated Osmolality 283 Calcium 8.6 Corrected Calcium 8.9 Phosphorus 3.8 Magnesium 2.2 Total Bilirubin 0.6 AST 49 H ALT 96 H Alkaline Phosphatase 61 Total Protein 5.8 Albumin 3.6 Globulin 2.2 L Albumin/Globulin Ratio 1.6 Stool Occult Blood Positive A ABG Interpretation ABG results: 03/09/25 03/09/25 03/10/25 07:50 18:22 09:05 ABG pH 7.45 ABG pCO2 39 ABG pO2 289 H ABG HCO3 27 H ABG O2 Saturation 101 H ABG Base Excess 2 VBG pH 7.39 7.49 VBG pCO2 49 37 D VBG pO2 70 H 68 H VBG Base Excess 4 H 5 H 03/11/25 03/12/25 03/16/25 10:09 09:44 03:09 ABG pH 7.40 7.41 ABG pCO2 44 46 ABG pO2 80 L D 97 ABG HCO3 27 H 29 H ABG O2 Saturation 95 98 ABG Base Excess 2 4 H VBG pH 7.45 VBG pCO2 40 VBG pO2 39 D VBG Base Excess 4 H Quality Measures Quality Measures none Advance care planning discussed with:: patient Assessment & Plan Assessment Current Active Medications: Generic Name Dose Route Start Last Admin Trade Name Freq PRN Reason Stop Dose Admin Acetaminophen 650 mg 03/09/25 14:41 03/16/25 22:38 Acetaminophen 325 Mg Tablet PO 04/08/25 14:40 650 mg Q6H PRN Administration Mild Pain(1-3) or Fever >100.3 Albuterol/Ipratropium 3 ml 03/16/25 17:12 Albuterol/Ipratropium (Duoneb) Rt Annika 3 Ml Nebu INH 04/15/25 17:11 Q2HR PRN SHORTNESS OF BREATH OR WHEEZE Atorvastatin Calcium 40 mg 03/09/25 21:00 03/16/25 21:29 Atorvastatin Calcium 20 Mg Tablet PO 04/08/25 20:59 40 mg HS SABRINA Administration Dextrose 25 ml 03/12/25 08:16 Dextrose 50%-Water Inj 50 Ml Syringe IV 04/11/25 08:15 Q15MIN PRN BG 50-70 responsive npo pt Dextrose 50 ml 03/12/25 08:16 Dextrose 50%-Water Inj 50 Ml Syringe IV 04/11/25 08:15 Q15MIN PRN BG <50 OR BG <70 & pt unresponsive Diltiazem HCl 240 mg 03/10/25 09:00 03/16/25 09:18 Diltiazem Cd 120 Mg Capcr PO 04/09/25 08:59 240 mg QDAY SABRINA Administration Docusate Sodium 200 mg 03/15/25 09:00 03/16/25 09:17 Docusate Sod 100 Mg Capsule PO 04/14/25 08:59 200 mg QDAY SABRINA Administration Protocol Gabapentin 100 mg 03/11/25 12:15 03/12/25 11:28 Gabapentin 100 Mg Capsule PO 04/10/25 12:14 Not Given BID SABRINA Glucagon 1 mg 03/12/25 08:16 Glucagon Inj 1 Mg Vial IM Q15MIN PRN BG <70, and no IV access Guaifenesin 200 mg 03/16/25 14:00 03/17/25 06:35 Guaifenesin Syrup 200 Mg/10 Ml Udc PO 04/15/25 13:59 Not Given TID SABRINA Protocol Heparin Sodium (Porcine) 3,300 unit 03/15/25 15:49 03/16/25 16:34 Heparin Sod Inj 1000 Unit/Ml Vial 10 Ml INDWELLCAT 03/29/25 15:48 3,300 unit X1 PRN Administration DIALYSIS Albumin Human 25 gm in 100 mls @ 100 mls/min 03/15/25 15:49 03/16/25 15:57 Albuminar-25 Ivpb IV 03/18/25 15:48 100 mls/min PRN PRN Administration DIALYSIS Insulin Human Lispro 0 unit 03/12/25 11:30 03/17/25 07:21 Insulin Lispro (Admelog) 1 Unit/0.01 Ml Unit SC 04/11/25 11:29 Not Given AC SABRINA Protocol Ipratropium [place] 0.5 mg 03/10/25 15:00 03/17/25 07:13 Ipratropium Rt 0.5 Mg/ 2.5 Ml Nebu INH 04/09/25 14:59 0.5 mg Q4HRRT SABRINA Administration Lactulose 60 gm 03/17/25 10:07 Lactulose Syrup 20 Gm/30 Ml Udc PO 04/15/25 05:59 TID PRN constipation Protocol Levalbuterol HCl 1.25 mg 03/10/25 15:00 03/17/25 07:14 Levalbuterol Rt 1.25 Mg/0.5 Ml Nebu INH 04/09/25 14:59 1.25 mg Q4HRRT SABRINA Administration Levofloxacin 250 mg 03/17/25 09:00 Levofloxacin 250 Mg Tablet PO 03/24/25 08:59 QDAY SABRINA Melatonin 3 mg 03/09/25 23:18 03/15/25 18:33 Melatonin 3 Mg Tablet PO 04/09/25 20:59 3 mg HS PRN Administration insomnia Methimazole 5 mg 03/15/25 08:45 03/17/25 06:35 Methimazole 5 Mg Tablet PO 04/14/25 08:44 Not Given TID SABRINA Methylprednisolone Sodium Succinate 60 mg 03/16/25 21:00 03/16/25 21:29 Methylprednisolone Sod Succ 40 Mg Vial IVP 03/23/25 20:59 60 mg BID SABRINA Administration Ondansetron HCl 4 mg 03/09/25 14:41 Ondansetron Inj 2 Mg/Ml Inj 2 Ml IVP 04/08/25 14:40 Q6H PRN NAUSEA OR VOMITING Protocol Pantoprazole Sodium 40 mg 03/17/25 03:00 03/17/25 03:02 Pantoprazole Inj 40 Mg Vial IVP 04/16/25 02:59 40 mg BID SABRINA Administration Breztri (Budesonide, 2 ea 03/13/25 12:00 03/17/25 07:14 Glycopyrrolate And INH 04/12/25 11:59 2 puff Formoterol) BID SABRINA Administration Sennosides 1 tab 03/14/25 09:00 03/16/25 09:17 Senna Tablet PO 04/13/25 08:59 1 tab QDAY SABRINA Administration Protocol Sodium Chloride 3 ml 03/11/25 16:26 Sodium Chloride Rt Annika 0.9% 3 Ml Nebu INH 04/10/25 16:25 PRN PRN SOLN Plan Plan Patient is an 84-year-old female with a past medical history CHF HFpEF 55 to 60% (11/23/2024), systolic dysfunction, moderate PAH 55, moderate to severe with V-max 3.8, ESRD status post peritoneal dialysis dialysis, chronic asthma since early 20s, 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 #Acute hypoxic respiratory failure secondary to asthma exacerbation #Acute on Chronic Asthma exacerbation #Granulomatosis w/ Polyangiitis-formerly known as Antonia's Patient presented to the ED via EMS with a two day history of worsening shortness of breath. Patient's family noticed the patient wheezing while receiving dialysis and called EMS. While in the emergency room department, several episode of spO2 80s on nasal cannula-->transitioned to Bipap. While in ER, increased work of breathing, RR high 30s/40s with abdominal breathing noted, increase in FiO 10-->30. Repeat ABG pH 7.45, pO2 289, HC03 27-->decrease in FIO2 to 20. Daughter at bedside noted an URI several days ago and is concern this may have triggered current exacerbation. 03/11/2025 patient evaluated bedside, in acute respiratory distress, noted to have wheezing evidence of accessory muscles, trouble breathing, respiratory rate in the high 30s, saturating well on 20 L high flow nasal, oxygen, but increased work of breathing. Blood gas was ordered which showed pH and PO2 within normal range, given methylprednisone 125 mg x 1, ordered hour-long nebulization with albuterol, added budesonide nebulization. Consulted ICU/awning finisher Dr. Arellano, who recommended that given patient's diagnosis of Antonia's granulomatosis in the past, and history of longstanding asthma which was relatively well-controlled until recently, noted ANCA and MPO/AR-3 antibodies. Agreed with IV steroids for now, but patient might require increasing doses if acute flare of Antonia's granulomatosis. Also considering possibility of cardiac asthma given, severe aortic stenosis leading to worsening of asthma. Patient might benefit from early aortic valve replacement as soon as clinical condition is stable. Also consider trial of hemodialysis for adequate ultrafiltration as peritoneal dialysis unable to remove adequate fluid. 03/12/2025 patient noted to have respiratory rate of 20 currently on high flow oxygen 20 L satting 96 with FiO2 21; ABG pO2 80 HCO3 27 pH 7.40 pCO2 44. Blood culture negative after 48 hours, MRSA screen negative, and Peritoneal Dialysis Culture pending. 03/13/2025 patient noted to have respiratory rate of 20 currently weaning high flow oxygen to 15 L satting between 95-100 FiO2 21 in the morning. Respiratory rate 18 with 13 L high flow oxygen satting 92 FiO2 21 in the afternoon. 03/14/2025 patient noted to have respiratory rate <20 currently weaning to 5 L oxygen satting between 93-97 FiO2 21 in the morning. Respiratory rate <20 weaned to 3L oxygen satting 98 FiO2 in the afternoon. Rapid response 03/15 202 patient noted to have respiratory rate of 30 with pulse rate 119 on HFNC 30L oxygen satting 94 FiO2 21 Patient noted to have respiratory rate <20 weaning to 4L oxygen satting high 90s FiO2 21 later in the morning and afternoon. 03/16 overnight even for tachypnea and high blood pressure peaking at 184/99 following first hemodialysis session 03/15. Satting high 90s on HFNC 20L oxygen FiO2. Satting low 90s on HFNC 20L oxygen FiO2 25 in the afternoon. Patient satting high 90s on HFNC 30 L FiO2 30 in the evening. ABG pH: 7.4 HCO3: 29 pO2 98 03/17 Satting high 90s on HFNC 18L oxygen FiO2 25 in the morning and afternoon. Plan: -Continue Methylprednisolone 60 mg IVP BID -ICU consulted Dr. Griggs, recommend changing levalbuterol to every 2 hours with breathing treatments every 4 hours and cardioselective beta-pratik for aortic stenosis, added Duoneb 3 ml Q2HR PRN -Monitor oxygen levels -Levaquin 250 mg PO QD for possible pneumonia (03/17-03/24) -Started Guaifenesin 200 mg PO TID -Continue Levalbuterol 1.25 mg INH Q4HRRT possible change to Q2HRRT, Ipratropium 0.5 INH Q4HRRT -Discontinued Budenoside BIDRT -Azithromycin Course Completed (03/09/2025-03/12/2025) & Ceftriaxone 03/10/2025- 03/11/2025 #Acute on Chronic Congestive Heart Failure, worsening #CHF HFpEF 60-65% (03/12/2025) #Mild Pulmonary Vascular Congestion #Moderate to Severe Aortic Stenosis, AV vmax 3.8 m #Severe Mitral Regurgitation #Moderate PAH, 55 mmHg Patient likely acute on chronic congestive heart failure this, may only be mild exacerbation as pulmonary vascular congestion was less prominent as compared to other episode. Previous CHF exacerbation BNP 1691.Acute on chronic CHF exacerbation likely triggered by asthma exacerbation. Diagnostics: Echo (03/12/2025): Normal LV size and function. EF 60-65%. Diastolic dysfunction present but cannot be graded due to arrhythymia.Normal RV size and function. Estimated RVSP moderately elevated RVSP 50-55 mm hg.Moderate to Severe . AV vmax 3.8 m/s, Mean PG 38 mm hg. LATRICE 0.5 sq cm. -BNP 03/09 345; 03/15 1608 -Chest x-ray (03/10/2025): Mild chronic heart failure pattern, prominent vascular congestion-overall mild chornic heart failure -Chest x-ray (03/16/2025): Chronic heart failure pattern with vascular congestion, possible repeat CXR Plan: -Patient started on bipap -Strict Ins and Outs -Fluid Restrictions 1800 -Oxygen support -Cardiology consult Dr. Campa, recommend changing to hemodialysis from peritoneal dialysis #ESRD, Hemodialysis #Periotoneal Dialysis, Stopped #ESRD secondary to Granulomatosis Per patient history, follows Dr. Amezcua and Dr. Coley. Patient develoepd ESRD several years ago likely secondary to Granulomatosis. Peritoneal dialysis, daily. Consult nephrology for scheduled daily dialysis. Plan -Hemodialysis 03/16: removed 800 mL, 03/17/2025 1.0 L -Family would like to proceed with HD, NPO after-night, and ordered added. -Strict in and outs. -Stop Peritoneal dialysis -Avoid nephrotoxins, consider renal dosing -Nephrology Consulted, Dr. Amezcua, appreciate recommendations. -Peritoneal fluid culture: no growth #Acute Anemia Patient FOBT positive overnight 03/17 Pertinent labs: 03/17 MCV 89 RBC 2.84 Hgb 8.5 Hct 25.2 Plan: -GI consult, Dr Abraham, appreciate recommendations #Constipation Patient had not had a bowel movement in 5 days, prior to hard, pellet-like stools this morning. Patient has been given senna, docusate, lactulose, glycerin. KUB negative for obstructive patter. Plan: -Start lactulose 60 mg PO TID PRN -Oil enema, followed by possible fecal disimpaction if necessary #Concern for Hyperthyroidism Noted suppressed TSH and elevated T4 levels, limited utility of thyroid function test during acute illness and hospitalization. the patient will eventually require repeat thyroid function test once discharged to confirm thyroid disorders. Also patient has longstanding history of MAT likely secondary to pulmonary disorder, less likely influenced by thyroid. -Thyroid US: bilateral vascular thyroid nodules, consider fine needle aspiration; 03/15 TSH 0.02 T4 1.62 -TSI/TSH-R Antibodies pending; 03/11 TPO 1 -Repeat thyroid function testing in 3 to 4 weeks after discharge, and follow-up with baller tender -Continue methimazole 5 mg PO TID #MAT #Atrial Fibrillation, less likely #EKG Abnormalities Patient has a past medical history of previous reported Atrial Fibrillation, per daughter, was told it was less likely atrial fibrillation, decision was made for no Eliquis and only Plavix on board for history of CVA. This EKG read A.fib w/ rvr but not all leads irregular and some noted with possible p waves. r waves present, no deep q waves noted. V1/V2 possible t wave abnormalities. 03/14/2025 EKG ordered, noted HR 100 likely MAT, likely secondary to levalbuterol. Consider decreasing Levalbuterol doses as patient's work of breathing improves. Plan -Diltiazem 240 mg PO uptitrated to 360 mg PO QD for tachycardia per cardiology recommendation Dr. Olivares -AVOID BETA BLOCKERS GIVEN ASTHMA EXACERBATION #Mild Transaminitis #Possible Hepatopulmonary Syndrome Patient's AST remaining elevated; ALT trending upwards Pertinent labs: 03/09 AST/ALT 46/46; 03/11: 37/63; 03/14: 36/105; 03/16: 48/111 03/17: 49/96 Plan: Monitor and trend liver enzymes if concern, consider hepatitis panel Possible hepatopulmonary syndrome, due to potential fluid overload seen on CXR 03/16 #Mild Troponemia #NSTEMI, type II likely demand ischemia Mild elevation in Troponin likely in the setting of demand ischemia from asthma exacerbation. Denied chest pain, palpitations, or chest pressure. No st elevation noted. Plan -Repeat Troponin 03/10 peaked at 0.141. #Single Episode of Hematemsis #Normocytic Normochromic Anemia Pertinent lab values 03/15 MCV 84 Hgb 9.8 Hct 27.6 RBC 3.27 03/16 MCV 87 Hgb 9.5 Hct 27.8 RBC 3.19 Given past medical history of GERD, consider gastric ulcers-given reported coffee ground emesis vs Granulomatosis flare vs lower GI bleed. Plan: -Monitor hgb >7 goal -Consider occult blood AM, if worsening drop -Consider gastroenterology consult with Dr. Abraham, if repeat episodes of coffee ground emesis #History of CVA Past medical history of CVA Plan -plavix given coffee ground emesis. #GERD #Gastritis (?) Per the patient's daughter, the patient recently experienced coffee ground emesis w/ history of GERD. Plan: Continue Pantoprazole 40 mg PO QD-->Transition to Pantoprazole 40 mg IV BID (AM) #history of Fracture Neck of Right Femur Patient underwent surgical repair of closed right hip neck fracture on 12/01/[address] Lee Plan: Monitor for possible rehabilitation DVT prophylaxis: No DVT prophylaxis in setting of suspected GI bleed and anemia GI prophylaxis: IV Protonix qday Diet: Renal Diet Lines: Peripheral IV Code status: Full code Case discussed with attending physician Dr. Martinez and resident Dr. Angela Sena MS-4 - The patient's plan was discussed with attending Dr. Juan Miller MD PGY2 Internal Medicine Attending Provider Attestation/Addendum 84-year-old female with multiple comorbidities including heart failure with preserved EF with EF 55-60%, severe aortic stenosis with V-max 3.8, pulmonary hypertension, granulomatosis with polyangiitis with subsequent end-stage renal disease on peritoneal dialysis history of ischemic CVA with right-sided hemiparesis, hypertension, hyperlipidemia presented to the ER with shortness of breath found to have acute hypoxic respiratory failure multifactorial including asthma exacerbation and fluid overload state. Initially, patient did require BiPAP and advised to continue IV steroids, IV antibiotic therapy and plan for peritoneal dialysis. Furthermore, patient also has moderate to severe aortic stenosis with pulmonary arterial hypertension and plan to consult cardiology. Overnight, patient respiratory status improving currently on 10 L oxy mask. Discussed case with pulmonary and nephrology team and plan for a TDC placement for possible hemodialysis initiation. In addition, plan to continue IV steroids, IV antibiotic and peritoneal dialysis. Appreciate cardiology, pulmonary and nephrology input. I reviewed above note and agree with findings and plans. I have also personally examined the patient with medicine team and went over assessment and plan with medical team including corporate legal intern and resident physician.
[2025-03-17] MEDS: HEPARIN SOD INJ 1000 UNIT/ML VIAL 10 ML 3300 UNIT INDWELLCAT (12:26)
[2025-03-17] MEDS: DOCUSATE SOD 100 MG CAPSULE 200 MG PO (12:45)
[2025-03-17] MEDS: LEVOFLOXACIN 250 MG TABLET PO (12:45)
[2025-03-17] MEDS: DILTIAZEM CD 120 MG CAPCR PO (12:46)
[2025-03-17] MEDS: METHIMAZOLE 5 MG TABLET PO ×2 (14:25→21:51)
[2025-03-17] MEDS: guaiFENesin SYRUP 200 MG/10 ML UDC PO ×2 (14:25→21:51)
[2025-03-17] MEDS: DILTIAZEM CD 120 MG CAPCR 240 MG PO (15:35)
--- NOTE | 2025-03-17 19:53 | PD.IMCONS ---
HPI Data of Consult Requesting Physician: Yennifer Martinez MD Primary Care Provider: Jori Woodruff Consult Narrative Reason for consult: FOBT positive History of present illness: 89 years old female in hospital with acute hypoxic respiratory failure on high flow oxygen with critical aortic stenosis moderate MR and TR Switch from peritoneal dialysis to hemodialysis had already 2 sessions and the third session is tomorrow and improving I been consulted for Hemoccult positive stool she does have history of end-stage renal disease initially on peritoneal dialysis critical aortic stenosis severe aortic stenosis with moderate MR and TR Current hemoglobin hematocrit 8.5 and 29.2 with a platelet count of 208,000 and BUN/creatinine 39 and 3.0 cc:: cc: Yennifer Martinez MD Review of Systems Review of Systems Systems Reviewed: All systems reviewed, normal except as documented Past Medical History Surgical History OTHER SURGICAL HX: As in the history of present illness Meds Home Medications and Allergies Home Medications ?Medication ?Instructions ?Recorded ?Confirmed ?Type atorvastatin 40 mg tablet 40 mg PO QDAY 08/15/19 03/11/25 History acetaminophen 325 mg tablet 650 mg PO Q6H PRN fever or pain 03/11/25 03/11/25 History (Tactinal) diltiazem HCl 240 mg 240 mg PO DAILY 03/11/25 03/11/25 History capsule,extended release 24 hr Allergies Allergy/AdvReac Type Severity Reaction Status Date / Time shrimp Allergy Severe Wheezing Verified 01/01/25 10:01 NSAIDS (Non-Steroidal Allergy Intermediate Swelling Verified 01/01/25 10:01 Anti-Inflamma Penicillins Allergy Intermediate Rash Verified 01/01/25 10:01 Exam Vital Signs Temp Pulse Resp BP Pulse Ox O2 Del Method O2 Flow Rate 97.3 F 111 H 21 H 145/56 H 94 L High Flow Nasal Cannula 18 03/17/25 16:00 03/17/25 16:00 03/17/25 16:00 03/17/25 16:00 03/17/25 16:00 03/17/25 16:00 03/17/25 16:00 FiO2 30 03/17/25 16:00 Constitutional Comments: Chronically ill-appearing Routine Respiratory Exam Comments: On high flow nasal cannula Results Labs 03/17/25 05:16 03/17/25 05:16 Labs: Short CBC 03/17/25 Range/Units 05:16 WBC 15.7 H (3.6-11.0) Thou/mm3 Hgb 8.5 L (12.0-16.0) g/dL Hct 25.2 L (36.0-46.0) % Plt Count 208 D (140-440) Thou/mm3 BMP 03/17/25 05:16 Sodium 136 Potassium 3.9 D Chloride 94 L Carbon Dioxide 30.7 BUN 39 H Creatinine 3.0 H D Glucose 130 H Calcium 8.6 Liver Function 03/17/25 Range/Units 05:16 Total Bilirubin 0.6 (0.3-1.2) mg/dL AST 49 H (0-34) U/L ALT 96 H (10-49) U/L Alkaline Phosphatase 61 (46-116) U/L Albumin 3.6 (3.4-4.8) gm/dL ABG Interpretation ABG results: 03/09/25 03/09/25 03/10/25 07:50 18:22 09:05 ABG pH 7.45 ABG pCO2 39 ABG pO2 289 H ABG HCO3 27 H ABG O2 Saturation 101 H ABG Base Excess 2 VBG pH 7.39 7.49 VBG pCO2 49 37 D VBG pO2 70 H 68 H VBG Base Excess 4 H 5 H 03/11/25 03/12/25 03/16/25 10:09 09:44 03:09 ABG pH 7.40 7.41 ABG pCO2 44 46 ABG pO2 80 L D 97 ABG HCO3 27 H 29 H ABG O2 Saturation 95 98 ABG Base Excess 2 4 H VBG pH 7.45 VBG pCO2 40 VBG pO2 39 D VBG Base Excess 4 H Assessment and Plan Additional Assessment & Plan Additional Plan: # FOBT positive in a patient who has severe aortic stenosis 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 Since she has hypoxic respiratory failure At least at this point I will not subject the patient to any invasive GI workup till the respiratory status and the volume overload is corrected The patient needs anticoagulation for some reason she cannot be fully anticoagulated as she is not bleeding away And if she does bleed at that consider invasive GI workup Other medical problems include # Acute hypoxic respiratory failure on high flow oxygen # Severe aortic stenosis moderate MR and TR # End-stage renal disease on hemodialysis Will follow the patient Thank you very much for the opportunity to participate in the care of this patient
[2025-03-17] MEDS: ATORVASTATIN CALCIUM 20 MG TABLET 40 MG PO (21:51)
[2025-03-18] VITALS (21 sets, daily range): BP systolic 122–142; BP diastolic 66–99; PULSE 77–126; RESP 12–38; TEMP 36.2–36.7; O2SAT 92–100; BMI 28.3
[2025-03-18] MEDS: LEVALBUTEROL RT 1.25 MG/0.5 ML NEBU INH ×3 (02:41→10:00)
[2025-03-18] MEDS: IPRATROPIUM RT 0.5 MG/ 2.5 ML NEBU INH ×6 (02:41→23:13)
[2025-03-18] MEDS: METHIMAZOLE 5 MG TABLET PO ×2 (05:03→21:30)
[2025-03-18] MEDS: guaiFENesin SYRUP 200 MG/10 ML UDC PO ×2 (05:04→21:32)
[2025-03-18 06:45] LABS: Alanine Aminotransferase 82 U/L (10-49); Albumin, Serum 3.7 gm/dL (3.4-4.8); Albumin/Globulin Ratio 1.6 (1.2-2.2); Alkaline Phosphatase 59 U/L (46-116); Anion Gap 13 (7-16); Aspartate Amino Transferase 41 U/L (0-34); BUN/Creatinine Ratio 15 Ratio (12-20); Bilirubin,Total 0.6 mg/dL (0.3-1.2); Blood Urea Nitrogen 46 mg/dL (9-23); Calcium 8.6 mg/dL (8.3-10.6); Calcium (Corrected) 8.8 mg/dL (8.5-10.1); Carbon Dioxide 28.1 mMol/L (20.0-31.0); Chloride 95 mMol/L (98-107); Creatinine (Component) 3.1 mg/dL (0.6-1.3); Estimated Creatinine Clearance 10.2 mL/min (>60); Globulin 2.3 gm/dL (2.3-3.5); Glucose 142 mg/dL (74-106); Magnesium 2.2 mg/dL (1.6-2.6); Osmolality,Calculated 285 (275-295); Phosphorous 4.5 mg/dL (2.4-5.1); Potassium 4.6 mMol/L (3.4-5.1); Sodium 136 mMol/L (136-145); Total Protein 6.0 gm/dL (5.7-8.2); eGFR 14 See Note
[2025-03-18 06:46] LABS: Basophils # (Auto) 0.0 Thou/mm3 (0.0-0.2); Basophils % (Auto) 0 % (0-2.5); Eosinophils # (Auto) 0.0 Thou/mm3 (0.0-0.5); Eosinophils % (Auto) 0 % (0-10); Hematocrit 24.8 % (36.0-46.0); Hemoglobin 8.7 g/dL (12.0-16.0); Immature Granulocytes Auto 0.34 Thou/mm3 (0.00-0.00); Lymphocytes # (Auto) 0.3 Thou/mm3 (1.0-4.8); Lymphocytes % (Auto) 2 % (10-50); Mean Corpuscular HGB Conc 35.1 g/dl (31.0-37.0); Mean Corpuscular Hemoglobin 30.4 pg (25.0-35.0); Mean Corpuscular Volume 87 fL (80-100); Monocytes # (Auto) 0.5 Thou/mm3 (0.0-0.8); Monocytes % (Auto) 3 % (0-12); Neutrophils # (Auto) 16.4 Thou/mm3 (1.8-7.7); Neutrophils % (Auto) 93 % (37-80); Nucleated Red Blood Cell # 0.02 Thou/mm3 (0.00-0.00); Nucleated Red Blood Cell % 0 /100 WBC (0); Platelet Count 202 Thou/mm3 (140-440); RDW Standard Deviation 49.6 fL (36.4-46.3); Red Blood Count 2.86 Miln/mm3 (4.00-5.20); White Blood Count 17.6 Thou/mm3 (3.6-11.0)
--- NOTE | 2025-03-18 07:00 | XR_ITS ---
Examination: AP chest single view Technique one AP portable semiupright chest single view Date and time: March 18, 2025 0107 hours Comparison March 16, 2025 INDICATION: Asthma exacerbation. FINDINGS: [id number] CHF Moderately large cardiac contour prominent vascular congestion. Hilar edema Significant pneumonia right upper lobe and left base Right internal jugular dialysis catheter tip satisfactory position Prominent osteopenia IMPRESSION: [id number] CHF Significant pneumonia right upper lobe and left base
[2025-03-18] MEDS: BREZTRI 2 EA INH ×2 (07:18→21:25)
[2025-03-18] MEDS: DILTIAZEM CD 120 MG CAPCR 360 MG PO (08:54)
[2025-03-18] MEDS: DOCUSATE SOD 100 MG CAPSULE 200 MG PO (08:54)
[2025-03-18] MEDS: LEVOFLOXACIN 250 MG TABLET PO (08:55)
--- NOTE | 2025-03-18 10:02 | ESPR_ITS ---
Documentation for date of: 03/18/25 Subjective Subjective Interval history: Patient seen and examined at bedside. Patient continues to be short of breath, using accessory muscles, and primary team did consult pulmonary. Now on 2L NC. Pulmonary consultation was done with Dr. 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 On high-dose steroids along with nebulizations. Also reviewed her xray and feel there is fluid overload also and recommended to change to HD as PD does not work well after few years. Advertising Manager at [place] failed to find extrapulmonary causes of dyspnea and was discovered to have . GPA was in remission for many years after initial diagnosis in [place] treated with prednisone and methotrexate 25 years ago , renal disease manifested later [facility] biopsy was inconclusive and repeat biopsy at [facility] showed findings consistent with GPA, started on rituximab and steroid used but progressed to ESRD over time around 2020 Recommended hemodialysis previously by me also during last admission but daughter, sons who are the caregivers were not ready for it. Other vitals are stable, creatinine at 6.7, and cracles appreciated throughout the lung mason. Will continue to monitor closely and fluid management as per nephrology as patient on dialysis. Abnormal thyroid function tests and primary team ordered further lab tests; ultrasound of the thyroid revealed bilateral vascular solid thyroid nodules, primary team may consider ultrasound-guided fine-needle aspiration of both nodules. On 03/13/2025 Dr. Olivares had about 30 minutes discussion with the patient's daughter regarding starting the patient on HD, at least for couple of months, and she reported she would decide about it with further discussion with other family members and decide about HD. Finally, on 03/15/2025, patient's family agreed for hemodialysis. After successful placement of IR hemodialysis catheter, she is undergoing hemodialysis session this afternoon. 03/18/2025: Patient is currently on BiPAP, labs revealing mild worsening in white count to 17.6, improvement in BUN/creatinine, after total of 3 HD session so far. The patient is expected to get better with fluid overload after couple of hemodialysis sessions. We will increase diltiazem CD to 360 mg daily due to concern regarding tachycardia. Exam Vital Signs Temp Pulse Resp BP Pulse Ox O2 Del Method O2 Flow Rate 98.0 F 93 28 H 138/70 H 100 High Flow Nasal Cannula 22 03/18/25 04:00 03/18/25 08:54 03/18/25 07:28 03/18/25 08:54 03/18/25 07:28 03/18/25 04:00 03/18/25 07:28 FiO2 25 03/18/25 07:28 Narrative Exam General: Alert and oriented x3. In no acute distress. Eyes: Pupils are equal and reactive to light bilaterally. HEENT: Atraumatic, normocephalic. No JVD noted. Mucosa moist. Cardiovascular: Normal S1 and soft S2,. Tachycardic, 3/6 ejection systolic murmur heard at aortic area, 3/6 holosystolic murmur heard on the mitral area and parasternal area, trace peripheral pitting edema noted. Respiratory: Mild respiratory distress on oxygen via nasal cannula, use of accessory muscles appreciated, bilateral air entry present, wheezing noted. Significant crackles throughout the lung mason. Abdomen: Soft, nontender, nondistended. Skin: No rash. Warm to touch. Musculoskeletal: No gross injuries. Able to move all 4 extremities. Neuro: Alert and oriented x3. No focal neuro deficits. Psych: Mild improvement in low mood. Objective Labs 03/18/25 05:10 03/18/25 05:10 Labs: Laboratory Results - last 24 hr 03/18/25 05:10 WBC 17.6 H RBC 2.86 L Hgb 8.7 L Hct 24.8 L MCV 87 MCH 30.4 MCHC 35.1 RDW Std Deviation 49.6 H Plt Count 202 Neut % (Auto) 93 H Lymph % (Auto) 2 L [place] % (Auto) 3 Eos % (Auto) 0 Baso % (Auto) 0 Neut # (Auto) 16.4 H Lymph # (Auto) 0.3 L [place] # (Auto) 0.5 Eos # (Auto) 0.0 Baso # (Auto) 0.0 Immature Gran # (Auto) 0.34 H Absolute Nucleated RBC 0.02 H Immature Gran % 2 H Nucleated RBC % 0 Sodium 136 Potassium 4.6 D Chloride 95 L Carbon Dioxide 28.1 Anion Gap 13 BUN 46 H Creatinine 3.1 H Estim Creat Clear Calc 10.2 L eGFR 14 L* BUN/Creatinine Ratio 15 Glucose 142 H Calculated Osmolality 285 Calcium 8.6 Corrected Calcium 8.8 Phosphorus 4.5 Magnesium 2.2 Total Bilirubin 0.6 AST 41 H ALT 82 H Alkaline Phosphatase 59 Total Protein 6.0 Albumin 3.7 Globulin 2.3 Albumin/Globulin Ratio 1.6 ABG Interpretation ABG results: 03/09/25 03/09/25 03/10/25 07:50 18:22 09:05 ABG pH 7.45 ABG pCO2 39 ABG pO2 289 H ABG HCO3 27 H ABG O2 Saturation 101 H ABG Base Excess 2 VBG pH 7.39 7.49 VBG pCO2 49 37 D VBG pO2 70 H 68 H VBG Base Excess 4 H 5 H 03/11/25 03/12/25 03/16/25 10:09 09:44 03:09 ABG pH 7.40 7.41 ABG pCO2 44 46 ABG pO2 80 L D 97 ABG HCO3 27 H 29 H ABG O2 Saturation 95 98 ABG Base Excess 2 4 H VBG pH 7.45 VBG pCO2 40 VBG pO2 39 D VBG Base Excess 4 H Quality Measures Quality Measures none Advance care planning discussed with:: patient Assessment & Plan Assessment Current Active Medications: Generic Name Dose Route Start Last Admin Trade Name Freq PRN Reason Stop Dose Admin Acetaminophen 650 mg 03/09/25 14:41 03/16/25 22:38 Acetaminophen 325 Mg Tablet PO 04/08/25 14:40 650 mg Q6H PRN Administration Mild Pain(1-3) or Fever >100.3 Albuterol/Ipratropium 3 ml 03/16/25 17:12 Albuterol/Ipratropium (Duoneb) Rt Annika 3 Ml Nebu INH 04/15/25 17:11 Q2HR PRN SHORTNESS OF BREATH OR WHEEZE Atorvastatin Calcium 40 mg 03/09/25 21:00 03/17/25 21:51 Atorvastatin Calcium 20 Mg Tablet PO 04/08/25 20:59 40 mg HS SABRINA Administration Dextrose 25 ml 03/12/25 08:16 Dextrose 50%-Water Inj 50 Ml Syringe IV 04/11/25 08:15 Q15MIN PRN BG 50-70 responsive npo pt Dextrose 50 ml 03/12/25 08:16 Dextrose 50%-Water Inj 50 Ml Syringe IV 04/11/25 08:15 Q15MIN PRN BG <50 OR BG <70 & pt unresponsive Diltiazem HCl 360 mg 03/18/25 09:00 03/18/25 08:54 Diltiazem Cd 120 Mg Capcr PO 04/17/25 08:59 360 mg QDAY SABRINA Administration Docusate Sodium 200 mg 03/15/25 09:00 03/18/25 08:54 Docusate Sod 100 Mg Capsule PO 04/14/25 08:59 200 mg QDAY SABRINA Administration Protocol Gabapentin 100 mg 03/17/25 21:44 Gabapentin 100 Mg Capsule PO 04/16/25 19:59 HS SABRINA Glucagon 1 mg 03/12/25 08:16 Glucagon Inj 1 Mg Vial IM Q15MIN PRN BG <70, and no IV access Guaifenesin 200 mg 03/16/25 14:00 03/18/25 05:04 Guaifenesin Syrup 200 Mg/10 Ml Udc PO 04/15/25 13:59 200 mg TID SABRINA Administration Protocol Heparin Sodium (Porcine) 3,300 unit 03/15/25 15:49 03/17/25 12:26 Heparin Sod Inj 1000 Unit/Ml Vial 10 Ml INDWELLCAT 03/29/25 15:48 3,300 unit X1 PRN Administration DIALYSIS Albumin Human 25 gm in 100 mls @ 100 mls/min 03/15/25 15:49 03/16/25 15:57 Albuminar-25 Ivpb IV 03/18/25 15:48 100 mls/min PRN PRN Administration DIALYSIS Insulin Human Lispro 0 unit 03/12/25 11:30 03/17/25 17:53 Insulin Lispro (Admelog) 1 Unit/0.01 Ml Unit SC 04/11/25 11:29 Not Given AC SABRINA Protocol Ipratropium [place] 0.5 mg 03/10/25 15:00 03/18/25 10:00 Ipratropium Rt 0.5 Mg/ 2.5 Ml Nebu INH 04/09/25 14:59 0.5 mg Q4HRRT SABRINA Administration Lactulose 60 gm 03/17/25 10:07 Lactulose Syrup 20 Gm/30 Ml Udc PO 04/15/25 05:59 TID PRN constipation Protocol Levalbuterol HCl 1.25 mg 03/10/25 15:00 03/18/25 10:00 Levalbuterol Rt 1.25 Mg/0.5 Ml Nebu INH 04/09/25 14:59 1.25 mg Q4HRRT SABRINA Administration Levofloxacin 250 mg 03/17/25 09:00 03/18/25 08:55 Levofloxacin 250 Mg Tablet PO 03/24/25 08:59 250 mg QDAY SABRINA Administration Melatonin 3 mg 03/09/25 23:18 03/15/25 18:33 Melatonin 3 Mg Tablet PO 04/09/25 20:59 3 mg HS PRN Administration insomnia Methimazole 5 mg 03/15/25 08:45 03/18/25 05:03 Methimazole 5 Mg Tablet PO 04/14/25 08:44 5 mg TID SABRINA Administration Methylprednisolone Sodium Succinate 60 mg 03/16/25 21:00 03/18/25 08:56 Methylprednisolone Sod Succ 40 Mg Vial IVP 03/23/25 20:59 60 mg BID SABRINA Administration Ondansetron HCl 4 mg 03/09/25 14:41 Ondansetron Inj 2 Mg/Ml Inj 2 Ml IVP 04/08/25 14:40 Q6H PRN NAUSEA OR VOMITING Protocol Pantoprazole Sodium 40 mg 03/17/25 03:00 03/18/25 08:55 Pantoprazole Inj 40 Mg Vial IVP 04/16/25 02:59 40 mg BID SABRINA Administration Breztri (Budesonide, 2 ea 03/13/25 12:00 03/18/25 07:18 Glycopyrrolate And INH 04/12/25 11:59 2 puff Formoterol) BID SABRINA Administration Sennosides 1 tab 03/14/25 09:00 03/18/25 08:54 Senna Tablet PO 04/13/25 08:59 1 tab QDAY SABRINA Administration Protocol Sodium Chloride 3 ml 03/11/25 16:26 Sodium Chloride Rt Annika 0.9% 3 Ml Nebu INH 04/10/25 16:25 PRN PRN SOLN Trazodone HCl 25 mg 03/17/25 22:10 03/17/25 22:16 Trazodone Hcl 50 Mg Tablet PO 04/16/25 22:09 25 mg HS SABRINA Administration Plan A 84-year-old female with a past medical history of severe aortic stenosis with a valve area of 0.5 cm?, moderate MR and TR, moderate PAH, preserved EF with diastolic dysfunction, end-stage renal disease on peritoneal dialysis for the last 4 to 5 years, Antonia's granulomatosis diagnosed 25 years ago, chronic severe asthma since her early 20s, history of multifocal atrial tachycardia, 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 1. Acute hypoxic respiratory failure mostly secondary to fluid overload 2/2 failing PD, and 2. Acute asthma exacerbation 3. Severe aortic stenosis with a valve area less than 0.5 cm? 4. End-stage renal disease on peritoneal dialysis for past 4 to 5 years mostly secondary to Antonia's granulomatosis 5. Abnormal thyroid function tests 6. Multifocal atrial tachycardia 7. Valvular heart disease with severe aortic stenosis, moderate MR and TR 8. Moderate pulmonary artery pretension with an RVSP of 55 mmHg 9. Chronic diastolic congestive heart failure 10. 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 Patient started on high-dose steroids with Solu- Medrol 60 mg every every 8 hours decreased to every 12 hours, along with nebulizations and inhalers. Still continues to be on oxygen and now use of any accessory muscles appreciated. Combination of upper respiratory tract symptoms along with recent emotional stress. Also on IV antibiotics. Patient has been tachycardic On arrival and EKG reviewed. EKG shows irregularly irregular rhythm but most of the time is 100 to 130 bpm which is typical of multifocal atrial tachycardia. Has irregularly irregular rhythm with varying PP and VA intervals. 3 distinct P wave morphologies are also seen in the lead II. Also patient has underlying lung disease which could contribute's significantly for the multifocal atrial tachycardia Continue rate control with diltiazem 240 mg once daily as no beta-pratik can be given because of the as above. Will uptitrate the diltiazem to 360 mg once daily and if rate is not well-controlled. No anticoagulation required. Patient is mildly elevated troponins at 0.34 and 0.145. Troponin elevation mostly secondary to NSTEMI type II in the setting of supply/demand mismatch. Patient denies any Chest pain or chest pressure at the present moment. EKG showed marked without any acute ST-T changes history of ischemia. Patient is scheduled to have left and right heart cardiac catheterization on Wednesday as outpatient but cannot be done because of her acute hypoxic respiratory failure at the present point of time. Continue Plavix for now and high intensity statin. No beta-pratik because of asthma. No heparin drip required. Patient does have severe as noted above with a valve area of less than 0.5 cm?. Patient also has moderate MR and TR with moderate PAH noted on the previous echocardiogram in November 2024. Workup started as outpatient for the severe and as noted previously was scheduled for the left heart cardiac catheterization and right heart cardiac catheterization which will need to be postponed for now given her acute hypoxic respiratory failure. Will continue further workup of the severe as outpatient. 03/17/2025: Patient seen and examined at bedside. Patient continues to be short of breath, using accessory muscles, and primary team did consult pulmonary. Now on 2L NC. Pulmonary consultation was done with Dr. 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 On high-dose steroids along with nebulizations. Also reviewed her xray and feel there is fluid overload also and recommended to change to HD as PD does not work well after few years. Advertising Manager at [place] failed to find extrapulmonary causes of dyspnea and was discovered to have . GPA was in remission for many years after initial diagnosis in [place] treated with prednisone and methotrexate 25 years ago , renal disease manifested later [facility] biopsy was inconclusive and repeat biopsy at [facility] [place] showed findings consistent with GPA, started on rituximab and steroid used but progressed to ESRD over time around 2019 Recommended hemodialysis previously by me also during last admission but daughter, sons who are the caregivers were not ready for it. Other vitals are stable, creatinine at 6.7, and cracles appreciated throughout the lung mason. Will continue to monitor closely and fluid management as per nephrology as patient on dialysis. Abnormal thyroid function tests and primary team ordered further lab tests; ultrasound of the thyroid revealed bilateral vascular solid thyroid nodules, primary team may consider ultrasound-guided fine-needle aspiration of both nodules. On 03/13/2025 Dr. Olivares had about 30 minutes discussion with the patient's daughter regarding starting the patient on HD, at least for couple of months, and she reported she would decide about it with further discussion with other family members and decide about HD. Finally, on 03/15/2025, patient's family agreed for hemodialysis. After successful placement of IR hemodialysis catheter, she is undergoing hemodialysis session this afternoon. 03/18/2025: Patient is currently on BiPAP, labs revealing mild worsening in white count to 17.6, improvement in BUN/creatinine, after total of 3 HD session so far. The patient is expected to get better with fluid overload after couple of hemodialysis sessions. We will increase diltiazem CD to 360 mg daily due to concern regarding tachycardia. Management of rest of the medical conditions as per primary team and other consultants. Thank you for the consult and allowing me to participate in the care of the patient. Cardiology will continue to follow. The patient's management plan was discussed with my attending physician MD Kevin Murcia MD, PGY3 Attending Provider Attestation/Addendum I have personally seen and examined the patient separately on the above date of service and discussed the plan of care with the resident. I reviewed the resident Dr. Kevin Sullivan consultation progress note and agree with the resident findings and plan in the note above and have also edited the documentation to reflect my findings and plan. Jori Olivares M.D. Interventional Cardiology
[2025-03-18] MEDS: ALBUTEROL/IPRATROPIUM (Duoneb) RT SOL 3 ML NEBU INH (10:47)
[2025-03-18] MEDS: ALBUTEROL RT 2.5 MG/0.5 ML NEBU INH (10:47)
[2025-03-18] MEDS: ACETYLCYSTEINE RT SOL 10% 4 ML NEBU 3 ML INH (10:48)
--- NOTE | 2025-03-18 11:34 | PC.SS ---
Rounding note: Patient will need HD chairtime scheduled. Referral submitted via [facility] to [facility] [phone]. Discharging home when medically clear.
[2025-03-18] MEDS: ALBUTEROL RT 2.5 MG/0.5 ML NEBU 5 MG INH ×3 (13:48→23:13)
--- NOTE | 2025-03-18 13:52 | ESPR_ITS ---
Documentation for date of: 03/18/25 Subjective Subjective Interval history: Patient evaluated bedside, seems more drowsy than usual, was on high flow oxygen 20 L increased from 18 L overnight, patient was evaluated by customer service representative teller Dr. Griggs who started patient on BiPAP, concerned about increased work of breathing. Patient's son was present at the bedside, spoke to patient's daughter Jorge over the phone in the presence of son, went over need for escalating to BiPAP due to respiratory distress. Agreed with proceeding with CT chest to better evaluate residual infiltrates superimposed pneumonia, likely hospital-acquired pneumonia. Patient currently on oral Levaquin 250, which has antipseudomonal activity but noted no improvement. Switching antibiotics to vancomycin and cefepime, until sputum culture results. Pending serology for Antonia's granulomatosis antibodies. Hospital Mortician recommended a repeat session of hemodialysis today, to remove more fluid, but family objected to repeat hemodialysis. Exam Vital Signs Temp Pulse Resp BP Pulse Ox O2 Del Method O2 Flow Rate 97.1 F 120 H 36 H 138/70 H 92 L High Flow Nasal Cannula 25 03/18/25 08:00 03/18/25 13:48 03/18/25 11:11 03/18/25 08:54 03/18/25 11:11 03/18/25 08:00 03/18/25 10:50 FiO2 30 03/18/25 11:11 Narrative Exam General Appearance: Somnolent but arousable, able to respond to simple questions, generally weak, resting in the bed in a reclined position, on BiPAP, drowsy but arousable. HEENT: Skull symmetrical and atraumatic. Conjunctivae pink and moist. Pupils equal, round, reactive to light and accommodation (PERRL). External ear without lesion or discharge. Straight, nares patient, mucosa pink, no discharge. No thyroid nodule appreciated. No cervical lymphadenopathy. Cardio: Irregular rhythm, Lungs: Labored breathing, coarse crackles and rhonchi more prominent on the auscultation of right chest. Wheezing on auscultation of left chest. Abdomen: Non-tender, Non-distended, Normal Reactive Bowel Sounds Neuro: Somnolent, cooperative, oriented to person, place, and time. Speech clear. CN grossly intact. Upper motor strength 4 /5 and Lower motor strength 4 /5. Sensation intact. Objective Labs 03/18/25 05:10 03/18/25 05:10 Labs: Laboratory Results - last 24 hr 03/18/25 05:10 WBC 17.6 H RBC 2.86 L Hgb 8.7 L Hct 24.8 L MCV 87 MCH 30.4 MCHC 35.1 RDW Std Deviation 49.6 H Plt Count 202 Neut % (Auto) 93 H Lymph % (Auto) 2 L [place] % (Auto) 3 Eos % (Auto) 0 Baso % (Auto) 0 Neut # (Auto) 16.4 H Lymph # (Auto) 0.3 L [place] # (Auto) 0.5 Eos # (Auto) 0.0 Baso # (Auto) 0.0 Immature Gran # (Auto) 0.34 H Absolute Nucleated RBC 0.02 H Immature Gran % 2 H Nucleated RBC % 0 Sodium 136 Potassium 4.6 D Chloride 95 L Carbon Dioxide 28.1 Anion Gap 13 BUN 46 H Creatinine 3.1 H Estim Creat Clear Calc 10.2 L eGFR 14 L* BUN/Creatinine Ratio 15 Glucose 142 H Calculated Osmolality 285 Calcium 8.6 Corrected Calcium 8.8 Phosphorus 4.5 Magnesium 2.2 Total Bilirubin 0.6 AST 41 H ALT 82 H Alkaline Phosphatase 59 Total Protein 6.0 Albumin 3.7 Globulin 2.3 Albumin/Globulin Ratio 1.6 ABG Interpretation ABG results: 03/09/25 03/09/25 03/10/25 07:50 18:22 09:05 ABG pH 7.45 ABG pCO2 39 ABG pO2 289 H ABG HCO3 27 H ABG O2 Saturation 101 H ABG Base Excess 2 VBG pH 7.39 7.49 VBG pCO2 49 37 D VBG pO2 70 H 68 H VBG Base Excess 4 H 5 H 03/11/25 03/12/25 03/16/25 10:09 09:44 03:09 ABG pH 7.40 7.41 ABG pCO2 44 46 ABG pO2 80 L D 97 ABG HCO3 27 H 29 H ABG O2 Saturation 95 98 ABG Base Excess 2 4 H VBG pH 7.45 VBG pCO2 40 VBG pO2 39 D VBG Base Excess 4 H Quality Measures Quality Measures none Advance care planning discussed with:: patient Assessment & Plan Assessment Current Active Medications: Generic Name Dose Route Start Last Admin Trade Name Freq PRN Reason Stop Dose Admin Acetaminophen 650 mg 03/09/25 14:41 03/16/25 22:38 Acetaminophen 325 Mg Tablet PO 04/08/25 14:40 650 mg Q6H PRN Administration Mild Pain(1-3) or Fever >100.3 Albuterol 5 mg 03/18/25 15:00 03/18/25 13:48 Albuterol Rt 2.5 Mg/0.5 Ml Nebu INH 04/17/25 14:59 5 mg Q4HRRT SABRINA Administration Albuterol/Ipratropium 3 ml 03/16/25 17:12 Albuterol/Ipratropium (Duoneb) Rt Annika 3 Ml Nebu INH 04/15/25 17:11 Q2HR PRN SHORTNESS OF BREATH OR WHEEZE Atorvastatin Calcium 40 mg 03/09/25 21:00 03/17/25 21:51 Atorvastatin Calcium 20 Mg Tablet PO 04/08/25 20:59 40 mg HS SABRINA Administration Dextrose 25 ml 03/12/25 08:16 Dextrose 50%-Water Inj 50 Ml Syringe IV 04/11/25 08:15 Q15MIN PRN BG 50-70 responsive npo pt Dextrose 50 ml 03/12/25 08:16 Dextrose 50%-Water Inj 50 Ml Syringe IV 04/11/25 08:15 Q15MIN PRN BG <50 OR BG <70 & pt unresponsive Diltiazem HCl 360 mg 03/18/25 09:00 03/18/25 08:54 Diltiazem Cd 120 Mg Capcr PO 04/17/25 08:59 360 mg QDAY SABRINA Administration Glucagon 1 mg 03/12/25 08:16 Glucagon Inj 1 Mg Vial IM Q15MIN PRN BG <70, and no IV access Guaifenesin 200 mg 03/16/25 14:00 03/18/25 05:04 Guaifenesin Syrup 200 Mg/10 Ml Udc PO 04/15/25 13:59 200 mg TID SABRINA Administration Protocol Heparin Sodium (Porcine) 3,300 unit 03/15/25 15:49 03/17/25 12:26 Heparin Sod Inj 1000 Unit/Ml Vial 10 Ml INDWELLCAT 03/29/25 15:48 3,300 unit X1 PRN Administration DIALYSIS Albumin Human 25 gm in 100 mls @ 100 mls/min 03/15/25 15:49 03/16/25 15:57 Albuminar-25 Ivpb IV 03/18/25 15:48 100 mls/min PRN PRN Administration DIALYSIS Insulin Human Lispro 0 unit 03/12/25 11:30 03/18/25 07:30 Insulin Lispro (Admelog) 1 Unit/0.01 Ml Unit SC 04/11/25 11:29 Not Given AC SABRINA Protocol Ipratropium [place] 0.5 mg 03/10/25 15:00 03/18/25 13:48 Ipratropium Rt 0.5 Mg/ 2.5 Ml Nebu INH 04/09/25 14:59 0.5 mg Q4HRRT SABRINA Administration Lactulose 60 gm 03/17/25 10:07 Lactulose Syrup 20 Gm/30 Ml Udc PO 04/15/25 05:59 TID PRN constipation Protocol Levofloxacin 250 mg 03/17/25 09:00 03/18/25 08:55 Levofloxacin 250 Mg Tablet PO 03/24/25 08:59 250 mg QDAY SABRINA Administration Melatonin 3 mg 03/09/25 23:18 03/15/25 18:33 Melatonin 3 Mg Tablet PO 04/09/25 20:59 3 mg HS PRN Administration insomnia Methimazole 5 mg 03/15/25 08:45 03/18/25 05:03 Methimazole 5 Mg Tablet PO 04/14/25 08:44 5 mg TID SABRINA Administration Methylprednisolone Sodium Succinate 40 mg 03/18/25 21:00 Methylprednisolone Sod Succ 40 Mg Vial IVP 03/25/25 20:59 BID SABRINA Ondansetron HCl 4 mg 03/09/25 14:41 Ondansetron Inj 2 Mg/Ml Inj 2 Ml IVP 04/08/25 14:40 Q6H PRN NAUSEA OR VOMITING Protocol Pantoprazole Sodium 40 mg 03/17/25 03:00 03/18/25 08:55 Pantoprazole Inj 40 Mg Vial IVP 04/16/25 02:59 40 mg BID SABRINA Administration Breztri (Budesonide, 2 ea 03/13/25 12:00 03/18/25 07:18 Glycopyrrolate And INH 04/12/25 11:59 2 puff Formoterol) BID SABRINA Administration Sodium Chloride 3 ml 03/11/25 16:26 Sodium Chloride Rt Annika 0.9% 3 Ml Nebu INH 04/10/25 16:25 PRN PRN SOLN Trazodone HCl 25 mg 03/18/25 13:50 Trazodone Hcl 50 Mg Tablet PO 04/16/25 22:09 HS PRN insomnia Plan Plan Patient is an 84-year-old female with a past medical history CHF HFpEF 55 to 60% (11/23/2024), systolic dysfunction, moderate PAH 55, moderate to severe with V-max 3.8, ESRD status post peritoneal dialysis dialysis, chronic asthma since early 20s, 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 # Acute on chronic hypoxic respiratory failure # Concern for HCAP # Flash pulmonary edema, secondary to severe # History of Antonia's granulomatosis Patient presented to the ED via EMS with a two day history of worsening shortness of breath. Patient's family noticed the patient wheezing while receiving dialysis and called EMS. While in the emergency room department, several episode of spO2 80s on nasal cannula-->transitioned to Bipap. While in ER, increased work of breathing, RR high 30s/40s with abdominal breathing noted, increase in FiO 10-->30. Repeat ABG pH 7.45, pO2 289, HC03 27-->decrease in FIO2 to 20. Daughter at bedside noted an URI several days ago and is concern this may have triggered current exacerbation. Patient has already received antibiotics, azithromycin Course Completed (03/09/2025-03/12/2025) & Ceftriaxone 03/10/2025- 03/11/2025 Levaquin 250 mg PO QD for possible pneumonia (03/17-03/18/2025. Noted improvement in chest imaging following hemodialysis, but persistent infiltrate right lung, possibly pneumonia, hospital-acquired. Will start patient on vancomycin and cefepime, sputum cultures ordered. Plan: ? Pulmonology consult to Dr. Arellano was placed, appreciate recommendations ? ICU consult to Dr. Griggs was placed, appreciate recommendations ? Every 4 hours nebulizations ? Chest physiotherapy ? Guaifenesin 200 mg 3 times daily ? Continue Methylprednisolone 40 twice daily ? IgE levels within normal limits, pending antibody levels and serology for Antonia's granulomatosis, may be a candidate for pulsed steroid therapy if high titers noted. ? Follow sputum cultures ? BiPAP initiated, follow-up blood gas ? CT chest without con ordered ? Continue hemodialysis #Acute on Chronic Congestive Heart Failure, worsening #CHF HFpEF 60-65% (03/12/2025) #Mild Pulmonary Vascular Congestion #Moderate to Severe Aortic Stenosis, AV vmax 3.8 m #Severe Mitral Regurgitation #Moderate PAH, 55 mmHg Patient likely acute on chronic congestive heart failure this, may only be mild exacerbation as pulmonary vascular congestion was less prominent as compared to other episode. Previous CHF exacerbation BNP 1691.Acute on chronic CHF exacerbation likely triggered by asthma exacerbation. Diagnostics: Echo (03/12/2025): Normal LV size and function. EF 60-65%. Diastolic dysfunction present but cannot be graded due to arrhythymia.Normal RV size and function. Estimated RVSP moderately elevated RVSP 50-55 mm hg.Moderate to Severe . AV vmax 3.8 m/s, Mean PG 38 mm hg. LATRICE 0.5 sq cm. -BNP 03/09 345; 03/15 1608 -Chest x-ray (03/10/2025): Mild chronic heart failure pattern, prominent vascular congestion-overall mild chornic heart failure -Chest x-ray (03/16/2025): Chronic heart failure pattern with vascular congestion, possible repeat CXR Plan: -Patient started on bipap -Strict Ins and Outs -Fluid Restrictions 1800 -Oxygen support -Cardiology consult Dr. Campa, recommend changing to hemodialysis from peritoneal dialysis #ESRD, Hemodialysis #Periotoneal Dialysis, Stopped #ESRD secondary to Granulomatosis Per patient history, follows Dr. Amezcua and Dr. Coley. Patient develoepd ESRD several years ago likely secondary to Granulomatosis. Peritoneal dialysis, daily. Consult nephrology for scheduled daily dialysis. Plan -Hemodialysis 03/16: removed 800 mL, 03/17/2025 1.0 L -Family would like to proceed with HD, NPO after-night, and ordered added. -Strict in and outs. -Stop Peritoneal dialysis -Avoid nephrotoxins, consider renal dosing -Nephrology Consulted, Dr. Amezcua, appreciate recommendations. -Peritoneal fluid culture: no growth #Acute Anemia Patient FOBT positive overnight 03/17 Pertinent labs: 03/17 MCV 89 RBC 2.84 Hgb 8.5 Hct 25.2 Plan: -GI consult, Dr Abraham, appreciate recommendations #Constipation Patient had not had a bowel movement in 5 days, prior to hard, pellet-like stools this morning. Patient has been given senna, docusate, lactulose, glycerin. KUB negative for obstructive patter. Plan: -Start lactulose 60 mg PO TID PRN -Oil enema, followed by possible fecal disimpaction if necessary #Concern for Hyperthyroidism Noted suppressed TSH and elevated T4 levels, limited utility of thyroid function test during acute illness and hospitalization. the patient will eventually require repeat thyroid function test once discharged to confirm thyroid disorders. Also patient has longstanding history of MAT likely secondary to pulmonary disorder, less likely influenced by thyroid. -Thyroid US: bilateral vascular thyroid nodules, consider fine needle aspiration; 03/15 TSH 0.02 T4 1.62 -TSI/TSH-R Antibodies pending; 03/11 TPO 1 -Repeat thyroid function testing in 3 to 4 weeks after discharge, and follow-up with potato grader -Continue methimazole 5 mg PO TID #MAT #Atrial Fibrillation, less likely #EKG Abnormalities Patient has a past medical history of previous reported Atrial Fibrillation, per daughter, was told it was less likely atrial fibrillation, decision was made for no Eliquis and only Plavix on board for history of CVA. This EKG read A.fib w/ rvr but not all leads irregular and some noted with possible p waves. r waves present, no deep q waves noted. V1/V2 possible t wave abnormalities. 03/14/2025 EKG ordered, noted HR 100 likely MAT, likely secondary to levalbuterol. Consider decreasing Levalbuterol doses as patient's work of breathing improves. Plan -Diltiazem 240 mg PO uptitrated to 360 mg PO QD for tachycardia per cardiology recommendation Dr. Olivares -AVOID BETA BLOCKERS GIVEN ASTHMA EXACERBATION #Mild Transaminitis #Possible Hepatopulmonary Syndrome Patient's AST remaining elevated; ALT trending upwards Pertinent labs: 03/09 AST/ALT 46/46; 03/11: 37/63; 03/14: 36/105; 03/16: 48/111 03/17: 49/96 Plan: Monitor and trend liver enzymes if concern, consider hepatitis panel Possible hepatopulmonary syndrome, due to potential fluid overload seen on CXR 03/16 #Mild Troponemia #NSTEMI, type II likely demand ischemia Mild elevation in Troponin likely in the setting of demand ischemia from asthma exacerbation. Denied chest pain, palpitations, or chest pressure. No st elevation noted. Plan -Repeat Troponin 03/10 peaked at 0.141. #Single Episode of Hematemsis #Normocytic Normochromic Anemia Pertinent lab values 03/15 MCV 84 Hgb 9.8 Hct 27.6 RBC 3.27 03/16 MCV 87 Hgb 9.5 Hct 27.8 RBC 3.19 Given past medical history of GERD, consider gastric ulcers-given reported coffee ground emesis vs Granulomatosis flare vs lower GI bleed. Plan: -Monitor hgb >7 goal -Consider occult blood AM, if worsening drop -Consider gastroenterology consult with Dr. Abraham, if repeat episodes of coffee ground emesis #History of CVA Past medical history of CVA Plan -plavix given coffee ground emesis. #GERD #Gastritis (?) Per the patient's daughter, the patient recently experienced coffee ground emesis w/ history of GERD. Plan: Continue Pantoprazole 40 mg PO QD-->Transition to Pantoprazole 40 mg IV BID (AM) #history of Fracture Neck of Right Femur Patient underwent surgical repair of closed right hip neck fracture on 12/01/[address] Lee Plan: Monitor for possible rehabilitation DVT prophylaxis: No DVT prophylaxis in setting of suspected GI bleed and anemia GI prophylaxis: IV Protonix qday Diet: Renal Diet Lines: Peripheral IV Code status: Full code The patient's plan was discussed with attending Dr. Denise Neely pgy 3 Attending Provider Attestation/Addendum I, Kandi Walker, , attest that I was physically present for the tolliver portions of the service and evaluated the patient with the resident and I reviewed and discussed the case with the resident and agree with the resident's findings and plans of care as documented above Patient seen and evaluated this AM. She remained on HFNC with flow of 25L/min and FIO2 of 30%. Patient was reportedly more somnolent than her usual and more labored with her breathing in comparison to the past few days. CXR was done this morning showing opacities in her right lung that appear to have some central clearing of the right lung. Patient was evaluated by customer service representative teller this morning who recommended albuterol of 5mg q4hr scheduled instead with ipratropium due to concern for pulmonary versus cardiac wheeze. Patient was also placed on BiPap due to increased work of breathing. Patient endorsed some discomfort with BiPap mask on my evaluation and shortness of breath. Patient continued to have labored breathing. Patient has scattered rhonchi in b/l lung mason, Right>>left and wheezing noted in the left lung mason. Patient had 1+ pitting edema in b/l LE. Due to concern for persistent fluid overload due to , requested for an extra session of HD by nephrology today. However, resident updated daughter who refused for her mother to be placed on BIPap, as well as extra session of HD. It was explained to family that the patient may need intubation if the patient were to tire out due to labored breathing. Per RT, family removed patient's BiPap to feed her at lunch time. Patient was placed NPO due to high risk of aspiration given patient's somnolence and use of Bipap. Will broaden empiric antibiotic coverage with vancomycin and cefepime as patient has been on steroids and concern for worsening pneumonia. Pending CT chest. Will continue with IV steroids due to hx of [place] and asthma. Patient is scheduled for HD tomorrow, which will hopefully improve respiratory status.
[2025-03-18 14:21] LABS: Base Excess, Venous 3 (-3-3); O2 Saturation, Venous 91 % (96-97); PCO2, Venous 39 mmHg (36-56); PO2, Venous 59 mmHg (15-58); pH, Venous 7.45 (7.33-7.66)
--- NOTE | 2025-03-18 16:00 | XR_ITS ---
Examination: CT chest, without intravenous contrast. Sagittal and coronal 2-D reconstructions. Exam date and time: March 19, 2025 0931 hours Comparison December 28, 2024 INDICATIONS: 6 mm pulmonary nodule right upper lobe 2 mm pulmonary nodule lingular segment left upper lobe on CT chest December 28, 2024 CTDI:vol (mGy) 10.8 DLP: (mGycm) 285 Technique: Multiple 3.0 mm axial sections of the chest to been obtained. Bone and lung density settings are obtained. Sagittal and coronal 2-D reconstructions have been obtained. Low dose protocols were performed. One or more of the following dose reduction techniques were used; automated exposure control, adjustment of the mA and/or KV according to patient size, use of iterative reconstruction technique. Findings: Enlarged right thyroid lobe with poorly defined multiple right thyroid nodules Heavy thoracic aortic calcification no aneurysmal dilatation Pulmonary artery segments are not enlarged. Significant calcification left anterior descending left circumflex right coronary artery Microvascular calcification Mild enlargement cardiac contour Extensive opacity in both lungs most consistent with pneumonia This makes assessment for pulmonary nodules difficult 6 mm pulmonary nodule right upper lobe Minimal pleural disease No definite liver lesions Gallbladder detail is reduced secondary to patient motion No pancreatic mass IMPRESSION: Right thyromegaly with poorly defined right thyroid nodules, consider dedicated thyroid sonography follow-up Extensive opacity in both lungs most consistent with pneumonia, follow-up suggested to document clearing
--- NOTE | 2025-03-18 16:15 | PC.NURSE ---
Spoke with Dr Neely, He stated pt may take off BiPap to eat. I verified with Twan since she was the one who ordered, and she stated if family and pt wants it off then to put her back on high flow. Pt placed on high flow and is tolerating well.
[2025-03-18] MEDS: CEFEPIME INJ 1 GM in SODIUM CHLORIDE 0.9% (Popper) 50 ML IV (17:10)
--- NOTE | 2025-03-18 17:58 | ESPR_ITS ---
Documentation for date of: 03/18/25 Subjective Subjective Interval history: Patient evaluated Remains short of breath Case discussed with the patient's daughter Patient has CAD syndrome and her symptoms will definitely improve after TAVR which the satellite manager is working on Exam Vital Signs Temp Pulse Resp BP Pulse Ox O2 Del Method O2 Flow Rate 97.6 F 106 H 26 H 133/82 H 94 L BiPAP 03/18/25 16:00 03/18/25 16:16 03/18/25 16:16 03/18/25 16:00 03/18/25 16:16 03/18/25 16:00 03/18/25 12:00 FiO2 03/18/25 13:50 Objective Labs 03/18/25 05:10 03/18/25 05:10 Labs: Laboratory Results - last 24 hr 03/18/25 03/18/25 05:10 14:17 WBC 17.6 H RBC 2.86 L Hgb 8.7 L Hct 24.8 L MCV 87 MCH 30.4 MCHC 35.1 RDW Std Deviation 49.6 H Plt Count 202 Neut % (Auto) 93 H Lymph % (Auto) 2 L [place] % (Auto) 3 Eos % (Auto) 0 Baso % (Auto) 0 Neut # (Auto) 16.4 H Lymph # (Auto) 0.3 L [place] # (Auto) 0.5 Eos # (Auto) 0.0 Baso # (Auto) 0.0 Immature Gran # (Auto) 0.34 H Absolute Nucleated RBC 0.02 H Immature Gran % 2 H Nucleated RBC % 0 VBG pH 7.45 VBG pCO2 39 VBG pO2 59 H VBG O2 Sat (Tammie) 91 L VBG Base Excess 3 Sodium 136 Potassium 4.6 D Chloride 95 L Carbon Dioxide 28.1 Anion Gap 13 BUN 46 H Creatinine 3.1 H Estim Creat Clear Calc 10.2 L eGFR 14 L* BUN/Creatinine Ratio 15 Glucose 142 H Calculated Osmolality 285 Calcium 8.6 Corrected Calcium 8.8 Phosphorus 4.5 Magnesium 2.2 Total Bilirubin 0.6 AST 41 H ALT 82 H Alkaline Phosphatase 59 Total Protein 6.0 Albumin 3.7 Globulin 2.3 Albumin/Globulin Ratio 1.6 Impressions Impression: Hemoccult positive stool in the setting of critical aortic stenosis patient 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 Because of the generalized condition of the patient no invasive GI workup planned Recommend as soon as possible TAVR which the satellite manager working ABG Interpretation ABG results: 03/09/25 03/09/25 03/10/25 07:50 18:22 09:05 ABG pH 7.45 ABG pCO2 39 ABG pO2 289 H ABG HCO3 27 H ABG O2 Saturation 101 H ABG Base Excess 2 VBG pH 7.39 7.49 VBG pCO2 49 37 D VBG pO2 70 H 68 H VBG Base Excess 4 H 5 H 03/11/25 03/12/25 03/16/25 10:09 09:44 03:09 ABG pH 7.40 7.41 ABG pCO2 44 46 ABG pO2 80 L D 97 ABG HCO3 27 H 29 H ABG O2 Saturation 95 98 ABG Base Excess 2 4 H VBG pH 7.45 VBG pCO2 40 VBG pO2 39 D VBG Base Excess 4 H 03/18/25 14:17 ABG pH ABG pCO2 ABG pO2 ABG HCO3 ABG O2 Saturation ABG Base Excess VBG pH 7.45 VBG pCO2 39 VBG pO2 59 H VBG Base Excess 3 Assessment & Plan A&P Narrative # FOBT positive in a patient who has severe aortic stenosis 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 Since she has hypoxic respiratory failure At least at this point I will not subject the patient to any invasive GI workup till the respiratory status and the volume overload is corrected The patient needs anticoagulation for some reason she cannot be fully anticoagulated as she is not bleeding away And if she does bleed at that consider invasive GI workup Other medical problems include # Acute hypoxic respiratory failure on high flow oxygen # Severe aortic stenosis moderate MR and TR # End-stage renal disease on hemodialysis Will follow the patient Thank you very much for the opportunity to participate in the care of this patient Time Spent With Patient Time: Total time spent is greater than 50% in coordination of care (as documented) at patient's floor/unit and/or counseling patient:
[2025-03-18] MEDS: VANCOMYCIN/NS 1 GM IVPB 200 ML IV (18:10)
--- NOTE | 2025-03-18 18:35 | PC.NURSE ---
In room with Abraham, son had helped pt into chair at bedside. Pt appears better and says she feels better sitting up in the chair. Abraham stated that as long as pt is maintaining O2 with high flow, then she may remain on high flow. If she needs to return to BiPap during the night, that is when she will become NPO and on respiratory precautions. He was also ok with her being up in the chair
[2025-03-18] MEDS: ATORVASTATIN CALCIUM 20 MG TABLET 40 MG PO (21:30)
--- NOTE | 2025-03-18 22:32 | PD.NEPHPROG ---
Documentation for date of: 03/17/25 Subjective Subjective Interval history: Pt is seen and examined pt complaints of shortness of breath Exam Vital Signs Temp Pulse Resp BP Pulse Ox O2 Del Method O2 Flow Rate 98.1 F 95 27 H 122/71 96 High Flow Nasal Cannula 22 03/18/25 20:00 03/18/25 21:35 03/18/25 21:35 03/18/25 20:00 03/18/25 21:35 03/18/25 20:00 03/18/25 21:35 FiO2 25 03/18/25 21:35 Narrative Exam General: Alert, no acute distress. Skin: Warm, dry, intact, no obvious rash. Head: Normocephalic, atraumatic. Eye: Normal conjunctiva, PERRL. Respiratory: Respirations unlabored on HFNC 5L 21% O2. Gastrointestinal: Soft, nontender, distended. Objective Labs 03/18/25 05:10 03/18/25 05:10 Labs: Laboratory Results - last 24 hr 03/18/25 03/18/25 05:10 14:17 WBC 17.6 H RBC 2.86 L Hgb 8.7 L Hct 24.8 L MCV 87 MCH 30.4 MCHC 35.1 RDW Std Deviation 49.6 H Plt Count 202 Neut % (Auto) 93 H Lymph % (Auto) 2 L [place] % (Auto) 3 Eos % (Auto) 0 Baso % (Auto) 0 Neut # (Auto) 16.4 H Lymph # (Auto) 0.3 L [place] # (Auto) 0.5 Eos # (Auto) 0.0 Baso # (Auto) 0.0 Immature Gran # (Auto) 0.34 H Absolute Nucleated RBC 0.02 H Immature Gran % 2 H Nucleated RBC % 0 VBG pH 7.45 VBG pCO2 39 VBG pO2 59 H VBG O2 Sat (Tammie) 91 L VBG Base Excess 3 Sodium 136 Potassium 4.6 D Chloride 95 L Carbon Dioxide 28.1 Anion Gap 13 BUN 46 H Creatinine 3.1 H Estim Creat Clear Calc 10.2 L eGFR 14 L* BUN/Creatinine Ratio 15 Glucose 142 H Calculated Osmolality 285 Calcium 8.6 Corrected Calcium 8.8 Phosphorus 4.5 Magnesium 2.2 Total Bilirubin 0.6 AST 41 H ALT 82 H Alkaline Phosphatase 59 Total Protein 6.0 Albumin 3.7 Globulin 2.3 Albumin/Globulin Ratio 1.6 ABG Interpretation ABG results: 03/09/25 03/09/25 03/10/25 07:50 18:22 09:05 ABG pH 7.45 ABG pCO2 39 ABG pO2 289 H ABG HCO3 27 H ABG O2 Saturation 101 H ABG Base Excess 2 VBG pH 7.39 7.49 VBG pCO2 49 37 D VBG pO2 70 H 68 H VBG Base Excess 4 H 5 H 03/11/25 03/12/25 03/16/25 10:09 09:44 03:09 ABG pH 7.40 7.41 ABG pCO2 44 46 ABG pO2 80 L D 97 ABG HCO3 27 H 29 H ABG O2 Saturation 95 98 ABG Base Excess 2 4 H VBG pH 7.45 VBG pCO2 40 VBG pO2 39 D VBG Base Excess 4 H 03/18/25 14:17 ABG pH ABG pCO2 ABG pO2 ABG HCO3 ABG O2 Saturation ABG Base Excess VBG pH 7.45 VBG pCO2 39 VBG pO2 59 H VBG Base Excess 3 Assessment & Plan Assessment and plan (1) ESRD (end stage renal disease): Status: Acute Assessment and plan: Pt had HD today with 1 liter of UF will c/w dialysis as needed. Most likely will give rest from dialysis tomorrow. next dialysis Wednesday Her son on bedside discussed plan (2) Respiratory failure: Status: Acute (3) Asthma exacerbation: Status: Acute
[2025-03-19] VITALS (107 sets, daily range): BP systolic 95–146; BP diastolic 38–94; PULSE 72–120; RESP 2–65; TEMP 35.9–36.7; O2SAT 87–100; BMI 28.3
[2025-03-19] MEDS: ALBUTEROL RT 2.5 MG/0.5 ML NEBU 5 MG INH ×6 (02:39→22:08)
[2025-03-19] MEDS: IPRATROPIUM RT 0.5 MG/ 2.5 ML NEBU INH ×6 (02:39→22:09)
[2025-03-19] MEDS: METHIMAZOLE 5 MG TABLET PO ×3 (05:35→21:21)
[2025-03-19] MEDS: guaiFENesin SYRUP 200 MG/10 ML UDC PO ×2 (05:35→21:21)
[2025-03-19 06:24] LABS: Basophils # (Auto) 0.0 Thou/mm3 (0.0-0.2); Basophils % (Auto) 0 % (0-2.5); Eosinophils # (Auto) 0.0 Thou/mm3 (0.0-0.5); Eosinophils % (Auto) 0 % (0-10); Hematocrit 23.6 % (36.0-46.0); Immature Granulocytes Auto 0.38 Thou/mm3 (0.00-0.00); Lymphocytes # (Auto) 0.3 Thou/mm3 (1.0-4.8); Lymphocytes % (Auto) 2 % (10-50); Mean Corpuscular HGB Conc 35.2 g/dl (31.0-37.0); Mean Corpuscular Hemoglobin 30.2 pg (25.0-35.0); Mean Corpuscular Volume 86 fL (80-100); Monocytes # (Auto) 0.6 Thou/mm3 (0.0-0.8); Monocytes % (Auto) 3 % (0-12); Neutrophils # (Auto) 18.3 Thou/mm3 (1.8-7.7); Neutrophils % (Auto) 93 % (37-80); Nucleated Red Blood Cell # 0.03 Thou/mm3 (0.00-0.00); Nucleated Red Blood Cell % 0 /100 WBC (0); Platelet Count 173 Thou/mm3 (140-440); RDW Standard Deviation 48.8 fL (36.4-46.3); Red Blood Count 2.75 Miln/mm3 (4.00-5.20); White Blood Count 19.7 Thou/mm3 (3.6-11.0)
[2025-03-19 06:28] LABS: Hemoglobin 8.3 g/dL (12.0-16.0)
[2025-03-19 06:35] LABS: Alanine Aminotransferase 70 U/L (10-49); Albumin, Serum 3.6 gm/dL (3.4-4.8); Albumin/Globulin Ratio 1.6 (1.2-2.2); Alkaline Phosphatase 53 U/L (46-116); Anion Gap 14 (7-16); Aspartate Amino Transferase 37 U/L (0-34); BUN/Creatinine Ratio 19 Ratio (12-20); Bilirubin,Total 0.4 mg/dL (0.3-1.2); Blood Urea Nitrogen 84 mg/dL (9-23); Calcium 8.4 mg/dL (8.3-10.6); Calcium (Corrected) 8.7 mg/dL (8.5-10.1); Carbon Dioxide 24.7 mMol/L (20.0-31.0); Chloride 94 mMol/L (98-107); Creatinine (Component) 4.5 mg/dL (0.6-1.3); Estimated Creatinine Clearance 7.0 mL/min (>60); Globulin 2.2 gm/dL (2.3-3.5); Glucose 136 mg/dL (74-106); Magnesium 1.9 mg/dL (1.6-2.6); Osmolality,Calculated 293 (275-295); Phosphorous 6.8 mg/dL (2.4-5.1); Potassium 5.7 mMol/L (3.4-5.1); Sodium 133 mMol/L (136-145); Total Protein 5.8 gm/dL (5.7-8.2); Vancomycin,Random 20.0 mcg/mL; eGFR 9 See Note
[2025-03-19 08:40] LABS: Base Excess -1 (-3-3); HCO3 24 mEq/L (20-26); Inspired Oxygen, FIO2 30 %; O2 Saturation 91 % (91-98); PCO2 43 mmHg (32.0-48.0); PO2 66 mmHg (83-108); pH, Arterial 7.36 (7.35-7.45)
--- NOTE | 2025-03-19 08:41 | PC.SS ---
Update: Patient obtaining IV antibiotics. Patient remains on high flow oxygen.
[2025-03-19 08:44] LABS: Allen Test Performed/OK; Puncture Site Right Radial
--- NOTE | 2025-03-19 09:02 | ESPR_ITS ---
Documentation for date of: 03/19/25 Subjective Subjective Interval history: Patient seen and examined at bedside. Patient continues to be short of breath, using accessory muscles, and primary team did consult pulmonary. Now on 2L NC. Pulmonary consultation was done with Dr. 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 On high-dose steroids along with nebulizations. Also reviewed her xray and feel there is fluid overload also and recommended to change to HD as PD does not work well after few years. [facility] at [place] failed to find extrapulmonary causes of dyspnea and was discovered to have . GPA was in remission for many years after initial diagnosis in [place] treated with prednisone and methotrexate 25 years ago , renal disease manifested later [facility] biopsy was inconclusive and repeat biopsy [place] [facility] [place] findings consistent with GPA, started on rituximab and steroid used but progressed to ESRD over time around 2020 Recommended hemodialysis previously by me also during last admission but daughter, sons who are the caregivers were not ready for it. Other vitals are stable, creatinine at 6.7, and cracles appreciated throughout the lung mason. Will continue to monitor closely and fluid management as per nephrology as patient on dialysis. Abnormal thyroid function tests and primary team ordered further lab tests; ultrasound of the thyroid revealed bilateral vascular solid thyroid nodules, primary team may consider ultrasound-guided fine-needle aspiration of both nodules. On 03/13/2025 Dr. Olivares had about 30 minutes discussion with the patient's daughter regarding starting the patient on HD, at least for couple of months, and she reported she would decide about it with further discussion with other family members and decide about HD. Finally, on 03/15/2025, patient's family agreed for hemodialysis. After successful placement of IR hemodialysis catheter, she is undergoing hemodialysis session this afternoon. 03/19/2025: Patient is currently on BiPAP, labs revealing mild worsening in white count to 19.7, improvement in BUN/creatinine, after total of 3 HD session so far. The patient's cANCA titre is 1:20 and antiproteinase 3 is 16.[address] Arellano recommended bronchoscopy to rule out any kind of alveolar hemorrhage. If the bronchoscopy does show alveolar hemorrhage patient needs to be on high-dose steroids, rituximab and possible plasmapheresis at a tertiary care center. We will continue with diltiazem CD to 360 mg daily due to concern regarding tachycardia. Exam Vital Signs Temp Pulse Resp BP Pulse Ox O2 Del Method O2 Flow Rate 97.4 F 92 22 H 137/74 H 99 High Flow Nasal Cannula 20 03/19/25 04:00 03/19/25 06:14 03/19/25 06:14 03/19/25 04:00 03/19/25 06:14 03/19/25 04:00 03/19/25 06:14 FiO2 30 03/19/25 06:14 Narrative Exam General: Alert and oriented x3. In no acute distress. Eyes: Pupils are equal and reactive to light bilaterally. HEENT: Atraumatic, normocephalic. No JVD noted. Mucosa moist. Cardiovascular: Normal S1 and soft S2,. Tachycardic, 3/6 ejection systolic murmur heard at aortic area, 3/6 holosystolic murmur heard on the mitral area and parasternal area, trace peripheral pitting edema noted. Respiratory: Mild respiratory distress on oxygen via nasal cannula, use of accessory muscles appreciated, bilateral air entry present, severe wheezing noted. Crackles improved Abdomen: Soft, nontender, nondistended. Skin: No rash. Warm to touch. Musculoskeletal: No gross injuries. Able to move all 4 extremities. Neuro: Alert and oriented x3. No focal neuro deficits. Psych: anxious and tired. Objective Labs 03/19/25 05:47 03/19/25 05:47 Labs: Laboratory Results - last 24 hr 03/18/25 03/19/25 03/19/25 14:17 05:47 08:33 WBC 19.7 H RBC 2.75 L Hgb 8.3 L Hct 23.6 L MCV 86 MCH 30.2 MCHC 35.2 RDW Std Deviation 48.8 H Plt Count 173 Neut % (Auto) 93 H Lymph % (Auto) 2 L [place] % (Auto) 3 Eos % (Auto) 0 Baso % (Auto) 0 Neut # (Auto) 18.3 H Lymph # (Auto) 0.3 L [place] # (Auto) 0.6 Eos # (Auto) 0.0 Baso # (Auto) 0.0 Immature Gran # (Auto) 0.38 H Absolute Nucleated RBC 0.03 H Immature Gran % 2 H Nucleated RBC % 0 Puncture Site Right Radial ABG pH 7.36 ABG pCO2 43 ABG pO2 66 L ABG HCO3 24 ABG O2 Saturation 91 ABG Base Excess -1 VBG pH 7.45 VBG pCO2 39 VBG pO2 59 H VBG O2 Sat (Tammie) 91 L VBG Base Excess 3 FiO2 30 Sodium 133 L Potassium 5.7 H D Chloride 94 L Carbon Dioxide 24.7 Anion Gap 14 BUN 84 H Creatinine 4.5 H* D Estim Creat Clear Calc 7.0 L eGFR 9 L* BUN/Creatinine Ratio 19 Glucose 136 H Calculated Osmolality 293 Calcium 8.4 Corrected Calcium 8.7 Phosphorus 6.8 H Magnesium 1.9 Total Bilirubin 0.4 AST 37 H ALT 70 H Alkaline Phosphatase 53 Total Protein 5.8 Albumin 3.6 Globulin 2.2 L Albumin/Globulin Ratio 1.6 Random Vancomycin 20.0 ABG Interpretation ABG results: 03/09/25 03/09/25 03/10/25 07:50 18:22 09:05 ABG pH 7.45 ABG pCO2 39 ABG pO2 289 H ABG HCO3 27 H ABG O2 Saturation 101 H ABG Base Excess 2 VBG pH 7.39 7.49 VBG pCO2 49 37 D VBG pO2 70 H 68 H VBG Base Excess 4 H 5 H 03/11/25 03/12/25 03/16/25 10:09 09:44 03:09 ABG pH 7.40 7.41 ABG pCO2 44 46 ABG pO2 80 L D 97 ABG HCO3 27 H 29 H ABG O2 Saturation 95 98 ABG Base Excess 2 4 H VBG pH 7.45 VBG pCO2 40 VBG pO2 39 D VBG Base Excess 4 H 03/18/25 03/19/25 14:17 08:33 ABG pH 7.36 ABG pCO2 43 ABG pO2 66 L ABG HCO3 24 ABG O2 Saturation 91 ABG Base Excess -1 VBG pH 7.45 VBG pCO2 39 VBG pO2 59 H VBG Base Excess 3 Quality Measures Quality Measures none Advance care planning discussed with:: patient and child Assessment & Plan Assessment Current Active Medications: Generic Name Dose Route Start Last Admin Trade Name Freq PRN Reason Stop Dose Admin Acetaminophen 650 mg 03/09/25 14:41 03/16/25 22:38 Acetaminophen 325 Mg Tablet PO 04/08/25 14:40 650 mg Q6H PRN Administration Mild Pain(1-3) or Fever >100.3 Albuterol 5 mg 03/18/25 15:00 03/19/25 06:12 Albuterol Rt 2.5 Mg/0.5 Ml Nebu INH 04/17/25 14:59 5 mg Q4HRRT SABRINA Administration Albuterol/Ipratropium 3 ml 03/16/25 17:12 Albuterol/Ipratropium (Duoneb) Rt Annika 3 Ml Nebu INH 04/15/25 17:11 Q2HR PRN SHORTNESS OF BREATH OR WHEEZE Atorvastatin Calcium 40 mg 03/09/25 21:00 03/18/25 21:30 Atorvastatin Calcium 20 Mg Tablet PO 04/08/25 20:59 40 mg HS SABRINA Administration Dextrose 25 ml 03/12/25 08:16 Dextrose 50%-Water Inj 50 Ml Syringe IV 04/11/25 08:15 Q15MIN PRN BG 50-70 responsive npo pt Dextrose 50 ml 03/12/25 08:16 Dextrose 50%-Water Inj 50 Ml Syringe IV 04/11/25 08:15 Q15MIN PRN BG <50 OR BG <70 & pt unresponsive Diltiazem HCl 360 mg 03/18/25 09:00 03/18/25 08:54 Diltiazem Cd 120 Mg Capcr PO 04/17/25 08:59 360 mg QDAY SABRINA Administration Glucagon 1 mg 03/12/25 08:16 Glucagon Inj 1 Mg Vial IM Q15MIN PRN BG <70, and no IV access Guaifenesin 200 mg 03/16/25 14:00 03/19/25 05:35 Guaifenesin Syrup 200 Mg/10 Ml Udc PO 04/15/25 13:59 200 mg TID SABRINA Administration Protocol Heparin Sodium (Porcine) 3,300 unit 03/15/25 15:49 03/17/25 12:26 Heparin Sod Inj 1000 Unit/Ml Vial 10 Ml INDWELLCAT 03/29/25 15:48 3,300 unit X1 PRN Administration DIALYSIS Cefepime HCl 1 gm/ Sodium 50 mls @ 100 mls/hr 03/18/25 16:12 03/18/25 17:10 Chloride IV 03/25/25 16:11 100 mls/hr QDAY SABRINA Administration Insulin Human Lispro 0 unit 03/12/25 11:30 03/19/25 07:41 Insulin Lispro (Admelog) 1 Unit/0.01 Ml Unit SC 04/11/25 11:29 Not Given AC SABRINA Protocol Ipratropium [place] 0.5 mg 03/10/25 15:00 03/19/25 06:12 Ipratropium Rt 0.5 Mg/ 2.5 Ml Nebu INH 04/09/25 14:59 0.5 mg Q4HRRT SABRINA Administration Lactulose 60 gm 03/17/25 10:07 Lactulose Syrup 20 Gm/30 Ml Udc PO 04/15/25 05:59 TID PRN constipation Protocol Melatonin 3 mg 03/09/25 23:18 03/15/25 18:33 Melatonin 3 Mg Tablet PO 04/09/25 20:59 3 mg HS PRN Administration insomnia Methimazole 5 mg 03/15/25 08:45 03/19/25 05:35 Methimazole 5 Mg Tablet PO 04/14/25 08:44 5 mg TID SABRINA Administration Methylprednisolone Sodium Succinate 40 mg 03/18/25 21:00 03/18/25 21:32 Methylprednisolone Sod Succ 40 Mg Vial IVP 03/25/25 20:59 40 mg BID SABRINA Administration Ondansetron HCl 4 mg 03/09/25 14:41 Ondansetron Inj 2 Mg/Ml Inj 2 Ml IVP 04/08/25 14:40 Q6H PRN NAUSEA OR VOMITING Protocol Pantoprazole Sodium 40 mg 03/17/25 03:00 03/18/25 21:32 Pantoprazole Inj 40 Mg Vial IVP 04/16/25 02:59 40 mg BID SABRINA Administration Breztri (Budesonide, 2 ea 03/13/25 12:00 03/18/25 21:25 Glycopyrrolate And INH 04/12/25 11:59 2 puff Formoterol) BID SABRINA Administration Pharmacy Consult 1 each 03/18/25 16:15 Vancomycin Pharmacy To Dose 1 Each Each IV 04/17/25 16:14 QDAY PRN CONSULT Pharmacy Consult 1 each 03/18/25 16:09 Pharmacy Renal Dose Adjustment 1 Ea XX 04/17/25 16:08 PRN PRN CONSULT Sodium Chloride 3 ml 03/11/25 16:26 Sodium Chloride Rt Annika 0.9% 3 Ml Nebu INH 04/10/25 16:25 PRN PRN SOLN Trazodone HCl 25 mg 03/18/25 13:50 03/18/25 21:31 Trazodone Hcl 50 Mg Tablet PO 04/16/25 22:09 25 mg HS PRN Administration insomnia Plan A 84-year-old female with a past medical history of severe aortic stenosis with a valve area of 0.5 cm?, moderate MR and TR, moderate PAH, preserved EF with diastolic dysfunction, end-stage renal disease on peritoneal dialysis for the last 4 to 5 years, Antonia's granulomatosis diagnosed 25 years ago, chronic severe asthma since her early 20s, history of multifocal atrial tachycardia, 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 1. Acute hypoxic respiratory failure mostly secondary to fluid overload 2/2 failing PD, and 2. Acute asthma exacerbation 3. Severe aortic stenosis with a valve area less than 0.5 cm? 4. End-stage renal disease on peritoneal dialysis for past 4 to 5 years mostly secondary to Antonia's granulomatosis 5. Abnormal thyroid function tests 6. Multifocal atrial tachycardia 7. Valvular heart disease with severe aortic stenosis, moderate MR and TR 8. Moderate pulmonary artery pretension with an RVSP of 55 mmHg 9. Chronic diastolic congestive heart failure 10. 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 Patient presented with acute hypoxic respiratory failure and and was diagnosed with asthma exacerbation. Patient started on high-dose steroids with Solu- Medrol 60 mg every every 8 hours decreased to every 12 hours, along with nebulizations and inhalers. Still continues to be on oxygen and now use of any accessory muscles appreciated. Combination of upper respiratory tract symptoms along with recent emotional stress. Also on IV antibiotics. Patient has been tachycardic On arrival and EKG reviewed. EKG shows irregularly irregular rhythm but most of the time is 100 to 130 bpm which is typical of multifocal atrial tachycardia. Has irregularly irregular rhythm with varying PP and OH intervals. 3 distinct P wave morphologies are also seen in the lead II. Also patient has underlying lung disease which could contribute's significantly for the multifocal atrial tachycardia Continue rate control with diltiazem 240 mg once daily as no beta-pratik can be given because of the as above. Will uptitrate the diltiazem to 360 mg once daily and if rate is not well-controlled. No anticoagulation required. Patient is mildly elevated troponins at 0.34 and 0.145. Troponin elevation mostly secondary to NSTEMI type II in the setting of supply/demand mismatch. Patient denies any Chest pain or chest pressure at the present moment. EKG showed marked without any acute ST-T changes history of ischemia. Patient is scheduled to have left and right heart cardiac catheterization on Wednesday as outpatient but cannot be done because of her acute hypoxic respiratory failure at the present point of time. Continue Plavix for now and high intensity statin. No beta-pratik because of asthma. No heparin drip required. Patient does have severe as noted above with a valve area of less than 0.5 cm?. Patient also has moderate MR and TR with moderate PAH noted on the previous echocardiogram in November 2024. Workup started as outpatient for the severe and as noted previously was scheduled for the left heart cardiac catheterization and right heart cardiac catheterization which will need to be postponed for now given her acute hypoxic respiratory failure. Will continue further workup of the severe as outpatient. 03/17/2025: Patient seen and examined at bedside. Patient continues to be short of breath, using accessory muscles, and primary team did consult pulmonary. Now on 2L NC. Pulmonary consultation was done with Dr. 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 On high-dose steroids along with nebulizations. Also reviewed her xray and feel there is fluid overload also and recommended to change to HD as PD does not work well after few years. [facility] at [place] failed to find extrapulmonary causes of dyspnea and was discovered to have . GPA was in remission for many years after initial diagnosis in [place] treated with prednisone and methotrexate 25 years ago , renal disease manifested later [facility] biopsy was inconclusive and repeat biopsy [place] [facility] [place] findings consistent with GPA, started on rituximab and steroid used but progressed to ESRD over time around 2019 Recommended hemodialysis previously by me also during last admission but daughter, sons who are the caregivers were not ready for it. Other vitals are stable, creatinine at 6.7, and cracles appreciated throughout the lung mason. Will continue to monitor closely and fluid management as per nephrology as patient on dialysis. Abnormal thyroid function tests and primary team ordered further lab tests; ultrasound of the thyroid revealed bilateral vascular solid thyroid nodules, primary team may consider ultrasound-guided fine-needle aspiration of both nodules. On 03/13/2025 Dr. Olivares had about 30 minutes discussion with the patient's daughter regarding starting the patient on HD, at least for couple of months, and she reported she would decide about it with further discussion with other family members and decide about HD. Finally, on 03/15/2025, patient's family agreed for hemodialysis. After successful placement of IR hemodialysis catheter, she is undergoing hemodialysis session this afternoon. 03/19/2025: Patient is currently on BiPAP, labs revealing mild worsening in white count to 19.7, improvement in BUN/creatinine, after total of 3 HD session so far. The patient's cANCA titre is 1:20 and antiproteinase 3 is 16.[address] Arellano recommended bronchoscopy to rule out any kind of alveolar hemorrhage. If the bronchoscopy does show alveolar hemorrhage patient needs to be on high-dose steroids, rituximab and possible plasmapheresis at a tertiary care center. We will continue with diltiazem CD to 360 mg daily due to concern regarding tachycardia. Management of rest of the medical conditions as per primary team and other consultants. Thank you for the consult and allowing me to participate in the care of the patient. Cardiology will continue to follow. The patient's management plan was discussed with my attending physician MD Kevin Murcia MD, PGY3 Attending Provider Attestation/Addendum I have personally seen and examined the patient separately on the above date of service and discussed the plan of care with the resident. I reviewed the resident Dr. Kevin Sullivan consultation progress note and agree with the resident findings and plan in the note above and have also edited the documentation to reflect my findings and plan. Patient still continues to be short of breath and is requiring high flow oxygen and intermittent BiPAP. Still continues to have significant wheezing on examination. Finally results further patient's cANCA titre is 1:20 and antiproteinase 3 is 16.9 were obtained. Discussed with the chairman ceo Dr Arellano who recommended bronchoscopy to rule out any kind of alveolar hemorrhage. If the bronchoscopy does show alveolar hemorrhage patient needs to be on high- dose steroids, rituximab and possible plasmapheresis at a tertiary care center. As the patient has not been improving on HD even after 3 sessions. Decision was made to do CRRT today and patient has been upgraded to the ICU. Discussed with the patient's daughter about the above results and she has been updated by the primary team and the transfer to the ICU. Family to talk to the ICU team regarding the bronchoscopy and further treatment plan for the possible Antonia's flare. Patient did receive rituximab previously apparently for the Antonia's when she was diagnosed. She did not have any flares since then. Family is trying to obtain some records from the previous doctors regarding her previous levels of the titers. IC team to continue to follow with the patient's daughter regarding the labs as well as the bronchoscopy. Discussed with the family that her moderate to severe aortic stenosis workup can be continued as outpatient when she is stable hemodynamically and the breathing improves. Management of rest of the medical conditions as per primary team and other consultants. Thank you for the consult and allowing me to participate in the care of the patient. Cardiology will continue to follow. Jori Olivares M.D. Interventional Cardiology
[2025-03-19] MEDS: DILTIAZEM CD 120 MG CAPCR 360 MG PO (09:07)
[2025-03-19] MEDS: CEFEPIME INJ 1 GM in SODIUM CHLORIDE 0.9% (Popper) 50 ML IV (09:09)
[2025-03-19 09:29] LABS: ANCA Screen POSITIVE (NEGATIVE); C-ANCA Titer 1:20 titer (<1:20); Myeloperoxidase Ab <1.0 AI (<1.0); Proteinase-3 Ab 16.9 AI (<1.0)
--- NOTE | 2025-03-19 09:31 | ESPR_ITS ---
<Statement entered by Yennifer Martinez MD - 03/26/25 14:19> I reviewed above note and agree with findings and plans. I have also personally examined the patient with medicine team and went over assessment and plan with medical team including employee communications intern and resident physician. Documentation for date of: 03/19/25 Patient continues to have wheezing bilaterally on physical exam, worsening. ABG ordered. Duonebs 1 hr long treatment. ANCA screen Positive, 1:20 and Anti- Proteinase 3-16.9. Pending CT. Pending sputum culture. MRSA negative. Continue antibiotics. Patient will be upgraded to ICU for CRRT. Subjective Subjective Interval history: Patient was evaluated at bedside today. Patient did not appear to be at baseline; instead AO x2. Patient did not have a hemodialysis session yesterday, plan to have hemodialysis session done today. CT Chest demonstrated right thyroidmegaly with multiple right lobe nodules and bilateral lung opacities, consistent with pneumonia; continue vancomycin and cefepime for suspected HCAP. Patient satting high 90s on HFNC 20L oxygen FiO2 30 in the morning, satting high 90s on HFNC 25L FiO2 30 in the afternoon. Wheezing noted on examination. Plan to transer to ICU today to pursue possible CRRT and improved respiratory support, Dr. Griggs, appreciate recommendations. Exam Vital Signs Temp Pulse Resp BP Pulse Ox O2 Del Method O2 Flow Rate 97.4 F 120 H 22 H 146/94 H 99 High Flow Nasal Cannula 20 03/19/25 04:00 03/19/25 09:07 03/19/25 06:14 03/19/25 09:07 03/19/25 06:14 03/19/25 04:00 03/19/25 06:14 FiO2 30 03/19/25 06:14 Narrative Exam General Appearance: Alert & Oriented X2, well-nourished female who is lying in bed in moderate distress to respiratory failure. HEENT: Skull symmetrical and atraumatic. Conjunctivae pink and moist. Pupils equal, round, reactive to light and accommodation (PERRL). External ear without lesion or discharge. Straight, nares patient, mucosa pink, no discharge. No thyroid nodule appreciated. No cervical lymphadenopathy. Cardio: Normal Rate and Rhythm with S1 and S2 heart sounds. No murmurs or extra heart sounds auscultated. No bruits on carotid auscultation. No peripheral edema or cyanosis. Lungs: Symmetric with good expansion. Chest and back non-tender. Breath sounds vesicular with wheezing. Abdomen: Non-tender, Non-distended, Normal Reactive Bowel Sounds Neuro: Alert, cooperative, oriented to person, place. Not oriented to command. Speech clear. CN grossly intact. Upper motor strength 5/5 and Lower motor strength 5/5. Sensation intact. Objective Labs 03/19/25 05:47 03/19/25 20:50 Labs: Laboratory Results - last 24 hr 03/11/25 03/18/25 03/19/25 17:59 14:17 05:47 WBC 19.7 H RBC 2.75 L Hgb 8.3 L Hct 23.6 L MCV 86 MCH 30.2 MCHC 35.2 RDW Std Deviation 48.8 H Plt Count 173 Neut % (Auto) 93 H Lymph % (Auto) 2 L Gillespie % (Auto) 3 Eos % (Auto) 0 Baso % (Auto) 0 Neut # (Auto) 18.3 H Lymph # (Auto) 0.3 L Gillespie # (Auto) 0.6 Eos # (Auto) 0.0 Baso # (Auto) 0.0 Immature Gran # (Auto) 0.38 H Absolute Nucleated RBC 0.03 H Immature Gran % 2 H Nucleated RBC % 0 Puncture Site ABG pH ABG pCO2 ABG pO2 ABG HCO3 ABG O2 Saturation ABG Base Excess VBG pH 7.45 VBG pCO2 39 VBG pO2 59 H VBG O2 Sat (Tammie) 91 L VBG Base Excess 3 FiO2 Sodium 133 L Potassium 5.7 H D Chloride 94 L Carbon Dioxide 24.7 Anion Gap 14 BUN 84 H Creatinine 4.5 H* D Estim Creat Clear Calc 7.0 L eGFR 9 L* BUN/Creatinine Ratio 19 Glucose 136 H Calculated Osmolality 293 Calcium 8.4 Corrected Calcium 8.7 Phosphorus 6.8 H Magnesium 1.9 Total Bilirubin 0.4 AST 37 H ALT 70 H Alkaline Phosphatase 53 Total Protein 5.8 Albumin 3.6 Globulin 2.2 L Albumin/Globulin Ratio 1.6 Random Vancomycin 20.0 ANCA Screen POSITIVE A c-ANCA Titer 1:20 H Anti-Proteinase 3 16.9 H p-ANCA Titer TNP Atypical p-ANCA Titer TNP Anti-Myeloperoxidase <1.0 03/19/25 08:33 WBC RBC Hgb Hct MCV MCH MCHC RDW Std Deviation Plt Count Neut % (Auto) Lymph % (Auto) Gillespie % (Auto) Eos % (Auto) Baso % (Auto) Neut # (Auto) Lymph # (Auto) Gillespie # (Auto) Eos # (Auto) Baso # (Auto) Immature Gran # (Auto) Absolute Nucleated RBC Immature Gran % Nucleated RBC % Puncture Site Right Radial ABG pH 7.36 ABG pCO2 43 ABG pO2 66 L ABG HCO3 24 ABG O2 Saturation 91 ABG Base Excess -1 VBG pH VBG pCO2 VBG pO2 VBG O2 Sat (Tammie) VBG Base Excess FiO2 30 Sodium Potassium Chloride Carbon Dioxide Anion Gap BUN Creatinine Estim Creat Clear Calc eGFR BUN/Creatinine Ratio Glucose Calculated Osmolality Calcium Corrected Calcium Phosphorus Magnesium Total Bilirubin AST ALT Alkaline Phosphatase Total Protein Albumin Globulin Albumin/Globulin Ratio Random Vancomycin ANCA Screen c-ANCA Titer Anti-Proteinase 3 p-ANCA Titer Atypical p-ANCA Titer Anti-Myeloperoxidase ABG Interpretation ABG results: 03/09/25 03/09/25 03/10/25 07:50 18:22 09:05 ABG pH 7.45 ABG pCO2 39 ABG pO2 289 H ABG HCO3 27 H ABG O2 Saturation 101 H ABG Base Excess 2 VBG pH 7.39 7.49 VBG pCO2 49 37 D VBG pO2 70 H 68 H VBG Base Excess 4 H 5 H 03/11/25 03/12/25 03/16/25 10:09 09:44 03:09 ABG pH 7.40 7.41 ABG pCO2 44 46 ABG pO2 80 L D 97 ABG HCO3 27 H 29 H ABG O2 Saturation 95 98 ABG Base Excess 2 4 H VBG pH 7.45 VBG pCO2 40 VBG pO2 39 D VBG Base Excess 4 H 03/18/25 03/19/25 14:17 08:33 ABG pH 7.36 ABG pCO2 43 ABG pO2 66 L ABG HCO3 24 ABG O2 Saturation 91 ABG Base Excess -1 VBG pH 7.45 VBG pCO2 39 VBG pO2 59 H VBG Base Excess 3 Quality Measures Quality Measures none Advance care planning discussed with:: patient Assessment & Plan Assessment Current Active Medications: Generic Name Dose Route Start Last Admin Trade Name Freq PRN Reason Stop Dose Admin Acetaminophen 650 mg 03/09/25 14:41 03/16/25 22:38 Acetaminophen 325 Mg Tablet PO 04/08/25 14:40 650 mg Q6H PRN Administration Mild Pain(1-3) or Fever >100.3 Albuterol 5 mg 03/18/25 15:00 03/19/25 06:12 Albuterol Rt 2.5 Mg/0.5 Ml Nebu INH 04/17/25 14:59 5 mg Q4HRRT SABRINA Administration Albuterol/Ipratropium 3 ml 03/16/25 17:12 Albuterol/Ipratropium (Duoneb) Rt Annika 3 Ml Nebu INH 04/15/25 17:11 Q2HR PRN SHORTNESS OF BREATH OR WHEEZE Atorvastatin Calcium 40 mg 03/09/25 21:00 03/18/25 21:30 Atorvastatin Calcium 20 Mg Tablet PO 04/08/25 20:59 40 mg HS SABRINA Administration Dextrose 25 ml 03/12/25 08:16 Dextrose 50%-Water Inj 50 Ml Syringe IV 04/11/25 08:15 Q15MIN PRN BG 50-70 responsive npo pt Dextrose 50 ml 03/12/25 08:16 Dextrose 50%-Water Inj 50 Ml Syringe IV 04/11/25 08:15 Q15MIN PRN BG <50 OR BG <70 & pt unresponsive Diltiazem HCl 360 mg 03/18/25 09:00 03/19/25 09:07 Diltiazem Cd 120 Mg Capcr PO 04/17/25 08:59 360 mg QDAY SABRINA Administration Glucagon 1 mg 03/12/25 08:16 Glucagon Inj 1 Mg Vial IM Q15MIN PRN BG <70, and no IV access Guaifenesin 200 mg 03/16/25 14:00 03/19/25 05:35 Guaifenesin Syrup 200 Mg/10 Ml Udc PO 04/15/25 13:59 200 mg TID SABRINA Administration Protocol Heparin Sodium (Porcine) 3,300 unit 03/15/25 15:49 03/17/25 12:26 Heparin Sod Inj 1000 Unit/Ml Vial 10 Ml INDWELLCAT 03/29/25 15:48 3,300 unit X1 PRN Administration DIALYSIS Cefepime HCl 1 gm/ Sodium 50 mls @ 100 mls/hr 03/18/25 16:12 03/19/25 09:09 Chloride IV 03/25/25 16:11 100 mls/hr QDAY SABRINA Administration Insulin Human Lispro 0 unit 03/12/25 11:30 03/19/25 07:41 Insulin Lispro (Admelog) 1 Unit/0.01 Ml Unit SC 04/11/25 11:29 Not Given AC SABRINA Protocol Ipratropium [place] 0.5 mg 03/10/25 15:00 03/19/25 06:12 Ipratropium Rt 0.5 Mg/ 2.5 Ml Nebu INH 04/09/25 14:59 0.5 mg Q4HRRT SABRINA Administration Lactulose 60 gm 03/17/25 10:07 Lactulose Syrup 20 Gm/30 Ml Udc PO 04/15/25 05:59 TID PRN constipation Protocol Melatonin 3 mg 03/09/25 23:18 03/15/25 18:33 Melatonin 3 Mg Tablet PO 04/09/25 20:59 3 mg HS PRN Administration insomnia Methimazole 5 mg 03/15/25 08:45 03/19/25 05:35 Methimazole 5 Mg Tablet PO 04/14/25 08:44 5 mg TID SABRINA Administration Methylprednisolone Sodium Succinate 40 mg 03/18/25 21:00 03/19/25 09:08 Methylprednisolone Sod Succ 40 Mg Vial IVP 03/25/25 20:59 40 mg BID SABRINA Administration Ondansetron HCl 4 mg 03/09/25 14:41 Ondansetron Inj 2 Mg/Ml Inj 2 Ml IVP 04/08/25 14:40 Q6H PRN NAUSEA OR VOMITING Protocol Pantoprazole Sodium 40 mg 03/17/25 03:00 03/19/25 09:07 Pantoprazole Inj 40 Mg Vial IVP 04/16/25 02:59 40 mg BID SABRINA Administration Breztri (Budesonide, 2 ea 03/13/25 12:00 03/18/25 21:25 Glycopyrrolate And INH 04/12/25 11:59 2 puff Formoterol) BID SABRINA Administration Pharmacy Consult 1 each 03/18/25 16:15 Vancomycin Pharmacy To Dose 1 Each Each IV 04/17/25 16:14 QDAY PRN CONSULT Pharmacy Consult 1 each 03/18/25 16:09 Pharmacy Renal Dose Adjustment 1 Ea XX 04/17/25 16:08 PRN PRN CONSULT Sodium Chloride 3 ml 03/11/25 16:26 Sodium Chloride Rt Annika 0.9% 3 Ml Nebu INH 04/10/25 16:25 PRN PRN SOLN Trazodone HCl 25 mg 03/18/25 13:50 03/18/25 21:31 Trazodone Hcl 50 Mg Tablet PO 04/16/25 22:09 25 mg HS PRN Administration insomnia Plan Plan Patient is an 84-year-old female with a past medical history CHF HFpEF 55 to 60% (11/23/2024), systolic dysfunction, moderate PAH 55, moderate to severe with V-max 3.8, ESRD status post peritoneal dialysis dialysis, chronic asthma since early 20s, 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 # Acute on chronic hypoxic respiratory failure #Asthma exacerbation # Concern for HCAP # Flash pulmonary edema, secondary to severe # History of Antonia's granulomatosis Patient presented to the ED via EMS with a two day history of worsening shortness of breath. Patient's family noticed the patient wheezing while receiving dialysis and called EMS. While in the emergency room department, several episode of spO2 80s on nasal cannula-->transitioned to Bipap. While in ER, increased work of breathing, RR high 30s/40s with abdominal breathing noted, increase in FiO 10-->30. Repeat ABG pH 7.45, pO2 289, HC03 27-->decrease in FIO2 to 20. Daughter at bedside noted an URI several days ago and is concern this may have triggered current exacerbation. Patient has already received antibiotics, azithromycin Course Completed (03/09/2025-03/12/2025) & Ceftriaxone 03/10/2025- 03/11/2025 Levaquin 250 mg PO QD for possible pneumonia (03/17-03/18/2025. Noted improvement in chest imaging following hemodialysis, but persistent infiltrate right lung, possibly pneumonia, hospital-acquired. Patient on vancomycin and cefepime, sputum cultures ordered. Plan: - Transferred to ICU today, Dr. Griggs, appreciate recommendations ? Pulmonology consult to Dr. Arellano was placed, appreciate recommendations ? Every 4 hours nebulizations ? Chest physiotherapy ? Guaifenesin 200 mg 3 times daily ? Continue Methylprednisolone 40 twice daily ? IgE levels within normal limits, antibody levels and serology for Antonia's granulomatosis: 03/11 titers c-ANCA 1:20, Anti-Proteinase III 16.9, may be candidate for steroids ? Follow sputum cultures ? Blood glass 03/19: pH 7.36 pCO2 43 pO2 66 HCO3 24 O2 sat 91 ? CXR and CT Chest 03/18 demonstrated bilateral lung opacities concerning for pneumonia; continue vancomycin (03/18-04/17) and cefepime (03/18-03/25) ? Continue hemodialysis #Acute on Chronic Congestive Heart Failure, worsening #CHF HFpEF 60-65% (03/12/2025) #Mild Pulmonary Vascular Congestion #Moderate to Severe Aortic Stenosis, AV vmax 3.8 m #Severe Mitral Regurgitation #Moderate PAH, 55 mmHg Patient likely acute on chronic congestive heart failure this, may only be mild exacerbation as pulmonary vascular congestion was less prominent as compared to other episode. Previous CHF exacerbation BNP 1691.Acute on chronic CHF exacerbation likely triggered by asthma exacerbation. Diagnostics: Echo (03/12/2025): Normal LV size and function. EF 60-65%. Diastolic dysfunction present but cannot be graded due to arrhythymia.Normal RV size and function. Estimated RVSP moderately elevated RVSP 50-55 mm hg.Moderate to Severe . AV vmax 3.8 m/s, Mean PG 38 mm hg. LATRICE 0.5 sq cm. -BNP 03/09 345; 03/15 1608 -Chest x-ray (03/10/2025): Mild chronic heart failure pattern, prominent vascular congestion-overall mild chornic heart failure -Chest x-ray (03/16/2025): Chronic heart failure pattern with vascular congestion, possible repeat CXR Plan: -Patient started on bipap -Strict Ins and Outs -Fluid Restrictions 1800 -Oxygen support -Cardiology consult Dr. Campa, recommend changing to hemodialysis from peritoneal dialysis #ESRD, Hemodialysis #Periotoneal Dialysis, Stopped #ESRD secondary to Granulomatosis Per patient history, follows Dr. Amezcua and Dr. Coley. Patient developed ESRD several years ago likely secondary to Granulomatosis. Consult nephrology for scheduled daily dialysis. Plan -Possible change from hemodialysis to CRRT -Hemodialysis 03/16: removed 800 mL, 03/17 1.0 L, 03/18 no dialysis, planned for 03/19 -Strict in and outs. --10,000 unit ProCrit Epoetin-Andrew given today -Avoid nephrotoxins, consider renal dosing -Nephrology Consulted, Dr. Amezcua, appreciate recommendations. -Peritoneal fluid culture: no growth #Hyperkalemia #Hyperphosphatemia Pertinent labs: Potassium uptrending from 4.6 on 03/18 to 5.7 on 03/19; Phosphorus uptrending from 4.5 on 03/18 to 6.8 on 03/19 Plan: -Resume hemodialysis 03/19 -Possible start to CRRT #Acute Anemia Patient FOBT positive overnight 03/17 Pertinent labs: 03/17 MCV 89 RBC 2.84 Hgb 8.5 Hct 25.2 03/19 MCV 86 RBC 2.75 Hgb 8.3 Hct 23.6 Plan: -GI consult, Dr. 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 Patient has been given senna, docusate, lactulose, glycerin. KUB negative for obstructive patter. Plan: -Continue lactulose 60 mg PO TID PRN -Oil enema, followed by possible fecal disimpaction if necessary #Concern for Hyperthyroidism Noted suppressed TSH and elevated T4 levels, limited utility of thyroid function test during acute illness and hospitalization. the patient will eventually require repeat thyroid function test once discharged to confirm thyroid disorders. Also patient has longstanding history of MAT likely secondary to pulmonary disorder, less likely influenced by thyroid. -Thyroid US: bilateral vascular thyroid nodules, consider fine needle aspiration; 03/15 TSH 0.02 T4 1.62 -03/11 TPO 1 TSI 89 -Chest CT 03/18 demonstrated right thyroidmegaly with multiple right lobe nodules -Repeat thyroid function testing in 3 to 4 weeks after discharge, and follow-up with men's furnishings salesperson -Continue methimazole 5 mg PO TID #MAT #Atrial Fibrillation, less likely #EKG Abnormalities Patient has a past medical history of previous reported Atrial Fibrillation, per daughter, was told it was less likely atrial fibrillation, decision was made for no Eliquis and only Plavix on board for history of CVA. This EKG read A.fib w/ rvr but not all leads irregular and some noted with possible p waves. r waves present, no deep q waves noted. V1/V2 possible t wave abnormalities. 03/14/2025 EKG ordered, noted HR 100 likely MAT, likely secondary to levalbuterol. Consider decreasing Levalbuterol doses as patient's work of breathing improves. Plan -Diltiazem 240 mg PO uptitrated to 360 mg PO QD for tachycardia per cardiology recommendation Dr. Olivares -AVOID BETA BLOCKERS GIVEN ASTHMA EXACERBATION #Mild Transaminitis #Possible Hepatopulmonary Syndrome Patient's AST remaining elevated; ALT trending upwards Pertinent labs: 03/09 AST/ALT 46/46; 03/11: 37/63; 03/14: 36/105; 03/16: 48/111 03/17: 49/96 03/19: 37/70 Plan: Monitor and trend liver enzymes if concern, consider hepatitis panel Possible hepatopulmonary syndrome, due to potential fluid overload seen on CXR 03/16 #Mild Troponemia #NSTEMI, type II likely demand ischemia Mild elevation in Troponin likely in the setting of demand ischemia from asthma exacerbation. Denied chest pain, palpitations, or chest pressure. No st elevation noted. Plan -Repeat Troponin 03/10 peaked at 0.141. #Single Episode of Hematemsis #Normocytic Normochromic Anemia Pertinent lab values 03/15 MCV 84 Hgb 9.8 Hct 27.6 RBC 3.27 03/16 MCV 87 Hgb 9.5 Hct 27.8 RBC 3.19 Given past medical history of GERD, consider gastric ulcers-given reported coffee ground emesis vs Granulomatosis flare vs lower GI bleed. Plan: -Monitor hgb >7 goal -Consider occult blood AM, if worsening drop -Consider gastroenterology consult with Dr. Abraham, if repeat episodes of coffee ground emesis #History of CVA Past medical history of CVA Plan -plavix given coffee ground emesis. #GERD #Gastritis (?) Per the patient's daughter, the patient recently experienced coffee ground emesis w/ history of GERD. Plan: Continue Pantoprazole 40 mg PO QD #history of Fracture Neck of Right Femur Patient underwent surgical repair of closed right hip neck fracture on 12/01/[address] Lee Plan: Monitor for possible rehabilitation DVT prophylaxis: No DVT prophylaxis in setting of suspected GI bleed and anemia GI prophylaxis: IV Protonix qday Diet: Renal Diet Lines: Peripheral IV Code status: Full code Case reviewed with attending Dr. Martinez and senior resident Dr. Miller. Nneka Sena MS-4 - The patient's plan was discussed with attending Dr. Juan Miller MD PGY2 Internal Medicine Attending Provider Attestation/Addendum 84-year-old female with multiple comorbidities including heart failure with preserved EF with EF 55-60%, severe aortic stenosis with V-max 3.8, pulmonary hypertension, granulomatosis with polyangiitis with subsequent end-stage renal disease on peritoneal dialysis history of ischemic CVA with right-sided hemiparesis, hypertension, hyperlipidemia presented to the ER with shortness of breath found to have acute hypoxic respiratory failure multifactorial including asthma exacerbation and fluid overload state. Initially, patient did require BiPAP and advised to continue IV steroids, IV antibiotic therapy and plan for peritoneal dialysis. Furthermore, patient also has moderate to severe aortic stenosis with pulmonary arterial hypertension and plan to consult cardiology. Overnight, patient respiratory status improving currently on 10 L oxy mask. Discussed case with pulmonary and nephrology team and plan for a TDC placement for possible hemodialysis initiation. In addition, plan to continue IV steroids, IV antibiotic and peritoneal dialysis. Appreciate cardiology, pulmonary and nephrology input. I reviewed above note and agree with findings and plans. I have also personally examined the patient with medicine team and went over assessment and plan with medical team including employee communications intern and resident physician.
[2025-03-19] MEDS: BREZTRI 2 EA INH (10:22)
--- NOTE | 2025-03-19 10:23 | PD.RESPRO ---
Documentation for date of: 03/19/25 Subjective Subjective Interval history: Overnight events: No acute events overnight. Patient was seen and examined at bedside. AM vitals and labs reviewed. WBC 19.7, H&H 8.3/23.6, sodium 133, potassium 5.7, BUN 84, creatinine 4.5, GFR 9, phosphorus 6.8. Patient's last hemodialysis was completed on 03/17 with a duration of 3 hours, net total removal of 1 L of fluid. Pulmonology was consulted, and given respiratory distress of patient, they recommended another hemodialysis session on 03/18, but patient family wanted to reevaluate on 03/19. 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 CT chest done 03/18 showed right thyromegaly with poorly defined right thyroid nodules and extensive opacity in both lungs that is most consistent with pneumonia. During today's visit the patient seen to not be in any acute distress, however it was noted that the patient seemed to be repeating the same phrase over and over again. Accessory muscle use was noted. When pulse oximetry was checked, patient was desatting at 85% O2 on HFNC. This prompted pulmonology and primary team to come and discuss with the patient and the patient's family regarding respiratory status. The decision to pursue CRRT with an UF goal of 2 to 2.5 L was made. Patient is pending transfer to ICU for CRRT and further respiratory support. Procrit 10,000 units subQ was ordered due to patient's anemia. Patient plans to see Dr. Leo in [place] for outpatient hemodialysis management. Review of systems otherwise negative except for what is mentioned above. Exam Vital Signs Temp Pulse Resp BP Pulse Ox O2 Del Method O2 Flow Rate 97.4 F 95 23 H 146/94 H 92 L High Flow Nasal Cannula 03/19/25 04:00 03/19/25 10:15 03/19/25 10:15 03/19/25 09:07 03/19/25 10:15 03/19/25 04:00 03/19/25 10:15 FiO2 30 03/19/25 10:15 Narrative Exam Physical Exam: General: Alert, no acute distress. Skin: Warm, dry, intact, no obvious rash. Head: Normocephalic, atraumatic. Respiratory: Respirations labored on HFNC. Objective Labs 03/22/25 05:50 03/22/25 05:50 Labs: Laboratory Results - last 24 hr 03/11/25 03/18/25 03/19/25 17:59 14:17 05:47 WBC 19.7 H RBC 2.75 L Hgb 8.3 L Hct 23.6 L MCV 86 MCH 30.2 MCHC 35.2 RDW Std Deviation 48.8 H Plt Count 173 Neut % (Auto) 93 H Lymph % (Auto) 2 L Jenkins % (Auto) 3 Eos % (Auto) 0 Baso % (Auto) 0 Neut # (Auto) 18.3 H Lymph # (Auto) 0.3 L Jenkins # (Auto) 0.6 Eos # (Auto) 0.0 Baso # (Auto) 0.0 Immature Gran # (Auto) 0.38 H Absolute Nucleated RBC 0.03 H Immature Gran % 2 H Nucleated RBC % 0 Puncture Site ABG pH ABG pCO2 ABG pO2 ABG HCO3 ABG O2 Saturation ABG Base Excess VBG pH 7.45 VBG pCO2 39 VBG pO2 59 H VBG O2 Sat (Tammie) 91 L VBG Base Excess 3 FiO2 Sodium 133 L Potassium 5.7 H D Chloride 94 L Carbon Dioxide 24.7 Anion Gap 14 BUN 84 H Creatinine 4.5 H* D Estim Creat Clear Calc 7.0 L eGFR 9 L* BUN/Creatinine Ratio 19 Glucose 136 H Calculated Osmolality 293 Calcium 8.4 Corrected Calcium 8.7 Phosphorus 6.8 H Magnesium 1.9 Total Bilirubin 0.4 AST 37 H ALT 70 H Alkaline Phosphatase 53 Total Protein 5.8 Albumin 3.6 Globulin 2.2 L Albumin/Globulin Ratio 1.6 Random Vancomycin 20.0 ANCA Screen POSITIVE A c-ANCA Titer 1:20 H Anti-Proteinase 3 16.9 H p-ANCA Titer TNP Atypical p-ANCA Titer TNP Anti-Myeloperoxidase <1.0 03/19/25 08:33 WBC RBC Hgb Hct MCV MCH MCHC RDW Std Deviation Plt Count Neut % (Auto) Lymph % (Auto) Jenkins % (Auto) Eos % (Auto) Baso % (Auto) Neut # (Auto) Lymph # (Auto) Jenkins # (Auto) Eos # (Auto) Baso # (Auto) Immature Gran # (Auto) Absolute Nucleated RBC Immature Gran % Nucleated RBC % Puncture Site Right Radial ABG pH 7.36 ABG pCO2 43 ABG pO2 66 L ABG HCO3 24 ABG O2 Saturation 91 ABG Base Excess -1 VBG pH VBG pCO2 VBG pO2 VBG O2 Sat (Tammie) VBG Base Excess FiO2 30 Sodium Potassium Chloride Carbon Dioxide Anion Gap BUN Creatinine Estim Creat Clear Calc eGFR BUN/Creatinine Ratio Glucose Calculated Osmolality Calcium Corrected Calcium Phosphorus Magnesium Total Bilirubin AST ALT Alkaline Phosphatase Total Protein Albumin Globulin Albumin/Globulin Ratio Random Vancomycin ANCA Screen c-ANCA Titer Anti-Proteinase 3 p-ANCA Titer Atypical p-ANCA Titer Anti-Myeloperoxidase ABG Interpretation ABG results: 03/09/25 03/09/25 03/10/25 07:50 18:22 09:05 ABG pH 7.45 ABG pCO2 39 ABG pO2 289 H ABG HCO3 27 H ABG O2 Saturation 101 H ABG Base Excess 2 VBG pH 7.39 7.49 VBG pCO2 49 37 D VBG pO2 70 H 68 H VBG Base Excess 4 H 5 H 03/11/25 03/12/25 03/16/25 10:09 09:44 03:09 ABG pH 7.40 7.41 ABG pCO2 44 46 ABG pO2 80 L D 97 ABG HCO3 27 H 29 H ABG O2 Saturation 95 98 ABG Base Excess 2 4 H VBG pH 7.45 VBG pCO2 40 VBG pO2 39 D VBG Base Excess 4 H 03/18/25 03/19/25 14:17 08:33 ABG pH 7.36 ABG pCO2 43 ABG pO2 66 L ABG HCO3 24 ABG O2 Saturation 91 ABG Base Excess -1 VBG pH 7.45 VBG pCO2 39 VBG pO2 59 H VBG Base Excess 3 Quality Measures Quality Measures none Advance care planning discussed with:: patient and child Assessment & Plan Assessment Current Active Medications: Generic Name Dose Route Start Last Admin Trade Name Freq PRN Reason Stop Dose Admin Acetaminophen 650 mg 03/09/25 14:41 03/16/25 22:38 Acetaminophen 325 Mg Tablet PO 04/08/25 14:40 650 mg Q6H PRN Administration Mild Pain(1-3) or Fever >100.3 Albuterol 5 mg 03/18/25 15:00 03/19/25 10:14 Albuterol Rt 2.5 Mg/0.5 Ml Nebu INH 04/17/25 14:59 5 mg Q4HRRT SABRINA Administration Albuterol/Ipratropium 3 ml 03/16/25 17:12 Albuterol/Ipratropium (Duoneb) Rt Annika 3 Ml Nebu INH 04/15/25 17:11 Q2HR PRN SHORTNESS OF BREATH OR WHEEZE Atorvastatin Calcium 40 mg 03/09/25 21:00 03/18/25 21:30 Atorvastatin Calcium 20 Mg Tablet PO 04/08/25 20:59 40 mg HS SABRINA Administration Dextrose 25 ml 03/12/25 08:16 Dextrose 50%-Water Inj 50 Ml Syringe IV 04/11/25 08:15 Q15MIN PRN BG 50-70 responsive npo pt Dextrose 50 ml 03/12/25 08:16 Dextrose 50%-Water Inj 50 Ml Syringe IV 04/11/25 08:15 Q15MIN PRN BG <50 OR BG <70 & pt unresponsive Diltiazem HCl 360 mg 03/18/25 09:00 03/19/25 09:07 Diltiazem Cd 120 Mg Capcr PO 04/17/25 08:59 360 mg QDAY SABRINA Administration Glucagon 1 mg 03/12/25 08:16 Glucagon Inj 1 Mg Vial IM Q15MIN PRN BG <70, and no IV access Guaifenesin 200 mg 03/16/25 14:00 03/19/25 05:35 Guaifenesin Syrup 200 Mg/10 Ml Udc PO 04/15/25 13:59 200 mg TID SABRINA Administration Protocol Heparin Sodium (Porcine) 3,300 unit 03/15/25 15:49 03/17/25 12:26 Heparin Sod Inj 1000 Unit/Ml Vial 10 Ml INDWELLCAT 03/29/25 15:48 3,300 unit X1 PRN Administration DIALYSIS Cefepime HCl 1 gm/ Sodium 50 mls @ 100 mls/hr 03/18/25 16:12 03/19/25 09:09 Chloride IV 03/25/25 16:11 100 mls/hr QDAY SABRINA Administration Insulin Human Lispro 0 unit 03/12/25 11:30 03/19/25 07:41 Insulin Lispro (Admelog) 1 Unit/0.01 Ml Unit SC 04/11/25 11:29 Not Given AC SABRINA Protocol Ipratropium Meacham 0.5 mg 03/10/25 15:00 03/19/25 10:14 Ipratropium Rt 0.5 Mg/ 2.5 Ml Nebu INH 04/09/25 14:59 0.5 mg Q4HRRT SABRINA Administration Lactulose 60 gm 03/17/25 10:07 Lactulose Syrup 20 Gm/30 Ml Udc PO 04/15/25 05:59 TID PRN constipation Protocol Melatonin 3 mg 03/09/25 23:18 03/15/25 18:33 Melatonin 3 Mg Tablet PO 04/09/25 20:59 3 mg HS PRN Administration insomnia Methimazole 5 mg 03/15/25 08:45 03/19/25 05:35 Methimazole 5 Mg Tablet PO 04/14/25 08:44 5 mg TID SABRINA Administration Methylprednisolone Sodium Succinate 40 mg 03/18/25 21:00 03/19/25 09:08 Methylprednisolone Sod Succ 40 Mg Vial IVP 03/25/25 20:59 40 mg BID SABRINA Administration Ondansetron HCl 4 mg 03/09/25 14:41 Ondansetron Inj 2 Mg/Ml Inj 2 Ml IVP 04/08/25 14:40 Q6H PRN NAUSEA OR VOMITING Protocol Pantoprazole Sodium 40 mg 03/17/25 03:00 03/19/25 09:07 Pantoprazole Inj 40 Mg Vial IVP 04/16/25 02:59 40 mg BID SABRINA Administration Breztri (Budesonide, 2 ea 03/13/25 12:00 03/19/25 10:22 Glycopyrrolate And INH 04/12/25 11:59 2 puff Formoterol) BID SABRINA Administration Pharmacy Consult 1 each 03/18/25 16:15 Vancomycin Pharmacy To Dose 1 Each Each IV 04/17/25 16:14 QDAY PRN CONSULT Pharmacy Consult 1 each 03/18/25 16:09 Pharmacy Renal Dose Adjustment 1 Ea XX 04/17/25 16:08 PRN PRN CONSULT Sodium Chloride 3 ml 03/11/25 16:26 Sodium Chloride Rt Annika 0.9% 3 Ml Nebu INH 04/10/25 16:25 PRN PRN SOLN Trazodone HCl 25 mg 03/18/25 13:50 03/18/25 21:31 Trazodone Hcl 50 Mg Tablet PO 04/16/25 22:09 25 mg HS PRN Administration insomnia Plan Mrs. 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 Nephrology was consulted for management of her peritoneal dialysis. Due to concerns of PNA and inadequate HD, patient pending transfer to ICU on 03/19 for additional respiratory support/monitoring and CRRT. #ESRD on Peritoneal Dialysis #ESRD 2/2 Donna's Granulomatosis #Fluid overload status #Anemia - Discontinued nightly peritoneal dialysis. - Permanent dialysis catheter placed 03/15. - Peritoneal dialysis was not sufficient in removing adequate volume. - Hemodialysis performed 03/15, 03/16, 03/17 - CRRT ordered to start on 03/19 for continued respiratory concerns even with HD. - Procrit 10,000 units once via subQ ordered for anemia. - Continue to monitor renal function. - Avoid IV hydration given past history of fluid overload and CHF. - Avoid nephrotoxic drugs and renally adjust medications. - Patient to follow up with outpatient door to door selling agent Dr. Leo for dialysis once discharged. - Nephrology will continue to follow. Patient was discussed with the Nephrology attending, Dr. Amezcua. Thank you for allowing us to participate in the care of this patient. Rogelio Asher, PGY-1 Attending Provider Attestation/Addendum with assessment and plan and finding of resident. Seen and examined. Labs are reviewed Temo Amezcua MD
--- NOTE | 2025-03-19 11:42 | PC.SS ---
[employer] O[employer] confirmed with bedside nurse that Dr. Amezcua is consulting on patient's case. Patient's stripe marker is Dr. Leo.
--- NOTE | 2025-03-19 12:35 | PC.SS ---
Update: Patient to be upgraded to ICU.
[2025-03-19] MEDS: EPOETIN ALFA-EPBX INJ 10,000 UNIT/ML VIAL (ESRD) 10000 UNIT SC (14:27)
--- NOTE | 2025-03-19 15:53 | ESHP_ITS ---
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 Daughter reported that 1 week before her symptoms her grandson had flulike symptoms few days after that the patient's son-in-law started to have, similar symptoms. After that the patient started develop worsening asthma symptoms. No fever or chills reported however the daughter reported that sometimes she would have arthritis with joint swelling affecting small and large size joints that would resolve and appearing other joints. Patient on regular peritoneal dialysis regularly at home. As per daughter patient denied any chest pain at that time, orthopnea, palpitation, or dizziness. The daughter reported that the patient used to be active and can go to the bathroom and move around the house without assistance. As per the daughter patient has only 2 episodes of Antonia's flares 1 in [facility] in when she was diagnosed with active disease and was treated with high-dose of steroid and the other was in [place] in 2018. Her symptoms were nasal congestion, epistaxis, shortness of breath, the daughter reported that her steroid helped with her symptoms during these 2 occasions. Denied any abdominal pain, fever, chills, skin rash, nosebleed. During her stay at the hospital patient condition continued to worsen and significantly after she started hemodialysis as per the daughter. Her chest x- ray after hemodialysis that was done on 15 March showed significant worsening of her pulmonary congestion. Patient ABG was consistently within normal values. However patient's work of breath continue to worsen over time requiring BiPAP. Multiple trials of DuoNebs, IV steroid did not help with her symptoms. Patient was initially started on azithromycin and ceftriaxone however with no response, currently patient antibiotics are cefepime and vancomycin. Search Developer and supervisor liquid yeast believe that the patient has pulmonary vascular congestion secondary to her severe aortic stenosis. Because the patient is unable to tolerate hemodialysis ultrafiltration patient was upgraded to ICU for CRRT with goal to remove 2 to 2.5 L a day. Home medications: Albuterol, atorvastatin, cholestyramine, clopidogrel, diltiazem, Zofran, pantoprazole, budesonide inhaler PMH: As above PSX: ORIF for the right hip fracture PFX: Significant history of asthma among family members Social hx: Alcohol: Denied Tobacco: Denied Illicit drugs: Denied Allergies: Shrimp, NSAIDs results none significant angioedema. Review of Systems Review of Systems Systems Reviewed: All systems reviewed, normal except as documented Exam Vital Signs Temp Pulse Resp BP Pulse Ox O2 Del Method O2 Flow Rate 96.9 F 81 24 H 120/62 95 BiPAP 03/19/25 14:45 03/19/25 15:45 03/19/25 15:45 03/19/25 15:45 03/19/25 15:45 03/19/25 15:45 03/19/25 12:00 FiO2 03/19/25 15:45 Narrative Exam GEN: Lethargic, sleepy on BiPAP however she responded with yes or no questions. HEENT: NC/AC, oral mucosa dry, neck supple, hemodialysis catheter on the right side, surrounded by ecchymosis. CVS: RRR, S1-S2 present, no murmurs appreciated RESP: Biphasic wheezing bilaterally, increased work of breath, no visible surgical scars. GI: Ecchymosis on the right side of the abdomen, peritoneal dialysis catheter on the left side of the lower abdomen. Soft,non distended, non tender, NBS MSK: able to move all 4 limbs, +1 lower extremity edema SKIN: warm and dry WOOD POLE TREATER: CN II-XII and Sensation grossly intact. Results: Labs 03/20/25 03:25 03/20/25 06:15 Labs: Short CBC 03/19/25 Range/Units 05:47 WBC 19.7 H (3.6-11.0) Thou/mm3 Hgb 8.3 L (12.0-16.0) g/dL Hct 23.6 L (36.0-46.0) % Plt Count 173 (140-440) Thou/mm3 BMP 03/19/25 05:47 Sodium 133 L Potassium 5.7 H D Chloride 94 L Carbon Dioxide 24.7 BUN 84 H Creatinine 4.5 H* D Glucose 136 H Calcium 8.4 Liver Function 03/19/25 Range/Units 05:47 Total Bilirubin 0.4 (0.3-1.2) mg/dL AST 37 H (0-34) U/L ALT 70 H (10-49) U/L Alkaline Phosphatase 53 (46-116) U/L Albumin 3.6 (3.4-4.8) gm/dL ABG Interpretation ABG results: 03/09/25 03/09/25 03/10/25 07:50 18:22 09:05 ABG pH 7.45 ABG pCO2 39 ABG pO2 289 H ABG HCO3 27 H ABG O2 Saturation 101 H ABG Base Excess 2 VBG pH 7.39 7.49 VBG pCO2 49 37 D VBG pO2 70 H 68 H VBG Base Excess 4 H 5 H 03/11/25 03/12/25 03/16/25 10:09 09:44 03:09 ABG pH 7.40 7.41 ABG pCO2 44 46 ABG pO2 80 L D 97 ABG HCO3 27 H 29 H ABG O2 Saturation 95 98 ABG Base Excess 2 4 H VBG pH 7.45 VBG pCO2 40 VBG pO2 39 D VBG Base Excess 4 H 03/18/25 03/19/25 14:17 08:33 ABG pH 7.36 ABG pCO2 43 ABG pO2 66 L ABG HCO3 24 ABG O2 Saturation 91 ABG Base Excess -1 VBG pH 7.45 VBG pCO2 39 VBG pO2 59 H VBG Base Excess 3 Quality Measures Quality Measures none Advance care planning discussed with:: child Medications Home Medications and Allergies Home Medications ?Medication ?Instructions ?Recorded ?Confirmed ?Type atorvastatin 40 mg tablet 40 mg PO QDAY 08/15/1903/11 History acetaminophen 325 mg tablet 650 mg PO Q6H PRN fever or pain 03/11/25 03/11/25 History (Tactinal) diltiazem HCl 240 mg 240 mg PO DAILY 03/11/2502/28 History capsule,extended release 24 hr Allergies Allergy/AdvReac Type Severity Reaction Status Date / Time shrimp Allergy Severe Wheezing Verified 01/01/25 10:01 NSAIDS (Non-Steroidal Allergy Intermediate Swelling Verified 01/01/25 10:01 Anti-Inflamma Penicillins Allergy Intermediate Rash Verified 01/01/25 10:01 Visit Medications Acetaminophen (Acetaminophen 325 Mg Tablet) 650 mg PO Q6H PRN PRN Reason: Mild Pain(1-3) or Fever >100.3 Stop: 04/08/25 14:40 Last Admin: 03/16/25 22:38 Dose: 650 mg Albuterol (Albuterol Rt 2.5 Mg/0.5 Ml Nebu) 5 mg INH Q4HRRT [facility] Stop: 04/17/25 14:59 Last Admin: 03/19/25 14:12 Dose: 5 mg Albuterol/Ipratropium (Albuterol/Ipratropium (Duoneb) Rt Annika 3 Ml Nebu) 3 ml INH Q2HR PRN PRN Reason: SHORTNESS OF BREATH OR WHEEZE Stop: 04/15/25 17:11 Atorvastatin Calcium (Atorvastatin Calcium 20 Mg Tablet) 40 mg PO HS [facility] Stop: 04/08/25 20:59 Last Admin: 03/18/25 21:30 Dose: 40 mg Dextrose (Dextrose 50%-Water Inj 50 Ml Syringe) 25 ml IV Q15MIN PRN PRN Reason: BG 50-70 responsive npo pt Stop: 04/11/25 08:15 Dextrose (Dextrose 50%-Water Inj 50 Ml Syringe) 50 ml IV Q15MIN PRN PRN Reason: BG <50 OR BG <70 & pt unresponsive Stop: 04/11/25 08:15 Diltiazem HCl (Diltiazem Cd 120 Mg Capcr) 360 mg PO QDAY [facility] Stop: 04/17/25 08:59 Last Admin: 03/19/25 09:07 Dose: 360 mg Glucagon (Glucagon Inj 1 Mg Vial) 1 mg IM Q15MIN PRN PRN Reason: BG <70, and no IV access Guaifenesin (Guaifenesin Syrup 200 Mg/10 Ml Udc) 200 mg PO TID [facility]; Protocol Stop: 04/15/25 13:59 Last Admin: 03/19/25 14:42 Dose: Not Given Heparin Sodium (Porcine) (Heparin Sod Inj 1000 Unit/Ml Vial 10 Ml) 3,300 unit INDWELLCAT X1 PRN PRN Reason: DIALYSIS Stop: 03/29/25 15:48 Last Admin: 03/17/25 12:26 Dose: 3,300 unit Cefepime HCl 1 gm/ Sodium (Chloride) 50 mls @ 100 mls/hr IV QDAY [facility] Stop: 03/25/25 16:11 Last Admin: 03/19/25 09:09 Dose: 100 mls/hr Insulin Human Lispro (Insulin Lispro (Admelog) 1 Unit/0.01 Ml Unit) 0 unit SC AC [facility]; Protocol Stop: 04/11/25 11:29 Last Admin: 03/19/25 11:35 Dose: Not Given Ipratropium [place] (Ipratropium Rt 0.5 Mg/ 2.5 Ml Nebu) 0.5 mg INH Q4HRRT [facility] Stop: 04/09/25 14:59 Last Admin: 03/19/25 14:12 Dose: 0.5 mg Lactulose (Lactulose Syrup 20 Gm/30 Ml Udc) 60 gm PO TID PRN; Protocol PRN Reason: constipation Stop: 04/15/25 05:59 Melatonin (Melatonin 3 Mg Tablet) 3 mg PO HS PRN PRN Reason: insomnia Stop: 04/09/25 20:59 Last Admin: 03/15/25 18:33 Dose: 3 mg Methimazole (Methimazole 5 Mg Tablet) 5 mg PO TID [facility] Stop: 04/14/25 08:44 Last Admin: 03/19/25 14:50 Dose: 5 mg Methylprednisolone Sodium Succinate (Methylprednisolone Sod Succ 40 Mg Vial) 40 mg IVP BID [facility] Stop: 03/25/25 20:59 Last Admin: 03/19/25 09:08 Dose: 40 mg Ondansetron HCl (Ondansetron Inj 2 Mg/Ml Inj 2 Ml) 4 mg IVP Q6H PRN; Protocol PRN Reason: NAUSEA OR VOMITING Stop: 04/08/25 14:40 Pantoprazole Sodium (Pantoprazole Inj 40 Mg Vial) 40 mg IVP BID [facility] Stop: 04/16/25 02:59 Last Admin: 03/19/25 09:07 Dose: 40 mg Breztri (Budesonide, Glycopyrrolate And Formoterol) 2 ea INH BID [facility] Stop: 04/12/25 11:59 Last Admin: 03/19/25 10:22 Dose: 2 puff Pharmacy Consult (Vancomycin Pharmacy To Dose 1 Each Each) 1 each IV QDAY PRN PRN Reason: CONSULT Stop: 04/17/25 16:14 Pharmacy Consult (Pharmacy Renal Dose Adjustment 1 Ea) 1 each XX PRN PRN PRN Reason: CONSULT Stop: 04/17/25 16:08 Sodium Chloride (Sodium Chloride Rt Annika 0.9% 3 Ml Nebu) 3 ml INH PRN PRN PRN Reason: SOLN Stop: 04/10/25 16:25 Trazodone HCl (Trazodone Hcl 50 Mg Tablet) 25 mg PO HS PRN PRN Reason: insomnia Stop: 04/16/25 22:09 Last Admin: 03/18/25 21:31 Dose: 25 mg Discontinued Medications Hydrocodone Bitart/Acetaminophen (Hydrocodone/Apap 5/325 Tablet) 1 tab PO Q4HR PRN PRN Reason: PAIN SCALE 4-10(Mod-Sev Stop: 03/14/25 14:40 Acetylcysteine (Acetylcysteine Rt Annika 10% 4 Ml Nebu) 3 ml INH Q4HRRT ONE Stop: 03/18/25 10:32 Last Admin: 03/18/25 10:48 Dose: 3 ml Albuterol (Albuterol Rt 2.5 Mg/3 Ml Nebu) 5 mg INH X1 ONE Stop: 03/09/25 07:47 Last Admin: 03/09/25 08:32 Dose: 5 mg Albuterol (Albuterol Rt 2.5 Mg/0.5 Ml Nebu) 15 mg INH X1 ONE Stop: 03/11/25 10:23 Last Admin: 03/11/25 10:35 Dose: 15 mg Albuterol (Albuterol Rt 2.5 Mg/0.5 Ml Nebu) 5 mg INH Q6HRRT [facility] Stop: 04/10/25 18:59 Last Admin: 03/11/25 21:15 Dose: Not Given Albuterol (Albuterol Rt 2.5 Mg/0.5 Ml Nebu) 20 mg INH X1 ONE Stop: 03/11/25 16:27 Last Admin: 03/16/25 07:14 Dose: Not Given Albuterol (Albuterol Rt 2.5 Mg/0.5 Ml Nebu) 2.5 mg INH Q4HRRT [facility] Stop: 04/17/25 10:59 Last Admin: 03/18/25 10:47 Dose: 2.5 mg Albuterol (Albuterol Rt 2.5 Mg/0.5 Ml Nebu) 5 mg INH Q4HRRT [facility] Stop: 04/17/25 10:59 Albuterol/Ipratropium (Albuterol/Ipratropium (Duoneb) Rt Annika 3 Ml Nebu) 3 ml INH Q2HR ONE Stop: 03/18/25 10:31 Last Admin: 03/18/25 10:47 Dose: 3 ml Budesonide (Budesonide Rt 0.5 Mg/2 Ml Nebu) 1 mg INH BIDRT [facility] Stop: 04/10/25 09:59 Last Admin: 03/14/25 06:11 Dose: 1 mg Clopidogrel Bisulfate (Clopidogrel Bisulfate 75 Mg Tablet) 75 mg PO QDAY [facility] Stop: 04/09/25 08:59 Last Admin: 03/14/25 09:17 Dose: 75 mg Diltiazem HCl (Diltiazem Cd 120 Mg Capcr) 240 mg PO X1 ONE Stop: 03/09/25 07:47 Last Admin: 03/09/25 09:41 Dose: 240 mg Diltiazem HCl (Diltiazem Cd 120 Mg Capcr) 240 mg PO QDAY [facility] Stop: 04/09/25 08:59 Last Admin: 03/17/25 12:55 Dose: Not Given Diltiazem HCl (Diltiazem Cd 120 Mg Capcr) 120 mg PO X1 ONE Stop: 03/17/25 10:11 Last Admin: 03/17/25 12:46 Dose: 120 mg Diltiazem HCl (Diltiazem Cd 120 Mg Capcr) 240 mg PO X1 ONE Stop: 03/17/25 15:27 Last Admin: 03/17/25 15:35 Dose: 240 mg Diphenhydramine HCl (Diphenhydramine Inj 50 Mg/Ml Vial) 12.5 mg IVP X1 ONE Stop: 03/09/25 16:25 Last Admin: 03/09/25 16:49 Dose: 12.5 mg Docusate Sodium (Docusate Sod 100 Mg Capsule) 200 mg PO QDAY [facility]; Protocol Stop: 04/14/25 08:59 Last Admin: 03/18/25 08:54 Dose: 200 mg Epoetin Andrew (Epoetin Andrew-Epbx Inj 2,000 Unit/Ml Vial (Esrd)) 1,000 unit SC X1 ONE Stop: 03/19/25 11:09 Last Admin: 03/19/25 14:30 Dose: Not Given Epoetin Andrew (Epoetin Andrew-Epbx Inj 10,000 Unit/Ml Vial (Esrd)) 10,000 unit SC X1 ONE Stop: 03/19/25 11:09 Last Admin: 03/19/25 14:27 Dose: 10,000 unit Famotidine (Famotidine Inj 10 Mg/Ml Vial 2 Ml) 20 mg IVP X1 ONE Stop: 03/09/25 07:47 Last Admin: 03/09/25 08:15 Dose: 20 mg Fentanyl Citrate (Fentanyl Cit Inj 50 Mcg/Ml Amp 2ml) 37.5 mcg IVP X1 ONE Stop: 03/15/25 14:09 Last Admin: 03/15/25 14:08 Dose: 37.5 mcg Gabapentin (Gabapentin 100 Mg Capsule) 100 mg PO BID [facility] Stop: 04/10/25 12:14 Last Admin: 03/12/25 11:28 Dose: Not Given Gabapentin (Gabapentin 100 Mg Capsule) 100 mg PO X1 ONE Stop: 03/15/25 18:56 Last Admin: 03/15/25 21:47 Dose: 100 mg Gabapentin (Gabapentin 100 Mg Capsule) 100 mg PO HS [facility] Stop: 04/16/25 21:29 Gabapentin (Gabapentin 100 Mg Capsule) 100 mg PO HS [facility] Stop: 04/16/25 19:59 Glycerin (Glycerin, Adult 1 Ea Supp) 1 each ME X1 ONE Stop: 03/15/25 18:46 Last Admin: 03/15/25 21:19 Dose: 1 each Guaifenesin (Guaifenesin Syrup 200 Mg/10 Ml Udc) 100 mg PO X1 ONE; Protocol Stop: 03/16/25 03:29 Last Admin: 03/16/25 04:08 Dose: 100 mg Heparin Sodium (Beef Lung) (Heparin Sod Lock Syr 100 Unit/Ml) 500 unit [place] X1 ONE Stop: 03/15/25 14:09 Last Admin: 03/15/25 14:10 Dose: 500 unit Heparin Sodium (Porcine) (Heparin Sod Inj 5000 Unit/Ml Vial) 5,000 unit SC BID [facility] Stop: 03/23/25 20:59 Last Admin: 03/14/25 21:08 Dose: 5,000 unit Hydroxyzine HCl (Hydroxyzine Hcl 25 Mg Tablet) 25 mg PO HS [facility] Stop: 04/08/25 20:59 Last Admin: 03/12/25 21:23 Dose: Not Given Sodium Chloride (Ns) 500 mls @ 999 mls/hr IV .Q31M ONE Stop: 03/09/25 08:16 Last Infusion: 03/09/25 08:19 Dose: 0 mls/hr Magnesium Sulfate (Magnesium Sulfate Ivpb) 2 gm in 50 mls @ 25 mls/hr IV X1 ONE Stop: 03/09/25 16:48 Last Infusion: 03/09/25 16:52 Dose: Infused Magnesium Sulfate (Magnesium Sulfate Ivpb) 2 gm in 50 mls @ 25 mls/hr IV X1 ONE Stop: 03/09/25 20:37 Last Admin: 03/09/25 19:17 Dose: 25 mls/hr Azithromycin 500 mg/ Sodium (Chloride) 250 mls @ 250 mls/hr IV QDAY [facility] Stop: 03/12/25 08:59 Last Admin: 03/11/25 09:42 Dose: 250 mls/hr Ceftriaxone Sodium/Dextrose (Rocephin/D5w 1gm Iv Premix) 1 gm in 50 mls @ 100 mls/hr IV QDAY [facility] Stop: 03/17/25 07:59 Last Admin: 03/11/25 09:24 Dose: 100 mls/hr Magnesium Sulfate (Magnesium Sulfate Ivpb) 2 gm in 50 mls @ 25 mls/hr IV X1 ONE Stop: 03/11/25 12:16 Last Admin: 03/11/25 11:13 Dose: 25 mls/hr Magnesium Sulfate (Magnesium Sulfate Ivpb) 2 gm in 50 mls @ 150 mls/hr IV X1 ONE Stop: 03/11/25 11:49 Last Admin: 03/11/25 11:24 Dose: 150 mls/hr Magnesium Sulfate (Magnesium Sulfate Ivpb) 2 gm in 50 mls @ 25 mls/hr IV X1 ONE Stop: 03/14/25 18:14 Last Admin: 03/14/25 17:42 Dose: 25 mls/hr Albumin Human (Albuminar-25 Ivpb) 25 gm in 100 mls @ 100 mls/min IV PRN PRN PRN Reason: DIALYSIS Stop: 03/18/25 15:48 Last Infusion: 03/19/25 15:08 Dose: Infused Vancomycin/Sodium Chloride (Vancomycin/Ns 1 Gm Ivpb) 200 mls @ 120 mls/hr IV X1 ONE Stop: 03/18/25 18:39 Last Infusion: 03/19/25 15:08 Dose: Infused Ipratropium [place] (Ipratropium Rt 0.5 Mg/ 2.5 Ml Nebu) 0.5 mg INH Q6HR PRN PRN Reason: SHORTNESS OF BREATH Stop: 04/08/25 16:23 Last Admin: 03/09/25 18:09 Dose: 0.5 mg Ipratropium [place] (Ipratropium Rt 0.5 Mg/ 2.5 Ml Nebu) 0.5 mg INH Q6HR [facility] Stop: 04/09/25 00:00 Ipratropium [place] (Ipratropium Rt 0.5 Mg/ 2.5 Ml Nebu) 0.5 mg INH Q6HRRT [facility] Stop: 04/09/25 00:59 Last Admin: 03/10/25 06:15 Dose: 0.5 mg Ipratropium [place] (Ipratropium Rt 0.5 Mg/ 2.5 Ml Nebu) 0.5 mg INH X1 ONE Stop: 03/10/25 11:57 Last Admin: 03/10/25 12:34 Dose: 0.5 mg Ipratropium [place] (Ipratropium Rt 0.5 Mg/ 2.5 Ml Nebu) 0.5 mg INH X1 ONE Stop: 03/11/25 09:52 Last Admin: 03/11/25 10:35 Dose: 0.5 mg Lactulose (Lactulose Syrup 20 Gm/30 Ml Udc) 10 gm PO QDAY [facility]; Protocol Stop: 04/13/25 08:59 Last Admin: 03/14/25 09:16 Dose: 10 gm Lactulose (Lactulose Syrup 20 Gm/30 Ml Udc) 20 gm PO BID [facility]; Protocol Stop: 04/14/25 08:59 Last Admin: 03/16/25 03:13 Dose: 20 gm Lactulose (Lactulose Syrup 20 Gm/30 Ml Udc) 20 gm PO TID [facility]; Protocol Stop: 04/15/25 05:59 Last Admin: 03/16/25 21:25 Dose: Not Given Lactulose (Lactulose Syrup 20 Gm/30 Ml Udc) 20 gm PO TID PRN; Protocol PRN Reason: constipation Stop: 04/15/25 05:59 Levalbuterol HCl (Levalbuterol Rt 1.25 Mg/0.5 Ml Nebu) 1.25 mg INH X1 ONE Stop: 03/09/25 12:15 Last Admin: 03/09/25 13:16 Dose: 1.25 mg Levalbuterol HCl (Levalbuterol Rt 1.25 Mg/0.5 Ml Nebu) 1.25 mg INH Q6HR PRN PRN Reason: WHEEZING Stop: 04/08/25 16:23 Last Admin: 03/09/25 18:09 Dose: 1.25 mg Levalbuterol HCl (Levalbuterol Rt 1.25 Mg/0.5 Ml Nebu) 1.25 mg INH Q6HR [facility] Stop: 04/09/25 00:00 Levalbuterol HCl (Levalbuterol Rt 1.25 Mg/0.5 Ml Nebu) 1.25 mg INH Q6HRRT [facility] Stop: 04/09/25 00:59 Last Admin: 03/10/25 06:15 Dose: 1.25 mg Levalbuterol HCl (Levalbuterol Rt 1.25 Mg/0.5 Ml Nebu) 1.25 mg INH Q4HRRT [facility] Stop: 04/09/25 14:59 Last Admin: 03/18/25 10:00 Dose: 1.25 mg Levalbuterol HCl (Levalbuterol Rt 0.63 Mg/3 Ml Nebu) 0.63 mg INH Q8HR PRN PRN Reason: WHEEZING Stop: 04/10/25 22:52 Last Admin: 03/14/25 16:21 Dose: 0.63 mg Levalbuterol HCl (Levalbuterol Rt 1.25 Mg/0.5 Ml Nebu) 1.25 mg INH Q2HR PRN PRN Reason: SOB/Wheezing Stop: 04/15/25 16:44 Levofloxacin (Levofloxacin 250 Mg Tablet) 250 mg PO QDAY [facility] Stop: 03/24/25 08:59 Last Admin: 03/18/25 08:55 Dose: 250 mg Levofloxacin (Levofloxacin 250 Mg Tablet) 750 mg PO X1 ONE Stop: 03/16/25 04:31 Last Admin: 03/16/25 05:14 Dose: 750 mg Lidocaine HCl (Lidocaine Inj Pf 1% 30 Ml Vial) 11 ml INFL X1 ONE Stop: 03/15/25 14:09 Last Admin: 03/15/25 14:10 Dose: 11 ml Methimazole (Methimazole 5 Mg Tablet) 5 mg PO TID [facility] Stop: 04/13/25 13:59 Last Admin: 03/14/25 21:07 Dose: 5 mg Methylprednisolone Sodium Succinate (Methylprednisolone Sod Succ 62.5 Mg/Ml 2ml Vial) 125 mg IVP X1 ONE Stop: 03/09/25 07:47 Last Admin: 03/09/25 08:13 Dose: 125 mg Methylprednisolone Sodium Succinate (Methylprednisolone Sod Succ 40 Mg Vial) 120 mg IVP X1 ONE Stop: 03/09/25 14:49 Last Admin: 03/09/25 14:57 Dose: 120 mg Methylprednisolone Sodium Succinate (Methylprednisolone Sod Succ 40 Mg Vial) 60 mg IVP TID [facility] Stop: 03/17/25 05:59 Last Admin: 03/11/25 05:08 Dose: 60 mg Methylprednisolone Sodium Succinate (Methylprednisolone Sod Succ 40 Mg Vial) 60 mg IVP BID [facility] Stop: 03/18/25 20:59 Last Admin: 03/14/25 09:16 Dose: 60 mg Methylprednisolone Sodium Succinate (Methylprednisolone Sod Succ 40 Mg Vial) 125 mg IVP X1 ONE Stop: 03/11/25 09:52 Last Admin: 03/11/25 10:16 Dose: 125 mg Methylprednisolone Sodium Succinate (Methylprednisolone Sod Succ 62.5 Mg/Ml 2ml Vial) 125 mg IVP X1 ONE Stop: 03/11/25 10:16 Last Admin: 03/11/25 10:21 Dose: Not Given Methylprednisolone Sodium Succinate (Methylprednisolone Sod Succ 40 Mg Vial) 60 mg IVP QDAY [facility] Stop: 03/22/25 08:59 Last Admin: 03/16/25 09:29 Dose: 60 mg Methylprednisolone Sodium Succinate (Methylprednisolone Sod Succ 40 Mg Vial) 60 mg IVP X1 ONE Stop: 03/16/25 00:59 Last Admin: 03/16/25 02:09 Dose: 60 mg Methylprednisolone Sodium Succinate (Methylprednisolone Sod Succ 40 Mg Vial) 60 mg IVP BID [facility] Stop: 03/23/25 20:59 Last Admin: 03/18/25 08:56 Dose: 60 mg Pantoprazole Sodium (Pantoprazole Inj 40 Mg Vial) 40 mg IVP X1 ONE Stop: 03/09/25 07:47 Last Admin: 03/09/25 08:10 Dose: 40 mg Pantoprazole Sodium (Pantoprazole 40 Mg Tablet) 40 mg PO QDAY [facility] Stop: 04/09/25 08:59 Last Admin: 03/16/25 09:17 Dose: 40 mg Polyethylene Glycol (Polyethylene Glycol 17 Gm Packet) 17 gm PO QDAY [facility] Stop: 04/12/25 16:29 Last Admin: 03/13/25 16:43 Dose: 17 gm Potassium Chloride (Potassium Chloride 10% 20 Meq/15 Ml Udc) 40 meq PO X1 ONE Stop: 03/14/25 16:15 Last Admin: 03/14/25 17:41 Dose: 40 meq Sennosides (Senna Tablet) 1 tab PO QDAY [facility]; Protocol Stop: 04/09/25 08:59 Last Admin: 03/13/25 08:27 Dose: 1 tab Sennosides (Senna Tablet) 2 tab PO QDAY [facility]; Protocol Stop: 04/13/25 08:59 Sennosides (Senna Tablet) 1 tab PO X1 ONE; Protocol Stop: 03/13/25 17:16 Last Admin: 03/13/25 17:33 Dose: 1 tab Sennosides (Senna Tablet) 1 tab PO QDAY [facility]; Protocol Stop: 04/13/25 08:59 Last Admin: 03/18/25 08:54 Dose: 1 tab Sodium Chloride (Sodium Chloride Rt Annika 0.9% 3 Ml Nebu) 3 ml INH X1 ONE Stop: 03/09/25 12:16 Last Admin: 03/09/25 13:17 Dose: 3 ml Sodium Chloride (Sodium Chloride Rt Annika 0.9% 3 Ml Nebu) 3 ml INH PRN PRN PRN Reason: SOLN Stop: 04/08/25 16:23 Last Admin: 03/09/25 18:09 Dose: 3 ml Sodium Chloride (Sodium Chloride Rt 10% 15 Ml Nebu) 5 ml INH X1 ONE Stop: 03/18/25 07:46 Last Admin: 03/18/25 09:56 Dose: Not Given Sodium Chloride (Sodium Chloride Rt Annika 0.9% 3 Ml Nebu) 3 ml INH NOW ONE Stop: 03/18/25 10:32 Last Admin: 03/18/25 11:13 Dose: Not Given Sucralfate (Sucralfate Susp 1 Gm/10 Ml Udc) 1 gm PO X1 ONE Stop: 03/09/25 07:47 Last Admin: 03/09/25 09:41 Dose: 1 gm Trazodone HCl (Trazodone Hcl 50 Mg Tablet) 25 mg PO HS [facility] Stop: 04/17/25 20:59 Trazodone HCl (Trazodone Hcl 50 Mg Tablet) 25 mg PO HS [facility] Stop: 04/16/25 22:09 Last Admin: 03/17/25 22:16 Dose: 25 mg Tuberculin PPD (Tuberculin Ppd Inj 5 Unit/0.1 Ml Dose) 5 unit ID X1 ONE Stop: 03/15/25 08:31 Last Admin: 03/15/25 18:22 Dose: Not Given Tuberculin PPD (Tuberculin Ppd Inj 5 Unit/0.1 Ml Dose) 5 unit ID X1 ONE Stop: 03/15/25 19:46 Last Admin: 03/15/25 19:49 Dose: 5 unit Assessment & Plan Plan Summary:An 84-year-old female patient with past medical history of CHF EF of 60 to 65% March 30, pulmonary artery hypertension, A-fib, CVA with right-sided hemiparesis residual deficit, hypertension, hyperlipidemia, osteoarthritis, osteoporosis, GERD, asthma, moderate to severe aortic stenosis, left atrial dilatation, 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 Patient was upgraded to the ICU secondary to continue to worsen shortness of breath and the need of CRRT. Assessment and plan [employer] #Lethargy Most likely secondary to her prolonged work of breath, kidney failure, hyperlipidemia, possible sepsis 2/2 PNA Plan Will continue to monitor, correct underlying cause, patient is able to follow command, awake. CVS #HFpEF EF of 60 to 65% #Moderate to Severe valve area less than 0.5 cm? patient has history of prolonged hypertension and aortic stenosis. BNP was elevated 1691, echo showed diastolic dysfunction, chest x-ray showed vascular pulmonary congestion, lower extremity edema seen on examination, Recent echocardiogram showed ejection fraction of 60 to 65%, moderate to severe aortic stenosis Plan: Strict in and out, fluid restriction to 1200, continue with CRRT to remove fluids slowly goals to remove 2 - 2.5 L per day with close attention to the possibility of volume depletion. #A-fib with RVR/multiple atrial tachycardia rate controlled #Moderate pulmonary artery hypertension RVSP of 55 mmHg EKG showed irregularly irregular heartbeats, unidentified P waves. Cardiology team was consulted. Plan: Patient was started on diltiazem to 60 was increased to 329 p.o. daily, currently heart rate 80s to high 90s. Pulmonology #Acute hypoxic respiratory failure most likely secondary to pulmonary congestion, pneumonia, Antonia's granulomatosis flare, less likely severe asthma exacerbation #History of Antonia's granulomatosis #History of asthma on daily inhaler Chest x-ray on 15 March, mild opacity in both lung mason consistent with pneumonia, Multilocular cardiac contour, Mild to moderate vascular congestion. CT scan on 18 March 2025 showed extensive opacity in both lungs with 3 pulmonary nodules were found. Patient P ANCA was 1-20, antiproteinase 316.9 Patient was started on methylprednisolone, multiple courses of antibiotics, recently started on vancomycin and cefepime for MRSA and Pseudomonas coverage. Cocci even though it is less likely as the patient resides in [place] and had only come to visit her daughter who works as a mold release worker still pending Influenza, COVID, RSV are negative. Plan ? Keep patient on on BiPAP as needed, 3 times daily chest physical therapy, breathing treatment every 4 hours, continue methylprednisolone 40 mg IV twice daily ?Continue cefepime and vancomycin, follow-up on the cocci results. GI #History of peritoneal dialysis On examination no rigidity, no signs of discharge around the peritoneal catheter, no spikes of fever, as per daughter who is mold release worker she reported no cloudiness of her dialysate. Peritoneal fluid analysis was clear, peritoneal WBC was 3, peritoneal RBCs was 5, peritoneal LDH was less than 14. Plan Follow nephrology recommendations, monitor any signs of peritonitis, #History of 1 episode hematemesis #History of GERD Hematemesis could be secondary to epistaxis, she is on Protonix twice daily at home, hemoglobin stable since admission range between 9-8 most likely secondary to anemia of chronic disease. Plan ? Continue Protonix 40 mg twice daily, continue to monitor hemoglobin daily, consider consulting GI if patient hemoglobin drops below 7, transfuse blood as needed if hemoglobin below 7. #History of chronic constipation resolved Renal #ESRD on chronic peritoneal dialysis since 2021 Patient usually on peritoneal dialysis at home, she has some episodes of fluid overload in which she needed temporary hemodialysis. This time patient needed hemodialysis as her pulmonary congestion and her symptoms did not improve. Dr. Womack was consulted, hemodialysis was not tolerable by the patient. Patient was upgraded to the ICU for continuous renal replacement therapy. Plan ? CRRT with goal to remove 2 L over the next [address] Kessler supervisor liquid yeast was consulted will follow on the results. #Hyperkalemia Undergoing CRRT today, will monitor closely. Follow-up on the BMP at 9 PM today Hem-oncology #Chronic normocytic anemia Patient hemoglobin consistently between 9 and 8, normocytic most likely secondary to her ESRD. Has had 1 episode of hematemesis could be swallowed blood from her epistaxis as the patient has history of Antonia's granulomatosis. Received 10,000 units of Epogen by nephrology team Plan: Continue to monitor CBC daily. 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 She developed a flare 2019 in [place] was treated with rituximab upper her symptoms did not improve completely at that time however she was improving with peritoneal dialysis slowly. Plan: Obtain old medical records from her previous swedger and tax revenue officer in [place], continue methylprednisolone 60 mg twice daily, consider bronchial lavage for further confirmation of her flare and then use of IVIG or escalating her immunosuppression therapy. Consider testing for TB before escalating. ID #Acute hypoxic respiratory failure could be secondary to community-acquired pneumonia Patient has history of sick contact at home. Plan Continue antibiotics as above, follow-up on repeat culture and sensitivity, patient may need bronchial lavage Gram stain and culture. ID consultation, consider testing for TB. Hospital Maintenance: FEN: Renal diet DVT ppx: SCD GI ppx: Protonix IV lines: Central line Valdovinos: None Code status: Full code Dispo: ICU for CRRT - Patient's plan and care discussed with my attending, Dr. Anson Salcido MD Internal Medicine PGY-3 Attending Provider Attestation/Addendum Patient seen and examined with resident. Agree with above. In brief is an 84-year-old female who is being admitted to the ICU for CRRT. The patient has been in the hospital for several days since 09 March. She initially presented for shortness of breath. She was initially treated for pneumonia and asthma exacerbation with steroids and DuoNebs. She also has a history of end-stage renal disease on peritoneal dialysis. This has been transitioned to hemodialysis due to ineffective PD. She has a history of Antonia's granulomatosis in the past. On arrival serologies were sent off to evaluate for reactivity. The serologies are back today and are positive. There is a suspicion given her CT finding with pulmonary nodules that have progressed since December as well as her positive serologies for reactivation of her Antonia's granulomatosis. The patient's family is very reluctant for steroids. She does have some increased work of breathing however family is also reluctant for intubation. They do want intubation should the patient require it as a last ditch measure. The patient is on hemodialysis however not much fluid has been removed given that the family does not want much volume removed. At this point in time nephrology has acquiesced for CRRT. Patient's chest x-ray does appear worse with fluid overload. It would be beneficial to have additional volume removed. Yesterday the patient was trialed on 5 mg of albuterol, ipratropium, acetylcysteine with chest PT. She was examined pre and posttreatment. There was no significant change in her expiratory wheezes. It was felt that her wheezing is likely a cardiogenic wheeze due to pulmonary edema rather than reactive airways. She is being transferred to the ICU for CRRT and more volume removal in a slower fashion. Case has been discussed extensively with the family. The family believes that the patient has a active bacterial pneumonia and she is currently on vancomycin and cefepime. It is noted that she does have white count however has been on steroids. Her Pro-Joe which was checked several days ago is negative. Her fever curve is flat. Other than a white count there is no reason to suspect that the patient has a acute bacterial infection. At this point in time her chest CT and her chest x-ray do appear to be slightly more compatible with pulmonary edema and vascular congestion along with some pulmonary nodules that have progressed suspicious for reactivation of her Antonia's granulomatosis along with a minimal component of asthma and reactive airways. This was all discussed with family who are very involved. Case discussed with ICU team Discussed with nephrology Discussed with hospitalist team Labs, imaging and records reviewed Approximately 60 minutes required for evaluation, exam, review, intervention, discussion and formulation of plan of care for this unfortunate 84-year-old female with respiratory distress and volume overload at high risk for further ongoing decompensation along with heart failure, end-stage renal disease, aortic stenosis
[2025-03-19 18:52] LABS: Albumin, Serum 3.4 gm/dL (3.4-4.8); Anion Gap 13 (7-16); BUN/Creatinine Ratio 19 Ratio (12-20); Blood Urea Nitrogen 96 mg/dL (9-23); Calcium 7.7 mg/dL (8.3-10.6); Calcium (Corrected) 8.2 mg/dL (8.5-10.1); Carbon Dioxide 22.2 mMol/L (20.0-31.0); Chloride 95 mMol/L (98-107); Creatinine (Component) 5.0 mg/dL (0.6-1.3); Estimated Creatinine Clearance 6.3 mL/min (>60); Glucose 144 mg/dL (74-106); Osmolality,Calculated 293 (275-295); Phosphorous 8.1 mg/dL (2.4-5.1); Potassium 5.9 mMol/L (3.4-5.1); Sodium 130 mMol/L (136-145); eGFR 8 See Note
[2025-03-19] MEDS: SODIUM CHLORIDE RT SOL 0.9% 3 ML NEBU INH ×2 (19:00→22:09)
[2025-03-19 21:03] LABS: Lactate (Lactic Acid) 0.8 mMol/L (0.4-2.0)
[2025-03-19] MEDS: ATORVASTATIN CALCIUM 20 MG TABLET 40 MG PO (21:21)
[2025-03-19 21:28] LABS: Anion Gap 16 (7-16); BUN/Creatinine Ratio 20 Ratio (12-20); Blood Urea Nitrogen 100 mg/dL (9-23); Calcium 7.8 mg/dL (8.3-10.6); Carbon Dioxide 20.8 mMol/L (20.0-31.0); Chloride 94 mMol/L (98-107); Creatinine (Component) 5.0 mg/dL (0.6-1.3); Estimated Creatinine Clearance 6.3 mL/min (>60); Glucose 127 mg/dL (74-106); Osmolality,Calculated 295 (275-295); Potassium 6.0 mMol/L (3.4-5.1); Sodium 131 mMol/L (136-145); eGFR 8 See Note
--- NOTE | 2025-03-19 21:54 | PD.IMPROG ---
Documentation for date of: 03/19/25 Subjective Subjective Interval history: Patient in ICU No major improvement Her daughter and son have asked me if the patient can be transferred to a tertiary center I will speak with our business services assistant Exam Vital Signs Temp Pulse Resp BP Pulse Ox O2 Del Method O2 Flow Rate 97.8 F 83 31 H 120/52 L 95 High Flow Nasal Cannula 15 03/19/25 19:45 03/19/25 21:45 03/19/25 21:45 03/19/25 21:45 03/19/25 21:45 03/19/25 19:45 03/19/25 19:45 FiO2 28 03/19/25 19:45 Objective Labs 03/19/25 05:47 03/19/25 20:50 Labs: Laboratory Results - last 24 hr 03/11/25 03/19/25 03/19/25 17:59 05:47 08:33 WBC 19.7 H RBC 2.75 L Hgb 8.3 L Hct 23.6 L MCV 86 MCH 30.2 MCHC 35.2 RDW Std Deviation 48.8 H Plt Count 173 Neut % (Auto) 93 H Lymph % (Auto) 2 L [place] % (Auto) 3 Eos % (Auto) 0 Baso % (Auto) 0 Neut # (Auto) 18.3 H Lymph # (Auto) 0.3 L [place] # (Auto) 0.6 Eos # (Auto) 0.0 Baso # (Auto) 0.0 Immature Gran # (Auto) 0.38 H Absolute Nucleated RBC 0.03 H Immature Gran % 2 H Nucleated RBC % 0 Puncture Site Right Radial ABG pH 7.36 ABG pCO2 43 ABG pO2 66 L ABG HCO3 24 ABG O2 Saturation 91 ABG Base Excess -1 FiO2 30 Sodium 133 L Potassium 5.7 H D Chloride 94 L Carbon Dioxide 24.7 Anion Gap 14 BUN 84 H Creatinine 4.5 H* D Estim Creat Clear Calc 7.0 L eGFR 9 L* BUN/Creatinine Ratio 19 Glucose 136 H Calculated Osmolality 293 Lactic Acid Calcium 8.4 Corrected Calcium 8.7 Phosphorus 6.8 H Magnesium 1.9 Total Bilirubin 0.4 AST 37 H ALT 70 H Alkaline Phosphatase 53 Total Protein 5.8 Albumin 3.6 Globulin 2.2 L Albumin/Globulin Ratio 1.6 Random Vancomycin 20.0 ANCA Screen POSITIVE A c-ANCA Titer 1:20 H Anti-Proteinase 3 16.9 H p-ANCA Titer TNP Atypical p-ANCA Titer TNP Anti-Myeloperoxidase <1.0 03/19/25 03/19/25 18:25 20:50 WBC RBC Hgb Hct MCV MCH MCHC RDW Std Deviation Plt Count Neut % (Auto) Lymph % (Auto) [place] % (Auto) Eos % (Auto) Baso % (Auto) Neut # (Auto) Lymph # (Auto) [place] # (Auto) Eos # (Auto) Baso # (Auto) Immature Gran # (Auto) Absolute Nucleated RBC Immature Gran % Nucleated RBC % Puncture Site ABG pH ABG pCO2 ABG pO2 ABG HCO3 ABG O2 Saturation ABG Base Excess FiO2 Sodium 130 L 131 L Potassium 5.9 H 6.0 H Chloride 95 L 94 L Carbon Dioxide 22.2 20.8 Anion Gap 13 16 BUN 96 H 100 H Creatinine 5.0 H* D 5.0 H* Estim Creat Clear Calc 6.3 L 6.3 L eGFR 8 L* 8 L* BUN/Creatinine Ratio 19 20 Glucose 144 H 127 H Calculated Osmolality 293 295 Lactic Acid 0.8 Calcium 7.7 L 7.8 L Corrected Calcium 8.2 L Phosphorus 8.1 H Magnesium Total Bilirubin AST ALT Alkaline Phosphatase Total Protein Albumin 3.4 Globulin Albumin/Globulin Ratio Random Vancomycin ANCA Screen c-ANCA Titer Anti-Proteinase 3 p-ANCA Titer Atypical p-ANCA Titer Anti-Myeloperoxidase Impressions Impression: Hemoccult positive stool stable Renal failure Congestive heart failure Severe aortic stenosis Will discuss the case with cardiology ABG Interpretation ABG results: 03/09/25 03/09/25 03/10/25 07:50 18:22 09:05 ABG pH 7.45 ABG pCO2 39 ABG pO2 289 H ABG HCO3 27 H ABG O2 Saturation 101 H ABG Base Excess 2 VBG pH 7.39 7.49 VBG pCO2 49 37 D VBG pO2 70 H 68 H VBG Base Excess 4 H 5 H 03/11/25 03/12/25 03/16/25 10:09 09:44 03:09 ABG pH 7.40 7.41 ABG pCO2 44 46 ABG pO2 80 L D 97 ABG HCO3 27 H 29 H ABG O2 Saturation 95 98 ABG Base Excess 2 4 H VBG pH 7.45 VBG pCO2 40 VBG pO2 39 D VBG Base Excess 4 H 03/18/25 03/19/25 14:17 08:33 ABG pH 7.36 ABG pCO2 43 ABG pO2 66 L ABG HCO3 24 ABG O2 Saturation 91 ABG Base Excess -1 VBG pH 7.45 VBG pCO2 39 VBG pO2 59 H VBG Base Excess 3 Assessment & Plan A&P Narrative # FOBT positive in a patient who has severe aortic stenosis 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 Since she has hypoxic respiratory failure At least at this point I will not subject the patient to any invasive GI workup till the respiratory status and the volume overload is corrected The patient needs anticoagulation for some reason she cannot be fully anticoagulated as she is not bleeding away And if she does bleed at that consider invasive GI workup Other medical problems include # Acute hypoxic respiratory failure on high flow oxygen # Severe aortic stenosis moderate MR and TR # End-stage renal disease on hemodialysis Will follow the patient Thank you very much for the opportunity to participate in the care of this patient Time Spent With Patient Time: Total time spent is greater than 50% in coordination of care (as documented) at patient's floor/unit and/or counseling patient:
[2025-03-19 22:18] LABS: Albumin, Serum 3.4 gm/dL (3.4-4.8); Anion Gap 15 (7-16); BUN/Creatinine Ratio 19 Ratio (12-20); Blood Urea Nitrogen 94 mg/dL (9-23); Calcium 7.7 mg/dL (8.3-10.6); Calcium (Corrected) 8.2 mg/dL (8.5-10.1); Carbon Dioxide 21.0 mMol/L (20.0-31.0); Chloride 95 mMol/L (98-107); Creatinine (Component) 5.0 mg/dL (0.6-1.3); Estimated Creatinine Clearance 6.3 mL/min (>60); Glucose 125 mg/dL (74-106); Osmolality,Calculated 292 (275-295); Phosphorous 8.0 mg/dL (2.4-5.1); Potassium 6.0 mMol/L (3.4-5.1); Sodium 131 mMol/L (136-145); eGFR 8 See Note
[2025-03-19] MEDS: DEXTROSE 50%-WATER INJ 50 ML SYRINGE IVP (22:59)
[2025-03-19] MEDS: INSULIN HUM REGULAR 1 UNIT/0.01 ML (PER UNIT) 6 UNIT IV (22:59)
[2025-03-20] VITALS (98 sets, daily range): BP systolic 79–158; BP diastolic 43–93; PULSE 78–137; RESP 14–39; TEMP 36.1–37.2; O2SAT 89–100; BMI 26.0
[2025-03-20] MEDS: HEPARIN SOD INJ 1000 UNIT/ML VIAL 10 ML 3300 UNIT INDWELLCAT (02:32)
[2025-03-20] MEDS: SODIUM CHLORIDE RT SOL 0.9% 3 ML NEBU INH ×2 (03:05→18:42)
[2025-03-20] MEDS: ALBUTEROL RT 2.5 MG/0.5 ML NEBU 5 MG INH ×6 (03:05→23:00)
[2025-03-20] MEDS: IPRATROPIUM RT 0.5 MG/ 2.5 ML NEBU INH ×6 (03:05→23:00)
[2025-03-20 03:49] LABS: Basophils # (Auto) 0.0 Thou/mm3 (0.0-0.2); Basophils % (Auto) 0 % (0-2.5); Eosinophils # (Auto) 0.0 Thou/mm3 (0.0-0.5); Eosinophils % (Auto) 0 % (0-10); Hematocrit 23.2 % (36.0-46.0); Immature Granulocytes Auto 0.43 Thou/mm3 (0.00-0.00); Lymphocytes # (Auto) 0.2 Thou/mm3 (1.0-4.8); Lymphocytes % (Auto) 1 % (10-50); Mean Corpuscular HGB Conc 35.8 g/dl (31.0-37.0); Mean Corpuscular Hemoglobin 31.0 pg (25.0-35.0); Mean Corpuscular Volume 87 fL (80-100); Monocytes # (Auto) 0.7 Thou/mm3 (0.0-0.8); Monocytes % (Auto) 3 % (0-12); Neutrophils # (Auto) 19.2 Thou/mm3 (1.8-7.7); Neutrophils % (Auto) 94 % (37-80); Nucleated Red Blood Cell # 0.04 Thou/mm3 (0.00-0.00); Nucleated Red Blood Cell % 0 /100 WBC (0); Platelet Count 166 Thou/mm3 (140-440); RDW Standard Deviation 48.4 fL (36.4-46.3); Red Blood Count 2.68 Miln/mm3 (4.00-5.20); White Blood Count 20.6 Thou/mm3 (3.6-11.0)
[2025-03-20 03:55] LABS: Hemoglobin 8.3 g/dL (12.0-16.0)
[2025-03-20 04:02] LABS: Alanine Aminotransferase 67 U/L (10-49); Albumin, Serum 3.5 gm/dL (3.4-4.8); Albumin/Globulin Ratio 1.5 (1.2-2.2); Alkaline Phosphatase 53 U/L (46-116); Anion Gap 16 (7-16); Aspartate Amino Transferase 46 U/L (0-34); BUN/Creatinine Ratio 17 Ratio (12-20); Bilirubin,Total 0.3 mg/dL (0.3-1.2); Blood Urea Nitrogen 88 mg/dL (9-23); Calcium 7.9 mg/dL (8.3-10.6); Calcium (Corrected) 8.3 mg/dL (8.5-10.1); Carbon Dioxide 18.6 mMol/L (20.0-31.0); Chloride 95 mMol/L (98-107); Creatinine (Component) 5.3 mg/dL (0.6-1.3); Estimated Creatinine Clearance 6.0 mL/min (>60); Globulin 2.3 gm/dL (2.3-3.5); Glucose 116 mg/dL (74-106); Magnesium 1.9 mg/dL (1.6-2.6); Osmolality,Calculated 288 (275-295); Phosphorous 8.3 mg/dL (2.4-5.1); Sodium 130 mMol/L (136-145); Total Protein 5.8 gm/dL (5.7-8.2); Vancomycin,Random 14.6 mcg/mL; eGFR 8 See Note
[2025-03-20 04:04] LABS: Potassium 6.6 mMol/L (3.4-5.1)
--- NOTE | 2025-03-20 04:10 | EKG_ITS ---
[facility] Test Date: 2025-03-20 Pat Name: WHIT TITUS [facility]: [facility] Gender: Female Diver Pumper: KATY : [id number] Requested By: Pedro Salgado Order Number: [id number] Reading MD: Pedro Salgado Measurements Intervals [place] Rate: 92 P: 48 GA: 210 QRS: -53 QRSD: 137 T: 5 QT: 379 QTc: 469 Interpretive Statements SINUS RHYTHM WITH FIRST DEGREE AV BLOCK RIGHT BUNDLE BRANCH BLOCK LEFT ANTERIOR FASCICULAR BLOCK POSSIBLE LEFT VENTRICULAR HYPERTROPHY Compared to ECG 03/15/2025 02:19:19 First degree AV block now present Right bundle-branch block now present Sinus tachycardia no longer present Right ventricular hypertrophy no longer present Incomplete right bundle-branch block no longer present Myocardial infarct finding no longer present /[id number]
[2025-03-20] MEDS: DEXTROSE 50%-WATER INJ 50 ML SYRINGE 100 ML IVP (04:17)
[2025-03-20] MEDS: INSULIN HUM REGULAR 1 UNIT/0.01 ML (PER UNIT) 10 UNIT IV (04:20)
[2025-03-20] MEDS: CALCIUM GLUCONATE 10% INJ 1 GM/10 ML VIAL IV (04:35)
[2025-03-20] MEDS: guaiFENesin SYRUP 200 MG/10 ML UDC PO ×3 (06:24→21:33)
[2025-03-20] MEDS: METHIMAZOLE 5 MG TABLET PO ×3 (06:24→21:33)
[2025-03-20 06:50] LABS: Potassium 5.9 mMol/L (3.4-5.1)
[2025-03-20 07:22] LABS: Base Excess -7 (-3-3); HCO3 19 mEq/L (20-26); Inspired Oxygen, FIO2 28 %; O2 Saturation 95 % (91-98); PCO2 38 mmHg (32.0-48.0); PO2 80 mmHg (83-108); pH, Arterial 7.31 (7.35-7.45)
[2025-03-20 07:24] LABS: Allen Test Performed/OK; Puncture Site Right Radial
[2025-03-20] MEDS: ALBUTEROL/IPRATROPIUM (Duoneb) RT SOL 3 ML NEBU INH (07:34)
[2025-03-20 07:36] LABS: C-Reactive Protein 0.6 mg/dL (0.0-0.9)
[2025-03-20 07:40] LABS: Lactate (Lactic Acid) 2.2 mMol/L (0.4-2.0)
--- NOTE | 2025-03-20 07:42 | XR_ITS ---
Examination: AP chest single view Technique one AP portable upright chest single view Date and time: March 20, 2025 0748 hours Comparison March 18, 2025 INDICATIONS: Shortness of breath today. FINDINGS: Mild heart failure. Mild enlargement cardiac contour with prominent vascular congestion and perihilar edema Right internal jugular dialysis catheter tip satisfactory position IMPRESSION: Mild heart failure
[2025-03-20] MEDS: CEFEPIME INJ 1 GM in SODIUM CHLORIDE 0.9% (Popper) 50 ML IV (08:39)
--- NOTE | 2025-03-20 09:22 | ESPR_ITS ---
Documentation for date of: 03/20/25 Subjective Subjective Interval history: Overnight events: Patient had elevated potassium overnight with max potassium of 6.6, necessitating x2 treatment by ICU team. Patient was seen and examined at bedside. AM vitals and labs reviewed. WBC 20.6, H&H 8.3/23.2, sodium 130, potassium 5.9, chloride 95, bicarb 18.6, BUN 88, creatinine 5.3, GFR 8, corrected calcium 8.3, phosphorus 8.3. Patient completed their first CRRT session yesterday with a duration of 12 hours and 39 minutes, net fluid removed 2.5 L. During CRRT session, it was noted that the patient had a soft diastolic pressure ranging from 40-57 during treatment. Periodic desats to as low as 90% O2 noted overnight. Per nursing staff, family is hesitant to do another round of CRRT as they believe that the patient is very lethargic due to the treatment. Given today's a.m. labs, ICU team believes that clinically, the patient would highly benefit from further CRRT. Chest x-ray taken earlier today shows mild heart failure, mild enlargement of cardiac contour with prominent vascular congestion, and perihilar edema. During today's visit, the patient seemed slightly more alert, but has continued difficulty communicating and labored respirations on HFNC. The patient is able to follow all commands, and able to respond to yes or no questions, but is unable to speak responses due to respiratory status. The patient notes continued pain on breathing and shortness of breath. Review of systems otherwise negative except for what is mentioned above. Exam Vital Signs Temp Pulse Resp BP Pulse Ox O2 Del Method O2 Flow Rate 98.9 F 94 28 H 137/58 H 96 High Flow Nasal Cannula 03/20/25 08:01 03/20/25 08:01 03/20/25 08:01 03/20/25 08:01 03/20/25 08:01 03/20/25 08:01 03/20/25 08:01 FiO2 28 03/20/25 08:01 Narrative Exam Physical Exam: General: Alert, no acute distress. Skin: Warm, dry, intact. Head: Normocephalic, atraumatic. Cardiovascular: Tachycardic, regular rhythm, systolic murmur, +S1/S2. Respiratory: Short and shallow breaths on auscultation, respirations labored on HFNC, no crackles, no wheezing. Periodic congested sounding cough without mucus. Gastrointestinal: Soft, nontender, non-distended. No guarding or rebound tenderness. Extremities: 1+ edema over tibia and lateral buttock area bilaterally, no cyanosis, no clubbing. 2+ radial pulse bilaterally, 2+ pedal pulse bilaterally. Neuro: No focal deficits observed. Minimally conversant, moving all extremities. No overt cerebellar signs/incoordination. Objective Labs 03/22/25 05:50 03/22/25 05:50 Labs: Laboratory Results - last 24 hr 03/11/25 03/19/25 03/19/25 17:59 18:25 20:50 WBC RBC Hgb Hct MCV MCH MCHC RDW Std Deviation Plt Count Neut % (Auto) Lymph % (Auto) [place] % (Auto) Eos % (Auto) Baso % (Auto) Neut # (Auto) Lymph # (Auto) [place] # (Auto) Eos # (Auto) Baso # (Auto) Immature Gran # (Auto) Absolute Nucleated RBC Immature Gran % Nucleated RBC % ESR Puncture Site ABG pH ABG pCO2 ABG pO2 ABG HCO3 ABG O2 Saturation ABG Base Excess FiO2 Sodium 130 L 131 L Potassium 5.9 H 6.0 H Chloride 95 L 94 L Carbon Dioxide 22.2 20.8 Anion Gap 13 16 BUN 96 H 100 H Creatinine 5.0 H* D 5.0 H* Estim Creat Clear Calc 6.3 L 6.3 L eGFR 8 L* 8 L* BUN/Creatinine Ratio 19 20 Glucose 144 H 127 H Calculated Osmolality 293 295 Lactic Acid 0.8 Calcium 7.7 L 7.8 L Corrected Calcium 8.2 L Phosphorus 8.1 H Magnesium Total Bilirubin AST ALT Alkaline Phosphatase C-Reactive Prot, Quant Total Protein Albumin 3.4 Globulin Albumin/Globulin Ratio Random Vancomycin ANCA Screen POSITIVE A c-ANCA Titer 1:20 H Anti-Proteinase 3 16.9 H p-ANCA Titer TNP Atypical p-ANCA Titer TNP Anti-Myeloperoxidase <1.0 03/19/25 03/20/25 03/20/25 21:47 03:25 06:15 WBC 20.6 H RBC 2.68 L Hgb 8.3 L Hct 23.2 L MCV 87 MCH 31.0 MCHC 35.8 RDW Std Deviation 48.4 H Plt Count 166 Neut % (Auto) 94 H Lymph % (Auto) 1 L [place] % (Auto) 3 Eos % (Auto) 0 Baso % (Auto) 0 Neut # (Auto) 19.2 H Lymph # (Auto) 0.2 L [place] # (Auto) 0.7 Eos # (Auto) 0.0 Baso # (Auto) 0.0 Immature Gran # (Auto) 0.43 H Absolute Nucleated RBC 0.04 H Immature Gran % 2 H Nucleated RBC % 0 ESR Cancelled Puncture Site ABG pH ABG pCO2 ABG pO2 ABG HCO3 ABG O2 Saturation ABG Base Excess FiO2 Sodium 131 L 130 L Potassium 6.0 H 6.6 H* D 5.9 H D Chloride 95 L 95 L Carbon Dioxide 21.0 18.6 L Anion Gap 15 16 BUN 94 H 88 H Creatinine 5.0 H* 5.3 H* Estim Creat Clear Calc 6.3 L 6.0 L eGFR 8 L* 8 L* BUN/Creatinine Ratio 19 17 Glucose 125 H 116 H Calculated Osmolality 292 288 Lactic Acid Calcium 7.7 L 7.9 L Corrected Calcium 8.2 L 8.3 L Phosphorus 8.0 H 8.3 H Magnesium 1.9 Total Bilirubin 0.3 AST 46 H ALT 67 H Alkaline Phosphatase 53 C-Reactive Prot, Quant 0.6 Total Protein 5.8 Albumin 3.4 3.5 Globulin 2.3 Albumin/Globulin Ratio 1.5 Random Vancomycin 14.6 ANCA Screen c-ANCA Titer Anti-Proteinase 3 p-ANCA Titer Atypical p-ANCA Titer Anti-Myeloperoxidase 03/20/25 03/20/25 07:12 07:29 WBC RBC Hgb Hct MCV MCH MCHC RDW Std Deviation Plt Count Neut % (Auto) Lymph % (Auto) [place] % (Auto) Eos % (Auto) Baso % (Auto) Neut # (Auto) Lymph # (Auto) [place] # (Auto) Eos # (Auto) Baso # (Auto) Immature Gran # (Auto) Absolute Nucleated RBC Immature Gran % Nucleated RBC % ESR Puncture Site Right Radial ABG pH 7.31 L ABG pCO2 38 ABG pO2 80 L ABG HCO3 19 L ABG O2 Saturation 95 ABG Base Excess -7 L FiO2 28 Sodium Potassium Chloride Carbon Dioxide Anion Gap BUN Creatinine Estim Creat Clear Calc eGFR BUN/Creatinine Ratio Glucose Calculated Osmolality Lactic Acid 2.2 H Calcium Corrected Calcium Phosphorus Magnesium Total Bilirubin AST ALT Alkaline Phosphatase C-Reactive Prot, Quant Total Protein Albumin Globulin Albumin/Globulin Ratio Random Vancomycin ANCA Screen c-ANCA Titer Anti-Proteinase 3 p-ANCA Titer Atypical p-ANCA Titer Anti-Myeloperoxidase ABG Interpretation ABG results: 03/09/25 03/09/25 03/10/25 07:50 18:22 09:05 ABG pH 7.45 ABG pCO2 39 ABG pO2 289 H ABG HCO3 27 H ABG O2 Saturation 101 H ABG Base Excess 2 VBG pH 7.39 7.49 VBG pCO2 49 37 D VBG pO2 70 H 68 H VBG Base Excess 4 H 5 H 03/11/25 03/12/25 03/16/25 10:09 09:44 03:09 ABG pH 7.40 7.41 ABG pCO2 44 46 ABG pO2 80 L D 97 ABG HCO3 27 H 29 H ABG O2 Saturation 95 98 ABG Base Excess 2 4 H VBG pH 7.45 VBG pCO2 40 VBG pO2 39 D VBG Base Excess 4 H 03/18/25 03/19/25 03/20/25 14:17 08:33 07:12 ABG pH 7.36 7.31 L ABG pCO2 43 38 ABG pO2 66 L 80 L ABG HCO3 24 19 L ABG O2 Saturation 91 95 ABG Base Excess -1 -7 L VBG pH 7.45 VBG pCO2 39 VBG pO2 59 H VBG Base Excess 3 Quality Measures Quality Measures none Advance care planning discussed with:: patient Assessment & Plan Assessment Current Active Medications: Generic Name Dose Route Start Last Admin Trade Name Freq PRN Reason Stop Dose Admin Acetaminophen 650 mg 03/09/25 14:41 03/16/25 22:38 Acetaminophen 325 Mg Tablet PO 04/08/25 14:40 650 mg Q6H PRN Administration Mild Pain(1-3) or Fever >100.3 Albuterol 5 mg 03/18/25 15:00 03/20/25 06:23 Albuterol Rt 2.5 Mg/0.5 Ml Nebu INH 04/17/25 14:59 5 mg Q4HRRT SABRINA Administration Atorvastatin Calcium 40 mg 03/09/25 21:00 03/19/25 21:21 Atorvastatin Calcium 20 Mg Tablet PO 04/08/25 20:59 40 mg HS SABRINA Administration Dextrose 25 ml 03/12/25 08:16 Dextrose 50%-Water Inj 50 Ml Syringe IV 04/11/25 08:15 Q15MIN PRN BG 50-70 responsive npo pt Dextrose 50 ml 03/12/25 08:16 Dextrose 50%-Water Inj 50 Ml Syringe IV 04/11/25 08:15 Q15MIN PRN BG <50 OR BG <70 & pt unresponsive Diltiazem HCl 360 mg 03/18/25 09:00 03/19/25 09:07 Diltiazem Cd 120 Mg Capcr PO 04/17/25 08:59 360 mg QDAY SABRINA Administration Glucagon 1 mg 03/12/25 08:16 Glucagon Inj 1 Mg Vial IM Q15MIN PRN BG <70, and no IV access Guaifenesin 200 mg 03/16/25 14:00 03/20/25 06:24 Guaifenesin Syrup 200 Mg/10 Ml Udc PO 04/15/25 13:59 200 mg TID SABRINA Administration Protocol Heparin Sodium (Porcine) 3,300 unit 03/15/25 15:49 03/20/25 02:32 Heparin Sod Inj 1000 Unit/Ml Vial 10 Ml INDWELLCAT 03/29/25 15:48 3,300 unit X1 PRN Administration DIALYSIS Cefepime HCl 1 gm/ Sodium 50 mls @ 100 mls/hr 03/18/25 16:12 03/20/25 08:39 Chloride IV 03/25/25 16:11 100 mls/hr QDAY SABRINA Administration Vancomycin/Sodium Chloride 100 mls @ 120 mls/hr 03/20/25 10:00 Vancomycin/Ns 500 Mg Ivpb IV 03/20/25 10:49 X1 ONE Insulin Human Lispro 0 unit 03/12/25 11:30 03/20/25 08:23 Insulin Lispro (Admelog) 1 Unit/0.01 Ml Unit SC 04/11/25 11:29 Not Given AC SABRINA Protocol Ipratropium [place] 0.5 mg 03/10/25 15:00 03/20/25 06:24 Ipratropium Rt 0.5 Mg/ 2.5 Ml Nebu INH 04/09/25 14:59 0.5 mg Q4HRRT SABRINA Administration Lactulose 60 gm 03/17/25 10:07 Lactulose Syrup 20 Gm/30 Ml Udc PO 04/15/25 05:59 TID PRN constipation Protocol Melatonin 3 mg 03/09/25 23:18 03/15/25 18:33 Melatonin 3 Mg Tablet PO 04/09/25 20:59 3 mg HS PRN Administration insomnia Methimazole 5 mg 03/15/25 08:45 03/20/25 06:24 Methimazole 5 Mg Tablet PO 04/14/25 08:44 5 mg TID SABRINA Administration Methylprednisolone Sodium Succinate 40 mg 03/18/25 21:00 03/20/25 08:38 Methylprednisolone Sod Succ 40 Mg Vial IVP 03/25/25 20:59 40 mg BID SABRINA Administration Ondansetron HCl 4 mg 03/09/25 14:41 Ondansetron Inj 2 Mg/Ml Inj 2 Ml IVP 04/08/25 14:40 Q6H PRN NAUSEA OR VOMITING Protocol Pantoprazole Sodium 40 mg 03/17/25 03:00 03/20/25 08:39 Pantoprazole Inj 40 Mg Vial IVP 04/16/25 02:59 40 mg BID SABRINA Administration Breztri (Budesonide, 2 ea 03/13/25 12:00 03/19/25 20:00 Glycopyrrolate And INH 04/12/25 11:59 Not Given Formoterol) BID SABRINA Pharmacy Consult 1 each 03/18/25 16:15 Vancomycin Pharmacy To Dose 1 Each Each IV 04/17/25 16:14 QDAY PRN CONSULT Pharmacy Consult 1 each 03/18/25 16:09 Pharmacy Renal Dose Adjustment 1 Ea XX 04/17/25 16:08 PRN PRN CONSULT Sodium Chloride 3 ml 03/11/25 16:26 03/20/25 03:05 Sodium Chloride Rt Annika 0.9% 3 Ml Nebu INH 04/10/25 16:25 3 ml PRN PRN Administration SOLN Trazodone HCl 25 mg 03/18/25 13:50 03/18/25 21:31 Trazodone Hcl 50 Mg Tablet PO 04/16/25 22:09 25 mg HS PRN Administration insomnia Protocol Plan Mrs. 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 Nephrology was consulted for management of her peritoneal dialysis. Due to concerns of PNA and inadequate HD, patient pending transfer to ICU on 03/19 for additional respiratory support/monitoring and CRRT. #ESRD on Peritoneal Dialysis #ESRD 2/2 Donna's Granulomatosis #Fluid overload status #Anemia #Hyperkalemia, hyperphosphatemia - Discontinued nightly peritoneal dialysis 03/15. - Peritoneal dialysis was not sufficient in removing adequate volume. - Permanent dialysis catheter placed 03/15. - Hemodialysis performed 03/15, 03/16, 03/17 - CRRT started on 03/19 for continued respiratory concerns even with HD. - CRRT performed 03/19 for 12hrs - Agree for second CRRT session UF goal 2L today (03/20) given potassium 6.6 prior to intervention and borderline hyperkalemic emergency of 5.9 on 03/20 a.m. labs. - Procrit 10,000 units once via subQ ordered for anemia. - Will monitor H&H, recommend additional Procrit if no improvement over next several days. - Recommend Sevelamer powder 800mg TID for ongoing hyperphosphatemia on CRRT - Continue to monitor renal function. - Avoid IV hydration given past history of fluid overload and CHF. - Avoid nephrotoxic drugs and renally adjust medications. - Patient to follow up with outpatient rn heart Dr. Leo for dialysis once discharged. - Nephrology will continue to follow. Patient was discussed with the Nephrology attending, Dr. Amezcua. Thank you for allowing us to participate in the care of this patient. Rogelio Asher, PGY-1 Attending Provider Attestation/Addendum with assessment and plan and finding of resident. Seen and examined. Labs are reviewed Temo Amezcua MD
[2025-03-20] MEDS: BREZTRI 2 EA INH (09:32)
[2025-03-20] MEDS: DILTIAZEM CD 120 MG CAPCR 240 MG PO (10:20)
[2025-03-20 10:37] LABS: Reflex Lactate? Y
--- NOTE | 2025-03-20 10:49 | PD.RESHP ---
Documentation for date of: 03/20/25 [facility] History of Present Illness History of present illness: Overnight events: Patient had elevated potassium overnight with max potassium of 6.6, necessitating x2 treatment by ICU team. Patient was seen and examined at bedside. AM vitals and labs reviewed. WBC 20.6, H&H 8.3/23.2, sodium 130, potassium 5.9, chloride 95, bicarb 18.6, BUN 88, creatinine 5.3, GFR 8, corrected calcium 8.3, phosphorus 8.3. Patient completed their first CRRT session yesterday with a duration of 12 hours and 39 minutes, net fluid removed 2.5 L. During CRRT session, it was noted that the patient had a soft diastolic pressure ranging from 40-57 during treatment. Periodic desats to as low as 90% O2 noted overnight. Per nursing staff, family is hesitant to do another round of CRRT as they believe that the patient is very lethargic due to the treatment. Given today's a.m. labs, ICU team believes that clinically, the patient would highly benefit from further CRRT. Chest x-ray taken earlier today shows mild heart failure, mild enlargement of cardiac contour with prominent vascular congestion, and perihilar edema. During today's visit, the patient seemed slightly more alert, but has continued difficulty communicating and labored respirations on HFNC. The patient is able to follow all commands, and able to respond to yes or no questions, but is unable to speak responses due to respiratory status. The patient notes continued pain on breathing and shortness of breath. Review of systems otherwise negative except for what is mentioned above. Review of Systems Review of Systems Narrative Review of Systems: [id number] Constitutional Constitutional: Reports daytime sleepiness, Reports difficulty sleeping and Reports excessive sweating ([id number]) Endocrine Endocrine: Reports excessive sweating ([id number]) Past Medical History Past Medical History NEUROLOGIC: Positive Neurological Disorders and Cerebrovascular Accident CARDIAC: Positive Cardiac Disorders, Atrial Fibrillation, Hypercholesterolemia, Congestive Heart Failure and Edema RESPIRATORY: Positive Respiratory Disorders, Asthma, Cough and Wheezing; Negative Chronic Obstructive Pulmonary Disease (COPD) GASTROINTESTINAL: Positive Gastrointestinal Disorders and Gastroesophageal Reflux Disease GENITOURINARY: Positive Genitourinary Disorders, Chronic Kidney Disease, Renal Disease and Dialysis (PERITONEAL DIALYSIS) REPRODUCTIVE: Positive Previous Pregnancies MUSCULOSKELETAL: Positive Musculoskeletal Disorders and Osteoporosis ENT: Positive Cataracts ENDOCRINE: Negative Diabetes Mellitus Type 1 or Diabetes Mellitus Type 2 HEMATOLOGIC: Positive Anemia; Negative Sickle Cell Disease OTHER HISTORY: Positive Hospitalization, Shingles and Chicken Pox; Negative Autoimmune Disease Family History FAMILY HISTORY: Positive Family Respiratory Disorders, Family Cardiac Disorders, Family Cancer and Family Surgery; Negative Family Psychiatric Problems, Family Gastrointestinal Problems or Family Anesthesia Reaction Surgical History OTHER SURGICAL HX: As in the history of present illness Social History SMOKING STATUS: Never smoker SUBSTANCE USE: does not use Past Medical History Comments PMH COMMENT: PMH: Positive for heart failure preserved ejection fraction, EF of 60 to 65%, diastolic dysfunction, moderate pulmonary arterial hypertension, moderate to severe aortic stenosis V-max 3.8, 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 Exam Vital Signs Temp Pulse Resp BP Pulse Ox O2 Del Method O2 Flow Rate 98.9 F 94 24 H 129/47 L 100 High Flow Nasal Cannula 03/20/25 08:01 03/20/25 10:23 03/20/25 10:23 03/20/25 10:20 03/20/25 10:23 03/20/25 08:01 03/20/25 10:23 FiO2 28 03/20/25 10:23 Results: Labs 03/20/25 03:25 03/20/25 06:15 Labs: Short CBC 03/20/25 Range/Units 03:25 WBC 20.6 H (3.6-11.0) Thou/mm3 Hgb 8.3 L (12.0-16.0) g/dL Hct 23.2 L (36.0-46.0) % Plt Count 166 (140-440) Thou/mm3 BMP 03/19/25 03/19/25 03/19/25 18:25 20:50 21:47 Sodium 130 L 131 L 131 L Potassium 5.9 H 6.0 H 6.0 H Chloride 95 L 94 L 95 L Carbon Dioxide 22.2 20.8 21.0 BUN 96 H 100 H 94 H Creatinine 5.0 H* D 5.0 H* 5.0 H* Glucose 144 H 127 H 125 H Calcium 7.7 L 7.8 L 7.7 L 03/20/25 03/20/25 03:25 06:15 Sodium 130 L Potassium 6.6 H* D 5.9 H D Chloride 95 L Carbon Dioxide 18.6 L BUN 88 H Creatinine 5.3 H* Glucose 116 H Calcium 7.9 L Liver Function 03/19/25 03/19/25 03/20/25 Range/Units 18:25 21:47 03:25 Total Bilirubin 0.3 (0.3-1.2) mg/dL AST 46 H (0-34) U/L ALT 67 H (10-49) U/L Alkaline Phosphatase 53 (46-116) U/L Albumin 3.4 3.4 3.5 (3.4-4.8) gm/dL ABG Interpretation ABG results: 03/09/25 03/09/25 03/10/25 07:50 18:22 09:05 ABG pH 7.45 ABG pCO2 39 ABG pO2 289 H ABG HCO3 27 H ABG O2 Saturation 101 H ABG Base Excess 2 VBG pH 7.39 7.49 VBG pCO2 49 37 D VBG pO2 70 H 68 H VBG Base Excess 4 H 5 H 03/11/25 03/12/25 03/16/25 10:09 09:44 03:09 ABG pH 7.40 7.41 ABG pCO2 44 46 ABG pO2 80 L D 97 ABG HCO3 27 H 29 H ABG O2 Saturation 95 98 ABG Base Excess 2 4 H VBG pH 7.45 VBG pCO2 40 VBG pO2 39 D VBG Base Excess 4 H 03/18/25 03/19/25 03/20/25 14:17 08:33 07:12 ABG pH 7.36 7.31 L ABG pCO2 43 38 ABG pO2 66 L 80 L ABG HCO3 24 19 L ABG O2 Saturation 91 95 ABG Base Excess -1 -7 L VBG pH 7.45 VBG pCO2 39 VBG pO2 59 H VBG Base Excess 3 Quality Measures Quality Measures none Medications Home Medications and Allergies Home Medications ?Medication ?Instructions ?Recorded ?Confirmed ?Type atorvastatin 40 mg tablet 40 mg PO QDAY 08/15/19 03/11/25 History acetaminophen 325 mg tablet 650 mg PO Q6H PRN fever or pain 03/11/25 03/11/25 History (Tactinal) diltiazem HCl 240 mg 240 mg PO DAILY 03/11/25 03/11/25 History capsule,extended release 24 hr Allergies Allergy/AdvReac Type Severity Reaction Status Date / Time shrimp Allergy Severe Wheezing Verified 01/01/25 10:01 NSAIDS (Non-Steroidal Allergy Intermediate Swelling Verified 01/01/25 10:01 Anti-Inflamma Penicillins Allergy Intermediate Rash Verified 01/01/25 10:01 Visit Medications Acetaminophen (Acetaminophen 325 Mg Tablet) 650 mg PO Q6H PRN PRN Reason: Mild Pain(1-3) or Fever >100.3 Stop: 04/08/25 14:40 Last Admin: 03/16/25 22:38 Dose: 650 mg Albuterol (Albuterol Rt 2.5 Mg/0.5 Ml Nebu) 5 mg INH Q4HRRT [facility] Stop: 04/17/25 14:59 Last Admin: 03/20/25 10:23 Dose: 5 mg Atorvastatin Calcium (Atorvastatin Calcium 20 Mg Tablet) 40 mg PO HS [facility] Stop: 04/08/25 20:59 Last Admin: 03/19/25 21:21 Dose: 40 mg Dextrose (Dextrose 50%-Water Inj 50 Ml Syringe) 25 ml IV Q15MIN PRN PRN Reason: BG 50-70 responsive npo pt Stop: 04/11/25 08:15 Dextrose (Dextrose 50%-Water Inj 50 Ml Syringe) 50 ml IV Q15MIN PRN PRN Reason: BG <50 OR BG <70 & pt unresponsive Stop: 04/11/25 08:15 Diltiazem HCl (Diltiazem Cd 120 Mg Capcr) 240 mg PO QDAY [facility] Stop: 04/19/25 10:29 Last Admin: 03/20/25 10:20 Dose: 240 mg Glucagon (Glucagon Inj 1 Mg Vial) 1 mg IM Q15MIN PRN PRN Reason: BG <70, and no IV access Guaifenesin (Guaifenesin Syrup 200 Mg/10 Ml Udc) 200 mg PO TID [facility]; Protocol Stop: 04/15/25 13:59 Last Admin: 03/20/25 06:24 Dose: 200 mg Heparin Sodium (Porcine) (Heparin Sod Inj 1000 Unit/Ml Vial 10 Ml) 3,300 unit INDWELLCAT X1 PRN PRN Reason: DIALYSIS Stop: 03/29/25 15:48 Last Admin: 03/20/25 02:32 Dose: 3,300 unit Cefepime HCl 1 gm/ Sodium (Chloride) 50 mls @ 100 mls/hr IV QDAY [facility] Stop: 03/25/25 16:11 Last Admin: 03/20/25 08:39 Dose: 100 mls/hr Insulin Human Lispro (Insulin Lispro (Admelog) 1 Unit/0.01 Ml Unit) 0 unit SC AC [facility]; Protocol Stop: 04/11/25 11:29 Last Admin: 03/20/25 08:23 Dose: Not Given Ipratropium Wilmer (Ipratropium Rt 0.5 Mg/ 2.5 Ml Nebu) 0.5 mg INH Q4HRRT [facility] Stop: 04/09/25 14:59 Last Admin: 03/20/25 10:23 Dose: 0.5 mg Lactulose (Lactulose Syrup 20 Gm/30 Ml Udc) 60 gm PO TID PRN; Protocol PRN Reason: constipation Stop: 04/15/25 05:59 Melatonin (Melatonin 3 Mg Tablet) 3 mg PO HS PRN PRN Reason: insomnia Stop: 04/09/25 20:59 Last Admin: 03/15/25 18:33 Dose: 3 mg Methimazole (Methimazole 5 Mg Tablet) 5 mg PO TID [facility] Stop: 04/14/25 08:44 Last Admin: 03/20/25 06:24 Dose: 5 mg Methylprednisolone Sodium Succinate (Methylprednisolone Sod Succ 40 Mg Vial) 40 mg IVP BID [facility] Stop: 03/25/25 20:59 Last Admin: 03/20/25 08:38 Dose: 40 mg Ondansetron HCl (Ondansetron Inj 2 Mg/Ml Inj 2 Ml) 4 mg IVP Q6H PRN; Protocol PRN Reason: NAUSEA OR VOMITING Stop: 04/08/25 14:40 Pantoprazole Sodium (Pantoprazole Inj 40 Mg Vial) 40 mg IVP BID [facility] Stop: 04/16/25 02:59 Last Admin: 03/20/25 08:39 Dose: 40 mg Breztri (Budesonide, Glycopyrrolate And Formoterol) 2 ea INH BID [facility] Stop: 04/12/25 11:59 Last Admin: 03/19/25 20:00 Dose: Not Given Pharmacy Consult (Vancomycin Pharmacy To Dose 1 Each Each) 1 each IV QDAY PRN PRN Reason: CONSULT Stop: 04/17/25 16:14 Pharmacy Consult (Pharmacy Renal Dose Adjustment 1 Ea) 1 each XX PRN PRN PRN Reason: CONSULT Stop: 04/17/25 16:08 Sodium Chloride (Sodium Chloride Rt Annika 0.9% 3 Ml Nebu) 3 ml INH PRN PRN PRN Reason: SOLN Stop: 04/10/25 16:25 Last Admin: 03/20/25 03:05 Dose: 3 ml Trazodone HCl (Trazodone Hcl 50 Mg Tablet) 25 mg PO HS PRN; Protocol PRN Reason: insomnia Stop: 04/16/25 22:09 Last Admin: 03/18/25 21:31 Dose: 25 mg Discontinued Medications Hydrocodone Bitart/Acetaminophen (Hydrocodone/Apap 5/325 Tablet) 1 tab PO Q4HR PRN PRN Reason: PAIN SCALE 4-10(Mod-Sev Stop: 03/14/25 14:40 Acetylcysteine (Acetylcysteine Rt Annika 10% 4 Ml Nebu) 3 ml INH Q4HRRT ONE Stop: 03/18/25 10:32 Last Admin: 03/18/25 10:48 Dose: 3 ml Albuterol (Albuterol Rt 2.5 Mg/3 Ml Nebu) 5 mg INH X1 ONE Stop: 03/09/25 07:47 Last Admin: 03/09/25 08:32 Dose: 5 mg Albuterol (Albuterol Rt 2.5 Mg/0.5 Ml Nebu) 15 mg INH X1 ONE Stop: 03/11/25 10:23 Last Admin: 03/11/25 10:35 Dose: 15 mg Albuterol (Albuterol Rt 2.5 Mg/0.5 Ml Nebu) 5 mg INH Q6HRRT [facility] Stop: 04/10/25 18:59 Last Admin: 03/11/25 21:15 Dose: Not Given Albuterol (Albuterol Rt 2.5 Mg/0.5 Ml Nebu) 20 mg INH X1 ONE Stop: 03/11/25 16:27 Last Admin: 03/16/25 07:14 Dose: Not Given Albuterol (Albuterol Rt 2.5 Mg/0.5 Ml Nebu) 2.5 mg INH Q4HRRT [facility] Stop: 04/17/25 10:59 Last Admin: 03/18/25 10:47 Dose: 2.5 mg Albuterol (Albuterol Rt 2.5 Mg/0.5 Ml Nebu) 5 mg INH Q4HRRT [facility] Stop: 04/17/25 10:59 Albuterol/Ipratropium (Albuterol/Ipratropium (Duoneb) Rt Annika 3 Ml Nebu) 3 ml INH Q2HR PRN PRN Reason: SHORTNESS OF BREATH OR WHEEZE Stop: 04/15/25 17:11 Albuterol/Ipratropium (Albuterol/Ipratropium (Duoneb) Rt Annika 3 Ml Nebu) 3 ml INH Q2HR ONE Stop: 03/18/25 10:31 Last Admin: 03/18/25 10:47 Dose: 3 ml Albuterol/Ipratropium (Albuterol/Ipratropium (Duoneb) Rt Annika 3 Ml Nebu) 3 ml INH Q4HRRT [facility] Stop: 04/18/25 18:59 Albuterol/Ipratropium (Albuterol/Ipratropium (Duoneb) Rt Annika 3 Ml Nebu) 3 ml INH X1 ONE Stop: 03/20/25 06:44 Last Admin: 03/20/25 07:34 Dose: 3 ml Budesonide (Budesonide Rt 0.5 Mg/2 Ml Nebu) 1 mg INH BIDRT [facility] Stop: 04/10/25 09:59 Last Admin: 03/14/25 06:11 Dose: 1 mg Calcium Gluconate (Calcium Gluconate 10% Inj 1 Gm/10 Ml Vial) 1 gm IV X1 ONE Stop: 03/20/25 04:11 Last Admin: 03/20/25 04:35 Dose: 1 gm Clopidogrel Bisulfate (Clopidogrel Bisulfate 75 Mg Tablet) 75 mg PO QDAY [facility] Stop: 04/09/25 08:59 Last Admin: 03/14/25 09:17 Dose: 75 mg Dextrose (Dextrose 50%-Water Inj 50 Ml Syringe) 50 ml IVP X1 ONE Stop: 03/19/25 22:34 Last Admin: 03/19/25 22:59 Dose: 50 ml Dextrose (Dextrose 50%-Water Inj 50 Ml Syringe) 100 ml IVP X1 ONE Stop: 03/20/25 04:08 Last Admin: 03/20/25 04:17 Dose: 100 ml Diltiazem HCl (Diltiazem Cd 120 Mg Capcr) 240 mg PO X1 ONE Stop: 03/09/25 07:47 Last Admin: 03/09/25 09:41 Dose: 240 mg Diltiazem HCl (Diltiazem Cd 120 Mg Capcr) 240 mg PO QDAY [facility] Stop: 04/09/25 08:59 Last Admin: 03/17/25 12:55 Dose: Not Given Diltiazem HCl (Diltiazem Cd 120 Mg Capcr) 120 mg PO X1 ONE Stop: 03/17/25 10:11 Last Admin: 03/17/25 12:46 Dose: 120 mg Diltiazem HCl (Diltiazem Cd 120 Mg Capcr) 360 mg PO QDAY [facility] Stop: 04/17/25 08:59 Last Admin: 03/19/25 09:07 Dose: 360 mg Diltiazem HCl (Diltiazem Cd 120 Mg Capcr) 240 mg PO X1 ONE Stop: 03/17/25 15:27 Last Admin: 03/17/25 15:35 Dose: 240 mg Diphenhydramine HCl (Diphenhydramine Inj 50 Mg/Ml Vial) 12.5 mg IVP X1 ONE Stop: 03/09/25 16:25 Last Admin: 03/09/25 16:49 Dose: 12.5 mg Docusate Sodium (Docusate Sod 100 Mg Capsule) 200 mg PO QDAY [facility]; Protocol Stop: 04/14/25 08:59 Last Admin: 03/18/25 08:54 Dose: 200 mg Epoetin Andrew (Epoetin Andrew-Epbx Inj 2,000 Unit/Ml Vial (Esrd)) 1,000 unit SC X1 ONE Stop: 03/19/25 11:09 Last Admin: 03/19/25 14:30 Dose: Not Given Epoetin Andrew (Epoetin Andrew-Epbx Inj 10,000 Unit/Ml Vial (Esrd)) 10,000 unit SC X1 ONE Stop: 03/19/25 11:09 Last Admin: 03/19/25 14:27 Dose: 10,000 unit Famotidine (Famotidine Inj 10 Mg/Ml Vial 2 Ml) 20 mg IVP X1 ONE Stop: 03/09/25 07:47 Last Admin: 03/09/25 08:15 Dose: 20 mg Fentanyl Citrate (Fentanyl Cit Inj 50 Mcg/Ml Amp 2ml) 37.5 mcg IVP X1 ONE Stop: 03/15/25 14:09 Last Admin: 03/15/25 14:08 Dose: 37.5 mcg Gabapentin (Gabapentin 100 Mg Capsule) 100 mg PO BID [facility] Stop: 04/10/25 12:14 Last Admin: 03/12/25 11:28 Dose: Not Given Gabapentin (Gabapentin 100 Mg Capsule) 100 mg PO X1 ONE Stop: 03/15/25 18:56 Last Admin: 03/15/25 21:47 Dose: 100 mg Gabapentin (Gabapentin 100 Mg Capsule) 100 mg PO HS [facility] Stop: 04/16/25 21:29 Gabapentin (Gabapentin 100 Mg Capsule) 100 mg PO HS [facility] Stop: 04/16/25 19:59 Glycerin (Glycerin, Adult 1 Ea Supp) 1 each MD X1 ONE Stop: 03/15/25 18:46 Last Admin: 03/15/25 21:19 Dose: 1 each Guaifenesin (Guaifenesin Syrup 200 Mg/10 Ml Udc) 100 mg PO X1 ONE; Protocol Stop: 03/16/25 03:29 Last Admin: 03/16/25 04:08 Dose: 100 mg Heparin Sodium (Beef Lung) (Heparin Sod Lock Syr 100 Unit/Ml) 500 unit STFIELD X1 ONE Stop: 03/15/25 14:09 Last Admin: 03/15/25 14:10 Dose: 500 unit Heparin Sodium (Porcine) (Heparin Sod Inj 5000 Unit/Ml Vial) 5,000 unit SC BID [facility] Stop: 03/23/25 20:59 Last Admin: 03/14/25 21:08 Dose: 5,000 unit Hydroxyzine HCl (Hydroxyzine Hcl 25 Mg Tablet) 25 mg PO HS [facility] Stop: 04/08/25 20:59 Last Admin: 03/12/25 21:23 Dose: Not Given Sodium Chloride (Ns) 500 mls @ 999 mls/hr IV .Q31M ONE Stop: 03/09/25 08:16 Last Infusion: 03/09/25 08:19 Dose: 0 mls/hr Magnesium Sulfate (Magnesium Sulfate Ivpb) 2 gm in 50 mls @ 25 mls/hr IV X1 ONE Stop: 03/09/25 16:48 Last Infusion: 03/09/25 16:52 Dose: Infused Magnesium Sulfate (Magnesium Sulfate Ivpb) 2 gm in 50 mls @ 25 mls/hr IV X1 ONE Stop: 03/09/25 20:37 Last Admin: 03/09/25 19:17 Dose: 25 mls/hr Azithromycin 500 mg/ Sodium (Chloride) 250 mls @ 250 mls/hr IV QDAY [facility] Stop: 03/12/25 08:59 Last Admin: 03/11/25 09:42 Dose: 250 mls/hr Ceftriaxone Sodium/Dextrose (Rocephin/D5w 1gm Iv Premix) 1 gm in 50 mls @ 100 mls/hr IV QDAY [facility] Stop: 03/17/25 07:59 Last Admin: 03/11/25 09:24 Dose: 100 mls/hr Magnesium Sulfate (Magnesium Sulfate Ivpb) 2 gm in 50 mls @ 25 mls/hr IV X1 ONE Stop: 03/11/25 12:16 Last Admin: 03/11/25 11:13 Dose: 25 mls/hr Magnesium Sulfate (Magnesium Sulfate Ivpb) 2 gm in 50 mls @ 150 mls/hr IV X1 ONE Stop: 03/11/25 11:49 Last Admin: 03/11/25 11:24 Dose: 150 mls/hr Magnesium Sulfate (Magnesium Sulfate Ivpb) 2 gm in 50 mls @ 25 mls/hr IV X1 ONE Stop: 03/14/25 18:14 Last Admin: 03/14/25 17:42 Dose: 25 mls/hr Albumin Human (Albuminar-25 Ivpb) 25 gm in 100 mls @ 100 mls/min IV PRN PRN PRN Reason: DIALYSIS Stop: 03/18/25 15:48 Last Infusion: 03/19/25 15:08 Dose: Infused Vancomycin/Sodium Chloride (Vancomycin/Ns 1 Gm Ivpb) 200 mls @ 120 mls/hr IV X1 ONE Stop: 03/18/25 18:39 Last Infusion: 03/19/25 15:08 Dose: Infused Vancomycin/Sodium Chloride (Vancomycin/Ns 500 Mg Ivpb) 100 mls @ 120 mls/hr IV X1 ONE Stop: 03/20/25 10:49 Insulin Human Regular (Insulin Hum Regular 1 Unit/0.01 Ml (Per Unit)) 5.9 unit 0.1 unit/kg (5.9 unit) IV X1 ONE Stop: 03/19/25 22:34 Last Admin: 03/20/25 01:33 Dose: Not Given Insulin Human Regular (Insulin Hum Regular 1 Unit/0.01 Ml (Per Unit)) 6 unit IV X1 ONE Stop: 03/19/25 22:34 Last Admin: 03/19/25 22:59 Dose: 6 unit Insulin Human Regular (Insulin Hum Regular 1 Unit/0.01 Ml (Per Unit)) 10 unit IV X1 ONE Stop: 03/20/25 04:08 Last Admin: 03/20/25 04:20 Dose: 10 unit Ipratropium Wilmer (Ipratropium Rt 0.5 Mg/ 2.5 Ml Nebu) 0.5 mg INH Q6HR PRN PRN Reason: SHORTNESS OF BREATH Stop: 04/08/25 16:23 Last Admin: 03/09/25 18:09 Dose: 0.5 mg Ipratropium Wilmer (Ipratropium Rt 0.5 Mg/ 2.5 Ml Nebu) 0.5 mg INH Q6HR [facility] Stop: 04/09/25 00:00 Ipratropium Wilmer (Ipratropium Rt 0.5 Mg/ 2.5 Ml Nebu) 0.5 mg INH Q6HRRT [facility] Stop: 04/09/25 00:59 Last Admin: 03/10/25 06:15 Dose: 0.5 mg Ipratropium Wilmer (Ipratropium Rt 0.5 Mg/ 2.5 Ml Nebu) 0.5 mg INH X1 ONE Stop: 03/10/25 11:57 Last Admin: 03/10/25 12:34 Dose: 0.5 mg Ipratropium Wilmer (Ipratropium Rt 0.5 Mg/ 2.5 Ml Nebu) 0.5 mg INH X1 ONE Stop: 03/11/25 09:52 Last Admin: 03/11/25 10:35 Dose: 0.5 mg Lactulose (Lactulose Syrup 20 Gm/30 Ml Udc) 10 gm PO QDAY [facility]; Protocol Stop: 04/13/25 08:59 Last Admin: 03/14/25 09:16 Dose: 10 gm Lactulose (Lactulose Syrup 20 Gm/30 Ml Udc) 20 gm PO BID [facility]; Protocol Stop: 04/14/25 08:59 Last Admin: 03/16/25 03:13 Dose: 20 gm Lactulose (Lactulose Syrup 20 Gm/30 Ml Udc) 20 gm PO TID [facility]; Protocol Stop: 04/15/25 05:59 Last Admin: 03/16/25 21:25 Dose: Not Given Lactulose (Lactulose Syrup 20 Gm/30 Ml Udc) 20 gm PO TID PRN; Protocol PRN Reason: constipation Stop: 04/15/25 05:59 Levalbuterol HCl (Levalbuterol Rt 1.25 Mg/0.5 Ml Nebu) 1.25 mg INH X1 ONE Stop: 03/09/25 12:15 Last Admin: 03/09/25 13:16 Dose: 1.25 mg Levalbuterol HCl (Levalbuterol Rt 1.25 Mg/0.5 Ml Nebu) 1.25 mg INH Q6HR PRN PRN Reason: WHEEZING Stop: 04/08/25 16:23 Last Admin: 03/09/25 18:09 Dose: 1.25 mg Levalbuterol HCl (Levalbuterol Rt 1.25 Mg/0.5 Ml Nebu) 1.25 mg INH Q6HR [facility] Stop: 04/09/25 00:00 Levalbuterol HCl (Levalbuterol Rt 1.25 Mg/0.5 Ml Nebu) 1.25 mg INH Q6HRRT [facility] Stop: 04/09/25 00:59 Last Admin: 03/10/25 06:15 Dose: 1.25 mg Levalbuterol HCl (Levalbuterol Rt 1.25 Mg/0.5 Ml Nebu) 1.25 mg INH Q4HRRT [facility] Stop: 04/09/25 14:59 Last Admin: 03/18/25 10:00 Dose: 1.25 mg Levalbuterol HCl (Levalbuterol Rt 0.63 Mg/3 Ml Nebu) 0.63 mg INH Q8HR PRN PRN Reason: WHEEZING Stop: 04/10/25 22:52 Last Admin: 03/14/25 16:21 Dose: 0.63 mg Levalbuterol HCl (Levalbuterol Rt 1.25 Mg/0.5 Ml Nebu) 1.25 mg INH Q2HR PRN PRN Reason: SOB/Wheezing Stop: 04/15/25 16:44 Levofloxacin (Levofloxacin 250 Mg Tablet) 250 mg PO QDAY [facility] Stop: 03/24/25 08:59 Last Admin: 03/18/25 08:55 Dose: 250 mg Levofloxacin (Levofloxacin 250 Mg Tablet) 750 mg PO X1 ONE Stop: 03/16/25 04:31 Last Admin: 03/16/25 05:14 Dose: 750 mg Lidocaine HCl (Lidocaine Inj Pf 1% 30 Ml Vial) 11 ml INFL X1 ONE Stop: 03/15/25 14:09 Last Admin: 03/15/25 14:10 Dose: 11 ml Methimazole (Methimazole 5 Mg Tablet) 5 mg PO TID [facility] Stop: 04/13/25 13:59 Last Admin: 03/14/25 21:07 Dose: 5 mg Methylprednisolone Sodium Succinate (Methylprednisolone Sod Succ 62.5 Mg/Ml 2ml Vial) 125 mg IVP X1 ONE Stop: 03/09/25 07:47 Last Admin: 03/09/25 08:13 Dose: 125 mg Methylprednisolone Sodium Succinate (Methylprednisolone Sod Succ 40 Mg Vial) 120 mg IVP X1 ONE Stop: 03/09/25 14:49 Last Admin: 03/09/25 14:57 Dose: 120 mg Methylprednisolone Sodium Succinate (Methylprednisolone Sod Succ 40 Mg Vial) 60 mg IVP TID [facility] Stop: 03/17/25 05:59 Last Admin: 03/11/25 05:08 Dose: 60 mg Methylprednisolone Sodium Succinate (Methylprednisolone Sod Succ 40 Mg Vial) 60 mg IVP BID [facility] Stop: 03/18/25 20:59 Last Admin: 03/14/25 09:16 Dose: 60 mg Methylprednisolone Sodium Succinate (Methylprednisolone Sod Succ 40 Mg Vial) 125 mg IVP X1 ONE Stop: 03/11/25 09:52 Last Admin: 03/11/25 10:16 Dose: 125 mg Methylprednisolone Sodium Succinate (Methylprednisolone Sod Succ 62.5 Mg/Ml 2ml Vial) 125 mg IVP X1 ONE Stop: 03/11/25 10:16 Last Admin: 03/11/25 10:21 Dose: Not Given Methylprednisolone Sodium Succinate (Methylprednisolone Sod Succ 40 Mg Vial) 60 mg IVP QDAY [facility] Stop: 03/22/25 08:59 Last Admin: 03/16/25 09:29 Dose: 60 mg Methylprednisolone Sodium Succinate (Methylprednisolone Sod Succ 40 Mg Vial) 60 mg IVP X1 ONE Stop: 03/16/25 00:59 Last Admin: 03/16/25 02:09 Dose: 60 mg Methylprednisolone Sodium Succinate (Methylprednisolone Sod Succ 40 Mg Vial) 60 mg IVP BID [facility] Stop: 03/23/25 20:59 Last Admin: 03/18/25 08:56 Dose: 60 mg Pantoprazole Sodium (Pantoprazole Inj 40 Mg Vial) 40 mg IVP X1 ONE Stop: 03/09/25 07:47 Last Admin: 03/09/25 08:10 Dose: 40 mg Pantoprazole Sodium (Pantoprazole 40 Mg Tablet) 40 mg PO QDAY SABRINA Stop: 04/09/25 08:59 Last Admin: 03/16/25 09:17 Dose: 40 mg Polyethylene Glycol (Polyethylene Glycol 17 Gm Packet) 17 gm PO QDAY SABRINA Stop: 04/12/25 16:29 Last Admin: 03/13/25 16:43 Dose: 17 gm Potassium Chloride (Potassium Chloride 10% 20 Meq/15 Ml Udc) 40 meq PO X1 ONE Stop: 03/14/25 16:15 Last Admin: 03/14/25 17:41 Dose: 40 meq Sennosides (Senna Tablet) 1 tab PO QDAY SABRINA; Protocol Stop: 04/09/25 08:59 Last Admin: 03/13/25 08:27 Dose: 1 tab Sennosides (Senna Tablet) 2 tab PO QDAY SABRINA; Protocol Stop: 04/13/25 08:59 Sennosides (Senna Tablet) 1 tab PO X1 ONE; Protocol Stop: 03/13/25 17:16 Last Admin: 03/13/25 17:33 Dose: 1 tab Sennosides (Senna Tablet) 1 tab PO QDAY SABRINA; Protocol Stop: 04/13/25 08:59 Last Admin: 03/18/25 08:54 Dose: 1 tab Sodium Chloride (Sodium Chloride Rt Annika 0.9% 3 Ml Nebu) 3 ml INH X1 ONE Stop: 03/09/25 12:16 Last Admin: 03/09/25 13:17 Dose: 3 ml Sodium Chloride (Sodium Chloride Rt Annika 0.9% 3 Ml Nebu) 3 ml INH PRN PRN PRN Reason: SOLN Stop: 04/08/25 16:23 Last Admin: 03/09/25 18:09 Dose: 3 ml Sodium Chloride (Sodium Chloride Rt 10% 15 Ml Nebu) 5 ml INH X1 ONE Stop: 03/18/25 07:46 Last Admin: 03/18/25 09:56 Dose: Not Given Sodium Chloride (Sodium Chloride Rt Annika 0.9% 3 Ml Nebu) 3 ml INH NOW ONE Stop: 03/18/25 10:32 Last Admin: 03/18/25 11:13 Dose: Not Given Sodium Polystyrene Sulfonate (Sod Polystyrene Sulfon Susp 15 Gm/60 Ml Btl) 30 gm PO X1 ONE Stop: 03/20/25 04:11 Last Admin: 03/20/25 04:35 Dose: Not Given Sucralfate (Sucralfate Susp 1 Gm/10 Ml Udc) 1 gm PO X1 ONE Stop: 03/09/25 07:47 Last Admin: 03/09/25 09:41 Dose: 1 gm Trazodone HCl (Trazodone Hcl 50 Mg Tablet) 25 mg PO HS SABRINA Stop: 04/17/25 20:59 Trazodone HCl (Trazodone Hcl 50 Mg Tablet) 25 mg PO HS SABRINA Stop: 04/16/25 22:09 Last Admin: 03/17/25 22:16 Dose: 25 mg Tuberculin PPD (Tuberculin Ppd Inj 5 Unit/0.1 Ml Dose) 5 unit ID X1 ONE Stop: 03/15/25 08:31 Last Admin: 03/15/25 18:22 Dose: Not Given Tuberculin PPD (Tuberculin Ppd Inj 5 Unit/0.1 Ml Dose) 5 unit ID X1 ONE Stop: 03/15/25 19:46 Last Admin: 03/15/25 19:49 Dose: 5 unit
[2025-03-20] MEDS: VANCOMYCIN/NS 500 MG IVPB 100 ML 120 MG IV (11:06)
--- NOTE | 2025-03-20 11:08 | XR_ITS ---
Examination: Abdomen sonogram, Limited Date and time of exam: March 20, 2025 1237 hours INDICATIONS: Elevated liver function tests on laboratory examination today Technique: Real-time penn scale transabdominal sonographic images of the upper abdomen obtained. Findings: Normal gallbladder Normal common bile duct 0.4 cm Pancreatic head 2.5 cm Liver 11.9 cm fatty infiltration Normal hepatopedal portal venous flow Patent IVC IMPRESSION: Normal gallbladder
[2025-03-20 11:21] LABS: Lactic Acid, 3 HR 0.9 mMol/L (0.4-2.0)
--- NOTE | 2025-03-20 11:24 | PD.RESPRO ---
Documentation for date of: 03/20/25 Subjective Subjective Interval history: Patient seen and examined at bedside. Patient continues to be short of breath, using accessory muscles, and primary team did consult pulmonary. Now on 2L NC. Pulmonary consultation was done with Dr. 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 On high-dose steroids along with nebulizations. Also reviewed her xray and feel there is fluid overload also and recommended to change to HD as PD does not work well after few years. Director Customer at [place] failed to find extrapulmonary causes of dyspnea and was discovered to have . GPA was in remission for many years after initial diagnosis in [place] treated with prednisone and methotrexate 25 years ago , renal disease manifested later [facility] biopsy was inconclusive and repeat biopsy at [facility] showed findings consistent with GPA, started on rituximab and steroid used but progressed to ESRD over time around 2019 Recommended hemodialysis previously by me also during last admission but daughter, sons who are the caregivers were not ready for it. Other vitals are stable, creatinine at 6.7, and cracles appreciated throughout the lung mason. Will continue to monitor closely and fluid management as per nephrology as patient on dialysis. Abnormal thyroid function tests and primary team ordered further lab tests; ultrasound of the thyroid revealed bilateral vascular solid thyroid nodules, primary team may consider ultrasound-guided fine-needle aspiration of both nodules. On 03/13/2025 Dr. Olivares had about 30 minutes discussion with the patient's daughter regarding starting the patient on HD, at least for couple of months, and she reported she would decide about it with further discussion with other family members and decide about HD. Finally, on 03/15/2025, patient's family agreed for hemodialysis. After successful placement of IR hemodialysis catheter, she is undergoing hemodialysis session this afternoon. 03/20/2025: Patient is currently on intermittent high flow nasal cannula and BiPAP, labs revealing mild worsening in white count to 20.6. The patient's cANCA titre is 1:20 and antiproteinase 3 is 16.9 and human resources operations manager Dr Arellano recommended bronchoscopy to rule out any kind of alveolar hemorrhage. The patient was started on CRRT by nephrology. However, patient family members were concerned regarding Antonia's granulomatosis flareup, and wished to proceed with flare up treatment with rituximab and high-dose steroid, as previously the patient had received this treatment during flareup and had improved. Finally, the family members decided to transfer the patient to tertiary referral center for higher level of care. We will continue with diltiazem CD to 360 mg daily due to concern regarding tachycardia. Exam Vital Signs Temp Pulse Resp BP Pulse Ox O2 Del Method O2 Flow Rate 98.9 F 94 24 H 129/47 L 100 High Flow Nasal Cannula 15 03/20/25 08:01 03/20/25 10:23 03/20/25 10:23 03/20/25 10:20 03/20/25 10:23 03/20/25 08:01 03/20/25 10:23 FiO2 28 03/20/25 10:23 Narrative Exam General: Alert and oriented x3. In no acute distress. Eyes: Pupils are equal and reactive to light bilaterally. HEENT: Atraumatic, normocephalic. No JVD noted. Mucosa moist. Cardiovascular: Normal S1 and soft S2,. Tachycardic, 3/6 ejection systolic murmur heard at aortic area, 3/6 holosystolic murmur heard on the mitral area and parasternal area, trace peripheral pitting edema noted. Respiratory: Mild respiratory distress on oxygen via high flow nasal cannula, use of accessory muscles appreciated, bilateral air entry present, severe expiratory wheezing noted. Crackles improved Abdomen: Soft, nontender, nondistended. Skin: No rash. Warm to touch. Musculoskeletal: No gross injuries. Able to move all 4 extremities. Neuro: Alert and oriented x3. No focal neuro deficits. Psych: anxious and tired. Objective Labs 03/20/25 03:25 03/20/25 17:23 Labs: Laboratory Results - last 24 hr 03/19/25 03/19/25 03/19/25 18:25 20:50 21:47 WBC RBC Hgb Hct MCV MCH MCHC RDW Std Deviation Plt Count Neut % (Auto) Lymph % (Auto) [place] % (Auto) Eos % (Auto) Baso % (Auto) Neut # (Auto) Lymph # (Auto) [place] # (Auto) Eos # (Auto) Baso # (Auto) Immature Gran # (Auto) Absolute Nucleated RBC Immature Gran % Nucleated RBC % ESR Puncture Site ABG pH ABG pCO2 ABG pO2 ABG HCO3 ABG O2 Saturation ABG Base Excess FiO2 Sodium 130 L 131 L 131 L Potassium 5.9 H 6.0 H 6.0 H Chloride 95 L 94 L 95 L Carbon Dioxide 22.2 20.8 21.0 Anion Gap 13 16 15 BUN 96 H 100 H 94 H Creatinine 5.0 H* D 5.0 H* 5.0 H* Estim Creat Clear Calc 6.3 L 6.3 L 6.3 L eGFR 8 L* 8 L* 8 L* BUN/Creatinine Ratio 19 20 19 Glucose 144 H 127 H 125 H Calculated Osmolality 293 295 292 Lactic Acid 0.8 Calcium 7.7 L 7.8 L 7.7 L Corrected Calcium 8.2 L 8.2 L Phosphorus 8.1 H 8.0 H Magnesium Total Bilirubin AST ALT Alkaline Phosphatase C-Reactive Prot, Quant Total Protein Albumin 3.4 3.4 Globulin Albumin/Globulin Ratio Random Vancomycin 03/20/25 03/20/25 03/20/25 03:25 06:15 07:12 WBC 20.6 H RBC 2.68 L Hgb 8.3 L Hct 23.2 L MCV 87 MCH 31.0 MCHC 35.8 RDW Std Deviation 48.4 H Plt Count 166 Neut % (Auto) 94 H Lymph % (Auto) 1 L [place] % (Auto) 3 Eos % (Auto) 0 Baso % (Auto) 0 Neut # (Auto) 19.2 H Lymph # (Auto) 0.2 L [place] # (Auto) 0.7 Eos # (Auto) 0.0 Baso # (Auto) 0.0 Immature Gran # (Auto) 0.43 H Absolute Nucleated RBC 0.04 H Immature Gran % 2 H Nucleated RBC % 0 ESR Cancelled Puncture Site Right Radial ABG pH 7.31 L ABG pCO2 38 ABG pO2 80 L ABG HCO3 19 L ABG O2 Saturation 95 ABG Base Excess -7 L FiO2 28 Sodium 130 L Potassium 6.6 H* D 5.9 H D Chloride 95 L Carbon Dioxide 18.6 L Anion Gap 16 BUN 88 H Creatinine 5.3 H* Estim Creat Clear Calc 6.0 L eGFR 8 L* BUN/Creatinine Ratio 17 Glucose 116 H Calculated Osmolality 288 Lactic Acid Calcium 7.9 L Corrected Calcium 8.3 L Phosphorus 8.3 H Magnesium 1.9 Total Bilirubin 0.3 AST 46 H ALT 67 H Alkaline Phosphatase 53 C-Reactive Prot, Quant 0.6 Total Protein 5.8 Albumin 3.5 Globulin 2.3 Albumin/Globulin Ratio 1.5 Random Vancomycin 14.6 03/20/25 03/20/25 07:29 11:02 WBC RBC Hgb Hct MCV MCH MCHC RDW Std Deviation Plt Count Neut % (Auto) Lymph % (Auto) [place] % (Auto) Eos % (Auto) Baso % (Auto) Neut # (Auto) Lymph # (Auto) [place] # (Auto) Eos # (Auto) Baso # (Auto) Immature Gran # (Auto) Absolute Nucleated RBC Immature Gran % Nucleated RBC % ESR Puncture Site ABG pH ABG pCO2 ABG pO2 ABG HCO3 ABG O2 Saturation ABG Base Excess FiO2 Sodium Potassium Chloride Carbon Dioxide Anion Gap BUN Creatinine Estim Creat Clear Calc eGFR BUN/Creatinine Ratio Glucose Calculated Osmolality Lactic Acid 2.2 H 0.9 Calcium Corrected Calcium Phosphorus Magnesium Total Bilirubin AST ALT Alkaline Phosphatase C-Reactive Prot, Quant Total Protein Albumin Globulin Albumin/Globulin Ratio Random Vancomycin ABG Interpretation ABG results: 03/09/25 03/09/25 03/10/25 07:50 18:22 09:05 ABG pH 7.45 ABG pCO2 39 ABG pO2 289 H ABG HCO3 27 H ABG O2 Saturation 101 H ABG Base Excess 2 VBG pH 7.39 7.49 VBG pCO2 49 37 D VBG pO2 70 H 68 H VBG Base Excess 4 H 5 H 03/11/25 03/12/25 03/16/25 10:09 09:44 03:09 ABG pH 7.40 7.41 ABG pCO2 44 46 ABG pO2 80 L D 97 ABG HCO3 27 H 29 H ABG O2 Saturation 95 98 ABG Base Excess 2 4 H VBG pH 7.45 VBG pCO2 40 VBG pO2 39 D VBG Base Excess 4 H 03/18/25 03/19/25 03/20/25 14:17 08:33 07:12 ABG pH 7.36 7.31 L ABG pCO2 43 38 ABG pO2 66 L 80 L ABG HCO3 24 19 L ABG O2 Saturation 91 95 ABG Base Excess -1 -7 L VBG pH 7.45 VBG pCO2 39 VBG pO2 59 H VBG Base Excess 3 Quality Measures Quality Measures none Advance care planning discussed with:: child Assessment & Plan Assessment Current Active Medications: Generic Name Dose Route Start Last Admin Trade Name Freq PRN Reason Stop Dose Admin Acetaminophen 650 mg 03/09/25 14:41 03/16/25 22:38 Acetaminophen 325 Mg Tablet PO 04/08/25 14:40 650 mg Q6H PRN Administration Mild Pain(1-3) or Fever >100.3 Albuterol 5 mg 03/18/25 15:00 03/20/25 10:23 Albuterol Rt 2.5 Mg/0.5 Ml Nebu INH 04/17/25 14:59 5 mg Q4HRRT SABRINA Administration Atorvastatin Calcium 40 mg 03/09/25 21:00 03/19/25 21:21 Atorvastatin Calcium 20 Mg Tablet PO 04/08/25 20:59 40 mg HS SABRINA Administration Dextrose 25 ml 03/12/25 08:16 Dextrose 50%-Water Inj 50 Ml Syringe IV 04/11/25 08:15 Q15MIN PRN BG 50-70 responsive npo pt Dextrose 50 ml 03/12/25 08:16 Dextrose 50%-Water Inj 50 Ml Syringe IV 04/11/25 08:15 Q15MIN PRN BG <50 OR BG <70 & pt unresponsive Diltiazem HCl 240 mg 03/20/25 10:30 03/20/25 10:20 Diltiazem Cd 120 Mg Capcr PO 04/19/25 10:29 240 mg QDAY SABRINA Administration Glucagon 1 mg 03/12/25 08:16 Glucagon Inj 1 Mg Vial IM Q15MIN PRN BG <70, and no IV access Guaifenesin 200 mg 03/16/25 14:00 03/20/25 06:24 Guaifenesin Syrup 200 Mg/10 Ml Udc PO 04/15/25 13:59 200 mg TID SABRINA Administration Protocol Heparin Sodium (Porcine) 3,300 unit 03/15/25 15:49 03/20/25 02:32 Heparin Sod Inj 1000 Unit/Ml Vial 10 Ml INDWELLCAT 03/29/25 15:48 3,300 unit X1 PRN Administration DIALYSIS Cefepime HCl 1 gm/ Sodium 50 mls @ 100 mls/hr 03/18/25 16:12 03/20/25 08:39 Chloride IV 03/25/25 16:11 100 mls/hr QDAY SABRINA Administration Insulin Human Lispro 0 unit 03/12/25 11:30 03/20/25 08:23 Insulin Lispro (Admelog) 1 Unit/0.01 Ml Unit SC 04/11/25 11:29 Not Given AC SABRINA Protocol Ipratropium [place] 0.5 mg 03/10/25 15:00 03/20/25 10:23 Ipratropium Rt 0.5 Mg/ 2.5 Ml Nebu INH 04/09/25 14:59 0.5 mg Q4HRRT SABRINA Administration Lactulose 60 gm 03/17/25 10:07 Lactulose Syrup 20 Gm/30 Ml Udc PO 04/15/25 05:59 TID PRN constipation Protocol Melatonin 3 mg 03/09/25 23:18 03/15/25 18:33 Melatonin 3 Mg Tablet PO 04/09/25 20:59 3 mg HS PRN Administration insomnia Methimazole 5 mg 03/15/25 08:45 03/20/25 06:24 Methimazole 5 Mg Tablet PO 04/14/25 08:44 5 mg TID SABRINA Administration Methylprednisolone Sodium Succinate 40 mg 03/18/25 21:00 03/20/25 08:38 Methylprednisolone Sod Succ 40 Mg Vial IVP 03/25/25 20:59 40 mg BID SABRINA Administration Ondansetron HCl 4 mg 03/09/25 14:41 Ondansetron Inj 2 Mg/Ml Inj 2 Ml IVP 04/08/25 14:40 Q6H PRN NAUSEA OR VOMITING Protocol Pantoprazole Sodium 40 mg 03/17/25 03:00 03/20/25 08:39 Pantoprazole Inj 40 Mg Vial IVP 04/16/25 02:59 40 mg BID SABRINA Administration Breztri (Budesonide, 2 ea 03/13/25 12:00 03/19/25 20:00 Glycopyrrolate And INH 04/12/25 11:59 Not Given Formoterol) BID SABRINA Pharmacy Consult 1 each 03/18/25 16:15 Vancomycin Pharmacy To Dose 1 Each Each IV 04/17/25 16:14 QDAY PRN CONSULT Pharmacy Consult 1 each 03/18/25 16:09 Pharmacy Renal Dose Adjustment 1 Ea XX 04/17/25 16:08 PRN PRN CONSULT Sevelamer Carbonate 800 mg 03/20/25 12:00 Sevelamer Carbonate 800 Mg Tablet PO 04/19/25 11:59 TIDWM SABRINA Sodium Chloride 3 ml 03/11/25 16:26 03/20/25 03:05 Sodium Chloride Rt Annika 0.9% 3 Ml Nebu INH 04/10/25 16:25 3 ml PRN PRN Administration SOLN Trazodone HCl 25 mg 03/18/25 13:50 03/18/25 21:31 Trazodone Hcl 50 Mg Tablet PO 04/16/25 22:09 25 mg HS PRN Administration insomnia Protocol Plan A 84-year-old female with a past medical history of severe aortic stenosis with a valve area of 0.5 cm?, moderate MR and TR, moderate PAH, preserved EF with diastolic dysfunction, end-stage renal disease on peritoneal dialysis for the last 4 to 5 years, Antonia's granulomatosis diagnosed 25 years ago, chronic severe asthma since her early 20s, history of multifocal atrial tachycardia, 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 1. Acute hypoxic respiratory failure mostly secondary to fluid overload 2/2 failing PD, and 2. Acute asthma exacerbation 3. Severe aortic stenosis with a valve area less than 0.5 cm? 4. End-stage renal disease on peritoneal dialysis for past 4 to 5 years mostly secondary to Antonia's granulomatosis 5. Abnormal thyroid function tests 6. Multifocal atrial tachycardia 7. Valvular heart disease with severe aortic stenosis, moderate MR and TR 8. Moderate pulmonary artery pretension with an RVSP of 55 mmHg 9. Chronic diastolic congestive heart failure 10. 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 Patient presented with acute hypoxic respiratory failure and and was diagnosed with asthma exacerbation. Patient started on high-dose steroids with Solu-Medrol 60 mg every every 8 hours decreased to every 12 hours, along with nebulizations and inhalers. Still continues to be on oxygen and now use of any accessory muscles appreciated. Combination of upper respiratory tract symptoms along with recent emotional stress. Also on IV antibiotics. Patient has been tachycardic On arrival and EKG reviewed. EKG shows irregularly irregular rhythm but most of the time is 100 to 130 bpm which is typical of multifocal atrial tachycardia. Has irregularly irregular rhythm with varying PP and IL intervals. 3 distinct P wave morphologies are also seen in the lead II. Also patient has underlying lung disease which could contribute's significantly for the multifocal atrial tachycardia Continue rate control with diltiazem 240 mg once daily as no beta-pratik can be given because of the as above. Will uptitrate the diltiazem to 360 mg once daily and if rate is not well-controlled. No anticoagulation required. Patient is mildly elevated troponins at 0.34 and 0.145. Troponin elevation mostly secondary to NSTEMI type II in the setting of supply/demand mismatch. Patient denies any Chest pain or chest pressure at the present moment. EKG showed marked without any acute ST-T changes history of ischemia. Patient is scheduled to have left and right heart cardiac catheterization on Wednesday as outpatient but cannot be done because of her acute hypoxic respiratory failure at the present point of time. Continue Plavix for now and high intensity statin. No beta-pratik because of asthma. No heparin drip required. Patient does have severe as noted above with a valve area of less than 0.5 cm?. Patient also has moderate MR and TR with moderate PAH noted on the previous echocardiogram in November 2024. Workup started as outpatient for the severe and as noted previously was scheduled for the left heart cardiac catheterization and right heart cardiac catheterization which will need to be postponed for now given her acute hypoxic respiratory failure. Will continue further workup of the severe as outpatient. 03/17/2025: Patient seen and examined at bedside. Patient continues to be short of breath, using accessory muscles, and primary team did consult pulmonary. Now on 2L NC. Pulmonary consultation was done with Dr. 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 On high-dose steroids along with nebulizations. Also reviewed her xray and feel there is fluid overload also and recommended to change to HD as PD does not work well after few years. Director Customer at [place] failed to find extrapulmonary causes of dyspnea and was discovered to have . GPA was in remission for many years after initial diagnosis in [place] treated with prednisone and methotrexate 25 years ago , renal disease manifested later [facility] biopsy was inconclusive and repeat biopsy at [facility] showed findings consistent with GPA, started on rituximab and steroid used but progressed to ESRD over time around 2019 Recommended hemodialysis previously by me also during last admission but daughter, sons who are the caregivers were not ready for it. Other vitals are stable, creatinine at 6.7, and cracles appreciated throughout the lung mason. Will continue to monitor closely and fluid management as per nephrology as patient on dialysis. Abnormal thyroid function tests and primary team ordered further lab tests; ultrasound of the thyroid revealed bilateral vascular solid thyroid nodules, primary team may consider ultrasound-guided fine-needle aspiration of both nodules. On 03/13/2025 Dr. Olivares had about 30 minutes discussion with the patient's daughter regarding starting the patient on HD, at least for couple of months, and she reported she would decide about it with further discussion with other family members and decide about HD. Finally, on 03/15/2025, patient's family agreed for hemodialysis. After successful placement of IR hemodialysis catheter, she is undergoing hemodialysis session this afternoon. 03/20/2025: Patient is currently on intermittent high flow nasal cannula and BiPAP, labs revealing mild worsening in white count to 20.6. The patient's cANCA titre is 1:20 and antiproteinase 3 is 16.9 and human resources operations manager Dr Arellano recommended bronchoscopy to rule out any kind of alveolar hemorrhage. The patient was started on CRRT by nephrology. However, patient family members were concerned regarding Antonia's granulomatosis flareup, and wished to proceed with flare up treatment with rituximab and high-dose steroid, as previously the patient had received this treatment during flareup and had improved. Finally, the family members decided to transfer the patient to tertiary referral center for higher level of care. We will continue with diltiazem CD to 360 mg daily due to concern regarding tachycardia. Management of rest of the medical conditions as per primary team and other consultants. Thank you for the consult and allowing me to participate in the care of the patient. Cardiology will continue to follow. The patient's management plan was discussed with my attending physician MD Kevin Murcia MD, PGY3 There is a high probability of sudden, clinically significant or life threatening deterioration in the patient condition which required the highest level of physician preparedness to intervene urgently. I have personally spent 35 minutes of critical care time, exclusive of time spent on any procedures, in evaluation and management of this critically ill patient. Attending Provider Attestation/Addendum I have personally seen and examined the patient separately on the above date of service and discussed the plan of care with the resident. I reviewed the resident Dr. Kevin uSllivan consultation progress note and agree with the resident findings and plan in the note above and have also edited the documentation to reflect my findings and plan. Patient shortness of breath did not improve in spite of the hemodialysis and now started on CRRT. Patient is still on intermittent BiPAP and high flow nasal cannula. Labs with worsening white cell count. The patient's cANCA titre is 1:20 and antiproteinase 3 is 16.9 and human resources operations manager Dr Arellano recommended bronchoscopy to rule out any kind of alveolar hemorrhage. There was discussion about treating the patient with rituximab or high-dose steroid but family did request for rheumatology input and unfortunately we do not have rheumatology here. Also patient was treated for infection admission and we do not have ID in-house at the present moment and family has requested transfer to a tertiary care center. Agree with the patient being transferred to the tertiary care center given her multiple comorbidities as noted previously. Family wants to go to [facility] or [facility] and or [facility] and transfer center working on the same. Had lengthy discussion with the son and daughter as well as the rest of the family yesterday and today for more than 30 minutes each day and answered all questions to their satisfaction. Jori Olivares M.D. Interventional Cardiology
--- NOTE | 2025-03-20 11:34 | ESPR_ITS ---
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 Daughter reported that 1 week before her symptoms her grandson had flulike symptoms few days after that the patient's son-in-law started to have, similar symptoms. After that the patient started develop worsening asthma symptoms. No fever or chills reported however the daughter reported that sometimes she would have arthritis with joint swelling affecting small and large size joints that would resolve and appearing other joints. Patient on regular peritoneal dialysis regularly at home. As per daughter patient denied any chest pain at that time, orthopnea, palpitation, or dizziness. The daughter reported that the patient used to be active and can go to the bathroom and move around the house without assistance. As per the daughter patient has only 2 episodes of Antonia's flares 1 in [facility] in 1999's when she was diagnosed with active disease and was treated with high-dose of steroid and the other was in [place] in 2018. Her symptoms were nasal congestion, epistaxis, shortness of breath, the daughter reported that her steroid helped with her symptoms during these 2 occasions. Denied any abdominal pain, fever, chills, skin rash, nosebleed. During her stay at the hospital patient condition continued to worsen and significantly after she started hemodialysis as per the daughter. Her chest x- ray after hemodialysis that was done on 15 March showed significant worsening of her pulmonary congestion. Patient ABG was consistently within normal values. However patient's work of breath continue to worsen over time requiring BiPAP. Multiple trials of DuoNebs, IV steroid did not help with her symptoms. Patient was initially started on azithromycin and ceftriaxone however with no response, currently patient antibiotics are cefepime and vancomycin. Publicity Writer and operations supervisor believe that the patient has pulmonary vascular congestion secondary to her severe aortic stenosis. Because the patient is unable to tolerate hemodialysis ultrafiltration patient was upgraded to ICU for CRRT with goal to remove 2 to 2.5 L a day. Home medications: Albuterol, atorvastatin, cholestyramine, clopidogrel, diltiazem, Zofran, pantoprazole, budesonide inhaler 03/20/2025: Overnight patient had episodes of hyperkalemia which were treated with protocol however potassium only improved from 6.6-5.9. Patient seen examined at bedside, continues to remain confused, no improvement in mentation since yesterday, is lethargic as well. On physical exam bilateral lung sounds and chest x-ray seems improved, scheduled for CRRT today, nephrology on board. Patient's family hesitant to start CRRT, counseled extensively at bedside, discussed with operations supervisor in detail will proceed with CRRT. Will obtain liver ultrasound, has chronic transaminitis, strict aspiration precautions, patient is confused and has waxing and waning mentation patient's family wants to feed patient, refer to speech therapy. Will continue with IV cefepime and vancomycin, continue methylprednisolone IV, patient's family is hesitant to start patient on high-dose steroids, rituximab/cyclophosphamide for treatment of granulomatous polyangiitis requesting transfer to higher level of care for rheumatology consult and workup. Patient has also received multiple doses of IV antibiotics, we consulted infectious disease, however ID is unavailable for 1 week, will transfer also for infectious disease evaluation. Family wants intubation as last ditch effort, patient has increased work of breathing, we will continue to monitor closely, pending transfer. Exam Vital Signs Temp Pulse Resp BP Pulse Ox O2 Del Method O2 Flow Rate 98.9 F 94 24 H 129/47 L 100 High Flow Nasal Cannula 03/20/25 08:01 03/20/25 10:23 03/20/25 10:23 03/20/25 10:20 03/20/25 10:23 03/20/25 08:01 03/20/25 10:23 FiO2 28 03/20/25 10:23 Narrative Exam Physical Exam General: Lethargic, confused at times, able to answer questions in short sentences. HEENT: Normocephalic, atraumatic, mucous membranes moist, on high flow nasal cannula. Heart: Regular rate and rhythm, positive murmur aortic area, mitral area Lungs: Bilateral crackles, no wheezing Abdomen: Firm, nondistended, nontender, positive bowel sounds. ?No guarding or rebound tenderness. Neurologic: Alert and oriented x2, confused at times, no gross neurological deficit, and patient able to move all 4 extremities. Extremities: 2+ bilateral lower extremity edema, pitting and edema dependent sacral region. Skin: Ecchymosis, no tenderness around dialysis catheter. Peritoneal dialysis catheter noted. Objective Labs 03/22/25 05:50 03/22/25 05:50 Labs: Laboratory Results - last 24 hr 03/19/25 03/19/25 03/19/25 18:25 20:50 21:47 WBC RBC Hgb Hct MCV MCH MCHC RDW Std Deviation Plt Count Neut % (Auto) Lymph % (Auto) [place] % (Auto) Eos % (Auto) Baso % (Auto) Neut # (Auto) Lymph # (Auto) [place] # (Auto) Eos # (Auto) Baso # (Auto) Immature Gran # (Auto) Absolute Nucleated RBC Immature Gran % Nucleated RBC % ESR Puncture Site ABG pH ABG pCO2 ABG pO2 ABG HCO3 ABG O2 Saturation ABG Base Excess FiO2 Sodium 130 L 131 L 131 L Potassium 5.9 H 6.0 H 6.0 H Chloride 95 L 94 L 95 L Carbon Dioxide 22.2 20.8 21.0 Anion Gap 13 16 15 BUN 96 H 100 H 94 H Creatinine 5.0 H* D 5.0 H* 5.0 H* Estim Creat Clear Calc 6.3 L 6.3 L 6.3 L eGFR 8 L* 8 L* 8 L* BUN/Creatinine Ratio 19 20 19 Glucose 144 H 127 H 125 H Calculated Osmolality 293 295 292 Lactic Acid 0.8 Calcium 7.7 L 7.8 L 7.7 L Corrected Calcium 8.2 L 8.2 L Phosphorus 8.1 H 8.0 H Magnesium Total Bilirubin AST ALT Alkaline Phosphatase C-Reactive Prot, Quant Total Protein Albumin 3.4 3.4 Globulin Albumin/Globulin Ratio Random Vancomycin 03/20/25 03/20/25 03/20/25 03:25 06:15 07:12 WBC 20.6 H RBC 2.68 L Hgb 8.3 L Hct 23.2 L MCV 87 MCH 31.0 MCHC 35.8 RDW Std Deviation 48.4 H Plt Count 166 Neut % (Auto) 94 H Lymph % (Auto) 1 L [place] % (Auto) 3 Eos % (Auto) 0 Baso % (Auto) 0 Neut # (Auto) 19.2 H Lymph # (Auto) 0.2 L [place] # (Auto) 0.7 Eos # (Auto) 0.0 Baso # (Auto) 0.0 Immature Gran # (Auto) 0.43 H Absolute Nucleated RBC 0.04 H Immature Gran % 2 H Nucleated RBC % 0 ESR Cancelled Puncture Site Right Radial ABG pH 7.31 L ABG pCO2 38 ABG pO2 80 L ABG HCO3 19 L ABG O2 Saturation 95 ABG Base Excess -7 L FiO2 28 Sodium 130 L Potassium 6.6 H* D 5.9 H D Chloride 95 L Carbon Dioxide 18.6 L Anion Gap 16 BUN 88 H Creatinine 5.3 H* Estim Creat Clear Calc 6.0 L eGFR 8 L* BUN/Creatinine Ratio 17 Glucose 116 H Calculated Osmolality 288 Lactic Acid Calcium 7.9 L Corrected Calcium 8.3 L Phosphorus 8.3 H Magnesium 1.9 Total Bilirubin 0.3 AST 46 H ALT 67 H Alkaline Phosphatase 53 C-Reactive Prot, Quant 0.6 Total Protein 5.8 Albumin 3.5 Globulin 2.3 Albumin/Globulin Ratio 1.5 Random Vancomycin 14.6 03/20/25 03/20/25 07:29 11:02 WBC RBC Hgb Hct MCV MCH MCHC RDW Std Deviation Plt Count Neut % (Auto) Lymph % (Auto) [place] % (Auto) Eos % (Auto) Baso % (Auto) Neut # (Auto) Lymph # (Auto) [place] # (Auto) Eos # (Auto) Baso # (Auto) Immature Gran # (Auto) Absolute Nucleated RBC Immature Gran % Nucleated RBC % ESR Puncture Site ABG pH ABG pCO2 ABG pO2 ABG HCO3 ABG O2 Saturation ABG Base Excess FiO2 Sodium Potassium Chloride Carbon Dioxide Anion Gap BUN Creatinine Estim Creat Clear Calc eGFR BUN/Creatinine Ratio Glucose Calculated Osmolality Lactic Acid 2.2 H 0.9 Calcium Corrected Calcium Phosphorus Magnesium Total Bilirubin AST ALT Alkaline Phosphatase C-Reactive Prot, Quant Total Protein Albumin Globulin Albumin/Globulin Ratio Random Vancomycin ABG Interpretation ABG results: 03/09/25 03/09/25 03/10/25 07:50 18:22 09:05 ABG pH 7.45 ABG pCO2 39 ABG pO2 289 H ABG HCO3 27 H ABG O2 Saturation 101 H ABG Base Excess 2 VBG pH 7.39 7.49 VBG pCO2 49 37 D VBG pO2 70 H 68 H VBG Base Excess 4 H 5 H 03/11/25 03/12/25 03/16/25 10:09 09:44 03:09 ABG pH 7.40 7.41 ABG pCO2 44 46 ABG pO2 80 L D 97 ABG HCO3 27 H 29 H ABG O2 Saturation 95 98 ABG Base Excess 2 4 H VBG pH 7.45 VBG pCO2 40 VBG pO2 39 D VBG Base Excess 4 H 03/18/25 03/19/25 03/20/25 14:17 08:33 07:12 ABG pH 7.36 7.31 L ABG pCO2 43 38 ABG pO2 66 L 80 L ABG HCO3 24 19 L ABG O2 Saturation 91 95 ABG Base Excess -1 -7 L VBG pH 7.45 VBG pCO2 39 VBG pO2 59 H VBG Base Excess 3 Quality Measures Quality Measures none Advance care planning discussed with:: patient and child Assessment & Plan Assessment Current Active Medications: Generic Name Dose Route Start Last Admin Trade Name Freq PRN Reason Stop Dose Admin Acetaminophen 650 mg 03/09/25 14:41 03/16/25 22:38 Acetaminophen 325 Mg Tablet PO 04/08/25 14:40 650 mg Q6H PRN Administration Mild Pain(1-3) or Fever >100.3 Albuterol 5 mg 03/18/25 15:00 03/20/25 10:23 Albuterol Rt 2.5 Mg/0.5 Ml Nebu INH 04/17/25 14:59 5 mg Q4HRRT SABRINA Administration Atorvastatin Calcium 40 mg 03/09/25 21:00 03/19/25 21:21 Atorvastatin Calcium 20 Mg Tablet PO 04/08/25 20:59 40 mg HS SABRINA Administration Dextrose 25 ml 03/12/25 08:16 Dextrose 50%-Water Inj 50 Ml Syringe IV 04/11/25 08:15 Q15MIN PRN BG 50-70 responsive npo pt Dextrose 50 ml 03/12/25 08:16 Dextrose 50%-Water Inj 50 Ml Syringe IV 04/11/25 08:15 Q15MIN PRN BG <50 OR BG <70 & pt unresponsive Diltiazem HCl 240 mg 03/20/25 10:30 03/20/25 10:20 Diltiazem Cd 120 Mg Capcr PO 04/19/25 10:29 240 mg QDAY SABRINA Administration Glucagon 1 mg 03/12/25 08:16 Glucagon Inj 1 Mg Vial IM Q15MIN PRN BG <70, and no IV access Guaifenesin 200 mg 03/16/25 14:00 03/20/25 06:24 Guaifenesin Syrup 200 Mg/10 Ml Udc PO 04/15/25 13:59 200 mg TID SABRINA Administration Protocol Heparin Sodium (Porcine) 3,300 unit 03/15/25 15:49 03/20/25 02:32 Heparin Sod Inj 1000 Unit/Ml Vial 10 Ml INDWELLCAT 03/29/25 15:48 3,300 unit X1 PRN Administration DIALYSIS Cefepime HCl 1 gm/ Sodium 50 mls @ 100 mls/hr 03/18/25 16:12 03/20/25 08:39 Chloride IV 03/25/25 16:11 100 mls/hr QDAY SABRINA Administration Insulin Human Lispro 0 unit 03/12/25 11:30 03/20/25 08:23 Insulin Lispro (Admelog) 1 Unit/0.01 Ml Unit SC 04/11/25 11:29 Not Given AC SABRINA Protocol Ipratropium [place] 0.5 mg 03/10/25 15:00 03/20/25 10:23 Ipratropium Rt 0.5 Mg/ 2.5 Ml Nebu INH 04/09/25 14:59 0.5 mg Q4HRRT SABRINA Administration Lactulose 60 gm 03/17/25 10:07 Lactulose Syrup 20 Gm/30 Ml Udc PO 04/15/25 05:59 TID PRN constipation Protocol Melatonin 3 mg 03/09/25 23:18 03/15/25 18:33 Melatonin 3 Mg Tablet PO 04/09/25 20:59 3 mg HS PRN Administration insomnia Methimazole 5 mg 03/15/25 08:45 03/20/25 06:24 Methimazole 5 Mg Tablet PO 04/14/25 08:44 5 mg TID SABRINA Administration Methylprednisolone Sodium Succinate 40 mg 03/18/25 21:00 03/20/25 08:38 Methylprednisolone Sod Succ 40 Mg Vial IVP 03/25/25 20:59 40 mg BID SABRINA Administration Ondansetron HCl 4 mg 03/09/25 14:41 Ondansetron Inj 2 Mg/Ml Inj 2 Ml IVP 04/08/25 14:40 Q6H PRN NAUSEA OR VOMITING Protocol Pantoprazole Sodium 40 mg 03/17/25 03:00 03/20/25 08:39 Pantoprazole Inj 40 Mg Vial IVP 04/16/25 02:59 40 mg BID SABRINA Administration Breztri (Budesonide, 2 ea 03/13/25 12:00 03/19/25 20:00 Glycopyrrolate And INH 04/12/25 11:59 Not Given Formoterol) BID SABRINA Pharmacy Consult 1 each 03/18/25 16:15 Vancomycin Pharmacy To Dose 1 Each Each IV 04/17/25 16:14 QDAY PRN CONSULT Pharmacy Consult 1 each 03/18/25 16:09 Pharmacy Renal Dose Adjustment 1 Ea XX 04/17/25 16:08 PRN PRN CONSULT Sevelamer Carbonate 800 mg 03/20/25 12:00 Sevelamer Carbonate 800 Mg Tablet PO 04/19/25 11:59 TIDWM SABRINA Sodium Chloride 3 ml 03/11/25 16:26 03/20/25 03:05 Sodium Chloride Rt Annika 0.9% 3 Ml Nebu INH 04/10/25 16:25 3 ml PRN PRN Administration SOLN Trazodone HCl 25 mg 03/18/25 13:50 03/18/25 21:31 Trazodone Hcl 50 Mg Tablet PO 04/16/25 22:09 25 mg HS PRN Administration insomnia Protocol Plan Summary:An 84-year-old female patient with past medical history of CHF EF of 60 to 65% March 30, pulmonary artery hypertension, A-fib, CVA with right-sided hemiparesis residual deficit, hypertension, hyperlipidemia, osteoarthritis, osteoporosis, GERD, asthma, moderate to severe aortic stenosis, left atrial dilatation, 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 Patient was upgraded to the ICU secondary to continue to worsen shortness of breath and the need of CRRT. 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 CVS #HFpEF EF of 60 to 65% #Moderate to Severe valve area less than 0.5 cm? patient has history of prolonged hypertension and aortic stenosis. BNP was elevated 1691, echo showed diastolic dysfunction, chest x-ray showed vascular pulmonary congestion, lower extremity edema seen on examination, Recent echocardiogram showed ejection fraction of 60 to 65%, moderate to severe aortic stenosis Plan: Strict in and out, fluid restriction to 1200, continue with CRRT to remove fluids slowly goals to remove 2 - 2.5 L per day with close attention to the possibility of volume depletion. #A-fib with RVR/multifocal atrial tachycardia rate controlled #Moderate pulmonary artery hypertension RVSP of 55 mmHg EKG showed irregularly irregular heartbeats, unidentified P waves. Cardiology team was consulted. Plan: Patient tolerating well diltiazem 360 p.o. daily, continue Cardiology consulted, appreciate recommendations Pulmonology #Acute hypoxic respiratory failure most likely secondary to pulmonary congestion, pneumonia, Antonia's granulomatosis flare, less likely severe asthma exacerbation #History of Antonia's granulomatosis #History of asthma on daily inhaler Chest x-ray on 15 March, mild opacity in both lung mason consistent with pneumonia, Multilocular cardiac contour, Mild to moderate vascular congestion. CT scan on 18 March 2025 showed extensive opacity in both lungs with 3 pulmonary nodules were found. Patient P ANCA was 1-20, antiproteinase 316.9 Patient was started on methylprednisolone, multiple courses of antibiotics, recently started on vancomycin and cefepime for MRSA and Pseudomonas coverage. Cocci even though it is less likely as the patient resides in [place] and had only come to visit her daughter who works as a injection molding supervisor Influenza, COVID, RSV are negative. Cocci IgM negative IV azithromycin Course Completed (03/09/2025-03/12/2025) & Ceftriaxone 03/10/2025- 03/11/2025 Levaquin 250 mg PO QD for possible pneumonia (03/17-03/18/2025) Plan ? Keep patient on on BiPAP as needed, 3 times daily chest physical therapy, breathing treatment every 4 hours, continue methylprednisolone 40 mg IV twice daily ?Continue cefepime and vancomycin (03/19- GI #History of peritoneal dialysis On examination no rigidity, no signs of discharge around the peritoneal catheter, no spikes of fever, as per daughter who is injection molding supervisor she reported no cloudiness of her dialysate. Peritoneal fluid analysis was clear, peritoneal WBC was 3, peritoneal RBCs was 5, peritoneal LDH was less than 14. Plan Follow nephrology recommendations, monitor any signs of peritonitis, peritoneal culture unremarkable #History of 1 episode hematemesis #History of GERD Hematemesis could be secondary to epistaxis, she is on Protonix twice daily at home, hemoglobin stable since admission range between 9-8 most likely secondary to anemia of chronic disease. Plan ? Continue Protonix 40 mg twice daily, continue to monitor hemoglobin daily, GI was consulted, per GI patient has poor respiratory status for further workup, transfuse blood as needed if hemoglobin below 7. #History of chronic constipation resolved - Hold lactulose 60 3 times daily Renal #ESRD on chronic peritoneal dialysis since 2021 Patient usually on peritoneal dialysis at home, she has some episodes of fluid overload in which she needed temporary hemodialysis. This time patient needed hemodialysis as her pulmonary congestion and her symptoms did not improve. Dr. Womack was consulted, hemodialysis was not tolerable by the patient. Patient was upgraded to the ICU for continuous renal replacement therapy. 3 sessions of hemodialysis, removed 1 L, 0.8 L, 1 L respectively during 3 sessions 03/19-received CRRT, 2.5 L removed Plan -CRRT with goal to remove 2 L over the next 24 hours. -Dr. Amezcua operations supervisor was consulted will follow on the results. #Hyperkalemia Potassium elevated at 6.6 overnight 03/20, received treatment x 2, also received calcium gluconate. Plan: -Undergoing CRRT today, will monitor closely. Follow-up on the BMP. Hem-oncology #Chronic normocytic anemia Patient hemoglobin consistently between 9 and 8, normocytic most likely secondary to her ESRD. Has had 1 episode of hematemesis could be swallowed blood from her epistaxis as the patient has history of Antonia's granulomatosis. Received 10,000 units of Epogen by nephrology team Plan: -Continue to monitor CBC daily. 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 She developed a flare 2018 in [place] was treated with rituximab upper her symptoms did not improve completely at that time however she was improving with peritoneal dialysis slowly. 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 TB skin test during this admission negative Plan Continue antibiotics as above, follow-up on repeat culture and sensitivity. Infectious disease consulted, appreciate recommendations Hospital Maintenance: FEN: Renal diet DVT ppx: SCD GI ppx: Protonix IV lines: Hemodialysis catheter, peripheral IVs Valdovinos: None Code status: Full code Dispo: ICU for CRRT, pending transfer Case discussed with Attending Dr. Griggs. Misha Mcgowan PGY2 Disclaimer: This note was dictated by speech recognition. Minor errors in sterile processing manager may be present due to voice recognition software. Attending Provider Attestation/Addendum pt seen and examined with resident team, agree with above. in brief this is a 84yo F admitted for acute hypoxic resp failure with h/o ESRD on PD converted to HD, Polyangiitis with granulomatosis, asthma, CHF with and Afib c RVR. She is transitioned to ICU for CRRT and additional volume removal. todays phyisical exam is improved from over the last few days. There is still some basilar crackles however overall better. There are a few expiratory wheezes auscultated on post mason. HRIR and some RVR today. 1+ LE pitting edema which is improving. There is no WOB noted today. Given that there is a high suspicion for reactivation of her GPA recs are for burst dose steroids and taper however family is not in favor of steroids. Rituximab is not available at this institution at this time. Family is concerned for superimposed bacterial infection/PNA however all cx have been negative and pt has remained afebrile. Her physical exam and CXR are improving with volume removal. There is low suspicion for bacterial PNA at this time however ID is currently unavailable for consult and their opinion on this complex case. d/w family and cardiology and at this time it is felt that the pt would be best served at a higher level of care with rheumatology and ID services available. This was d/w family and they are aggreable for transfer. d/w transfer nurse for eval. An extended conversation was held with bedside nurse present and daughter and the case reviewed in detail. The family is reluctant to proceed with aggresive or indeed moderate fluid removal. d/w nephrology and we are in aggreement that additional volume removal will continue to help improve the pts respiratory status. case d/w ICU team, nephrology, cardiology, family labs, imaging, records reviewed ~65ccmin required for this pt with acute hypoxic resp failure on HFNC/Bipap and CRRT with pulmonary edema at high risk for further and ongoing decompensation
[2025-03-20 12:14] LABS: Cocci Serology, IgM Negative (Negative)
--- NOTE | 2025-03-20 12:30 | PC.SS ---
SENIOR LINUX SYSTEMS ENGINEER received phone call from APS staff, Rose Cade; to provide update on patient?s discharge disposition.? SENIOR LINUX SYSTEMS ENGINEER informed APS staff that patient remains admitted and currently in ICU.? APS staff informed SENIOR LINUX SYSTEMS ENGINEER that based on the nature of the referral APS has determined that the patient?s return home would be deemed unsafe if the patient is altered at the time of discharge.? APS reiterated that patient needs to be alert/oriented to voice any possible concerns related to home environment prior to transitioning home.? APS stated that if the patient denies residential concerns no barrier to patient returning home.? APS will then make contact with the patient upon return home.?
--- NOTE | 2025-03-20 12:56 | ESDS_ITS ---
Planned Discharge Date 03/20/25 DS: Providers Provider Date of admission: 03/09/25 14:41 Primary care physician: Jori Woodruff Admitting Provider: Yennifer Martinez MD Attending Provider on Admission: Yennifer Martinez MD Consults: 03/09/25 14:53 Consult to Nephrology Stat Comment: Consulting Provider: Temo Amezcua Instructions: Patient uses peritoneal dialysis 03/09/25 23:58 Referral Infection Control Routine Comment: Reason for Infection Control Referral: Current Dialysis Patient 03/10/25 10:08 Consult to Cardiology Urgent Comment: Consulting Provider: Jori Olivares 03/11/25 10:55 Consult to Pulmonology Urgent Comment: asthma Consulting Provider: Al Arellano I 03/16/25 10:49 Consult to Audit Mgr Urgent Comment: Consulting Provider: Veronique Griggs 03/17/25 02:44 Consult to Gastroenterology Stat Comment: GIB, Hb drop Consulting Provider: Peter Abraham 03/19/25 10:30 Continous [Referral Continuous Nebulizer] Routine Comment: Reason for Consult: wheezing 03/19/25 18:15 Consult to Infectious Diseases Stat Comment: unresolving PNA Consulting Provider: Anthony Beaver 03/20/25 11:09 Referral Speech Therapy Routine Comment: 03/20/25 12:55 Referral - Legal Office Administrator Stat Service Needed for Transfer: Rheumatology Addl Comments:: Suspected Relapse of Donna's Attending Provider on DC: Veronique Griggs MD Discharging Provider: Veronique Griggs MD Anticipated date of discharge: 03/20/25 DS: Diagnosis Problem List Completed Was Problem List Reviewed/Reconciled?: Yes Hospital Course Hospital Course Hospital course: Hospital course: Ms Lee is a 84-year-old female with past medical history of CHF EF of 60 to 65% March 30, pulmonary artery hypertension, A-fib, CVA with right-sided hemiparesis residual deficit, hypertension, hyperlipidemia, osteoarthritis, osteoporosis, GERD, asthma, moderate to severe aortic stenosis vmax 3.8, left atrial dilatation, 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 Patient presented to [facility] emergency department on 03/09/2025 and was admitted to the hospital for asthma exacerbation and possible pneumonia was started on IV steroids, breathing treatments scheduled every 4 hours and IV azithromycin Course Completed (03/09/2025-03/12/2025) & Ceftriaxone 03/10/2025-03/11/2025 Levaquin 250 mg PO QD for possible pneumonia (03/17-03/18/2025) and was started on cefepime and vancomycin (03/19-, with the progression of hospital course patient was noted to be fluid overloaded progressively, continued to have increased work of breathing, not tolerating peritoneal dialysis well, was followed by nephrology and cardiology. As patient failed peritoneal dialysis and became fluid overloaded, it was discussed with patient's daughters extensively by hospitalist, nephrology and cardiology team about the possibility of starting patient on hemodialysis to which the daughter agreed eventually, patient had dialysis catheter placed by interventional radiology. Patient received first session of hemodialysis on 03/15, received 3 sessions of hemodialysis inpatient with net removal 2.8 L in 3 sessions, however patient's shortness of breath did not improve, and became hypotensive on hemodialysis, eventually patient was upgraded to intensive care unit on 03/19/2025 for CRRT. Throughout the hospital course patient has failed inpatient treatment on IV steroids (methylprednisolone 60 mg twice daily), breathing treatments (albuterol/ipratropium scheduled every 4 hours), chest physiotherapy, IV antibiotics (as above) and with about 5.3 L (2.8 via HD and 2.5 L via CRRT) fluid removal, during this hospitalization there is a high clinical suspicion of relapse of granulomatous polyangiitis, ANCA screen is positive, c-ANCA titer 1 : 20, antiproteinase 3 16.9 which compared to December 2024 has worsened, comparing patient's CT scan of the chest for this admission to prior pulmonary nodules and infiltrates have worsened as well. Of note patient had 1 episode of hematemesis, possible hemoptysis from epistaxis and there is history of a flareup of granulomatous polyangiitis in 2019 which was treated in [place]. Considering that patient has received multiple antibiotics throughout the hospital course as above patient will also benefit from infectious disease consult, infectious disease currently unavailable at the facility for 1 weeks. Family of patient is hesitant to high-dose IV steroid, rituximab/cyclophosphamide treatment for Antonia's relapse and requesting for rheumatology service which is unavailable at the facility. Patient is currently stable for transfer on high flow nasal cannula for which we are trying to wean off the patient, patient receiving CRRT today, will be able to tolerate hemodialysis otherwise. Nephrology and cardiology agree with transfer, transfer process initiated. Patient is stable for transfer. Transfer/discharge diagnosis: #High Clinical suspicion of granulomatous polyangiitis flare up #Granulomatous polyangiitis, diagnosed 1999 #End-stage renal disease most likely 2/2 granulomatous polyangiitis, new onset hemodialysis 03/15 #Failed peritoneal dialysis, chronic peritoneal dialysis since 2021 #Acute hypoxic respiratory failure most likely secondary to pneumonia, pulmonary congestion, granulomatous polyangiitis flareup #Community-acquired pneumonia #Asthma exacerbation #Asthma by history #Heart failure with preserved ejection fraction, EF 60 to 65% #Moderate to severe aortic stenosis, valve area less than 0.5 cm?, V-max 3.8 #Multifocal atrial tachycardia/atrial fibrillation with RVR #Moderate pulmonary artery hypertension #Transaminitis #Hematemesis versus ?hemoptysis, one episode #Chronic constipation, ileus, resolved #GERD #Gastritis, by history #Hyperkalemia #Hyperphosphatemia #Chronic normocytic anemia Case discussed with Attending Dr. Veronique Griggs MD. Misha Mcgowan MD Internal Medicine Resident PGY2 Disclaimer: This note was dictated by speech recognition. Minor errors in upholsterer inside may be present due to voice recognition software. Time Spent with Patient Time attestation: Total time spent providing and/or coordinating discharge services: Time spent: Greater than 30 minutes Exam Vital Signs Temp Pulse Resp BP Pulse Ox O2 Del Method O2 Flow Rate 98.9 F 94 24 H 129/47 L 100 High Flow Nasal Cannula 03/20/25 08:01 03/20/25 10:03/20/25 10:23 03/20/25 10:20 03/20/25 10:23 03/20/25 08:01 03/20/25 10:23 FiO2 28 03/20/25 10:23 Narrative Exam Physical Exam General: Lethargic, confused at times, able to answer questions in short sentences. HEENT: Normocephalic, atraumatic, mucous membranes moist, on high flow nasal cannula. Heart: Regular rate and rhythm, positive murmur aortic area, mitral area Lungs: Bilateral crackles, no wheezing Abdomen: Firm, nondistended, nontender, positive bowel sounds. ?No guarding or rebound tenderness. Neurologic: Alert and oriented x2, confused at times, no gross neurological deficit, and patient able to move all 4 extremities. Extremities: 2+ bilateral lower extremity edema, pitting and edema dependent sacral region. Skin: Ecchymosis, no tenderness around dialysis catheter. Peritoneal dialysis catheter noted. Discharge Plan Prescriptions/Referrals Prescriptions/Med Rec: No Action megestrol 400 mg/10 mL (40 mg/mL) suspension 40 mg PO QDAY Qty: 240 0RF ondansetron 4 mg tablet,disintegrating 4 mg PO Q6H PRN (Reason: nausea and vomiting) Qty: 30 0RF Rx Instructions: disintegrating tablet cholestyramine (with sugar) 4 gram powder in packet 4 g PO TID PRN (Reason: diarrhea ) Qty: 21 0RF Rx Instructions: administer w/meal; avoid other meds within 1hr before or 4-6hr after dose Titrate to bowel movements as needed. clopidogrel [Plavix] 75 MG tablet 75 mg PO QDAY Qty: 30 0RF atorvastatin 40 mg Tablet 40 mg PO QDAY diltiazem HCl 240 mg capsule,extended release 24hr 240 mg PO DAILY acetaminophen [Tactinal] 325 mg tablet 650 mg PO Q6H PRN (Reason: fever or pain) Breztri Aerosphere 160-9-4.8 mcg/actuation HFA aerosol inhaler 2 inh inhalation BID Qty: 10.7 3RF albuterol sulfate [Ventolin HFA] 90 mcg/actuation Hfa Aerosol Inhaler 2 puff INHALATION QID PRN (Reason: sob) 30 Days Qty: 2 0RF pantoprazole 20 mg tablet,delayed release (DR/EC) 20 mg PO BID Qty: 60 0RF Referrals: Jori Woodruff [Primary Care Provider] - Patient/Caregiver Discharge Instructions Print Language: Kinyarwanda Quality Discharge Quality Measures none
--- NOTE | 2025-03-20 13:02 | PC.CC ---
Addendum entered by Zay Mason RN 03/20/25 18:38: 1836: called [facility] to confirm receipt on images, Graciela confirmed. She stated once in converts from Amanda into the patients chart, they will review. I will follow up in the morning if they don't make a determination tonight. Addendum entered by Zay Mason RN 03/20/25 17:55: 1741: called [facility] again to request the Amanda link. Spoke to Jennifer, link received. Uploading images Addendum entered by Zay Mason RN 03/20/25 16:43: 1626: Called Jeane at [facility], transfer request initiated. She will send the link to upload imaging. 1620: Called [place] [facility] again, spoke to Henrietta, transfer request initiated. After Henrietta gathered all information, she informed me that Rheumatology and ID fall under Medicine and they are at capacity and declined the transfer request. Addendum entered by Zay Mason RN 03/20/25 15:46: 1539: Called [place] [facility], currently on hold. 1538: called [facility], transfer initiation decline due to capacity. 1536: received call from Luisa ware/ [facility], she stated due to capacity and they are not the closest facility with these services, they declined the transfer request Addendum entered by Zay Mason RN 03/20/25 15:10: 1459: called Luisa back, clarified pt needs telemetry. She stated she will send for review and call me back. 1454: spoke to stone, pt has not been on bipap today and has tolerated 5L N/C 94%. 1445: called [facility], spoke to Luisa, transfer request initiated. After review of clinicals, Luisa requested to clarify level of care due to bipap usage. Addendum entered by Zay Mason RN 03/20/25 13:55: 1354: clinicals sent out to [facility] and [facility]. 1352: received wanda from [facility], transfer orders remain the same services. Addendum entered by Zay Mason RN 03/20/25 13:45: 1334: received call from [facility] stated Dr. A Gutierrez is stating patient needs Hematology not Rheumatology. Informed Stone that clarification of services requested needs to be clear before reaching to tertiary transfer centers. He stated he will call me back after talking to both Doctors. Informed at this time that pt's family is requesting [facility] and [place]. will send clinicals when services requested is clarified. 1331: spoke to Charge nurse Ludy to clarify services requested. She stated Rheumatology and Infectious disease. New order received. Rheumatology for suspected relapse of Donna's and ID for pneumonia. Original Note: 1306: status of clinicals sent are in sending mode. 1249: called [facility], per Jason saini Rheumotology, try [facility], [place], and [facility]. clinicals and imaging sent to [facility] and [facility]. 1238: received call from ICU charge nurse Ludy to initiate transfer per Dr. Griggs. Informed her to have Dr. Griggs enter order.
[2025-03-20 18:00] LABS: Albumin, Serum 3.6 gm/dL (3.4-4.8); Anion Gap 12 (7-16); BUN/Creatinine Ratio 20 Ratio (12-20); Blood Urea Nitrogen 64 mg/dL (9-23); Calcium 8.2 mg/dL (8.3-10.6); Calcium (Corrected) 8.5 mg/dL (8.5-10.1); Carbon Dioxide 25.1 mMol/L (20.0-31.0); Chloride 97 mMol/L (98-107); Creatinine (Component) 3.2 mg/dL (0.6-1.3); Estimated Creatinine Clearance 9.5 mL/min (>60); Glucose 118 mg/dL (74-106); Osmolality,Calculated 287 (275-295); Phosphorous 4.5 mg/dL (2.4-5.1); Potassium 4.3 mMol/L (3.4-5.1); Sodium 134 mMol/L (136-145); eGFR 14 See Note
--- NOTE | 2025-03-20 20:36 | ESPR_ITS ---
Documentation for date of: 03/20/25 Subjective Subjective Interval history: Patient evaluated Met with the daughter Agree with transfer of this patient to a tertiary center Exam Vital Signs Temp Pulse Resp BP Pulse Ox O2 Del Method O2 Flow Rate 97 F 111 H 20 143/67 H 95 Nasal Cannula 1 03/20/25 16:00 03/20/25 20:15 03/20/25 20:01 03/20/25 20:15 03/20/25 20:01 03/20/25 18:29 03/20/25 18:47 FiO2 25 03/20/25 14:19 Objective Labs 03/20/25 03:25 03/20/25 17:23 Labs: Laboratory Results - last 24 hr 03/19/25 03/19/25 03/19/25 11:17 20:50 21:47 WBC RBC Hgb Hct MCV MCH MCHC RDW Std Deviation Plt Count Neut % (Auto) Lymph % (Auto) [place] % (Auto) Eos % (Auto) Baso % (Auto) Neut # (Auto) Lymph # (Auto) [place] # (Auto) Eos # (Auto) Baso # (Auto) Immature Gran # (Auto) Absolute Nucleated RBC Immature Gran % Nucleated RBC % ESR Puncture Site ABG pH ABG pCO2 ABG pO2 ABG HCO3 ABG O2 Saturation ABG Base Excess FiO2 Sodium 131 L 131 L Potassium 6.0 H 6.0 H Chloride 94 L 95 L Carbon Dioxide 20.8 21.0 Anion Gap 16 15 BUN 100 H 94 H Creatinine 5.0 H* 5.0 H* Estim Creat Clear Calc 6.3 L 6.3 L eGFR 8 L* 8 L* BUN/Creatinine Ratio 20 19 Glucose 127 H 125 H Calculated Osmolality 295 292 Lactic Acid 0.8 Calcium 7.8 L 7.7 L Corrected Calcium 8.2 L Phosphorus 8.0 H Magnesium Total Bilirubin AST ALT Alkaline Phosphatase C-Reactive Prot, Quant Total Protein Albumin 3.4 Globulin Albumin/Globulin Ratio Random Vancomycin Coccidioides IgM Ab Negative 03/20/25 03/20/25 03/20/25 03:25 06:15 07:12 WBC 20.6 H RBC 2.68 L Hgb 8.3 L Hct 23.2 L MCV 87 MCH 31.0 MCHC 35.8 RDW Std Deviation 48.4 H Plt Count 166 Neut % (Auto) 94 H Lymph % (Auto) 1 L [place] % (Auto) 3 Eos % (Auto) 0 Baso % (Auto) 0 Neut # (Auto) 19.2 H Lymph # (Auto) 0.2 L [place] # (Auto) 0.7 Eos # (Auto) 0.0 Baso # (Auto) 0.0 Immature Gran # (Auto) 0.43 H Absolute Nucleated RBC 0.04 H Immature Gran % 2 H Nucleated RBC % 0 ESR Cancelled Puncture Site Right Radial ABG pH 7.31 L ABG pCO2 38 ABG pO2 80 L ABG HCO3 19 L ABG O2 Saturation 95 ABG Base Excess -7 L FiO2 28 Sodium 130 L Potassium 6.6 H* D 5.9 H D Chloride 95 L Carbon Dioxide 18.6 L Anion Gap 16 BUN 88 H Creatinine 5.3 H* Estim Creat Clear Calc 6.0 L eGFR 8 L* BUN/Creatinine Ratio 17 Glucose 116 H Calculated Osmolality 288 Lactic Acid Calcium 7.9 L Corrected Calcium 8.3 L Phosphorus 8.3 H Magnesium 1.9 Total Bilirubin 0.3 AST 46 H ALT 67 H Alkaline Phosphatase 53 C-Reactive Prot, Quant 0.6 Total Protein 5.8 Albumin 3.5 Globulin 2.3 Albumin/Globulin Ratio 1.5 Random Vancomycin 14.6 Coccidioides IgM Ab 03/20/25 03/20/25 03/20/25 07:29 11:02 17:23 WBC RBC Hgb Hct MCV MCH MCHC RDW Std Deviation Plt Count Neut % (Auto) Lymph % (Auto) [place] % (Auto) Eos % (Auto) Baso % (Auto) Neut # (Auto) Lymph # (Auto) [place] # (Auto) Eos # (Auto) Baso # (Auto) Immature Gran # (Auto) Absolute Nucleated RBC Immature Gran % Nucleated RBC % ESR Puncture Site ABG pH ABG pCO2 ABG pO2 ABG HCO3 ABG O2 Saturation ABG Base Excess FiO2 Sodium 134 L Potassium 4.3 D Chloride 97 L Carbon Dioxide 25.1 Anion Gap 12 BUN 64 H Creatinine 3.2 H D Estim Creat Clear Calc 9.5 L eGFR 14 L* BUN/Creatinine Ratio 20 Glucose 118 H Calculated Osmolality 287 Lactic Acid 2.2 H 0.9 Calcium 8.2 L Corrected Calcium 8.5 Phosphorus 4.5 Magnesium Total Bilirubin AST ALT Alkaline Phosphatase C-Reactive Prot, Quant Total Protein Albumin 3.6 Globulin Albumin/Globulin Ratio Random Vancomycin Coccidioides IgM Ab Impressions Impression: Hemoccult positive stool Critical aortic stenosis Renal failure Vasculitis Continue supportive care ABG Interpretation ABG results: 03/09/25 03/09/25 03/10/25 07:50 18:22 09:05 ABG pH 7.45 ABG pCO2 39 ABG pO2 289 H ABG HCO3 27 H ABG O2 Saturation 101 H ABG Base Excess 2 VBG pH 7.39 7.49 VBG pCO2 49 37 D VBG pO2 70 H 68 H VBG Base Excess 4 H 5 H 03/11/25 03/12/25 03/16/25 10:09 09:44 03:09 ABG pH 7.40 7.41 ABG pCO2 44 46 ABG pO2 80 L D 97 ABG HCO3 27 H 29 H ABG O2 Saturation 95 98 ABG Base Excess 2 4 H VBG pH 7.45 VBG pCO2 40 VBG pO2 39 D VBG Base Excess 4 H 03/18/25 03/19/25 03/20/25 14:17 08:33 07:12 ABG pH 7.36 7.31 L ABG pCO2 43 38 ABG pO2 66 L 80 L ABG HCO3 24 19 L ABG O2 Saturation 91 95 ABG Base Excess -1 -7 L VBG pH 7.45 VBG pCO2 39 VBG pO2 59 H VBG Base Excess 3 Assessment & Plan A&P Narrative # FOBT positive in a patient who has severe aortic stenosis 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 Since she has hypoxic respiratory failure At least at this point I will not subject the patient to any invasive GI workup till the respiratory status and the volume overload is corrected The patient needs anticoagulation for some reason she cannot be fully anticoagulated as she is not bleeding away And if she does bleed at that consider invasive GI workup Other medical problems include # Acute hypoxic respiratory failure on high flow oxygen # Severe aortic stenosis moderate MR and TR # End-stage renal disease on hemodialysis Will follow the patient Thank you very much for the opportunity to participate in the care of this patient Time Spent With Patient Time: Total time spent is greater than 50% in coordination of care (as documented) at patient's floor/unit and/or counseling patient:
[2025-03-20] MEDS: ATORVASTATIN CALCIUM 20 MG TABLET 40 MG PO (21:33)
[2025-03-21] VITALS (79 sets, daily range): BP systolic 86–154; BP diastolic 46–115; PULSE 92–149; RESP 12–53; TEMP 36.1–37.3; O2SAT 90–100; BMI 26.4
[2025-03-21 00:28] LABS: Albumin, Serum 3.4 gm/dL (3.4-4.8); Anion Gap 9 (7-16); BUN/Creatinine Ratio 9 Ratio (12-20); Blood Urea Nitrogen 8 mg/dL (9-23); Calcium 7.7 mg/dL (8.3-10.6); Calcium (Corrected) 8.2 mg/dL (8.5-10.1); Carbon Dioxide 27.6 mMol/L (20.0-31.0); Chloride 100 mMol/L (98-107); Creatinine (Component) 0.9 mg/dL (0.6-1.3); Estimated Creatinine Clearance 33.7 mL/min (>60); Glucose 100 mg/dL (74-106); Osmolality,Calculated 272 (275-295); Phosphorous 2.3 mg/dL (2.4-5.1); Potassium 3.9 mMol/L (3.4-5.1); Sodium 137 mMol/L (136-145); eGFR > 60 See Note
[2025-03-21] MEDS: ALBUTEROL RT 2.5 MG/0.5 ML NEBU 5 MG INH ×6 (02:40→23:12)
[2025-03-21] MEDS: IPRATROPIUM RT 0.5 MG/ 2.5 ML NEBU INH ×6 (02:41→23:12)
[2025-03-21] MEDS: HEPARIN SOD INJ 1000 UNIT/ML VIAL 10 ML 3300 UNIT INDWELLCAT (04:14)
[2025-03-21] MEDS: guaiFENesin SYRUP 200 MG/10 ML UDC PO ×3 (05:35→22:17)
[2025-03-21] MEDS: METHIMAZOLE 5 MG TABLET PO ×3 (05:36→22:18)
[2025-03-21 06:16] LABS: Basophils # (Auto) 0.0 Thou/mm3 (0.0-0.2); Basophils % (Auto) 0 % (0-2.5); Eosinophils # (Auto) 0.0 Thou/mm3 (0.0-0.5); Eosinophils % (Auto) 0 % (0-10); Hematocrit 21.9 % (36.0-46.0); Immature Granulocytes Auto 0.45 Thou/mm3 (0.00-0.00); Lymphocytes # (Auto) 0.2 Thou/mm3 (1.0-4.8); Lymphocytes % (Auto) 1 % (10-50); Mean Corpuscular HGB Conc 35.2 g/dl (31.0-37.0); Mean Corpuscular Hemoglobin 30.2 pg (25.0-35.0); Mean Corpuscular Volume 86 fL (80-100); Monocytes # (Auto) 0.9 Thou/mm3 (0.0-0.8); Monocytes % (Auto) 4 % (0-12); Neutrophils # (Auto) 20.4 Thou/mm3 (1.8-7.7); Neutrophils % (Auto) 93 % (37-80); Nucleated Red Blood Cell # 0.04 Thou/mm3 (0.00-0.00); Nucleated Red Blood Cell % 0 /100 WBC (0); Platelet Count 134 Thou/mm3 (140-440); RDW Standard Deviation 48.4 fL (36.4-46.3); Red Blood Count 2.55 Miln/mm3 (4.00-5.20); White Blood Count 22.1 Thou/mm3 (3.6-11.0)
[2025-03-21 06:21] LABS: Alanine Aminotransferase 72 U/L (10-49); Albumin, Serum 3.3 gm/dL (3.4-4.8); Albumin/Globulin Ratio 1.7 (1.2-2.2); Alkaline Phosphatase 48 U/L (46-116); Anion Gap 10 (7-16); Aspartate Amino Transferase 45 U/L (0-34); BUN/Creatinine Ratio 10 Ratio (12-20); Bilirubin,Total 0.6 mg/dL (0.3-1.2); Blood Urea Nitrogen < 5 mg/dL (9-23); Calcium 7.6 mg/dL (8.3-10.6); Calcium (Corrected) 8.2 mg/dL (8.5-10.1); Carbon Dioxide 29.1 mMol/L (20.0-31.0); Chloride 99 mMol/L (98-107); Creatinine (Component) 0.5 mg/dL (0.6-1.3); Estimated Creatinine Clearance 60.7 mL/min (>60); Globulin 1.9 gm/dL (2.3-3.5); Glucose 96 mg/dL (74-106); Magnesium 1.4 mg/dL (1.6-2.6); Osmolality,Calculated 272 (275-295); Phosphorous 2.2 mg/dL (2.4-5.1); Potassium 3.1 mMol/L (3.4-5.1); Sodium 138 mMol/L (136-145); Total Protein 5.2 gm/dL (5.7-8.2); Vancomycin,Random 7.8 mcg/mL; eGFR > 60 See Note
[2025-03-21 06:25] LABS: Hemoglobin 7.7 g/dL (12.0-16.0)
--- NOTE | 2025-03-21 08:14 | PC.CC ---
Addendum entered by Zay Mason RN 03/21/25 19:35: 1930: spoke to Tristen, he confirmed receipt of all images sent. Discrepency was on their side as the pt's name was spelled incorrectly. Addendum entered by Zay Mason RN 03/21/25 18:31: 1822: called [facility], spoke to Boo. Informed him that I have sent the CT chest w/o contrast study date of 03/19/25 several times through 3 different [employer] links, Note, and [employer] and all show successful transmissions. He stated he will email his radiology dept to try to look for it on their end. He stated Tristen is back tomorrow and we can deal with it tomorrow. Addendum entered by Zay Mason RN 03/21/25 17:10: sent all imaging requested through [employer] and [employer] link several times today.. They [facility] received all but the CT chest w/o con done 03/19/25. Addendum entered by Zay Mason RN 03/21/25 12:27: 1207: uploaded all imaging again, called [facility]. informed RN pat this is the 3rd time uploading images. She stated she will call me back if she still does not receive them. 1143: [facility] to confirm receipt. They did not receive d/t expiration of link sent yesterday and used today. Received new link. 1132: Previously uploaded images sent again and 12/28/24 CT ABD sent as well. 1043 received call from Tristen ware/ [facility] requesting peer to peer, call initiated with Dr. Griggs and Hank Mendoza. During this discussion, CT of abd done 12/28/24 requested to be uploaded. 0940: received call from Boo w/ [facility] requesting images to be uploaded. Informed him that i confirmed receipt last night. He stated they did not have them. Original Note: 0812: Called [facility], spoke to Gisell. I informed her patient is now Telemetry level, informed her TABLO is complete. She stated the transfer request was put on hold d/t the level of care but will now be reviewed this morning by the Medicine team. They will reach out when they have a determination. 0759: Pt downgraded to Telemetry level. 0730: Spoke to Charge nurse Ludy, explained the situation with [facility]. She stated she will discuss with Dr. Griggs. 0700: received report from [employer] stating [facility] called during her shift. Pt was on TABLO and 1:1 which makes her a ICU level. [facility] requested that we call when patient is downgraded.
--- NOTE | 2025-03-21 09:04 | XR_ITS ---
Examination: AP chest single view Technique one AP semiupright portable chest single view Date and time: March 21, 2025 0911 hours Comparison March 20, 2025 INDICATIONS: Acute hypoxic respiratory failure, difficulty breathing this week. FINDINGS: Mild enlargement cardiac contour Moderate vascular congestion. Suspicious for mild pneumonia in the right upper lobe. Right internal jugular dialysis catheter tips SVC IMPRESSION: Moderate vascular congestion Suspicious for early pneumonia right upper lobe
[2025-03-21] MEDS: Magnesium Sulfate 4 GM Ivpb 4 GM/50 ML BAG IV (09:45)
[2025-03-21] MEDS: POLYETHYLENE GLYCOL 17 GM PACKET PO (09:47)
[2025-03-21] MEDS: DILTIAZEM CD 120 MG CAPCR 360 MG PO (09:47)
[2025-03-21 09:59] LABS: Basophils # (Auto) 0.0 Thou/mm3 (0.0-0.2); Basophils % (Auto) 0 % (0-2.5); Eosinophils # (Auto) 0.0 Thou/mm3 (0.0-0.5); Eosinophils % (Auto) 0 % (0-10); Hematocrit 21.8 % (36.0-46.0); Immature Granulocytes Auto 0.34 Thou/mm3 (0.00-0.00); Lymphocytes # (Auto) 0.3 Thou/mm3 (1.0-4.8); Lymphocytes % (Auto) 1 % (10-50); Mean Corpuscular HGB Conc 34.9 g/dl (31.0-37.0); Mean Corpuscular Hemoglobin 29.9 pg (25.0-35.0); Mean Corpuscular Volume 86 fL (80-100); Monocytes # (Auto) 0.9 Thou/mm3 (0.0-0.8); Monocytes % (Auto) 4 % (0-12); Neutrophils # (Auto) 18.5 Thou/mm3 (1.8-7.7); Neutrophils % (Auto) 93 % (37-80); Nucleated Red Blood Cell # 0.07 Thou/mm3 (0.00-0.00); Nucleated Red Blood Cell % 0 /100 WBC (0); Platelet Count 145 Thou/mm3 (140-440); RDW Standard Deviation 48.0 fL (36.4-46.3); Red Blood Count 2.54 Miln/mm3 (4.00-5.20); White Blood Count 20.0 Thou/mm3 (3.6-11.0)
[2025-03-21 10:01] LABS: Hemoglobin 7.6 g/dL (12.0-16.0)
[2025-03-21 10:11] LABS: Alanine Aminotransferase 84 U/L (10-49); Albumin, Serum 3.3 gm/dL (3.4-4.8); Albumin/Globulin Ratio 1.7 (1.2-2.2); Alkaline Phosphatase 49 U/L (46-116); Anion Gap 9 (7-16); Aspartate Amino Transferase 50 U/L (0-34); BUN/Creatinine Ratio 8 Ratio (12-20); Bilirubin,Total 0.5 mg/dL (0.3-1.2); Blood Urea Nitrogen 8 mg/dL (9-23); Calcium 7.9 mg/dL (8.3-10.6); Calcium (Corrected) 8.5 mg/dL (8.5-10.1); Carbon Dioxide 28.3 mMol/L (20.0-31.0); Chloride 99 mMol/L (98-107); Creatinine (Component) 1.0 mg/dL (0.6-1.3); Estimated Creatinine Clearance 30.6 mL/min (>60); Globulin 2.0 gm/dL (2.3-3.5); Glucose 109 mg/dL (74-106); Osmolality,Calculated 271 (275-295); Potassium 3.4 mMol/L (3.4-5.1); Sodium 136 mMol/L (136-145); Total Protein 5.3 gm/dL (5.7-8.2); eGFR 56 See Note
[2025-03-21] MEDS: BREZTRI 2 EA INH ×2 (10:28→19:28)
--- NOTE | 2025-03-21 10:53 | PD.RESPRO ---
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 Daughter reported that 1 week before her symptoms her grandson had flulike symptoms few days after that the patient's son-in-law started to have, similar symptoms. After that the patient started develop worsening asthma symptoms. No fever or chills reported however the daughter reported that sometimes she would have arthritis with joint swelling affecting small and large size joints that would resolve and appearing other joints. Patient on regular peritoneal dialysis regularly at home. As per daughter patient denied any chest pain at that time, orthopnea, palpitation, or dizziness. The daughter reported that the patient used to be active and can go to the bathroom and move around the house without assistance. As per the daughter patient has only 2 episodes of Antonia's flares 1 in [facility] in 1999's when she was diagnosed with active disease and was treated with high-dose of steroid and the other was in [place] in 2018. Her symptoms were nasal congestion, epistaxis, shortness of breath, the daughter reported that her steroid helped with her symptoms during these 2 occasions. Denied any abdominal pain, fever, chills, skin rash, nosebleed. During her stay at the hospital patient condition continued to worsen and significantly after she started hemodialysis as per the daughter. Her chest x-ray after hemodialysis that was done on 15 March showed significant worsening of her pulmonary congestion. Patient ABG was consistently within normal values. However patient's work of breath continue to worsen over time requiring BiPAP. Multiple trials of DuoNebs, IV steroid did not help with her symptoms. Patient was initially started on azithromycin and ceftriaxone however with no response, currently patient antibiotics are cefepime and vancomycin. Harness Cutter and counselor aid believe that the patient has pulmonary vascular congestion secondary to her severe aortic stenosis. Because the patient is unable to tolerate hemodialysis ultrafiltration patient was upgraded to ICU for CRRT with goal to remove 2 to 2.5 L a day. Home medications: Albuterol, atorvastatin, cholestyramine, clopidogrel, diltiazem, Zofran, pantoprazole, budesonide inhaler 03/20/2025: Overnight patient had episodes of hyperkalemia which were treated with protocol however potassium only improved from 6.6-5.9. Patient seen examined at bedside, continues to remain confused, no improvement in mentation since yesterday, is lethargic as well. On physical exam bilateral lung sounds and chest x-ray seems improved, scheduled for CRRT today, nephrology on board. Patient's family hesitant to start CRRT, counseled extensively at bedside, discussed with counselor aid in detail will proceed with CRRT. Will obtain liver ultrasound, has chronic transaminitis, strict aspiration precautions, patient is confused and has waxing and waning mentation patient's family wants to feed patient, refer to speech therapy. Will continue with IV cefepime and vancomycin, continue methylprednisolone IV, patient's family is hesitant to start patient on high-dose steroids, rituximab/cyclophosphamide for treatment of granulomatous polyangiitis requesting transfer to higher level of care for rheumatology consult and workup. Patient has also received multiple doses of IV antibiotics, we consulted infectious disease, however ID is unavailable for 1 week, will transfer also for infectious disease evaluation. Family wants intubation as last ditch effort, patient has increased work of breathing, we will continue to monitor closely, pending transfer. 03/21/2025: No overnight events, patient completed CRRT today - 1.5 L this morning, magnesium repleted, potassium repeated shows potassium 3.4. Antibiotics will be discontinued, patient did receive extensive therapy during the hospitalization, MRSA nares negative. Repeat labs today show hemoglobin is stable, if patient's hemoglobin downtrends-there is high suspicion of diffuse alveolar hemorrhages secondary to activation of Antonia's, consider high-dose steroids and rituximab. Underlying transaminitis likely secondary to NAFLD,liver ultrasound shows fatty infiltration of liver. Chest x-ray shows marked vascular congestion, otherwise patient is stable 1 L nasal cannula. Nephrology to continue dialysis. Patient pending transfer for rheumatology service. Exam Vital Signs Temp Pulse Resp BP Pulse Ox O2 Del Method O2 Flow Rate 98.5 F 132 H 22 H 131/82 H 100 Nasal Cannula 1 03/21/25 04:15 03/21/25 10:33 03/21/25 10:33 03/21/25 09:47 03/21/25 10:33 03/20/25 18:29 03/21/25 10:33 FiO2 25 03/20/25 14:19 Narrative Exam Physical Exam General: Alert, awake, A and O x 3 able to answer questions in short sentences. HEENT: Normocephalic, atraumatic, mucous membranes moist, on 1L nasal cannula. Heart: Regular rate and rhythm, positive murmur aortic area, mitral area Lungs: Minimal bilateral crackles, no wheezing Abdomen: Firm, nondistended, nontender, positive bowel sounds. ?No guarding or rebound tenderness. Neurologic: Alert and oriented x3, no gross neurological deficit, and patient able to move all 4 extremities. Extremities: 1+ bilateral lower extremity edema, pitting and edema dependent sacral region. Skin: Ecchymosis, no tenderness around dialysis catheter. Peritoneal dialysis catheter noted. Objective Labs 03/22/25 05:50 03/22/25 05:50 Labs: Laboratory Results - last 24 hr 03/19/25 03/20/25 03/20/25 11:17 11:02 17:23 WBC RBC Hgb Hct MCV MCH MCHC RDW Std Deviation Plt Count Neut % (Auto) Lymph % (Auto) Rowan % (Auto) Eos % (Auto) Baso % (Auto) Neut # (Auto) Lymph # (Auto) Rowan # (Auto) Eos # (Auto) Baso # (Auto) Immature Gran # (Auto) Absolute Nucleated RBC Immature Gran % Nucleated RBC % Sodium 134 L Potassium 4.3 D Chloride 97 L Carbon Dioxide 25.1 Anion Gap 12 BUN 64 H Creatinine 3.2 H D Estim Creat Clear Calc 9.5 L eGFR 14 L* BUN/Creatinine Ratio 20 Glucose 118 H Calculated Osmolality 287 Lactic Acid 0.9 Calcium 8.2 L Corrected Calcium 8.5 Phosphorus 4.5 Magnesium Total Bilirubin AST ALT Alkaline Phosphatase Total Protein Albumin 3.6 Globulin Albumin/Globulin Ratio Random Vancomycin Coccidioides IgM Ab Negative 03/20/25 03/21/25 03/21/25 23:40 04:39 09:24 WBC 22.1 H 20.0 H RBC 2.55 L 2.54 L Hgb 7.7 L 7.6 L Hct 21.9 L* 21.8 L* MCV 86 86 MCH 30.2 29.9 MCHC 35.2 34.9 RDW Std Deviation 48.4 H 48.0 H Plt Count 134 L D 145 Neut % (Auto) 93 H 93 H Lymph % (Auto) 1 L 1 L Rowan % (Auto) 4 4 Eos % (Auto) 0 0 Baso % (Auto) 0 0 Neut # (Auto) 20.4 H 18.5 H Lymph # (Auto) 0.2 L 0.3 L Rowan # (Auto) 0.9 H 0.9 H Eos # (Auto) 0.0 0.0 Baso # (Auto) 0.0 0.0 Immature Gran # (Auto) 0.45 H 0.34 H Absolute Nucleated RBC 0.04 H 0.07 H Immature Gran % 2 H 2 H Nucleated RBC % 0 0 Sodium 137 138 136 Potassium 3.9 3.1 L D 3.4 Chloride 100 99 99 Carbon Dioxide 27.6 29.1 28.3 Anion Gap 9 10 9 BUN 8 L < 5 L 8 L Creatinine 0.9 D 0.5 L 1.0 D Estim Creat Clear Calc 33.7 L 60.7 L 30.6 L eGFR > 60 > 60 56 L BUN/Creatinine Ratio 9 L 10 L 8 L Glucose 100 96 109 H Calculated Osmolality 272 L 272 L 271 L Lactic Acid Calcium 7.7 L 7.6 L 7.9 L Corrected Calcium 8.2 L 8.2 L 8.5 Phosphorus 2.3 L 2.2 L Magnesium 1.4 L Total Bilirubin 0.6 0.5 AST 45 H 50 H ALT 72 H 84 H Alkaline Phosphatase 48 49 Total Protein 5.2 L 5.3 L Albumin 3.4 3.3 L 3.3 L Globulin 1.9 L 2.0 L Albumin/Globulin Ratio 1.7 1.7 Random Vancomycin 7.8 Coccidioides IgM Ab ABG Interpretation ABG results: 03/09/25 03/09/25 03/10/25 07:50 18:22 09:05 ABG pH 7.45 ABG pCO2 39 ABG pO2 289 H ABG HCO3 27 H ABG O2 Saturation 101 H ABG Base Excess 2 VBG pH 7.39 7.49 VBG pCO2 49 37 D VBG pO2 70 H 68 H VBG Base Excess 4 H 5 H 03/11/25 03/12/25 03/16/25 10:09 09:44 03:09 ABG pH 7.40 7.41 ABG pCO2 44 46 ABG pO2 80 L D 97 ABG HCO3 27 H 29 H ABG O2 Saturation 95 98 ABG Base Excess 2 4 H VBG pH 7.45 VBG pCO2 40 VBG pO2 39 D VBG Base Excess 4 H 03/18/25 03/19/25 03/20/25 14:17 08:33 07:12 ABG pH 7.36 7.31 L ABG pCO2 43 38 ABG pO2 66 L 80 L ABG HCO3 24 19 L ABG O2 Saturation 91 95 ABG Base Excess -1 -7 L VBG pH 7.45 VBG pCO2 39 VBG pO2 59 H VBG Base Excess 3 Quality Measures Quality Measures none Advance care planning discussed with:: patient and child Assessment & Plan Assessment Current Active Medications: Generic Name Dose Route Start Last Admin Trade Name Freq PRN Reason Stop Dose Admin Acetaminophen 650 mg 03/09/25 14:41 03/16/25 22:38 Acetaminophen 325 Mg Tablet PO 04/08/25 14:40 650 mg Q6H PRN Administration Mild Pain(1-3) or Fever >100.3 Albuterol 5 mg 03/18/25 15:00 03/21/25 10:30 Albuterol Rt 2.5 Mg/0.5 Ml Nebu INH 04/17/25 14:59 5 mg Q4HRRT SABRINA Administration Atorvastatin Calcium 40 mg 03/09/25 21:00 03/20/25 21:33 Atorvastatin Calcium 20 Mg Tablet PO 04/08/25 20:59 40 mg HS SABRINA Administration Dextrose 25 ml 03/12/25 08:16 Dextrose 50%-Water Inj 50 Ml Syringe IV 04/11/25 08:15 Q15MIN PRN BG 50-70 responsive npo pt Dextrose 50 ml 03/12/25 08:16 Dextrose 50%-Water Inj 50 Ml Syringe IV 04/11/25 08:15 Q15MIN PRN BG <50 OR BG <70 & pt unresponsive Diltiazem HCl 360 mg 03/21/25 09:00 03/21/25 09:47 Diltiazem Cd 120 Mg Capcr PO 04/20/25 08:59 360 mg QDAY SABRINA Administration Glucagon 1 mg 03/12/25 08:16 Glucagon Inj 1 Mg Vial IM Q15MIN PRN BG <70, and no IV access Guaifenesin 200 mg 03/16/25 14:00 03/21/25 05:35 Guaifenesin Syrup 200 Mg/10 Ml Udc PO 04/15/25 13:59 200 mg TID SABRINA Administration Protocol Heparin Sodium (Porcine) 3,300 unit 03/15/25 15:49 03/21/25 04:14 Heparin Sod Inj 1000 Unit/Ml Vial 10 Ml INDWELLCAT 03/29/25 15:48 3,300 unit X1 PRN Administration DIALYSIS Magnesium Sulfate 4 gm in 50 mls @ 12.5 mls/hr 03/21/25 07:23 03/21/25 09:45 Magnesium Sulfate Ivpb IV 03/21/25 11:22 12.5 mls/hr X1 ONE Administration Insulin Human Lispro 0 unit 03/12/25 11:30 03/21/25 09:17 Insulin Lispro (Admelog) 1 Unit/0.01 Ml Unit SC 04/11/25 11:29 Not Given AC SABRINA Protocol Ipratropium [place] 0.5 mg 03/10/25 15:00 03/21/25 10:30 Ipratropium Rt 0.5 Mg/ 2.5 Ml Nebu INH 04/09/25 14:59 0.5 mg Q4HRRT SABRINA Administration Methimazole 5 mg 03/15/25 08:45 03/21/25 05:36 Methimazole 5 Mg Tablet PO 04/14/25 08:44 5 mg TID SABRINA Administration Methylprednisolone Sodium Succinate 40 mg 03/18/25 21:00 03/21/25 09:46 Methylprednisolone Sod Succ 40 Mg Vial IVP 03/25/25 20:59 40 mg BID SABRINA Administration Ondansetron HCl 4 mg 03/09/25 14:41 Ondansetron Inj 2 Mg/Ml Inj 2 Ml IVP 04/08/25 14:40 Q6H PRN NAUSEA OR VOMITING Protocol Pantoprazole Sodium 40 mg 03/17/25 03:00 03/21/25 09:46 Pantoprazole Inj 40 Mg Vial IVP 04/16/25 02:59 40 mg BID SABRINA Administration Breztri (Budesonide, 2 ea 03/13/25 12:00 03/21/25 10:28 Glycopyrrolate And INH 04/12/25 11:59 2 puff Formoterol) BID SABRINA Administration Polyethylene Glycol 17 gm 03/21/25 09:15 03/21/25 09:47 Polyethylene Glycol 17 Gm Packet PO 04/20/25 09:14 17 gm QDAY SABRINA Administration Sennosides 1 tab 03/21/25 09:07 Senna Tablet PO 04/20/25 09:06 QDAY PRN constipation Protocol Sevelamer Carbonate 800 mg 03/20/25 12:00 03/20/25 18:45 Sevelamer Carbonate 800 Mg Tablet PO 04/19/25 11:59 Not Given TIDWM SABRINA Sodium Chloride 3 ml 03/11/25 16:26 03/20/25 18:42 Sodium Chloride Rt Annika 0.9% 3 Ml Nebu INH 04/10/25 16:25 3 ml PRN PRN Administration SOLN Plan Summary:An 84-year-old female patient with past medical history of CHF EF of 60 to 65% March 30, pulmonary artery hypertension, A-fib, CVA with right-sided hemiparesis residual deficit, hypertension, hyperlipidemia, osteoarthritis, osteoporosis, GERD, asthma, moderate to severe aortic stenosis, left atrial dilatation, 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 Patient was upgraded to the ICU secondary to continue to worsen shortness of breath and the need of CRRT. 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 CVS #HFpEF EF of 60 to 65% #Moderate to Severe valve area less than 0.5 cm?, V-max 3.8 patient has history of prolonged hypertension and aortic stenosis. BNP was elevated 1691, echo showed diastolic dysfunction, chest x-ray showed vascular pulmonary congestion, lower extremity edema seen on examination, Recent echocardiogram showed ejection fraction of 60 to 65%, moderate to severe aortic stenosis Plan: Strict in and out, fluid restriction to 1200cc, continue with CRRT patient received 1.5 L fluid removed per this morning #A-fib with RVR/multifocal atrial tachycardia rate controlled #Moderate pulmonary artery hypertension RVSP of 55 mmHg EKG showed irregularly irregular heartbeats, unidentified P waves. Cardiology team was consulted. Plan: Patient tolerating well diltiazem 360 p.o. daily, continue Patient was changed to 240 Dilt by cardiology, uptitrated to 360 again Cardiology consulted, appreciate recommendations Pulmonology #Acute hypoxic respiratory failure most likely secondary to pulmonary congestion, pneumonia, Antonia's granulomatosis flare, less likely severe asthma exacerbation #History of Antonia's granulomatosis #History of asthma on daily inhaler Chest x-ray on 15 March, mild opacity in both lung mason consistent with pneumonia, Multilocular cardiac contour, Mild to moderate vascular congestion. CT scan on 18 March 2025 showed extensive opacity in both lungs with 3 pulmonary nodules were found. Patient P ANCA was 1-20, antiproteinase 316.9 Patient was started on methylprednisolone, multiple courses of antibiotics, recently started on vancomycin and cefepime for MRSA and Pseudomonas coverage. Cocci even though it is less likely as the patient resides in [place] and had only come to visit her daughter who works as a international account representative Influenza, COVID, RSV are negative. Cocci IgM negative IV azithromycin Course Completed (03/09/2025-03/12/2025) & Ceftriaxone 03/10/2025-03/11/2025 Levaquin 250 mg PO QD for possible pneumonia (03/17-03/18/2025), cefepime and vancomycin (03/19-03/21) Plan ? Keep patient on on BiPAP as needed, 3 times daily chest physical therapy, breathing treatment every 4 hours, - continue methylprednisolone 40 mg IV twice daily ? Completed antibiotic therapy, if patient has fever, suspicion of underlying infection started on IV antibiotics. ?Follow CBC, if patient has downtrending hemoglobin there is a possibility that patient is having diffuse alveolar hemorrhages in lung prompting high-dose steroids and rituximab - Repeat chest x-ray as needed GI #History of peritoneal dialysis On examination no rigidity, no signs of discharge around the peritoneal catheter, no spikes of fever, as per daughter who is international account representative she reported no cloudiness of her dialysate. Peritoneal fluid analysis was clear, peritoneal WBC was 3, peritoneal RBCs was 5, peritoneal LDH was less than 14. Plan Follow nephrology recommendations, monitor any signs of peritonitis, peritoneal culture unremarkable #History of 1 episode hematemesis #History of GERD Hematemesis could be secondary to epistaxis, she is on Protonix twice daily at home, hemoglobin stable since admission range between 9-8 most likely secondary to anemia of chronic disease. Plan ? Continue Protonix 40 mg twice daily, continue to monitor hemoglobin daily, GI was consulted, per GI patient has poor respiratory status for further workup, transfuse blood as needed if hemoglobin below 7. #History of chronic constipation resolved - Hold lactulose 60 3 times daily Renal #ESRD on chronic peritoneal dialysis since 2021 Patient usually on peritoneal dialysis at home, she has some episodes of fluid overload in which she needed temporary hemodialysis. This time patient needed hemodialysis as her pulmonary congestion and her symptoms did not improve. Dr. Womack was consulted, hemodialysis was not tolerable by the patient. Patient was upgraded to the ICU for continuous renal replacement therapy. 3 sessions of hemodialysis, removed 1 L, 0.8 L, 1 L respectively during 3 sessions 03/19-received CRRT, 2.5 L removed, 03/20-received CRRT 1.5 L removed Plan -Continue hemodialysis inpatient -Dr. Amezcua counselor aid was consulted will follow on the results. #Hypomagnesemia Magnesium 1.4, will replete #Hyperkalemia, resolved Hem-oncology #Chronic normocytic anemia Patient hemoglobin consistently between 9 and 8, normocytic most likely secondary to her ESRD. Has had 1 episode of hematemesis could be swallowed blood from her epistaxis as the patient has history of Antonia's granulomatosis. Received 10,000 units of Epogen by nephrology team Plan: -Continue to monitor CBC daily. 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 She developed a flare 2018 in [place] was treated with rituximab upper her symptoms did not improve completely at that time however she was improving with peritoneal dialysis slowly. Plan: -Obtain old medical records from her previous velvet cutter and mid level business analyst in [place], -continue methylprednisolone 60 mg twice daily, -consider bronchial lavage for further confirmation of her flare: Discussed with family, family wants intubation as last effort - Transfer to higher level of care for rheumatology workup ID #Acute hypoxic respiratory failure could be secondary to community-acquired pneumonia Patient has history of sick contact at home. TB skin test during this admission negative Plan Continue antibiotics as above, follow-up on repeat culture and sensitivity. Infectious disease consulted, appreciate recommendations Hospital Maintenance: FEN: Renal diet DVT ppx: SCD GI ppx: Protonix IV lines: Hemodialysis catheter, peripheral IVs Valdovinos: None Code status: Full code Dispo: ICU for CRRT, pending transfer Case discussed with Attending Dr. Griggs. Misha Mcgowan PGY2 Disclaimer: This note was dictated by speech recognition. Minor errors in communications specialist may be present due to voice recognition software. Attending Provider Attestation/Addendum pt seen and examined with resident team, agree with above. In brief this is a 84yo F with GPA, heart failure, ERSD, pulmonary edema, and asthma. Today she appears much improved from the past few days. Her lungs have few scattered expiratory wheezes, there is no increase in WOB , no use of accessory muscles, HRIR, tachy, murmur, abd s/nt/bs+, trace edema. Pt remains on steroids with a taper. she had 1.5lts removed with CRRT overnight. Her BP is stable, she does have some RVR this morning. Her diltiazem had been decreased to 240 however it will be increased to 360 once more. Her pulmonary edema seems to be mostly resolved at this point in time. d/w nephrology and pt ok for HD. Transfer for rheumatology and ID initiated and have d/w [facility] the case. There is a high suspicion for reactivation of pts GPA and family resistent to pulse steroids. Rituximab unavailable at the hospital however it is being ordered by pharmacy. all cx are neg and abx stopped today, has been tx with abx for 12 days. There has been a drop in her h/h and ? if this is a result of some suspected DAH occuring from her GPA. discussion of bronchoscopy held with family and that this would entail intubation to have the bronch and they are reluctant for bronch at this time to confirm any DAH. Today she is stable for downgrade to tele. case d/w ICU team labs, imaging , records reviewed ~ 36min required for eval, exam, review, intervention, discussion and formulation of POC for this acutely ill pt
[2025-03-21 11:04] LABS: Cocci Serology, IgG Negative (Negative)
--- NOTE | 2025-03-21 14:53 | PC.SS ---
Update: Patient to be downgraded from ICU to Tele today.
--- NOTE | 2025-03-21 15:07 | PD.RESPRO ---
Documentation for date of: 03/21/25 Subjective Subjective Interval history: Overnight events: No acute events overnight. Patient was seen and examined at bedside. AM vitals and labs reviewed. Again CRRT session completed with the duration of 11 hours and 39 minutes, net fluid removal 1.5 L. Significant improvement in renal function lab values with sodium 138, potassium 3.1, BUN 5, creatinine 0.5, GFR over 60, corrected calcium 8.2, phosphorus 2.2. Cataloging Assistant Dr. Arellano recommended bronchoscopy to rule out alveolar hemorrhage. Patient's family is seeking transfer to a tertiary care center for rheumatology consultation and ID consultation. So far, the patient has been denied transfer to [place], [facility], [facility], and [facility]. Currently pending transfer decision to [facility]. Patient has been downgraded to telemetry due to improvement in renal function lab values and respiratory status. The patient continued to be lethargic during today's visit. The patient continues to have difficulty responding verbally, but does not seem to be having labored respirations. Patient was on 1 L NC and satting 96 to 97% during visit. Patient has no complaints at this time. Review of systems otherwise negative except for what is mentioned above. Exam Vital Signs Temp Pulse Resp BP Pulse Ox O2 Del Method O2 Flow Rate 98.5 F 122 H 31 H 131/82 H 100 Nasal Cannula 1 03/21/25 04:15 03/21/25 14:30 03/21/25 14:30 03/21/25 09:47 03/21/25 14:30 03/20/25 18:29 03/21/25 14:30 FiO2 25 03/20/25 14:19 Narrative Exam Physical Exam: General: Alert, no acute distress. Skin: Warm, dry, intact, no obvious rash. RIJ dialysis catheter area bruised red/purple/brown discoloration. Head: Normocephalic, atraumatic. Eye: Normal conjunctiva, PERRL. Cardiovascular: Regular rate and rhythm, systolic murmur, +S1/S2. Respiratory: Short and shallow breaths on auscultation, respirations unlabored. Gastrointestinal: Soft, nontender, non-distended. No guarding or rebound tenderness. Extremities: No edema, no cyanosis, no clubbing. 2+ radial pulse bilaterally, 2+ pedal pulse bilaterally. Objective Labs 03/22/25 05:50 03/22/25 05:50 Labs: Laboratory Results - last 24 hr 03/19/25 03/20/25 03/20/25 11:17 17:23 23:40 WBC RBC Hgb Hct MCV MCH MCHC RDW Std Deviation Plt Count Neut % (Auto) Lymph % (Auto) Wilkinson % (Auto) Eos % (Auto) Baso % (Auto) Neut # (Auto) Lymph # (Auto) Wilkinson # (Auto) Eos # (Auto) Baso # (Auto) Immature Gran # (Auto) Absolute Nucleated RBC Immature Gran % Nucleated RBC % Sodium 134 L 137 Potassium 4.3 D 3.9 Chloride 97 L 100 Carbon Dioxide 25.1 27.6 Anion Gap 12 9 BUN 64 H 8 L Creatinine 3.2 H D 0.9 D Estim Creat Clear Calc 9.5 L 33.7 L eGFR 14 L* > 60 BUN/Creatinine Ratio 20 9 L Glucose 118 H 100 Calculated Osmolality 287 272 L Calcium 8.2 L 7.7 L Corrected Calcium 8.5 8.2 L Phosphorus 4.5 2.3 L Magnesium Total Bilirubin AST ALT Alkaline Phosphatase Total Protein Albumin 3.6 3.4 Globulin Albumin/Globulin Ratio Random Vancomycin Coccidioides IgG Ab Negative 03/21/25 03/21/25 04:39 09:24 WBC 22.1 H 20.0 H RBC 2.55 L 2.54 L Hgb 7.7 L 7.6 L Hct 21.9 L* 21.8 L* MCV 86 86 MCH 30.2 29.9 MCHC 35.2 34.9 RDW Std Deviation 48.4 H 48.0 H Plt Count 134 L D 145 Neut % (Auto) 93 H 93 H Lymph % (Auto) 1 L 1 L Wilkinson % (Auto) 4 4 Eos % (Auto) 0 0 Baso % (Auto) 0 0 Neut # (Auto) 20.4 H 18.5 H Lymph # (Auto) 0.2 L 0.3 L Wilkinson # (Auto) 0.9 H 0.9 H Eos # (Auto) 0.0 0.0 Baso # (Auto) 0.0 0.0 Immature Gran # (Auto) 0.45 H 0.34 H Absolute Nucleated RBC 0.04 H 0.07 H Immature Gran % 2 H 2 H Nucleated RBC % 0 0 Sodium 138 136 Potassium 3.1 L D 3.4 Chloride 99 99 Carbon Dioxide 29.1 28.3 Anion Gap 10 9 BUN < 5 L 8 L Creatinine 0.5 L 1.0 D Estim Creat Clear Calc 60.7 L 30.6 L eGFR > 60 56 L BUN/Creatinine Ratio 10 L 8 L Glucose 96 109 H Calculated Osmolality 272 L 271 L Calcium 7.6 L 7.9 L Corrected Calcium 8.2 L 8.5 Phosphorus 2.2 L Magnesium 1.4 L Total Bilirubin 0.6 0.5 AST 45 H 50 H ALT 72 H 84 H Alkaline Phosphatase 48 49 Total Protein 5.2 L 5.3 L Albumin 3.3 L 3.3 L Globulin 1.9 L 2.0 L Albumin/Globulin Ratio 1.7 1.7 Random Vancomycin 7.8 Coccidioides IgG Ab ABG Interpretation ABG results: 03/09/25 03/09/25 03/10/25 07:50 18:22 09:05 ABG pH 7.45 ABG pCO2 39 ABG pO2 289 H ABG HCO3 27 H ABG O2 Saturation 101 H ABG Base Excess 2 VBG pH 7.39 7.49 VBG pCO2 49 37 D VBG pO2 70 H 68 H VBG Base Excess 4 H 5 H 03/11/25 03/12/25 03/16/25 10:09 09:44 03:09 ABG pH 7.40 7.41 ABG pCO2 44 46 ABG pO2 80 L D 97 ABG HCO3 27 H 29 H ABG O2 Saturation 95 98 ABG Base Excess 2 4 H VBG pH 7.45 VBG pCO2 40 VBG pO2 39 D VBG Base Excess 4 H 03/18/25 03/19/25 03/20/25 14:17 08:33 07:12 ABG pH 7.36 7.31 L ABG pCO2 43 38 ABG pO2 66 L 80 L ABG HCO3 24 19 L ABG O2 Saturation 91 95 ABG Base Excess -1 -7 L VBG pH 7.45 VBG pCO2 39 VBG pO2 59 H VBG Base Excess 3 Quality Measures Quality Measures none Advance care planning discussed with:: patient Assessment & Plan Assessment Current Active Medications: Generic Name Dose Route Start Last Admin Trade Name Freq PRN Reason Stop Dose Admin Acetaminophen 650 mg 03/09/25 14:41 03/16/25 22:38 Acetaminophen 325 Mg Tablet PO 04/08/25 14:40 650 mg Q6H PRN Administration Mild Pain(1-3) or Fever >100.3 Albuterol 5 mg 03/18/25 15:00 03/21/25 14:28 Albuterol Rt 2.5 Mg/0.5 Ml Nebu INH 04/17/25 14:59 5 mg Q4HRRT SABRINA Administration Atorvastatin Calcium 40 mg 03/09/25 21:00 03/20/25 21:33 Atorvastatin Calcium 20 Mg Tablet PO 04/08/25 20:59 40 mg HS SABRINA Administration Dextrose 25 ml 03/12/25 08:16 Dextrose 50%-Water Inj 50 Ml Syringe IV 04/11/25 08:15 Q15MIN PRN BG 50-70 responsive npo pt Dextrose 50 ml 03/12/25 08:16 Dextrose 50%-Water Inj 50 Ml Syringe IV 04/11/25 08:15 Q15MIN PRN BG <50 OR BG <70 & pt unresponsive Diltiazem HCl 360 mg 03/21/25 09:00 03/21/25 09:47 Diltiazem Cd 120 Mg Capcr PO 04/20/25 08:59 360 mg QDAY SABRINA Administration Glucagon 1 mg 03/12/25 08:16 Glucagon Inj 1 Mg Vial IM Q15MIN PRN BG <70, and no IV access Guaifenesin 200 mg 03/16/25 14:00 03/21/25 14:44 Guaifenesin Syrup 200 Mg/10 Ml Udc PO 04/15/25 13:59 200 mg TID SABRINA Administration Protocol Heparin Sodium (Porcine) 3,300 unit 03/15/25 15:49 03/21/25 04:14 Heparin Sod Inj 1000 Unit/Ml Vial 10 Ml INDWELLCAT 03/29/25 15:48 3,300 unit X1 PRN Administration DIALYSIS Insulin Human Lispro 0 unit 03/12/25 11:30 03/21/25 12:26 Insulin Lispro (Admelog) 1 Unit/0.01 Ml Unit SC 04/11/25 11:29 Not Given AC SABRINA Protocol Ipratropium [place] 0.5 mg 03/10/25 15:00 03/21/25 14:29 Ipratropium Rt 0.5 Mg/ 2.5 Ml Nebu INH 04/09/25 14:59 0.5 mg Q4HRRT SABRINA Administration Methimazole 5 mg 03/15/25 08:45 03/21/25 14:44 Methimazole 5 Mg Tablet PO 04/14/25 08:44 5 mg TID SABRINA Administration Methylprednisolone Sodium Succinate 40 mg 03/18/25 21:00 03/21/25 09:46 Methylprednisolone Sod Succ 40 Mg Vial IVP 03/25/25 20:59 40 mg BID SABRINA Administration Ondansetron HCl 4 mg 03/09/25 14:41 Ondansetron Inj 2 Mg/Ml Inj 2 Ml IVP 04/08/25 14:40 Q6H PRN NAUSEA OR VOMITING Protocol Pantoprazole Sodium 40 mg 03/17/25 03:00 03/21/25 09:46 Pantoprazole Inj 40 Mg Vial IVP 04/16/25 02:59 40 mg BID SABRINA Administration Breztri (Budesonide, 2 ea 03/13/25 12:00 03/21/25 10:28 Glycopyrrolate And INH 04/12/25 11:59 2 puff Formoterol) BID SABRINA Administration Polyethylene Glycol 17 gm 03/21/25 09:15 03/21/25 09:47 Polyethylene Glycol 17 Gm Packet PO 04/20/25 09:14 17 gm QDAY SABRINA Administration Sennosides 1 tab 03/21/25 09:07 Senna Tablet PO 04/20/25 09:06 QDAY PRN constipation Protocol Sevelamer Carbonate 800 mg 03/20/25 12:00 03/20/25 18:45 Sevelamer Carbonate 800 Mg Tablet PO 04/19/25 11:59 Not Given TIDWM SABRINA Sodium Chloride 3 ml 03/11/25 16:26 03/20/25 18:42 Sodium Chloride Rt Annika 0.9% 3 Ml Nebu INH 04/10/25 16:25 3 ml PRN PRN Administration SOLN Plan Mrs. 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 Nephrology was consulted for management of her peritoneal dialysis. Due to concerns of PNA and inadequate HD, patient transferred to ICU on 03/19 for additional respiratory support/monitoring and CRRT. Downgraded to telemetry on 03/21. Pending transfer to tertiary care center initiated on 03/21. #ESRD on Peritoneal Dialysis #ESRD 2/2 Donna's Granulomatosis #Fluid overload status #Anemia #Hyperkalemia, hyperphosphatemia (resolved) - Discontinued nightly peritoneal dialysis 03/15. - Peritoneal dialysis was not sufficient in removing adequate volume. - Permanent dialysis catheter placed 03/15. - Hemodialysis performed 03/15, 03/16, 03/17 - Plan to restart hemodialysis tomorrow (03/22) pending a.m. labs and discussion with family. - CRRT started on 03/19 for continued respiratory concerns even with HD. - CRRT performed 03/19 for 12hrs and 03/20 for 11hrs 39min. - CRRT stopped 03/21 due to renal function lab values returning to WNL and downgrade to telemetry unit. - Procrit 10,000 units once via subQ ordered for anemia. - Will monitor H&H, recommend additional Procrit if no improvement over next several days. - Continue Sevelamer powder 800mg TID - Continue to monitor renal function. - Avoid IV hydration given past history of fluid overload and CHF. - Avoid nephrotoxic drugs and renally adjust medications. - Patient to follow up with outpatient automotive collision estimator Dr. Leo for dialysis once discharged. - Nephrology will continue to follow. Patient was discussed with the Nephrology attending, Dr. Amezcua. Thank you for allowing us to participate in the care of this patient. Rogelio Asher, PGY-1 Attending Provider Attestation/Addendum with assessment and plan and finding of resident. Seen and examined. Labs are reviewed Temo Amezcua MD
--- NOTE | 2025-03-21 15:18 | ESPR_ITS ---
<Statement entered by Yennifer Martinez MD - 04/02/25 17:54> I reviewed above note and agree with findings and plans. I have also personally examined the patient with medicine team and went over assessment and plan with medical team including seo intern and resident physician. Documentation for date of: 03/21/25 Senior resident attestation: Patient evaluated and examined at the bedside, plan of care discussed with rest of the team including my attending physician, except as noted. Received handoff from ICU resident Dr. Mcgowan, who communicated ICU web press roll tender, Dr. Griggs's recommendations. The patient was transferred to ICU for CRRT, as due to generalized weakness and frailty was unable to tolerate hemodialysis well. 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 Improvement noted after continuing antibiotics as well as ultrafiltration with CRRT, noted improvement in chest x-ray as well as oxygen requirements are down to 1 L via nasal cannula. Patient was evaluated in the ICU, currently resting peacefully, asleep but arousable on verbal stimuli, on 1 L nasal cannula oxygen, blood pressure within normal limits. Heart rate fluctuating between 95-120, underlying rhythm A-fib. ? Incoming Inspector recommendations are to stop IV antibiotics as patient has completed 12 days of IV antibiotics for pneumonia. ? Recommend to start high-dose steroids if patient continues to drop hemoglobin due to concern for pulmonary hemorrhages, also recommended to consider rituximab infusion for acute flareup of Antonia's. ? The patient was accepted for transfer at [facility], but family does not want to be transferred to [facility]. ? Consider repeat cultures to guide antibiotic therapy if patient develops fever. Quresh PGY3 Subjective Subjective Interval history: Patient was evaluated at bedside. Patient was downgraded from ICU to telemetry today. Patient was on BiPAP in the ICU, but is now satting well on 1L oxygen FiO2 25. Plan to investigate patient's anemia with iron panel, ferritin, haptoglobin, and vWF panel. CRRT not done per nephrology, Dr. Amezcua due to renal labs returning to normal, appreciate recommendations Possible transfer to [facility] pending. Exam Vital Signs Temp Pulse Resp BP Pulse Ox O2 Del Method O2 Flow Rate 98.5 F 122 H 31 H 131/82 H 100 Nasal Cannula 1 03/21/25 04:15 03/21/25 14:30 03/21/25 14:30 03/21/25 09:47 03/21/25 14:30 03/20/25 18:29 03/21/25 14:30 FiO2 25 03/20/25 14:19 Narrative Exam General Appearance: Alert & Oriented X3, well-nourished female who is lying in bed in mild respiratory distress. HEENT: Skull symmetrical and atraumatic. Conjunctivae pink and moist. Pupils equal, round, reactive to light and accommodation (PERRL). External ear without lesion or discharge. Straight, nares patient, mucosa pink, no discharge. No thyroid nodule appreciated. No cervical lymphadenopathy. Cardio: Normal Rate and Rhythm with S1 and S2 heart sounds. No murmurs or extra heart sounds auscultated. No bruits on carotid auscultation. No peripheral edema or cyanosis. Lungs: Symmetric with good expansion. Chest and back non-tender. Breath sounds vesicular with wheezing. Abdomen: Non-tender, Non-distended, Normal Reactive Bowel Sounds Neuro: Alert, cooperative, oriented to person, place, and time. Speech clear. CN grossly intact. Upper motor strength 5/5 and Lower motor strength 5/5. Sensation intact. Objective Labs 03/21/25 09:24 03/21/25 09:24 Labs: Laboratory Results - last 24 hr 03/19/25 03/20/25 03/20/25 11:17 17:23 23:40 WBC RBC Hgb Hct MCV MCH MCHC RDW Std Deviation Plt Count Neut % (Auto) Lymph % (Auto) [place] % (Auto) Eos % (Auto) Baso % (Auto) Neut # (Auto) Lymph # (Auto) [place] # (Auto) Eos # (Auto) Baso # (Auto) Immature Gran # (Auto) Absolute Nucleated RBC Immature Gran % Nucleated RBC % Sodium 134 L 137 Potassium 4.3 D 3.9 Chloride 97 L 100 Carbon Dioxide 25.1 27.6 Anion Gap 12 9 BUN 64 H 8 L Creatinine 3.2 H D 0.9 D Estim Creat Clear Calc 9.5 L 33.7 L eGFR 14 L* > 60 BUN/Creatinine Ratio 20 9 L Glucose 118 H 100 Calculated Osmolality 287 272 L Calcium 8.2 L 7.7 L Corrected Calcium 8.5 8.2 L Phosphorus 4.5 2.3 L Magnesium Total Bilirubin AST ALT Alkaline Phosphatase Total Protein Albumin 3.6 3.4 Globulin Albumin/Globulin Ratio Random Vancomycin Coccidioides IgG Ab Negative 03/21/25 03/21/25 04:39 09:24 WBC 22.1 H 20.0 H RBC 2.55 L 2.54 L Hgb 7.7 L 7.6 L Hct 21.9 L* 21.8 L* MCV 86 86 MCH 30.2 29.9 MCHC 35.2 34.9 RDW Std Deviation 48.4 H 48.0 H Plt Count 134 L D 145 Neut % (Auto) 93 H 93 H Lymph % (Auto) 1 L 1 L [place] % (Auto) 4 4 Eos % (Auto) 0 0 Baso % (Auto) 0 0 Neut # (Auto) 20.4 H 18.5 H Lymph # (Auto) 0.2 L 0.3 L [place] # (Auto) 0.9 H 0.9 H Eos # (Auto) 0.0 0.0 Baso # (Auto) 0.0 0.0 Immature Gran # (Auto) 0.45 H 0.34 H Absolute Nucleated RBC 0.04 H 0.07 H Immature Gran % 2 H 2 H Nucleated RBC % 0 0 Sodium 138 136 Potassium 3.1 L D 3.4 Chloride 99 99 Carbon Dioxide 29.1 28.3 Anion Gap 10 9 BUN < 5 L 8 L Creatinine 0.5 L 1.0 D Estim Creat Clear Calc 60.7 L 30.6 L eGFR > 60 56 L BUN/Creatinine Ratio 10 L 8 L Glucose 96 109 H Calculated Osmolality 272 L 271 L Calcium 7.6 L 7.9 L Corrected Calcium 8.2 L 8.5 Phosphorus 2.2 L Magnesium 1.4 L Total Bilirubin 0.6 0.5 AST 45 H 50 H ALT 72 H 84 H Alkaline Phosphatase 48 49 Total Protein 5.2 L 5.3 L Albumin 3.3 L 3.3 L Globulin 1.9 L 2.0 L Albumin/Globulin Ratio 1.7 1.7 Random Vancomycin 7.8 Coccidioides IgG Ab ABG Interpretation ABG results: 03/09/25 03/09/25 03/10/25 07:50 18:22 09:05 ABG pH 7.45 ABG pCO2 39 ABG pO2 289 H ABG HCO3 27 H ABG O2 Saturation 101 H ABG Base Excess 2 VBG pH 7.39 7.49 VBG pCO2 49 37 D VBG pO2 70 H 68 H VBG Base Excess 4 H 5 H 03/11/25 03/12/25 03/16/25 10:09 09:44 03:09 ABG pH 7.40 7.41 ABG pCO2 44 46 ABG pO2 80 L D 97 ABG HCO3 27 H 29 H ABG O2 Saturation 95 98 ABG Base Excess 2 4 H VBG pH 7.45 VBG pCO2 40 VBG pO2 39 D VBG Base Excess 4 H 03/18/25 03/19/25 03/20/25 14:17 08:33 07:12 ABG pH 7.36 7.31 L ABG pCO2 43 38 ABG pO2 66 L 80 L ABG HCO3 24 19 L ABG O2 Saturation 91 95 ABG Base Excess -1 -7 L VBG pH 7.45 VBG pCO2 39 VBG pO2 59 H VBG Base Excess 3 Quality Measures Quality Measures none Advance care planning discussed with:: patient Assessment & Plan Assessment Current Active Medications: Generic Name Dose Route Start Last Admin Trade Name Freq PRN Reason Stop Dose Admin Acetaminophen 650 mg 03/09/25 14:41 03/16/25 22:38 Acetaminophen 325 Mg Tablet PO 04/08/25 14:40 650 mg Q6H PRN Administration Mild Pain(1-3) or Fever >100.3 Albuterol 5 mg 03/18/25 15:00 03/21/25 14:28 Albuterol Rt 2.5 Mg/0.5 Ml Nebu INH 04/17/25 14:59 5 mg Q4HRRT SABRINA Administration Atorvastatin Calcium 40 mg 03/09/25 21:00 03/20/25 21:33 Atorvastatin Calcium 20 Mg Tablet PO 04/08/25 20:59 40 mg HS SABRINA Administration Dextrose 25 ml 03/12/25 08:16 Dextrose 50%-Water Inj 50 Ml Syringe IV 04/11/25 08:15 Q15MIN PRN BG 50-70 responsive npo pt Dextrose 50 ml 03/12/25 08:16 Dextrose 50%-Water Inj 50 Ml Syringe IV 04/11/25 08:15 Q15MIN PRN BG <50 OR BG <70 & pt unresponsive Diltiazem HCl 360 mg 03/21/25 09:00 03/21/25 09:47 Diltiazem Cd 120 Mg Capcr PO 04/20/25 08:59 360 mg QDAY SABRINA Administration Glucagon 1 mg 03/12/25 08:16 Glucagon Inj 1 Mg Vial IM Q15MIN PRN BG <70, and no IV access Guaifenesin 200 mg 03/16/25 14:00 03/21/25 14:44 Guaifenesin Syrup 200 Mg/10 Ml Udc PO 04/15/25 13:59 200 mg TID SABRINA Administration Protocol Heparin Sodium (Porcine) 3,300 unit 03/15/25 15:49 03/21/25 04:14 Heparin Sod Inj 1000 Unit/Ml Vial 10 Ml INDWELLCAT 03/29/25 15:48 3,300 unit X1 PRN Administration DIALYSIS Insulin Human Lispro 0 unit 03/12/25 11:30 03/21/25 12:26 Insulin Lispro (Admelog) 1 Unit/0.01 Ml Unit SC 04/11/25 11:29 Not Given AC SABRINA Protocol Ipratropium [place] 0.5 mg 03/10/25 15:00 03/21/25 14:29 Ipratropium Rt 0.5 Mg/ 2.5 Ml Nebu INH 04/09/25 14:59 0.5 mg Q4HRRT SABRINA Administration Methimazole 5 mg 03/15/25 08:45 03/21/25 14:44 Methimazole 5 Mg Tablet PO 04/14/25 08:44 5 mg TID SABRINA Administration Methylprednisolone Sodium Succinate 40 mg 03/18/25 21:00 03/21/25 09:46 Methylprednisolone Sod Succ 40 Mg Vial IVP 03/25/25 20:59 40 mg BID SABRINA Administration Ondansetron HCl 4 mg 03/09/25 14:41 Ondansetron Inj 2 Mg/Ml Inj 2 Ml IVP 04/08/25 14:40 Q6H PRN NAUSEA OR VOMITING Protocol Pantoprazole Sodium 40 mg 03/17/25 03:00 03/21/25 09:46 Pantoprazole Inj 40 Mg Vial IVP 04/16/25 02:59 40 mg BID SABRINA Administration Breztri (Budesonide, 2 ea 03/13/25 12:00 03/21/25 10:28 Glycopyrrolate And INH 04/12/25 11:59 2 puff Formoterol) BID SABRINA Administration Polyethylene Glycol 17 gm 03/21/25 09:15 03/21/25 09:47 Polyethylene Glycol 17 Gm Packet PO 04/20/25 09:14 17 gm QDAY SABRINA Administration Sennosides 1 tab 03/21/25 09:07 Senna Tablet PO 04/20/25 09:06 QDAY PRN constipation Protocol Sevelamer Carbonate 800 mg 03/20/25 12:00 03/20/25 18:45 Sevelamer Carbonate 800 Mg Tablet PO 04/19/25 11:59 Not Given TIDWM SABRINA Sodium Chloride 3 ml 03/11/25 16:26 03/20/25 18:42 Sodium Chloride Rt Annika 0.9% 3 Ml Nebu INH 04/10/25 16:25 3 ml PRN PRN Administration SOLN Plan Plan Patient is an 84-year-old female with a past medical history CHF HFpEF 55 to 60% (11/23/2024), systolic dysfunction, moderate PAH 55, moderate to severe with V-max 3.8, ESRD status post peritoneal dialysis dialysis, chronic asthma since early 20s, 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 #Acute Anemia Patient FOBT positive overnight 03/17 Pertinent labs: 03/21 MCV 86 RBC 2.54 Hgb 7.6 Hct 21.8 Plan: -GI consult, Dr. 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 Patient's family noticed the patient wheezing while receiving dialysis and called EMS. While in the emergency room department, several episode of spO2 80s on nasal cannula-->transitioned to Bipap. While in ER, increased work of breathing, RR high 30s/40s with abdominal breathing noted, increase in FiO 10-->30. Repeat ABG pH 7.45, pO2 289, HC03 27-->decrease in FIO2 to 20. Daughter at bedside noted an URI several days ago and is concern this may have triggered current exacerbation. Patient has already received antibiotics, azithromycin Course Completed (03/09/2025-03/12/2025) & Ceftriaxone 03/10/2025- 03/11/2025 Levaquin 250 mg PO QD for possible pneumonia (03/17-03/18/2025. Noted improvement in chest imaging following hemodialysis, but persistent infiltrate right lung, possibly pneumonia, hospital-acquired. Patient stopped vancomycin and cefepime after 12 days per ICU, Dr. Griggs recommendation. Sputum cultures ordered. Plan: - Transferred from ICU to telemetry today ? Every 4 hours nebulizations ? Chest physiotherapy ? Guaifenesin 200 mg 3 times daily ? Continue Methylprednisolone 40 twice daily ? Follow sputum cultures ? Blood glass 03/19: pH 7.36 pCO2 43 pO2 66 HCO3 24 O2 sat 91 -CXR 03/20: Demonstrated right upper lobe pneumonia; stopped antibiotics per ICU recommendation, Dr. 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 Arellano, for possible bronchoscopy to investigate alveolar hemorrhage, appreciate recommendations -Possible to start steroids for long-term management and rituximab infusion for short-term flare-ups per ICU recommendations, Dr. Griggs ? IgE levels within normal limits, antibody levels and serology for Antonia's granulomatosis: 03/11 titers c-ANCA 1:20, Anti-Proteinase III 16.9, may be candidate for steroids, #Acute on Chronic Congestive Heart Failure, worsening #CHF HFpEF 60-65% (03/12/2025) #Mild Pulmonary Vascular Congestion #Moderate to Severe Aortic Stenosis, AV vmax 3.8 m #Severe Mitral Regurgitation #Moderate PAH, 55 mmHg Patient likely acute on chronic congestive heart failure this, may only be mild exacerbation as pulmonary vascular congestion was less prominent as compared to other episode. Previous CHF exacerbation BNP 1691.Acute on chronic CHF exacerbation likely triggered by asthma exacerbation. Diagnostics: Echo (03/12/2025): Normal LV size and function. EF 60-65%. Diastolic dysfunction present but cannot be graded due to arrhythymia.Normal RV size and function. Estimated RVSP moderately elevated RVSP 50-55 mm hg.Moderate to Severe . AV vmax 3.8 m/s, Mean PG 38 mm hg. LATRICE 0.5 sq cm. -BNP 03/09 345; 03/15 1608 -Chest x-ray (03/10/2025): Mild chronic heart failure pattern, prominent vascular congestion-overall mild chornic heart failure -Chest x-ray (03/16/2025): Chronic heart failure pattern with vascular congestion, possible repeat CXR Plan: -Patient started on bipap -Strict Ins and Outs -Fluid Restrictions 1800 -Oxygen support -Cardiology consult Dr. Campa, recommend changing to hemodialysis from peritoneal dialysis #ESRD, Hemodialysis #Periotoneal Dialysis, Stopped #ESRD secondary to Granulomatosis Per patient history, follows Dr. Amezcua and Dr. Coley. Patient developed ESRD several years ago likely secondary to Granulomatosis. Consult nephrology for scheduled daily dialysis. Plan -Possible restart hemodialysis tomorrow -03/19 CRRT removed 2.5L of fluid; 03/20 CRRT removed 1.5L of fluid; 03/21 CRRT not done -Hemodialysis 03/16: removed 800 mL, 03/17 1.0 L, 03/18 no dialysis -Strict in and outs. --10,000 unit ProCrit Epoetin-Andrew given 03/19 -Avoid nephrotoxins, consider renal dosing -Nephrology Consulted, Dr. Amezcua, appreciate recommendations. -Peritoneal fluid culture: no growth #Hyperkalemia, resolved #Hyperphosphatemia, resolved Patient had 03/20 overnight potassium of 6.6 treated to 5.9 with Calcium Gluconate 1 g Pertinent labs: Potassium downtrending from 5.9 on 03/20 to 3.4 on 03/21; Phosphorus from 4.5 03/20 to 2.2 03/21 Patient had 03/20 overnight potassium of 6.6 treated to 5.9 with Calcium Gluconate 1 g Plan: -Continue to monitor renal panel and electrolytes -Recommended Sevelamer powder 800 mg TID for hyperphospatemia, per Nephrology Dr. Amezcua, appreciate recommendations #Constipation Patient has not been able to stool consistently, producing hard, pellet-like stool. Patient has been given senna, docusate, lactulose, glycerin. KUB negative for obstructive patter. Plan: -Continue lactulose 60 mg PO TID PRN -Oil enema, followed by possible fecal disimpaction if necessary #Concern for Hyperthyroidism Noted suppressed TSH and elevated T4 levels, limited utility of thyroid function test during acute illness and hospitalization. the patient will eventually require repeat thyroid function test once discharged to confirm thyroid disorders. Also patient has longstanding history of MAT likely secondary to pulmonary disorder, less likely influenced by thyroid. -Thyroid US: bilateral vascular thyroid nodules, consider fine needle aspiration; 03/15 TSH 0.02 T4 1.62 -03/11 TPO 1 TSI 89 -Chest CT 03/18 demonstrated right thyroidmegaly with multiple right lobe nodules -Repeat thyroid function testing in 3 to 4 weeks after discharge, and follow-up with polymer scientist -Continue methimazole 5 mg PO TID #MAT #Atrial Fibrillation, less likely #EKG Abnormalities Patient has a past medical history of previous reported Atrial Fibrillation, per daughter, was told it was less likely atrial fibrillation, decision was made for no Eliquis and only Plavix on board for history of CVA. This EKG read A.fib w/ rvr but not all leads irregular and some noted with possible p waves. r waves present, no deep q waves noted. V1/V2 possible t wave abnormalities. 03/14/2025 EKG ordered, noted HR 100 likely MAT, likely secondary to levalbuterol. Consider decreasing Levalbuterol doses as patient's work of breathing improves. 03/20 EKG demonstrated sinus rhythm and no current arrhythmia's Plan: -Continue 360 mg PO QD for tachycardia per cardiology recommendation Dr. Olivares -AVOID BETA BLOCKERS GIVEN ASTHMA EXACERBATION #Mild Transaminitis #Possible Hepatopulmonary Syndrome Pertinent labs: 03/09 AST/ALT 46/46; 03/11: 37/63; 03/14: 36/105; 03/16: 48/111 03/17: 49/96 03/19: 37/70; 03/21 50/84 Alk Phos 49 03/20 Liver US: CBD 0.4 cm Pancreatic Head 2.5 cm 11.9 cm fatty infiltration of liver normal hepatopedal flow Plan: Monitor and trend liver enzymes if concern, consider hepatitis panel Possible hepatopulmonary syndrome, due to potential fluid overload seen on CXR 03/16 #Mild Troponemia #NSTEMI, type II likely demand ischemia Mild elevation in Troponin likely in the setting of demand ischemia from asthma exacerbation. Denied chest pain, palpitations, or chest pressure. No st elevation noted. Plan -Repeat Troponin 03/10 peaked at 0.141. #Single Episode of Hematemsis #Normocytic Normochromic Anemia Pertinent lab values 03/15 MCV 84 Hgb 9.8 Hct 27.6 RBC 3.27 03/16 MCV 87 Hgb 9.5 Hct 27.8 RBC 3.19 Given past medical history of GERD, consider gastric ulcers-given reported coffee ground emesis vs Granulomatosis flare vs lower GI bleed. Plan: -Monitor hgb >7 goal -Consider occult blood AM, if worsening drop -Consider gastroenterology consult with Dr. Abraham, if repeat episodes of coffee ground emesis #History of CVA Past medical history of CVA Plan -plavix given coffee ground emesis. #GERD #Gastritis (?) Per the patient's daughter, the patient recently experienced coffee ground emesis w/ history of GERD. Plan: Continue IV protonix 40 mg BID #history of Fracture Neck of Right Femur Patient underwent surgical repair of closed right hip neck fracture on 12/01/[address] Lee Plan: Monitor for possible rehabilitation DVT prophylaxis: No DVT prophylaxis in setting of suspected GI bleed and anemia GI prophylaxis: IV Protonix 40 mg BID Diet: Renal Diet Lines: Peripheral IV Code status: Full code Case reviewed with attending Dr. Martinez and senior resident Dr. Miller. Nneka Sena MS-4 - The patient's plan was discussed with attending Dr. Juan Neely MD Internal Medicine PGY-3 Attending Provider Attestation/Addendum 84-year-old female with multiple comorbidities including heart failure with preserved EF with EF 55-60%, severe aortic stenosis with V-max 3.8, pulmonary hypertension, granulomatosis with polyangiitis with subsequent end-stage renal disease on peritoneal dialysis history of ischemic CVA with right-sided hemiparesis, hypertension, hyperlipidemia presented to the ER with shortness of breath found to have acute hypoxic respiratory failure multifactorial including asthma exacerbation and fluid overload state. Initially, patient did require BiPAP and advised to continue IV steroids, IV antibiotic therapy and plan for peritoneal dialysis. Furthermore, patient also has moderate to severe aortic stenosis with pulmonary arterial hypertension and plan to consult cardiology. Overnight, patient respiratory status improving currently on 10 L oxy mask. Discussed case with pulmonary and nephrology team and plan for a TDC placement for possible hemodialysis initiation. In addition, plan to continue IV steroids, IV antibiotic and peritoneal dialysis. Appreciate cardiology, pulmonary and nephrology input. I reviewed above note and agree with findings and plans. I have also personally examined the patient with medicine team and went over assessment and plan with medical team including seo intern and resident physician.
--- NOTE | 2025-03-21 15:53 | PC.RT ---
Pt unable to tolerate CPT with vest, acapella is at bedside being used by pt with assistance.
--- NOTE | 2025-03-21 16:41 | ESPR_ITS ---
Documentation for date of: 03/21/25 Subjective Subjective Interval history: Patient seen and examined at bedside. Patient shortness of breath has been improving, no use of accessory muscles, and primary team did consult pulmonary. Now on 1L NC. Pulmonary consultation was done with Dr. 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 On high-dose steroids along with nebulizations. Also reviewed her xray and feel there is fluid overload also and recommended to change to HD as PD does not work well after few years. Instrumentation Controls Engineer at [facility] failed to find extrapulmonary causes of dyspnea and was discovered to have . GPA was in remission for many years after initial diagnosis in [place] treated with prednisone and methotrexate 25 years ago , renal disease manifested later [facility] biopsy was inconclusive and repeat biopsy at [facility] [place] showed findings consistent with GPA, started on rituximab and steroid used but progressed to ESRD over time around 2020 Recommended hemodialysis previously by me also during last admission but daughter, sons who are the caregivers were not ready for it. Other vitals are stable, creatinine at 6.7, and cracles appreciated throughout the lung mason. Will continue to monitor closely and fluid management as per nephrology as patient on dialysis. Abnormal thyroid function tests and primary team ordered further lab tests; ultrasound of the thyroid revealed bilateral vascular solid thyroid nodules, primary team may consider ultrasound-guided fine-needle aspiration of both nodules. On 03/13/2025 Dr. Olivares had about 30 minutes discussion with the patient's daughter regarding starting the patient on HD, at least for couple of months, and she reported she would decide about it with further discussion with other family members and decide about HD. Finally, on 03/15/2025, patient's family agreed for hemodialysis. After successful placement of IR hemodialysis catheter, she is undergoing hemodialysis session this afternoon. 03/20/2025: Patient is currently on intermittent high flow nasal cannula and BiPAP, labs revealing mild worsening in white count to 20.6. The patient's cANCA titre is 1:20 and antiproteinase [address] Arellano recommended bronchoscopy to rule out any kind of alveolar hemorrhage. The patient was started on CRRT by nephrology. However, patient family members were concerned regarding Antonia's granulomatosis flareup, and wished to proceed with flare up treatment with rituximab and high-dose steroid, as previously the patient had received this treatment during flareup and had improved. Finally, the family members decided to transfer the patient to tertiary referral center for higher level of care. We will continue with diltiazem CD to 360 mg daily due to concern regarding tachycardia. 03/21/2025: The patient is pending transfer to tertiary care center for further management of flare of of Antonia's granulomatosis, and respiratory distress. However, the patient's respiratory distress has significantly been improving since yesterday evening. Currently the patient is saturating 95% on 1 L NC. No use of accessory muscle seen. ICU team was discussing about placing the patient on pulse steroid therapy, but they did not. She is being continued on CRRT. We will continue with diltiazem CD 360 mg daily for tachycardia. Recommended to keep the magnesium and potassium greater than 2 and 4 respectively at all the time. Exam Vital Signs Temp Pulse Resp BP Pulse Ox O2 Del Method O2 Flow Rate 98.2 F 134 H 26 H 107/76 94 L Nasal Cannula 1 03/21/25 12:00 03/21/25 15:03/21/25 15:03/21/25 15:03/21/25 15:01 03/21/25 12:00 03/21/25 14:30 FiO2 25 03/20/25 14:19 Narrative Exam General: Alert and oriented x3. In no acute distress. Eyes: Pupils are equal and reactive to light bilaterally. HEENT: Atraumatic, normocephalic. No JVD noted. Mucosa moist. Cardiovascular: Normal S1 and soft S2,. Tachycardic, 3/6 ejection systolic murmur heard at aortic area, 3/6 holosystolic murmur heard on the mitral area and parasternal area, trace peripheral pitting edema noted. Respiratory: Currently saturating 94% on 1 L NC, no accessory respiratory muscle use appreciated, bilateral air entry present, severe expiratory wheezing noted. Crackles improved Abdomen: Soft, nontender, nondistended. Skin: No rash. Warm to touch. Musculoskeletal: No gross injuries. Able to move all 4 extremities. Neuro: Alert and oriented x3. No focal neuro deficits. Psych: Fairly good mood. Objective Labs 03/21/25 09:24 03/21/25 09:24 Labs: Laboratory Results - last 24 hr 03/19/25 03/20/25 03/20/25 11:17 17:23 23:40 WBC RBC Hgb Hct MCV MCH MCHC RDW Std Deviation Plt Count Neut % (Auto) Lymph % (Auto) Roberts % (Auto) Eos % (Auto) Baso % (Auto) Neut # (Auto) Lymph # (Auto) Roberts # (Auto) Eos # (Auto) Baso # (Auto) Immature Gran # (Auto) Absolute Nucleated RBC Immature Gran % Nucleated RBC % Sodium 134 L 137 Potassium 4.3 D 3.9 Chloride 97 L 100 Carbon Dioxide 25.1 27.6 Anion Gap 12 9 BUN 64 H 8 L Creatinine 3.2 H D 0.9 D Estim Creat Clear Calc 9.5 L 33.7 L eGFR 14 L* > 60 BUN/Creatinine Ratio 20 9 L Glucose 118 H 100 Calculated Osmolality 287 272 L Calcium 8.2 L 7.7 L Corrected Calcium 8.5 8.2 L Phosphorus 4.5 2.3 L Magnesium Total Bilirubin AST ALT Alkaline Phosphatase Total Protein Albumin 3.6 3.4 Globulin Albumin/Globulin Ratio Random Vancomycin Coccidioides IgG Ab Negative 03/21/25 03/21/25 04:39 09:24 WBC 22.1 H 20.0 H RBC 2.55 L 2.54 L Hgb 7.7 L 7.6 L Hct 21.9 L* 21.8 L* MCV 86 86 MCH 30.2 29.9 MCHC 35.2 34.9 RDW Std Deviation 48.4 H 48.0 H Plt Count 134 L D 145 Neut % (Auto) 93 H 93 H Lymph % (Auto) 1 L 1 L Roberts % (Auto) 4 4 Eos % (Auto) 0 0 Baso % (Auto) 0 0 Neut # (Auto) 20.4 H 18.5 H Lymph # (Auto) 0.2 L 0.3 L Roberts # (Auto) 0.9 H 0.9 H Eos # (Auto) 0.0 0.0 Baso # (Auto) 0.0 0.0 Immature Gran # (Auto) 0.45 H 0.34 H Absolute Nucleated RBC 0.04 H 0.07 H Immature Gran % 2 H 2 H Nucleated RBC % 0 0 Sodium 138 136 Potassium 3.1 L D 3.4 Chloride 99 99 Carbon Dioxide 29.1 28.3 Anion Gap 10 9 BUN < 5 L 8 L Creatinine 0.5 L 1.0 D Estim Creat Clear Calc 60.7 L 30.6 L eGFR > 60 56 L BUN/Creatinine Ratio 10 L 8 L Glucose 96 109 H Calculated Osmolality 272 L 271 L Calcium 7.6 L 7.9 L Corrected Calcium 8.2 L 8.5 Phosphorus 2.2 L Magnesium 1.4 L Total Bilirubin 0.6 0.5 AST 45 H 50 H ALT 72 H 84 H Alkaline Phosphatase 48 49 Total Protein 5.2 L 5.3 L Albumin 3.3 L 3.3 L Globulin 1.9 L 2.0 L Albumin/Globulin Ratio 1.7 1.7 Random Vancomycin 7.8 Coccidioides IgG Ab ABG Interpretation ABG results: 03/09/25 03/09/25 03/10/25 07:50 18:22 09:05 ABG pH 7.45 ABG pCO2 39 ABG pO2 289 H ABG HCO3 27 H ABG O2 Saturation 101 H ABG Base Excess 2 VBG pH 7.39 7.49 VBG pCO2 49 37 D VBG pO2 70 H 68 H VBG Base Excess 4 H 5 H 03/11/25 03/12/25 03/16/25 10:09 09:44 03:09 ABG pH 7.40 7.41 ABG pCO2 44 46 ABG pO2 80 L D 97 ABG HCO3 27 H 29 H ABG O2 Saturation 95 98 ABG Base Excess 2 4 H VBG pH 7.45 VBG pCO2 40 VBG pO2 39 D VBG Base Excess 4 H 03/18/25 03/19/25 03/20/25 14:17 08:33 07:12 ABG pH 7.36 7.31 L ABG pCO2 43 38 ABG pO2 66 L 80 L ABG HCO3 24 19 L ABG O2 Saturation 91 95 ABG Base Excess -1 -7 L VBG pH 7.45 VBG pCO2 39 VBG pO2 59 H VBG Base Excess 3 Quality Measures Quality Measures none Advance care planning discussed with:: patient and child Assessment & Plan Assessment Current Active Medications: Generic Name Dose Route Start Last Admin Trade Name Freq PRN Reason Stop Dose Admin Acetaminophen 650 mg 03/09/25 14:41 03/16/25 22:38 Acetaminophen 325 Mg Tablet PO 04/08/25 14:40 650 mg Q6H PRN Administration Mild Pain(1-3) or Fever >100.3 Albuterol 5 mg 03/18/25 15:00 03/21/25 14:28 Albuterol Rt 2.5 Mg/0.5 Ml Nebu INH 04/17/25 14:59 5 mg Q4HRRT SABRINA Administration Atorvastatin Calcium 40 mg 03/09/25 21:00 03/20/25 21:33 Atorvastatin Calcium 20 Mg Tablet PO 04/08/25 20:59 40 mg HS SABRINA Administration Dextrose 25 ml 03/12/25 08:16 Dextrose 50%-Water Inj 50 Ml Syringe IV 04/11/25 08:15 Q15MIN PRN BG 50-70 responsive npo pt Dextrose 50 ml 03/12/25 08:16 Dextrose 50%-Water Inj 50 Ml Syringe IV 04/11/25 08:15 Q15MIN PRN BG <50 OR BG <70 & pt unresponsive Diltiazem HCl 360 mg 03/21/25 09:00 03/21/25 09:47 Diltiazem Cd 120 Mg Capcr PO 04/20/25 08:59 360 mg QDAY SABRINA Administration Glucagon 1 mg 03/12/25 08:16 Glucagon Inj 1 Mg Vial IM Q15MIN PRN BG <70, and no IV access Guaifenesin 200 mg 03/16/25 14:00 03/21/25 14:44 Guaifenesin Syrup 200 Mg/10 Ml Udc PO 04/15/25 13:59 200 mg TID SABRINA Administration Protocol Heparin Sodium (Porcine) 3,300 unit 03/15/25 15:49 03/21/25 04:14 Heparin Sod Inj 1000 Unit/Ml Vial 10 Ml INDWELLCAT 03/29/25 15:48 3,300 unit X1 PRN Administration DIALYSIS Insulin Human Lispro 0 unit 03/12/25 11:30 03/21/25 12:26 Insulin Lispro (Admelog) 1 Unit/0.01 Ml Unit SC 04/11/25 11:29 Not Given AC SABRINA Protocol Ipratropium Palmetto 0.5 mg 03/10/25 15:00 03/21/25 14:29 Ipratropium Rt 0.5 Mg/ 2.5 Ml Nebu INH 04/09/25 14:59 0.5 mg Q4HRRT SABRINA Administration Methimazole 5 mg 03/15/25 08:45 03/21/25 14:44 Methimazole 5 Mg Tablet PO 04/14/25 08:44 5 mg TID SABRINA Administration Methylprednisolone Sodium Succinate 40 mg 03/18/25 21:00 03/21/25 09:46 Methylprednisolone Sod Succ 40 Mg Vial IVP 03/25/25 20:59 40 mg BID SABRINA Administration Ondansetron HCl 4 mg 03/09/25 14:41 Ondansetron Inj 2 Mg/Ml Inj 2 Ml IVP 04/08/25 14:40 Q6H PRN NAUSEA OR VOMITING Protocol Pantoprazole Sodium 40 mg 03/17/25 03:00 03/21/25 09:46 Pantoprazole Inj 40 Mg Vial IVP 04/16/25 02:59 40 mg BID SABRINA Administration Breztri (Budesonide, 2 ea 03/13/25 12:00 03/21/25 10:28 Glycopyrrolate And INH 04/12/25 11:59 2 puff Formoterol) BID SABRINA Administration Polyethylene Glycol 17 gm 03/21/25 09:15 03/21/25 09:47 Polyethylene Glycol 17 Gm Packet PO 04/20/25 09:14 17 gm QDAY SABRINA Administration Sennosides 1 tab 03/21/25 09:07 Senna Tablet PO 04/20/25 09:06 QDAY PRN constipation Protocol Sevelamer Carbonate 800 mg 03/20/25 12:00 03/20/25 18:45 Sevelamer Carbonate 800 Mg Tablet PO 04/19/25 11:59 Not Given TIDWM SABRINA Sodium Chloride 3 ml 03/11/25 16:26 03/20/25 18:42 Sodium Chloride Rt Annika 0.9% 3 Ml Nebu INH 04/10/25 16:25 3 ml PRN PRN Administration SOLN Plan A 84-year-old female with a past medical history of severe aortic stenosis with a valve area of 0.5 cm?, moderate MR and TR, moderate PAH, preserved EF with diastolic dysfunction, end-stage renal disease on peritoneal dialysis for the last 4 to 5 years, Antonia's granulomatosis diagnosed 25 years ago, chronic severe asthma since her early 20s, history of multifocal atrial tachycardia, 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 1. Acute hypoxic respiratory failure mostly secondary to fluid overload 2/2 failing PD, and 2. Acute asthma exacerbation 3. Severe aortic stenosis with a valve area less than 0.5 cm? 4. End-stage renal disease on peritoneal dialysis for past 4 to 5 years mostly secondary to Antonia's granulomatosis 5. Abnormal thyroid function tests 6. Multifocal atrial tachycardia 7. Valvular heart disease with severe aortic stenosis, moderate MR and TR 8. Moderate pulmonary artery pretension with an RVSP of 55 mmHg 9. Chronic diastolic congestive heart failure 10. 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 Patient presented with acute hypoxic respiratory failure and and was diagnosed with asthma exacerbation. Patient started on high-dose steroids with Solu- Medrol 60 mg every every 8 hours decreased to every 12 hours, along with nebulizations and inhalers. Still continues to be on oxygen and now use of any accessory muscles appreciated. Combination of upper respiratory tract symptoms along with recent emotional stress. Also on IV antibiotics. Patient has been tachycardic On arrival and EKG reviewed. EKG shows irregularly irregular rhythm but most of the time is 100 to 130 bpm which is typical of multifocal atrial tachycardia. Has irregularly irregular rhythm with varying PP and NV intervals. 3 distinct P wave morphologies are also seen in the lead II. Also patient has underlying lung disease which could contribute's significantly for the multifocal atrial tachycardia Continue rate control with diltiazem 240 mg once daily as no beta-pratik can be given because of the as above. Will uptitrate the diltiazem to 360 mg once daily and if rate is not well-controlled. No anticoagulation required. Patient is mildly elevated troponins at 0.34 and 0.145. Troponin elevation mostly secondary to NSTEMI type II in the setting of supply/demand mismatch. Patient denies any Chest pain or chest pressure at the present moment. EKG showed marked without any acute ST-T changes history of ischemia. Patient is scheduled to have left and right heart cardiac catheterization on Wednesday as outpatient but cannot be done because of her acute hypoxic respiratory failure at the present point of time. Continue Plavix for now and high intensity statin. No beta-pratik because of asthma. No heparin drip required. Patient does have severe as noted above with a valve area of less than 0.5 cm?. Patient also has moderate MR and TR with moderate PAH noted on the previous echocardiogram in November 2024. Workup started as outpatient for the severe and as noted previously was scheduled for the left heart cardiac catheterization and right heart cardiac catheterization which will need to be postponed for now given her acute hypoxic respiratory failure. Will continue further workup of the severe as outpatient. 03/17/2025: Patient seen and examined at bedside. Patient continues to be short of breath, using accessory muscles, and primary team did consult pulmonary. Now on 2L NC. Pulmonary consultation was done with Dr. 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 On high-dose steroids along with nebulizations. Also reviewed her xray and feel there is fluid overload also and recommended to change to HD as PD does not work well after few years. Instrumentation Controls Engineer at [facility] failed to find extrapulmonary causes of dyspnea and was discovered to have . GPA was in remission for many years after initial diagnosis in [place] treated with prednisone and methotrexate 25 years ago , renal disease manifested later [facility] biopsy was inconclusive and repeat biopsy at [facility] [place] showed findings consistent with GPA, started on rituximab and steroid used but progressed to ESRD over time around 2019 Recommended hemodialysis previously by me also during last admission but daughter, sons who are the caregivers were not ready for it. Other vitals are stable, creatinine at 6.7, and cracles appreciated throughout the lung mason. Will continue to monitor closely and fluid management as per nephrology as patient on dialysis. Abnormal thyroid function tests and primary team ordered further lab tests; ultrasound of the thyroid revealed bilateral vascular solid thyroid nodules, primary team may consider ultrasound-guided fine-needle aspiration of both nodules. On 03/13/2025 Dr. Olivares had about 30 minutes discussion with the patient's daughter regarding starting the patient on HD, at least for couple of months, and she reported she would decide about it with further discussion with other family members and decide about HD. Finally, on 03/15/2025, patient's family agreed for hemodialysis. After successful placement of IR hemodialysis catheter, she is undergoing hemodialysis session this afternoon. 03/20/2025: Patient is currently on intermittent high flow nasal cannula and BiPAP, labs revealing mild worsening in white count to 20.6. The patient's cANCA titre is 1:20 and antiproteinase 3 [address] Arellano recommended bronchoscopy to rule out any kind of alveolar hemorrhage. The patient was started on CRRT by nephrology. However, patient family members were concerned regarding Antonia's granulomatosis flareup, and wished to proceed with flare up treatment with rituximab and high-dose steroid, as previously the patient had received this treatment during flareup and had improved. Finally, the family members decided to transfer the patient to tertiary referral center for higher level of care. We will continue with diltiazem CD to 360 mg daily due to concern regarding tachycardia. 03/21/2025: The patient is pending transfer to tertiary care center for further management of flare of of Antonia's granulomatosis, and respiratory distress. However, the patient's respiratory distress has significantly been improving since yesterday evening. Currently the patient is saturating 95% on 1 L NC. No use of accessory muscle seen. ICU team was discussing about placing the patient on pulse steroid therapy, but they did not. She is being continued on CRRT. We will continue with diltiazem CD 360 mg daily for tachycardia. Recommended to keep the magnesium and potassium greater than 2 and 4 respectively at all the time. Management of rest of the medical conditions as per primary team and other consultants. Thank you for the consult and allowing me to participate in the care of the patient. Cardiology will continue to follow. The patient's management plan was discussed with my attending physician MD Kevin Murcia MD, PGY3 There is a high probability of sudden, clinically significant or life threatening deterioration in the patient condition which required the highest level of physician preparedness to intervene urgently. I have personally spent 35 minutes of critical care time, exclusive of time spent on any procedures, in evaluation and management of this critically ill patient. Attending Provider Attestation/Addendum I have personally seen and examined the patient separately on the above date of service and discussed the plan of care with the resident. I reviewed the resident Dr. Kevin Sullivan consultation progress note and agree with the resident findings and plan in the note above and have also edited the documentation to reflect my findings and plan. Jori Olivares M.D. Interventional Cardiology
--- NOTE | 2025-03-21 16:44 | EVENTNT_ITS ---
Documentation for date of: 03/21/25 Event Note Event Note: Received handoff from ICU resident Dr. Mcgowan, who communicated ICU it technical specialist, Dr. Griggs's recommendations. The patient was transferred to ICU for CRRT, as due to generalized weakness and frailty was unable to tolerate hemodialysis well. Currently being treated for acute hypoxic respiratory failure secondary to acute on chronic heart failure with severe aortic stenosis, pneumonia versus possible acute Antonia's granuloma tosis flare, was on broad-spectrum IV antibiotics for possible hospital-acquired pneumonia. Improvement noted after continuing antibiotics as well as ultrafiltration with CRRT, noted improvement in chest x-ray as well as oxygen requirements are down to 1 L via nasal cannula. Patient was evaluated in the ICU, currently resting peacefully, asleep but arousable on verbal stimuli, on 1 L nasal cannula oxygen, blood pressure within normal limits. Heart rate fluctuating between 95-120, underlying rhythm A-fib. ? Parks Re[employer] Coordinator recommendations are to stop IV antibiotics as patient has completed 12 days of IV antibiotics for pneumonia. ? Recommend to start high-dose steroids if patient continues to drop hemoglobin due to concern for pulmonary hemorrhages, also recommended to consider rituximab infusion for acute flareup of Antonia's. ? The patient was accepted for transfer at [facility], but family does not want to be transferred to [facility]. ? Consider repeat cultures to guide antibiotic therapy if patient develops fever. Quresh PGY3
[2025-03-21 19:08] LABS: COVID-19 Antigen (In-House) Negative (Negative)
[2025-03-21 19:26] LABS: Respiratory Syncytial Virus Ag Negative (Negative)
[2025-03-21 19:27] LABS: Influenza A Ag Negative; Influenza B Ag Negative
--- NOTE | 2025-03-21 19:56 | PD.IMPROG ---
Documentation for date of: 03/21/25 Subjective Subjective Interval history: Patient evaluated Respiratory status improved Pending transfer to a tertiary center Other patient accepted at [facility] but family does not want to go there Exam Vital Signs Temp Pulse Resp BP Pulse Ox O2 Del Method O2 Flow Rate 97.4 F 113 H 24 H 138/82 H 99 Nasal Cannula 1 03/21/25 17:00 03/21/25 19:28 03/21/25 19:28 03/21/25 17:00 03/21/25 19:28 03/21/25 17:00 03/21/25 19:28 FiO2 25 03/20/25 14:19 Objective Labs 03/21/25 09:24 03/21/25 09:24 Labs: Laboratory Results - last 24 hr 03/19/25 03/20/25 03/21/25 11:17 23:40 04:39 WBC 22.1 H RBC 2.55 L Hgb 7.7 L Hct 21.9 L* MCV 86 MCH 30.2 MCHC 35.2 RDW Std Deviation 48.4 H Plt Count 134 L D Neut % (Auto) 93 H Lymph % (Auto) 1 L [place] % (Auto) 4 Eos % (Auto) 0 Baso % (Auto) 0 Neut # (Auto) 20.4 H Lymph # (Auto) 0.2 L [place] # (Auto) 0.9 H Eos # (Auto) 0.0 Baso # (Auto) 0.0 Immature Gran # (Auto) 0.45 H Absolute Nucleated RBC 0.04 H Immature Gran % 2 H Nucleated RBC % 0 Sodium 137 138 Potassium 3.9 3.1 L D Chloride 100 99 Carbon Dioxide 27.6 29.1 Anion Gap 9 10 BUN 8 L < 5 L Creatinine 0.9 D 0.5 L Estim Creat Clear Calc 33.7 L 60.7 L eGFR > 60 > 60 BUN/Creatinine Ratio 9 L 10 L Glucose 100 96 Calculated Osmolality 272 L 272 L Calcium 7.7 L 7.6 L Corrected Calcium 8.2 L 8.2 L Phosphorus 2.3 L 2.2 L Magnesium 1.4 L Total Bilirubin 0.6 AST 45 H ALT 72 H Alkaline Phosphatase 48 Total Protein 5.2 L Albumin 3.4 3.3 L Globulin 1.9 L Albumin/Globulin Ratio 1.7 Random Vancomycin 7.8 Coccidioides IgG Ab Negative Influenza A (Rapid) Influenza B (Rapid) RSV Rapid SARS-CoV-2 Ag (Rapid) 03/21/25 03/21/25 09:24 17:35 WBC 20.0 H RBC 2.54 L Hgb 7.6 L Hct 21.8 L* MCV 86 MCH 29.9 MCHC 34.9 RDW Std Deviation 48.0 H Plt Count 145 Neut % (Auto) 93 H Lymph % (Auto) 1 L [place] % (Auto) 4 Eos % (Auto) 0 Baso % (Auto) 0 Neut # (Auto) 18.5 H Lymph # (Auto) 0.3 L [place] # (Auto) 0.9 H Eos # (Auto) 0.0 Baso # (Auto) 0.0 Immature Gran # (Auto) 0.34 H Absolute Nucleated RBC 0.07 H Immature Gran % 2 H Nucleated RBC % 0 Sodium 136 Potassium 3.4 Chloride 99 Carbon Dioxide 28.3 Anion Gap 9 BUN 8 L Creatinine 1.0 D Estim Creat Clear Calc 30.6 L eGFR 56 L BUN/Creatinine Ratio 8 L Glucose 109 H Calculated Osmolality 271 L Calcium 7.9 L Corrected Calcium 8.5 Phosphorus Magnesium Total Bilirubin 0.5 AST 50 H ALT 84 H Alkaline Phosphatase 49 Total Protein 5.3 L Albumin 3.3 L Globulin 2.0 L Albumin/Globulin Ratio 1.7 Random Vancomycin Coccidioides IgG Ab Influenza A (Rapid) Negative Influenza B (Rapid) Negative RSV Rapid Negative SARS-CoV-2 Ag (Rapid) Negative Impressions Impression: Hemoccult positive stool 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 Continue current ABG Interpretation ABG results: 03/09/25 03/09/25 03/10/25 07:50 18:22 09:05 ABG pH 7.45 ABG pCO2 39 ABG pO2 289 H ABG HCO3 27 H ABG O2 Saturation 101 H ABG Base Excess 2 VBG pH 7.39 7.49 VBG pCO2 49 37 D VBG pO2 70 H 68 H VBG Base Excess 4 H 5 H 03/11/25 03/12/25 03/16/25 10:09 09:44 03:09 ABG pH 7.40 7.41 ABG pCO2 44 46 ABG pO2 80 L D 97 ABG HCO3 27 H 29 H ABG O2 Saturation 95 98 ABG Base Excess 2 4 H VBG pH 7.45 VBG pCO2 40 VBG pO2 39 D VBG Base Excess 4 H 03/18/25 03/19/25 03/20/25 14:17 08:33 07:12 ABG pH 7.36 7.31 L ABG pCO2 43 38 ABG pO2 66 L 80 L ABG HCO3 24 19 L ABG O2 Saturation 91 95 ABG Base Excess -1 -7 L VBG pH 7.45 VBG pCO2 39 VBG pO2 59 H VBG Base Excess 3 Assessment & Plan A&P Narrative # FOBT positive in a patient who has severe aortic stenosis 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 Since she has hypoxic respiratory failure At least at this point I will not subject the patient to any invasive GI workup till the respiratory status and the volume overload is corrected The patient needs anticoagulation for some reason she cannot be fully anticoagulated as she is not bleeding away And if she does bleed at that consider invasive GI workup Other medical problems include # Acute hypoxic respiratory failure on high flow oxygen # Severe aortic stenosis moderate MR and TR # End-stage renal disease on hemodialysis Will follow the patient Thank you very much for the opportunity to participate in the care of this patient Time Spent With Patient Time: Total time spent is greater than 50% in coordination of care (as documented) at patient's floor/unit and/or counseling patient:
[2025-03-21 22:10] LABS: Ferritin 1079 ng/mL (7.3-270.7); Iron 96 mcg/dL (50-170); Percent Iron Saturation 100 % (20-55); Total Iron Binding Capacity < 40 mcg/dL (250-425); Unsaturated Iron Binding 0 (225-295)
[2025-03-21] MEDS: ATORVASTATIN CALCIUM 20 MG TABLET 40 MG PO (22:16)
[2025-03-22] VITALS (33 sets, daily range): BP systolic 107–140; BP diastolic 40–81; PULSE 52–112; RESP 18–26; TEMP 35.9–37; O2SAT 88–100; BMI 26.4
[2025-03-22] MEDS: ALBUTEROL RT 2.5 MG/0.5 ML NEBU 5 MG INH ×6 (03:18→22:57)
[2025-03-22] MEDS: IPRATROPIUM RT 0.5 MG/ 2.5 ML NEBU INH ×6 (03:18→22:57)
[2025-03-22] MEDS: guaiFENesin SYRUP 200 MG/10 ML UDC PO ×3 (05:49→21:23)
[2025-03-22] MEDS: METHIMAZOLE 5 MG TABLET PO ×3 (05:50→21:23)
[2025-03-22 06:21] LABS: Basophils # (Auto) 0.0 Thou/mm3 (0.0-0.2); Basophils % (Auto) 0 % (0-2.5); Eosinophils # (Auto) 0.0 Thou/mm3 (0.0-0.5); Eosinophils % (Auto) 0 % (0-10); Hematocrit 21.1 % (36.0-46.0); Immature Granulocytes Auto 0.44 Thou/mm3 (0.00-0.00); Immature Reticulocyte Fraction 30.7 % (3.0-15.9); Lymphocytes # (Auto) 0.3 Thou/mm3 (1.0-4.8); Lymphocytes % (Auto) 1 % (10-50); Mean Corpuscular HGB Conc 34.6 g/dl (31.0-37.0); Mean Corpuscular Hemoglobin 30.3 pg (25.0-35.0); Mean Corpuscular Volume 88 fL (80-100); Monocytes # (Auto) 0.5 Thou/mm3 (0.0-0.8); Monocytes % (Auto) 2 % (0-12); Neutrophils # (Auto) 20.6 Thou/mm3 (1.8-7.7); Neutrophils % (Auto) 94 % (37-80); Nucleated Red Blood Cell # 0.25 Thou/mm3 (0.00-0.00); Nucleated Red Blood Cell % 1 /100 WBC (0); Platelet Count 156 Thou/mm3 (140-440); RDW Standard Deviation 48.4 fL (36.4-46.3); Red Blood Count 2.41 Miln/mm3 (4.00-5.20); Reticulocyte % (Auto) 1.7 % (0.5-1.5); Reticulocyte Absolute Auto 41.7 Biln/L (25.0-75.0); Reticulocyte Hgb Content 37.5 pg (28.0-35.0); White Blood Count 21.8 Thou/mm3 (3.6-11.0)
[2025-03-22 06:24] LABS: Hemoglobin 7.3 g/dL (12.0-16.0)
[2025-03-22 06:41] LABS: Alanine Aminotransferase 89 U/L (10-49); Albumin, Serum 3.3 gm/dL (3.4-4.8); Albumin/Globulin Ratio 1.7 (1.2-2.2); Alkaline Phosphatase 47 U/L (46-116); Anion Gap 11 (7-16); Aspartate Amino Transferase 35 U/L (0-34); BUN/Creatinine Ratio 14 Ratio (12-20); Bilirubin,Total 0.5 mg/dL (0.3-1.2); Blood Urea Nitrogen 34 mg/dL (9-23); Calcium 8.5 mg/dL (8.3-10.6); Calcium (Corrected) 9.1 mg/dL (8.5-10.1); Carbon Dioxide 26.9 mMol/L (20.0-31.0); Chloride 98 mMol/L (98-107); Creatinine (Component) 2.5 mg/dL (0.6-1.3); Estimated Creatinine Clearance 12.2 mL/min (>60); Globulin 1.9 gm/dL (2.3-3.5); Glucose 143 mg/dL (74-106); LDH (Lactate Dehydrogenase) 361 U/L (120-246); Magnesium 1.7 mg/dL (1.6-2.6); Osmolality,Calculated 281 (275-295); Phosphorous 4.8 mg/dL (2.4-5.1); Potassium 4.4 mMol/L (3.4-5.1); Sodium 136 mMol/L (136-145); Total Protein 5.2 gm/dL (5.7-8.2); Vancomycin,Random 10.0 mcg/mL; eGFR 19 See Note
--- NOTE | 2025-03-22 07:15 | PC.CC ---
received in report [facility] TC called to request Ct chest report for 03/18. Sent report and up-to-date labs
[2025-03-22] MEDS: BREZTRI 2 EA INH ×2 (07:45→22:58)
[2025-03-22] MEDS: Magnesium Sulfate 4 GM Ivpb 4 GM/50 ML BAG IV (09:13)
[2025-03-22] MEDS: DILTIAZEM CD 120 MG CAPCR 360 MG PO (09:14)
--- NOTE | 2025-03-22 09:32 | ESPR_ITS ---
Documentation for date of: 03/22/25 Subjective Subjective Interval history: Overnight events: No acute events overnight. Patient was seen and examined at bedside. AM vitals and labs reviewed. WBC 22.1, H&H 7.3/21.1, potassium 4.4, BUN 34, creatinine 2.5, GFR 19, corrected calcium 8.2, phosphorus 4.8. Patient downgraded to telemetry yesterday. IV antibiotics stopped as patient completed 12 days of IV antibiotics for PNA. Plisse Machine Operator recommends high-dose steroids with patient has drop in hemoglobin due to concern for pulmonary hemorrhages. Plisse Machine Operator also recommends considering rituximab infusion for acute flareup of Antonia's. Chest x-ray done yesterday showed moderate vascular congestion and suspicion for early pneumonia in right upper lobe, however congestion seems decreased compared to chest x-ray done 03/20. Patient did not have any dialysis yesterday, will plan for dialysis today with UF goal of 1.0-1.5 as patient family member mentioned that the patient tolerated a lower UF goal better compared to higher UF goal. Today the patient continues to be tired, but a bit more interactive. Patient's family noted that the patient seems to have a puffy her face as compared to yesterday, which is often a sign that she is retaining fluid. The patient continues to breathe comfortably on 1 L nasal cannula. Patient has no complaints at this time. Patient's family decided that with the patient's symptom improvement, if they would prefer to have the patient discharged home instead of being transferred to [facility], especially as rheumatology may end up managing the patient in the outpatient setting. The patient's family plans to have the patient see Dr. Leo for outpatient and have hemodialysis performed at Dr. Coley's hemodialysis center. Patient's family are possibly planning to pursue 1 round of peritoneal dialysis on Wednesday and then restarting hemodialysis on Wednesday. Review of systems otherwise negative except for what is mentioned above. Exam Vital Signs Temp Pulse Resp BP Pulse Ox O2 Del Method O2 Flow Rate 97.1 F 90 19 121/74 95 Nasal Cannula 1 03/22/25 08:00 03/22/25 09:14 03/22/25 08:00 03/22/25 09:14 03/22/25 08:00 03/22/25 08:00 03/22/25 08:00 FiO2 25 03/20/25 14:19 Narrative Exam Physical Exam: General: Alert, no acute distress. Skin: Warm, dry, intact, no obvious rash. RIJ dialysis catheter area red/purple/brown discoloration. Head: Normocephalic, atraumatic. Eye: Normal conjunctiva, PERRL. Cardiovascular: Regular rate and rhythm, systolic murmur, +S1/S2. Respiratory: Short and shallow breaths on auscultation, respirations unlabored. Wheezing in right upper lobe. Extremities: No edema, no cyanosis, no clubbing. 2+ radial pulse bilaterally, 2+ pedal pulse bilaterally. Objective Labs 03/23/25 05:49 03/23/25 05:49 Labs: Laboratory Results - last 24 hr 03/19/25 03/21/25 03/21/25 11:17 04:39 09:24 WBC 20.0 H RBC 2.54 L Hgb 7.6 L Hct 21.8 L* MCV 86 MCH 29.9 MCHC 34.9 RDW Std Deviation 48.0 H Plt Count 145 Neut % (Auto) 93 H Lymph % (Auto) 1 L [place] % (Auto) 4 Eos % (Auto) 0 Baso % (Auto) 0 Neut # (Auto) 18.5 H Lymph # (Auto) 0.3 L [place] # (Auto) 0.9 H Eos # (Auto) 0.0 Baso # (Auto) 0.0 Immature Gran # (Auto) 0.34 H Absolute Nucleated RBC 0.07 H Immature Gran % 2 H Nucleated RBC % 0 Retic Count (auto) Absolute Retic Immature Retic Fraction Retic Hgb Content CHr Sodium 136 Potassium 3.4 Chloride 99 Carbon Dioxide 28.3 Anion Gap 9 BUN 8 L Creatinine 1.0 D Estim Creat Clear Calc 30.6 L eGFR 56 L BUN/Creatinine Ratio 8 L Glucose 109 H Calculated Osmolality 271 L Calcium 7.9 L Corrected Calcium 8.5 Phosphorus Magnesium Iron 96 TIBC < 40 L Iron Saturation 100 H Unsat Iron Binding 0 L Ferritin 1079 H Total Bilirubin 0.5 AST 50 H ALT 84 H Alkaline Phosphatase 49 Lactate Dehydrogenase Total Protein 5.3 L Albumin 3.3 L Globulin 2.0 L Albumin/Globulin Ratio 1.7 Random Vancomycin Coccidioides IgG Ab Negative Influenza A (Rapid) Influenza B (Rapid) RSV Rapid SARS-CoV-2 Ag (Rapid) 03/21/25 03/22/25 17:35 05:50 WBC 21.8 H RBC 2.41 L Hgb 7.3 L Hct 21.1 L* MCV 88 MCH 30.3 MCHC 34.6 RDW Std Deviation 48.4 H Plt Count 156 Neut % (Auto) 94 H Lymph % (Auto) 1 L [place] % (Auto) 2 Eos % (Auto) 0 Baso % (Auto) 0 Neut # (Auto) 20.6 H Lymph # (Auto) 0.3 L [place] # (Auto) 0.5 Eos # (Auto) 0.0 Baso # (Auto) 0.0 Immature Gran # (Auto) 0.44 H Absolute Nucleated RBC 0.25 H Immature Gran % 2 H Nucleated RBC % 1 H Retic Count (auto) 1.7 H Absolute Retic 41.7 Immature Retic Fraction 30.7 H Retic Hgb Content CHr 37.5 H Sodium 136 Potassium 4.4 D Chloride 98 Carbon Dioxide 26.9 Anion Gap 11 BUN 34 H Creatinine 2.5 H D Estim Creat Clear Calc 12.2 L eGFR 19 L BUN/Creatinine Ratio 14 Glucose 143 H Calculated Osmolality 281 Calcium 8.5 Corrected Calcium 9.1 Phosphorus 4.8 Magnesium 1.7 Iron TIBC Iron Saturation Unsat Iron Binding Ferritin Total Bilirubin 0.5 AST 35 H ALT 89 H Alkaline Phosphatase 47 Lactate Dehydrogenase 361 H Total Protein 5.2 L Albumin 3.3 L Globulin 1.9 L Albumin/Globulin Ratio 1.7 Random Vancomycin 10.0 Coccidioides IgG Ab Influenza A (Rapid) Negative Influenza B (Rapid) Negative RSV Rapid Negative SARS-CoV-2 Ag (Rapid) Negative ABG Interpretation ABG results: 03/09/25 03/09/25 03/10/25 07:50 18:22 09:05 ABG pH 7.45 ABG pCO2 39 ABG pO2 289 H ABG HCO3 27 H ABG O2 Saturation 101 H ABG Base Excess 2 VBG pH 7.39 7.49 VBG pCO2 49 37 D VBG pO2 70 H 68 H VBG Base Excess 4 H 5 H 03/11/25 03/12/25 03/16/25 10:09 09:44 03:09 ABG pH 7.40 7.41 ABG pCO2 44 46 ABG pO2 80 L D 97 ABG HCO3 27 H 29 H ABG O2 Saturation 95 98 ABG Base Excess 2 4 H VBG pH 7.45 VBG pCO2 40 VBG pO2 39 D VBG Base Excess 4 H 03/18/25 03/19/25 03/20/25 14:17 08:33 07:12 ABG pH 7.36 7.31 L ABG pCO2 43 38 ABG pO2 66 L 80 L ABG HCO3 24 19 L ABG O2 Saturation 91 95 ABG Base Excess -1 -7 L VBG pH 7.45 VBG pCO2 39 VBG pO2 59 H VBG Base Excess 3 Quality Measures Quality Measures none Advance care planning discussed with:: patient and child Assessment & Plan Assessment Current Active Medications: Generic Name Dose Route Start Last Admin Trade Name Freq PRN Reason Stop Dose Admin Acetaminophen 650 mg 03/09/25 14:41 03/16/25 22:38 Acetaminophen 325 Mg Tablet PO 04/08/25 14:40 650 mg Q6H PRN Administration Mild Pain(1-3) or Fever >100.3 Albuterol 5 mg 03/18/25 15:00 03/22/25 06:16 Albuterol Rt 2.5 Mg/0.5 Ml Nebu INH 04/17/25 14:59 5 mg Q4HRRT SABRINA Administration Atorvastatin Calcium 40 mg 03/09/25 21:00 03/21/25 22:16 Atorvastatin Calcium 20 Mg Tablet PO 04/08/25 20:59 40 mg HS SABRINA Administration Dextrose 25 ml 03/12/25 08:16 Dextrose 50%-Water Inj 50 Ml Syringe IV 04/11/25 08:15 Q15MIN PRN BG 50-70 responsive npo pt Dextrose 50 ml 03/12/25 08:16 Dextrose 50%-Water Inj 50 Ml Syringe IV 04/11/25 08:15 Q15MIN PRN BG <50 OR BG <70 & pt unresponsive Diltiazem HCl 360 mg 03/21/25 09:00 03/22/25 09:14 Diltiazem Cd 120 Mg Capcr PO 04/20/25 08:59 360 mg QDAY SABRINA Administration Glucagon 1 mg 03/12/25 08:16 Glucagon Inj 1 Mg Vial IM Q15MIN PRN BG <70, and no IV access Guaifenesin 200 mg 03/16/25 14:00 03/22/25 05:49 Guaifenesin Syrup 200 Mg/10 Ml Udc PO 04/15/25 13:59 200 mg TID SABRINA Administration Protocol Heparin Sodium (Porcine) 3,300 unit 03/15/25 15:49 03/21/25 04:14 Heparin Sod Inj 1000 Unit/Ml Vial 10 Ml INDWELLCAT 03/29/25 15:48 3,300 unit X1 PRN Administration DIALYSIS Magnesium Sulfate 4 gm in 50 mls @ 12.5 mls/hr 03/22/25 08:21 03/22/25 09:13 Magnesium Sulfate Ivpb IV 03/22/25 12:20 12.5 mls/hr X1 ONE Administration Insulin Human Lispro 0 unit 03/12/25 11:30 03/22/25 07:50 Insulin Lispro (Admelog) 1 Unit/0.01 Ml Unit SC 04/11/25 11:29 Not Given AC SABRINA Protocol Ipratropium [place] 0.5 mg 03/10/25 15:00 03/22/25 06:16 Ipratropium Rt 0.5 Mg/ 2.5 Ml Nebu INH 04/09/25 14:59 0.5 mg Q4HRRT SABRINA Administration Methimazole 5 mg 03/15/25 08:45 03/22/25 05:50 Methimazole 5 Mg Tablet PO 04/14/25 08:44 5 mg TID SABRINA Administration Methylprednisolone Sodium Succinate 40 mg 03/18/25 21:00 03/22/25 09:15 Methylprednisolone Sod Succ 40 Mg Vial IVP 03/25/25 20:59 40 mg BID SABRINA Administration Ondansetron HCl 4 mg 03/09/25 14:41 Ondansetron Inj 2 Mg/Ml Inj 2 Ml IVP 04/08/25 14:40 Q6H PRN NAUSEA OR VOMITING Protocol Pantoprazole Sodium 40 mg 03/22/25 09:00 03/22/25 09:15 Pantoprazole Inj 40 Mg Vial IVP 04/21/25 08:59 40 mg BID SABRINA Administration Breztri (Budesonide, 2 ea 03/13/25 12:00 03/22/25 07:45 Glycopyrrolate And INH 04/12/25 11:59 2 puff Formoterol) BID SABRINA Administration Polyethylene Glycol 17 gm 03/21/25 09:15 03/22/25 09:13 Polyethylene Glycol 17 Gm Packet PO 04/20/25 09:14 17 gm QDAY SABRINA Administration Sennosides 1 tab 03/21/25 17:15 03/22/25 09:14 Senna Tablet PO 04/20/25 17:14 1 tab QDAY SABRINA Administration Protocol Sevelamer Carbonate 800 mg 03/20/25 12:00 03/20/25 18:45 Sevelamer Carbonate 800 Mg Tablet PO 04/19/25 11:59 Not Given TIDWM SABRINA Sodium Chloride 3 ml 03/11/25 16:26 03/20/25 18:42 Sodium Chloride Rt Annika 0.9% 3 Ml Nebu INH 04/10/25 16:25 3 ml PRN PRN Administration SOLN Plan Mrs. 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 Nephrology was consulted for management of her peritoneal dialysis. Due to concerns of PNA and inadequate HD, patient transferred to ICU on 03/19 for additional respiratory support/monitoring and CRRT. Downgraded to telemetry on 03/21. Pending transfer to tertiary care center initiated on 03/21. #ESRD on Peritoneal Dialysis #ESRD 2/2 Donna's Granulomatosis #Fluid overload status #Anemia #Hyperkalemia, hyperphosphatemia (resolved) - Discontinued nightly peritoneal dialysis 03/15. - Peritoneal dialysis was not sufficient in removing adequate volume. - Plan for one PD session on Wednesday with family hoping for discharge beforehand. - Permanent dialysis catheter placed 03/15. - Hemodialysis performed 03/15, 03/16, 03/17 - Plan for hemodialysis session today 03/22. - Patient to pursue HD outpatient at Dr. Coley's HD center after discharge. - CRRT started on 03/19 for continued respiratory concerns even with HD. - CRRT performed 03/19 for 12hrs and 03/20 for 11hrs 39min. - CRRT stopped 03/21 due to renal function lab values returning to WNL and downgrade to telemetry unit. - Continue Sevelamer powder 800mg TID. - Continue to monitor renal function. - Avoid IV hydration given past history of fluid overload and CHF. - Avoid nephrotoxic drugs and renally adjust medications. - Patient to follow up with outpatient billboard poster Dr. Leo for dialysis once discharged. - Nephrology will continue to follow. Patient was discussed with the Nephrology attending, Dr. Amezcua. Thank you for allowing us to participate in the care of this patient. Rogelio Asher, PGY-1 Attending Provider Attestation/Addendum Pt is seen and examined. Labs and other investigations reviewed. Agree with assessment and plan and finding by resident. Temo Amezcua MD
--- NOTE | 2025-03-22 12:28 | PC.CC ---
1225: spoke to bedside nurse Omar, he confirmed that pt's daughter is taking the patient home. 1156: received call from [facility] for a peer to peer. While initiating the connection between the 2 providers, Dr. Martinez informed me that pt's family no longer wants the transfer. I verified with Dr. martinez to cancel the transfer request. Informed Tristen with [facility] to cancel transfer request.
--- NOTE | 2025-03-22 13:57 | PD.RESDS ---
Planned Discharge Date 03/22/25 DS: Providers Provider Date of admission: 03/09/25 14:41 Primary care physician: Jori Woodruff Admitting Provider: Yennifer Martinez MD Attending Provider on Admission: Yennifer Martinez MD Consults: 03/09/25 14:53 Consult to Nephrology Stat Comment: Consulting Provider: Temo Amezcua Instructions: Patient uses peritoneal dialysis 03/09/25 23:58 Referral Infection Control Routine Comment: Reason for Infection Control Referral: Current Dialysis Patient 03/10/25 10:08 Consult to Cardiology Urgent Comment: Consulting Provider: Jori Olivares 03/11/25 10:55 Consult to Pulmonology Urgent Comment: asthma Consulting Provider: Al Arellano I 03/16/25 10:49 Consult to Draw Frame Operator Urgent Comment: Consulting Provider: Veronique Griggs 03/17/25 02:44 Consult to Gastroenterology Stat Comment: GIB, Hb drop Consulting Provider: Peter Abraham 03/19/25 10:30 Continous [Referral Continuous Nebulizer] Routine Comment: Reason for Consult: wheezing 03/19/25 18:15 Consult to Infectious Diseases Stat Comment: unresolving PNA Consulting Provider: Anthony Beaver 03/20/25 11:09 Referral Speech Therapy Routine Comment: 03/20/25 12:55 Referral - Bolt Machine Operator Stat Service Needed for Transfer: Rheumatology Addl Comments:: Suspected Relapse of Donna's Also Infectious Disease, Pneumonia Attending Provider on DC: [place] Alex Discharging Provider: [place] Alex Hospital Course Hospital Course Hospital course: Summary: Patient is a 84 year old female with significant past medical history, including ESRD transitioning from peritoneal to hemodialysis, COPD, asthma, severe aortic stenosis, heart failure with preserved ejection fraction, cardiac arrythmia, Antonia's Granulomatosis, 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 ED Course: Patient presented to the ED with a one day history of worsening shortness of breath. Patient stated that she had not experienced an episode as severe before. Patient endorsed a dry cough as well. Per patient's daughter, patient attempted treatment with prednisone at home, but it irritated her stomach. Per daughter, patient experienced an upper respiratory infection a couple days prior. In addition, patient had a single episode of coffee-ground emesis a couple days prior to presentation. Patient denied fever, chills, and chest pain. CXR demonstrated findings consistent with mild heart failure. EKG demonstrated findings consistent with multifocal atrial tachycardia and possible atrial fibrillation given irregular R-R intervals. Pertinent labs include: WBC 10.3 RBC 3.94 Hgb 10.5 Hct 34.6 ABG pH 7.45 PCO2 39 Na 131 Cl 90 BUN 56 Cr 7.3 GFR 6 Lactic Acid 2.8. Treatments provided include: albuterol 5 mg INH x1 levalbulterol 1.25 mg INH x1 methylprednisolone 125 mg IVPx1 famotidine 20 mg IVPx1 sodium chloride nebulizer 3 mlx1 for breathing, NS 500 ml for fluid resuscitation, pantoprazole 40 mg IVPx1 and sucralfate 1 mg POx1 for GI prophylaxis, and diltiazem 240 mg POx1 for heart rate control. Hospital Course: Patient was admitted for acute on chronic hypoxic respiratory failure secondary to asthma exacerbation and fluid overload due to ESRD and treated for the additional listed conditions. Respiratory failure: Upon admission, patient required high flow nasal cannula of 20L oxygen. On 03/19, patient was transferred to ICU for improved respiratory support. Breathing treatments during hospitalization included: levalbuterol 1.25 mg INH Q4HRRT uptitrated to albuterol 5 mg, ipratropium 0.5 mg Q4HRRT, budesonide BIDRT, guaifenesin 200 mg TID, methylprednisolone 60 mg IVP BID titrated down to 40 mg IVP BID, and the patient's own breztri inhaler. At the time of discharge, patient was saturating well on room and was stable at baseline. ESRD: In regards to ESRD, patient transitioned from peritoneal dialysis to hemodialysis on 03/15 and underwent CRRT in the ICU from on 03/19 and 03/20. Patient's BUN decreased to as low as 5, Cr improved to as low as 0.5, and GFR increased to >60. Anemia: During admission, patient developed acute anemia. FOBT positive on 03/17. Pertinent labs 03/22: Hgb 7.3 Hct 21.1. Per consult with GI, Dr. 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 Treatment included: pantoprazole 40 mg IVP BID. Acute on Chronic CHF/Severe Aortic Stenosis: Echo 03/12 showed an ejection fraction of 60-65%, RVSP 55-60 mmHg, LATRICE 0.5 cm2, AV max 3.8 m/s, PG 38 mmHg. Pertinent labs 03/15 BNP 1608. Treatment included fluid restriction and patient will follow up with cardiology, Dr. Olivares, outpatient for possible TAVR. Antonia's Granulomatosis: Pertinent labs: c-ANCA 1:20 Anti-Proteinase 16.9. Patient's family agreed to outpatient rheumatology consult. Hyperthyroidism: Pertinent labs: 03/11 TSH 0.02 T4 1.62 TPO 1 TSI 89. Treatment included starting methimazole 5 mg PO TID. Patient tolerated the medication well. Multifocal Atrial Tachycardia: EKG 03/14 demonstrated findings consistent with multifocal atrial tachycardia. Per cardiology, Dr. Olivares, diltiazem uptitrated from 240 mg to 360 mg PO QD on 03/17. EKG 03/20 demonstrated sinus rhythm. Patient will continue to follow-up with cardiology outpatient. Constipation: Patient did not have consistent bowel movements during hospitalization. Abdominal x-ray 03/16 demonstrated non-obstructive gas pattern. Treatments included: senna, docusate, glycerin, and lactulose. Patient was continued on lactulose 60 mg PO TID PRN and experienced consistent bowel movements. Pneumonia: Patient was treated with azithromycin (03/09-03/12) and ceftriaxone (03/10-03/11) as prophylaxis. CXR 03/15 demonstrated bilateral pneumonia for which the patient was treated with levaquin from 03/17-03/18, vancomycin, and cefepime. CXR 03/20 demonstrated improvement of pneumonia. Patient tolerated medications well. Patient will undergo additional hemodialysis session today. On 03/24, patient will undergo peritoneal dialysis. Patient will begin outpatient hemodialysis 03/26 with Nephrology, Dr. Leo. Patient will continue necessary home medications as prescribed. Patient is stable and progressing back to baseline. #Acute on chronic hypoxic respiratory failure #Asthma exacerbation #ESRD, Hemodialysis #Periotoneal Dialysis, Stopped #ESRD secondary to Granulomatosis #Acute Anemia #Acute on Chronic Congestive Heart Failure, worsening #CHF HFpEF 60-65% (03/12/2025) #Mild Pulmonary Vascular Congestion #Moderate to Severe Aortic Stenosis, AV vmax 3.8 m #Severe Mitral Regurgitation #Moderate PAH, 55 mmHg #Flash pulmonary edema, secondary to severe #History of Antonia's granulomatosis #Acute on Chronic Congestive Heart Failure, worsening #History of Antonia's Granulomatosis #Concern for Hyperthyroidism #MAT #Atrial Fibrillation, less likely #EKG Abnormalities #Pneumonia #Hyperkalemia, resolved #Hyperphosphatemia, resolved #Constipation #Mild Transaminitis #Possible Hepatopulmonary Syndrome #Mild Troponemia #NSTEMI, type II likely demand ischemia #Single Episode of Hematemsis #Normocytic Normochromic Anemia #History of CVA #GERD #Gastritis (?) #History of Fracture Neck of Right Femur Case reviewed with attending Dr. Martinez and senior resident Dr. Miller. Nneka Sena MS-4 Time Spent with Patient Time attestation: Total time spent providing and/or coordinating discharge services: Time spent: Greater than 30 minutes Exam Vital Signs Temp Pulse Resp BP Pulse Ox O2 Del Method O2 Flow Rate 96.7 F L 66 18 120/44 L 96 Nasal Cannula 0.5 03/22/25 12:54 03/22/25 13:45 03/22/25 12:54 03/22/25 13:45 03/22/25 12:54 03/22/25 12:00 03/22/25 12:54 FiO2 25 03/22/25 12:00 Discharge Plan Prescriptions/Referrals Prescriptions/Med Rec: No Action megestrol 400 mg/10 mL (40 mg/mL) suspension 40 mg PO QDAY Qty: 240 0RF ondansetron 4 mg tablet,disintegrating 4 mg PO Q6H PRN (Reason: nausea and vomiting) Qty: 30 0RF Rx Instructions: disintegrating tablet cholestyramine (with sugar) 4 gram powder in packet 4 g PO TID PRN (Reason: diarrhea ) Qty: 21 0RF Rx Instructions: administer w/meal; avoid other meds within 1hr before or 4-6hr after dose Titrate to bowel movements as needed. clopidogrel [Plavix] 75 MG tablet 75 mg PO QDAY Qty: 30 0RF atorvastatin 40 mg Tablet 40 mg PO QDAY diltiazem HCl 240 mg capsule,extended release 24hr 240 mg PO DAILY acetaminophen [Tactinal] 325 mg tablet 650 mg PO Q6H PRN (Reason: fever or pain) Breztri Aerosphere 160-9-4.8 mcg/actuation HFA aerosol inhaler 2 inh inhalation BID Qty: 10.7 3RF albuterol sulfate [Ventolin HFA] 90 mcg/actuation Hfa Aerosol Inhaler 2 puff INHALATION QID PRN (Reason: sob) 30 Days Qty: 2 0RF pantoprazole 20 mg tablet,delayed release (DR/EC) 20 mg PO BID Qty: 60 0RF Referrals: Jori Woodruff [Primary Care Provider] - Patient/Caregiver Discharge Instructions Discharge Activity: as per physical therapy Print Language: Belarusian MD Attestestation MD Attestation 84-year-old female with multiple comorbidities including heart failure with preserved EF with EF 55-60%, severe aortic stenosis with V-max 3.8, pulmonary hypertension, granulomatosis with polyangiitis with subsequent end-stage renal disease on peritoneal dialysis history of ischemic CVA with right-sided hemiparesis, hypertension, hyperlipidemia presented to the ER with shortness of breath found to have acute hypoxic respiratory failure multifactorial including asthma exacerbation and fluid overload state. Initially, patient did require BiPAP and advised to continue IV steroids, IV antibiotic therapy and plan for peritoneal dialysis. Furthermore, patient also has moderate to severe aortic stenosis with pulmonary arterial hypertension and plan to consult cardiology. Overnight, patient respiratory status improving currently on 10 L oxy mask. Discussed case with pulmonary and nephrology team and plan for a TDC placement for possible hemodialysis initiation. In addition, plan to continue IV steroids, IV antibiotic and peritoneal dialysis. Appreciate cardiology, pulmonary and nephrology input. I reviewed above note and agree with findings and plans. I have also personally examined the patient with medicine team and went over assessment and plan with medical team including buyer intern and resident physician.
--- NOTE | 2025-03-22 15:30 | ESPR_ITS ---
Documentation for date of: 03/22/25 Subjective Subjective Interval history: Patient evaluated Hemoglobin hematocrit 7.3 and 21.1 BUN/creatinine 34 and 2.5 Exam Vital Signs Temp Pulse Resp BP Pulse Ox O2 Del Method O2 Flow Rate 97.6 F 88 18 133/44 H 99 Nasal Cannula 1 03/22/25 14:50 03/22/25 15:16 03/22/25 15:16 03/22/25 15:02 03/22/25 15:16 03/22/25 12:00 03/22/25 15:16 FiO2 25 03/22/25 12:00 Objective Labs 03/22/25 05:50 03/22/25 05:50 Labs: Laboratory Results - last 24 hr 03/21/25 03/21/25 03/22/25 04:39 17:35 05:50 WBC 21.8 H RBC 2.41 L Hgb 7.3 L Hct 21.1 L* MCV 88 MCH 30.3 MCHC 34.6 RDW Std Deviation 48.4 H Plt Count 156 Neut % (Auto) 94 H Lymph % (Auto) 1 L [place] % (Auto) 2 Eos % (Auto) 0 Baso % (Auto) 0 Neut # (Auto) 20.6 H Lymph # (Auto) 0.3 L [place] # (Auto) 0.5 Eos # (Auto) 0.0 Baso # (Auto) 0.0 Immature Gran # (Auto) 0.44 H Absolute Nucleated RBC 0.25 H Immature Gran % 2 H Nucleated RBC % 1 H Retic Count (auto) 1.7 H Absolute Retic 41.7 Immature Retic Fraction 30.7 H Retic Hgb Content CHr 37.5 H Sodium 136 Potassium 4.4 D Chloride 98 Carbon Dioxide 26.9 Anion Gap 11 BUN 34 H Creatinine 2.5 H D Estim Creat Clear Calc 12.2 L eGFR 19 L BUN/Creatinine Ratio 14 Glucose 143 H Calculated Osmolality 281 Calcium 8.5 Corrected Calcium 9.1 Phosphorus 4.8 Magnesium 1.7 Iron 96 TIBC < 40 L Iron Saturation 100 H Unsat Iron Binding 0 L Ferritin 1079 H Total Bilirubin 0.5 AST 35 H ALT 89 H Alkaline Phosphatase 47 Lactate Dehydrogenase 361 H Total Protein 5.2 L Albumin 3.3 L Globulin 1.9 L Albumin/Globulin Ratio 1.7 Random Vancomycin 10.0 Influenza A (Rapid) Negative Influenza B (Rapid) Negative RSV Rapid Negative SARS-CoV-2 Ag (Rapid) Negative Impressions Impression: FOBT positive with stabilization of the hemoglobin hematocrit 7.3 and 21.1 Acute flareup of the Antonia's granulomatosis Continue supportive care at the moment ABG Interpretation ABG results: 03/09/25 03/09/25 03/10/25 07:50 18:22 09:05 ABG pH 7.45 ABG pCO2 39 ABG pO2 289 H ABG HCO3 27 H ABG O2 Saturation 101 H ABG Base Excess 2 VBG pH 7.39 7.49 VBG pCO2 49 37 D VBG pO2 70 H 68 H VBG Base Excess 4 H 5 H 03/11/25 03/12/25 03/16/25 10:09 09:44 03:09 ABG pH 7.40 7.41 ABG pCO2 44 46 ABG pO2 80 L D 97 ABG HCO3 27 H 29 H ABG O2 Saturation 95 98 ABG Base Excess 2 4 H VBG pH 7.45 VBG pCO2 40 VBG pO2 39 D VBG Base Excess 4 H 03/18/25 03/19/25 03/20/25 14:17 08:33 07:12 ABG pH 7.36 7.31 L ABG pCO2 43 38 ABG pO2 66 L 80 L ABG HCO3 24 19 L ABG O2 Saturation 91 95 ABG Base Excess -1 -7 L VBG pH 7.45 VBG pCO2 39 VBG pO2 59 H VBG Base Excess 3 Assessment & Plan A&P Narrative # FOBT positive in a patient who has severe aortic stenosis 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 Since she has hypoxic respiratory failure At least at this point I will not subject the patient to any invasive GI workup till the respiratory status and the volume overload is corrected The patient needs anticoagulation for some reason she cannot be fully anticoagulated as she is not bleeding away And if she does bleed at that consider invasive GI workup Other medical problems include # Acute hypoxic respiratory failure on high flow oxygen # Severe aortic stenosis moderate MR and TR # End-stage renal disease on hemodialysis Will follow the patient Thank you very much for the opportunity to participate in the care of this patient Time Spent With Patient Time: Total time spent is greater than 50% in coordination of care (as documented) at patient's floor/unit and/or counseling patient:
[2025-03-22] MEDS: HEPARIN SOD INJ 1000 UNIT/ML VIAL 10 ML 3300 UNIT INDWELLCAT (15:44)
--- NOTE | 2025-03-22 17:27 | ESPR_ITS ---
Documentation for date of: 03/22/25 Subjective Subjective Interval history: Patient seen and examined at bedside. Patient shortness of breath has been improving, no use of accessory muscles, and primary team did consult pulmonary. Now on 1L NC. Pulmonary consultation was done with Dr. 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 On high-dose steroids along with nebulizations. Also reviewed her xray and feel there is fluid overload also and recommended to change to HD as PD does not work well after few years. Aligning Inspector at [facility] failed to find extrapulmonary causes of dyspnea and was discovered to have . GPA was in remission for many years after initial diagnosis in [place] treated with prednisone and methotrexate 25 years ago , renal disease manifested later [facility] biopsy was inconclusive and repeat biopsy at [facility] showed findings consistent with GPA, started on rituximab and steroid used but progressed to ESRD over time around 2019 Recommended hemodialysis previously by me also during last admission but daughter, sons who are the caregivers were not ready for it. Other vitals are stable, creatinine at 6.7, and cracles appreciated throughout the lung mason. Will continue to monitor closely and fluid management as per nephrology as patient on dialysis. Abnormal thyroid function tests and primary team ordered further lab tests; ultrasound of the thyroid revealed bilateral vascular solid thyroid nodules, primary team may consider ultrasound-guided fine-needle aspiration of both nodules. On 03/13/2025 Dr. Olivares had about 30 minutes discussion with the patient's daughter regarding starting the patient on HD, at least for couple of months, and she reported she would decide about it with further discussion with other family members and decide about HD. Finally, on 03/15/2025, patient's family agreed for hemodialysis. After successful placement of IR hemodialysis catheter, she is undergoing hemodialysis session this afternoon. 03/20/2025: Patient is currently on intermittent high flow nasal cannula and BiPAP, labs revealing mild worsening in white count to 20.6. The patient's cANCA titre is 1:20 and antiproteinase 3 is 16.[address] Arellano recommended bronchoscopy to rule out any kind of alveolar hemorrhage. The patient was started on CRRT by nephrology. However, patient family members were concerned regarding Antonia's granulomatosis flareup, and wished to proceed with flare up treatment with rituximab and high-dose steroid, as previously the patient had received this treatment during flareup and had improved. Finally, the family members decided to transfer the patient to tertiary referral center for higher level of care. We will continue with diltiazem CD to 360 mg daily due to concern regarding tachycardia. 03/21/2025: The patient is pending transfer to tertiary care center for further management of flare of of Antonia's granulomatosis, and respiratory distress. However, the patient's respiratory distress has significantly been improving since yesterday evening. Currently the patient is saturating 95% on 1 L NC. No use of accessory muscle seen. ICU team was discussing about placing the patient on pulse steroid therapy, but they did not. She is being continued on CRRT. We will continue with diltiazem CD 360 mg daily for tachycardia. Recommended to keep the magnesium and potassium greater than 2 and 4 respectively at all the time. 03/22/2025: The patient was being considered for transfer to higher center for further management of flare up of Antonia's granulomatosis, and respiratory distress. As the patient respiratory distress has significantly improved, and since saturating 95% on 1 L NC, family members are considering outpatient follow-up with [employer] purchasing agent instead of transfer. The patient is supposed to undergo hemodialysis again today. We will continue with diltiazem CD360 mg daily for tachycardia. Recommended to keep the magnesium and potassium greater than 2 and 4 except clearly at all the time. Exam Vital Signs Temp Pulse Resp BP Pulse Ox O2 Del Method O2 Flow Rate 97.6 F 88 18 133/44 H 99 Nasal Cannula 1 03/22/25 14:50 03/22/25 15:16 03/22/25 15:16 03/22/25 15:02 03/22/25 15:16 03/22/25 12:00 03/22/25 15:16 FiO2 25 03/22/25 12:00 Narrative Exam General: Alert and oriented x3. In no acute distress. Eyes: Pupils are equal and reactive to light bilaterally. HEENT: Atraumatic, normocephalic. No JVD noted. Mucosa moist. Cardiovascular: Normal S1 and soft S2,. Tachycardic, 3/6 ejection systolic murmur heard at aortic area, 3/6 holosystolic murmur heard on the mitral area and parasternal area, trace peripheral pitting edema noted. Respiratory: Currently saturating 95% on 1 L NC, no accessory respiratory muscle use appreciated, bilateral air entry present, severe expiratory wheezing noted. Crackles improved Abdomen: Soft, nontender, nondistended. Skin: No rash. Warm to touch. Musculoskeletal: No gross injuries. Able to move all 4 extremities. Neuro: Alert and oriented x3. No focal neuro deficits. Psych: Fairly good mood. Objective Labs 03/22/25 05:50 03/22/25 05:50 Labs: Laboratory Results - last 24 hr 03/21/25 03/21/25 03/22/25 04:39 17:35 05:50 WBC 21.8 H RBC 2.41 L Hgb 7.3 L Hct 21.1 L* MCV 88 MCH 30.3 MCHC 34.6 RDW Std Deviation 48.4 H Plt Count 156 Neut % (Auto) 94 H Lymph % (Auto) 1 L Craig % (Auto) 2 Eos % (Auto) 0 Baso % (Auto) 0 Neut # (Auto) 20.6 H Lymph # (Auto) 0.3 L Craig # (Auto) 0.5 Eos # (Auto) 0.0 Baso # (Auto) 0.0 Immature Gran # (Auto) 0.44 H Absolute Nucleated RBC 0.25 H Immature Gran % 2 H Nucleated RBC % 1 H Retic Count (auto) 1.7 H Absolute Retic 41.7 Immature Retic Fraction 30.7 H Retic Hgb Content CHr 37.5 H Sodium 136 Potassium 4.4 D Chloride 98 Carbon Dioxide 26.9 Anion Gap 11 BUN 34 H Creatinine 2.5 H D Estim Creat Clear Calc 12.2 L eGFR 19 L BUN/Creatinine Ratio 14 Glucose 143 H Calculated Osmolality 281 Calcium 8.5 Corrected Calcium 9.1 Phosphorus 4.8 Magnesium 1.7 Iron 96 TIBC < 40 L Iron Saturation 100 H Unsat Iron Binding 0 L Ferritin 1079 H Total Bilirubin 0.5 AST 35 H ALT 89 H Alkaline Phosphatase 47 Lactate Dehydrogenase 361 H Total Protein 5.2 L Albumin 3.3 L Globulin 1.9 L Albumin/Globulin Ratio 1.7 Random Vancomycin 10.0 Influenza A (Rapid) Negative Influenza B (Rapid) Negative RSV Rapid Negative SARS-CoV-2 Ag (Rapid) Negative ABG Interpretation ABG results: 03/09/25 03/09/25 03/10/25 07:50 18:22 09:05 ABG pH 7.45 ABG pCO2 39 ABG pO2 289 H ABG HCO3 27 H ABG O2 Saturation 101 H ABG Base Excess 2 VBG pH 7.39 7.49 VBG pCO2 49 37 D VBG pO2 70 H 68 H VBG Base Excess 4 H 5 H 03/11/25 03/12/25 03/16/25 10:09 09:44 03:09 ABG pH 7.40 7.41 ABG pCO2 44 46 ABG pO2 80 L D 97 ABG HCO3 27 H 29 H ABG O2 Saturation 95 98 ABG Base Excess 2 4 H VBG pH 7.45 VBG pCO2 40 VBG pO2 39 D VBG Base Excess 4 H 03/18/25 03/19/25 03/20/25 14:17 08:33 07:12 ABG pH 7.36 7.31 L ABG pCO2 43 38 ABG pO2 66 L 80 L ABG HCO3 24 19 L ABG O2 Saturation 91 95 ABG Base Excess -1 -7 L VBG pH 7.45 VBG pCO2 39 VBG pO2 59 H VBG Base Excess 3 Quality Measures Quality Measures none Advance care planning discussed with:: patient and child Assessment & Plan Assessment Current Active Medications: Generic Name Dose Route Start Last Admin Trade Name Freq PRN Reason Stop Dose Admin Acetaminophen 650 mg 03/09/25 14:41 03/16/25 22:38 Acetaminophen 325 Mg Tablet PO 04/08/25 14:40 650 mg Q6H PRN Administration Mild Pain(1-3) or Fever >100.3 Albuterol 5 mg 03/18/25 15:00 03/22/25 15:16 Albuterol Rt 2.5 Mg/0.5 Ml Nebu INH 04/17/25 14:59 5 mg Q4HRRT SABRINA Administration Atorvastatin Calcium 40 mg 03/09/25 21:00 03/21/25 22:16 Atorvastatin Calcium 20 Mg Tablet PO 04/08/25 20:59 40 mg HS SABRINA Administration Dextrose 25 ml 03/12/25 08:16 Dextrose 50%-Water Inj 50 Ml Syringe IV 04/11/25 08:15 Q15MIN PRN BG 50-70 responsive npo pt Dextrose 50 ml 03/12/25 08:16 Dextrose 50%-Water Inj 50 Ml Syringe IV 04/11/25 08:15 Q15MIN PRN BG <50 OR BG <70 & pt unresponsive Diltiazem HCl 360 mg 03/21/25 09:00 03/22/25 09:14 Diltiazem Cd 120 Mg Capcr PO 04/20/25 08:59 360 mg QDAY SABRINA Administration Glucagon 1 mg 03/12/25 08:16 Glucagon Inj 1 Mg Vial IM Q15MIN PRN BG <70, and no IV access Guaifenesin 200 mg 03/16/25 14:00 03/22/25 15:56 Guaifenesin Syrup 200 Mg/10 Ml Udc PO 04/15/25 13:59 200 mg TID SABRINA Administration Protocol Heparin Sodium (Porcine) 3,300 unit 03/15/25 15:49 03/22/25 15:44 Heparin Sod Inj 1000 Unit/Ml Vial 10 Ml INDWELLCAT 03/29/25 15:48 3,300 unit X1 PRN Administration DIALYSIS Insulin Human Lispro 0 unit 03/12/25 11:30 03/22/25 11:42 Insulin Lispro (Admelog) 1 Unit/0.01 Ml Unit SC 04/11/25 11:29 Not Given AC SABRINA Protocol Ipratropium [place] 0.5 mg 03/10/25 15:00 03/22/25 15:16 Ipratropium Rt 0.5 Mg/ 2.5 Ml Nebu INH 04/09/25 14:59 0.5 mg Q4HRRT SABRINA Administration Methimazole 5 mg 03/15/25 08:45 03/22/25 15:56 Methimazole 5 Mg Tablet PO 04/14/25 08:44 5 mg TID SABRINA Administration Methylprednisolone Sodium Succinate 40 mg 03/18/25 21:00 03/22/25 09:15 Methylprednisolone Sod Succ 40 Mg Vial IVP 03/25/25 20:59 40 mg BID SABRINA Administration Ondansetron HCl 4 mg 03/09/25 14:41 Ondansetron Inj 2 Mg/Ml Inj 2 Ml IVP 04/08/25 14:40 Q6H PRN NAUSEA OR VOMITING Protocol Pantoprazole Sodium 40 mg 03/22/25 09:00 03/22/25 09:15 Pantoprazole Inj 40 Mg Vial IVP 04/21/25 08:59 40 mg BID SABRINA Administration Breztri (Budesonide, 2 ea 03/13/25 12:00 03/22/25 07:45 Glycopyrrolate And INH 04/12/25 11:59 2 puff Formoterol) BID SABRINA Administration Polyethylene Glycol 17 gm 03/21/25 09:15 03/22/25 09:35 Polyethylene Glycol 17 Gm Packet PO 04/20/25 09:14 Not Given QDAY SABRINA Sennosides 1 tab 03/21/25 17:15 03/22/25 09:14 Senna Tablet PO 04/20/25 17:14 1 tab QDAY SABRINA Administration Protocol Sevelamer Carbonate 800 mg 03/20/25 12:00 03/20/25 18:45 Sevelamer Carbonate 800 Mg Tablet PO 04/19/25 11:59 Not Given TIDWM SABRINA Sodium Chloride 3 ml 03/11/25 16:26 03/20/25 18:42 Sodium Chloride Rt Annika 0.9% 3 Ml Nebu INH 04/10/25 16:25 3 ml PRN PRN Administration SOLN Plan A 84-year-old female with a past medical history of severe aortic stenosis with a valve area of 0.5 cm?, moderate MR and TR, moderate PAH, preserved EF with diastolic dysfunction, end-stage renal disease on peritoneal dialysis for the last 4 to 5 years, Antonia's granulomatosis diagnosed 25 years ago, chronic severe asthma since her early 20s, history of multifocal atrial tachycardia, 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 1. Acute hypoxic respiratory failure mostly secondary to fluid overload 2/2 failing PD, and 2. Acute asthma exacerbation 3. Severe aortic stenosis with a valve area less than 0.5 cm? 4. End-stage renal disease on peritoneal dialysis for past 4 to 5 years mostly secondary to Antonia's granulomatosis 5. Abnormal thyroid function tests 6. Multifocal atrial tachycardia 7. Valvular heart disease with severe aortic stenosis, moderate MR and TR 8. Moderate pulmonary artery pretension with an RVSP of 55 mmHg 9. Chronic diastolic congestive heart failure 10. 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 Patient presented with acute hypoxic respiratory failure and and was diagnosed with asthma exacerbation. Patient started on high-dose steroids with Solu- Medrol 60 mg every every 8 hours decreased to every 12 hours, along with nebulizations and inhalers. Still continues to be on oxygen and now use of any accessory muscles appreciated. Combination of upper respiratory tract symptoms along with recent emotional stress. Also on IV antibiotics. Patient has been tachycardic On arrival and EKG reviewed. EKG shows irregularly irregular rhythm but most of the time is 100 to 130 bpm which is typical of multifocal atrial tachycardia. Has irregularly irregular rhythm with varying PP and [place] intervals. 3 distinct P wave morphologies are also seen in the lead II. Also patient has underlying lung disease which could contribute's significantly for the multifocal atrial tachycardia Continue rate control with diltiazem 240 mg once daily as no beta-pratik can be given because of the as above. Will uptitrate the diltiazem to 360 mg once daily and if rate is not well-controlled. No anticoagulation required. Patient is mildly elevated troponins at 0.34 and 0.145. Troponin elevation mostly secondary to NSTEMI type II in the setting of supply/demand mismatch. Patient denies any Chest pain or chest pressure at the present moment. EKG showed marked without any acute ST-T changes history of ischemia. Patient is scheduled to have left and right heart cardiac catheterization on Wednesday as outpatient but cannot be done because of her acute hypoxic respiratory failure at the present point of time. Continue Plavix for now and high intensity statin. No beta-pratik because of asthma. No heparin drip required. Patient does have severe as noted above with a valve area of less than 0.5 cm?. Patient also has moderate MR and TR with moderate PAH noted on the previous echocardiogram in November 2024. Workup started as outpatient for the severe and as noted previously was scheduled for the left heart cardiac catheterization and right heart cardiac catheterization which will need to be postponed for now given her acute hypoxic respiratory failure. Will continue further workup of the severe as outpatient. 03/17/2025: Patient seen and examined at bedside. Patient continues to be short of breath, using accessory muscles, and primary team did consult pulmonary. Now on 2L NC. Pulmonary consultation was done with Dr. 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 On high-dose steroids along with nebulizations. Also reviewed her xray and feel there is fluid overload also and recommended to change to HD as PD does not work well after few years. Aligning Inspector at [facility] failed to find extrapulmonary causes of dyspnea and was discovered to have . GPA was in remission for many years after initial diagnosis in [place] treated with prednisone and methotrexate 25 years ago , renal disease manifested later [facility] biopsy was inconclusive and repeat biopsy at [facility] showed findings consistent with GPA, started on rituximab and steroid used but progressed to ESRD over time around 2019 Recommended hemodialysis previously by me also during last admission but daughter, sons who are the caregivers were not ready for it. Other vitals are stable, creatinine at 6.7, and cracles appreciated throughout the lung mason. Will continue to monitor closely and fluid management as per nephrology as patient on dialysis. Abnormal thyroid function tests and primary team ordered further lab tests; ultrasound of the thyroid revealed bilateral vascular solid thyroid nodules, primary team may consider ultrasound-guided fine-needle aspiration of both nodules. On 03/13/2025 Dr. Olivares had about 30 minutes discussion with the patient's daughter regarding starting the patient on HD, at least for couple of months, and she reported she would decide about it with further discussion with other family members and decide about HD. Finally, on 03/15/2025, patient's family agreed for hemodialysis. After successful placement of IR hemodialysis catheter, she is undergoing hemodialysis session this afternoon. 03/20/2025: Patient is currently on intermittent high flow nasal cannula and BiPAP, labs revealing mild worsening in white count to 20.6. The patient's cANCA titre is 1:20 and antiproteinase 3 is 16.[address] Arellano recommended bronchoscopy to rule out any kind of alveolar hemorrhage. The patient was started on CRRT by nephrology. However, patient family members were concerned regarding Antonia's granulomatosis flareup, and wished to proceed with flare up treatment with rituximab and high-dose steroid, as previously the patient had received this treatment during flareup and had improved. Finally, the family members decided to transfer the patient to tertiary referral center for higher level of care. We will continue with diltiazem CD to 360 mg daily due to concern regarding tachycardia. 03/21/2025: The patient is pending [facility] for further management of flare of of Antonia's granulomatosis, and respiratory distress. However, the patient's respiratory distress has significantly been improving since yesterday evening. Currently the patient is saturating 95% on 1 L NC. No use of accessory muscle seen. ICU team was discussing about placing the patient on pulse steroid therapy, but they did not. She is being continued on CRRT. We will continue with diltiazem CD 360 mg daily for tachycardia. Recommended to keep the magnesium and potassium greater than 2 and 4 respectively at all the time. 03/22/2025: The patient was being considered for transfer to [facility] for further management of flare up of Antonia's granulomatosis, and respiratory distress. As the patient respiratory distress has significantly improved, and since saturating 95% on 1 L NC, family members are considering outpatient follow-up with [employer] purchasing agent instead of transfer. The patient is supposed to undergo hemodialysis again today. We will continue with diltiazem CD360 mg daily for tachycardia. Recommended to keep the magnesium and potassium greater than 2 and 4 except clearly at all the time. Management of rest of the medical conditions as per primary team and other consultants. Thank you for the consult and allowing me to participate in the care of the patient. Cardiology will continue to follow. The patient's management plan was discussed with my attending physician MD Kevin Murcia MD, PGY3 Attending Provider Attestation/Addendum I have personally seen and examined the patient separately on the above date of service and discussed the plan of care with the resident. I reviewed the resident Dr. Kevin Sullivan consultation progress note and agree with the resident findings and plan in the note above and have also edited the documentation to reflect my findings and plan. Jori Olivares M.D. Interventional Cardiology
--- NOTE | 2025-03-22 17:29 | ESPR_ITS ---
<Statement entered by Yennifer Martinez MD - 04/02/25 17:55> I reviewed above note and agree with findings and plans. I have also personally examined the patient with medicine team and went over assessment and plan with medical team including legal summer intern and resident physician. Documentation for date of: 03/22/25 Patient downgraded on 03/21/2025 after recieved several rounds of CRRT and close respiratory monitoring. Patient is scheduled for dialysis this evening with possible late discharge. Patient saturating well on one liter of oxygen, rhonchi continues to be present bilaterally. Subjective Subjective Interval history: Patient was seen at bedside today along with her daughter, Dr. Patel. Patient was satting well on 1L NC oxygen and later maintained good saturation off oxygen in the afternoon. Wheezing was still noted on physical examination. Patient underwent resumed hemodialysis session today after not having a session yesterday. Plan for peritoneal dialysis session 03/24. Start outpatient hemodialysis 03/[address] Leo. Patient's family is agreeable to discharge tomorrow and to follow-up with outpatient wastewater treatment operator. Exam Vital Signs Temp Pulse Resp BP Pulse Ox O2 Del Method O2 Flow Rate 97.6 F 88 18 133/44 H 99 Nasal Cannula 1 03/22/25 14:50 03/22/25 15:16 03/22/25 15:16 03/22/25 15:02 03/22/25 15:16 03/22/25 12:00 03/22/25 15:16 FiO2 25 03/22/25 12:00 Narrative Exam General Appearance: Alert & Oriented X3, well-nourished female who is lying in bed in no acute distress. HEENT: Skull symmetrical and atraumatic. Conjunctivae pink and moist. Pupils equal, round, reactive to light and accommodation (PERRL). External ear without lesion or discharge. Straight, nares patient, mucosa pink, no discharge. No thyroid nodule appreciated. No cervical lymphadenopathy. Cardio: Normal Rate and Rhythm with S1 and S2 heart sounds. No murmurs or extra heart sounds auscultated. No bruits on carotid auscultation. No peripheral edema or cyanosis. Lungs: Symmetric with good expansion. Chest and back non-tender. Breath sounds vesicular with wheezing. Abdomen: Non-tender, Non-distended, Normal Reactive Bowel Sounds Neuro: Alert, cooperative, oriented to person, place, and time. Speech clear. CN grossly intact. Upper motor strength 5/5 and Lower motor strength 5/5. Sensation intact. Objective Labs 03/23/25 05:49 03/23/25 05:49 Labs: Laboratory Results - last 24 hr 03/21/25 03/21/25 03/22/25 04:39 17:35 05:50 WBC 21.8 H RBC 2.41 L Hgb 7.3 L Hct 21.1 L* MCV 88 MCH 30.3 MCHC 34.6 RDW Std Deviation 48.4 H Plt Count 156 Neut % (Auto) 94 H Lymph % (Auto) 1 L [place] % (Auto) 2 Eos % (Auto) 0 Baso % (Auto) 0 Neut # (Auto) 20.6 H Lymph # (Auto) 0.3 L [place] # (Auto) 0.5 Eos # (Auto) 0.0 Baso # (Auto) 0.0 Immature Gran # (Auto) 0.44 H Absolute Nucleated RBC 0.25 H Immature Gran % 2 H Nucleated RBC % 1 H Retic Count (auto) 1.7 H Absolute Retic 41.7 Immature Retic Fraction 30.7 H Retic Hgb Content CHr 37.5 H Sodium 136 Potassium 4.4 D Chloride 98 Carbon Dioxide 26.9 Anion Gap 11 BUN 34 H Creatinine 2.5 H D Estim Creat Clear Calc 12.2 L eGFR 19 L BUN/Creatinine Ratio 14 Glucose 143 H Calculated Osmolality 281 Calcium 8.5 Corrected Calcium 9.1 Phosphorus 4.8 Magnesium 1.7 Iron 96 TIBC < 40 L Iron Saturation 100 H Unsat Iron Binding 0 L Ferritin 1079 H Total Bilirubin 0.5 AST 35 H ALT 89 H Alkaline Phosphatase 47 Lactate Dehydrogenase 361 H Total Protein 5.2 L Albumin 3.3 L Globulin 1.9 L Albumin/Globulin Ratio 1.7 Random Vancomycin 10.0 Influenza A (Rapid) Negative Influenza B (Rapid) Negative RSV Rapid Negative SARS-CoV-2 Ag (Rapid) Negative ABG Interpretation ABG results: 03/09/25 03/09/25 03/10/25 07:50 18:22 09:05 ABG pH 7.45 ABG pCO2 39 ABG pO2 289 H ABG HCO3 27 H ABG O2 Saturation 101 H ABG Base Excess 2 VBG pH 7.39 7.49 VBG pCO2 49 37 D VBG pO2 70 H 68 H VBG Base Excess 4 H 5 H 03/11/25 03/12/25 03/16/25 10:09 09:44 03:09 ABG pH 7.40 7.41 ABG pCO2 44 46 ABG pO2 80 L D 97 ABG HCO3 27 H 29 H ABG O2 Saturation 95 98 ABG Base Excess 2 4 H VBG pH 7.45 VBG pCO2 40 VBG pO2 39 D VBG Base Excess 4 H 03/18/25 03/19/25 03/20/25 14:17 08:33 07:12 ABG pH 7.36 7.31 L ABG pCO2 43 38 ABG pO2 66 L 80 L ABG HCO3 24 19 L ABG O2 Saturation 91 95 ABG Base Excess -1 -7 L VBG pH 7.45 VBG pCO2 39 VBG pO2 59 H VBG Base Excess 3 Quality Measures Quality Measures none Advance care planning discussed with:: patient Assessment & Plan Assessment Current Active Medications: Generic Name Dose Route Start Last Admin Trade Name Freq PRN Reason Stop Dose Admin Acetaminophen 650 mg 03/09/25 14:41 03/16/25 22:38 Acetaminophen 325 Mg Tablet PO 04/08/25 14:40 650 mg Q6H PRN Administration Mild Pain(1-3) or Fever >100.3 Albuterol 5 mg 03/18/25 15:00 03/22/25 15:16 Albuterol Rt 2.5 Mg/0.5 Ml Nebu INH 04/17/25 14:59 5 mg Q4HRRT SABRINA Administration Atorvastatin Calcium 40 mg 03/09/25 21:00 03/21/25 22:16 Atorvastatin Calcium 20 Mg Tablet PO 04/08/25 20:59 40 mg HS SABRINA Administration Dextrose 25 ml 03/12/25 08:16 Dextrose 50%-Water Inj 50 Ml Syringe IV 04/11/25 08:15 Q15MIN PRN BG 50-70 responsive npo pt Dextrose 50 ml 03/12/25 08:16 Dextrose 50%-Water Inj 50 Ml Syringe IV 04/11/25 08:15 Q15MIN PRN BG <50 OR BG <70 & pt unresponsive Diltiazem HCl 360 mg 03/21/25 09:00 03/22/25 09:14 Diltiazem Cd 120 Mg Capcr PO 04/20/25 08:59 360 mg QDAY SABRINA Administration Glucagon 1 mg 03/12/25 08:16 Glucagon Inj 1 Mg Vial IM Q15MIN PRN BG <70, and no IV access Guaifenesin 200 mg 03/16/25 14:00 03/22/25 15:56 Guaifenesin Syrup 200 Mg/10 Ml Udc PO 04/15/25 13:59 200 mg TID SABRINA Administration Protocol Heparin Sodium (Porcine) 3,300 unit 03/15/25 15:49 03/22/25 15:44 Heparin Sod Inj 1000 Unit/Ml Vial 10 Ml INDWELLCAT 03/29/25 15:48 3,300 unit X1 PRN Administration DIALYSIS Insulin Human Lispro 0 unit 03/12/25 11:30 03/22/25 11:42 Insulin Lispro (Admelog) 1 Unit/0.01 Ml Unit SC 04/11/25 11:29 Not Given AC SABRINA Protocol Ipratropium [place] 0.5 mg 03/10/25 15:00 03/22/25 15:16 Ipratropium Rt 0.5 Mg/ 2.5 Ml Nebu INH 04/09/25 14:59 0.5 mg Q4HRRT SABRINA Administration Methimazole 5 mg 03/15/25 08:45 03/22/25 15:56 Methimazole 5 Mg Tablet PO 04/14/25 08:44 5 mg TID SABRINA Administration Methylprednisolone Sodium Succinate 40 mg 03/18/25 21:00 03/22/25 09:15 Methylprednisolone Sod Succ 40 Mg Vial IVP 03/25/25 20:59 40 mg BID SABRINA Administration Ondansetron HCl 4 mg 03/09/25 14:41 Ondansetron Inj 2 Mg/Ml Inj 2 Ml IVP 04/08/25 14:40 Q6H PRN NAUSEA OR VOMITING Protocol Pantoprazole Sodium 40 mg 03/22/25 09:00 03/22/25 09:15 Pantoprazole Inj 40 Mg Vial IVP 04/21/25 08:59 40 mg BID SABRINA Administration Breztri (Budesonide, 2 ea 03/13/25 12:00 03/22/25 07:45 Glycopyrrolate And INH 04/12/25 11:59 2 puff Formoterol) BID SABRINA Administration Polyethylene Glycol 17 gm 03/21/25 09:15 03/22/25 09:35 Polyethylene Glycol 17 Gm Packet PO 04/20/25 09:14 Not Given QDAY SABRINA Sennosides 1 tab 03/21/25 17:15 03/22/25 09:14 Senna Tablet PO 04/20/25 17:14 1 tab QDAY SABRINA Administration Protocol Sevelamer Carbonate 800 mg 03/20/25 12:00 03/20/25 18:45 Sevelamer Carbonate 800 Mg Tablet PO 04/19/25 11:59 Not Given TIDWM SABRINA Sodium Chloride 3 ml 03/11/25 16:26 03/20/25 18:42 Sodium Chloride Rt Annika 0.9% 3 Ml Nebu INH 04/10/25 16:25 3 ml PRN PRN Administration SOLN Plan Plan Patient is an 84-year-old female with a past medical history CHF HFpEF 55 to 60% (11/23/2024), systolic dysfunction, moderate PAH 55, moderate to severe with V-max 3.8, ESRD status post peritoneal dialysis dialysis, chronic asthma since early 20s, 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 #Acute on chronic hypoxic respiratory failure #Asthma exacerbation #Concern for HCAP #Flash pulmonary edema, secondary to severe Patient presented to the ED via EMS with a two day history of worsening shortness of breath. Patient's family noticed the patient wheezing while receiving dialysis and called EMS. While in the emergency room department, several episode of spO2 80s on nasal cannula-->transitioned to Bipap. While in ER, increased work of breathing, RR high 30s/40s with abdominal breathing noted, increase in FiO 10-->30. Repeat ABG pH 7.45, pO2 289, HC03 27-->decrease in FIO2 to 20. Daughter at bedside noted an URI several days ago and is concern this may have triggered current exacerbation. Patient has already received antibiotics, azithromycin Course Completed (03/09/2025-03/12/2025) & Ceftriaxone 03/10/2025- 03/11/2025 Levaquin 250 mg PO QD for possible pneumonia (03/17-03/18/2025. Noted improvement in chest imaging following hemodialysis, but persistent infiltrate right lung, possibly pneumonia, hospital-acquired. Patient stopped vancomycin and cefepime after 12 days per ICU, Dr. Griggs recommendation. Sputum cultures ordered. Plan: ? Every 4 hours nebulizations ? Chest physiotherapy ? Guaifenesin 200 mg 3 times daily ? Continue Methylprednisolone 40 twice daily ? Follow sputum cultures ? Blood glass 03/19: pH 7.36 pCO2 43 pO2 66 HCO3 24 O2 sat 91 -CXR 03/21: Demonstrated right upper lobe pneumonia; patient is stable and afebrile; stopped antibiotics per ICU recommendation, Dr. Griggs #ESRD, Hemodialysis #Periotoneal Dialysis, Stopped #ESRD secondary to Granulomatosis Per patient history, follows Dr. Amezcua and Dr. Coley. Patient developed ESRD several years ago likely secondary to Granulomatosis. Consult nephrology for scheduled daily dialysis. Plan -Hemodialysis session today 03/22 ; peritoneal dialysis scheduled for 03/24; start outpatient hemodialysis 03/[address] Leo -03/19 CRRT removed 2.5L of fluid; 03/20 CRRT removed 1.5L of fluid; 03/21 CRRT not done -Hemodialysis 03/16: removed 800 mL, 03/17 1.0 L, 03/18 no dialysis -Strict in and outs. --10,000 unit ProCrit Epoetin-Andrew given 03/19 -Avoid nephrotoxins, consider renal dosing -Nephrology Consulted, Dr. Amezcua, appreciate recommendations. -Peritoneal fluid culture: no growth #Acute on Chronic Congestive Heart Failure, worsening #CHF HFpEF 60-65% (03/12/2025) #Mild Pulmonary Vascular Congestion #Moderate to Severe Aortic Stenosis, AV vmax 3.8 m #Severe Mitral Regurgitation #Moderate PAH, 55 mmHg Patient likely acute on chronic congestive heart failure this, may only be mild exacerbation as pulmonary vascular congestion was less prominent as compared to other episode. Previous CHF exacerbation BNP 1691.Acute on chronic CHF exacerbation likely triggered by asthma exacerbation. Diagnostics: Echo (03/12/2025): Normal LV size and function. EF 60-65%. Diastolic dysfunction present but cannot be graded due to arrhythymia.Normal RV size and function. Estimated RVSP moderately elevated RVSP 50-55 mm hg.Moderate to Severe . AV vmax 3.8 m/s, Mean PG 38 mm hg. LATRICE 0.5 sq cm. -BNP 03/09 345; 03/15 1608 -Chest x-ray (03/10/2025): Mild chronic heart failure pattern, prominent vascular congestion-overall mild chornic heart failure -Chest x-ray (03/16/2025): Chronic heart failure pattern with vascular congestion, possible repeat CXR Plan: -Patient started on bipap -Strict Ins and Outs -Fluid Restrictions 1800 -Oxygen support -Cardiology consult Dr. 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 Arellano, for possible bronchoscopy to investigate alveolar hemorrhage, appreciate recommendations -Possible to start steroids for long-term management and rituximab infusion for short-term flare-ups per ICU recommendations, Dr. Griggs -Patient's family agreeable to outpatient rheumatology follow-up #Acute Anemia Patient FOBT positive overnight 03/17 Pertinent labs: 03/21 MCV 86 RBC 2.54 Hgb 7.6 Hct 21.8; 03/22 MCV 88 RBC 2.41 Hgb 7.3 Hct 21.1 Plan: -GI consult, Dr. 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 given aortic stenosis and GI bleeding, no plan for extensive work-up at this time given patient's general condition and is agreeable to discharge, appreciate recommendations -Iron Panel 03/21: Iron 96 TIBC <40 Iron Sat 100 -Ferritin 03/21: 1079 -Haptoglobin, pending results -vWF panel, pending results #Hyperkalemia, resolved #Hyperphosphatemia, resolved Patient had 03/20 overnight potassium of 6.6 treated to 5.9 with Calcium Gluconate 1 g Pertinent labs: Potassium downtrending from 5.9 on 03/20 to 3.4 on 03/21; Phosphorus from 4.5 03/20 to 2.2 03/21; 03/22 K 4.4 Ph 4.8 Patient had 03/20 overnight potassium of 6.6 treated to 5.9 with Calcium Gluconate 1 g Plan: -Continue to monitor renal panel and electrolytes -Recommended Sevelamer powder 800 mg TID for hyperphospatemia, per Nephrology Dr. Amezcua, appreciate recommendations #Constipation Patient has not been able to stool consistently, producing hard, pellet-like stool. Patient has been given senna, docusate, lactulose, glycerin. KUB negative for obstructive patter. Plan: -Continue lactulose 60 mg PO TID PRN -Oil enema, followed by possible fecal disimpaction if necessary #Concern for Hyperthyroidism Noted suppressed TSH and elevated T4 levels, limited utility of thyroid function test during acute illness and hospitalization. the patient will eventually require repeat thyroid function test once discharged to confirm thyroid disorders. Also patient has longstanding history of MAT likely secondary to pulmonary disorder, less likely influenced by thyroid. -Thyroid US: bilateral vascular thyroid nodules, consider fine needle aspiration; 03/15 TSH 0.02 T4 1.62 -03/11 TPO 1 TSI 89 -Chest CT 03/18 demonstrated right thyroidmegaly with multiple right lobe nodules -Repeat thyroid function testing in 3 to 4 weeks after discharge, and follow-up with casting operator -Continue methimazole 5 mg PO TID #MAT #Atrial Fibrillation, less likely #EKG Abnormalities Patient has a past medical history of previous reported Atrial Fibrillation, per daughter, was told it was less likely atrial fibrillation, decision was made for no Eliquis and only Plavix on board for history of CVA. This EKG read A.fib w/ rvr but not all leads irregular and some noted with possible p waves. r waves present, no deep q waves noted. V1/V2 possible t wave abnormalities. 03/14/2025 EKG ordered, noted HR 100 likely MAT, likely secondary to levalbuterol. Consider decreasing Levalbuterol doses as patient's work of breathing improves. 03/20 EKG demonstrated sinus rhythm and no current arrhythmia's Plan: -Continue 360 mg PO QD for tachycardia per cardiology recommendation Dr. Olivares -AVOID BETA BLOCKERS GIVEN ASTHMA EXACERBATION #Mild Transaminitis #Possible Hepatopulmonary Syndrome Pertinent labs: 03/09 AST/ALT 46/46; 03/11: 37/63; 03/14: 36/105; 03/16: 48/111 03/17: 49/96 03/19: 37/70; 03/21 50/84 Alk Phos 49 03/20 Liver US: CBD 0.4 cm Pancreatic Head 2.5 cm 11.9 cm fatty infiltration of liver normal hepatopedal flow Plan: Monitor and trend liver enzymes if concern, consider hepatitis panel Possible hepatopulmonary syndrome, due to potential fluid overload seen on CXR 03/16 #Mild Troponemia #NSTEMI, type II likely demand ischemia Mild elevation in Troponin likely in the setting of demand ischemia from asthma exacerbation. Denied chest pain, palpitations, or chest pressure. No st elevation noted. Plan -Repeat Troponin 03/10 peaked at 0.141. #Single Episode of Hematemsis #Normocytic Normochromic Anemia Pertinent lab values 03/15 MCV 84 Hgb 9.8 Hct 27.6 RBC 3.27 03/16 MCV 87 Hgb 9.5 Hct 27.8 RBC 3.19 Given past medical history of GERD, consider gastric ulcers-given reported coffee ground emesis vs Granulomatosis flare vs lower GI bleed. Plan: -Monitor hgb >7 goal -Consider occult blood AM, if worsening drop -Consider gastroenterology consult with Dr. Abraham, if repeat episodes of coffee ground emesis #History of CVA Past medical history of CVA Plan -plavix given coffee ground emesis. #GERD #Gastritis Per the patient's daughter, the patient recently experienced coffee ground emesis w/ history of GERD. Plan: Continue IV protonix 40 mg BID #history of Fracture Neck of Right Femur Patient underwent surgical repair of closed right hip neck fracture on 12/01/[address] Lee Plan: Monitor for possible rehabilitation DVT prophylaxis: No DVT prophylaxis in setting of suspected GI bleed and anemia GI prophylaxis: IV Protonix 40 mg BID Diet: Renal Diet Lines: Peripheral IV Code status: Full code Case reviewed with attending Dr. Martinez and senior resident Dr. Miller. Nneka Sena MS-4 - The patient's plan was discussed with attending Dr. Juan Neely MD Internal Medicine PGY-3 Attending Provider Attestation/Addendum 84-year-old female with multiple comorbidities including heart failure with preserved EF with EF 55-60%, severe aortic stenosis with V-max 3.8, pulmonary hypertension, granulomatosis with polyangiitis with subsequent end-stage renal disease on peritoneal dialysis history of ischemic CVA with right-sided hemiparesis, hypertension, hyperlipidemia presented to the ER with shortness of breath found to have acute hypoxic respiratory failure multifactorial including asthma exacerbation and fluid overload state. Initially, patient did require BiPAP and advised to continue IV steroids, IV antibiotic therapy and plan for peritoneal dialysis. Furthermore, patient also has moderate to severe aortic stenosis with pulmonary arterial hypertension and plan to consult cardiology. Overnight, patient respiratory status improving currently on 10 L oxy mask. Discussed case with pulmonary and nephrology team and plan for a TDC placement for possible hemodialysis initiation. In addition, plan to continue IV steroids, IV antibiotic and peritoneal dialysis. Appreciate cardiology, pulmonary and nephrology input. I reviewed above note and agree with findings and plans. I have also personally examined the patient with medicine team and went over assessment and plan with medical team including legal summer intern and resident physician.
--- NOTE | 2025-03-22 19:36 | PC.NURSE ---
Pt family brought in food to feed patient for lunch and dinner today
[2025-03-22] MEDS: ATORVASTATIN CALCIUM 20 MG TABLET 40 MG PO (21:22)
[2025-03-23] VITALS (14 sets, daily range): BP systolic 122–141; BP diastolic 55–66; PULSE 79–112; RESP 14–31; TEMP 36.1–36.4; O2SAT 92–100; BMI 26.4
[2025-03-23] MEDS: ALBUTEROL RT 2.5 MG/0.5 ML NEBU 5 MG INH ×4 (01:57→14:23)
[2025-03-23] MEDS: IPRATROPIUM RT 0.5 MG/ 2.5 ML NEBU INH ×4 (01:58→14:23)
[2025-03-23] MEDS: guaiFENesin SYRUP 200 MG/10 ML UDC PO ×2 (05:16→14:44)
[2025-03-23] MEDS: METHIMAZOLE 5 MG TABLET PO ×2 (05:16→14:43)
[2025-03-23] MEDS: BREZTRI 2 EA INH (06:11)
[2025-03-23 06:33] LABS: Basophils # (Auto) 0.0 Thou/mm3 (0.0-0.2); Basophils % (Auto) 0 % (0-2.5); Eosinophils # (Auto) 0.0 Thou/mm3 (0.0-0.5); Eosinophils % (Auto) 0 % (0-10); Hematocrit 22.4 % (36.0-46.0); Immature Granulocytes Auto 0.57 Thou/mm3 (0.00-0.00); Lymphocytes # (Auto) 0.3 Thou/mm3 (1.0-4.8); Lymphocytes % (Auto) 1 % (10-50); Mean Corpuscular HGB Conc 33.0 g/dl (31.0-37.0); Mean Corpuscular Hemoglobin 30.0 pg (25.0-35.0); Mean Corpuscular Volume 91 fL (80-100); Monocytes # (Auto) 0.6 Thou/mm3 (0.0-0.8); Monocytes % (Auto) 2 % (0-12); Neutrophils # (Auto) 22.5 Thou/mm3 (1.8-7.7); Neutrophils % (Auto) 94 % (37-80); Nucleated Red Blood Cell # 0.77 Thou/mm3 (0.00-0.00); Nucleated Red Blood Cell % 3 /100 WBC (0); Platelet Count 123 Thou/mm3 (140-440); RDW Standard Deviation 49.9 fL (36.4-46.3); Red Blood Count 2.47 Miln/mm3 (4.00-5.20); White Blood Count 24.0 Thou/mm3 (3.6-11.0)
[2025-03-23 06:51] LABS: Hemoglobin 7.4 g/dL (12.0-16.0)
[2025-03-23 07:04] LABS: Alanine Aminotransferase 85 U/L (10-49); Albumin, Serum 3.4 gm/dL (3.4-4.8); Albumin/Globulin Ratio 1.9 (1.2-2.2); Alkaline Phosphatase 47 U/L (46-116); Anion Gap 10 (7-16); Aspartate Amino Transferase 28 U/L (0-34); BUN/Creatinine Ratio 15 Ratio (12-20); Bilirubin,Total 0.4 mg/dL (0.3-1.2); Blood Urea Nitrogen 35 mg/dL (9-23); Calcium 8.4 mg/dL (8.3-10.6); Calcium (Corrected) 8.9 mg/dL (8.5-10.1); Carbon Dioxide 27.5 mMol/L (20.0-31.0); Chloride 98 mMol/L (98-107); Creatinine (Component) 2.3 mg/dL (0.6-1.3); Estimated Creatinine Clearance 13.3 mL/min (>60); Globulin 1.8 gm/dL (2.3-3.5); Glucose 140 mg/dL (74-106); Magnesium 2.4 mg/dL (1.6-2.6); Osmolality,Calculated 280 (275-295); Phosphorous 4.2 mg/dL (2.4-5.1); Potassium 4.2 mMol/L (3.4-5.1); Sodium 135 mMol/L (136-145); Total Protein 5.2 gm/dL (5.7-8.2); eGFR 21 See Note
--- NOTE | 2025-03-23 07:40 | PD.RESDS ---
Planned Discharge Date 03/23/25 DS: Providers Provider Date of admission: 03/09/25 14:41 Primary care physician: Jori Woodruff Admitting Provider: Yennifer Martinez MD Attending Provider on Admission: Yennifer Martinez MD Consults: 03/09/25 14:53 Consult to Nephrology Stat Comment: Consulting Provider: Temo Amezcua Instructions: Patient uses peritoneal dialysis 03/09/25 23:58 Referral Infection Control Routine Comment: Reason for Infection Control Referral: Current Dialysis Patient 03/10/25 10:08 Consult to Cardiology Urgent Comment: Consulting Provider: Jori Olivares 03/11/25 10:55 Consult to Pulmonology Urgent Comment: asthma Consulting Provider: Al Arellano I 03/16/25 10:49 Consult to Filter Filler Urgent Comment: Consulting Provider: Veronique Griggs 03/17/25 02:44 Consult to Gastroenterology Stat Comment: GIB, Hb drop Consulting Provider: Peter Abraham 03/19/25 10:30 Continous [Referral Continuous Nebulizer] Routine Comment: Reason for Consult: wheezing 03/19/25 18:15 Consult to Infectious Diseases Stat Comment: unresolving PNA Consulting Provider: Anthony Beaver 03/20/25 11:09 Referral Speech Therapy Routine Comment: 03/20/25 12:55 Referral - Floor Associate Stat Service Needed for Transfer: Rheumatology Addl Comments:: Suspected Relapse of Donna's Also Infectious Disease, Pneumonia 03/23/25 07:29 Referral Physical Therapy Stat Comment: Physician Instructions: Instructions: Need oxygen walk test to order O2, plan to discharge early today. 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 Patient initially presented on 03/09/2025 presented with chief complain of shortness of breath and admitted for acute on chronic hypoxic respiratory failure secondary to asthma exacerbation and subsequently developed acute on chronic CHF exacerbation required ICU admission for CRRT dialysis now transitioning to hemodilaysis, and concern for granulomatosis w polyangiitis flare up given elevated serum markers. ED Course: Patient presented to the ED with a one day history of worsening shortness of breath. Patient stated that she had not experienced an episode as severe before. Patient endorsed a dry cough as well. Per patient's daughter, patient attempted treatment with prednisone at home, but it irritated her stomach. Per daughter, patient experienced an upper respiratory infection a couple days prior. In addition, patient had a single episode of coffee-ground emesis a couple days prior to presentation. Patient denied fever, chills, and chest pain. CXR demonstrated findings consistent with mild heart failure. EKG demonstrated findings consistent with multifocal atrial tachycardia and possible atrial fibrillation given irregular R-R intervals. Pertinent labs include: WBC 10.3 RBC 3.94 Hgb 10.5 Hct 34.6 ABG pH 7.45 PCO2 39 Na 131 Cl 90 BUN 56 Cr 7.3 GFR 6 Lactic Acid 2.8. Treatments provided include: albuterol 5 mg INH x1 levalbulterol 1.25 mg INH x1 methylprednisolone 125 mg IVPx1 famotidine 20 mg IVPx1 sodium chloride nebulizer 3 mlx1 for breathing, NS 500 ml for fluid resuscitation, pantoprazole 40 mg IVPx1 and sucralfate 1 mg POx1 for GI prophylaxis, and diltiazem 240 mg POx1 for heart rate control. Hospital Course: Patient was admitted for acute on chronic hypoxic respiratory failure secondary to asthma exacerbation and fluid overload due to ESRD and treated for the additional listed conditions. Upon admission, patient required bipap and eventually transitioned high flow nasal cannula secondary to asthma exacerbation as physical exam noted decreased vesicular breath sounds bilaterally and wheezing through out all lung mason. Breathing treatments during hospitalization included: levalbuterol 1.25 mg INH Q4HRRT uptitrated to albuterol 5 mg, ipratropium 0.5 mg Q4HRRT, budesonide BIDRT, guaifenesin 200 mg TID, methylprednisolone 60 mg IVP BID titrated down to 40 mg IVP BID, and the patient's own breztri inhaler. Despite aggressive medical management with breathing treatments and steriods, patients work of breathing progressively worsened likely secondary to acute on chronic CHF exacerbationin the setting of moderate to severe aortic stensois. Patient required ICU upgrade on 03/19/2025 secondary to CRRT dialysis given increased work of breathing, CHF exacerbation, with pulmonary vascular congestion and increased BNP of 1608. Pulmonology consulted and cardiology consulted. Patient eventually downgraded after several rounds of CRRT in ICU, on nasal cannual 1 liter of oxygen on 03/21/2025. Concern for underlying flare as triggering event as c-ANCA 1:20 Anti-Proteinase 16.9. Patient's family agreed to outpatient rheumatology consult. In regards to ESRD, patient transitioned from peritoneal dialysis to hemodialysis on 03/15 and underwent CRRT in the ICU from on 03/19 and 03/20. Patient's BUN decreased to as low as 5, Cr improved to as low as 0.5, and GFR increased to >60. Patient underwent inpatient hemodialysis session 03/22 with 1.5 L of fluid removed. Acute on Chronic CHF HFpEF 60-65% (03/2025) w/ moderate to Severe Aortic Stenosis: Echo 03/12 showed an ejection fraction of 60-65%, RVSP 55-60 mmHg, LATRICE 0.5 cm2, AV max 3.8 m/s, PG 38 mmHg. Pertinent labs 03/15 BNP 1608. Treatment included fluid restriction and patient will follow up with cardiology, Dr. Olivares, outpatient for possible TAVR. Patient's home medicaiton of Diltiazem 240 mg once daily continued inpatient and up-titrated to 360 mg once daily given persistent Multifocal Atrial Tachycardia, likely worsening with asthma exacerbation and CHF exacerbation. Anemia, likely of chronic disease: During admission, patient developed acute anemia. FOBT positive on 03/17. Pertinent labs: Hgb 7.4 Hct 22.4 Ferritin 1079 Iron 96 TIBC 40 Iron Sat 100. Per consult with GI, Dr. 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 Treatment included: pantoprazole 40 mg IVP BID. Hyperthyroidism: Pertinent labs: 03/11 TSH 0.02 T4 1.62 TPO 1 TSI 89. Treatment included starting methimazole 5 mg PO TID. Follow outpatient with Endocrinology given several thyroid notdules noted on Thyroid US (03/10/2025): Bilateral Vascular solid thyroid nodules, noted. Patient was treated with azithromycin (03/09-03/12) and ceftriaxone (03/10-03/11) as prophylaxis. CXR 03/15 demonstrated bilateral pneumonia for which the patient was treated with levaquin from 03/17-03/18, vancomycin, and cefepime. CXR 03/20 demonstrated improvement of pneumonia. Patient tolerated medications well. Patient to be discharged with oxygen. Instructions: -New Dose Diltiazem 360 mg once daily for heart rate -New medication of Methimazole 5 mg oral three times a day for thyroid. -Please follow up with director public service and consider outpatient biopsy for thyroid. -Prednisolone 21 day taper pack -Continue all medication as prescribed -Please Follow up with nephrology, Dr. Leo. Start peritoneal dialysis at home for Wednesday and then follow up with hemodialysis on Wednesday. Please contact your associate application developer as soon as possible. -Please follow up with cardiology, Dr. Olivares, within one week of discharge -consider outpatient follow up with rheumatology, Dr. Moya -Please follow up with your primary care provider within one week of discharge -If your symptoms worsen,please seek immediate medical attention and return to your nearest emergency room -If you do not have a primary care provider, you may follow up at the [facility] at [facility] [address], [place] [address], #Acute on chronic hypoxic respiratory failure #Asthma exacerbation #ESRD, Hemodialysis #Periotoneal Dialysis, Stopped #ESRD secondary to Granulomatosis #Acute on Chronic Congestive Heart Failure, worsening #CHF HFpEF 60-65% (03/12/2025) #Mild Pulmonary Vascular Congestion #Moderate to Severe Aortic Stenosis, AV vmax 3.8 m #Severe Mitral Regurgitation #Moderate PAH, 55 mmHg #Flash pulmonary edema, secondary to severe #History of Grunulomatosis polyangiitis, formerly, Antonia's granulomatosis #Acute on Chronic Congestive Heart Failure, worsening #Hyperthyroidism #MAT #Atrial Fibrillation, less likely #EKG Abnormalities #Pneumonia #Hyperkalemia, resolved #Hyperphosphatemia, resolved #Constipation? #Mild Transaminitis #Possible Hepatopulmonary Syndrome #Mild Troponemia #NSTEMI, type II likely demand ischemia #Single Episode of Hematemsis #Normocytic Normochromic Anemia #History of CVA??? #GERD #History of Fracture Neck of Right Femur Case reviewed with attending Dr. Martinez and senior resident Dr. Miller. Nneka Nathen, MS-4 - The patient's plan was discussed with attending Dr. Juan Miller MD PGY2 Internal Medicine Time Spent with Patient Time attestation: Total time spent providing and/or coordinating discharge services: Time spent: Greater than 30 minutes Exam Vital Signs Temp Pulse Resp BP Pulse Ox O2 Del Method O2 Flow Rate 97.6 F 90 31 H 122/55 L 100 Nasal Cannula 1 03/23/25 04:00 03/23/25 06:12 03/23/25 06:12 03/23/25 04:00 03/23/25 06:12 03/23/25 04:00 03/23/25 06:12 FiO2 03/22/25 12:00 Narrative Exam General Appearance: Alert & Oriented to person, place, time, and condition; well-nourished female who is lying in bed in no acute distress. HEENT: Skull symmetrical and atraumatic. Conjunctivae pink and moist. Pupils equal, round, reactive to light and accommodation (PERRL). External ear without lesion or discharge. Straight, nares patient, mucosa pink, no discharge. No thyroid nodule appreciated. No cervical lymphadenopathy. Cardio: Normal Rate and Rhythm with S1 and S2 heart sounds. No murmurs or extra heart sounds auscultated. No bruits on carotid auscultation. No peripheral edema or cyanosis. Lungs: Symmetric with good expansion. Chest and back non-tender. Breath sounds vesicular with wheezing. Abdomen: Non-tender, Non-distended, Normal Reactive Bowel Sounds Neuro: Alert, cooperative, oriented to person, place, and time. Speech clear. CN grossly intact. Upper motor strength 5/5 and Lower motor strength 5/5. Sensation intact. Discharge Plan Plan Patient Disposition: Home w/HOME HEALTH Patient condition on transfer: Stable Care Plan Goals: Instructions: -New Dose Diltiazem 360 mg once daily for heart rate -New medication of Methimazole 5 mg oral three times a day for hyperthyroidism. -Please follow up with director public service and consider outpatient biopsy for thyroid. -Prednisolone 21 day taper pack -Continue all medication as prescribed -Please Follow up with nephrology, Dr. Leo. Start peritoneal dialysis at home for Wednesday and then follow up with hemodialysis on Wednesday. Please contact your associate application developer as soon as possible. -Please follow up with cardiology, Dr. Olivares, within one week of discharge -consider outpatient follow up with rheumatology with Dr Moya -Please follow up with your primary care provider within one week of discharge -If your symptoms worsen,please seek immediate medical attention and return to your nearest emergency room -If you do not have a primary care provider, you may follow up at the [facility] at [address] [place] [address] [address], [place] [address], Prescriptions/Referrals Prescriptions/Med Rec: New methimazole 5 mg Tablet 5 mg PO TID 30 Days Qty: 90 0RF diltiazem HCl 360 mg capsule,extended release 24hr 360 mg PO QDAY 30 Days Qty: 30 0RF prednisolone 5 mg (21 tabs) tablets,dose pack 5 mg PO QDAY 21 Days Qty: 21 0RF Rx Instructions: 21 day russ, please follow taper instructions lactulose [Constulose] 10 gram/15 mL solution 10 g PO QDAY PRN (Reason: constipation) Qty: 1200 0RF Continued megestrol 400 mg/10 mL (40 mg/mL) suspension 40 mg PO QDAY Qty: 240 0RF ondansetron 4 mg tablet,disintegrating 4 mg PO Q6H PRN (Reason: nausea and vomiting) Qty: 30 0RF Rx Instructions: disintegrating tablet clopidogrel [Plavix] 75 MG tablet 75 mg PO QDAY Qty: 30 0RF atorvastatin 40 mg Tablet 40 mg PO QDAY acetaminophen [Tactinal] 325 mg tablet 650 mg PO Q6H PRN (Reason: fever or pain) Breztri Aerosphere 160-9-4.8 mcg/actuation HFA aerosol inhaler 2 inh inhalation BID Qty: 10.7 3RF albuterol sulfate [Ventolin HFA] 90 mcg/actuation Hfa Aerosol Inhaler 2 puff INHALATION QID PRN (Reason: sob) 30 Days Qty: 2 0RF pantoprazole 20 mg tablet,delayed release (DR/EC) 20 mg PO BID Qty: 60 0RF Discontinued cholestyramine (with sugar) 4 gram powder in packet 4 g PO TID PRN (Reason: diarrhea ) Qty: 21 0RF Rx Instructions: administer w/meal; avoid other meds within 1hr before or 4-6hr after dose Titrate to bowel movements as needed. diltiazem HCl 240 mg capsule,extended release 24hr 240 mg PO DAILY Referrals: Sukhdeep Leo MD [Physician] - Jori Olivares MD [Physician] - Saji Moya MD [Referring Provider] - Jori Woodruff [Primary Care Provider] - Patient/Caregiver Discharge Instructions Discharge Activity: as per physical therapy Other Discharge Activity Instructions:: Instructions: -New Dose Diltiazem 360 mg once daily for heart rate -New medication of Methimazole 5 mg oral three times a day for hyperthyroidism. -Please follow up with director public service and consider outpatient biopsy for thyroid. -Prednisolone 21 day taper pack -Continue all medication as prescribed -Please Follow up with nephrology, Dr. Leo. Start peritoneal dialysis at home for Wednesday and then follow up with hemodialysis on Wednesday. Please contact your associate application developer as soon as possible. -Please follow up with cardiology, Dr. Olivares, within one week of discharge -consider outpatient follow up with rheumatology with Dr Moya -Please follow up with your primary care provider within one week of discharge -If your symptoms worsen,please seek immediate medical attention and return to your nearest emergency room -If you do not have a primary care provider, you may follow up at the [facility] at [facility] [address], [place] [address], Print Language: Lithuanian Stand Alone Forms: Saranya Award Info., Patient Portal Info Letter Discharge Order Discharge Orders: Discharge (Routine); Ordered 03/23/25 Ordered By: Jenelle Miller Quality Discharge Quality Measures VTE prophylaxis
--- NOTE | 2025-03-23 08:35 | PC.PT ---
Received PT Eval to perform O2 ambulation test. PT informed Dr. Miller that nursing staff is able to complete O2 ambulation tests without PT orders. Will cancel PT evaluation.
--- NOTE | 2025-03-23 08:51 | PC.SS ---
Addendum entered by TASNEEM Ruiz 03/23/25 09:05: SS update: requested home health orders with resident Dr. Oropeza. Family prefers [facility] home health as patient was previously aligned with them. At time of discharge, the patient's family has requested ambulance transport home. Addendum entered by TASNEEM Ruiz 03/23/25 08:59: SS follow up: Per resident Dr. Oropeza the patient is to have peritoneal dialysis session 03/24 and begin outpatient hemodialysis 03/[address] Leo. Patient is identified as a possible d/c for today home. Original Note: SS follow up: notified ARNAV Russell, that an 02 test would be needed to order home 02 for the patient before d/c.
[2025-03-23] MEDS: DILTIAZEM CD 120 MG CAPCR 360 MG PO (09:14)
[2025-03-23] MEDS: POLYETHYLENE GLYCOL 17 GM PACKET PO (09:14)
--- NOTE | 2025-03-23 09:32 | PC.NURSE ---
DOCTOR AT BEDSIDE WAS MADE AWARE PT O2 DESAT TO 86% AT ROOM AIR WITH MINIMAL EXERCISE IN BED. NO NEW ORDERS
--- NOTE | 2025-03-23 09:35 | PC.NURSE ---
OXYGEN SATURATION WITH MINIMAL ACTIVITY AT REST 86%, OXYGEN SATURATION INCREASE TO 3L NC FIO2 95%.
--- NOTE | 2025-03-23 10:05 | PC.SS ---
Addendum entered by TASNEEM Ruiz 03/23/25 15:08: [facility]. Addendum entered by TASNEEM Ruiz 03/23/25 14:31: [facility] transport arranged. Reference number: [id number]. ETA with [facility] provided is 1600. ARNAV Russell and patient's daughter Ame were updated. Ame informed she and her spouse will be available at home to receive the patient. Addendum entered by TASNEEM Ruiz 03/23/25 13:53: [facility] test for the patient as it is not correct. ARNAV Russell is aware for updated test/note. Addendum entered by TASNEEM Ruiz 03/23/25 13:35: Ludy from [facility] ANDREA informed she is working on the 02 order for delivery for today. Addendum entered by TASNEEM Ruiz 03/23/25 12:29: DME referral was sent via [employer]. pending response for delivery time. Original Note: OXYGEN Pt is discharged in a chronic stable state and has been treated optimally and has other respiratory needs. Oxygen has been ordered due to acute hypoxic respiratory failure.
--- NOTE | 2025-03-23 12:03 | ESPR_ITS ---
Documentation for date of: 03/23/25 Subjective Subjective Interval history: Patient seen and examined at bedside. Patient shortness of breath has been improving, no use of accessory muscles, and primary team did consult pulmonary. Now on 1L NC. Pulmonary consultation was done with Dr. 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 On high-dose steroids along with nebulizations. Also reviewed her xray and feel there is fluid overload also and recommended to change to HD as PD does not work well after few years. 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 GPA was in remission for many years after initial diagnosis in [place] treated with prednisone and methotrexate 25 years ago , renal disease manifested later [facility] biopsy was inconclusive and repeat biopsy at [facility] [place] showed findings consistent with GPA, started on rituximab and steroid used but progressed to ESRD over time around 2019 Recommended hemodialysis previously by me also during last admission but daughter, sons who are the caregivers were not ready for it. Other vitals are stable, creatinine at 6.7, and cracles appreciated throughout the lung mason. Will continue to monitor closely and fluid management as per nephrology as patient on dialysis. Abnormal thyroid function tests and primary team ordered further lab tests; ultrasound of the thyroid revealed bilateral vascular solid thyroid nodules, primary team may consider ultrasound-guided fine-needle aspiration of both nodules. On 03/13/2025 Dr. Olivares had about 30 minutes discussion with the patient's daughter regarding starting the patient on HD, at least for couple of months, and she reported she would decide about it with further discussion with other family members and decide about HD. Finally, on 03/15/2025, patient's family agreed for hemodialysis. After successful placement of IR hemodialysis catheter, she is undergoing hemodialysis session this afternoon. 03/20/2025: Patient is currently on intermittent high flow nasal cannula and BiPAP, labs revealing mild worsening in white count to 20.6. The patient's cANCA titre is 1:20 and antiproteinase 3 is 16.[address] Arellano recommended bronchoscopy to rule out any kind of alveolar hemorrhage. The patient was started on CRRT by nephrology. However, patient family members were concerned regarding Antonia's granulomatosis flareup, and wished to proceed with flare up treatment with rituximab and high-dose steroid, as previously the patient had received this treatment during flareup and had improved. Finally, the family members decided to transfer the patient to tertiary referral center for higher level of care. We will continue with diltiazem CD to 360 mg daily due to concern regarding tachycardia. 03/21/2025: The patient is pending transfer to tertiary care center for further management of flare of of Antonia's granulomatosis, and respiratory distress. However, the patient's respiratory distress has significantly been improving since yesterday evening. Currently the patient is saturating 95% on 1 L NC. No use of accessory muscle seen. ICU team was discussing about placing the patient on pulse steroid therapy, but they did not. She is being continued on CRRT. We will continue with diltiazem CD 360 mg daily for tachycardia. Recommended to keep the magnesium and potassium greater than 2 and 4 respectively at all the time. 03/23/2025: The patient was being considered for transfer to higher center for further management of flare up of Antonia's granulomatosis, and respiratory distress. As the patient respiratory distress has significantly improved, and since saturating 95% on 1 L NC, family members are considering outpatient follow-up with computer technology trainer instead of transfer. The patient is supposed to undergo hemodialysis again today. We will continue with diltiazem CD360 mg daily for tachycardia. Recommended to keep the magnesium and potassium greater than 2 and 4 except clearly at all the time. After the patient's Antonia's granulomatosis flareup is resolved, and patient is hemodynamically stable, we will start the workup for possible TAVR as an outpatient at that point. Exam Vital Signs Temp Pulse Resp BP Pulse Ox O2 Del Method O2 Flow Rate 97.0 F 92 28 H 137/65 H 100 Nasal Cannula 1 03/23/25 08:00 03/23/25 10:22 03/23/25 10:22 03/23/25 09:14 03/23/25 10:22 03/23/25 08:00 03/23/25 10:22 FiO2 25 03/22/25 12:00 Narrative Exam General: Alert and oriented x3. In no acute distress. Eyes: Pupils are equal and reactive to light bilaterally. HEENT: Atraumatic, normocephalic. No JVD noted. Mucosa moist. Cardiovascular: Normal S1 and soft S2,. Tachycardic, 3/6 ejection systolic murmur heard at aortic area, 3/6 holosystolic murmur heard on the mitral area and parasternal area, trace peripheral pitting edema noted. Respiratory: Currently saturating 95% on 1 L NC, no accessory respiratory muscle use appreciated, bilateral air entry present, severe expiratory wheezing noted. Crackles improved Abdomen: Soft, nontender, nondistended. Skin: No rash. Warm to touch. Musculoskeletal: No gross injuries. Able to move all 4 extremities. Neuro: Alert and oriented x3. No focal neuro deficits. Psych: Fairly good mood. Objective Labs 03/23/25 05:49 03/23/25 05:49 Labs: Laboratory Results - last 24 hr 03/23/25 05:49 WBC 24.0 H RBC 2.47 L Hgb 7.4 L Hct 22.4 L MCV 91 MCH 30.0 MCHC 33.0 RDW Std Deviation 49.9 H Plt Count 123 L D Neut % (Auto) 94 H Lymph % (Auto) 1 L Gentry % (Auto) 2 Eos % (Auto) 0 Baso % (Auto) 0 Neut # (Auto) 22.5 H Lymph # (Auto) 0.3 L [place]entry # (Auto) 0.6 Eos # (Auto) 0.0 Baso # (Auto) 0.0 Immature Gran # (Auto) 0.57 H Absolute Nucleated RBC 0.77 H Immature Gran % 2 H Nucleated RBC % 3 H Sodium 135 L Potassium 4.2 Chloride 98 Carbon Dioxide 27.5 Anion Gap 10 BUN 35 H Creatinine 2.3 H Estim Creat Clear Calc 13.3 L eGFR 21 L BUN/Creatinine Ratio 15 Glucose 140 H Calculated Osmolality 280 Calcium 8.4 Corrected Calcium 8.9 Phosphorus 4.2 Magnesium 2.4 Total Bilirubin 0.4 AST 28 ALT 85 H Alkaline Phosphatase 47 Total Protein 5.2 L Albumin 3.4 Globulin 1.8 L Albumin/Globulin Ratio 1.9 ABG Interpretation ABG results: 03/09/25 03/09/25 03/10/25 07:50 18:22 09:05 ABG pH 7.45 ABG pCO2 39 ABG pO2 289 H ABG HCO3 27 H ABG O2 Saturation 101 H ABG Base Excess 2 VBG pH 7.39 7.49 VBG pCO2 49 37 D VBG pO2 70 H 68 H VBG Base Excess 4 H 5 H 07/0603/12/25 03/16/25 10:09 09:44 03:09 ABG pH 7.40 7.41 ABG pCO2 44 46 ABG pO2 80 L D 97 ABG HCO3 27 H 29 H ABG O2 Saturation 95 98 ABG Base Excess 2 4 H VBG pH 7.45 VBG pCO2 40 VBG pO2 39 D VBG Base Excess 4 H 03/18/25 03/19/25 03/20/25 14:17 08:33 07:12 ABG pH 7.36 7.31 L ABG pCO2 43 38 ABG pO2 66 L 80 L ABG HCO3 24 19 L ABG O2 Saturation 91 95 ABG Base Excess -1 -7 L VBG pH 7.45 VBG pCO2 39 VBG pO2 59 H VBG Base Excess 3 Quality Measures Quality Measures none Advance care planning discussed with:: patient Assessment & Plan Assessment Current Active Medications: Generic Name Dose Route Start Last Admin Trade Name Freq PRN Reason Stop Dose Admin Acetaminophen 650 mg 03/09/25 14:41 03/16/25 22:38 Acetaminophen 325 Mg Tablet PO 04/08/25 14:40 650 mg Q6H PRN Administration Mild Pain(1-3) or Fever >100.3 Albuterol 5 mg 03/18/25 15:00 03/23/25 10:20 Albuterol Rt 2.5 Mg/0.5 Ml Nebu INH 04/17/25 14:59 5 mg Q4HRRT SABRINA Administration Atorvastatin Calcium 40 mg 03/09/25 21:00 03/22/25 21:22 Atorvastatin Calcium 20 Mg Tablet PO 04/08/25 20:59 40 mg HS SABRINA Administration Dextrose 25 ml 03/12/25 08:16 Dextrose 50%-Water Inj 50 Ml Syringe IV 04/11/25 08:15 Q15MIN PRN BG 50-70 responsive npo pt Dextrose 50 ml 03/12/25 08:16 Dextrose 50%-Water Inj 50 Ml Syringe IV 04/11/25 08:15 Q15MIN PRN BG <50 OR BG <70 & pt unresponsive Diltiazem HCl 360 mg 03/21/25 09:00 03/23/25 09:14 Diltiazem Cd 120 Mg Capcr PO 04/20/25 08:59 360 mg QDAY SABRINA Administration Glucagon 1 mg 03/12/25 08:16 Glucagon Inj 1 Mg Vial IM Q15MIN PRN BG <70, and no IV access Guaifenesin 200 mg 03/16/25 14:00 03/23/25 05:16 Guaifenesin Syrup 200 Mg/10 Ml Udc PO 04/15/25 13:59 200 mg TID SABRINA Administration Protocol Heparin Sodium (Porcine) 3,300 unit 03/15/25 15:49 03/22/25 15:44 Heparin Sod Inj 1000 Unit/Ml Vial 10 Ml INDWELLCAT 03/29/25 15:48 3,300 unit X1 PRN Administration DIALYSIS Insulin Human Lispro 0 unit 03/12/25 11:30 03/23/25 11:54 Insulin Lispro (Admelog) 1 Unit/0.01 Ml Unit SC 04/11/25 11:29 Not Given AC SABRINA Protocol Ipratropium [place] 0.5 mg 03/10/25 15:00 03/23/25 10:21 Ipratropium Rt 0.5 Mg/ 2.5 Ml Nebu INH 04/09/25 14:59 0.5 mg Q4HRRT SABRINA Administration Methimazole 5 mg 03/15/25 08:45 03/23/25 05:16 Methimazole 5 Mg Tablet PO 04/14/25 08:44 5 mg TID SABRINA Administration Methylprednisolone Sodium Succinate 40 mg 03/18/25 21:00 03/23/25 09:12 Methylprednisolone Sod Succ 40 Mg Vial IVP 03/25/25 20:59 40 mg BID SABRINA Administration Ondansetron HCl 4 mg 03/09/25 14:41 Ondansetron Inj 2 Mg/Ml Inj 2 Ml IVP 04/08/25 14:40 Q6H PRN NAUSEA OR VOMITING Protocol Pantoprazole Sodium 40 mg 03/22/25 09:00 03/23/25 09:13 Pantoprazole Inj 40 Mg Vial IVP 04/21/25 08:59 40 mg BID SABRINA Administration Breztri (Budesonide, 2 ea 03/13/25 12:00 03/23/25 06:11 Glycopyrrolate And INH 04/12/25 11:59 2 puff Formoterol) BID SABRINA Administration Polyethylene Glycol 17 gm 03/21/25 09:15 03/23/25 09:14 Polyethylene Glycol 17 Gm Packet PO 04/20/25 09:14 17 gm QDAY SABRINA Administration Sennosides 1 tab 03/21/25 17:15 03/23/25 09:14 Senna Tablet PO 04/20/25 17:14 1 tab QDAY SABRINA Administration Protocol Sevelamer Carbonate 800 mg 03/20/25 12:00 03/20/25 18:45 Sevelamer Carbonate 800 Mg Tablet PO 04/19/25 11:59 Not Given TIDWM SABRINA Sodium Chloride 3 ml 03/11/25 16:26 03/20/25 18:42 Sodium Chloride Rt Annika 0.9% 3 Ml Nebu INH 04/10/25 16:25 3 ml PRN PRN Administration SOLN Plan A 84-year-old female with a past medical history of severe aortic stenosis with a valve area of 0.5 cm?, moderate MR and TR, moderate PAH, preserved EF with diastolic dysfunction, end-stage renal disease on peritoneal dialysis for the last 4 to 5 years, Antonia's granulomatosis diagnosed 25 years ago, chronic severe asthma since her early 20s, history of multifocal atrial tachycardia, 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 1. Acute hypoxic respiratory failure mostly secondary to fluid overload 2/2 failing PD, and 2. Acute asthma exacerbation 3. Severe aortic stenosis with a valve area less than 0.5 cm? 4. End-stage renal disease on peritoneal dialysis for past 4 to 5 years mostly secondary to Antonia's granulomatosis 5. Abnormal thyroid function tests 6. Multifocal atrial tachycardia 7. Valvular heart disease with severe aortic stenosis, moderate MR and TR 8. Moderate pulmonary artery pretension with an RVSP of 55 mmHg 9. Chronic diastolic congestive heart failure 10. 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 Patient presented with acute hypoxic respiratory failure and and was diagnosed with asthma exacerbation. Patient started on high-dose steroids with Solu- Medrol 60 mg every every 8 hours decreased to every 12 hours, along with nebulizations and inhalers. Still continues to be on oxygen and now use of any accessory muscles appreciated. Combination of upper respiratory tract symptoms along with recent emotional stress. Also on IV antibiotics. Patient has been tachycardic On arrival and EKG reviewed. EKG shows irregularly irregular rhythm but most of the time is 100 to 130 bpm which is typical of multifocal atrial tachycardia. Has irregularly irregular rhythm with varying PP and [place] intervals. 3 distinct P wave morphologies are also seen in the lead II. Also patient has underlying lung disease which could contribute's significantly for the multifocal atrial tachycardia Continue rate control with diltiazem 240 mg once daily as no beta-pratik can be given because of the as above. Will uptitrate the diltiazem to 360 mg once daily and if rate is not well-controlled. No anticoagulation required. Patient is mildly elevated troponins at 0.34 and 0.145. Troponin elevation mostly secondary to NSTEMI type II in the setting of supply/demand mismatch. Patient denies any Chest pain or chest pressure at the present moment. EKG showed marked without any acute ST-T changes history of ischemia. Patient is scheduled to have left and right heart cardiac catheterization on Wednesday as outpatient but cannot be done because of her acute hypoxic respiratory failure at the present point of time. Continue Plavix for now and high intensity statin. No beta-pratik because of asthma. No heparin drip required. Patient does have severe as noted above with a valve area of less than 0.5 cm?. Patient also has moderate MR and TR with moderate PAH noted on the previous echocardiogram in November 2024. Workup started as outpatient for the severe and as noted previously was scheduled for the left heart cardiac catheterization and right heart cardiac catheterization which will need to be postponed for now given her acute hypoxic respiratory failure. Will continue further workup of the severe as outpatient. 03/17/2025: Patient seen and examined at bedside. Patient continues to be short of breath, using accessory muscles, and primary team did consult pulmonary. Now on 2L NC. Pulmonary consultation was done with Dr. 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 On high-dose steroids along with nebulizations. Also reviewed her xray and feel there is fluid overload also and recommended to change to HD as PD does not work well after few years. 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 GPA was in remission for many years after initial diagnosis in [place] treated with prednisone and methotrexate 25 years ago , renal disease manifested later [facility] biopsy was inconclusive and repeat biopsy at [facility] [place] showed findings consistent with GPA, started on rituximab and steroid used but progressed to ESRD over time around 2020 Recommended hemodialysis previously by me also during last admission but daughter, sons who are the caregivers were not ready for it. Other vitals are stable, creatinine at 6.7, and cracles appreciated throughout the lung mason. Will continue to monitor closely and fluid management as per nephrology as patient on dialysis. Abnormal thyroid function tests and primary team ordered further lab tests; ultrasound of the thyroid revealed bilateral vascular solid thyroid nodules, primary team may consider ultrasound-guided fine-needle aspiration of both nodules. On 03/13/2025 Dr. Olivares had about 30 minutes discussion with the patient's daughter regarding starting the patient on HD, at least for couple of months, and she reported she would decide about it with further discussion with other family members and decide about HD. Finally, on 03/15/2025, patient's family agreed for hemodialysis. After successful placement of IR hemodialysis catheter, she is undergoing hemodialysis session this afternoon. 03/20/2025: Patient is currently on intermittent high flow nasal cannula and BiPAP, labs revealing mild worsening in white count to 20.6. The patient's cANCA titre is 1:20 and antiproteinase 3 is 16.[address] Arellano recommended bronchoscopy to rule out any kind of alveolar hemorrhage. The patient was started on CRRT by nephrology. However, patient family members were concerned regarding Antonia's granulomatosis flareup, and wished to proceed with flare up treatment with rituximab and high-dose steroid, as previously the patient had received this treatment during flareup and had improved. Finally, the family members decided to transfer the patient to tertiary referral center for higher level of care. We will continue with diltiazem CD to 360 mg daily due to concern regarding tachycardia. 03/21/2025: The patient is pending transfer to tertiary care center for further management of flare of of Antonia's granulomatosis, and respiratory distress. However, the patient's respiratory distress has significantly been improving since yesterday evening. Currently the patient is saturating 95% on 1 L NC. No use of accessory muscle seen. ICU team was discussing about placing the patient on pulse steroid therapy, but they did not. She is being continued on CRRT. We will continue with diltiazem CD 360 mg daily for tachycardia. Recommended to keep the magnesium and potassium greater than 2 and 4 respectively at all the time. 03/23/2025: The patient was being considered for transfer to [facility] for further management of flare up of Antonia's granulomatosis, and respiratory distress. As the patient respiratory distress has significantly improved, and since saturating 95% on 1 L NC, family members are considering outpatient follow-up with computer technology trainer instead of transfer. The patient is supposed to undergo hemodialysis again today. We will continue with diltiazem CD360 mg daily for tachycardia. Recommended to keep the magnesium and potassium greater than 2 and 4 except clearly at all the time. After the patient's Antonia's granulomatosis flareup is resolved, and patient is hemodynamically stable, we will start the workup for possible TAVR as an outpatient at that point. Management of rest of the medical conditions as per primary team and other consultants. Thank you for the consult and allowing me to participate in the care of the patient. Cardiology will continue to follow. The patient's management plan was discussed with my attending physician MD Kevin Murcia MD, PGY3 Attending Provider Attestation/Addendum I have personally seen and examined the patient separately on the above date of service and discussed the plan of care with the resident. I reviewed the resident Dr. Kevin Sullivan consultation progress note and agree with the resident findings and plan in the note above and have also edited the documentation to reflect my findings and plan. Jori Olivares M.D. Interventional Cardiology
--- NOTE | 2025-03-23 13:38 | ESPR_ITS ---
Documentation for date of: 03/23/25 Subjective Subjective Interval history: Overnight events: No acute events overnight. Patient was seen and examined at bedside. AM vitals and labs reviewed. WBC 24.0, H&H 7.4/22.4, potassium 4.2, BUN 35, creatinine 2.3, GFR 21, corrected calcium 8.4, phosphorus 4.2. HD done yesterday for 2 hours 31 minutes, 1.5 L net fluid removed. The patient maintained a stable SBP [107?133], but had soft DBP [41?53] during yesterday's HD session. Patient and patient's family hoping to discharge today. Today the patient had an episode of O2 desatting to 86% after minimal exercise in bed. The patient's O2 was briefly raised to 3 L nasal cannula. During today's evaluation prior to discharge, the patient was breathing comfortably on 1 L nasal cannula. Patient still appears fatigued and has difficulty with verbal communication due to respiratory status. The patient still endorses pain upon breathing, but otherwise no other complaints. Review of systems otherwise negative except for what is mentioned above. Exam Vital Signs Temp Pulse Resp BP Pulse Ox O2 Del Method O2 Flow Rate 97.6 F 106 H 25 H 141/58 H 97 Nasal Cannula 1 03/23/25 12:00 03/23/25 12:00 03/23/25 12:00 03/23/25 12:00 03/23/25 12:00 03/23/25 12:00 03/23/25 12:00 FiO2 25 03/22/25 12:00 Narrative Exam Physical Exam: General: Alert, no acute distress. Skin: Warm, dry, intact, no obvious rash. RIJ dialysis catheter area red/brown discoloration. Head: Normocephalic, atraumatic. Eye: Normal conjunctiva, PERRL. Cardiovascular: Regular rate and rhythm, systolic murmur, +S1/S2. Respiratory: Short and shallow breaths on auscultation, respirations unlabored. Wheezing in right upper and left upper lobes. Extremities: 1+ edema, no cyanosis, no clubbing. 2+ radial pulse bilaterally, 2+ pedal pulse bilaterally. Objective Labs 03/23/25 05:49 03/23/25 05:49 Labs: Laboratory Results - last 24 hr 03/23/25 05:49 WBC 24.0 H RBC 2.47 L Hgb 7.4 L Hct 22.4 L MCV 91 MCH 30.0 MCHC 33.0 RDW Std Deviation 49.9 H Plt Count 123 L D Neut % (Auto) 94 H Lymph % (Auto) 1 L [place] % (Auto) 2 Eos % (Auto) 0 Baso % (Auto) 0 Neut # (Auto) 22.5 H Lymph # (Auto) 0.3 L [place] # (Auto) 0.6 Eos # (Auto) 0.0 Baso # (Auto) 0.0 Immature Gran # (Auto) 0.57 H Absolute Nucleated RBC 0.77 H Immature Gran % 2 H Nucleated RBC % 3 H Sodium 135 L Potassium 4.2 Chloride 98 Carbon Dioxide 27.5 Anion Gap 10 BUN 35 H Creatinine 2.3 H Estim Creat Clear Calc 13.3 L eGFR 21 L BUN/Creatinine Ratio 15 Glucose 140 H Calculated Osmolality 280 Calcium 8.4 Corrected Calcium 8.9 Phosphorus 4.2 Magnesium 2.4 Total Bilirubin 0.4 AST 28 ALT 85 H Alkaline Phosphatase 47 Total Protein 5.2 L Albumin 3.4 Globulin 1.8 L Albumin/Globulin Ratio 1.9 ABG Interpretation ABG results: 03/09/25 03/09/25 03/10/25 07:50 18:22 09:05 ABG pH 7.45 ABG pCO2 39 ABG pO2 289 H ABG HCO3 27 H ABG O2 Saturation 101 H ABG Base Excess 2 VBG pH 7.39 7.49 VBG pCO2 49 37 D VBG pO2 70 H 68 H VBG Base Excess 4 H 5 H 03/11/25 03/12/25 03/16/25 10:09 09:44 03:09 ABG pH 7.40 7.41 ABG pCO2 44 46 ABG pO2 80 L D 97 ABG HCO3 27 H 29 H ABG O2 Saturation 95 98 ABG Base Excess 2 4 H VBG pH 7.45 VBG pCO2 40 VBG pO2 39 D VBG Base Excess 4 H 03/18/25 03/19/25 03/20/25 14:17 08:33 07:12 ABG pH 7.36 7.31 L ABG pCO2 43 38 ABG pO2 66 L 80 L ABG HCO3 24 19 L ABG O2 Saturation 91 95 ABG Base Excess -1 -7 L VBG pH 7.45 VBG pCO2 39 VBG pO2 59 H VBG Base Excess 3 Quality Measures Quality Measures none Advance care planning discussed with:: patient Assessment & Plan Assessment Current Active Medications: Generic Name Dose Route Start Last Admin Trade Name Freq PRN Reason Stop Dose Admin Acetaminophen 650 mg 03/09/25 14:41 03/16/25 22:38 Acetaminophen 325 Mg Tablet PO 04/08/25 14:40 650 mg Q6H PRN Administration Mild Pain(1-3) or Fever >100.3 Albuterol 5 mg 03/18/25 15:00 03/23/25 10:20 Albuterol Rt 2.5 Mg/0.5 Ml Nebu INH 04/17/25 14:59 5 mg Q4HRRT SABRINA Administration Atorvastatin Calcium 40 mg 03/09/25 21:00 03/22/25 21:22 Atorvastatin Calcium 20 Mg Tablet PO 04/08/25 20:59 40 mg HS SABRINA Administration Dextrose 25 ml 03/12/25 08:16 Dextrose 50%-Water Inj 50 Ml Syringe IV 04/11/25 08:15 Q15MIN PRN BG 50-70 responsive npo pt Dextrose 50 ml 03/12/25 08:16 Dextrose 50%-Water Inj 50 Ml Syringe IV 04/11/25 08:15 Q15MIN PRN BG <50 OR BG <70 & pt unresponsive Diltiazem HCl 360 mg 03/21/25 09:00 03/23/25 09:14 Diltiazem Cd 120 Mg Capcr PO 04/20/25 08:59 360 mg QDAY SABRINA Administration Glucagon 1 mg 03/12/25 08:16 Glucagon Inj 1 Mg Vial IM Q15MIN PRN BG <70, and no IV access Guaifenesin 200 mg 03/16/25 14:00 03/23/25 05:16 Guaifenesin Syrup 200 Mg/10 Ml Udc PO 04/15/25 13:59 200 mg TID SABRINA Administration Protocol Heparin Sodium (Porcine) 3,300 unit 03/15/25 15:49 03/22/25 15:44 Heparin Sod Inj 1000 Unit/Ml Vial 10 Ml INDWELLCAT 03/29/25 15:48 3,300 unit X1 PRN Administration DIALYSIS Insulin Human Lispro 0 unit 03/12/25 11:30 03/23/25 11:54 Insulin Lispro (Admelog) 1 Unit/0.01 Ml Unit SC 04/11/25 11:29 Not Given AC SABRINA Protocol Ipratropium Voca 0.5 mg 03/10/25 15:00 03/23/25 10:21 Ipratropium Rt 0.5 Mg/ 2.5 Ml Nebu INH 04/09/25 14:59 0.5 mg Q4HRRT SABRINA Administration Methimazole 5 mg 03/15/25 08:45 03/23/25 05:16 Methimazole 5 Mg Tablet PO 04/14/25 08:44 5 mg TID SABRINA Administration Methylprednisolone Sodium Succinate 40 mg 03/18/25 21:00 03/23/25 09:12 Methylprednisolone Sod Succ 40 Mg Vial IVP 03/25/25 20:59 40 mg BID SABRINA Administration Ondansetron HCl 4 mg 03/09/25 14:41 Ondansetron Inj 2 Mg/Ml Inj 2 Ml IVP 04/08/25 14:40 Q6H PRN NAUSEA OR VOMITING Protocol Pantoprazole Sodium 40 mg 03/22/25 09:00 03/23/25 09:13 Pantoprazole Inj 40 Mg Vial IVP 04/21/25 08:59 40 mg BID SABRINA Administration Breztri (Budesonide, 2 ea 03/13/25 12:00 03/23/25 06:11 Glycopyrrolate And INH 04/12/25 11:59 2 puff Formoterol) BID SABRINA Administration Polyethylene Glycol 17 gm 03/21/25 09:15 03/23/25 09:14 Polyethylene Glycol 17 Gm Packet PO 04/20/25 09:14 17 gm QDAY SABRINA Administration Sennosides 1 tab 03/21/25 17:15 03/23/25 09:14 Senna Tablet PO 04/20/25 17:14 1 tab QDAY SABRINA Administration Protocol Sevelamer Carbonate 800 mg 03/20/25 12:00 03/20/25 18:45 Sevelamer Carbonate 800 Mg Tablet PO 04/19/25 11:59 Not Given TIDWM SABRINA Sodium Chloride 3 ml 03/11/25 16:26 03/20/25 18:42 Sodium Chloride Rt Annika 0.9% 3 Ml Nebu INH 04/10/25 16:25 3 ml PRN PRN Administration SOLN Plan Mrs. 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 Nephrology was consulted for management of her peritoneal dialysis. Due to concerns of PNA and inadequate HD, patient transferred to ICU on 03/19 for additional respiratory support/monitoring and CRRT. Downgraded to telemetry on 03/21. #ESRD on Peritoneal Dialysis #ESRD 2/2 Donna's Granulomatosis #Fluid overload status #Anemia #Hyperkalemia, hyperphosphatemia (resolved) - Discontinued nightly peritoneal dialysis 03/15. - Peritoneal dialysis was not sufficient in removing adequate volume. - Plan for one PD session on Wednesday with family hoping for discharge beforehand. - Permanent dialysis catheter placed 03/15. - Hemodialysis performed 03/15, 03/16, 03/17, and 03/22 - Patient to pursue HD outpatient at Dr. [facility] HD center after discharge. - CRRT started on 03/19 for continued respiratory concerns even with HD. - CRRT performed 03/19 for 12hrs and 03/20 for 11hrs 39min. - CRRT stopped 03/21 due to renal function lab values returning to WNL and downgrade to telemetry unit. - Continue Sevelamer powder 800mg TID. - Continue to monitor renal function. - Avoid IV hydration given past history of fluid overload and CHF. - Avoid nephrotoxic drugs and renally adjust medications. - Patient to follow up with outpatient thoracic surgeon Dr. Leo for dialysis once discharged. Patient was discussed with the Nephrology attending, Dr. mAezcua. Thank you for allowing us to participate in the care of this patient. Rogelio Asher, PGY-1 Attending Provider Attestation/Addendum Pt is seen and examined. Labs and other investigations reviewed. Agree with assessment and plan and finding by resident. Temo Amezcua MD
--- NOTE | 2025-03-23 13:57 | PC.NURSE ---
PATIENT SATURATION AT 86% ROOM AIR REST.
--- NOTE | 2025-03-23 15:08 | PC.NURSE ---
ETA TIME FOR AMBULANCE 1600
--- NOTE | 2025-03-23 17:32 | PC.CC ---
Addendum entered by Micheline Epstein RN 03/23/25 18:47: [facility] accepted the pt. Booked [facility]. Resume of care date is Wednesday03/25/25. Original Note: pt is open with [facility]. HH referral sent on [facility]. Awaiting responses. Pending start of care date.
--- NOTE | 2025-03-24 07:51 | PC.CC ---
Addendum entered by Siddhartha Harmon RN 03/24/25 08:41: Patient is open to [facility], start of care 03/25/25. Original Note: Home health referral sent through [facility], pending responses at this time.
[2025-03-29 06:25] LABS: Haptoglobin* 246 mg/dL (43-212)
[2025-03-29 06:26] LABS: FVIII Activity 77 % normal (50-180); Thromboplastin Time 46 sec (23-32); vWF Antigen >300 % (50-217); vWf Ristocetin Co-Factor 295 % normal (42-200)
== END 2025-03-23 16:20 | disposition home health service (06) | DRG 280 ==
LOC: SERX 13:54 → SERHOLD 15:28 → S2NX 03-11 18:50 → S2SX 03-19 13:26 → S2NX 03-21 16:55
PROVIDERS: Internal Medicine; Internal Medicine Critical Care Medicine; Student in an Organized Health Care Education/Training Program; Admitting Provider Internal Medicine; Emergency Provider Family Medicine; PCP Internal Medicine; Visit Provider Internal Medicine
DX: I13.2 Hypertensive heart and chronic kidney disease with heart failure and with stage 5 chronic kidney disease, or end stage renal disease (principal); I50.43 Acute on chronic combined systolic (congestive) and diastolic (congestive) heart failure; I21.A1 Myocardial infarction type 2; J18.9 Pneumonia, unspecified organism; J96.21 Acute and chronic respiratory failure with hypoxia; N18.6 End stage renal disease; S42.301A Unspecified fracture of shaft of humerus, right arm, initial encounter for closed fracture; F05 Delirium due to known physiological condition; I69.351 Hemiplegia and hemiparesis following cerebral infarction affecting right dominant side; J45.901 Unspecified asthma with (acute) exacerbation; K56.7 Ileus, unspecified; I47.19 Other supraventricular tachycardia; M30.0 Polyarteritis nodosa; M31.30 Wegener's granulomatosis without renal involvement; I50.42 Chronic combined systolic (congestive) and diastolic (congestive) heart failure; I48.91 Unspecified atrial fibrillation; E78.5 Hyperlipidemia, unspecified; M19.90 Unspecified osteoarthritis, unspecified site; M81.0 Age-related osteoporosis without current pathological fracture; K21.9 Gastro-esophageal reflux disease without esophagitis; I35.0 Nonrheumatic aortic (valve) stenosis; I34.0 Nonrheumatic mitral (valve) insufficiency; D64.9 Anemia, unspecified; Z99.2 Dependence on renal dialysis; D63.1 Anemia in chronic kidney disease; E05.20 Thyrotoxicosis with toxic multinodular goiter without thyrotoxic crisis or storm; E83.39 Other disorders of phosphorus metabolism; E83.42 Hypomagnesemia; E87.5 Hyperkalemia; F41.9 Anxiety disorder, unspecified; I25.10 Atherosclerotic heart disease of native coronary artery without angina pectoris; I25.2 Old myocardial infarction; I27.21 Secondary pulmonary arterial hypertension; K29.70 Gastritis, unspecified, without bleeding; K76.0 Fatty (change of) liver, not elsewhere classified; R04.0 Epistaxis; R54 Age-related physical debility; Z79.02 Long term (current) use of antithrombotics/antiplatelets; Z79.899 Other long term (current) drug therapy; T38.0X5A Adverse effect of glucocorticoids and synthetic analogues, initial encounter; Z87.441 Personal history of nephrotic syndrome
CPT/HCPCS: 36415; 36600; 71045; 71250; 74018; 76536; 76705; 76937; 77001; 80048; 80053; 80061; 80069; 80202; 81001; 82042; 82150; 82270; 82728; 82785; 82803; 82945; 83010; 83036; 83540; 83550; 83605; 83615; 83735; 83880; 84100; 84132; 84145; 84157; 84439; 84443; 84445; 84484; 85025; 85046; 85240; 85245; 85246; 85247; 85379; 85610; 85652; 85730; 86021; 86036; 86037; 86140; 86331; 86376; 86580; 86635; 86703; 87040; 87081; 87205; 87340; 87400; 87502; 87634; 87811; 89051; 89220; 92526; 92610; 93005; 93306; 94640; 94644; 94660; 94664; 94667; 96365; 96366; 96374; 96375; 99285; A9270; C1750; C1894; J0456; J0612; J0692; J0696; J1200; J1642; J1643; J1644; J1815; J2470; J2919; J3010; J3370; J3373; J3475; J3490; J7050; J7999; P9047; Q5105

== ENCOUNTER 2025-03-24 11:58 | Emergency (ER) | payer MEDICARE, MEDICAID, SELFPAY ==
[2025-03-24] VITALS (41 sets, daily range): BP systolic 80–149; BP diastolic 41–74; PULSE 60–77; RESP 10–27; TEMP 33.6–36.9; O2SAT 93–100; BMI 24.2
--- NOTE | 2025-03-24 12:05 | EKG_ITS ---
[facility] Test Date: 2025-03-24 Pat Name: WHIT TITUS Department: Room: - Gender: Female Director Of Residential Services: : 1940 Requested By: Iglesia Jones Order Number: [id number] Reading MD: Iglesia Jones Measurements Intervals [place] Rate: 63 P: 64 MA: 173 QRS: -46 QRSD: 133 T: 5 QT: 442 QTc: 456 Interpretive Statements SINUS RHYTHM INTRAVENTRICULAR CONDUCTION DELAY [130+ ms QRS DURATION] VOLTAGE CRITERIA FOR LVH [MEETS CRITERIA IN ONE OF: R(aVL), S(V1), R(V5), R(V5/V6)+S(V1)] POSSIBLE ANTERIOR MYOCARDIAL INFARCTION , OF INDETERMINATE AGE [30 ms Q WAVE IN V3/V4, OR R < 0.2 mV IN V4] Compared to ECG 03/20/2025 04:21:44 Intraventricular conduction delay now present Myocardial infarct finding now present First degree AV block no longer present Right bundle-branch block no longer present Left anterior fascicular block no longer present /store/S0/[id number].pdf
[2025-03-24] MEDS: ALBUTEROL RT 2.5 MG/0.5 ML NEBU 10 MG INH (12:20)
[2025-03-24] MEDS: BUDESONIDE RT 0.5 MG/2 ML NEBU INH (12:20)
--- NOTE | 2025-03-24 12:21 | EKG_ITS ---
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: : 1940 Requested By: Iglesia Jones Order Number: [id number] Reading MD: Iglesia Jones Measurements Intervals [place] Rate: 60 P: 64 ME: 173 QRS: -47 QRSD: 133 T: 18 QT: 450 QTc: 453 Interpretive Statements SINUS RHYTHM RIGHT BUNDLE BRANCH BLOCK [120+ ms QRS DURATION, UPRIGHT V1, 40+ ms S IN I/aVL/V4/V5/V6] LEFT ANTERIOR FASCICULAR BLOCK [QRS AXIS <= -45, QR IN I, RS IN II] VOLTAGE CRITERIA FOR LVH [MEETS CRITERIA IN ONE OF: R(aVL), S(V1), R(V5), R(V5/V6)+S(V1)] POSSIBLE ANTERIOR MYOCARDIAL INFARCTION , OF INDETERMINATE AGE [30 ms Q WAVE IN V3/V4, OR R < 0.2 mV IN V4] Compared to ECG 03/24/2025 12:13:59 Right bundle-branch block now present Left anterior fascicular block now present Intraventricular conduction delay no longer present Myocardial infarct finding still present /store/S0/[id number]/ecg/[id number].pdf
--- NOTE | 2025-03-24 12:27 | PD.EDSOB ---
ED SOB =RME/HPI General Chief Complaint: Shortness of Breath/Dyspnea Stated Complaint: SOB Time Seen by Provider: 03/24/25 12:09 Arrival date/time: 03/24/25 11:58 Limitations: altered mental status (obtunded) RME / HPI RME / HPI Narrative: DR. 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 No history available from the patient due to obtundation. Per daughter, patient had been admitted for several days, went home, and worse today. Related Data Home Medications ?Medication ?Instructions ?Recorded ?Confirmed atorvastatin 40 mg tablet 40 mg PO QDAY 08/15/19 03/11/25 acetaminophen 325 mg tablet 650 mg PO Q6H PRN fever or pain 03/11/25 03/11/25 (Tactinal) Previous Rx's ?Medication ?Instructions ?Recorded clopidogrel 75 mg tablet (Plavix) 75 mg PO QDAY #30 tabs 09/24/15 megestrol 400 mg/10 mL (40 mg/mL) 40 mg PO QDAY #240 mL 12/13/24 oral suspension ondansetron 4 mg disintegrating 4 mg PO Q6H PRN nausea and 12/13/24 tablet vomiting #30 tabs albuterol sulfate 90 mcg/actuation 2 puff inhalation QID PRN sob 30 12/29/24 aerosol inhaler (Ventolin HFA) days #2 device budesonide 160 mcg-glycopyr 9 2 inh inhalation BID #10.7 grams 12/29/24 mcg-formot 4.8 mcg/actuation HFA inhaler (Breztri Aerosphere) pantoprazole 20 mg tablet,delayed 20 mg PO BID #60 tabs 12/29/24 release diltiazem HCl 360 mg 360 mg PO QDAY 1 month #30 caps 03/23/25 capsule,extended release 24 hr lactulose 10 gram/15 mL oral 10 g (15 mL) PO QDAY PRN 03/23/25 solution (Constulose) constipation #1,200 mL methimazole 5 mg tablet 5 mg PO TID 1 month #90 tabs 03/23/25 prednisolone 5 mg (21 tabs) 5 mg PO QDAY 21 days #21 tabs 03/23/25 tablets in a dose pack Allergies Allergy/AdvReac Type Severity Reaction Status Date / Time shrimp Allergy Severe Wheezing Verified 01/01/25 10:01 NSAIDS (Non-Steroidal Allergy Intermediate Swelling Verified 01/01/25 10:01 Anti-Inflamma Penicillins Allergy Intermediate Rash Verified 01/01/25 10:01 Review of Systems Review of Systems Systems Reviewed: All systems reviewed, normal except as documented Past Medical History Past Medical History NEUROLOGIC: Positive Neurological Disorders and Cerebrovascular Accident CARDIAC: Positive Cardiac Disorders, Atrial Fibrillation, Hypercholesterolemia, Edema and Hypertension RESPIRATORY: Positive Asthma, Cough and Wheezing GASTROINTESTINAL: Positive Gastrointestinal Disorders and Gastroesophageal Reflux Disease GENITOURINARY: Positive Genitourinary Disorders, Renal Disease and Dialysis REPRODUCTIVE: Positive Previous Pregnancies MUSCULOSKELETAL: Positive Musculoskeletal Disorders and Osteoporosis ENT: Positive Cataracts HEMATOLOGIC: Positive Anemia OTHER HISTORY: Positive Hospitalization, Shingles and Chicken Pox Family History FAMILY HISTORY: Positive Family Respiratory Disorders, Family Cardiac Disorders, Family Cancer and Family Surgery Social History SMOKING STATUS: Never smoker SUBSTANCE USE: does not use ALCOHOL: Never ED Exam General Limitations: Present altered mental status (obtunded) General appearance: Present in distress (increased respirations at 34) and other (obtunded, eyes rolled up, but no seizure activity; had a high flow face mask) Head Head exam: Present atraumatic, normocephalic and normal inspection Eye Eye exam: Present normal appearance, PERRL and EOMI ENT ENT exam: Present normal exam, normal oropharynx and mucous membranes moist Neck Neck exam: Present normal inspection (no masses), full ROM and trachea midline Chest Chest inspection: Present normal inspection and symmetric chest wall rise Respiratory Respiratory exam: Present respiratory distress (decreased breath sounds) Cardiovascular Cardiovascular exam: Present regular rate, normal rhythm and normal heart sounds Abdominal Exam Abdominal exam: Present soft and normal bowel sounds Extremities Exam Extremities exam: Present normal inspection and full ROM; Absent pedal edema Back Exam Back exam: Present normal inspection and full ROM Neurological Exam Neurological exam: Present other (Not cooperative for full neuro exam; obtunded) Skin Skin exam: Present warm, dry, intact and normal color Course Quality Measures Current suspected stage: sepsis Possible source: pulmonary Blood cultures ordered: yes Antibiotic ordered: Yes Pertinent labs: 03/24/25 12:10 Lactic Acid 0.7 mMol/L (0.4-2.0) Procalcitonin 0.30 ng/ml (0.0-0.49) 1510: Sepsis alert initiated. Orders made at this time are congruent with ED Adult Sepsis Order List. Re-evaluation is to be completed. 1600: Sepsis reassessment performed consisting of lab review, vitals, physical exam including auscultation of heart, lungs, and visual evaluation of capillary refills, mucosal membranes and extremities. sepsis Orders Category Date Time Status 24 HR Medical Restraints Q2HR Care 03/24/25 13:58 Active EKG (ED ONLY) *Do not use* NOW Care 03/24/25 12:05 Completed EKG (ED ONLY) *Do not use* NOW Care 03/24/25 12:21 Completed Emergency Titration Protocol Stat Care 03/24/25 15:07 Ordered Valdovinos [Urinary Catheter] X1 Care 03/24/25 13:42 Active Hemodialysis Urgent Care 03/24/25 14:24 Active Initiate Warming Therapy NOW Care 03/24/25 14:49 Active Insert IV NOW Care 03/24/25 12:07 Active Insert NG / OG tube NOW Care 03/24/25 13:42 Active Insert [Insert IV] NOW Care 03/24/25 12:21 Completed Intubation NOW Care 03/24/25 13:30 Completed Transfer to another facility [Transfer/Discharge] Stat Discharge 03/24/25 14:30 Active CXRP [XR chest 1V portable] Stat Exams 03/24/25 12:42 Completed EKG (ED Only) Stat Exams 03/24/25 12:05 Draft EKG (ED Only) Stat Exams 03/24/25 12:21 Draft XR chest 1V post procedure Stat Exams 03/24/25 13:41 Completed ABG [Arterial Blood Gas] Stat Lab 03/24/25 12:20 Completed ABG [Arterial Blood Gas] Stat Lab 03/24/25 13:17 Completed ABG [Arterial Blood Gas] Stat Lab 03/24/25 14:45 Ordered ABG [Arterial Blood Gas] Stat Lab 03/24/25 15:12 Completed B-Type Natriuretic Peptide Stat Lab 03/24/25 12:10 Completed Blood Culture (Lab) Stat Lab 03/24/25 13:02 Received Blood Culture (Lab) Stat Lab 03/24/25 15:32 Received CBC Stat Lab 03/24/25 12:10 Completed Comprehensive Metabolic Panel Stat Lab 03/24/25 12:10 Completed Lactic Acid [Lactate (Lactic Acid)] Stat Lab 03/24/25 12:10 Completed Magnesium Stat Lab 03/24/25 12:10 Completed Partial Thromboplastin Time Stat Lab 03/24/25 12:10 Completed Procalcitonin Stat Lab 03/24/25 12:10 Completed Prothrombin Time with INR Stat Lab 03/24/25 12:10 Completed Sputum Culture and Gram Stain Stat Lab 03/24/25 13:40 Received Troponin I Stat Lab 03/24/25 12:10 Completed Urinalysis Stat Lab 03/24/25 12:21 Ordered ALBUTEROL RT 0.5ml [Proventil Rt 0.5ml] Med 03/24/25 12:11 Discontinued 10 mg INH X1 ONE ALBUTEROL RT 0.5ml [Proventil Rt 0.5ml] Med 03/24/25 13:48 Discontinued 5 mg INH X1 ONE Albumin Human 25% Ivpb [Albuminar-25 Ivpb] Med 03/24/25 14:24 Active 25 gm in 100 ml IV PRN Budesonide Rt [Pulmicort Rt Annika] Med 03/24/25 12:10 Discontinued 0.5 mg INH X1 ONE Clindamycin/Ns 600 mg Ivpb [Cleocin/Ns Ivpb] Med 03/24/25 13:49 Active 600 mg in 50 ml IV Q8HR Doxycycline Inj [Vibramycin Inj] 100 mg Med 03/24/25 14:00 Active Sodium Chloride 0.9% (Pop) [NS 0.9% mini bag] 100 ml IV BID Etomidate Inj [Amidate Inj] Med 03/24/25 13:25 Discontinued 10 mg IVP X1 ONE Magnesium Sulfate 2 GM Ivpb [Magnesium Sulfate Ivpb] Med 03/24/25 12:32 Discontinued 2 gm in 50 ml IV X1 MethylPREDNISolone. [SoluMEDROL Inj] Med 03/24/25 13:51 Discontinued 60 mg IVP X1 ONE MethylPREDNISolone.* [SoluMEDROL Inj] Med 03/24/25 12:21 Discontinued 125 mg IVP X1 ONE Rocuronium Inj [Zemuron Inj] Med 03/24/25 13:25 Discontinued 50 mg IV X1 ONE Sodium Chloride 0.9% 500 ml [Ns] 500 ml Med 03/24/25 12:21 Active IV 50 mls/hr Sodium Chloride Rt Annika 0.9% [NS Rt Annika 0.9%] Med 03/24/25 12:10 Active 3 ml INH PRN PRN Sodium Chloride Rt Annika 10% [NS Rt Annika 10%] Med 03/24/25 13:51 Discontinued 5 ml INH X1 ONE Vancomycin/Ns 750 mg Ivpb Med 03/24/25 14:52 Discontinued 750 mg in 150 ml IV X1 fentaNYL 2,500 MCG/250 ML BAG [Sublimaze Inj 2,500 MCG/ Med 03/24/25 13:27 Active 250 ML BAG] 2,500 mcg in 250 ml IV 25 mcg/hr Sputum Induction PRN RT 03/24/25 14:00 Ordered Ventilator [Volume Ventilator] Stat RT 03/24/25 Active Vital Signs Vital signs: Vital Signs Temperature 98.4 F 03/24/25 12:05 Pulse Rate 63 03/24/25 12:05 Respiratory Rate 19 03/24/25 12:05 Blood Pressure 149/49 H 03/24/25 12:05 Pulse Oximetry (%) 93 L 03/24/25 12:05 Oxygen Delivery Method Oxy Mask 03/24/25 12:05 PROCEDURES: Intubation Time out performed: Yes sedative: Etomidate Mg Given: 10 paralytic: Rocuronium Mg Given: 50 Laryngoscope: fiber optic video scope Assist Device Used: fiber optic device ET Tube Size: 7 ET Tube Uncuffed: No Tube Secured Depth (cm): 23 Tube Secured Location: lips Tube Placement Confirmation: visualized tube passing through cords, equal breath sounds bilaterally, no breath sounds over epigastrium and confirmation by capnometry Patient Tolerated Procedure: well and no complications Intubation Complications: none Shortness of Breath / Dyspnea MDM Narrative MDM Narrative:: Leonora Rasmussen am scribing for and in the presence of Dr. Hollins. 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 How is presenting disease/condition affected by chronic disease/condition?: exacerbated by Evaluation data The following diagnostics were reviewed and interpreted by me:: lab results and EKG tracing(s) Lab and/or radiology exams considered but not ordered:: none Interpretation Summary: My interpretation: EKG performed at 1213 hours, sinus rhythm, rate 63, no acute changes, no STEMI Procedure(s): XR chest 1V post procedure Accession Number(s): [id number] cc: Iglesia Hollins MD; Henok Mary MD; Ronald Woodruff MD~ Examination: AP chest single view Technique one AP portable supine chest single view Date and time: March 24, 2025 1355 hrs. Comparison March 24, 2025 1318 hrs. Indications: Hypoxic respiratory failure postintubation. Findings: Prominent CHF. Moderate enlargement cardiac contour with prominent vascular congestion and perihilar edema Right internal jugular dialysis catheter satisfactory position Tracheal tube tip 3 cm above serenity Orogastric tube is in the stomach Impression: Prominent CHF Endotracheal tube tip 3 cm above serenity Dictated By: Henok Mary MD Procedure(s): XR chest 1V portable Accession Number(s): [id number] cc: Iglesia Hollins MD; Henok Mary MD; Ronald Woodruff MD~ Examination: AP chest single view Technique one AP portable supine chest single view Date and time: March 24, 2025, 1318 hrs. Comparison March 21, 2025 Indications: Shortness of breath beginning 2 days ago. Findings: Interval prominent CHF Moderate enlargement cardiac contour with prominent vascular congestion and perihilar edema. Consider superimposed pneumonia right lung. Right internal jugular dialysis catheter tip SVC satisfactory position Impression: Interval prominent CHF Consider superimposed pneumonia right lung Dictated By: Henok Mary MD Medications / Prescriptions Medications or Prescriptions considered but not ordered:: none Medication administrations:: Medication Administration History Sodium Chloride (Ns) 500 mls @ 50 mls/hr IV .Q10H ONE Stop: 03/24/25 22:20 Last Admin: 03/24/25 12:35 Dose: 50 mls/hr Documented By: ENE Fentanyl Citrate (Sublimaze Inj 2,500 Mcg/250 Ml Bag) 2,500 mcg in 250 mls @ 2.5 mls/hr IV .Q24H PRN; Protocol PRN Reason: PER PROTOCOL Stop: 03/29/25 13:26 Last Titration: 03/24/25 15:30 Dose: 275 mcg/hr, 27.5 mls/hr Documented By: Titration: 03/24/25 15:00 Dose: 225 mcg/hr, 22.5 mls/hr Documented By: Titration: 03/24/25 14:37 Dose: 75 mcg/hr, 7.5 mls/hr Documented By: Admin: 03/24/25 14:03 Dose: 25 mcg/hr, 2.5 mls/hr Documented By: ENE Co-signed By: EF Clindamycin/Sodium Chloride (Cleocin/Ns Ivpb) 600 mg in 50 mls @ 100 mls/hr IV Q8HR SABRINA Stop: 03/31/25 13:48 Last Infusion: 03/24/25 14:46 Dose: Infused Documented By: Admin: 03/24/25 14:14 Dose: 100 mls/hr Documented By: ENE Doxycycline Hyclate 100 mg/ (Sodium Chloride) 100 mls @ 100 mls/hr IV BID SABRINA Stop: 03/31/25 13:59 Last Infusion: 03/24/25 16:03 Dose: Infused Documented By: Admin: 03/24/25 14:47 Dose: 100 mls/hr Documented By: ENE Albumin Human (Albuminar-25 Ivpb) 25 gm in 100 mls @ 100 mls/hr IV PRN PRN PRN Reason: DIALYSIS Last Admin: 03/24/25 16:14 Dose: 100 mls/hr Documented By: ED Sodium Chloride (Sodium Chloride Rt Annika 0.9% 3 Ml Nebu) 3 ml INH PRN PRN PRN Reason: SOLN Stop: 04/23/25 12:09 Discontinued Medications Albuterol (Albuterol Rt 2.5 Mg/0.5 Ml Nebu) 10 mg INH X1 ONE Stop: 03/24/25 12:12 Last Admin: 03/24/25 12:20 Dose: 10 mg Documented By: GARCÍA Albuterol (Albuterol Rt 2.5 Mg/0.5 Ml Nebu) 5 mg INH X1 ONE Stop: 03/24/25 13:49 Budesonide (Budesonide Rt 0.5 Mg/2 Ml Nebu) 0.5 mg INH X1 ONE Stop: 03/24/25 12:11 Last Admin: 03/24/25 12:20 Dose: 0.5 mg Documented By: GARCÍA Etomidate (Etomidate Inj 2 Mg/Ml Vial 10 Ml) 10 mg IVP X1 ONE Stop: 03/24/25 13:26 Last Admin: 03/24/25 13:36 Dose: 10 mg Documented By: ENE Magnesium Sulfate (Magnesium Sulfate Ivpb) 2 gm in 50 mls @ 25 mls/hr IV X1 ONE Stop: 03/24/25 14:31 Last Infusion: 03/24/25 14:46 Dose: Infused Documented By: Admin: 03/24/25 12:40 Dose: 25 mls/hr Documented By: ENE Vancomycin/Sodium Chloride (Vancomycin/Ns 750 Mg Ivpb) 750 mg in 150 mls @ 120 mls/hr IV X1 ONE Stop: 03/24/25 16:06 Methylprednisolone Sodium Succinate (Methylprednisolone Sod Succ 62.5 Mg/Ml 2ml Vial) 125 mg IVP X1 ONE Stop: 03/24/25 12:22 Last Admin: 03/24/25 12:35 Dose: 125 mg Documented By: DB Methylprednisolone Sodium Succinate (Methylprednisolone Sod Succ 40 Mg Vial) 60 mg IVP X1 ONE Stop: 03/24/25 13:52 Last Admin: 03/24/25 14:18 Dose: 60 mg Documented By: DB Rocuronium Stanton (Rocuronium Inj 10 Mg/Ml Vial 10 Ml) 50 mg IV X1 ONE Stop: 03/24/25 13:26 Last Admin: 03/24/25 13:36 Dose: 25 mg Documented By: ENE Co-signed By: BETTY Comments: PER DR. HOLLINS, ONLY 25MG WAS GIVEN Sodium Chloride (Sodium Chloride Rt 10% 15 Ml Nebu) 5 ml INH X1 ONE Stop: 03/24/25 13:52 see above Consultations Consultation(s) initiated? (list below): Yes Consultation #1 (Physician, Specialty, Details): Discussed test HPI, PMHx, lab, radiology results and/or management with Dr. Dr. Olea assistant executive housekeeper at [facility]. Accepts the patient for transfer. Time: 16:10 Diagnosis Shortness of Breath Differential Diagnosis: congestive heart failure, community acquired pneumonia, asthma with exacerbation and other (Sepsis, acute stroke, and uremic encephalopathy.) Most likely diagnosis given after review of the tests above:: Sepsis Respiratory failure Acute CHF Bilateral pneumonia COPD exacerbation Elevated troponin Admission Indicated Admission indicated?: not indicated Explain why admission is indicated or not indicated:: Patient needs higher level of care and will be transferred. Admission Request Was there a request for admission?: No Disposition Plan Disposition Plan: Transfer Critical Care Time Critical Care Time Critical Care Time: Yes Total Critical Care Time (min.): 180 Attestation: The high probability of sudden, clinically significant deterioration in the patient?s condition required the highest level of my preparedness to intervene urgently. The services I provided to this patient were to treat and/or prevent clinically significant deterioration. Services included the following: chart data review, reviewing nursing notes and/or old charts, documentation time, industrial methods consultant collaboration regarding findings and treatment options, medication orders and management, direct patient care, vital sign assessments and ordering, interpreting and reviewing diagnostic studies and lab tests. Aggregate critical care time includes only time during which I was engaged in work directly related to the patient?s care, as described above, whether at bedside or elsewhere in the Emergency Department. It did not include time spent performing other reported procedures or the services of residents, students, nurses or physician assistants. Discharge Plan Plan Patient Disposition: [facility] Pt Being Transferred to: [facility] Service Needed for Transfer: Pulmonology Prescriptions/Referrals Prescriptions/Med Rec: No Action megestrol 400 mg/10 mL (40 mg/mL) suspension 40 mg PO QDAY Qty: 240 0RF ondansetron 4 mg tablet,disintegrating 4 mg PO Q6H PRN (Reason: nausea and vomiting) Qty: 30 0RF Rx Instructions: disintegrating tablet clopidogrel [Plavix] 75 MG tablet 75 mg PO QDAY Qty: 30 0RF atorvastatin 40 mg Tablet 40 mg PO QDAY acetaminophen [Tactinal] 325 mg tablet 650 mg PO Q6H PRN (Reason: fever or pain) methimazole 5 mg Tablet 5 mg PO TID 30 Days Qty: 90 0RF diltiazem HCl 360 mg capsule,extended release 24hr 360 mg PO QDAY 30 Days Qty: 30 0RF prednisolone 5 mg (21 tabs) tablets,dose pack 5 mg PO QDAY 21 Days Qty: 21 0RF Rx Instructions: 21 day russ, please follow taper instructions lactulose [Constulose] 10 gram/15 mL solution 10 g PO QDAY PRN (Reason: constipation) Qty: 1200 0RF Breztri Aerosphere 160-9-4.8 mcg/actuation HFA aerosol inhaler 2 inh inhalation BID Qty: 10.7 3RF albuterol sulfate [Ventolin HFA] 90 mcg/actuation Hfa Aerosol Inhaler 2 puff INHALATION QID PRN (Reason: sob) 30 Days Qty: 2 0RF pantoprazole 20 mg tablet,delayed release (DR/EC) 20 mg PO BID Qty: 60 0RF Referrals: Ronald Woodruff MD [Primary Care Provider] - In 1 week Problem List Clinical Impression: Sepsis, Respiratory failure, Elevated troponin, Acute CHF, Bilateral pneumonia, COPD exacerbation Patient/Caregiver Discharge Instructions Print Language: Khmer Stand Alone Forms: Saranya Award Info., Patient Portal Info Letter
[2025-03-24 12:33] LABS: Base Excess -5 (-3-3); HCO3 25 mEq/L (20-26); Inspired Oxygen, FIO2 100 %; O2 Saturation 98 % (91-98); PCO2 88 mmHg (32.0-48.0); PO2 138 mmHg (83-108)
[2025-03-24 12:35] LABS: Allen Test Not Performed; Puncture Site Right Radial; pH, Arterial 7.06 (7.35-7.45)
[2025-03-24] MEDS: MethylPREDNISolone SOD SUCC 62.5 MG/ML 2ML VIAL 125 MG IVP (12:35)
[2025-03-24] MEDS: SODIUM CHLORIDE 0.9% 500 ML 500 ML 50 ML IV (12:35)
[2025-03-24 12:36] LABS: Lactate (Lactic Acid) 0.7 mMol/L (0.4-2.0)
[2025-03-24] MEDS: Magnesium Sulfate 2 GM Ivpb 2 GM/50 ML BAG IV (12:40)
--- NOTE | 2025-03-24 12:42 | XR_ITS ---
Examination: AP chest single view Technique one AP portable supine chest single view Date and time: March 24, 2025, 1318 hrs. Comparison March 21, 2025 Indications: Shortness of breath beginning 2 days ago. Findings: Interval prominent CHF Moderate enlargement cardiac contour with prominent vascular congestion and perihilar edema. Consider superimposed pneumonia right lung. Right internal jugular dialysis catheter tip SVC satisfactory position Impression: Interval prominent CHF Consider superimposed pneumonia right lung
[2025-03-24 12:52] LABS: Basophils # (Auto) 0.0 Thou/mm3 (0.0-0.2); Basophils % (Auto) 0 % (0-2.5); Eosinophils # (Auto) 0.0 Thou/mm3 (0.0-0.5); Eosinophils % (Auto) 0 % (0-10); Hematocrit 24.5 % (36.0-46.0); Immature Granulocytes Auto 0.69 Thou/mm3 (0.00-0.00); Lymphocytes # (Auto) 0.3 Thou/mm3 (1.0-4.8); Lymphocytes % (Auto) 1 % (10-50); Mean Corpuscular HGB Conc 33.1 g/dl (31.0-37.0); Mean Corpuscular Hemoglobin 30.3 pg (25.0-35.0); Mean Corpuscular Volume 92 fL (80-100); Monocytes # (Auto) 0.5 Thou/mm3 (0.0-0.8); Monocytes % (Auto) 2 % (0-12); Neutrophils # (Auto) 28.7 Thou/mm3 (1.8-7.7); Neutrophils % (Auto) 95 % (37-80); Nucleated Red Blood Cell # 0.60 Thou/mm3 (0.00-0.00); Nucleated Red Blood Cell % 2 /100 WBC (0); Platelet Count 171 Thou/mm3 (140-440); RDW Standard Deviation 52.9 fL (36.4-46.3); Red Blood Count 2.67 Miln/mm3 (4.00-5.20); White Blood Count 30.2 Thou/mm3 (3.6-11.0)
[2025-03-24 12:57] LABS: Alanine Aminotransferase 85 U/L (10-49); Albumin, Serum 3.5 gm/dL (3.4-4.8); Albumin/Globulin Ratio 1.8 (1.2-2.2); Alkaline Phosphatase 58 U/L (46-116); Anion Gap 12 (7-16); Aspartate Amino Transferase 25 U/L (0-34); BUN/Creatinine Ratio 20 Ratio (12-20); Bilirubin,Total 0.4 mg/dL (0.3-1.2); Blood Urea Nitrogen 81 mg/dL (9-23); Calcium 8.6 mg/dL (8.3-10.6); Calcium (Corrected) 9.0 mg/dL (8.5-10.1); Carbon Dioxide 26.0 mMol/L (20.0-31.0); Chloride 95 mMol/L (98-107); Creatinine (Component) 4.1 mg/dL (0.6-1.3); Estimated Creatinine Clearance 7.8 mL/min (>60); Globulin 2.0 gm/dL (2.3-3.5); Glucose 170 mg/dL (74-106); Magnesium 2.2 mg/dL (1.6-2.6); Osmolality,Calculated 294 (275-295); Potassium 5.3 mMol/L (3.4-5.1); Sodium 133 mMol/L (136-145); Total Protein 5.5 gm/dL (5.7-8.2); eGFR 10 See Note
[2025-03-24 13:00] LABS: INR 1.1 (0.9-1.3); Partial Thromboplastin Time 22.7 Seconds (22.0-36.0); Prothrombin Time 11.6 Seconds (9.0-12.2)
[2025-03-24 13:01] LABS: Troponin I 0.160 ng/mL (0.0-0.045)
[2025-03-24 13:10] LABS: Hemoglobin 8.1 g/dL (12.0-16.0)
[2025-03-24 13:18] LABS: B-Type Natriuretic Peptide 971 pg/mL (0-100)
[2025-03-24 13:21] LABS: Allen Test Not Performed; Base Excess -6 (-3-3); HCO3 25 mEq/L (20-26); O2 Saturation 93 % (91-98); PCO2 91 mmHg (32.0-48.0); PO2 91 mmHg (83-108); Puncture Site Left Radial
[2025-03-24 13:22] LABS: Inspired Oxygen, FIO2 85 %
[2025-03-24 13:23] LABS: pH, Arterial 7.05 (7.35-7.45)
[2025-03-24] MEDS: ROCURONIUM INJ 10 MG/ML VIAL 10 ML 50 MG IV (13:36)
[2025-03-24] MEDS: ETOMIDATE INJ 2 MG/ML VIAL 10 ML 10 MG IVP (13:36)
--- NOTE | 2025-03-24 13:41 | XR_ITS ---
Examination: AP chest single view Technique one AP portable supine chest single view Date and time: March 24, 2025 1355 hrs. Comparison March 24, 2025 1318 hrs. Indications: Hypoxic respiratory failure postintubation. Findings: Prominent CHF. Moderate enlargement cardiac contour with prominent vascular congestion and perihilar edema Right internal jugular dialysis catheter satisfactory position Tracheal tube tip 3 cm above serenity Orogastric tube is in the stomach Impression: Prominent CHF Endotracheal tube tip 3 cm above serenity
[2025-03-24] MEDS: fentaNYL 2,500 MCG/250 ML BAG 2,500 MCG/250 ML BAG IV (14:03)
[2025-03-24] MEDS: CLINDAMYCIN/NS 600 MG IVPB 600 MG/50 ML BAG 100 MG IV (14:14)
--- NOTE | 2025-03-24 14:29 | PC.NURSE ---
NO SEPSIS AT ALERT AT THIS TIME PER DR. HOLLINS
[2025-03-24 14:39] LABS: Procalcitonin 0.30 ng/ml (0.0-0.49)
[2025-03-24] MEDS: DOXYCYCLINE INJ 100 MG in SODIUM CHLORIDE 0.9% (POP) 100 ML IV (14:47)
[2025-03-24 15:16] LABS: Base Excess -5 (-3-3); HCO3 22 mEq/L (20-26); Inspired Oxygen, FIO2 21 %; O2 Saturation 97 % (91-98); PCO2 46 mmHg (32.0-48.0); PO2 90 mmHg (83-108); pH, Arterial 7.29 (7.35-7.45)
[2025-03-24 15:17] LABS: Allen Test Not Performed; Puncture Site Right Radial
--- NOTE | 2025-03-24 15:19 | PC.CM ---
Addendum entered by Siddhartha Harmon RN 03/24/25 16:34: 1620-Patient accepted by [facility], Dr. Olea for ER to ER transfer. [facility] transport set up with arrival time of 1640. Patient's daughter informed of accepting facility and pear picker time by [facility]. Packet left with ER CN Nora. Addendum entered by Siddhartha Harmon RN 03/24/25 15:40: 1535- Call to [facility] TC, spoke with ARNAV Barrett and provided clinical information and connected her with ER MD Yoo. Pending response at this time. Images sent to [facility] via [facility]. Addendum entered by Siddhartha Harmon RN 03/24/25 15:26: 1523- Call to [facility], spoke to ARNAV Rowley. Presented patient and provided clinical information. They have declined transfer based on they do not have pulmonology services available. Original Note: 1430- Received call from ER MD Yoo, requesting transfer for HLOC, patient is currently intubated, needs pulmonology, Nephrology for HD management, and infectious disease. Transfer packet created and sent to [facility], [facility], and [facility]. Packet created and imaging CD requested.
[2025-03-24] MEDS: ALBUMIN HUMAN 25% IVPB 25 GM/100 ML BTL IV (16:14)
--- NOTE | 2025-03-24 17:07 | PC.NURSE ---
José JOSÉ from [facility] requesting to take fentanyl drip, I called and spoke to [facility] pharmacist who reported that the flight team can take the fentanyl drip
--- NOTE | 2025-03-24 17:28 | PC.NURSE ---
CALLED AND SPOKE TO CASH RN AT [facility] TO WHOM I GAVE REPORT TOO
== END 2025-03-24 17:25 | disposition short-term general hospital (02) ==
PROVIDERS: Emergency Provider Family Medicine; PCP Family Medicine
DX: A41.9 Sepsis, unspecified organism (principal); J96.01 Acute respiratory failure with hypoxia; J44.1 Chronic obstructive pulmonary disease with (acute) exacerbation; I13.2 Hypertensive heart and chronic kidney disease with heart failure and with stage 5 chronic kidney disease, or end stage renal disease; I50.32 Chronic diastolic (congestive) heart failure; J44.0 Chronic obstructive pulmonary disease with (acute) lower respiratory infection; J18.9 Pneumonia, unspecified organism; I27.21 Secondary pulmonary arterial hypertension; Z78.1 Physical restraint status; E78.00 Pure hypercholesterolemia, unspecified; N18.6 End stage renal disease; Z99.2 Dependence on renal dialysis; I69.351 Hemiplegia and hemiparesis following cerebral infarction affecting right dominant side; Z75.1 Person awaiting admission to adequate facility elsewhere
CPT/HCPCS: 31500; 51702; 36415; 36600; 71045; 80053; 81001; 82803; 83605; 83735; 83880; 84145; 84484; 85025; 85610; 85730; 87040; 87077; 87186; 87205; 90935; 93005; 94002; 94644; 94660; 96361; 96365; 96366; 96374; 96375; 96376; 99285; J2919; J3010; J3475; J3490; J7999; P9047; S0077; G0257; J0737